=== PATIENT | female | born 1955 | race Caucasian/White ===

== ENCOUNTER → 2017-06-20 16:27 | Outpatient (CLI) | payer BC, SELFPAY ==
[2017-06-20 16:32] LABS: Mucous, Urine 0 SEEN /hpf (<or=2+); Red Blood Cells-Urine 0 SEEN /hpf (0-5); Squamous Epithelial Cells - UA 0 SEEN /hpf (5-10)
[2017-06-20 17:56] LABS: Glucose, Dipstick Normal (Normal); Ketone-Dipstick Negative (Negative); Leukocyte Esterase-Dipstick 100 /ul (Negative); Nitrite-Dipstick Positive (Negative); Occult Blood-Urine 10 /ul (Negative); Protein-Dipstick 15 mg/dl (Negative); Urine Clarity Sl. Cloudy (Clear); Urine Urobilinogen 8 mg/dl (Normal)
[2017-06-20 18:04] LABS: Color, Urine SEE COMMENT BELOW (Yellow); Urine Bilirubin Dipstick 6 mg/dL (Negative)
[2017-06-20 19:03] LABS: Bacteria 1+ /hpf (None Seen); White Blood Cells 50-100 SEEN /hpf (0-5)
== END ==
PROVIDERS: Family Provider Family Medicine; PCP Family Medicine; Visit Provider Family Medicine
DX: R30.0 Dysuria (principal)
CPT/HCPCS: 36415; 81001; 87086; 87088; 87186

== ENCOUNTER → 2017-07-09 13:51 | Outpatient (CLI) | payer BC, SELFPAY | PROVIDERS: Family Provider Family Medicine; PCP Family Medicine; Visit Provider Family Medicine | DX: R30.0 Dysuria (principal) | CPT/HCPCS: 87077; 87086; 87088; 87186 ==

== ENCOUNTER 2017-07-10 09:30 | Outpatient (RCR) | payer BC, SELFPAY ==
--- NOTE | 2017-06-23 15:49 | HP.PTEVAL_ITS ---
Patient's Visit Information YENNY LYNN is a 62 year old F referred to Physical Therapy by ROSALIO NUGENT with a diagnosis of S/P L3-S1 POSTERIOR FUSION WITH L5-S1 ALIP AND DURAL TEAR 01/23/17. Date of Evaluation: 06/23/17 Physical Therapist: Nita Cho - Visit Plan Frequency: 2x /Week Duration: 3 Months Plan: *NO BENDING OR TWISTING* (PATIENT IS ALSO UNDER RESTRICTION FROM LIFTING NOW PER PATIENT REPORT). VERY SLOW PROGRESSION OF AQUATIC THERAPY FOR POSTURE CORRECTION/STRENGTHENING, INSTRUCTION IN APPROPRIATE BODY MECHANICS AND ACTIVITY MODIFICATIONS. DLS STARTING WITH A NEUTRAL SPINE. EMIGDIO LE ROM, STRETCHING AND STRENGTHENING. HEP INSTRUCTION. - Subjective Subjective: Work/Leisure: NOT CURRENTLY WORKING AND NOT SURE IF SHE IS GOING TO BE ABLE TO GO BACK. Disability: ON CARE HOME DISABILITY THROUGH WORK. Present symptoms: NEAR CONSTANT PAIN ACROSS LOW BACK. INTERMITTENT EMIGDIO SHERMAN PAIN AND FOOT CRAMPS. (ALSO HAS NECK PAIN). Present since: 2012. Pain Scale : WORST 8/10, LEAST 0/10. PATIENT REPORTS HER PAIN HAS STARTED TO GET WORSE LATELY AND SHE THINKS IT IS BECAUSE SHE IS STARTING TO GET MORE ACTIVE. Currently: 07/12. Commenced as a result of: NO APPARENT REASON. Symptoms at onset: LOW BACK. Worse: NORMAL ACTIVITIES, DOING LAUNDRY, *SITTING IN A CHAIR *, BEING WITH GRANDCHILDREN. NEW MATTRESS THAT SHE GOT ABOUT 2 MONTHS AGO. Better: LYING DOWN FLAT ON BACK. ICE. MEDICATION. Disturbed sleep: YES. Previous history/Previous treatment: THIS IS HER THIRD BACK SURGERY. SHE HAS HAD PT AND [facility] PRIOR TO THIS LAST SURGERY IN JAN 2017. Coughing/sneezing/ straining: ? Gait: NO AD. INCREASED PAIN WITH PROLONGED WALKING. Difficulty initiating urinatin: NO. Accidents: NO. CHILDHOOD INJURY FROM HITTING A ROCK DIVING INTO A PICKETT. FELL OUT OF THE SHOWER TEENAGER. Unexplained weight loss: NO. Imaging: IMAGING AFTER SURGERY LOOKS GOOD ACCORDING TO DR. WYATT PER PATIENT REPORT. PMH: LEFT FOOT SURGERY 2011. HYSTERECTOMY ABOUT A YEAR AGO. - Objective Sitting Posture: POOR. Standing Posture: POOR. SCOLIOSIS. Lordosis: REDUCED. Active Correction of posture: WORSE. Other Observations: PATIENT CATCHES HER SELF BENDING AND TWISTING IN CLINIC TODAY AND TRIES TO AVOID. Motor deficit: EMIGDIO LE STRENGTH GROSSLY 4/5 WITH MMT. PROCEEDED CAREFULLY WITH TESTING. Sensory deficit: EMIGDIO LE LIGHT TOUCH SENSATION IS INTACT AND SYMMETRICAL WITH TESTING. ROM deficit: TIGHT EMIGDIO HIP FLEXORS. EMIGDIO HAMSTRING AND GASTROC SOLEUS TIGHTNESS WELL. Dural Signs: NEGATIVE EMIGDIO LE DURAL SIGNS. Lumbar mvmt loss: NT DUE TO CURRENT RESTRICTIONS. Core strength: POOR. Palpation: EMIGDIO LUMBAR TENDERNESS. INCISIONS LOOK TO BE WELL HEALED WITHOUT ANY SIGNS OF INFECTION. - Goals Goal 1:: DECREASE C/O LOW BACK AND EMIGDIO LE SX'S. Goal Time Frame: 4-6 Weeks Goal 2:: IMPROVE SITTING, STANDING, WALKING, ADL, RECREATIONAL AND HOMEMAKING FUNCTION. Goal Time Frame: 4-6 Weeks Goal 3:: INSTRUCT IN PROPHYLAXIS Goal Time Frame: 4-6 Weeks - Rehabilitation Potential Rehabilitation Potential: Fair - Anticipated Interventions Patient/Client Instruction: Educate patient on: Condition, Plan of Care, Risk Factors, Benefits of Fitness Program For the Purpose of:: To improve self management Therapeutic Exercise to Include: Strength training, Body mechanics, Postural training, In an aquatic setting, Dynamic Lumbar Stabilization Comment: AQUATIC THERAPY PROGRESSING TO LAND BASED PT TOLERATED. For the Purpose of:: To improve ability of physical actions for home/community/ work/leisure Manual Therapy Techniques to Include: Soft tissue mobilization For the Purpose of:: To decrease pain, To decrease swelling/inflammation, To improve nutrient delivery to tissue Thank you for the opportunity to evaluate your patient. For Medicare and Medicare HMO plans, please review the plan of care and approve it. It will need to be FAXED BACK to us at [phone] for Medicare purposes. Please let me know if there are questions or concerns regarding this plan of care. Physician Signature: Date:
--- NOTE | 2017-11-11 13:59 | HP.PTDCNRP_ITS ---
HP - Discharge Summary (1) - Patient Information YENNY LYNN was seen in my office for initial evaluation on 06/23/17. The following Plan of Care was established for this patient: Initial Frequency: 2x /Week Initial Duration: 3 Months - Anticipated Interventions Patient/Client Instruction: Educate patient on: Condition, Plan of Care, Risk Factors, Benefits of Fitness Program For the Purpose of:: To improve self management Therapeutic Exercise to Include: Strength training, Body mechanics, Postural training, In an aquatic setting, Dynamic Lumbar Stabilization For the Purpose of:: To improve ability of physical actions for home/community/ work/leisure Manual Therapy Techniques to Include: Soft tissue mobilization For the Purpose of:: To decrease pain, To decrease swelling/inflammation, To improve nutrient delivery to tissue This patient was last seen in our office 07/10/17. Pertinent comments regarding their Physical therapy will appear below: This patient has not returned to Physical Therapy and is appropriate to return to MD for further follow-up as needed. At this point I will be discontinuing this patient from physical therapy. I would be happy to see this patient again in the future if found appropriate by the physician. Thank you! Nita Cho
== END 2017-07-10 19:00 | disposition home or self-care (01) ==
LOC: PT 09:30
PROVIDERS: Family Provider Family Medicine; PCP Family Medicine
DX: Z98.1 Arthrodesis status (principal)
CPT/HCPCS: 97113; 97162

== ENCOUNTER → 2017-08-15 13:17 | Outpatient (CLI) | payer BC, SELFPAY ==
[2017-08-15 13:24] LABS: Lyme Ab Screen Interpretation REF LAB
[2017-08-15 14:16] LABS: Absolute Lymphocyte Count 1.79 X10^3/ul (0.83-4.51); Basophil# 0.02 X10^3/uL; Basophil% 0.3 % (0-1); Eosinophil# 0.05 X10^3/uL; Eosinophils% 0.8 % (0-5); Hematocrit 40.3 % (37-47); Hemoglobin 12.6 g/dl (12.0-15.0); Lymphocyte # 1.79 X10^3/ul (4.0); Lymphocyte % 28.4 % (19-41); Mean Corp Hgb Conc 31.3 g/gl (32-36); Mean Corpuscular Hgb 31.3 pg (27.0-32.0); Mean Platelet Vol. 10.1 fl (6.2-12.0); Monocyte# 0.46 X10^3/uL; Monocyte% 7.3 % (0-10); Neutrophil # 3.98 X10^3/uL (2.7-7.7); Neutrophil % 63.2 % (47-70); Platelet Count 259 K/mm3 (150-450); RBC Distribution Width CV 13.4 % (11.6-14.6); Red Blood Count 4.03 M/mm3 (4.2-5.4); White Blood Count 6.3 K/mm3 (4.4-11.0)
[2017-08-15 14:17] LABS: POSITIVE COUNT NO; POSITIVE DIFFERENTIAL NO; POSITIVE MORPHOLOGY NO
[2017-08-15 14:26] LABS: Vitamin D,25 Hydroxy 21.2 ng/mL (29.95-100.01)
[2017-08-15 14:41] LABS: ALB/GLOB Ratio 0.9 RATIO (0.9-2.4); AST(SGOT) 17 U/L (15-37); Alanine Aminotransfer ALT/SGPT 24 U/L (13-56); Albumin, Serum 3.6 g/dL (3.2-5.0); Alkaline Phosphatase 46 U/L (45-117); Anion Gap 6 (5-15); BUN 23 mg/dL (7-18); BUN/Creat Ratio 28.4 RATIO (10-20); Calcium,Total 8.7 mg/dL (8.5-10.1); Chloride 106 mmol/L (98-107); Creatinine, Serum 0.81 mg/dL (0.55-1.02); EST Glomerular Filtration Rate 76 mL/min (>60); Est Glom Filt Rate - Afr Amer 92 mL/min (>60); Globulin 3.9 g/dL (2.2-4.2); Glucose 90 mg/dL (74-106); Protein, Total 7.5 g/dL (6.4-8.2); Sodium Level 141 mmol/L (136-145)
[2017-08-17 07:55] LABS: Lyme Scn Total Ab w/Rflx <0.91 ISR (0.00-0.90)
== END ==
PROVIDERS: Family Provider Family Medicine; PCP Family Medicine; Visit Provider Family Medicine
DX: M13.0 Polyarthritis, unspecified (principal)
CPT/HCPCS: 36415; 80053; 82306; 84443; 85025; 86618

== ENCOUNTER → 2017-10-10 12:28 | Outpatient (CLI) | payer BC, SELFPAY ==
--- NOTE | 2017-10-10 12:28 | DT_ITS ---
This patient was seen during an EMR downtime October 06, 2017 - October 13, 2017. This patient may have a combination of paper and electronic documentation or all paper documentation. All documentation is viewable within the e-chart portion of [facility] for each patient visit.
== END ==
PROVIDERS: Visit Provider Family Medicine
DX: R30.0 Dysuria (principal)
CPT/HCPCS: 81001; 87077; 87086; 87088; 87186

== ENCOUNTER → 2017-10-14 14:39 | Outpatient (CLI) | payer BC, SELFPAY ==
--- NOTE | 2017-10-14 14:55 | RAD_ITS ---
STUDY: X-RAY - LUMBAR SPINE REASON FOR EXAM: Female, 62 years old. Increasing low back pain for 5 days. TECHNIQUE: 2 view(s) of the lumbar spine were obtained. COMPARISON: August 05, 2016 FINDINGS: There is generalized osteopenia. The patient has undergone posterior fusion from L3 to S1 since the prior comparison studies. There are laminectomy defects at L4-5 and there is lung grafting at this site. No complications are noted. There is rotatory levoscoliosis of the lumbar spine. There is mild intervertebral disc space narrowing most marked at L4-5 and L5-S1. There is vascular calcification. RAD/Lumbar Spine 2 or 3 Views IMPRESSION: Osteopenia with postsurgical changes. No complications are noted. Electronically Signed: Jr Vasquez MD at 13:50 EDT , Service support ,
== END ==
PROVIDERS: Family Provider Family Medicine; PCP Family Medicine
DX: M54.5 Low back pain (principal)
CPT/HCPCS: 72100

== ENCOUNTER → 2018-01-19 13:08 | Outpatient (CLI) | payer BC, SELFPAY ==
--- NOTE | 2018-01-19 13:15 | RAD_ITS ---
STUDY: X-RAY - LEFT SHOULDER REASON FOR EXAM: Female, 62 years old. Left shoulder pain after fall TECHNIQUE: 4 view(s) of the shoulder. COMPARISON: None. FINDINGS: There is mild degenerative arthrosis of the glenohumeral articulation. There is degenerative arthrosis of the acromioclavicular joint without inferior osseous spur formation. Normal acromion. Normal humeral head and visualized proximal humerus. The soft tissue structures are unremarkable. Normal visualized pulmonary apex. RAD/Shoulder min 2 Views IMPRESSION: Mild degenerative change. No evidence of fracture or dislocation Electronically Signed: Neymar Mccann DO at 13:34 EDT Tel , Service support ,
== END ==
PROVIDERS: Family Provider Family Medicine; PCP Family Medicine; Visit Provider Nurse Practitioner Family
DX: M25.512 Pain in left shoulder (principal)
CPT/HCPCS: 73030

== ENCOUNTER → 2018-02-16 10:26 | Outpatient (CLI) | payer BC, SELFPAY ==
[2018-02-16 12:24] LABS: Absolute Lymphocyte Count 2.16 X10^3/ul (0.83-4.51); Absolute Neutrophil Count 5.3 X10^3/uL (2.0-7.7); Basophil# 0.05 X10^3/uL; Basophil% 0.6 % (0-1); Eosinophil# 0.12 X10^3/uL; Eosinophils% 1.4 % (0-5); Hematocrit 40.7 % (37-47); Hemoglobin 13.2 g/dl (12.0-15.0); Lymphocyte # 2.16 X10^3/ul (4.0); Lymphocyte % 25.3 % (19-41); Mean Corp Hgb Conc 32.4 g/gl (32-36); Mean Corpuscular Volume 98.8 fL (81-99); Mean Platelet Vol. 10.9 fl (6.2-12.0); Monocyte# 0.88 X10^3/uL; Monocyte% 10.3 % (0-10); Neutrophil # 5.27 X10^3/uL (2.7-7.7); Neutrophil % 61.8 % (47-70); POSITIVE COUNT NO; POSITIVE DIFFERENTIAL NO; POSITIVE MORPHOLOGY NO; Platelet Count 264 K/mm3 (150-450); RBC Distribution Width CV 13.5 % (11.6-14.6); RBC Distribution Width SD 47.7 fl (35.1-43.9); Red Blood Count 4.12 M/mm3 (4.2-5.4); White Blood Count 8.5 K/mm3 (4.4-11.0)
[2018-02-16 12:59] LABS: ALB/GLOB Ratio 0.8 RATIO (0.9-2.4); AST(SGOT) 13 U/L (15-37); Alanine Aminotransfer ALT/SGPT 37 U/L (13-56); Albumin, Serum 3.4 g/dL (3.2-5.0); Alkaline Phosphatase 78 U/L (45-117); Anion Gap 10 (5-15); BUN 27 mg/dL (7-18); BUN/Creat Ratio 33.7 RATIO (10-20); CRP < 2.90 mg/L (0.0-3.0); Chloride 108 mmol/L (98-107); EST Glomerular Filtration Rate 77 mL/min (>60); Est Glom Filt Rate - Afr Amer 93 mL/min (>60); Globulin 4.2 g/dL (2.2-4.2); Glucose 119 mg/dL (74-106); Potassium 3.5 mmol/L (3.5-5.1); Protein, Total 7.6 g/dL (6.4-8.2); Sodium Level 143 mmol/L (136-145)
== END ==
PROVIDERS: Family Provider Family Medicine; PCP Family Medicine; Referring Provider Family Medicine; Visit Provider Family Medicine
DX: K57.92 Diverticulitis of intestine, part unspecified, without perforation or abscess without bleeding (principal)
CPT/HCPCS: 36415; 80053; 85025; 86140

== ENCOUNTER → 2018-02-17 09:58 | Outpatient (CLI) | payer BC, SELFPAY ==
--- NOTE | 2018-02-17 16:07 | PFTCOMP ---
COMPLETE PULMONARY FUNCTION TEST INTERPRETATION Brief HPI: Patient is a 63 year old female, currently under the care of myself, who presents to [facility] for complete pulmonary function tests secondary to diagnosis of bronchiectasis. Respiratory therapist reports good effort and reproducible results. Interpretation: Forced expiration spirometry shows no large airways obstructive ventilatory defect with an FEV1 of 92% predicted. There is no significant bronchodilator response by ATS criteria. Spirograms are of good quality and plateau slowly, indicating slowly emptying areas of the lungs. The respiratory flow volume loop shows decreased expiratory flow rates at high lung volumes consistent with small airways obstruction. Lung volumes by body plethysmography show a normal total lung capacity at 5.35 L, 110% predicted. All other lung volumes are within normal limits. Diffusion capacity by carbon monoxide is normal at 76% predicted. The airway resistance is normal. Compared to previous pulmonary function tests from 12/13/2016, there has been no significant change. Impression: These pulmonary function tests are within normal limits. No significant change compared to previous.
== END ==
PROVIDERS: Family Provider Family Medicine; PCP Family Medicine; Referring Provider Internal Medicine Critical Care Medicine; Visit Provider Internal Medicine Critical Care Medicine
DX: K57.92 Diverticulitis of intestine, part unspecified, without perforation or abscess without bleeding (principal); J45.909 Unspecified asthma, uncomplicated
CPT/HCPCS: 87506; 94060; 94726; 94729

== ENCOUNTER → 2018-02-19 17:58 | Outpatient (CLI) | payer BC, SELFPAY | PROVIDERS: Family Provider Family Medicine; PCP Family Medicine; Referring Provider Urology; Visit Provider Urology | DX: N39.0 Urinary tract infection, site not specified (principal) | CPT/HCPCS: 87086 ==

== ENCOUNTER 2018-03-05 09:51 | Day surgery (SDC) | payer BC, SELFPAY ==
--- NOTE | 2018-03-05 | COLBX_PTH ---
PATIENT: YENNY LYNN LOC: EN U#:[id number] AGE/SX: 63/F ROOM: RE03/05/[address]: Dr. Luis Carlos Trevizo MD : 1955 BED: DIS: 03/05/2018 SPEC #: [id number] RECD: 03/05/18 13:43 STATUS: DEV SANTO #: [id number] SAUNDRA: 03/05/18 00:[address]: Luis Carlos Trevizo DEPT: SURGICAL PATHOLOGY RECD BY: Silvestre Sanchez ENTERED: 03/05/18 13:44 SP TYPE: COLON BX OTHR DR: Dr. Julian Asher MD Tissues: COLON BIOPSY Procedures: Surgery Specimen Level IV HEADER OPERATION: Rectal bleeding PRE-OP DIAGNOSIS: Diarrhea TISSUE SUBMITTED: Random colon biopsies MICROSCOPIC DIAGNOSIS Colon, random biopsy: No significant pathologic change. No evidence of colitis. AM:samir 03/06/18 MICROSCOPIC DESCRIPTION Slides are reviewed. GROSS DESCRIPTION Received in fixative is one container labeled with the patient's name and designated random colon biopsy. The specimen consists of multiple irregular fragments of light engel soft tissue that in aggregate measure 1 x 0.5 x 0.2 cm. The specimen is totally submitted in one cassette. / AM:samir 03/05/18 TC:5 CPT: 42700
[2018-03-05 10:12] VITALS: BP 111/68; PULSE 73; RESP 16; TEMP 36.5; O2SAT 100
--- NOTE | 2018-03-05 11:05 | EKG12_ITS ---
Test Reason : PRE-OP Blood Pressure : / mmHG Vent. Rate : 068 BPM Atrial Rate : 068 BPM P-R Int : 144 ms QRS Dur : 084 ms QT Int : 444 ms P-R-T Axes : 001 -17 039 degrees QTc Int : 472 ms Normal sinus rhythm Leftward axis Confirmed by RAVI LEES, CARLINE ([id number]), business editor MARY ANN HORNE ([id number] on 03/05/2018 1:09:26 PM Referred By: Luis Carlos Trevizo Confirmed By:CARLINE RODRIGUES MD
[2018-03-05 11:40] VITALS: BP 111/68; BP 127/78; PULSE 70; RESP 16; TEMP 36.2; O2SAT 98
--- NOTE | 2018-03-05 11:42 | OP.ENDO_ITS ---
Patient Name: Jorge Luis Ding Procedure Date: 03/05/2018 10:51 AM Date of : 1955 Age: 63 Procedure: Colonoscopy Indications: Rectal bleeding Providers: Luis Carlos Trevizo MD Medicines: See the Anesthesia note for documentation of the administered medications Patient Profile: Last Colonoscopy: February 2011. Complications: No immediate complications. Procedure: Pre-Anesthesia Assessment: - Prior to the procedure, a History and Physical was performed, and patient medications and allergies were reviewed. The patient's tolerance of previous anesthesia was also reviewed. The risks and benefits of the procedure and the sedation options and risks were discussed with the patient. All questions were answered, and informed consent was obtained. Prior Anticoagulants: The patient has taken no previous anticoagulant or antiplatelet agents. ASA Grade Assessment: II - A patient with mild systemic disease. After reviewing the risks and benefits, the patient was deemed in satisfactory condition to undergo the procedure. After I obtained informed consent, the scope was passed under direct vision. Throughout the procedure, the patient's blood pressure, pulse, and oxygen saturations were monitored continuously. The Colonoscope was introduced through the anus and advanced to the cecum, identified by appendiceal orifice and ileocecal valve. The colonoscopy was unusually difficult due to a tortuous colon. Successful completion of the procedure was aided by increasing the dose of sedation medication, changing the patient to a supine position and using manual pressure. The patient tolerated the procedure well. The quality of the bowel preparation was adequate to identify polyps. Scope In: 11:05:49 AM Scope Withdrawal Time 0 hours 8 minutes 7 seconds Scope Out: 11:33:48 AM Total Procedure Duration Time 0 hours 27 minutes 59 seconds Findings: Hemorrhoids were found on perianal exam. Multiple diverticula were found in the sigmoid colon and descending colon. There was no evidence of diverticular bleeding. Biopsies for histology were taken with a cold forceps from the entire colon for evaluation of microscopic colitis. Impression: - Hemorrhoids found on perianal exam. Grade I internal, non bleeding - Severe diverticulosis in the sigmoid colon and in the descending colon. There was no evidence of diverticular bleeding. Random biopsies obtained for possible microcytic colitis No active bleeding at the time of the exam Very tortuous sigmoid/descending/splenic flexure. Etiology to history of bleeding not detected on this exam Recommendation: - Discharge patient to home. - Resume previous diet. - Continue present medications. - Telephone my office for pathology results in 1 week. - Repeat colonoscopy in 10 years for screening purposes. Procedure Code(s): --- Professional --- 76354, Colonoscopy, flexible; with biopsy, single or multiple Diagnosis Code(s): --- Professional --- K64.9, Unspecified hemorrhoids K62.5, Hemorrhage of anus and rectum K57.30, Diverticulosis of large intestine without perforation or abscess without bleeding CPT copyright 2017 [employer]. All rights reserved. The codes documented in this report are preliminary and upon leadership coach review may be revised to meet current compliance requirements. Luis Carlos Trevizo MD 03/05/2018 11:41:43 AM This report has been signed electronically. Number of Addenda: 0 Note Initiated On: 03/05/2018 10:51 AM
[2018-03-05 11:45] VITALS: BP 111/68; BP 121/77; PULSE 73; RESP 16; O2SAT 96
[2018-03-05 11:50] VITALS: BP 111/68; BP 121/75; PULSE 70; RESP 16; O2SAT 95
[2018-03-05 11:55] VITALS: BP 111/68; BP 124/81; PULSE 66; RESP 16; TEMP 36.4; O2SAT 97
[2018-03-05 12:12] VITALS: BP 111/68
== END 2018-03-05 12:12 | disposition home or self-care (01) ==
LOC: EN 09:52 → AC 09:53
PROVIDERS: Family Provider Family Medicine; PCP Family Medicine; Referring Provider Surgery; Visit Provider Surgery
PROC: 0DJD8ZZ Inspection of Lower Intestinal Tract, Via Natural or Artificial Opening Endoscopic (ICD-10-PCS; CPT 45378; principal; 2018-03-05 10:55)
DX: K64.0 First degree hemorrhoids (principal); K57.30 Diverticulosis of large intestine without perforation or abscess without bleeding; Q43.8 Other specified congenital malformations of intestine; M41.9 Scoliosis, unspecified; J44.9 Chronic obstructive pulmonary disease, unspecified; K21.9 Gastro-esophageal reflux disease without esophagitis; M19.90 Unspecified osteoarthritis, unspecified site; K58.9 Irritable bowel syndrome, unspecified; F41.9 Anxiety disorder, unspecified; Z78.0 Asymptomatic menopausal state; Z87.448 Personal history of other diseases of urinary system; Z85.828 Personal history of other malignant neoplasm of skin; Z86.19 Personal history of other infectious and parasitic diseases; Z79.82 Long term (current) use of aspirin; Z79.899 Other long term (current) drug therapy; Z87.891 Personal history of nicotine dependence
CPT/HCPCS: 45380; 88305; 93005; J7120

== ENCOUNTER → 2018-03-18 12:20 | Outpatient (CLI) | payer BC, SELFPAY ==
[2018-03-18 14:12] LABS: Absolute Lymphocyte Count 1.49 X10^3/ul (0.83-4.51); Absolute Neutrophil Count 4.2 X10^3/uL (2.0-7.7); Basophil# 0.03 X10^3/uL; Basophil% 0.4 % (0-1); Hematocrit 41.2 % (37-47); Hemoglobin 13.1 g/dl (12.0-15.0); Lymphocyte # 1.49 X10^3/ul (4.0); Lymphocyte % 22.1 % (19-41); Mean Corp Hgb Conc 31.8 g/gl (32-36); Mean Corpuscular Hgb 32.1 pg (27.0-32.0); Mean Platelet Vol. 10.7 fl (6.2-12.0); Monocyte# 0.81 X10^3/uL; Neutrophil # 4.17 X10^3/uL (2.7-7.7); Neutrophil % 62.1 % (47-70); Platelet Count 247 K/mm3 (150-450); Red Blood Count 4.08 M/mm3 (4.2-5.4); White Blood Count 6.7 K/mm3 (4.4-11.0)
[2018-03-18 14:14] LABS: POSITIVE COUNT NO; POSITIVE DIFFERENTIAL NO; POSITIVE MORPHOLOGY NO
[2018-03-18 14:22] LABS: ALB/GLOB Ratio 0.8 RATIO (0.9-2.4); AST(SGOT) 16 U/L (15-37); Alanine Aminotransfer ALT/SGPT 35 U/L (13-56); Albumin, Serum 3.4 g/dL (3.2-5.0); Alkaline Phosphatase 75 U/L (45-117); Anion Gap 7 (5-15); BUN 27 mg/dL (7-18); BUN/Creat Ratio 33.8 RATIO (10-20); Calcium,Total 8.7 mg/dL (8.5-10.1); Chloride 108 mmol/L (98-107); EST Glomerular Filtration Rate 77 mL/min (>60); Est Glom Filt Rate - Afr Amer 93 mL/min (>60); Globulin 4.1 g/dL (2.2-4.2); Glucose 84 mg/dL (74-106); Hemoglobin A1c 5.4 % (4.2-6.3); Magnesium 2.1 mg/dL (1.6-2.6); Potassium 3.8 mmol/L (3.5-5.1); Protein, Total 7.5 g/dL (6.4-8.2); Sodium Level 143 mmol/L (136-145)
== END ==
PROVIDERS: Family Provider Family Medicine; PCP Family Medicine; Referring Provider Family Medicine; Visit Provider Family Medicine
DX: R25.2 Cramp and spasm (principal)
CPT/HCPCS: 36415; 80053; 83036; 83735; 85025

== ENCOUNTER → 2018-04-07 13:00 | Outpatient (CLI) | payer BC, SELFPAY | PROVIDERS: Family Provider Family Medicine; PCP Family Medicine; Referring Provider Urology; Visit Provider Urology | DX: R30.0 Dysuria (principal); R39.15 Urgency of urination | CPT/HCPCS: 87077; 87086; 87088; 87186 ==

== ENCOUNTER → 2018-04-08 10:08 | Outpatient (CLI) | payer BC, SELFPAY ==
[2018-03-12 07:14] VITALS: BMI 22.3
--- NOTE | 2018-04-08 10:14 | BD_ITS ---
STUDY: DUAL ENERGY X-RAY ABSORPTIOMETRY / DXA REASON FOR EXAM: Female, 63 years old. The patient is postmenopausal. Loss of height. TECHNIQUE: Bone Mineral Density (BMD) measurements of lumbar spine and bilateral hips were obtained. COMPARISON: Comparison is made with prior examination dated October 19, 2015. FINDINGS: Lumbar Spine (L1-L4): g/cm2 (0.600) / T-score (-4.7) / Z-score (-3.2) Findings are suggestive of osteoporosis with a high fracture risk. Left Femur Total: g/cm2 (0.611) / T-score (-3.1) / Z-score (-2.0) Left Femoral Neck: g/cm2 (0.647) / T-score (-2.8) / Z-score (-1.4) Right Femur Total: g/cm2 (0.679) / T-score (-2.6) / Z-score (-1.5) Right Femoral Neck: g/cm2 (0.704) / T-score (-2.4) / Z-score (-1.0) The T-Scores on the most recent prior examination were: Lumbar Spine (L1-L4): There has been worsening of bone density since the previous examination. Left Femur Total: which represents a worsening of 5.1%. Right Femur Total: which represents an improvement of 2.1%. BD/Dexa Bone Density Study IMPRESSION: The patient is considered osteoporotic as outlined below according to World Mandeep Organization (WHO) criteria with a high fracture risk. There has been worsening of bone density since the previous examination. Reference Information: The T-score is the number of standard deviations above or below the standard which is normal for young adults at their peak bone mineral density. The World Health Organization (WHO) interprets the T-scores as follows: Above -1 Normal bone density Between -1 and -2.5 Osteopenia Equal to / or below -2.5 Osteoporosis As a practical clinical guideline, osteopenia may be graded as follows: Mild -1 through -1.5 Moderate -1.6 through -2.0 Severe -2.1 through -2.4 The Z-score is the number of standard deviations above or below age-matched controls. A Z-score of less than -1.5 would be considered abnormal. References: 1. NIH Osteoporosis and Related Bone Diseases http://www.osteo.org 2. International Society for Clinical Densitometry http://www.iscd.org 3. National Osteoporosis Foundation http://www.nof.org Electronically Signed: Aidan Viramontes MD at 15:50 EST Tel [phone], Service support ,
== END ==
PROVIDERS: Family Provider Family Medicine; PCP Family Medicine; Visit Provider Family Medicine
DX: M81.0 Age-related osteoporosis without current pathological fracture (principal)
CPT/HCPCS: 77080

== ENCOUNTER → 2018-04-24 14:22 | Outpatient (CLI) | payer BC, SELFPAY ==
--- NOTE | 2018-04-24 14:25 | CT_ITS ---
STUDY: CT CHEST WITHOUT CONTRAST REASON FOR EXAM: Female, 63 years old. Chest nodule. RADIATION DOSAGE (If Supplied By Facility): CTDIvol = ( 7.46 ) mGy, DLP = ( 211.10 ) mGycm TECHNIQUE: Transaxial imaging was performed without the administration of intravenous contrast material. Individualized dose optimization techniques were used for this CT. COMPARISON: April 29, 2014, September 04, 2015 and May 23, 2017 FINDINGS: There are emphysematous changes present. Within the right middle lobe along the right minor fissure there is a stable smooth 6.8 mm nodule present. There is a new cluster of nodules within the periphery of the right middle lobe with a tree-in-bud configuration. There is biapical scarring present. There are calcifications of the coronary arteries. Normal mediastinum. Normal hilar regions. Normal unenhanced pulmonary arteries. There is atherosclerosis of the aortic arch and descending thoracic aorta. There is a stable rounded soft tissue nodule within the right breast. There are multi-level degenerative changes of the thoracic spine. There are pedicle screws and spinal rods noted within the visualized lower lumbar spine. There is no demonstrated abnormality of the visualized upper abdomen. CT/Chest without Contrast IMPRESSION: Stable 6.8 mm nodule within the right middle lobe since April 29, 2014 that has an appearance suggestive of an underlying lymph node. New cluster of nodular opacities within the right lower lobe likely secondary to a prior infectious process. Emphysema. Atherosclerosis. Electronically Signed: Marina Brand MD at 17:33 EST Tel , Service support ,
== END ==
PROVIDERS: Family Provider Family Medicine; PCP Family Medicine; Referring Provider Nurse Practitioner Acute Care; Visit Provider Nurse Practitioner Acute Care
DX: R91.1 Solitary pulmonary nodule (principal)
CPT/HCPCS: 71250

== ENCOUNTER 2018-06-23 11:40 | Outpatient (RCR) | payer BC, SELFPAY ==
[2018-05-01 14:50] VITALS: BMI 22.6
--- NOTE | 2018-06-23 15:53 | HP.FCE ---
HP OT Functional Capacity Eval - Task Lift Floor (Occasional 1-33% of Day): 5 lbs Floor (Frequent 34-66% of Day): negligible Floor (Constant 67-100% of Day): negligible Floor PDL: Sedentary Knee (Occasional 1-33% of Day): 10 lbs Knee (Frequent 34-66% of Day): 5 lbs Knee (Constant 67-100% of Day): negligible Knee PDL: Sedentary Waist (Occasional 1-33% of Day): 15 lbs Waist (Frequent 34-66% of Day): 7 lbs Waist (Constant 67-100% of Day): negligible Waist PDL: Sedentary-Light Shoulder (Occasional 1-33% of Day): 8 lbs Shoulder (Frequent 34-66% of Day): negligible Shoulder (Constant 67-100% of Day): negligible Shoulder PDL: Sedentary Overhead (Occasional 1-33% of Day): 5 lbs Overhead (Frequent 34-66% of Day): negligible Overhead (Constant 67-100% of Day): negligible Overhead PDL: Sedentary - Work Activity/Posture Bending: Frequent Ability (34-66% of day) Squatting: Occasional Ability (1-33% of day) Kneeling: No Ablility (0% of day) Comments: She should avoid this task at this time. Reaching out: Frequent Ability (34-66% of day) Reaching up: Frequent Ability (34-66% of day) Sitting: Occasional Ability (1-33% of day) Walking: Occasional Ability (1-33% of day) Standing: Frequent Ability (34-66% of day) - Reference Duration Sedentary Sedentary Light Light Light Medium Medium Medium Heavy Very Heavy Heavy Occasional (0-33% of day) Frequent (34-66% of day) Constant (67-100% of day) 10 # Negligible Negligible 15 # 8 # Negligible 20 # 10# Negli. 35 # 18 # 7 # 50 # 25 # 10 # 75 # 100 # >100 # 38 # 50 # >50 # 15 # 20 # >20 # - Patient Information Height: 1.63 m Weight:: 58.967 kg Hand Dominance: Right BP (Medication Use/Usual Values per pt report): no - Medical History Medical History Including Restrictions: No medication restrictions provided by pateint or by doctor. - Diagnoses Diagnoses: Jorge Luis was currently referred for functional capacity evaluation on this date of 06/23/17 due to chronic low back pain, spinal stenosis, and sacroilritis. PMHx: scoliosis of thoracolumbar spine, L4-S1 fusion (2016 and 2017), Lumbar disc disease, COPD, asthma, neuropathic pain degenerative disc disc, dejenerative joint disc, and osteoporesis. - Symptoms Symptoms: She notes that if she stands too long her feet go ?numb? and if sits too long feet will go ?numb?. She notes she gets muscle spasms at night and is currently on baclofen to help manage muscles spasms. She is currently on a pain management program. She was previously seeing Dr. Montelongo for spinal injections but explained the injections did not work. Per patient report she noted that Dr. Montelongo wanted to complete pain simulator but decided against it. She currently see Dr. Montelongo every three months. Medications come from Dr. Lb gonzalez. - Pain Pain: She notes she has not worked since first lumbar fusion in 2016. She noted that 2017 she underwent surgical revision surgery of 2016 fusion surgery. She noted that the surgery in 2016 resulted in her R side collapsing and causing a subdermal leak which resulted in spinal fusion revision. She notes that if she stands too long her feet go ?numb? and if sits too long feet will go ?numb?. She notes she gets muscle spasms at night and is currently on baclofen to help manage muscles spasms. She is currently not on a pain management program. She was previously seeing Dr. Montelongo for spinal injections but explained the injections did not work. Per patient report she noted that Dr. Montelongo wanted to complete pain simulator but decided against it. Jorge Luis is currently not on a pain management program. She noted she has start yoga in [facility] for gentle stretching ut has not been completing recently. Kelly Pain Questionnaire is a self-report pain assessment to determine a patient?s accurate psychodynamics for accurate pain rating. A score of 30 or high indicates poor psychodynamics and the greater probability of decreased accuracy with accurate pain reporting. Pre- Kelly: 43. Post Kelly: 58. Fear Avoidance Questionnaire (FAQ) is a client self-report assessment for 18-64+ that has shown to be reliable and valid for determining increased fear with movements. A score of 96 or higher indicates increased fear avoidance behaviors. FAQ Pre-testin. -Physical Activity Subscale: 24. -Work Subscale: 42. FAQ Post- testin. -Physical Activity Subscale: 24. -Work Subscale: 42. Oswestry Neck and Low back questionnaire is a self-report assessment in which patients report their perceived level of disability based on their perceived pain. Pre Oswestry : /50 or 48% percieved disability. Post Oswestry : 50 46% percieved disability - Work History Work History: She is no longer working. Jorge Luis reports that has not worked since her 2016 spinal fusion surgery. 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 She reports relatively no standing and sitting 8-10 hours. She noted short walking breaks. She noted occassionally walked throughout the day. - Behavioral Behavioral: I worked hard all my life, and would still be working if i haven't had so much back trouble.....Some days all I can do is lay on my back to help manage my pain. i hate taking pain medications but I relaly have no choice. - ADLS ADLS: She lives in [place] with two steps to enter with her . She noted she has 16 steps to get to bedroom and sleeps in bedroom completing 16 steps daily. She noted that there are 11 steps to basement where laundry is located, and she is able to complete with completing carrying laundry upstairs. She reports still driving, helping care for grandkids (does not lift), and completing all self-care tasks independently. She care for house isabel but cleans litter boxes. - Physical Examination Physical Examination: The purpose of this functional capacity evaluation (FCE) was to determine Jorge Luis?s physical ability. This one day FCE was performed in order to house wirer helper in the determination of Jorge Luis?s eligibility to get social security disability. Pain rated at start of session: 6/10 pain. Attempted to use functional pain scale but inconsisent pain. At first. Able to correct use of pain scale thoughout session. Aerobic limiting factor: 85% of max adjust HR= (220-age) *.85= 133 bpm. Calculated max weight: 60% of weight= 78 lbs. Resting Diagnostics: -Resting Blood Pressure: 142 / 93 mmHg. -Resting Heart Rate: 77 bpm. -Pulse Oximeter: 100 % ROM: Range of Motion: Lumbar Spine with goniometer: -Flexion: 0-15 , noted pain minimal and increased thoracic compensations noted with movements. Difficulty to get true reading lumbar spine. Completed inclinometer. -Extension: 0-12, noted pain minimal and increased thoracic compensations noted with movements. -Lateral Flexion: R 0-8 , L 0-12. Lumbar spine with use of inclinometer: -Flexion: L1 40 , L 5 46. oTotal flexion: ?10 degrees: 6. -Extension: L1 0-10 , L 5 0-5. oTotal extension: ?10 degrees: 5 degree Strength: Strength: Strength measurements completed with use of manual muscle testing and short arm access of dynamometer. Results are as follows: Upper Body: Shoulder flexion: R 4-/5, L 4-/5. -Dynamometer: R 7.7 lbs , L 5.6 lbs. Shoulder extension: R 4-/5, L 4-/5. -Dynamometer: R 10 , L 7.7 lbs. Shoulder abduction: R 4-/5, L 4-/5. -Dynamometer: R 6.8 , L 5.9 lbs. Shoulder adduction: R 4-/5, L 4-/5. -Dynamometer: R 9.0 , L 10.2 lbs. Shoulder Internal Rotation: R 4-/5, L 4-/5. -Dynamometer: R 9.8 , L 7.7 lbs. Shoulder External Rotation: R 4-/5, L 4-/5. -Dynamometer: R 6.5 , L 7.9 lbs. Elbow flexion: -Dynamometer: R 8.8 , L 9.3 lbs. Elbow extension: R 4-/5, L 4-/5. -Dynamometer: R 7.7 , L 8.2. Lower Body: Hip flexion: R 3+/5, L 3/5. -Dynamometer: R 9.5 , L 10.1. Hip adduction: R 4-/5, L 4-/5. -Dynamometer: R 8.5 , L 7.7 lbs. Hip abduction: R 4-/5, L 4-/5. -Dynamometer: R 9.8 , L 8.1. Knee Flexion: R 4-/5, L 4-/5. -Dynamometer: R 11.7 , L 11 lbs. Knee extension: R 4-/5, L 4-/5. -Dynamometer: R 9.4 , L 11.2 lbs. Plantarflexion: R 4-/5, L 4-/5. -Dynamometer: R 14.1, L 10.9 lbs. Dorsiflexion: R 4-/5, L 4-/5. -Dynamometer: R 13.6 , L 8.8 lbs. Inconsistencies noted with manual muscle testing and breaks consisently with minimal pressure. Completed dyanmometer testing Right Mirror Painter Strength Average: 33.66 Left Mirror Painter Strength Average: 30.33 Right Lateral Pinch Average: 6.66 Left Lateral Pinch Average: 6.00 Right Tripod Pinch Average: 3.66 Left Tripod Pinch Average: 6.00 Comments: Five Span Mirror Painter testing on Dynamometer: Position 1: R 15 , L 6. Position 2: R 15 , L 23. Position 3: R 17 , L 19. Position 4: R 10 , L 7. Position 5: R 4 , L 8. Coefficient of variation: Consistency of Effort: Rapid Mirror Painter Exchange Testing: Right Average: 18, 5, 12. Left Average: 17, 7, 19. Coefficient of Variation: Consistency of Effort: Sensation: Sensory Testing: Sensation testing completed on bilateral feet with monofilament touch test. A score of normal on touch test is 2.83 and within normal range with just some discrepancies for light touch is between 3.22-3.61. The higher the number in more complications related to patient?s ability to perceive touch related sensory stimuli. R foot: Great Toe 5.07 ,2nd 3.84 , 3rd 4.17 , 4th 4.56 , 5th 3.61. L foot: Great Toe 4.56 ,2nd 4.17 , 3rd 5.46 , 4th 4.74 , 5th 4.17. Red lined on few toes showing increased numbness and tingling feelings. Able to complete tailor sit to don and doff shoes and socks. Fine Motor: Fine motor: Completed the Purdue Pegboard test to further determine the patient?s ability to complete 20-3 step tasks, assess fine motor control and general dexterity needed to complete assembly like work. The results are as follows: Completed in standing position as perferred due to pain. Compensations of leaning of table noted. Right Hand: 10 pegs. -Percentile: Left Hand: 8 pegs. -Percentile. Both Hands: 5 pegs. -Percentile. R+ L+ Both: 23 pegs. -percentile: Assembly: 3. -percentile: Balance: Heart rate: 80 bpm. Oximeter: 97%. Functional reach test is used to determine static balance in patients. A score of 15 is normal and less than 10 increases risk of falling. A score of 6 or less significantly increases a patient?s risk of falling. [place] 1: 8 inches. [place] 2: 7.5 inches. [place] 3: 7.0 inches. Average: 7.5 inches. Heart rate: 78 bpm. Pulse Oximeter: 95%. Blood Pressure: 150/92 mmHg. Functional Gait Assessment (FGA) is a dynamic balance test to determine vestibular functioning and general dynamic balance ability of patient 18-65+. This assessment can be used with clients of various backgrounds to determine functional dynamic balance needed to complete every day work related tasks. 1.Gait Level Surface:2. 2.Change in Gait Speed: 2. 3.Gait with horizontal head turns: 2. 4.Gait with vertical head turns:2. 5.Gait and pivot turn:2. - needed short walking brake to get and take gabapetin. 6.Step over obstacle:1. 7.Gait with narrow base of support: 0. 8.Gait with eyes closed: 1. 9.Ambulating Backwards: 1. Heart rate prior to steps: 77 bpm. Blood Pressure: 135/105 mmHg. 10.Steps (20 stairs): 2. Total Score: 15/maximum score 30. Heart rate post stairs: 89 bpms. Pain: 5/10 - Non Material Handling Activities Bending: Heart rate prior to beginning with use of pulse oximeter: 78 bpm. 3x, 10x in completed 6x with short standing break and then 4 x more repetitions with a total time to complete of 59 seconds. Noted after 6x I really don't want to do anymore , pain is getting bad. No mechanical comepnsations noted and encouraged to continue if tolerable. Able to continue. 10x faster in 35 seconds. Completed 50% of full bend. Observed with fair body mechanics. Completes with. Heart rate posttest with use of pulse oximeter: 97 bpm. Nina Rate of Perceived Exertion: 8. Perceived pain: 5.5/10 Squatting: Heart rate prior to beginning with use of pulse oximeter: 77 bpm. 3x, 10x in 33 seconds, and 10x faster in 16 seconds. Heart rate posttest with use of pulse oximeter: 82. Nina Rate of Perceived Exertion: 8. Perceived pain:5.5/10 Kneeling: Heart rate prior to beginning with use of pulse oximeter: 79. 3x but increased mechanical changes and deficits observed and task stopped due to safety concerns. Need for short 2 mins seated break post task. Completed with poor body mechanics. She completed slight right lateral leaning, increased need to use right upper extremity for external suppor to complete task. This task should ne avoid due to mechanical deficits. Heart rate posttest with use of pulse oximeter: 92 bpm. Nina Rate of Perceived Exertion: 8. Perceived pain:5.5/10 Reaching out/up: Heart rate prior to begining with use of pulse oximeter: 89 bpm. From standing position: Reaching up: 3x, 10x in 12 seconds, and 10x faster in 7 seconds. From standing position: Reaching out: 3x, 10x in 16 seconds, and 10x faster in 8 seconds. Heart rate post test with use of pulse oximeter: 108. Nina Rate of Percieved Exertion: 10. Percieved pain: 5.5/10 Walking: Heart rate prior to begining with use of pulse oximeter: 76 bpm. Completes 100 yard walking test in 81 seconds. Completed walking 15 minutes with mild antalgic gait. Noted increased numbness in bilateral feet. Completed 1276 feets within 15 minutes of walking. Heart rate post test with use of pulse oximeter: 109 bpm. Blood Pressure: 104/66 mmHg. Nina Rate of Percieved Exertion: 7. Percieved pain: 5/10 Standing: Able to tolerate. Nina Rate of Perceived Exertion: 8. Perceived pain: between 5-5.5/10 Sitting: Heart rate prior to beginning with use of pulse oximeter: Able to tolerate about 15-20 minutes prior to needing to change position to standing. No pain medications with completion of task. Shortly took pain medication after starting session. Heart rate posttest with use of pulse oximeter: Nina Rate of Perceived Exertion: Perceived pain: Climbing Stairs: Heart rate prior to begining with use of pulse oximeter: 77 bpm. She is able to complete acsending and decending 20 stairs with use of 1x handrails and alternating fot pattern. Vision used to promote foot placement. Heart rate post test with use of pulse oximeter: 89 bpm. Nina Rate of Percieved Exertion: 8. Percieved pain: 5.5/10 - Dynamic Occasional Lifting Capacity Floor Lift: Heart rate prior to beginning with use of pulse oximeter: 78 bpm. Occasional Liftinx 5 lbs. Frequent lifting: negligible. Heart rate posttest with use of pulse oximeter: 88 bpm. Nina Rate of Perceived Exertion: 13. Perceived pain: 6/10 Knee Lift: Heart rate prior to beginning with use of pulse oximeter: 78 bpm. Occasional Liftinx 10 lbs. Frequent lifting: negligible. Heart rate posttest with use of pulse oximeter: 93 bpm. Nina Rate of Perceived Exertion: 13. Perceived pain: 6/10 Waist Lift: Heart rate prior to beginning with use of pulse oximeter: 75 bpm. Max weight: 20 lbs. Occasional Liftinx 15 lbs. Frequent liftinx 7 lbs. Heart rate posttest with use of pulse oximeter: 80 bpm. Nina Rate of Perceived Exertion: 13. Perceived pain: 6/10 Shoulder Lift: Heart rate prior to beginning with use of pulse oximeter: 81 bpm. Occasional Liftinx 8 lbs. Frequent liftinx 5lbs lbs. Heart rate posttest with use of pulse oximeter: 84. Nina Rate of Perceived Exertion: 13. Perceived pain: 6/10 Overhead Lift: Heart rate prior to beginning with use of pulse oximeter: 91 bpm. Occasional Liftinx 5lbs lbs. Frequent lifting: negligible. Heart rate posttest with use of pulse oximeter: 95 bpm. Nina Rate of Perceived Exertion: 13. Perceived pain:6/10 Carrying: Heart rate prior to beginning with use of pulse oximeter: 92 bpm. Occasional Liftinx 5 lbs. Frequent lifting: negligible. Increased compensatiosn noted. Heart rate posttest with use of pulse oximeter: 85 bpm. Nina Rate of Perceived Exertion: 13. Perceived pain: 6/10 Comments: Ending diagnositics: Heart rate: 79 bpm. Blood Pressure: 121/89 bpm
--- NOTE | 2018-06-25 11:16 | HP.OTFCE_ITS ---
HP OT Functional Capacity Eval - Task Lift Floor (Occasional 1-33% of Day): 5 lbs Floor (Frequent 34-66% of Day): negligible Floor (Constant 67-100% of Day): negligible Floor PDL: Sedentary Knee (Occasional 1-33% of Day): 10 lbs Knee (Frequent 34-66% of Day): 5 lbs Knee (Constant 67-100% of Day): negligible Knee PDL: Sedentary Waist (Occasional 1-33% of Day): 15 lbs Waist (Frequent 34-66% of Day): 7 lbs Waist (Constant 67-100% of Day): negligible Waist PDL: Sedentary-Light Shoulder (Occasional 1-33% of Day): 8 lbs Shoulder (Frequent 34-66% of Day): negligible Shoulder (Constant 67-100% of Day): negligible Shoulder PDL: Sedentary Overhead (Occasional 1-33% of Day): 5 lbs Overhead (Frequent 34-66% of Day): negligible Overhead (Constant 67-100% of Day): negligible Overhead PDL: Sedentary Comments: Some inconsistencies observed between upper extremity dynamometer testing and lifting ability. Mechanical changes observed but dynamometer testing indicates the potential of the patient's ability to complete increased weight with certain lifting tasks than what was observed. Spinal integrity is concern at this time and is major cause of decreased material handling ability. - Work Activity/Posture Bending: Frequent Ability (34-66% of day) Squatting: Occasional Ability (1-33% of day) Kneeling: No Ablility (0% of day) Comments: She should avoid this task at this time. Reaching out: Frequent Ability (34-66% of day) Reaching up: Frequent Ability (34-66% of day) Sitting: Occasional Ability (1-33% of day) Walking: Occasional Ability (1-33% of day) Standing: Frequent Ability (34-66% of day) - Reference Duration Sedentary Sedentary Light Light Light Medium Medium Medium Heavy Very Heavy Heavy Occasional (0-33% of day) Frequent (34-66% of day) Constant (67-100% of day) 10 # Negligible Negligible 15 # 8 # Negligible 20 # 10# Negli. 35 # 18 # 7 # 50 # 25 # 10 # 75 # 100 # >100 # 38 # 50 # >50 # 15 # 20 # >20 # - Patient Information Height: 1.63 m Weight:: 58.967 kg Hand Dominance: Right BP (Medication Use/Usual Values per pt report): no - Medical History Medical History Including Restrictions: No medication restrictions provided by pateint or by doctor. - Diagnoses Diagnoses: Jorge Luis was currently referred for functional capacity evaluation on this date of 06/23/17 due to chronic low back pain, spinal stenosis, and sacroilritis. PMHx: scoliosis of thoracolumbar spine, L4-S1 fusion (2016 and 2017), Lumbar disc disease, COPD, asthma, neuropathic pain degenerative disc, degenerative joint disc, and osteoporosis. Current Medication list: Medication list is extensive and. -OxyCODONE HCI 5MCx daily as needed for pain in back start 06/22/18. -Prolia 60 mg. -Celecoxib 100 Mg. -ValACYclovir HCL 500 MG. - Polyethylene Glycol 3350. -Gabapentin 600 mg, ? tablet in AM, 1 in PM, 1 at bedtime. -Isordil Titradose 40 MG. -Phenazopyridine HCL 200 MG. -Halobetasol Propionate .05%. -ProAir. -Baclofen 10 Mg every 8 hours for muscle cramps. - Alendronate Sodium 70Mg. -HydrOxyzine HCL 25 MCG. -RaNITidine HCL 150 MG. -Combivent Respimat 20-100 MCG/ACT. -Amitiza 24 MCG. -Vitamin D3 1000 UNIT. - Potassium Citrate ER 10 MEQ (1080 MG). -Symbicort 160-4.5 MCG/ACT. - Ipratropium Eitzen .03%. -Flonase Allergy Relief. -Esomeprazole Magnesium 40 MG. -Aspirin Children?s. -Clear eyes. Dosage only included for pain medications that patient reports taking regularly. - Symptoms Symptoms: She notes that if she stands too long her feet go ?numb? and if sits too long feet will go ?numb?. She notes she gets muscle spasms at night and is currently on baclofen to help manage muscles spasms. She is currently on a pain management program. She was previously seeing Dr. Montelongo for spinal injections but explained the injections did not work. Per patient report she noted that Dr. Montelongo wanted to complete pain simulator, but she decided against it. She currently sees Dr. Montelongo roughly every three months. Medications are managed by family doctor, Dr. Asher. - Pain Pain: She notes she has not worked since first lumbar fusion in 2016. She noted that 2017 she underwent surgical revision surgery of 2016 fusion surgery. She noted that the surgery in 2016 resulted in her R side collapsing and causing a subdermal leak which resulted in spinal fusion revision. She notes that if she stands too long her feet go ?numb? and if sits too long feet will go ?numb?. She notes she gets muscle spasms at night and is currently on baclofen to help manage muscles spasms. She is currently not on a pain management program. She was previously seeing Dr. Montelongo for spinal injections but explained the injections did not work. Per patient report she noted that Dr. Montelongo wanted to complete pain simulator but decided against it. Jorge Luis is currently not on a pain management program. She noted she has started yoga in [facility] for gentle stretching but has not been completing recently. 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 Kelly Pain Questionnaire is a self- report pain assessment to determine a patient?s accurate psychodynamics for accurate pain rating. A score of 30 or high indicates poor psychodynamics and the greater probability of decreased accuracy with accurate pain reporting. Pre- Kelly: 43. Post Kelly: 58. Fear Avoidance Questionnaire (FAQ) is a client self-report assessment for 18-64+ that has shown to be reliable and valid for determining increased fear with movements. A score of 96 or higher indicates increased fear avoidance behaviors. FAQ Pre-testin. -Physical Activity Subscale: 24. -Work Subscale: 42. FAQ Post- testin. -Physical Activity Subscale: 24. -Work Subscale: 42. Oswestry Neck and Low back questionnaire is a self-report assessment in which patients report their perceived level of disability based on their perceived pain. Pre Oswestry : 24/50 or 48% perceived disability. Post Oswestry : 23/50 46% perceived disability - Work History Work History: She is no longer working. Jorge Luis reports that has not worked since her 2016 spinal fusion surgery. 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 She reports relatively no standing and sitting 8-10 hours. She noted short walking breaks. She noted occasionally walked throughout the day. - Behavioral Behavioral: I worked hard all my life and would still be working if i haven't had so much back trouble.....Some days all I can do is lay on my back to help manage my pain. I hate taking pain medications, but I really have no choice. - ADLS ADLS: She lives in two story home with two steps to enter with her . She noted she has 16 steps to get to bedroom and sleeps in bedroom completing 16 steps daily. She noted that there are 11 steps to basement where laundry is located, and she is able to complete with completing carrying laundry upstairs. She reports still driving, helping care for grandkids (does not lift), and completing all self-care tasks independently. She cares for house cats, but cleans litter boxes. - Physical Examination Physical Examination: The purpose of this functional capacity evaluation (FCE) was to determine Elodia physical ability. This one-day FCE was performed in order to form setter helper in the determination of Elodia eligibility to get social security disability. Pain rated at start of session with use of functional pain scale: 6/10 pain. Aerobic limiting factor: 85% of max adjust HR= (220-age) *.85= 133 bpm. Calculated max weight: 60% of weight= 78 lbs. Resting Diagnostics: -Resting Blood Pressure: 142 / 93 mmHg. -Resting Heart Rate: 77 bpm. -Pulse Oximeter: 100 % ROM: Range of Motion: Lumbar Spine with goniometer: -Flexion: 0-15 , noted pain minimal and increased thoracic compensations noted with movements. Difficulty to get true reading lumbar spine. Completed inclinometer. - Extension: 0-12, noted pain minimal and increased thoracic compensations noted with movements. -Lateral Flexion: R 0-8 , L 0-12. Lumbar spine with use of inclinometer: -Flexion: L1 46 , L 5 40. O Total flexion: ?10 degrees: 6. - Extension: L1 0-10 , L 5 0-5. O Total extension: ?10 degrees: 5 degrees Strength: Strength: Strength measurements completed with use of manual muscle testing and short arm access of dynamometer. Results are as follows: Upper Body: Shoulder flexion: R 4-/5, L 4-/5. -Dynamometer: R 7.7 lbs , L 5.6 lbs. Shoulder extension: R 4-/5, L 4-/5. -Dynamometer: R 10 , L 7.7 lbs. Shoulder abduction: R 4-/5, L 4-/5. -Dynamometer: R 6.8 , L 5.9 lbs. Shoulder adduction: R 4-/5, L 4-/5. -Dynamometer: R 9.0 , L 10.2 lbs. Shoulder Internal Rotation: R 4-/5, L 4-/5. -Dynamometer: R 9.8 , L 7.7 lbs. Shoulder External Rotation: R 4-/5, L 4-/5. -Dynamometer: R 6.5 , L 7.9 lbs. Elbow flexion: -Dynamometer: R 8.8 , L 9.3 lbs. Elbow extension: R 4-/5, L 4-/5. -Dynamometer: R 7.7 , L 8.2. Lower Body: Hip flexion: R 3+/5, L 3/5. -Dynamometer: R 9.5 , L 10.1. Hip adduction: R 4-/5, L 4-/5. - Dynamometer: R 8.5 , L 7.7 lbs. Hip abduction: R 4-/5, L 4-/5. - Dynamometer: R 9.8 , L 8.1. Knee Flexion: R 4-/5, L 4-/5. -Dynamometer: R 11.7 , L 11 lbs. Knee extension: R 4-/5, L 4-/5. -Dynamometer: R 9.4 , L 11.2 lbs. Plantarflexion: R 4-/5, L 4-/5. -Dynamometer: R 14.1, L 10.9 lbs. Dorsiflexion: R 4-/5, L 4-/5. -Dynamometer: R 13.6 , L 8.8 lbs. Inconsistencies noted with manual muscle testing and breaks consistently with minimal pressure. Completed dynamometer testing to further determine strength of upper and lower extremities. Right Rn Clinical Appeals Strength Average: 33.66 Right Rn Clinical Appeals Strength Percentile: 50th Left Rn Clinical Appeals Strength Average: 30.33 Left Rn Clinical Appeals Strength Percentile: 44th Right Lateral Pinch Average: 6.66 Right Lateral Pinch Percentile: below 10th Left Lateral Pinch Average: 6.00 Left Lateral Pinch Percentile: below 10th Right Tripod Pinch Average: 3.66 Right Tripod Pinch Percentile: below 10th Left Tripod Pinch Average: 6.00 Left Tripod Pinch Percentile: above 10th but below 25th Comments: Consistency of Effort: Coefficient of variation above 15% is an inconsistent test. Consistency of effort was reliable for right mechanical car checker one at 10%, but inconsistent for left mechanical car checker at 16%. Pinch testing was reliable. Five Span Rn Clinical Appeals testing on Dynamometer: Position 1: R 15 , L 6. Position 2: R 15 , L 23. Position 3: R 17 , L 19. Position 4: R 10 ,L 7. Position 5: R 4 , L 8. Coefficient of variation: R: 43%, L 62%. Consistency of Effort: Coefficient of variation above 15% is an inconsistent test. Inconsistencies noted with mechanical car checker testing. Rapid Rn Clinical Appeals Exchange Testing: Right Average: 18, 5, 12. Left Average: 17, 7, 19. Coefficient of Variation: R 55%, L 45%. Consistency of Effort: Coefficient of variation above 15% is an inconsistent test. Inconsistencies noted with mechanical car checker testing. Sensation: Sensory Testing: Sensation testing completed on bilateral feet with monofilament touch test. A score of normal on touch test is 2.83 and within normal range with just some discrepancies for light touch is between 3.22-3.61. The higher the number in more complications related to patient?s ability to perceive touch related sensory stimuli. R foot: Great Toe 5.07 ,2nd 3.84 , 3rd 4.17 , 4th 4.56 , 5th 3.61. L foot: Great Toe 4.56 ,2nd 4.17 , 3rd 5.46 , 4th 4.74 , 5th 4.17. Red lined on few toes showing increased numbness and tingling in bilateral feet. Able to complete tailor sit to don and doff shoes and socks. Fine Motor: Fine motor: Completed the [place]urd[place] Pegboard test to further determine the patient?s ability to complete 20-3 step tasks, assess fine motor control and general dexterity needed to complete assembly like work. The results are as follows: Completed in standing position as perferred due to pain. Compensations of leaning of table noted. Right Hand: 10 pegs. -Percentile: below 1st. Left Hand: 8 pegs. -Percentile: below 1st. Both Hands: 5 pegs. -Percentile: below 1st. R+ L+ Both: 23 pegs. -percentile: below 1st. Assembly: 3 (12 totals pieces). -percentile: below 1st Balance: Heart rate: 80 bpm. Oximeter: 97%. Functional reach test is used to determine static balance in patients. A score of 15 is normal and less than 10 increases risk of falling. A score of 6 or less significantly increases a patient?s risk of falling. [place] 1: 8 inches. [place] 2: 7.5 inches. [place] 3: 7.0 inches. Average: 7.5 inches. Coefficient of Variation: 6%. Consistency of Effort: Coefficient of variation above 15% is an inconsistent test. Pt. performance consistent in reaching ability. Heart rate: 78 bpm. Pulse Oximeter: 95%. Blood Pressure: 150/92 mmHg. Functional Gait Assessment (FGA) is a dynamic balance test to determine vestibular functioning and general dynamic balance ability of patient 18-65+. This assessment can be used with clients of various backgrounds to determine functional dynamic balance needed to complete every day work related tasks. 1.Gait Level Surface:2. 2.Change in Gait Speed: 2. 3.Gait with horizontal head turns: 2. 4.Gait with vertical head turns:2. 5.Gait and pivot turn:2. - needed short walking brake to get and take gabapentin. 6.Step over obstacle:1. 7.Gait with narrow base of support: 0. 8.Gait with eyes closed: 1. 9.Ambulating Backwards: 1. Heart rate prior to steps: 77 bpm. Blood Pressure: 135/105 mmHg. 10.Steps (20 stairs): 2. Total Score: 15/maximum score 30. Heart rate post stairs: 89 bpms. Pain: 5/10. Jorge Luis scored about two standard deviations below the minimum score of age- related peers. This indicates some increased dynamic balance concerns. - Non Material Handling Activities Bending: Heart rate prior to beginning with use of pulse oximeter: 78 bpm. 3x, 10x, completed 6x with short standing break and then 4 x more repetitions with a total time to complete of 59 seconds. Noted after 6x I really don't want to do anymore, pain is getting bad. No mechanical changes noted but compensations of increased thoracic flexion observed. Encouraged to continue if tolerable. Able to continue. 10x faster in 35 seconds. Completed 50% of full bend. Observed with fair body mechanics. Compensations of thoracic spine noted. Heart rate posttest with use of pulse oximeter: 97 bpm. Nina Rate of Perceived Exertion (PRE) ratin. RPE calculation: 80 bpm. Perceived pain: 5.5/10 Squatting: Heart rate prior to beginning with use of pulse oximeter: 77 bpm. 3x, 10x in 33 seconds, and 10x faster in 16 seconds. Completed squatting 25 % of full squat with equal weightbearing to bilateral lower extremities. Increased pain and fear like behaviors observed as patient exhibits need for upper extremities to side as balance tactic. Body mechanics exhibited are fair. Heart rate posttest with use of pulse oximeter: 82. Nina Rate of Perceived Exertion (PRE) ratin. RPE calculation: 80 bpm. Perceived pain:5.5/10 Kneeling: Heart rate prior to beginning with use of pulse oximeter: 79. 3x but increased mechanical changes and deficits observed and task stopped due to safety concerns. Need for short 2 mins seated break post task. Completed with poor body mechanics. She completed slight right lateral leaning, increased need to use right upper extremity for external support to complete task. This task should be avoided due to mechanical deficits and compensations decreasing spinal alignment. Heart rate posttest with use of pulse oximeter: 92 bpm. Nina Rate of Perceived Exertion (PRE) ratin. RPE calculation: 80 bpm. Perceived pain:5.5/10 Reaching out/up: Heart rate prior to beginning with use of pulse oximeter: 89 bpm. From standing position: Reaching up: 3x, 10x in 12 seconds, and 10x faster in 7 seconds. From standing position: Reaching out: 3x, 10x in 16 seconds, and 10x faster in 8 seconds. Exhibits good body mechanics. Equal weightbearing observed. Slight compensations but spine remains in alignment. No mechanical changes observed throughout task. Heart rate posttest with use of pulse oximeter: 108. Nina Rate of Perceived Exertion (PRE) ratin. RPE calculation: 100 bpm. Perceived pain: 5.5/10 Walking: Heart rate prior to beginning with use of pulse oximeter: 76 bpm. Completes 100-yard walking test in 81 seconds. Completed walking 15 minutes with mild antalgic gait to left lower extremity with increased right lateral leaning of trunk. Patient reports increased symptoms of numbness in bilateral feet as task continued. Completed 1276 feet within 15 minutes of walking. She reports standing is more comfortable position than sitting but symptoms persist. Heart rate posttest with use of pulse oximeter: 109 bpm. Blood Pressure: 104/66 mmHg. Nina Rate of Perceived Exertion (PRE) ratin. RPE calculation: 70 bpm. Perceived pain: 5/10 Standing: Able to tolerate 24 minutes of consistent standing with both dynamic and static related tasks without compensations but mechanical deficits based on scoliosis noted. Compensations noted at 24 minutes and need short static standing break observed. Weight shifts noted to bilateral lower extremity noted at this time. She did tolerate with weight shift breaks for a total of 44 minutes of standing. She can complete standing frequently and reports it often helps manage lower extremity symptoms but increases symptoms with prolonged periods. . Nina Rate of Perceived Exertion (PRE) ratin. RPE calculation: 80 bpm. Perceived pain: between 5-5.5/10 Sitting: Able to tolerate about 10-15 minutes, after taking pain medications, prior to needing to change position to standing. When she did not have pain medications during completion of tasks she tolerated 7-10 mins prior to needing to stand. She shortly took pain medication after starting session. Nina Rate of Perceived Exertion (PRE) ratin. RPE calculation: 60 bpm. Perceived pain: 5.5/10 Climbing Stairs: Heart rate prior to beginning with use of pulse oximeter: 77 bpm. She is able to complete ascending and descending 20 stairs with use of 1x handrails and alternating foot pattern. Vision used to promote foot placement. Heart rate posttest with use of pulse oximeter: 89 bpm. Nina Rate of Perceived Exertion (PRE) ratin. RPE calculation: 80 bpm. Perceived pain: 5.5/10 - Dynamic Occasional Lifting Capacity Floor Lift: Heart rate prior to beginning with use of pulse oximeter: 78 bpm. Occasional Liftinx 5 lbs. Frequent lifting: negligible. Completes with poor body mechanics. Increased mechanical changes and deficits. Stopped after one trial with 5 lbs. Would not recommend completing lifting tasks regularly as increased compensations and mechanical changes are observed. Heart rate posttest with use of pulse oximeter: 88 bpm. Nina Rate of Perceived Exertion (PRE) ratin. RPE calculation: 130 bpm. Perceived pain: 6/10 Knee Lift: Heart rate prior to beginning with use of pulse oximeter: 78 bpm. Occasional Liftinx 10 lbs. Frequent lifting: negligible. Completes with fair body mechanics. Increased mechanical changes and deficits with weight above 10 lbs. Unable to completed additional weight without increased mechanical changes. Would not recommend completing lifting tasks from this position regularly as increased compensations and mechanical changes were observed. Heart rate posttest with use of pulse oximeter: 93 bpm. Nina Rate of Perceived Exertion (PRE) ratin. RPE calculation: 130 bpm. Perceived pain: 6/10 Waist Lift: Heart rate prior to beginning with use of pulse oximeter: 75 bpm. Max weight: 20 lbs. Occasional Liftinx 15 lbs. Frequent liftinx 7 lbs. Completes with fair body mechanics. Increased mechanical changes and deficits with weight above 10 lbs. Unable to completed additional weight without increased mechanical changes. Increased compensations and mechanical changes were observed as task progressed. Would not recommend completing frequent lifting tasks due to mechanical changes. Heart rate posttest with use of pulse oximeter: 80 bpm. Nina Rate of Perceived Exertion (PRE) ratin. RPE calculation: 130 bpm. Perceived pain: 6/10 Shoulder Lift: Heart rate prior to beginning with use of pulse oximeter: 81 bpm. Occasional Liftinx 8 lbs. Frequent liftinx 5lbs lbs. Completed with equal weightbearing to bilateral lower extremity. Completed increased mechanical deficits (more than baseline). Some increased compensations of thoracic and cervical flexion as well as increased lumbar extension. Some pain behaviors noted of grimaces. Heart rate posttest with use of pulse oximeter: 84. Nina Rate of Perceived Exertion (PRE) ratin. RPE calculation: 130 bpm. Perceived pain: 6/10 Overhead Lift: Heart rate prior to beginning with use of pulse oximeter: 91 bpm. Occasional Liftinx 5lbs lbs. Frequent lifting: negligible. Completed with mechanical compensations of cervical flexion, and lumbar extension. Mechanical changes occurred as client attempts to push load with chest to place. Based on performance she should not complete overhead lifts based on concerns of spinal alignment and increased compensations with minimum weight. Pain behaviors of grimace noted. Increase in heart rate observed. . Heart rate posttest with use of pulse oximeter: 95 bpm. Nina Rate of Perceived Exertion (PRE) ratin. RPE calculation: 130 bpm. Perceived pain:6/10 Carrying: Heart rate prior to beginning with use of pulse oximeter: 92 bpm. Occasional Liftinx 5 lbs. Frequent lifting: negligible. Increased compensations and mechanical deficits observed. Increased lateral leaning to right side shifting weight of load to right side observed. She exhibits increased antalgic gait with progression of task. Lumbar extension noted as well as cervical flexion decreasing spinal alignment. Able to complete 20 feet. Wou ld not recommended completing frequently. Heart rate posttest with use of pulse oximeter: 85 bpm. Nina Rate of Perceived Exertion (PRE) ratin. RPE calculation: 130 bpm. Perceived pain: 6/10 Comments: Ending diagnositics: Heart rate: 79 bpm. Blood Pressure: 121/89 bpm
--- NOTE | 2018-06-25 11:16 | HP.OTFCE.D ---
FCE D/C Summary - Discharge YENNY LYNN was seen for a one time visit for an FCE on 06/10/18 and is discharged.
== END 2018-06-23 19:00 | disposition home or self-care (01) ==
LOC: OT 11:40
PROVIDERS: Family Provider Family Medicine; PCP Family Medicine; Referring Provider Family Medicine; Visit Provider Family Medicine
DX: M54.5 Low back pain (principal); M48.00 Spinal stenosis, site unspecified; M46.1 Sacroiliitis, not elsewhere classified
CPT/HCPCS: 97750

== ENCOUNTER → 2018-07-22 12:13 | Outpatient (CLI) | payer BC, SELFPAY ==
[2018-05-01 14:50] VITALS: BMI 22.6
[2018-07-22 14:04] LABS: Absolute Lymphocyte Count 1.39 X10^3/ul (0.83-4.51); Basophil# 0.04 X10^3/uL; Basophil% 0.5 % (0-1); Eosinophil# 0.16 X10^3/uL; Eosinophils% 1.9 % (0-5); Hematocrit 41.2 % (37-47); Hemoglobin 12.9 g/dl (12.0-15.0); Lymphocyte # 1.39 X10^3/ul (4.0); Lymphocyte % 16.8 % (19-41); Mean Corp Hgb Conc 31.3 g/gl (32-36); Mean Corpuscular Hgb 31.8 pg (27.0-32.0); Mean Corpuscular Volume 101.5 fL (81-99); Mean Platelet Vol. 10.2 fl (6.2-12.0); Monocyte# 0.64 X10^3/uL; Monocyte% 7.7 % (0-10); Neutrophil # 6.01 X10^3/uL (2.7-7.7); Neutrophil % 72.9 % (47-70); Platelet Count 259 K/mm3 (150-450); RBC Distribution Width CV 13.6 % (11.6-14.6); RBC Distribution Width SD 49.3 fl (35.1-43.9); Red Blood Count 4.06 M/mm3 (4.2-5.4); White Blood Count 8.3 K/mm3 (4.4-11.0)
[2018-07-22 14:05] LABS: POSITIVE COUNT NO; POSITIVE DIFFERENTIAL NO; POSITIVE MORPHOLOGY NO
[2018-07-22 14:17] LABS: AST(SGOT) 27 U/L (15-37); Alanine Aminotransfer ALT/SGPT 34 U/L (13-56); Albumin, Serum 3.4 g/dL (3.2-5.0); Alkaline Phosphatase 45 U/L (45-117); Anion Gap 5 (5-15); BUN 22 mg/dL (7-18); BUN/Creat Ratio 30.3 RATIO (10-20); Calcium,Total 8.1 mg/dL (8.5-10.1); Chloride 109 mmol/L (98-107); Creatinine, Serum 0.72 mg/dL (0.55-1.02); EST Glomerular Filtration Rate 86 mL/min (>60); Est Glom Filt Rate - Afr Amer 104 mL/min (>60); Globulin 3.5 g/dL (2.2-4.2); Glucose 94 mg/dL (74-106); Potassium 4.1 mmol/L (3.5-5.1); Protein, Total 6.9 g/dL (6.4-8.2); Sodium Level 143 mmol/L (136-145)
[2018-07-23 09:24] LABS: Magnesium 2.6 mg/dL (1.6-2.6)
== END ==
PROVIDERS: Family Provider Family Medicine; PCP Family Medicine; Referring Provider Family Medicine; Visit Provider Family Medicine
DX: M25.473 Effusion, unspecified ankle (principal); R79.89 Other specified abnormal findings of blood chemistry
CPT/HCPCS: 36415; 80053; 83735; 85025

== ENCOUNTER → 2018-09-14 | Outpatient (CLI) | payer BC, SELFPAY ==
[2018-05-01 14:50] VITALS: BMI 22.6
[2018-09-14 17:57] LABS: Absolute Lymphocyte Count 2.45 X10^3/ul (0.83-4.51); Absolute Neutrophil Count 3.2 X10^3/uL (2.0-7.7); Basophil# 0.03 X10^3/uL; Basophil% 0.5 % (0-1); Eosinophil# 0.15 X10^3/uL; Eosinophils% 2.3 % (0-5); Hemoglobin 12.9 g/dl (12.0-15.0); Lymphocyte # 2.45 X10^3/ul (4.0); Lymphocyte % 37.8 % (19-41); Mean Corp Hgb Conc 32.3 g/gl (32-36); Mean Corpuscular Hgb 32.1 pg (27.0-32.0); Mean Corpuscular Volume 99.5 fL (81-99); Mean Platelet Vol. 10.5 fl (6.2-12.0); Monocyte# 0.62 X10^3/uL; Monocyte% 9.6 % (0-10); Neutrophil # 3.19 X10^3/uL (2.7-7.7); POSITIVE COUNT NO; POSITIVE DIFFERENTIAL NO; POSITIVE MORPHOLOGY NO; Platelet Count 335 K/mm3 (150-450); RBC Distribution Width SD 53.5 fl (35.1-43.9); Red Blood Count 4.02 M/mm3 (4.2-5.4); White Blood Count 6.5 K/mm3 (4.4-11.0)
[2018-09-14 18:04] LABS: ALB/GLOB Ratio 0.9 RATIO (0.9-2.4); AST(SGOT) 47 U/L (15-37); Alanine Aminotransfer ALT/SGPT 73 U/L (13-56); Albumin, Serum 3.4 g/dL (3.2-5.0); Alkaline Phosphatase 71 U/L (45-117); Anion Gap 7 (5-15); BUN 28 mg/dL (7-18); BUN/Creat Ratio 30.7 RATIO (10-20); CRP 3.02 mg/L (0.0-3.0); Calcium,Total 8.6 mg/dL (8.5-10.1); Chloride 104 mmol/L (98-107); Creatinine, Serum 0.91 mg/dL (0.55-1.02); EST Glomerular Filtration Rate 66 mL/min (>60); Est Glom Filt Rate - Afr Amer 80 mL/min (>60); Globulin 3.7 g/dL (2.2-4.2); Glucose 98 mg/dL (74-106); Magnesium 2.4 mg/dL (1.6-2.6); Potassium 3.7 mmol/L (3.5-5.1); Protein, Total 7.1 g/dL (6.4-8.2); Sodium Level 140 mmol/L (136-145)
== END | disposition home or self-care (01) ==
LOC: MTLAB 16:14
PROVIDERS: Family Provider Family Medicine; PCP Family Medicine; Referring Provider Family Medicine; Visit Provider Family Medicine
DX: M53.3 Sacrococcygeal disorders, not elsewhere classified (principal); K58.9 Irritable bowel syndrome, unspecified; G89.29 Other chronic pain
CPT/HCPCS: 36415; 80053; 83735; 85025; 86140

== ENCOUNTER → 2019-02-08 10:33 | Outpatient (CLI) | payer MEDICARE, OTHER, SELFPAY ==
[2018-09-23 13:57] VITALS: BMI 22.6
== END ==
PROVIDERS: Family Provider Family Medicine; PCP Family Medicine; Referring Provider Nurse Practitioner Acute Care; Visit Provider Nurse Practitioner Acute Care
DX: J47.9 Bronchiectasis, uncomplicated (principal)
CPT/HCPCS: 87070; 87205

== ENCOUNTER → 2019-02-10 10:05 | Outpatient (CLI) | payer MEDICARE, OTHER, SELFPAY ==
[2018-09-23 13:57] VITALS: BMI 22.6
--- NOTE | 2019-02-10 10:10 | RAD_ITS ---
EXAM DESCRIPTION: PA and lateral CHEST CLINICAL HISTORY: 64 years Female, asthma exacerbation COMPARISON: Previous chest 05/25/2017 FINDINGS: The thorax is intact. The heart and mediastinum appear to be within normal limits. The lungs appear to be well areated without evidence of pneumonic consolidation or pleural effusion. RAD/Chest PA and Lateral IMPRESSION: Normal PA and lateral chest. Electronically Signed: Joseph Corrie, at 14:04 EDT Tel , Service support ,
[2019-02-10 12:32] LABS: Absolute Lymphocyte Count 4.47 X10^3/uL (0.83-4.51); Absolute Neutrophil Count 5.9 X10^3/uL (2.0-7.7); Basophil# 0.09 X10^3/uL; Basophil% 0.8 % (0-1); Eosinophil# 0.12 X10^3/uL; Hematocrit 42.5 % (37-47); Hemoglobin 13.5 g/dL (12.0-15.0); Lymphocyte # 4.47 X10^3/ul (4.0); Lymphocyte % 37.9 % (19-41); Mean Corp Hgb Conc 31.8 g/dL (32-36); Mean Corpuscular Hgb 31.5 pg (27.0-32.0); Mean Corpuscular Volume 99.3 fL (81-99); Mean Platelet Vol. 9.5 fl (6.2-12.0); Monocyte# 0.93 X10^3/uL; Monocyte% 7.9 % (0-10); NRBC Flagged by Analyzer 0 % (0-5); Neutrophil # 5.93 X10^3/uL (2.7-7.7); Neutrophil % 50.2 % (47-70); Platelet Count 312 K/mm3 (150-450); RBC Distribution Width CV 14.5 % (11.6-14.6); RBC Distribution Width SD 53.2 fl (35.1-43.9); Red Blood Count 4.28 M/mm3 (4.2-5.4); White Blood Count 11.8 K/mm3 (4.4-11.0)
[2019-02-10 13:01] LABS: ALB/GLOB Ratio 0.8 RATIO (0.9-2.4); AST(SGOT) 16 U/L (15-37); Alanine Aminotransfer ALT/SGPT 52 U/L (13-56); Albumin, Serum 3.4 g/dL (3.2-5.0); Alkaline Phosphatase 74 U/L (45-117); Anion Gap 5 (5-15); BUN 21 mg/dL (7-18); BUN/Creat Ratio 22.5 RATIO (10-20); Calcium,Total 9.1 mg/dL (8.5-10.1); Chloride 102 mmol/L (98-107); Creatinine, Serum 0.94 mg/dL (0.55-1.02); EST Glomerular Filtration Rate 64 mL/min (>60); Est Glom Filt Rate - Afr Amer 77 mL/min (>60); Glucose 96 mg/dL (74-106); Potassium 4.1 mmol/L (3.5-5.1); Protein, Total 7.4 g/dL (6.4-8.2); Sodium Level 137 mmol/L (136-145); Thyroid Stim Hormone (TSH) 1.67 uIU/mL (0.358-3.74)
== END ==
PROVIDERS: Family Provider Family Medicine; PCP Family Medicine; Referring Provider Family Medicine; Visit Provider Family Medicine
DX: J45.901 Unspecified asthma with (acute) exacerbation (principal); R23.9 Unspecified skin changes
CPT/HCPCS: 36415; 71046; 80053; 84443; 85025

== ENCOUNTER 2019-02-15 12:53 | Emergency (ER) | payer MEDICARE, OTHER, SELFPAY ==
[2018-09-23 13:57] VITALS: BMI 22.6
[2019-02-15 12:55] VITALS: BP 134/89; PULSE 96; RESP 18; TEMP 36.8; O2SAT 96; BMI 23.1
--- NOTE | 2019-02-15 13:30 | RAD_ITS ---
STUDY: X-RAY CHEST REASON FOR EXAM: Female, 64 years old. Low-grade fever and cough. TECHNIQUE: PA and lateral views of the chest. COMPARISON: Comparison is made with prior examination dated February 10, 2019. FINDINGS: EKG electrodes are seen. Stable mild elevation of the right hemidiaphragm. Stable mild degree of increased markings at the left lung base suggestive of left basilar atelectasis and/or scarring. Stable apical scarring bilaterally. Scattered calcified granulomas. There is no demonstrated pleural abnormality. Normal size heart. Normal mediastinum and stanislaw. Normal visualized pulmonary arteries. There is atherosclerotic calcification of the aortic arch with tortuosity. There are diffuse degenerative changes of the visualized thoracic spine. Mild dextroscoliosis. Normal visualized ribs, clavicles, and shoulders. There is no demonstrated abnormality of the visualized soft tissue structures of the upper abdomen. RAD/Chest PA and Lateral IMPRESSION: Mild degree of increased markings at the left lung base suggestive of left basilar atelectasis and/or scarring. This is unchanged. Electronically Signed: Aidan Viramontes, at 14:38 EDT , Service support ,
--- NOTE | 2019-02-15 13:41 | ED.DCSUM_ITS ---
History of Present Illness Chief Complaint: Cold Sx Detail of Chief Complaint: Productive cough, fever, chills Informant: Patient Onset: Weeks Context: Gradual Onset Timing: Continuous Quality: Productive cough, wheezing, dyspnea on exertion, fever with chills Location: Auditory Current Severity: Mild Maximum Severity: Moderate Worsened by: Nothing Relieved by: Nothing Associated Symptoms: Previously documented Narrative: Patient is 64-year-old woman who is a former smoker with history of asthma. She has been seen by Dr. Terrazas. She was initially treated with prednisone and levofloxacin 500 mg x 5 days. Since she did not improve and continue to have fever and chills she was prescribed 750 mg of levofloxacin. She states she still taking prednisone. She denies history of COPD. She reports temperature to a T-max of 100.9 ?F. She had Reiger's yesterday. She denies headache. Denies rhinorrhea, postnasal drainage or congestion. Denies sore throat. The cough is productive of yellow to green sputum. She denies pleuritic chest pain. There is no history of PE or DVT. She denies GI symptoms. She denies rash. Denies myalgias arthralgias. Did have an x-ray performed February 10 which was read as negative. Prior similar symptoms: Yes Recent Illness/Hospitalization: Yes - Past Medical History (1) Bronchiectasis Status: Acute (2) Asthma Status: Chronic (3) COPD (chronic obstructive pulmonary disease) Status: Chronic (4) Lumbar disc disease Status: Chronic (5) Nephrolithiasis Status: Chronic (6) Neuropathic pain Status: Chronic (7) Scoliosis of thoracolumbar spine Status: Chronic Past Medical History - Allergies and Home Meds Allergies/Adverse Reactions: Allergies bacitracin Adverse Reaction (Verified 02/15/19 12:55) Itching chlorpheniramine [From Dristan Cold] Adverse Reaction (Verified 02/15/19 12:55) Other loratadine [From Claritin-D] Adverse Reaction (Verified 02/15/19 12:55) Other morphine Adverse Reaction (Verified 02/15/19 12:55) Nausea phenylephrine [From Dristan Cold] Adverse Reaction (Verified 02/15/19 12:55) Other pseudoephedrine [From Claritin-D] Adverse Reaction (Verified 02/15/19 12:55) Other tramadol Adverse Reaction (Verified 02/15/19 12:55) Vomiting novacaine Adverse Reaction (Uncoded 02/15/19 12:55) Unknown Primary Care Physician: Julian Asher MD [Primary Care Provider] - Prior records reviewed: Yes Surgical History: noncontributory, - Lives: Spouse/ Significant Other Smoking Status: Former smoker Alcohol: Rare Drugs: None - Family History Maternal Family History: Family History (Last Reviewed 09/23/18 @ 14:39 by MILLA Byrd) Mother Cancer Sister Cancer Asthma Grandfather CAD (coronary artery disease) Grandmother Arthritis Father Hypertension Family History: Reports: No pertinent history Paternal Family History: Family History (Last Reviewed 09/23/18 @ 14:39 by MILLA Byrd) Mother Cancer Sister Cancer Asthma Grandfather CAD (coronary artery disease) Grandmother Arthritis Father Hypertension Family History: Reports: No pertinent history Review of Systems General: Reports: Chills, Fever, Malaise, Sweats. Denies: Subjective, Weight loss Eyes: Denies: Visual changes - bilaterally, Blurred Vision - bilaterally ENT: Denies: Bilateral ear pain, Rhinorrhea, Sore throat Cardiovascular: Denies: Chest pain, Palpitations Respiratory: Reports: Dyspnea, Cough, Sputum, Dyspnea on exertion. Denies: Orthopnea, Paroxysmal nocturnal dyspnea Gastrointestinal: Denies: Abdominal pain, Nausea, Vomiting, Diarrhea, Melena, Hematochezia Genitourinary: Denies: Dysuria, Hematuria, Frequency Musculoskeletal: Denies: Myalgias, Arthralgias, Neck pain, Back pain, Swelling, Extremity Pain, -, - Neurological: Denies: Headache, Weakness, Numbness Endocrine: Denies: Polyuria, Polydipsia Hematologic: Denies: Easy bruising, Easy bleeding Physical Exam Vital Signs/Narrative: Vital Signs Temp Pulse Resp BP Pulse Ox 02/15/19 12:55 98.3 F 96 18 134/89 H 96 Inital Vital Signs reviewed: Yes General: Well nourished, Well developed, No Acute Distress Head: Normocephalic, Atraumatic Eyes: Perrl, EOMI ENT: Moist mucous membranes, No rhinorrhea Neck: Supple, Nontender Cardiovascular: Regular rate, Regular rhythm, No murmurs Respiratory: No distress, Chest nontender, Wheezing - With increased expiratory phase and decreased air movement bilaterally. Negative for: CTA bilaterally Abdomen: Soft, Nontender, Nondistended, Normal bowel sounds Back: Nontender, Normal Inspection Extremities: Nontender, No edema, - - There is no asymmetry, swelling, discoloration, leg vein distention, palpable cords or tenderness along the distribution of the deep venous system. Skin: Normal color, No rash. Negative for: Cyanosis, Diaphoresis, Jaundice Neurological: Alert, Oriented x3, Cranial nerves II-XII grossly intact, Normal Strength, Normal Sensation Psychological: Normal affect, Normal Mood Diagnostic/Tx/Re-eval Chest X-Ray - ED: 2 View, Read by ED Physician, Normal, Heart, Mediastinum, No Acute Disease, Chronic Changes, - - Chest x-ray is unchanged from February 10. Impressions Chest X-Ray 02/15/19 13:30 IMPRESSION: Mild degree of increased markings at the left lung base suggestive of left basilar atelectasis and/or scarring. This is unchanged. Electronically Signed: Aidan Wander, at 14:38 EDT , Service support , 02/15/19 13:30 Chest PA and Lateral [RAD] Stat Laboratory Results 02/15/19 02/15/19 14:04 14:04 WBC 10.9 RBC 3.97 L Hgb 12.8 Hct 38.2 MCV 96.2 MCH 32.2 H MCHC 33.5 RDW Std Deviation 52.0 H RDW Coeff of Tarun 14.7 H Plt Count 323 MPV 9.1 Immature Gran % (Auto) 1.000 H Neut % (Auto) 83.3 H Lymph % (Auto) 10.6 L Motley % (Auto) 4.9 Eos % (Auto) 0.0 Baso % (Auto) 0.2 Absolute Neuts (auto) 9.1 H Absolute Lymphs (auto) 1.16 Nucleated RBC % 0 Sodium 136 Potassium 4.3 Chloride 104 Carbon Dioxide 26.0 Anion Gap 6 BUN 24 H Creatinine 0.81 Estim Creat Clear Calc 59.79 Est GFR (MDRD) Af Amer 92 Est GFR (MDRD) Non-Af 76 BUN/Creatinine Ratio 29.8 H Glucose 95 Calcium 9.2 White count is normal. Chest x-ray is unchanged. Will discuss her case with Dr. 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 - Medical Decision Making Patient has persistent cough and fever chest x-ray was obtained. Blood work was obtained to risk stratify patient and she was treated with DuoNeb and albuterol since she has history of COPD and not just asthma. Case was discussed with Dr. Terrazas. He recommended tapering dose of prednisone. He would like Mrs. Mora to call the office to be seen later this week. ED Disposition - Plan for ED Patient: Disposition: Home or Assisted Living Diagnosis: Purulent bronchitis, Acute bronchospasm, History of fever Instructions: BRONCHITIS with Wheezing (Adult) Prescriptions: Prednisone 10 mg PO UD #33 tab Prescription Printed Referrals: Julian Asher MD [Primary Care Provider] - Additional Instructions: Call Dr. Terrazas's office to be seen later this week.
[2019-02-15 13:50] VITALS: PULSE 86; RESP 20
[2019-02-15] MEDS: Ipratropium/Albuterol Sulfate 3 ML AMPUL.NEB INHALATION (13:55)
[2019-02-15 14:10] VITALS: BP 121/75; BP 129/58; PULSE 85; PULSE 90; RESP 20; TEMP 37.1; O2SAT 97; O2SAT 98
[2019-02-15 14:13] LABS: Absolute Lymphocyte Count 1.16 X10^3/uL (0.83-4.51); Absolute Neutrophil Count 9.1 X10^3/uL (2.0-7.7); Basophil# 0.02 X10^3/uL; Basophil% 0.2 % (0-1); Hematocrit 38.2 % (37-47); Hemoglobin 12.8 g/dL (12.0-15.0); Lymphocyte # 1.16 X10^3/ul (4.0); Lymphocyte % 10.6 % (19-41); Mean Corp Hgb Conc 33.5 g/dL (32-36); Mean Corpuscular Hgb 32.2 pg (27.0-32.0); Mean Corpuscular Volume 96.2 fL (81-99); Mean Platelet Vol. 9.1 fl (6.2-12.0); Monocyte# 0.53 X10^3/uL; Monocyte% 4.9 % (0-10); NRBC Flagged by Analyzer 0 % (0-5); Neutrophil # 9.08 X10^3/uL (2.7-7.7); Neutrophil % 83.3 % (47-70); Platelet Count 323 K/mm3 (150-450); RBC Distribution Width CV 14.7 % (11.6-14.6); Red Blood Count 3.97 M/mm3 (4.2-5.4); White Blood Count 10.9 K/mm3 (4.4-11.0)
[2019-02-15 14:25] LABS: Anion Gap 6 (5-15); BUN 24 mg/dL (7-18); BUN/Creat Ratio 29.8 RATIO (10-20); Calcium,Total 9.2 mg/dL (8.5-10.1); Chloride 104 mmol/L (98-107); Creatinine, Serum 0.81 mg/dL (0.55-1.02); EST Glomerular Filtration Rate 76 mL/min (>60); Est Glom Filt Rate - Afr Amer 92 mL/min (>60); Estimated Creatinine Clearance 59.79 ml/min; Glucose 95 mg/dL (74-106); Potassium 4.3 mmol/L (3.5-5.1); Sodium Level 136 mmol/L (136-145)
[2019-02-15 15:42] VITALS: BP 121/73; PULSE 100; RESP 18; O2SAT 94
--- NOTE | 2019-02-15 15:48 | ED.DCSUM_ITS ---
- ER Visit Summary Date of Service: 02/15/19 Chief Complaint: [] History of Present Illness: The patient is a 64 F [] Physical Examination: [] Test Results: [] Emergency Department Course and Treatment: [] Treatment Plan: [] Disposition: [] Impression: [] This note was generated with [employer] dictation software. It may contain incorrect words, spelling, and punctuation that were not noted in review of the chart prior to signing ED Disposition - Plan for ED Patient: Disposition: Home or Assisted Living Diagnosis: Purulent bronchitis, Acute bronchospasm, History of fever Instructions: BRONCHITIS with Wheezing (Adult) Prescriptions: Lorazepam [Ativan] 0.5 mg PO TID PRN PRN 3 Days #10 tablet PRN Reason: Anxiousness Transmission Status: Sent to [id number] Prednisone 10 mg PO UD #33 tab Prescription Printed Referrals: Julian Asher MD [Primary Care Provider] - Additional Instructions: Call Dr. Terrazas's office to be seen later this week.
== END 2019-02-15 15:52 | disposition home or self-care (01) ==
PROVIDERS: Emergency Provider Emergency Medicine; Family Provider Family Medicine; PCP Family Medicine
DX: J41.1 Mucopurulent chronic bronchitis (principal); J44.9 Chronic obstructive pulmonary disease, unspecified; M51.9 Unspecified thoracic, thoracolumbar and lumbosacral intervertebral disc disorder; M41.9 Scoliosis, unspecified; Z87.442 Personal history of urinary calculi; Z79.82 Long term (current) use of aspirin; Z79.899 Other long term (current) drug therapy; Z87.891 Personal history of nicotine dependence
CPT/HCPCS: 71046; 80048; 85025; 94640; 99284; A4216

== ENCOUNTER → 2019-03-09 10:28 | Outpatient (CLI) | payer MEDICARE, OTHER, SELFPAY ==
[2019-03-09 05:53] VITALS: BMI 23.6
[2019-03-09 12:00] LABS: Absolute Lymphocyte Count 2.34 X10^3/uL (0.83-4.51); Absolute Neutrophil Count 4.2 X10^3/uL (2.0-7.7); Basophil# 0.08 X10^3/uL; Basophil% 1.1 % (0-1); Eosinophil# 0.06 X10^3/uL; Eosinophils% 0.8 % (0-5); Hematocrit 43.8 % (37-47); Hemoglobin 14.1 g/dL (12.0-15.0); Lymphocyte # 2.34 X10^3/ul (4.0); Lymphocyte % 31.5 % (19-41); Mean Corp Hgb Conc 32.2 g/dL (32-36); Mean Corpuscular Hgb 32.6 pg (27.0-32.0); Mean Corpuscular Volume 101.4 fL (81-99); Mean Platelet Vol. 9.8 fl (6.2-12.0); Monocyte% 9.4 % (0-10); NRBC Flagged by Analyzer 0 % (0-5); Neutrophil # 4.16 X10^3/uL (2.7-7.7); Platelet Count 286 K/mm3 (150-450); RBC Distribution Width CV 14.7 % (11.6-14.6); Red Blood Count 4.32 M/mm3 (4.2-5.4); White Blood Count 7.4 K/mm3 (4.4-11.0)
[2019-03-12 16:21] LABS: Immunoglobulin E 9 IU/mL (6-495)
== END ==
PROVIDERS: Family Provider Family Medicine; PCP Family Medicine; Referring Provider Internal Medicine Critical Care Medicine; Visit Provider Internal Medicine Critical Care Medicine
DX: J45.909 Unspecified asthma, uncomplicated (principal)
CPT/HCPCS: 36415; 82785; 85025

== ENCOUNTER → 2019-03-23 14:48 | Outpatient (CLI) | payer MEDICARE, OTHER, SELFPAY ==
[2019-03-09 05:53] VITALS: BMI 23.6
--- NOTE | 2019-03-23 14:50 | CT_ITS ---
HISTORY: ASTHMA, SOB X 2 MONTHS. ? bronchectasis TECHNIQUE: Helically acquired images of the chest were obtained without IV contrast. Number of images including paperwork: [phone]. A radiation dose optimization technique was used for this scan. COMPARISON: 05/04/2018 FINDINGS: VASCULATURE: Vascular tortuosity. Mild atherosclerotic calcification. HEART/PERICARDIUM: Normal heart size. Trace pericardial fluid versus thickening. Coronary calcification. MEDIASTINUM: Unremarkable. ADENOPATHY: No pathologic appearing adenopathy. THYROID: Unremarkable visualized portions. LUNG PARENCHYMA: No consolidation or mass. Peribronchial thickening. Cylindrical bronchiectasis, mild to moderate. Mild paraseptal emphysema at the apices. Apical scarring. Minimal micronodular and groundglass opacities. Small nodular density along the right minor fissure is unchanged compared to 2014 and compatible with a small interpulmonary lymph node. PLEURAL SPACES: Unremarkable. UPPER ABDOMEN: Unremarkable. OSSEOUS AND SOFT TISSUE STRUCTURES: No acute skeletal findings. Degenerative changes. DEVICES: None. CT/Chest without Contrast IMPRESSION: 1. Peribronchial thickening with minimal scattered micronodular and groundglass opacities were likely infectious or inflammatory in nature. 2. Mild bronchiectasis. 3. Additional findings above. Individualized dose optimization techniques were used for this CT. at 0455 Reported and signed by: María Villasenor MD Electronically Signed: María Villasenor MD at 4:55 EST Tel , Service support ,
== END ==
PROVIDERS: Family Provider Family Medicine; PCP Family Medicine; Referring Provider Internal Medicine Critical Care Medicine; Visit Provider Internal Medicine Critical Care Medicine
DX: J47.9 Bronchiectasis, uncomplicated (principal)
CPT/HCPCS: 71250

== ENCOUNTER → 2019-03-30 13:59 | Outpatient (CLI) | payer MEDICARE, OTHER, SELFPAY ==
[2019-03-30 10:54] VITALS: BMI 23.6
== END ==
PROVIDERS: Family Provider Family Medicine; PCP Family Medicine; Referring Provider Internal Medicine Critical Care Medicine; Visit Provider Internal Medicine Critical Care Medicine
DX: J47.9 Bronchiectasis, uncomplicated (principal)
CPT/HCPCS: 87070; 87205

== ENCOUNTER 2019-04-06 06:46 | Inpatient (IN) | payer MEDICARE, OTHER, SELFPAY ==
[2019-03-30 10:54] VITALS: BMI 23.6
[2019-04-06] VITALS (10 sets, daily range): BP systolic 111–142; BP diastolic 44–76; PULSE 77–98; RESP 12–20; TEMP 36.3–37.1; O2SAT 88–97; BMI 24.0
--- NOTE | 2019-04-06 06:52 | EKG12_ITS ---
Test Reason : SOB Blood Pressure : / mmHG Vent. Rate : 082 BPM Atrial Rate : 082 BPM P-R Int : 124 ms QRS Dur : 078 ms QT Int : 398 ms P-R-T Axes : -27 -16 012 degrees QTc Int : 464 ms Normal sinus rhythm Normal ECG Confirmed by RAVI LEES, CARLINE ([id number]), commissioning editor ZAK CARNEY ([id number]) on 04/07/2019 1:03:59 PM Referred By: Ish Villa Confirmed By:CARLINE RODRIGUES MD
--- NOTE | 2019-04-06 06:53 | RAD_ITS ---
STUDY: X-RAY CHEST REASON FOR EXAM: Female, 64 years old. Shortness of breath, cough TECHNIQUE: PA and lateral chest COMPARISON: 02/15/2019 FINDINGS: There are mild bibasilar pulmonary infiltrates and subsegmental atelectasis. There is stable mild compression deformities upper to mid thoracic spine with mild kyphosis generalized osteopenia. There is no demonstrated pleural abnormality. There is stable scattered bronchiectasis. Normal size heart. Normal mediastinum and stanislaw. Normal visualized pulmonary arteries. Normal visualized aortic arch and descending thoracic aorta. Stable S-shaped thoracolumbar spinal scoliosis. There are fixation rods and screws in the upper lumbar spine seen on the very inferior edge of the field of view. There is no demonstrated abnormality of the visualized soft tissue structures of the upper abdomen. RAD/Chest PA and Lateral IMPRESSION: New mild bibasilar pulmonary infiltrates and subsegmental atelectasis likely pneumonia Stable mild compression deformities of upper to mid thoracic spine with kyphosis and generalized osteopenia Stable S-shaped thoracolumbar spinal scoliosis, fixation rods and screws within the upper lumbar spine seen on the very inferior field of view Electronically Signed: Luis Carlos Griffith, at 7:57 EST Tel , Service support ,
[2019-04-06 07:00] LABS: Absolute Lymphocyte Count 2.15 X10^3/uL (0.83-4.51); Absolute Neutrophil Count 11.5 X10^3/uL (2.0-7.7); Basophil# 0.08 X10^3/uL; Basophil% 0.5 % (0-1); Eosinophil# 0.26 X10^3/uL; Eosinophils% 1.7 % (0-5); Hematocrit 38.1 % (37-47); Hemoglobin 12.5 g/dL (12.0-15.0); Lymphocyte # 2.15 X10^3/ul (4.0); Mean Corp Hgb Conc 32.8 g/dL (32-36); Mean Corpuscular Hgb 32.3 pg (27.0-32.0); Mean Corpuscular Volume 98.4 fL (81-99); Mean Platelet Vol. 9.7 fl (6.2-12.0); Monocyte# 1.18 X10^3/uL; Monocyte% 7.7 % (0-10); NRBC Flagged by Analyzer 0 % (0-5); Neutrophil # 11.54 X10^3/uL (2.7-7.7); Neutrophil % 75.2 % (47-70); Platelet Count 311 K/mm3 (150-450); RBC Distribution Width CV 13.3 % (11.6-14.6); RBC Distribution Width SD 48.2 fl (35.1-43.9); Red Blood Count 3.87 M/mm3 (4.2-5.4); White Blood Count 15.4 K/mm3 (4.4-11.0)
--- NOTE | 2019-04-06 07:12 | ED.DCSUM_ITS ---
- ER Visit Summary Date of Service: 04/06/19 Chief Complaint: Chronic cough and shortness of breath History of Present Illness: The patient is a 64 F history of asthma, bronchiectasis and back pain. She sees the ventilating equipment installer Dr. Rubens Terrazas. Patient's been worse the last 3 months. She is been on 2 different antibiotics and prednisone without relief. She uses inhaler but does not use a nebulizer at home. States that she had a fever of 100 this morning. Typically she runs 97. States her normal pulse ox when she is in a good state out is 94-95 % and she is typically been running 91-92 %. She is not on oxygen. Her chest pain is only with coughing. She is never had a DVT or PE. Physical Examination: Older female no acute distress vital signs are stable afebrile. Currently 98 temperature. Pulse ox 91% on 1 L. She is sitting upright in bed. is at bedside. H EENT exam unremarkable. Neck nontender no JVD. No lymphadenopathy. Lungs coarse breath sounds. No rales or rhonchi. Heart regular rhythm no murmur rate about 90. Abdomen soft and nontender. Patient is moving all 4 extremities calves are nontender without edema or cords. Neurologically she is awake and alert. Test Results: Her EKG shows a sinus rhythm rate of 82 with no acute signs of [place] or ischemia and unchanged from an EKG from 1 year ago. CBC shows a white count of 15,400 hemoglobin of 12 and no bands. Chemistries unremarkable BUN 28 creatinine 0.8. Gap is 7. Liver enzymes were normal it was put in as a CMP. Chest x-ray AP and lateral views shows a definite left lower lobe pneumonia and I suspect an early right lower lobe pneumonia for bilateral lower lobe community-acquired pneumonia. Emergency Department Course and Treatment: Patient will be treated with DuoNeb and albuterol aerosols. She does not want to be on steroids. X-rays and labs to be obtained. Treatment Plan: P exam patient is doing well. I discussed with her and her all of her test results we went over her x-ray. I think due to her hypoxia, white count, age and history of bronchiectasis she should be admitted. Especially with it being potentially by lobar pneumonia. Blood cultures and lactic acid to be obtained. I have both the hospitalist and her ventilating equipment installer on page. And she will be started on IV vancomycin and Zosyn after I spoke with her ventilating equipment installer.. Disposition: Admission Impression: Acute dyspnea secondary to exacerbation of asthma Acute bilateral lower lobe pneumonia Hypoxia History of asthma and bronchiectasis This note was generated with [employer] dictation software. It may contain incorrect words, spelling, and punctuation that were not noted in review of the chart prior to signing ED Disposition - Plan for ED Patient: Referrals: Julian Asher MD [Primary Care Provider] -
[2019-04-06 07:15] LABS: ALB/GLOB Ratio 0.6 RATIO (0.9-2.4); AST(SGOT) 15 U/L (15-37); Alanine Aminotransfer ALT/SGPT 22 U/L (13-56); Albumin, Serum 3.1 g/dL (3.2-5.0); Alkaline Phosphatase 106 U/L (45-117); Anion Gap 7 (5-15); BUN 28 mg/dL (7-18); BUN/Creat Ratio 33.7 RATIO (10-20); Calcium,Total 8.5 mg/dL (8.5-10.1); Chloride 105 mmol/L (98-107); Creatinine, Serum 0.83 mg/dL (0.55-1.02); EST Glomerular Filtration Rate 73 mL/min (>60); Est Glom Filt Rate - Afr Amer 88 mL/min (>60); Estimated Creatinine Clearance 58.35 ml/min; Globulin 4.8 g/dL (2.2-4.2); Glucose 109 mg/dL (74-106); Potassium 4.2 mmol/L (3.5-5.1); Protein, Total 7.9 g/dL (6.4-8.2); Sodium Level 137 mmol/L (136-145)
[2019-04-06] MEDS: Ipratropium/Albuterol Sulfate 3 ML AMPUL.NEB INHALATION ×4 (07:36→18:58)
[2019-04-06] MEDS: Albuterol 2.5 MG/3 ML VIAL.NEB. INHALATION (07:42)
[2019-04-06] MEDS: 0.9% Normal Saline 1,000 ML 999 ML IV (08:27)
--- NOTE | 2019-04-06 08:37 | PCM.HP.STD ---
Problem List (1) Rectal bleeding Status: Inactive (2) Bronchiectasis Status: Acute Qualifiers: Bronchiectasis type: with acute exacerbation Qualified Code(s): J47.1 - Bronchiectasis with (acute) exacerbation (3) root canal Status: Resolved (4) History of back surgery Status: Resolved Comment: L4-S1 fusion in January 2017 (5) H/O foot surgery Status: Resolved (6) Disease of tonsils and adenoids Status: Resolved (7) Scoliosis of thoracolumbar spine Status: Chronic (8) Lung nodule Status: Chronic (9) Asthma Status: Chronic Qualifiers: Asthma severity: severe Asthma persistence: persistent Asthma complication type: with acute exacerbation Qualified Code(s): J45.51 - Severe persistent asthma with (acute) exacerbation (10) Lumbar disc disease Status: Chronic (11) Nephrolithiasis Status: Chronic (12) Herpes simplex Status: Acute (13) Muscle spasm Status: Chronic (14) Rhinitis Status: Chronic (15) Neuropathic pain Status: Chronic (16) Conjunctivitis Status: Acute (17) COPD (chronic obstructive pulmonary disease) Status: Chronic Qualifiers: COPD type: COPD with acute lower respiratory infection Qualified Code(s): J44.0 - Chronic obstructive pulmonary disease with (acute) lower respiratory infection; J44.0 - Chronic obstructive pulmonary disease with acute lower respiratory infection; J44.0 - Chronic obstructive pulmonary disease with acute lower respiratory infection; J44.0 - Chronic obstructive pulmonary disease with acute lower respiratory infection History of Present Illness Date of Admission: 04/06/19 Chief Complaint: Cough, shortness of breath and weakness for 2 months The patient is a 64 year old F with history of bronchiectasis with multiple ER visit, last one in February 2019 and on multiple antibiotics came to ED with progressive worsening of shortness of breath, productive cough and low-grade fevers since February 2019. Patient finished Levaquin and 6 weeks of tapering dose of prednisone in recent past since February 2019. Patient still gets easily short of breath on mild exertion and even at rest along with yellowish-green sputum. Patient repositioning pressure at home and it was about 100 ?F. She complained of left lower back pain around the 11th and 12th rib on deep cough. [] In ED,No fever was found. Heart rate 77. Pulse ox 96% on 2 L of oxygen and respiratory rate 20/min. See had CT chest in March 2019 which reported peribronchial thickening with minimal scattered micronodular and groundglass opacities with mild cylindrical bronchiectasis changes. Mild paraseptal emphysema at the apices. Apical scarring. Chest x-ray done in ER shows mild bibasilar pulmonary infiltrates and subsegmental atelectasis. Past Medical History Past Medical History (Chronic Problems): Chronic Problems (Last Reviewed 03/30/19 @ 10:46 by Anahi Roberts) Scoliosis of thoracolumbar spine (Chronic) Lung nodule (Chronic) Asthma (Chronic) Lumbar disc disease (Chronic) Nephrolithiasis (Chronic) Muscle spasm (Chronic) Rhinitis (Chronic) Neuropathic pain (Chronic) COPD (chronic obstructive pulmonary disease) (Chronic) Medical History: Medical History (Last Reviewed 03/30/19 @ 10:46 by Anahi Roberts) Rectal bleeding (Inactive) K62.5 root canal (Resolved) Disease of tonsils and adenoids (Resolved) J35.9 Scoliosis of thoracolumbar spine (Chronic) M41.9 Lung nodule (Chronic) R91.1 Asthma (Chronic) J45.909 Lumbar disc disease (Chronic) M51.9 Nephrolithiasis (Chronic) Herpes simplex (Acute) B00.9 Muscle spasm (Chronic) M62.838 Rhinitis (Chronic) J31.0 Neuropathic pain (Chronic) Conjunctivitis (Acute) H10.9 COPD (chronic obstructive pulmonary disease) (Chronic) J44.9 Acid reflux K21.9 Arthritis M19.90 Asthma J45.909 Back pain M54.9 Blood in stool K92.1 Constipation K59.00 Allergies bacitracin Adverse Reaction (Verified 04/06/19 06:51) Itching chlorpheniramine [From Dristan Cold] Adverse Reaction (Verified 04/06/19 06:51) Other loratadine [From Claritin-D] Adverse Reaction (Verified 04/06/19 06:51) Other morphine Adverse Reaction (Verified 04/06/19 06:51) Nausea phenylephrine [From Dristan Cold] Adverse Reaction (Verified 04/06/19 06:51) Other pseudoephedrine [From Claritin-D] Adverse Reaction (Verified 04/06/19 06:51) Other tramadol Adverse Reaction (Verified 04/06/19 06:51) Vomiting novacaine Adverse Reaction (Uncoded 04/06/19 06:51) Unknown Home Medications: Ambulatory Orders Medication Instructions Recorded Hydroxyzine HCl 25 mg PO Q8 PRN 08/21/16 Valacyclovir HCl [Valacyclovir] 500 mg PO DAILY 08/21/16 Baclofen 10 mg PO QHS 05/25/17 Cod Liver Oil 1 ea PO DAILY 05/25/17 Oxycodone [Oxyir] 5 mg PO BID PRN PRN 05/25/17 Potassium Citrate [Urocit-K] 10 meq PO DAILY 05/25/17 Phenazopyridine HCl [Pyridium] 200 mg PO BID PRN PRN #10 tab 05/26/17 gabapentin 300 mg capsule 300 mg PO DAILY cap 03/02/18 gabapentin 300 mg capsule 600 mg PO LUNCH cap 03/02/18 Gabapentin [Gralise] 600 mg PO QHS 03/04/18 diclofenac sodium 75 mg 75 mg PO 0800,1500 05/01/18 tablet,delayed release ipratropium 20 mcg-albuterol 100 1 puff INHALATION Q6H PRN 05/01/18 mcg/actuation mist for inhalation magnesium 200 mg tablet 400 mg PO DAILY tab 05/01/18 Budesonide/Formoterol 160/4.5 2 puff INHALATION BID 04/06/19 [Symbicort 160/4.5 Mcg Inhaler (SP)] Dupilumab [Dupixent] 300 mg SUBCUT Q2W 04/06/19 Esomeprazole Mag Trihydrate 10 mg PO DAILY 04/06/19 [Nexium] Surgical History: Surgical History (Last Reviewed 03/30/19 @ 10:46 by Anahi Roberts) History of back surgery (Resolved) Z98.890 L4-S1 fusion in January 2017 H/O foot surgery (Resolved) Z98.890 History of hernia repair Z98.890, Z87.19 History of hysterectomy Z90.710 History of tonsillectomy Z90.89 history bladder sling history removal ectopic Bladder sling clipped 03/06/18 H/O colonoscopy Z98.890 03/05/18 Surgical History: noncontributory, - Psychiatric History: Anxiety FAMILY LIFE EDUCATOR History: No pertinent FAMILY LIFE EDUCATOR history Smoking Status: Former smoker - *Family History Maternal Family History: Family History (Last Reviewed 03/30/19 @ 10:46 by Anahi Roberts) Mother Cancer Sister Cancer Asthma Grandfather CAD (coronary artery disease) Grandmother Arthritis Father Hypertension History Items: No pertinent history Paternal Family History: Family History (Last Reviewed 03/30/19 @ 10:46 by Anahi Roberts) Mother Cancer Sister Cancer Asthma Grandfather CAD (coronary artery disease) Grandmother Arthritis Father Hypertension History Items: No pertinent history Review of Systems Constitutional: Reports: Chills, Fever, Malaise, Weakness, Fatigue. Denies: Weight Change HEENT: Denies: Head Aches, Sinus Congestion, Sinus Drainage Cardiovascular: Denies: Chest Pain, Palpitations Respiratory: Reports: Cough, Pleuritic Pain - Left lower back pain around 11th and 12th rib, Shortness of breath at rest, Shortness of breath upon exertion, Sputum production Gastrointestinal: Denies: Abdominal Pain, Nausea, Vomiting Genitourinary: Denies: Dysuria, Frequency, Hematuria Musculoskeletal: Denies: Joint Pain, Joint Tenderness Skin: Denies: Rash, Wounds Neurological: Denies: Numbness, Tingling, Focal weakness Psychiatric: Denies: Anxiety, Depression, Homicidal Ideations, Suicidal Ideations Hematologic/ Lymphatic: Denies: Easy Bruising, Easy Bleeding VTE Information - Inpt Only VTE Present on Admission: No VTE Mechan Device Prophylaxis: None VTE Pharm Prophylaxis ordered?: Yes - Physical Exam Vitals/I&O's: Vital Signs Temp Pulse Resp BP Pulse Ox 98.2 F 86 18 123/75 H 94 04/06/19 07:41 04/06/19 07:41 04/06/19 07:41 04/06/19 07:41 04/06/19 07:41 Oxygen Flow Rate (L/min) 1.5 Oxygen Delivery Method Nasal Cannula Weight: 140 lb 6.951 oz Body Mass Index (BMI) 24.0 General: Alert, Oriented x3, Cooperative HEENT: Atraumatic, PERRLA, EOMI, Normocephalic Neck: Supple, No JVD, Negative Carotid Bruits Lungs: Diminished - Air entry is diminished in all lung martinez., Rhonchi - Inspiratory and expiratory rhonchi present, Short of Breath Cardiovascular: Regular rate, Regular Rhythm, Normal S1, Normal S2, No murmurs Abdomen: Bowel Sounds Present, Soft, Non Tender, Non-Distended Extremities: No edema, Capillary Refill Less than 3 Seconds Skin: No rashes, No breakdown Musculoskeletal: No Tenderness to Palpation of Joints or Extremities, Arthritic Changes Neurological: Cranial nerves II-XII grossly intact, Deep Tendon Reflexes 2+/4 and Symmetrical, Neuro grossly intact, Motor Exam 5/5 strength throughout Psych/Mental Status: Normal Affect, Appropriate Laboratory Results 04/06/19 06:53: WBC 15.4 H, RBC 3.87 L, Hgb 12.5, Hct 38.1, MCV 98.4, MCH 32.3 H, MCHC 32.8, RDW Std Deviation 48.2 H, RDW Coeff of Tarun 13.3, Plt Count 311, MPV 9.7, Immature Gran % (Auto) 0.900, Neut % (Auto) 75.2 H, Lymph % (Auto) 14.0 L, Colbert % (Auto) 7.7, Eos % (Auto) 1.7, Baso % (Auto) 0.5, Absolute Neuts (auto) 11.5 H, Absolute Lymphs (auto) 2.15, Nucleated RBC % 0 04/06/19 06:53: Sodium 137, Potassium 4.2, Chloride 105, Carbon Dioxide 25.0, Anion Gap 7, BUN 28 H, Creatinine 0.83, Estim Creat Clear Calc 58.35, Est GFR (MDRD) Af Amer 88, Est GFR (MDRD) Non-Af 73, BUN/Creatinine Ratio 33.7 H, Glucose 109 H, Calcium 8.5, Total Bilirubin 0.80, AST 15, ALT 22, Alkaline Phosphatase 106, Total Protein 7.9, Albumin 3.1 L, Globulin 4.8 H, Albumin/Globulin Ratio 0.6 L Current Medications Piperacillin Sod/Tazobactam (Sod 4.5 gm/ Sodium Chloride) 100 mls @ 200 mls/hr IV X1 ONE Stop: 04/06/19 08:48 Sodium Chloride () 1,000 mls @ 999 mls/hr IV .Q1H1M ONE Stop: 04/06/19 09:20 Last Admin: 04/06/19 08:27 Dose: 999 mls/hr Documented by: Vancomycin HCl (Vancomycin) 1,000 mg in 200 mls @ 200 mls/hr IV X1 ONE Stop: 04/06/19 09:29 Assessment/Plan All Active Problems (Last Reviewed 03/30/19 @ 10:46 by Anahi Roberts) Bronchiectasis (Acute) root canal (Resolved) History of back surgery (Resolved) H/O foot surgery (Resolved) Disease of tonsils and adenoids (Resolved) Herpes simplex (Acute) Conjunctivitis (Acute) The patient is a 64 year old F with history of bronchiectasis with multiple ER visit, last one in February 2019 and on multiple antibiotics came to ED with progressive worsening of shortness of breath, productive cough and low-grade fevers since February 2019. Patient finished Levaquin and 6 weeks of tapering dose of prednisone in recent past since February 2019. Patient still gets easily short of breath on mild exertion and even at rest along with yellowish-green sputum. Patient repositioning pressure at home and it was about 100 ?F. She complained of left lower back pain around the 11th and 12th rib on deep cough. [] In ED,No fever was found. Heart rate 77. Pulse ox 96% on 2 L of oxygen and respiratory rate 20/min. 1. Acute exacerbation of bronchiectasis/COPD with suspicion of bibasilar pneumonia: Patient is being admitted on [facility] floor. Blood cultures x2, sputum culture, urinary antigens for Legionella and Streptococcus, respiratory panel and MRSA nasal screen ordered. On bronchodilator every 4 hourly, IV antibiotic vancomycin and Zosyn, incentive spirometry, IV Solu-Medrol, and chest physiotherapy. Pulmonary consult requested from ER physician. CT chest in March 2019 which reported peribronchial thickening with minimal scattered micronodular and groundglass opacities with mild cylindrical bronchiectasis changes. Mild paraseptal emphysema at the apices. Apical scarring. Chest x-ray done in ER shows mild bibasilar pulmonary infiltrates and subsegmental atelectasis. 2 Asthmatic bronchitis and bronchiectasis and thoracolumbar scoliosis: Patient had several rounds of antibiotics since February 2019. She has completed 6 weeks of prednisone also. The patient is awaiting for approval of dupilumab. Patient last PFT was in February 2018; reported within normal limit. No large airways obstructive ventilatory defect with FEV1 of 92% 3. Other chronic comorbidities include neuropathic pain, herpes simplex, lumbar disc disease and thoracolumbar spine. Patient has L4-S1 fusion surgery in January 2017. PT and OT ordered. DVT prophylaxis: On Lovenox 40 Mg subcu daily. Laboratory Results 04/06/19 06:53: WBC 15.4 H, RBC 3.87 L, Hgb 12.5, Hct 38.1, MCV 98.4, MCH 32.3 H, MCHC 32.8, RDW Std Deviation 48.2 H, RDW Coeff of Tarun 13.3, Plt Count 311, MPV 9.7, Immature Gran % (Auto) 0.900, Neut % (Auto) 75.2 H, Lymph % (Auto) 14.0 L, Colbert % (Auto) 7.7, Eos % (Auto) 1.7, Baso % (Auto) 0.5, Absolute Neuts (auto) 11.5 H, Absolute Lymphs (auto) 2.15, Nucleated RBC % 0 04/06/19 06:53: Sodium 137, Potassium 4.2, Chloride 105, Carbon Dioxide 25.0, Anion Gap 7, BUN 28 H, Creatinine 0.83, Estim Creat Clear Calc 58.35, Est GFR (MDRD) Af Amer 88, Est GFR (MDRD) Non-Af 73, BUN/Creatinine Ratio 33.7 H, Glucose 109 H, Calcium 8.5, Total Bilirubin 0.80, AST 15, ALT 22, Alkaline Phosphatase 106, Total Protein 7.9, Albumin 3.1 L, Globulin 4.8 H, Albumin/Globulin Ratio 0.6 L 04/06/19 08:35: Lactic Acid 1.4 Clinical Impression(s) from Imaging Studies Chest X-Ray 04/06/19 06:53 IMPRESSION: New mild bibasilar pulmonary infiltrates and subsegmental atelectasis likely pneumonia Stable mild compression deformities of upper to mid thoracic spine with kyphosis and generalized osteopenia Stable S-shaped thoracolumbar spinal scoliosis, fixation rods and screws within the upper lumbar spine seen on the very inferior field of view Code Visit Inpatient E&M: [id number] Init Hosp L3
--- NOTE | 2019-04-06 08:37 | NURSING ---
126 MED SURG ANTONIO PNEUMONIA, HYPOXIA, BRONCHIECTASIS, HX OF ASTHMA
[2019-04-06] MEDS: Vancomycin IV 1,000 MG/200 ML BAG 200 MG IV (08:45)
[2019-04-06 09:06] LABS: Lactic Acid 1.4 mmol/L (0.4-2.0)
[2019-04-06] MEDS: 0.9% Normal Saline 1,000 ML 75 ML IV (11:15)
[2019-04-06] MEDS: Enoxaparin 40 MG/0.4 ML Syringe SC (11:15)
[2019-04-06] MEDS: Gabapentin 300 MG Capsule PO (11:42)
[2019-04-06] MEDS: Diclofenac 75 MG Tablet PO ×2 (11:43→15:28)
[2019-04-06] MEDS: Acyclovir 200 MG Capsule 400 MG PO (11:44)
--- NOTE | 2019-04-06 13:17 | NURSING ---
nutritional supplement not ordered per prompting because pt states that she will not drink it.
[2019-04-06] MEDS: 0.9% Saline Lock 10 ML Syringe IV (13:22)
--- NOTE | 2019-04-06 14:52 | CON.PCM_ITS ---
Problem List (1) Bronchiectasis Status: Acute Qualifiers: Bronchiectasis type: with acute exacerbation Qualified Code(s): J47.1 - Bronchiectasis with (acute) exacerbation (2) History of back surgery Status: Resolved Comment: L4-S1 fusion in January 2017 (3) H/O foot surgery Status: Resolved (4) Disease of tonsils and adenoids Status: Resolved (5) Scoliosis of thoracolumbar spine Status: Chronic (6) Asthma Status: Chronic Qualifiers: Asthma severity: severe Asthma persistence: persistent Asthma complication type: with acute exacerbation Qualified Code(s): J45.51 - Severe persistent asthma with (acute) exacerbation (7) Nephrolithiasis Status: Chronic (8) Herpes simplex Status: Acute (9) Neuropathic pain Status: Chronic Reason for Consult Date of Consultation: 04/06/19 Reason for Consultation: Bronchiectasis exacerbation History of Present Illness: The patient is a 64 year old F, with past medical history listed below, who presented to [facility] on 04/06/2019 secondary to progressive shortness of breath. Patient has been seen in my office multiple times and plac ed on multiple doses of antibiotics and prednisone without relief. Patient was seen by myself in the office last week and a sputum culture was obtained showing no pathologic organisms. CT scan done approximately a month ago had shown some bronchiectasis, but no acute infiltrate. Patient states that over the last 2 days she has been running around more often and not been able to keep up with her routine of using the Acapella which may have got me behind. Patient states she woke up this morning and had significant left-sided chest pain. Patient described this as a sharp stabbing sensation in the posterior axillary line without significant radiation. This was worse with deep inhalation. On presentation to the ER, patient was noted to have a pulse oximetry of 91 to 92%. Patient was in sinus rhythm at 90 bpm. Patient did have significant leukocytosis at 15.4, but chest x-ray showed a left lower lobe pneumonia. Patient was given duo nebs, supplemental oxygen, ceftriaxone and azithromycin. I was contacted by the ER and patient was placed on vancomycin and Zosyn. Patient was then admitted to the floor for further evaluation. Patient states that she feels subjectively unchanged from presentation. Patient is still having her chest pain, but otherwise is still having a productive cough. Patient denies any fevers or hemoptysis. Patient denies having a previous similar type of chest pain. Patient denies any nausea, vomiting or diarrhea. No abdominal pain is been reported. Review of systems otherwise negative from a constitutional, HEENT, respiratory, cardiovascular, GI, genitourinary, musculoskeletal, skin, neurologic, psychiatric and hematologic system unless stated above. Past Medical History Past Medical History (Chronic Problems): Chronic Problems (Last Reviewed 03/30/19 @ 10:46 by Anahi Roberts) Scoliosis of thoracolumbar spine (Chronic) Lung nodule (Chronic) Asthma (Chronic) Lumbar disc disease (Chronic) Nephrolithiasis (Chronic) Muscle spasm (Chronic) Rhinitis (Chronic) Neuropathic pain (Chronic) COPD (chronic obstructive pulmonary disease) (Chronic) Medical History: Medical History (Last Reviewed 03/30/19 @ 10:46 by Anahi Roberts) Rectal bleeding (Inactive) K62.5 root canal (Resolved) Disease of tonsils and adenoids (Resolved) J35.9 Scoliosis of thoracolumbar spine (Chronic) M41.9 Lung nodule (Chronic) R91.1 Asthma (Chronic) J45.909 Lumbar disc disease (Chronic) M51.9 Nephrolithiasis (Chronic) Herpes simplex (Acute) B00.9 Muscle spasm (Chronic) M62.838 Rhinitis (Chronic) J31.0 Neuropathic pain (Chronic) Conjunctivitis (Acute) H10.9 COPD (chronic obstructive pulmonary disease) (Chronic) J44.9 Acid reflux K21.9 Arthritis M19.90 Asthma J45.909 Back pain M54.9 Blood in stool K92.1 Constipation K59.00 Allergies bacitracin Adverse Reaction (Verified 04/06/19 06:51) Itching chlorpheniramine [From Dristan Cold] Adverse Reaction (Verified 04/06/19 06:51) Other loratadine [From Claritin-D] Adverse Reaction (Verified 04/06/19 06:51) Other morphine Adverse Reaction (Verified 04/06/19 06:51) Nausea phenylephrine [From Dristan Cold] Adverse Reaction (Verified 04/06/19 06:51) Other pseudoephedrine [From Claritin-D] Adverse Reaction (Verified 04/06/19 06:51) Other tramadol Adverse Reaction (Verified 04/06/19 06:51) Vomiting novacaine Adverse Reaction (Uncoded 04/06/19 06:51) Unknown Home Medications: Ambulatory Orders Medication Instructions Recorded Hydroxyzine HCl 25 mg PO Q8 PRN 08/21/16 Valacyclovir HCl [Valacyclovir] 500 mg PO DAILY 08/21/16 Baclofen 10 mg PO QHS 05/25/17 Cod Liver Oil 1 ea PO DAILY 05/25/17 Oxycodone [Oxyir] 5 mg PO BID PRN PRN 05/25/17 Potassium Citrate [Urocit-K] 10 meq PO DAILY 05/25/17 Phenazopyridine HCl [Pyridium] 200 mg PO BID PRN PRN #10 tab 05/26/17 gabapentin 300 mg capsule 300 mg PO DAILY cap 03/02/18 gabapentin 300 mg capsule 600 mg PO LUNCH cap 03/02/18 Gabapentin [Gralise] 600 mg PO QHS 03/04/18 diclofenac sodium 75 mg 75 mg PO 0800,1500 05/01/18 tablet,delayed release ipratropium 20 mcg-albuterol 100 1 puff INHALATION Q6H PRN 05/01/18 mcg/actuation mist for inhalation magnesium 200 mg tablet 400 mg PO DAILY tab 05/01/18 Budesonide/Formoterol 160/4.5 2 puff INHALATION BID 04/06/19 [Symbicort 160/4.5 Mcg Inhaler (SP)] CycloSPORINE Ophthalmic [Restasis 1 drp EACH EYE BID 04/06/19 Ophthalmic] Dupilumab [Dupixent] 300 mg SUBCUT Q2W 04/06/19 Esomeprazole Mag Trihydrate 10 mg PO DAILY 04/06/19 [Nexium] Surgical History: Surgical History (Last Reviewed 03/30/19 @ 10:46 by Anahi Roberts) History of back surgery (Resolved) Z98.890 L4-S1 fusion in January 2017 H/O foot surgery (Resolved) Z98.890 History of hernia repair Z98.890, Z87.19 History of hysterectomy Z90.710 History of tonsillectomy Z90.89 history bladder sling history removal ectopic Bladder sling clipped 03/06/18 H/O colonoscopy Z98.890 03/05/18 Surgical History: noncontributory, - Psychiatric History: Anxiety [employer] History: No pertinent [employer] history Smoking Status: Former smoker - *Family History Maternal Family History: Family History (Last Reviewed 03/30/19 @ 10:46 by Anahi Roberts) Mother Cancer Sister Cancer Asthma Grandfather CAD (coronary artery disease) Grandmother Arthritis Father Hypertension History Items: No pertinent history Paternal Family History: Family History (Last Reviewed 03/30/19 @ 10:46 by Anahi Roberts) Mother Cancer Sister Cancer Asthma Grandfather CAD (coronary artery disease) Grandmother Arthritis Father Hypertension History Items: No pertinent history Objective: Chest x-ray was personally reviewed and does show a left lower lobe infiltrate. - Physical Exam Vitals/I&O's: Vital Signs Temp Pulse Resp BP Pulse Ox 36.3 C L 85 16 114/44 L 96 04/06/19 09:45 04/06/19 11:18 04/06/19 11:18 04/06/19 09:45 04/06/19 11:18 Oxygen Flow Rate (L/min) 2 Oxygen Delivery Method Nasal Cannula Weight: 63.4 kg Body Mass Index (BMI) 24.0 Intake and Output for Last 24 Hours 04/04/19 04/05/19 04/06/19 23:59 23:59 23:59 Intake Total 1420 / 1420 Balance 1420 / 1420 General: Alert, Oriented x3, Cooperative, - - Mild to moderate conversational dyspnea. HEENT: Atraumatic, PERRLA, EOMI, Normocephalic, - - No scleral icterus or injection noted Oral: Moist Mucosa, No Gingival or Mucosal Lesions/ Ulcerations Neck: Supple, No JVD, No Nodes, Trachea Midline Lungs: No rales, Diminished, Rhonchi - Left base, Wheezes, - - Unable to reproduce chest pain with palpation Cardiovascular: Regular rate, Regular Rhythm, Normal S1, Normal S2, No murmurs, No rub noted, No Gallop Abdomen: Bowel Sounds Present, Soft, Non Tender, Non-Distended Extremities: No clubbing, No cyanosis, No edema, Capillary Refill Less than 3 Seconds Skin: No rashes, No breakdown Musculoskeletal: No Tenderness to Palpation of Joints or Extremities Lymphatic: No Cervical, Supraclavicular, or Inguinal Adenopathy Neurological: Cranial nerves II-XII grossly intact, Neuro grossly intact, Motor Exam 5/5 strength throughout Psych/Mental Status: Alert and oriented to time, place, person, mood and affect Laboratory Results 04/06/19 06:53: WBC 15.4 H, RBC 3.87 L, Hgb 12.5, Hct 38.1, MCV 98.4, MCH 32.3 H , MCHC 32.8, RDW Std Deviation 48.2 H, RDW Coeff of Tarun 13.3, Plt Count 311, MPV 9.7, Immature Gran % (Auto) 0.900, Neut % (Auto) 75.2 H, Lymph % (Auto) 14.0 L, [place] % (Auto) 7.7, Eos % (Auto) 1.7, Baso % (Auto) 0.5, Absolute Neuts (auto) 11.5 H, Absolute Lymphs (auto) 2.15, Nucleated RBC % 0 04/06/19 06:53: Sodium 137, Potassium 4.2, Chloride 105, Carbon Dioxide 25.0, Anion Gap 7, BUN 28 H, Creatinine 0.83, Estim Creat Clear Calc 58.35, Est GFR (MDRD) Af Amer 88, Est GFR (MDRD) Non-Af 73, BUN/Creatinine Ratio 33.7 H, Glucose 109 H, Calcium 8.5, Total Bilirubin 0.80, AST 15, ALT 22, Alkaline Phosphatase 106, Total Protein 7.9, Albumin 3.1 L, Globulin 4.8 H, Albumin/Globulin Ratio 0.6 L 04/06/19 08:35: Lactic Acid 1.4 04/06/19 13:15: MRSA (PCR) Pending Current Medications Acetaminophen (Tylenol) 650 mg PO Q6H PRN PRN PRN Reason: Pain Score 1-3/Temp > 100.7 F Acyclovir (Zovirax) 400 mg PO Q12 [facility] Last Admin: 04/06/19 11:44 Dose: 400 mg Documented by: Albuterol Sulfate (Ventolin Aerosols) 2.5 mg INHALATION Q2H PRN PRN PRN Reason: SOB/Wheezing Albuterol/Ipratropium (Duoneb) 3 ml INHALATION Q4HWA.RT [facility] Last Admin: 04/06/19 14:47 Dose: 3 ml Documented by: Artificial Tears (Thera Tears) 1 each EACH EYE Q1H PRN PRN Reason: DRY EYES Baclofen (Lioresal) 10 mg PO QHS [facility] Dextrose (D50w Syringe) 0 gm IV X1 PRN; Protocol PRN Reason: Hypoglycemia Diclofenac Sodium (Voltaren) 75 mg PO 0800,1500 [facility] Last Admin: 04/06/19 11:43 Dose: 75 mg Documented by: Enoxaparin Sodium (Lovenox) 40 mg SC DAILY [facility] Last Admin: 04/06/19 11:15 Dose: 40 mg Documented by: Famotidine (Pepcid) 20 mg PO BID [facility] Gabapentin (Neurontin) 600 mg PO QHS [facility] Gabapentin (Neurontin) 300 mg PO DAILY@0800 [facility] Last Admin: 04/06/19 11:42 Dose: 300 mg Documented by: Gabapentin (Neurontin) 600 mg PO LUNCH [facility] Glucagon () 1 mg IM .X1 PRN PRN Reason: Hypoglycemia Guaifenesin (Mucinex) 1,200 mg PO BID [facility] Hydroxyzine Pamoate (Vistaril Pamoate Capsule) 25 mg PO Q8H PRN PRN PRN Reason: ANXIETY Sodium Chloride () 250 mls @ 15 mls/hr IV .[id number] PRN PRN Reason: Saline Flush Vancomycin HCl () 500 mg in 100 mls @ 100 mls/hr IV Q12H [facility] Sodium Chloride () 1,000 mls @ 75 mls/hr IV .[id number] [facility] Stop: 04/06/19 23:54 Last Admin: 04/06/19 11:15 Dose: 75 mls/hr Documented by: Piperacillin Sod/Tazobactam (Sod 3.375 gm/ Sodium Chloride) 50 mls @ 12.5 mls/hr IV Q8 [facility] Last Admin: 04/06/19 13:16 Dose: 12.5 mls/hr Documented by: Vancomycin IV Pharmacy to Dose (1 ea/ Sodium Chloride) 500 mls @ 250 mls/hr IV DAILY PRN; Protocol Magnesium Oxide (Mag-Ox 400) 400 mg PO DAILY [facility] Methylprednisolone (Solu-Medrol) 40 mg IV Q8 [facility] Last Admin: 04/06/19 13:22 Dose: 40 mg Documented by: Nitroglycerin (Nitrostat) 0.4 mg SUBLINGUAL Q5M PRN PRN Reason: CARDIAC/CHEST PAIN Ondansetron HCl (Zofran) 4 mg IV Q8H PRN PRN PRN Reason: NAUSEA/VOMITING Oxycodone HCl (Oxyir) 5 mg PO BID PRN PRN PRN Reason: Pain Score 1-10/10 Pantoprazole Sodium (Protonix) 20 mg PO DAILY [facility] Potassium Chloride (K-Dur) 10 meq PO DAILY@0800 [facility] Prochlorperazine Edisylate (Compazine Iv) 5 mg IV Q4H PRN PRN PRN Reason: Breakthrough Nausea/Vomiting Senna/Docusate Sodium (Senokot-S, Petra-Colace) 2 tablet PO BID PRN PRN PRN Reason: Constipation Sodium Chloride () 10 - 40 ml IV UD PRN PRN Reason: SALINE FLUSH Last Admin: 04/06/19 13:22 Dose: 10 ml Documented by: Clinical Impression(s) from Imaging Studies Chest X-Ray 04/06/19 06:53 IMPRESSION: New mild bibasilar pulmonary infiltrates and subsegmental atelectasis likely pneumonia Stable mild compression deformities of upper to mid thoracic spine with kyphosis and generalized osteopenia Stable S-shaped thoracolumbar spinal scoliosis, fixation rods and screws within the upper lumbar spine seen on the very inferior field of view Electronically Signed: Luis Carlos Griffith, at 7:57 EST Tel , Service support , Assessment/Plan All Active Problems (Last Reviewed 03/30/19 @ 10:46 by Anahi Roberts) Bronchiectasis (Acute) root canal (Resolved) History of back surgery (Resolved) H/O foot surgery (Resolved) Disease of tonsils and adenoids (Resolved) Herpes simplex (Acute) Conjunctivitis (Acute) RECOMMENDATIONS: 1. Continue IV steroids, bronchodilators and mucolytic 2. Aggressive pulmonary toileting 3. Healthcare associated antibiotics pending culture results, viral panel 4. Wean oxygen as tolerated IMPRESSIONS: 1. Acute exacerbation of bronchiectasis with left lower lobe pneumonia and failure of outpatient therapy Patient treated with doxycycline and Levaquin therapy as an outpatient, in addition to to prednisone burst. Patient is compliant with Acapella therapy, but continued to decline. Patient has cultures currently pending. Treatment with healthcare associated antibiotics would be appropriate. Agree with Solu- Medrol. Patient recently had a CT scan, so this is likely not necessary to repeat. Patient was supposed to be started on Dupixent, but this can be held until acute condition is resolved. Previous pulmonary function tests have not been suggestive of advanced airway obstruction. 2. Thoracolumbar scoliosis/osteopenia/chronic pain syndrome Patient with recent back surgery to help with her alignment. Patient does have significant pain at baseline and this may limit her ability to achieve appropriate pulmonary toileting. May attempt vest therapy during hospitalization to see how she tolerates. 3. Neuropathic pain/HSV/history of constipation Complicates care, management, recovery and prognosis. Patient would benefit from a bowel regimen to avoid constipation complicating hospital course. DVT and GI prophylaxis appropriate. Code Visit Inpatient E&M: 05314 Init Hosp L3
--- NOTE | 2019-04-06 15:00 | NURSING ---
This RN is taking over care of this patient at this time.
[2019-04-06] MEDS: Gabapentin 600 MG Tablet PO ×2 (15:28→22:57)
[2019-04-06] MEDS: Magnesium Oxide 400 MG Tablet PO (15:28)
[2019-04-06 15:36] LABS: M R Staph aureus DNA By PCR Negative (Negative); Probe Check PASS; Specimen Processing Control PASS
--- NOTE | 2019-04-06 17:00 | PHA.PHARE_ITS ---
Consult Pharmacy has been consulted to manage selected antiobiotic: Vancomycin Type of Consult: New start Suspected Infection: Pneumonia Prior Doses of Antibiotics Received/Current Regimen: Vancomycin 1000mg x1 in the ER 04/06/19 at 0845 Labs: Sodium 137 mmol/L (136-145) 04/06/19 06:53 Potassium 4.2 mmol/L (3.5-5.1) 04/06/19 06:53 Chloride 105 mmol/L (98-107) 04/06/19 06:53 Carbon Dioxide 25.0 mmol/L (21.0-32.0) 04/06/19 06:53 Anion Gap 7 (5-15) 04/06/19 06:53 BUN 28 mg/dL (7-18) H 04/06/19 06:53 Creatinine 0.83 mg/dL (0.55-1.02) 04/06/19 06:53 Est GFR (MDRD) Af Amer 88 mL/min (>60) 04/06/19 06:53 Est GFR (MDRD) Non-Af 73 mL/min (>60) 04/06/19 06:53 BUN/Creatinine Ratio 33.7 RATIO (10-20) H 04/06/19 06:53 Glucose 109 mg/dL (74-106) H 04/06/19 06:53 Microbiology: Microbiology 04/06/19 10:50 Mucosa - Nose Respiratory Panel (PCR) - Final 04/06/19 12:15 Urine, Clean Catch Streptococcus pneumoniae Antigen (M - Final 04/06/19 12:15 Urine, Clean Catch Legionella Antigen - Final Weight used for dosin kg Estimated Creatinine Clearance: 58ml/min Goal Trough: 15-20 mcg/mL Pharmacy Plan for Drug Dosing: Pt received a one time dose of Vancomycin 15mg/kg in the ER 04/06/19 at 0845. Based on pt's weight and crcl, initial recommendation is for pt to receive Vancomycin 500mg IV q12h starting 12 hours after the initial ER dose. Trough will be drawn before the 4th total dose on 04/07/19 at 2030. Goal trough is 15- 20. Pharmacy Service will continue to monitor and adjust dosing as required. Follow-Up Labs: Trough Vancomycin - 04/07/19 at 2030
[2019-04-06] MEDS: Carboxymethylcellulose sodium gel dropperette 1 EACH EACH EYE (17:13)
[2019-04-06] MEDS: Vancomycin IV 500 MG/100 ML BAG 100 MG IV (20:01)
[2019-04-06] MEDS: hydrOXYzine PAM 25 MG Capsule PO (22:57)
[2019-04-06] MEDS: guaiFENesin 1,200 MG Tablet 1200 MG PO (22:57)
[2019-04-06] MEDS: Baclofen 10 MG Tablet PO (22:58)
[2019-04-06] MEDS: Famotidine 20 MG Tablet PO (22:58)
[2019-04-07] VITALS (7 sets, daily range): BP systolic 107–126; BP diastolic 59–80; PULSE 74–98; RESP 16–18; TEMP 36.5–36.7; O2SAT 93–96
[2019-04-07 05:12] LABS: Absolute Lymphocyte Count 0.97 X10^3/uL (0.83-4.51); Absolute Neutrophil Count 17.3 X10^3/uL (2.0-7.7); Basophil# 0.03 X10^3/uL; Basophil% 0.2 % (0-1); Hemoglobin 10.5 g/dL (12.0-15.0); Lymphocyte # 0.97 X10^3/ul (4.0); Lymphocyte % 5.2 % (19-41); Mean Corp Hgb Conc 32.8 g/dL (32-36); Mean Corpuscular Hgb 32.9 pg (27.0-32.0); Mean Corpuscular Volume 100.3 fL (81-99); Mean Platelet Vol. 9.7 fl (6.2-12.0); Monocyte# 0.24 X10^3/uL; Monocyte% 1.3 % (0-10); NRBC Flagged by Analyzer 0 % (0-5); Neutrophil # 17.25 X10^3/uL (2.7-7.7); Neutrophil % 92.1 % (47-70); POSITIVE MORPHOLOGY YES; Platelet Count 270 K/mm3 (150-450); RBC Distribution Width CV 13.4 % (11.6-14.6); RBC Distribution Width SD 50.2 fl (35.1-43.9); Red Blood Count 3.19 M/mm3 (4.2-5.4); White Blood Count 18.7 K/mm3 (4.4-11.0)
[2019-04-07 05:28] LABS: Differential Indicated SCAN CRITERIA MET
[2019-04-07 05:41] LABS: Anion Gap 6 (5-15); BUN 22 mg/dL (7-18); BUN/Creat Ratio 28.4 RATIO (10-20); Calcium,Total 8.4 mg/dL (8.5-10.1); Chloride 113 mmol/L (98-107); Creatinine, Serum 0.77 mg/dL (0.55-1.02); EST Glomerular Filtration Rate 79 mL/min (>60); Est Glom Filt Rate - Afr Amer 96 mL/min (>60); Glucose 156 mg/dL (74-106); Potassium 4.1 mmol/L (3.5-5.1); Sodium Level 144 mmol/L (136-145); Thyroid Stim Hormone (TSH) 0.35 uIU/mL (0.358-3.74)
[2019-04-07] MEDS: 0.9% Saline Lock 10 ML Syringe IV (05:49)
[2019-04-07] MEDS: Ipratropium/Albuterol Sulfate 3 ML AMPUL.NEB INHALATION ×4 (07:17→21:50)
[2019-04-07] MEDS: Diclofenac 75 MG Tablet PO ×2 (08:22→14:53)
[2019-04-07] MEDS: Gabapentin 300 MG Capsule PO (08:23)
[2019-04-07] MEDS: Vancomycin IV 500 MG/100 ML BAG 100 MG IV (08:23)
[2019-04-07] MEDS: Famotidine 20 MG Tablet PO ×2 (11:06→21:50)
[2019-04-07] MEDS: guaiFENesin 1,200 MG Tablet 1200 MG PO ×2 (11:06→21:51)
[2019-04-07] MEDS: Acyclovir 200 MG Capsule 400 MG PO (11:07)
[2019-04-07] MEDS: Pantoprazole Sodium 20 MG Tablet PO (11:07)
[2019-04-07] MEDS: Magnesium Oxide 400 MG Tablet PO (11:07)
[2019-04-07] MEDS: oxyCODONE 5 MG Tablet PO (11:08)
[2019-04-07] MEDS: Enoxaparin 40 MG/0.4 ML Syringe SC (11:09)
[2019-04-07] MEDS: Acetaminophen 325 MG Tablet 650 MG PO (11:10)
--- NOTE | 2019-04-07 11:10 | CASEMGMT ---
This RN CM to room to complete CM assessment at this time and student nurse is at bedside completing meds at this time. Will attempt again later. SStbessie RN CM
--- NOTE | 2019-04-07 11:34 | CASEMGMT ---
MIROSLAVA DIA assessment: Face to Face with patient for initial transition planning/care coordination assessment. MIROSLAVA DIA introduced self and role at [facility], pt voices understanding and consents to assessment at this time. Pt is sitting up in chair in no distress at this time. Pt is A/Ox4 at this time and answers all questions appropriately at this time. Care providers, pharmacy, and demographics verified/updated at this time. PCP: Julian Asher Specialists: sarah Terrazas; Pool PM; Javon, spine surgeon at [facility] Preferred Pharmacy: [facility] Insurance: MCR A/B, MMO Prescription Benefit: [employer] Plus Living Will/HPOA: Pt states has LW/HPOA and is aware that they are not on file at [facility] at this time. Pt encouraged to bring in when able, voices understanding. Pt states that her , Conrad Ding, is HPOA. LNOK: Conrad Ding, Living Arrangements: Pt states lives in 3 story farm house and states no concerns at home at this time. Pt states is independent with ADL's. Transportation: Pt states occasionally drives and states no transportation concerns at this time. DME/HHC: Pt states has a cane and walker from previous back surgery but states does not currently use. Pt states no hx of HHC but has been to [facility] IP rehab in the past. Pt states no concerns with going home at time of discharge. Pt states is on disability. Pt states does not smoke but does drink ETOH occasionally. Pt states no further concerns/needs at this time. CM to follow for home oxygen and for any further discharge planning/needs. Advised pt to ask for CM if any further questions/concerns/needs arise, voices understanding. Pt Goal: Home Plan: Home, pending home oxygen testing. SStaten MIROSLAVA DIA
--- NOTE | 2019-04-07 11:58 | CASEMGMT ---
junior project manager informed pt LW/POA forms not on file and encouraged pt to bring in the forms as able. RADHA Jane
[2019-04-07] MEDS: DULoxetine Hcl 60 MG Capsule PO (12:57)
[2019-04-07] MEDS: Gabapentin 600 MG Tablet PO ×2 (12:58→21:51)
--- NOTE | 2019-04-07 14:49 | PN_ITS ---
Subjective: Patient did okay overnight. Patient continues to have significant coughing, but not producing much with Acapella therapy. Patient subjectively feels improved from a shortness of breath standpoint. Pain is much improved compared to previous. Patient did report some insomnia, but states this is normal with me on prednisone. - Physical Exam Vitals/I&O's: Vital Signs Temp Pulse Resp BP Pulse Ox 36.5 C L 77 16 126/80 H 93 04/07/19 14:41 04/07/19 14:41 04/07/19 14:41 04/07/19 14:41 04/07/19 11:24 Oxygen Flow Rate (L/min) 2 Oxygen Delivery Method Nasal Cannula Weight: 64.7 kg Body Mass Index (BMI) 24.0 Intake and Output for Last 24 Hours 04/05/19 04/06/19 04/07/19 23:59 23:59 23:59 Intake Total 2190 / 2190 1350 / 1350 Balance 2190 / 2190 1350 / 1350 General: Alert, Oriented x3, Cooperative, No apparent distress, Well developed, Well nourished, - - No conversational dyspnea. Coughed several times during examination HEENT: Atraumatic, PERRLA, EOMI, Normocephalic, - - Slight scleral injection without icterus Oral: Moist Mucosa, No Gingival or Mucosal Lesions/ Ulcerations Neck: Supple, No JVD, No Nodes, Trachea Midline Lungs: No rales, Diminished, Rhonchi - Left base, Wheezes, - - Symmetric expansion. No dullness to percussion. Cardiovascular: Regular rate, Regular Rhythm, Normal S1, Normal S2, No murmurs, No rub noted, No Gallop Abdomen: Bowel Sounds Present, Soft, Non Tender, Non-Distended Extremities: No clubbing, No cyanosis, Edema - Trace lower extremity Skin: No rashes, No breakdown Musculoskeletal: No Tenderness to Palpation of Joints or Extremities, No Muscle Wasting Lymphatic: No Cervical, Supraclavicular, or Inguinal Adenopathy Neurological: Cranial nerves II-XII grossly intact, Neuro grossly intact, Motor Exam 5/5 strength throughout Psych/Mental Status: Alert and oriented to time, place, person, mood and affect Microbiology Past 72 Hours 04/06/19 16:06 Sputum, Expectorated/Coughed Gram Stain - Final 04/06/19 16:06 Sputum, Expectorated/Coughed Respiratory Culture - Preliminary Alpha hemolytic organism 04/06/19 10:50 Mucosa - Nose Respiratory Panel (PCR) - Final 04/06/19 12:15 Urine, Clean Catch Streptococcus pneumoniae Antigen (M - Final 04/06/19 12:15 Urine, Clean Catch Legionella Antigen - Final Laboratory Results 04/06/19 13:15: MRSA (PCR) Negative 04/07/19 05:00: WBC 18.7 H, RBC 3.19 L, Hgb 10.5 L, Hct 32.0 L, MCV 100.3 H, MCH 32.9 H, MCHC 32.8, RDW Std Deviation 50.2 H, RDW Coeff of Tarun 13.4, Plt Count 270, MPV 9.7, Immature Gran % (Auto) 1.200 H, Neut % (Auto) 92.1 H, Lymph % (Auto) 5.2 L, [place] % (Auto) 1.3, Eos % (Auto) 0.0, Baso % (Auto) 0.2, Absolute Neuts (auto) 17.3 H, Absolute Lymphs (auto) 0.97, Nucleated RBC % 0 04/07/19 05:00: Sodium 144, Potassium 4.1, Chloride 113 H, Carbon Dioxide 25.0, Anion Gap 6, BUN 22 H, Creatinine 0.77, Estim Creat Clear Calc 62.90, Est GFR (MDRD) Af Amer 96, Est GFR (MDRD) Non-Af 79, BUN/Creatinine Ratio 28.4 H, Glucose 156 H, Calcium 8.4 L, TSH 0.35 L Current Medications Acetaminophen (Tylenol) 650 mg PO Q6H PRN PRN PRN Reason: Pain Score 1-3/Temp > 100.7 F Last Admin: 04/07/19 11:10 Dose: 650 mg Documented by: Acyclovir (Zovirax) 400 mg PO Q12 [facility] Last Admin: 04/07/19 11:07 Dose: 400 mg Documented by: Albuterol Sulfate (Ventolin Aerosols) 2.5 mg INHALATION Q2H PRN PRN PRN Reason: SOB/Wheezing Albuterol/Ipratropium (Duoneb) 3 ml INHALATION Q4HWA.RT [facility] Last Admin: 04/07/19 11:23 Dose: 3 ml Documented by: Artificial Tears (Thera Tears) 1 each EACH EYE Q1H PRN PRN Reason: DRY EYES Last Admin: 04/06/19 17:13 Dose: 1 each Documented by: Baclofen (Lioresal) 10 mg PO QHS [facility] Last Admin: 04/06/19 22:58 Dose: 10 mg Documented by: Dextrose (D50w Syringe) 0 gm IV X1 PRN; Protocol PRN Reason: Hypoglycemia Diclofenac Sodium (Voltaren) 75 mg PO 0800,1500 [facility] Last Admin: 04/07/19 08:22 Dose: 75 mg Documented by: Duloxetine HCl (Cymbalta) 60 mg PO DAILY [facility] Last Admin: 04/07/19 12:57 Dose: 60 mg Documented by: Enoxaparin Sodium (Lovenox) 40 mg SC DAILY [facility] Last Admin: 04/07/19 11:09 Dose: 40 mg Documented by: Famotidine (Pepcid) 20 mg PO BID [facility] Last Admin: 04/07/19 11:06 Dose: 20 mg Documented by: Gabapentin (Neurontin) 600 mg PO QHS [facility] Last Admin: 04/06/19 22:57 Dose: 600 mg Documented by: Gabapentin (Neurontin) 300 mg PO DAILY@0800 [facility] Last Admin: 04/07/19 08:23 Dose: 300 mg Documented by: Gabapentin (Neurontin) 600 mg PO LUNCH [facility] Last Admin: 04/07/19 12:58 Dose: 600 mg Documented by: Glucagon () 1 mg IM .X1 PRN PRN Reason: Hypoglycemia Guaifenesin (Mucinex) 1,200 mg PO BID [facility] Last Admin: 04/07/19 11:06 Dose: 1,200 mg Documented by: Hydroxyzine Pamoate (Vistaril Pamoate Capsule) 25 mg PO Q8H PRN PRN PRN Reason: ANXIETY Last Admin: 04/06/19 22:57 Dose: 25 mg Documented by: Sodium Chloride () 250 mls @ 15 mls/hr IV .[id number] PRN PRN Reason: Saline Flush Last Infusion: 04/07/19 05:49 Dose: 0 mls/hr Documented by: Piperacillin Sod/Tazobactam (Sod 3.375 gm/ Sodium Chloride) 50 mls @ 12.5 mls/hr IV Q8 [facility] Last Admin: 04/07/19 13:32 Dose: 12.5 mls/hr Documented by: Magnesium Oxide (Mag-Ox 400) 400 mg PO DAILY [facility] Last Admin: 04/07/19 11:07 Dose: 400 mg Documented by: Methylprednisolone (Solu-Medrol) 40 mg IV Q8 [facility] Last Admin: 04/07/19 13:31 Dose: 40 mg Documented by: Nitroglycerin (Nitrostat) 0.4 mg SUBLINGUAL Q5M PRN PRN Reason: CARDIAC/CHEST PAIN Ondansetron HCl (Zofran) 4 mg IV Q8H PRN PRN PRN Reason: NAUSEA/VOMITING Oxycodone HCl (Oxyir) 5 mg PO BID PRN PRN PRN Reason: Pain Score 1-10/10 Last Admin: 04/07/19 11:08 Dose: 5 mg Documented by: Pantoprazole Sodium (Protonix) 20 mg PO DAILY [facility] Last Admin: 04/07/19 11:07 Dose: 20 mg Documented by: Potassium Chloride (K-Dur) 10 meq PO DAILY@0800 [facility] Last Admin: 04/07/19 08:22 Dose: 10 meq Documented by: Prochlorperazine Edisylate (Compazine Iv) 5 mg IV Q4H PRN PRN PRN Reason: Breakthrough Nausea/Vomiting Senna/Docusate Sodium (Senokot-S, Petra-Colace) 2 tablet PO BID PRN PRN PRN Reason: Constipation Sodium Chloride () 10 - 40 ml IV UD PRN PRN Reason: SALINE FLUSH Last Admin: 04/07/19 05:49 Dose: 10 ml Documented by: Medical Necessity - Tobacco Use Smoking Status: Former smoker Assessment/Plan All Active Problems (Last Reviewed 03/30/19 @ 10:46 by Anahi Roberts) Bronchiectasis (Acute) root canal (Resolved) History of back surgery (Resolved) H/O foot surgery (Resolved) Disease of tonsils and adenoids (Resolved) Herpes simplex (Acute) Conjunctivitis (Acute) RECOMMENDATIONS: 1. Continue IV steroids, bronchodilators and mucolytic 2. Aggressive pulmonary toileting. Increase to vest therapy 3. Okay to discontinue vancomycin. Continue Zosyn. Await results of culture 4. Wean oxygen as tolerated IMPRESSIONS: 1. Acute exacerbation of bronchiectasis with left lower lobe pneumonia and failure of outpatient therapy Patient treated with doxycycline and Levaquin therapy as an outpatient, in addition to to prednisone burst. Patient is compliant with Acapella therapy, but continued to decline. Patient has cultures currently growing substantial alphahemolytic organism. Treatment with healthcare associated antibiotics would be appropriate. Agree with Solu-Medrol. Patient recently had a CT scan, so this is likely not necessary to repeat. Patient was supposed to be started on Dupixent, but this can be held until acute condition is resolved. Previous pulmonary function tests have not been suggestive of advanced airway obstruction. 2. Thoracolumbar scoliosis/osteopenia/chronic pain syndrome Patient with recent back surgery to help with her alignment. Patient does have significant pain at baseline and this may limit her ability to achieve appropriate pulmonary toileting. Attempt vest therapy during hospitalization to see how she tolerates. 3. Neuropathic pain/HSV/history of constipation Complicates care, management, recovery and prognosis. Patient would benefit from a bowel regimen to avoid constipation complicating hospital course. DVT and GI prophylaxis appropriate. Code Visit Inpatient E&M: 34605 Subs Hosp L2
--- NOTE | 2019-04-07 15:07 | PCM.PN.HOSP ---
Reason for Visit: Bronchiectasis exacerbation with dyspnea at rest Objective: No fever or chills. Pulse ox 94% on 2 L of oxygen. No tachypnea. Vitals/I&O's: Vital Signs Temp Pulse Resp BP Pulse Ox 97.7 F L 77 16 126/80 H 93 04/07/19 14:41 04/07/19 14:41 04/07/19 14:41 04/07/19 14:41 04/07/19 11:24 Oxygen Flow Rate (L/min) 2 Oxygen Delivery Method Nasal Cannula Weight: 142 lb 10.225 oz Body Mass Index (BMI) 24.0 Intake and Output for Last 24 Hours 04/05/19 04/06/19 04/07/19 23:59 23:59 23:59 Intake Total 2190 / 2190 1350 / 1350 Balance 2190 / 2190 1350 / 1350 General: Alert, Oriented x3, Cooperative HEENT: Atraumatic, PERRLA, EOMI, Normocephalic Neck: Supple, No JVD, Negative Carotid Bruits Lungs: Diminished, Rhonchi, - - Scoliosis Cardiovascular: Regular rate, Regular Rhythm, Normal S1, Normal S2, No murmurs Abdomen: Bowel Sounds Present, Soft, Non Tender, Non-Distended Extremities: No edema, Capillary Refill Less than 3 Seconds Skin: No rashes, No breakdown Musculoskeletal: No Tenderness to Palpation of Joints or Extremities, Arthritic Changes Neurological: Cranial nerves II-XII grossly intact Psych/Mental Status: Normal Affect, Appropriate Microbiology Past 72 Hours 04/06/19 16:06 Sputum, Expectorated/Coughed Gram Stain - Final 04/06/19 16:06 Sputum, Expectorated/Coughed Respiratory Culture - Preliminary Alpha hemolytic organism 04/06/19 10:50 Mucosa - Nose Respiratory Panel (PCR) - Final 04/06/19 12:15 Urine, Clean Catch Streptococcus pneumoniae Antigen (M - Final 04/06/19 12:15 Urine, Clean Catch Legionella Antigen - Final Laboratory Results 04/06/19 13:15: MRSA (PCR) Negative 04/07/19 05:00: WBC 18.7 H, RBC 3.19 L, Hgb 10.5 L, Hct 32.0 L, MCV 100.3 H, MCH 32.9 H, MCHC 32.8, RDW Std Deviation 50.2 H, RDW Coeff of Tarun 13.4, Plt Count 270, MPV 9.7, Immature Gran % (Auto) 1.200 H, Neut % (Auto) 92.1 H, Lymph % (Auto) 5.2 L, Laporte % (Auto) 1.3, Eos % (Auto) 0.0, Baso % (Auto) 0.2, Absolute Neuts (auto) 17.3 H, Absolute Lymphs (auto) 0.97, Nucleated RBC % 0 04/07/19 05:00: Sodium 144, Potassium 4.1, Chloride 113 H, Carbon Dioxide 25.0, Anion Gap 6, BUN 22 H, Creatinine 0.77, Estim Creat Clear Calc 62.90, Est GFR (MDRD) Af Amer 96, Est GFR (MDRD) Non-Af 79, BUN/Creatinine Ratio 28.4 H, Glucose 156 H, Calcium 8.4 L, TSH 0.35 L Current Medications Acetaminophen (Tylenol) 650 mg PO Q6H PRN PRN PRN Reason: Pain Score 1-3/Temp > 100.7 F Last Admin: 04/07/19 11:10 Dose: 650 mg Documented by: Acyclovir (Zovirax) 400 mg PO Q12 [facility] Last Admin: 04/07/19 11:07 Dose: 400 mg Documented by: Albuterol Sulfate (Ventolin Aerosols) 2.5 mg INHALATION Q2H PRN PRN PRN Reason: SOB/Wheezing Albuterol/Ipratropium (Duoneb) 3 ml INHALATION Q4HWA.RT [facility] Last Admin: 04/07/19 11:23 Dose: 3 ml Documented by: Artificial Tears (Thera Tears) 1 each EACH EYE Q1H PRN PRN Reason: DRY EYES Last Admin: 04/06/19 17:13 Dose: 1 each Documented by: Baclofen (Lioresal) 10 mg PO QHS [facility] Last Admin: 04/06/19 22:58 Dose: 10 mg Documented by: Dextrose (D50w Syringe) 0 gm IV X1 PRN; Protocol PRN Reason: Hypoglycemia Diclofenac Sodium (Voltaren) 75 mg PO 0800,1500 [facility] Last Admin: 04/07/19 14:53 Dose: 75 mg Documented by: Duloxetine HCl (Cymbalta) 60 mg PO DAILY [facility] Last Admin: 04/07/19 12:57 Dose: 60 mg Documented by: Enoxaparin Sodium (Lovenox) 40 mg SC DAILY [facility] Last Admin: 04/07/19 11:09 Dose: 40 mg Documented by: Famotidine (Pepcid) 20 mg PO BID [facility] Last Admin: 04/07/19 11:06 Dose: 20 mg Documented by: Gabapentin (Neurontin) 600 mg PO QHS [facility] Last Admin: 04/06/19 22:57 Dose: 600 mg Documented by: Gabapentin (Neurontin) 300 mg PO DAILY@0800 [facility] Last Admin: 04/07/19 08:23 Dose: 300 mg Documented by: Gabapentin (Neurontin) 600 mg PO LUNCH [facility] Last Admin: 04/07/19 12:58 Dose: 600 mg Documented by: Glucagon () 1 mg IM .X1 PRN PRN Reason: Hypoglycemia Guaifenesin (Mucinex) 1,200 mg PO BID [facility] Last Admin: 04/07/19 11:06 Dose: 1,200 mg Documented by: Hydroxyzine Pamoate (Vistaril Pamoate Capsule) 25 mg PO Q8H PRN PRN PRN Reason: ANXIETY Last Admin: 04/06/19 22:57 Dose: 25 mg Documented by: Sodium Chloride () 250 mls @ 15 mls/hr IV .[id number] PRN PRN Reason: Saline Flush Last Infusion: 04/07/19 05:49 Dose: 0 mls/hr Documented by: Piperacillin Sod/Tazobactam (Sod 3.375 gm/ Sodium Chloride) 50 mls @ 12.5 mls/hr IV Q8 [facility] Last Admin: 04/07/19 13:32 Dose: 12.5 mls/hr Documented by: Magnesium Oxide (Mag-Ox 400) 400 mg PO DAILY [facility] Last Admin: 04/07/19 11:07 Dose: 400 mg Documented by: Methylprednisolone (Solu-Medrol) 40 mg IV Q8 [facility] Last Admin: 04/07/19 13:31 Dose: 40 mg Documented by: Nitroglycerin (Nitrostat) 0.4 mg SUBLINGUAL Q5M PRN PRN Reason: CARDIAC/CHEST PAIN Ondansetron HCl (Zofran) 4 mg IV Q8H PRN PRN PRN Reason: NAUSEA/VOMITING Oxycodone HCl (Oxyir) 5 mg PO BID PRN PRN PRN Reason: Pain Score 1-10/10 Last Admin: 04/07/19 11:08 Dose: 5 mg Documented by: Pantoprazole Sodium (Protonix) 20 mg PO DAILY [facility] Last Admin: 04/07/19 11:07 Dose: 20 mg Documented by: Potassium Chloride (K-Dur) 10 meq PO DAILY@0800 [facility] Last Admin: 04/07/19 08:22 Dose: 10 meq Documented by: Prochlorperazine Edisylate (Compazine Iv) 5 mg IV Q4H PRN PRN PRN Reason: Breakthrough Nausea/Vomiting Senna/Docusate Sodium (Senokot-S, Petra-Colace) 2 tablet PO BID PRN PRN PRN Reason: Constipation Sodium Chloride () 10 - 40 ml IV UD PRN PRN Reason: SALINE FLUSH Last Admin: 04/07/19 05:49 Dose: 10 ml Documented by: STROKE Vital Signs/Narrative: Vital Signs Temp Pulse Resp BP Pulse Ox 04/07/19 14:41 97.7 F L 77 16 126/80 H 04/07/19 11:24 74 18 93 Medical Necessity - Tobacco Use Smoking Status: Former smoker Assessment/Plan All Active Problems (Last Reviewed 03/30/19 @ 10:46 by Anahi Roberts) Bronchiectasis (Acute) root canal (Resolved) History of back surgery (Resolved) H/O foot surgery (Resolved) Disease of tonsils and adenoids (Resolved) Herpes simplex (Acute) Conjunctivitis (Acute) The patient is a 64 year old F with history of bronchiectasis with multiple ER visit, last one in February 2019 and on multiple antibiotics came to ED with progressive worsening of shortness of breath, productive cough and low-grade fevers since February 2019. Patient finished Levaquin and 6 weeks of tapering dose of prednisone in recent past since February 2019. Patient still gets easily short of breath on mild exertion and even at rest along with yellowish-green sputum. Patient repositioning pressure at home and it was about 100 ?F. She complained of left lower back pain around the 11th and 12th rib on deep cough. [] In ED,No fever was found. Heart rate 77. Pulse ox 96% on 2 L of oxygen and respiratory rate 20/min. 1. Acute exacerbation of bronchiectasis with suspicion of bibasilar pneumonia: Patient is being admitted on MedSurg floor. Blood cultures x2, sputum culture, urinary antigens for Legionella and Streptococcus, respiratory panel and MRSA nasal screen ordered. On bronchodilator every 4 hourly, IV antibiotic vancomycin and Zosyn, incentive spirometry, IV Solu-Medrol, and chest physiotherapy. Pulmonary consult requested from ER physician. CT chest in March 2019 which reported peribronchial thickening with minimal scattered micronodular and groundglass opacities with mild cylindrical bronchiectasis changes. Mild paraseptal emphysema at the apices. Apical scarring. Chest x-ray done in ER shows mild bibasilar pulmonary infiltrates and subsegmental atelectasis. 04/08: Sputum culture growing alphahemolytic strep. Urinary antigens for Legionella esophagus are negative. Respiratory panel negative. Blood cultures x2 are pending. DC vancomycin continue Zosyn. 2 Asthmatic bronchitis and bronchiectasis and thoracolumbar scoliosis: Patient had several rounds of antibiotics since February 2019. She has completed 6 weeks of prednisone also. The patient is awaiting for approval of dupilumab. Patient last PFT was in February 2018; reported within normal limit. No large airways obstructive ventilatory defect with FEV1 of 92% therefore PFT not consistent with COPD. 3. Other chronic comorbidities include neuropathic pain, herpes simplex, lumbar disc disease and thoracolumbar spine. Patient has L4-S1 fusion surgery in January 2017. PT and OT ordered. DVT prophylaxis: On Lovenox 40 Mg subcu daily. Laboratory Results 04/06/19 06:53: WBC 15.4 H, RBC 3.87 L, Hgb 12.5, Hct 38.1, MCV 98.4, MCH 32.3 H, MCHC 32.8, RDW Std Deviation 48.2 H, RDW Coeff of Tarun 13.3, Plt Count 311, MPV 9.7, Immature Gran % (Auto) 0.900, Neut % (Auto) 75.2 H, Lymph % (Auto) 14.0 L, [place] % (Auto) 7.7, Eos % (Auto) 1.7, Baso % (Auto) 0.5, Absolute Neuts (auto) 11.5 H, Absolute Lymphs (auto) 2.15, Nucleated RBC % 0 04/06/19 06:53: Sodium 137, Potassium 4.2, Chloride 105, Carbon Dioxide 25.0, Anion Gap 7, BUN 28 H, Creatinine 0.83, Estim Creat Clear Calc 58.35, Est GFR (MDRD) Af Amer 88, Est GFR (MDRD) Non-Af 73, BUN/Creatinine Ratio 33.7 H, Glucose 109 H, Calcium 8.5, Total Bilirubin 0.80, AST 15, ALT 22, Alkaline Phosphatase 106, Total Protein 7.9, Albumin 3.1 L, Globulin 4.8 H, Albumin/Globulin Ratio 0.6 L 04/06/19 08:35: Lactic Acid 1.4 Microbiology Past 72 Hours 04/06/19 16:06 Sputum, Expectorated/Coughed Gram Stain - Final 04/06/19 16:06 Sputum, Expectorated/Coughed Respiratory Culture - Preliminary Alpha hemolytic organism 04/06/19 10:50 Mucosa - Nose Respiratory Panel (PCR) - Final 04/06/19 12:15 Urine, Clean Catch Streptococcus pneumoniae Antigen (M - Final 04/06/19 12:15 Urine, Clean Catch Legionella Antigen - Final Laboratory Results 04/06/19 13:15: MRSA (PCR) Negative 04/07/19 05:00: WBC 18.7 H, RBC 3.19 L, Hgb 10.5 L, Hct 32.0 L, MCV 100.3 H, MCH 32.9 H, MCHC 32.8, RDW Std Deviation 50.2 H, RDW Coeff of Tarun 13.4, Plt Count 270, MPV 9.7, Immature Gran % (Auto) 1.200 H, Neut % (Auto) 92.1 H, Lymph % (Auto) 5.2 L, [place] % (Auto) 1.3, Eos % (Auto) 0.0, Baso % (Auto) 0.2, Absolute Neuts (auto) 17.3 H, Absolute Lymphs (auto) 0.97, Nucleated RBC % 0 04/07/19 05:00: Sodium 144, Potassium 4.1, Chloride 113 H, Carbon Dioxide 25.0, Anion Gap 6, BUN 22 H, Creatinine 0.77, Estim Creat Clear Calc 62.90, Est GFR (MDRD) Af Amer 96, Est GFR (MDRD) Non-Af 79, BUN/Creatinine Ratio 28.4 H, Glucose 156 H, Calcium 8.4 L, TSH 0.35 L Clinical Impression(s) from Imaging Studies Chest X-Ray 12/03/19 06:53 IMPRESSION: New mild bibasilar pulmonary infiltrates and subsegmental atelectasis likely pneumonia Stable mild compression deformities of upper to mid thoracic spine with kyphosis and generalized osteopenia Stable S-shaped thoracolumbar spinal scoliosis, fixation rods and screws within the upper lumbar spine seen on the very inferior field of view Code Visit Inpatient E&M: 80914 Subs Hosp L2
[2019-04-07 21:42] LABS: Vancomycin, Trough Level 6.3 ug/mL (5.0-15.0)
[2019-04-07] MEDS: Baclofen 10 MG Tablet PO (21:51)
[2019-04-08] VITALS (10 sets, daily range): BP systolic 119–127; BP diastolic 66–79; PULSE 76–95; RESP 14–18; TEMP 36.7–36.9; O2SAT 91–96
[2019-04-08] MEDS: hydrOXYzine PAM 25 MG Capsule PO ×2 (00:22→22:55)
[2019-04-08] MEDS: Acetaminophen 325 MG Tablet 650 MG PO (02:19)
[2019-04-08 05:31] LABS: Absolute Lymphocyte Count 1.37 X10^3/uL (0.83-4.51); Absolute Neutrophil Count 21.6 X10^3/uL (2.0-7.7); Basophil# 0.03 X10^3/uL; Basophil% 0.1 % (0-1); Hematocrit 32.9 % (37-47); Hemoglobin 10.6 g/dL (12.0-15.0); Lymphocyte # 1.37 X10^3/ul (4.0); Lymphocyte % 5.7 % (19-41); Mean Corp Hgb Conc 32.2 g/dL (32-36); Mean Corpuscular Hgb 32.2 pg (27.0-32.0); Monocyte# 0.58 X10^3/uL; Monocyte% 2.4 % (0-10); NRBC Flagged by Analyzer 0 % (0-5); Neutrophil # 21.63 X10^3/uL (2.7-7.7); Neutrophil % 89.8 % (47-70); POSITIVE DIFFERENTIAL YES; Platelet Count 303 K/mm3 (150-450); RBC Distribution Width CV 13.8 % (11.6-14.6); RBC Distribution Width SD 50.7 fl (35.1-43.9); Red Blood Count 3.29 M/mm3 (4.2-5.4); White Blood Count 24.1 K/mm3 (4.4-11.0)
--- NOTE | 2019-04-08 05:32 | CPS ---
pt declined vest therapy last night. RN aware
[2019-04-08 05:41] LABS: Differential Indicated SCAN CRITERIA MET
[2019-04-08 06:02] LABS: Anion Gap 5 (5-15); BUN 32 mg/dL (7-18); BUN/Creat Ratio 38.9 RATIO (10-20); Calcium,Total 8.5 mg/dL (8.5-10.1); Chloride 112 mmol/L (98-107); Creatinine, Serum 0.82 mg/dL (0.55-1.02); EST Glomerular Filtration Rate 74 mL/min (>60); Est Glom Filt Rate - Afr Amer 90 mL/min (>60); Estimated Creatinine Clearance 59.06 ml/min; Glucose 130 mg/dL (74-106); Potassium 4.1 mmol/L (3.5-5.1); Sodium Level 143 mmol/L (136-145)
[2019-04-08] MEDS: Gabapentin 300 MG Capsule PO (09:48)
[2019-04-08] MEDS: Diclofenac 75 MG Tablet PO ×2 (09:49→16:00)
[2019-04-08] MEDS: Enoxaparin 40 MG/0.4 ML Syringe SC (09:49)
[2019-04-08] MEDS: DULoxetine Hcl 60 MG Capsule PO (09:49)
[2019-04-08] MEDS: Magnesium Oxide 400 MG Tablet PO (09:49)
[2019-04-08] MEDS: Famotidine 20 MG Tablet PO ×2 (09:50→21:15)
[2019-04-08] MEDS: guaiFENesin 1,200 MG Tablet 1200 MG PO ×2 (09:50→21:15)
[2019-04-08] MEDS: Acyclovir 200 MG Capsule 400 MG PO (09:50)
[2019-04-08] MEDS: Pantoprazole Sodium 20 MG Tablet PO (09:50)
--- NOTE | 2019-04-08 10:33 | NURSING ---
Reassessed pulse ox after the removal of oxygen. 94% on room air. Stephanie LOBO
--- NOTE | 2019-04-08 11:11 | PCM.PN.PUL ---
Subjective: The patient was seen and examined at the bedside this morning. Events from the last 24 hours have been reviewed. The patient is currently afebrile, hemodynamically stable and maintaining appropriate oxygen saturations on room air. The patient continues to have a cough and stated that she was short of breath with ambulation to the bathroom. Objective: The patient's most recent lab work, culture data and imaging studies have all been personally reviewed. Expectorated sputum preliminary revealed alphahemolytic organism. - Physical Exam Vitals/I&O's: Vital Signs Temp Pulse Resp BP Pulse Ox 98.3 F 95 16 127/77 H 94 04/08/19 09:07 04/08/19 10:55 04/08/19 10:55 04/08/19 09:07 04/08/19 10:55 Oxygen Flow Rate (L/min) 2 Oxygen Delivery Method Room Air Weight: 142 lb 6.698 oz Body Mass Index (BMI) 24.0 Intake and Output for Last 24 Hours 04/06/19 04/07/19 04/08/19 23:59 23:59 23:59 Intake Total 2190 / 2190 1400 / 2000 950 / 950 Balance 2190 / 2190 1400 / 2000 950 / 950 General: Alert, Cooperative, No apparent distress HEENT: Atraumatic, PERRLA, Normocephalic Oral: No Gingival or Mucosal Lesions/ Ulcerations Neck: Supple, No Nodes, Trachea Midline Lungs: No rhonchi, No wheeze, No rales, Diminished, - - No conversational dyspnea or accessory muscle use Cardiovascular: Regular rate, Regular Rhythm, Normal S1, Normal S2, No murmurs Abdomen: Bowel Sounds Present, Soft, Non Tender Extremities: No clubbing, No cyanosis, No edema Skin: No breakdown Musculoskeletal: No Tenderness to Palpation of Joints or Extremities Lymphatic: No Cervical, Supraclavicular, or Inguinal Adenopathy Neurological: Neuro grossly intact Psych/Mental Status: Normal Affect, Appropriate Labs (Last 48 Hours) 04/06/19 04/07/19 04/07/19 13:15 05:00 05:00 WBC 18.7 H RBC 3.19 L Hgb 10.5 L Hct 32.0 L MCV 100.3 H MCH 32.9 H MCHC 32.8 RDW Std Deviation 50.2 H RDW Coeff of Tarun 13.4 Plt Count 270 MPV 9.7 Immature Gran % (Auto) 1.200 H Neut % (Auto) 92.1 H Lymph % (Auto) 5.2 L [place] % (Auto) 1.3 Eos % (Auto) 0.0 Baso % (Auto) 0.2 Absolute Neuts (auto) 17.3 H Absolute Lymphs (auto) 0.97 Nucleated RBC % 0 Sodium 144 Potassium 4.1 Chloride 113 H Carbon Dioxide 25.0 Anion Gap 6 BUN 22 H Creatinine 0.77 Estim Creat Clear Calc 62.90 Est GFR (MDRD) Af Amer 96 Est GFR (MDRD) Non-Af 79 BUN/Creatinine Ratio 28.4 H Glucose 156 H Calcium 8.4 L TSH 0.35 L Vancomycin Trough MRSA (PCR) Negative 04/07/19 04/08/19 04/08/19 20:30 05:05 05:05 WBC 24.1 H RBC 3.29 L Hgb 10.6 L Hct 32.9 L MCV 100.0 H MCH 32.2 H MCHC 32.2 RDW Std Deviation 50.7 H RDW Coeff of Tarun 13.8 Plt Count 303 MPV 10.0 Immature Gran % (Auto) 2.000 H Neut % (Auto) 89.8 H Lymph % (Auto) 5.7 L [place] % (Auto) 2.4 Eos % (Auto) 0.0 Baso % (Auto) 0.1 Absolute Neuts (auto) 21.6 H Absolute Lymphs (auto) 1.37 Nucleated RBC % 0 Sodium 143 Potassium 4.1 Chloride 112 H Carbon Dioxide 26.0 Anion Gap 5 BUN 32 H Creatinine 0.82 Estim Creat Clear Calc 59.06 Est GFR (MDRD) Af Amer 90 Est GFR (MDRD) Non-Af 74 BUN/Creatinine Ratio 38.9 H Glucose 130 H Calcium 8.5 TSH Vancomycin Trough 6.3 MRSA (PCR) Microbiology 04/06/19 16:06 Sputum, Expectorated/Coughed Gram Stain - Final 04/06/19 16:06 Sputum, Expectorated/Coughed Respiratory Culture - Preliminary Alpha hemolytic organism 04/06/19 08:25 Blood Culture (Wb) - No Site/Description Given Blood Culture - Preliminary No growth in 48 hours. 04/06/19 08:35 Blood Culture (Wb) - No Site/Description Given Blood Culture - Preliminary No growth in 48 hours. 04/06/19 10:50 Mucosa - Nose Respiratory Panel (PCR) - Final 04/06/19 12:15 Urine, Clean Catch Streptococcus pneumoniae Antigen (M - Final 04/06/19 12:15 Urine, Clean Catch Legionella Antigen - Final Clinical Impression(s) from Imaging Studies Chest X-Ray 04/06/19 06:53 IMPRESSION: New mild bibasilar pulmonary infiltrates and subsegmental atelectasis likely pneumonia Stable mild compression deformities of upper to mid thoracic spine with kyphosis and generalized osteopenia Stable S-shaped thoracolumbar spinal scoliosis, fixation rods and screws within the upper lumbar spine seen on the very inferior field of view Electronically Signed: Luis Carlos Griffith, at 7:57 EST Tel , Service support , Current Medications Acetaminophen (Tylenol) 650 mg PO Q6H PRN PRN PRN Reason: Pain Score 1-3/Temp > 100.7 F Last Admin: 04/08/19 02:19 Dose: 650 mg Documented by: Acyclovir (Zovirax) 400 mg PO Q12 [facility] Last Admin: 04/08/19 09:50 Dose: 400 mg Documented by: Albuterol Sulfate (Ventolin Aerosols) 2.5 mg INHALATION Q2H PRN PRN PRN Reason: SOB/Wheezing Albuterol/Ipratropium (Duoneb) 3 ml INHALATION Q4HWA.RT [facility] Last Admin: 04/08/19 07:30 Dose: Not Given Documented by: Artificial Tears (Thera Tears) 1 each EACH EYE Q1H PRN PRN Reason: DRY EYES Last Admin: 04/06/19 17:13 Dose: 1 each Documented by: Baclofen (Lioresal) 10 mg PO QHS [facility] Last Admin: 04/07/19 21:51 Dose: 10 mg Documented by: Dextrose (D50w Syringe) 0 gm IV X1 PRN; Protocol PRN Reason: Hypoglycemia Diclofenac Sodium (Voltaren) 75 mg PO 0800,1500 [facility] Last Admin: 04/08/19 09:49 Dose: 75 mg Documented by: Duloxetine HCl (Cymbalta) 60 mg PO DAILY [facility] Last Admin: 04/08/19 09:49 Dose: 60 mg Documented by: Enoxaparin Sodium (Lovenox) 40 mg SC DAILY [facility] Last Admin: 04/08/19 09:49 Dose: 40 mg Documented by: Famotidine (Pepcid) 20 mg PO BID [facility] Last Admin: 04/08/19 09:50 Dose: 20 mg Documented by: Gabapentin (Neurontin) 600 mg PO QHS [facility] Last Admin: 04/07/19 21:51 Dose: 600 mg Documented by: Gabapentin (Neurontin) 300 mg PO DAILY@0800 [facility] Last Admin: 04/08/19 09:48 Dose: 300 mg Documented by: Gabapentin (Neurontin) 600 mg PO LUNCH [facility] Last Admin: 04/07/19 12:58 Dose: 600 mg Documented by: Glucagon () 1 mg IM .X1 PRN PRN Reason: Hypoglycemia Guaifenesin (Mucinex) 1,200 mg PO BID [facility] Last Admin: 04/08/19 09:50 Dose: 1,200 mg Documented by: Hydroxyzine Pamoate (Vistaril Pamoate Capsule) 25 mg PO Q8H PRN PRN PRN Reason: ANXIETY Last Admin: 04/08/19 00:22 Dose: 25 mg Documented by: Sodium Chloride () 250 mls @ 15 mls/hr IV .[id number] PRN PRN Reason: Saline Flush Last Infusion: 04/07/19 05:49 Dose: 0 mls/hr Documented by: Piperacillin Sod/Tazobactam (Sod 3.375 gm/ Sodium Chloride) 50 mls @ 12.5 mls/hr IV Q8 [facility] Last Admin: 04/08/19 06:16 Dose: 12.5 mls/hr Documented by: Magnesium Oxide (Mag-Ox 400) 400 mg PO DAILY [facility] Last Admin: 04/08/19 09:49 Dose: 400 mg Documented by: Methylprednisolone (Solu-Medrol) 40 mg IV Q8 [facility] Last Admin: 04/08/19 06:16 Dose: 40 mg Documented by: Nitroglycerin (Nitrostat) 0.4 mg SUBLINGUAL Q5M PRN PRN Reason: CARDIAC/CHEST PAIN Ondansetron HCl (Zofran) 4 mg IV Q8H PRN PRN PRN Reason: NAUSEA/VOMITING Oxycodone HCl (Oxyir) 5 mg PO BID PRN PRN PRN Reason: Pain Score 1-10/10 Last Admin: 04/07/19 11:08 Dose: 5 mg Documented by: Pantoprazole Sodium (Protonix) 20 mg PO DAILY [facility] Last Admin: 04/08/19 09:50 Dose: 20 mg Documented by: Potassium Chloride (K-Dur) 10 meq PO DAILY@0800 [facility] Last Admin: 04/08/19 09:49 Dose: 10 meq Documented by: Prochlorperazine Edisylate (Compazine Iv) 5 mg IV Q4H PRN PRN PRN Reason: Breakthrough Nausea/Vomiting Senna/Docusate Sodium (Senokot-S, Petra-Colace) 2 tablet PO BID PRN PRN PRN Reason: Constipation Sodium Chloride () 10 - 40 ml IV UD PRN PRN Reason: SALINE FLUSH Last Admin: 04/07/19 05:49 Dose: 10 ml Documented by: Medical Necessity - Tobacco Use Smoking Status: Former smoker Assessment/Plan All Active Problems (Last Reviewed 03/30/19 @ 10:46 by Anahi Roberts) Bronchiectasis (Acute) root canal (Resolved) History of back surgery (Resolved) H/O foot surgery (Resolved) Disease of tonsils and adenoids (Resolved) Herpes simplex (Acute) Conjunctivitis (Acute) RECOMMENDATIONS: 1. Continue steroids, bronchodilators and antimicrobials. 2. Continue aggressive bronchopulmonary hygiene. 3. Encourage incentive spirometer use and mobilize patient as tolerated. 4. Perform walking oximetry study prior to consideration for discharge home. 5. Outpatient follow-up within 2 weeks of discharge is recommended. IMPRESSIONS: 1. Acute exacerbation of bronchiectasis with left lower lobe pneumonia and failure of outpatient therapy Patient treated with doxycycline and Levaquin therapy as an outpatient, in addition to to prednisone burst. Patient is compliant with Acapella therapy, but continued to decline. Patient has cultures currently growing substantial alphahemolytic organism. Treatment with healthcare associated antibiotics would be appropriate. Continue bronchodilators and steroids. Previous pulmonary function tests have not been suggestive of advanced airway obstruction. 2. Thoracolumbar scoliosis/osteopenia/chronic pain syndrome Patient with recent back surgery to help with her alignment. Patient does have significant pain at baseline and this may limit her ability to achieve appropriate pulmonary toileting. Continue to encourage aggressive bronchopulmonary hygiene. 3. Neuropathic pain/HSV/history of constipation Complicates care, management, recovery and prognosis. DVT and GI prophylaxis appropriate. This note was generated with [employer] dictation software. It may contain incorrect words, spelling, and punctuation that were not noted in checking the note before signing. Code Visit Inpatient E&M: 89493 Subs Hosp L2
[2019-04-08] MEDS: Ipratropium/Albuterol Sulfate 3 ML AMPUL.NEB INHALATION ×3 (11:12→20:50)
[2019-04-08] MEDS: Gabapentin 600 MG Tablet PO ×2 (12:40→22:53)
[2019-04-08] MEDS: Furosemide 20 MG/2 ML VIAL IV (13:52)
[2019-04-08] MEDS: 0.9% Saline Lock 10 ML Syringe IV ×2 (13:53→21:16)
--- NOTE | 2019-04-08 16:28 | PN_ITS ---
Reason for Visit: Bronchiectasis exacerbation Objective: Patient did not had any fever or chills. Shortness of breath has improved. Preliminary sputum culture growing alphahemolytic Streptococcus. Vitals/I&O's: Vital Signs Temp Pulse Resp BP Pulse Ox 98.5 F 83 16 123/79 H 93 04/08/19 15:53 04/08/19 15:53 04/08/19 15:53 04/08/19 15:53 04/08/19 15:53 Oxygen Flow Rate (L/min) 2 Oxygen Delivery Method Room Air Weight: 142 lb 6.698 oz Body Mass Index (BMI) 24.0 Intake and Output for Last 24 Hours 04/06/19 04/07/19 04/08/19 23:59 23:59 23:59 Intake Total 2189 / 1999 1340 / 1340 Balance 2189 / 1999 1340 / 1340 General: Alert, Oriented x3, Cooperative HEENT: Atraumatic, PERRLA, EOMI, Normocephalic Neck: Supple, No JVD, Negative Carotid Bruits Lungs: Diminished - Air entry diminished diffusing all lung martinez, Rhonchi, - - Thoracolumbar scoliosis Cardiovascular: Regular rate, Regular Rhythm, Normal S1, Normal S2, No murmurs Abdomen: Bowel Sounds Present, Soft, Non Tender, Non-Distended Extremities: Capillary Refill Less than 3 Seconds, Edema - Patient had mild edema secondary to prednisone Skin: No rashes, No breakdown Musculoskeletal: No Tenderness to Palpation of Joints or Extremities Neurological: Cranial nerves II-XII grossly intact Psych/Mental Status: Normal Affect, Appropriate Microbiology Past 72 Hours 04/06/19 16:06 Sputum, Expectorated/Coughed Gram Stain - Final 04/06/19 16:06 Sputum, Expectorated/Coughed Respiratory Culture - Preliminary Alpha hemolytic organism 04/06/19 08:25 Blood Culture (Wb) - No Site/Description Given Blood Culture - Preliminary No growth in 48 hours. 04/06/19 08:35 Blood Culture (Wb) - No Site/Description Given Blood Culture - Preliminary No growth in 48 hours. 04/06/19 10:50 Mucosa - Nose Respiratory Panel (PCR) - Final 04/06/19 12:15 Urine, Clean Catch Streptococcus pneumoniae Antigen (M - Final 04/06/19 12:15 Urine, Clean Catch Legionella Antigen - Final Laboratory Results 04/07/19 20:30: Vancomycin Trough 6.3 04/08/19 05:05: WBC 24.1 H, RBC 3.29 L, Hgb 10.6 L, Hct 32.9 L, MCV 100.0 H, MCH 32.2 H, MCHC 32.2, RDW Std Deviation 50.7 H, RDW Coeff of Tarun 13.8, Plt Count 303, MPV 10.0, Immature Gran % (Auto) 2.000 H, Neut % (Auto) 89.8 H, Lymph % (Auto) 5.7 L, [place] % (Auto) 2.4, Eos % (Auto) 0.0, Baso % (Auto) 0.1, Absolute Neuts (auto) 21.6 H, Absolute Lymphs (auto) 1.37, Nucleated RBC % 0 04/08/19 05:05: Sodium 143, Potassium 4.1, Chloride 112 H, Carbon Dioxide 26.0, Anion Gap 5, BUN 32 H, Creatinine 0.82, Estim Creat Clear Calc 59.06, Est GFR (MDRD) Af Amer 90, Est GFR (MDRD) Non-Af 74, BUN/Creatinine Ratio 38.9 H, Glucose 130 H, Calcium 8.5 Current Medications Acetaminophen (Tylenol) 650 mg PO Q6H PRN PRN PRN Reason: Pain Score 1-3/Temp > 100.7 F Last Admin: 04/08/19 02:19 Dose: 650 mg Documented by: Acyclovir (Zovirax) 400 mg PO Q12 [facility] Last Admin: 04/08/19 09:50 Dose: 400 mg Documented by: Albuterol Sulfate (Ventolin Aerosols) 2.5 mg INHALATION Q2H PRN PRN PRN Reason: SOB/Wheezing Albuterol/Ipratropium (Duoneb) 3 ml INHALATION Q4HWA.RT [facility] Last Admin: 04/08/19 15:12 Dose: 3 ml Documented by: Artificial Tears (Thera Tears) 1 each EACH EYE Q1H PRN PRN Reason: DRY EYES Last Admin: 04/06/19 17:13 Dose: 1 each Documented by: Baclofen (Lioresal) 10 mg PO QHS [facility] Last Admin: 04/07/19 21:51 Dose: 10 mg Documented by: Dextrose (D50w Syringe) 0 gm IV X1 PRN; Protocol PRN Reason: Hypoglycemia Diclofenac Sodium (Voltaren) 75 mg PO 0800,1500 [facility] Last Admin: 04/08/19 16:00 Dose: 75 mg Documented by: Duloxetine HCl (Cymbalta) 60 mg PO DAILY [facility] Last Admin: 04/08/19 09:49 Dose: 60 mg Documented by: Enoxaparin Sodium (Lovenox) 40 mg SC DAILY [facility] Last Admin: 04/08/19 09:49 Dose: 40 mg Documented by: Famotidine (Pepcid) 20 mg PO BID [facility] Last Admin: 04/08/19 09:50 Dose: 20 mg Documented by: Furosemide (Lasix) 20 mg IV DAILY PRN PRN PRN Reason: leg edema Last Admin: 04/08/19 13:52 Dose: 20 mg Documented by: Gabapentin (Neurontin) 600 mg PO QHS [facility] Last Admin: 04/07/19 21:51 Dose: 600 mg Documented by: Gabapentin (Neurontin) 300 mg PO DAILY@0800 [facility] Last Admin: 04/08/19 09:48 Dose: 300 mg Documented by: Gabapentin (Neurontin) 600 mg PO LUNCH [facility] Last Admin: 04/08/19 12:40 Dose: 600 mg Documented by: Glucagon () 1 mg IM .X1 PRN PRN Reason: Hypoglycemia Guaifenesin (Mucinex) 1,200 mg PO BID [facility] Last Admin: 04/08/19 09:50 Dose: 1,200 mg Documented by: Hydroxyzine Pamoate (Vistaril Pamoate Capsule) 25 mg PO Q8H PRN PRN PRN Reason: ANXIETY Last Admin: 04/08/19 00:22 Dose: 25 mg Documented by: Sodium Chloride () 250 mls @ 15 mls/hr IV .[id number] PRN PRN Reason: Saline Flush Last Infusion: 04/07/19 05:49 Dose: 0 mls/hr Documented by: Piperacillin Sod/Tazobactam (Sod 3.375 gm/ Sodium Chloride) 50 mls @ 12.5 mls/hr IV Q8 [facility] Last Admin: 04/08/19 13:52 Dose: 12.5 mls/hr Documented by: Magnesium Oxide (Mag-Ox 400) 400 mg PO DAILY [facility] Last Admin: 04/08/19 09:49 Dose: 400 mg Documented by: Methylprednisolone (Solu-Medrol) 40 mg IV Q8 [facility] Last Admin: 04/08/19 13:52 Dose: 40 mg Documented by: Nitroglycerin (Nitrostat) 0.4 mg SUBLINGUAL Q5M PRN PRN Reason: CARDIAC/CHEST PAIN Ondansetron HCl (Zofran) 4 mg IV Q8H PRN PRN PRN Reason: NAUSEA/VOMITING Oxycodone HCl (Oxyir) 5 mg PO BID PRN PRN PRN Reason: Pain Score 1-10/10 Last Admin: 04/07/19 11:08 Dose: 5 mg Documented by: Pantoprazole Sodium (Protonix) 20 mg PO DAILY [facility] Last Admin: 04/08/19 09:50 Dose: 20 mg Documented by: Potassium Chloride (K-Dur) 10 meq PO DAILY@0800 [facility] Last Admin: 04/08/19 09:49 Dose: 10 meq Documented by: Prochlorperazine Edisylate (Compazine Iv) 5 mg IV Q4H PRN PRN PRN Reason: Breakthrough Nausea/Vomiting Senna/Docusate Sodium (Senokot-S, Petra-Colace) 2 tablet PO BID PRN PRN PRN Reason: Constipation Sodium Chloride () 10 - 40 ml IV UD PRN PRN Reason: SALINE FLUSH Last Admin: 04/08/19 13:53 Dose: 10 ml Documented by: STROKE Vital Signs/Narrative: Vital Signs Temp Pulse Resp BP Pulse Ox 04/08/19 15:53 98.5 F 83 16 123/79 H 93 04/08/19 15:12 78 18 95 Medical Necessity - Tobacco Use Smoking Status: Former smoker Assessment/Plan All Active Problems (Last Reviewed 03/30/19 @ 10:46 by Anahi Roberts) Bronchiectasis (Acute) root canal (Resolved) History of back surgery (Resolved) H/O foot surgery (Resolved) Disease of tonsils and adenoids (Resolved) Herpes simplex (Acute) Conjunctivitis (Acute) The patient is a 64 year old F with history of bronchiectasis with multiple ER visit, last one in February 2019 and on multiple antibiotics came to ED with progressive worsening of shortness of breath, productive cough and low-grade fevers since February 2019. Patient finished Levaquin and 6 weeks of tapering dose of prednisone in recent past since February 2019. Patient still gets easily short of breath on mild exertion and even at rest along with yellowish-green sputum. Patient repositioning pressure at home and it was about 100 ?F. She complained of left lower back pain around the 11th and 12th rib on deep cough. [] In ED,No fever was found. Heart rate 77. Pulse ox 96% on 2 L of oxygen and respiratory rate 20/min. 1. Acute exacerbation of bronchiectasis with suspicion of bibasilar pneumonia: [facility]. Blood cultures x2, sputum culture, urinary antigens for Legionella and Streptococcus, respiratory panel and MRSA nasal screen ordered. On bronchodilator every 4 hourly, IV antibiotic vancomycin and Zosyn, incentive spirometry, IV Solu-Medrol, and chest physiotherapy. Pulmonary consult requested from ER physician. CT chest in March 2019 which reported peribronchial thickening with minimal scattered micronodular and groundglass opacities with mild cylindrical bronchiectasis changes. Mild paraseptal emphysema at the apices. Apical scarring. Chest x-ray done in ER shows mild bibasilar pulmonary infiltrates and subsegmental atelectasis. 12: Sputum culture growing alphahemolytic strep. Urinary antigens for Legionella esophagus are negative. Respiratory panel negative. Blood cultures x2 are pending. DC vancomycin continue Zosyn. 12\5: Preliminary sputum culture final to Streptococcus. Continue Zosyn. On IV Solu-Medrol. Patient had mild leg edema mostly fluid retention secondary to Solu-Medrol. Lasix 20 mg IV as needed ordered for leg edema. Overall patient looks euvolemic. 2 Asthmatic bronchitis and bronchiectasis and thoracolumbar scoliosis: Patient had several rounds of antibiotics since February 2019. She has completed 6 weeks of prednisone also. The patient is awaiting for approval of dupilumab. Patient last PFT was in February 2018; reported within normal limit. No large airways obstructive ventilatory defect with FEV1 of 92% therefore PFT not consistent with COPD. 3. Other chronic comorbidities include neuropathic pain, herpes simplex, lumbar disc disease and thoracolumbar spine. Patient has L4-S1 fusion surgery in January 2017. PT and OT ordered. DVT prophylaxis: On Lovenox 40 Mg subcu daily. Microbiology Past 72 Hours 04/06/19 16:06 Sputum, Expectorated/Coughed Gram Stain - Final 04/06/19 16:06 Sputum, Expectorated/Coughed Respiratory Culture - Preliminary Alpha hemolytic organism 04/06/19 08:25 Blood Culture (Wb) - No Site/Description Given Blood Culture - Preliminary No growth in 48 hours. 04/06/19 08:35 Blood Culture (Wb) - No Site/Description Given Blood Culture - Preliminary No growth in 48 hours. 04/06/19 10:50 Mucosa - Nose Respiratory Panel (PCR) - Final 04/06/19 12:15 Urine, Clean Catch Streptococcus pneumoniae Antigen (M - Final 04/06/19 12:15 Urine, Clean Catch Legionella Antigen - Final Laboratory Results 04/07/19 20:30: Vancomycin Trough 6.3 04/08/19 05:05: WBC 24.1 H, RBC 3.29 L, Hgb 10.6 L, Hct 32.9 L, MCV 100.0 H, MCH 32.2 H, MCHC 32.2, RDW Std Deviation 50.7 H, RDW Coeff of Tarun 13.8, Plt Count 303, MPV 10.0, Immature Gran % (Auto) 2.000 H, Neut % (Auto) 89.8 H, Lymph % (Auto) 5.7 L, [place] % (Auto) 2.4, Eos % (Auto) 0.0, Baso % (Auto) 0.1, Absolute Neuts (auto) 21.6 H, Absolute Lymphs (auto) 1.37, Nucleated RBC % 0 04/08/19 05:05: Sodium 143, Potassium 4.1, Chloride 112 H, Carbon Dioxide 26.0, Anion Gap 5, BUN 32 H, Creatinine 0.82, Estim Creat Clear Calc 59.06, Est GFR (MDRD) Af Amer 90, Est GFR (MDRD) Non-Af 74, BUN/Creatinine Ratio 38.9 H, Glucose 130 H, Calcium 8.5 Clinical Impression(s) from Imaging Studies Chest X-Ray 04/06/19 06:53 IMPRESSION: New mild bibasilar pulmonary infiltrates and subsegmental atelectasis likely pneumonia Stable mild compression deformities of upper to mid thoracic spine with kyphosis and generalized osteopenia Stable S-shaped thoracolumbar spinal scoliosis, fixation rods and screws within the upper lumbar spine seen on the very inferior field of view Code Visit Inpatient E&M: 41841 Subs Hosp L2
[2019-04-08] MEDS: Baclofen 10 MG Tablet PO (22:53)
[2019-04-09] VITALS (8 sets, daily range): BP systolic 123–145; BP diastolic 67–87; PULSE 71–89; RESP 16–20; TEMP 36.2–36.8; O2SAT 92–98
[2019-04-09 05:32] LABS: Absolute Lymphocyte Count 2.46 X10^3/uL (0.83-4.51); Absolute Neutrophil Count 13.2 X10^3/uL (2.0-7.7); Basophil# 0.06 X10^3/uL; Basophil% 0.4 % (0-1); Eosinophil# 0.01 X10^3/uL; Eosinophils% 0.1 % (0-5); Hematocrit 33.2 % (37-47); Hemoglobin 10.9 g/dL (12.0-15.0); Lymphocyte # 2.46 X10^3/ul (4.0); Lymphocyte % 14.4 % (19-41); Mean Corp Hgb Conc 32.8 g/dL (32-36); Mean Corpuscular Hgb 32.5 pg (27.0-32.0); Mean Corpuscular Volume 99.1 fL (81-99); Mean Platelet Vol. 9.6 fl (6.2-12.0); Monocyte# 0.89 X10^3/uL; Monocyte% 5.2 % (0-10); NRBC Flagged by Analyzer 0 % (0-5); Neutrophil # 13.22 X10^3/uL (2.7-7.7); Platelet Count 300 K/mm3 (150-450); RBC Distribution Width CV 13.6 % (11.6-14.6); RBC Distribution Width SD 49.4 fl (35.1-43.9); Red Blood Count 3.35 M/mm3 (4.2-5.4); White Blood Count 17.1 K/mm3 (4.4-11.0)
[2019-04-09 05:46] LABS: Anion Gap 3 (5-15); BUN 34 mg/dL (7-18); BUN/Creat Ratio 44.2 RATIO (10-20); Calcium,Total 8.4 mg/dL (8.5-10.1); Chloride 111 mmol/L (98-107); Creatinine, Serum 0.77 mg/dL (0.55-1.02); EST Glomerular Filtration Rate 80 mL/min (>60); Est Glom Filt Rate - Afr Amer 97 mL/min (>60); Glucose 91 mg/dL (74-106); Potassium 3.8 mmol/L (3.5-5.1); Sodium Level 142 mmol/L (136-145)
[2019-04-09] MEDS: 0.9% Saline Lock 10 ML Syringe IV ×2 (06:38→22:36)
[2019-04-09] MEDS: Ipratropium/Albuterol Sulfate 3 ML AMPUL.NEB INHALATION ×3 (07:28→14:35)
[2019-04-09] MEDS: Acyclovir 200 MG Capsule 400 MG PO (08:48)
[2019-04-09] MEDS: Diclofenac 75 MG Tablet PO ×2 (08:48→13:44)
[2019-04-09] MEDS: Magnesium Oxide 400 MG Tablet PO (08:48)
[2019-04-09] MEDS: Pantoprazole Sodium 20 MG Tablet PO (08:48)
[2019-04-09] MEDS: predniSONE 20 MG Tablet 40 MG PO (08:49)
[2019-04-09] MEDS: guaiFENesin 1,200 MG Tablet 1200 MG PO ×2 (08:49→22:37)
[2019-04-09] MEDS: Famotidine 20 MG Tablet PO ×2 (08:49→22:36)
[2019-04-09] MEDS: DULoxetine Hcl 60 MG Capsule PO (08:49)
[2019-04-09] MEDS: Enoxaparin 40 MG/0.4 ML Syringe SC (08:50)
[2019-04-09] MEDS: Gabapentin 300 MG Capsule PO (08:50)
[2019-04-09] MEDS: Gabapentin 600 MG Tablet PO ×2 (12:31→22:36)
--- NOTE | 2019-04-09 12:47 | PN_ITS ---
Subjective: The patient was seen and examined at the bedside this morning. Events from the last 24 hours have been reviewed. The patient is currently afebrile, hemodynamically stable and maintaining appropriate oxygen saturations on room air. The patient continues to report the presence of a nonproductive cough. Objective: The patient's most recent lab work, culture data and imaging studies have all been personally reviewed. Expectorated sputum preliminary revealed alphahemolytic organism. - Physical Exam Vitals/I&O's: Vital Signs Temp Pulse Resp BP Pulse Ox 97.2 F L 82 17 129/67 H 95 04/09/19 10:00 04/09/19 11:35 04/09/19 11:35 04/09/19 10:00 04/09/19 10:00 Oxygen Flow Rate (L/min) 2 Oxygen Delivery Method Room Air Weight: 141 lb 12.116 oz Body Mass Index (BMI) 24.0 Intake and Output for Last 24 Hours 04/07/19 04/08/19 04/09/19 23:59 23:59 23:59 Intake Total 1399 1390 / 1690 1020.00 / 1020.00 Balance 1400 1999 1390 / 1690 1020.00 / 1020.00 General: Alert, Cooperative, No apparent distress, - - Sitting in bedside recliner. HEENT: Atraumatic, PERRLA, Normocephalic Oral: No Gingival or Mucosal Lesions/ Ulcerations Neck: Supple, No Nodes, Trachea Midline Lungs: Diminished, - - Frequent coughing with deep inhalation. Cardiovascular: Regular rate, Regular Rhythm, Normal S1, Normal S2 Abdomen: Bowel Sounds Present, Soft, Non Tender Extremities: No clubbing, No cyanosis, No edema Skin: No breakdown Musculoskeletal: No Tenderness to Palpation of Joints or Extremities Lymphatic: No Cervical, Supraclavicular, or Inguinal Adenopathy Neurological: Cranial nerves II-XII grossly intact, Neuro grossly intact Psych/Mental Status: Normal Affect, Appropriate Labs (Last 48 Hours) 04/07/19 04/08/19 04/08/19 20:30 05:05 05:05 WBC 24.1 H RBC 3.29 L Hgb 10.6 L Hct 32.9 L MCV 100.0 H MCH 32.2 H MCHC 32.2 RDW Std Deviation 50.7 H RDW Coeff of Tarun 13.8 Plt Count 303 MPV 10.0 Immature Gran % (Auto) 2.000 H Neut % (Auto) 89.8 H Lymph % (Auto) 5.7 L [place] % (Auto) 2.4 Eos % (Auto) 0.0 Baso % (Auto) 0.1 Absolute Neuts (auto) 21.6 H Absolute Lymphs (auto) 1.37 Nucleated RBC % 0 Sodium 143 Potassium 4.1 Chloride 112 H Carbon Dioxide 26.0 Anion Gap 5 BUN 32 H Creatinine 0.82 Estim Creat Clear Calc 59.06 Est GFR (MDRD) Af Amer 90 Est GFR (MDRD) Non-Af 74 BUN/Creatinine Ratio 38.9 H Glucose 130 H Calcium 8.5 Vancomycin Trough 6.3 04/09/19 04/09/19 05:10 05:10 WBC 17.1 H RBC 3.35 L Hgb 10.9 L Hct 33.2 L MCV 99.1 H MCH 32.5 H MCHC 32.8 RDW Std Deviation 49.4 H RDW Coeff of [place]un 13.6 Plt Count 300 MPV 9.6 Immature Gran % (Auto) 2.900 H Neut % (Auto) 77.0 H Lymph % (Auto) 14.4 L [place] % (Auto) 5.2 Eos % (Auto) 0.1 Baso % (Auto) 0.4 Absolute Neuts (auto) 13.2 H Absolute Lymphs (auto) 2.46 Nucleated RBC % 0 Sodium 142 Potassium 3.8 Chloride 111 H Carbon Dioxide 28.0 Anion Gap 3 L BUN 34 H Creatinine 0.77 Estim Creat Clear Calc 62.90 Est GFR (MDRD) Af Amer 97 Est GFR (MDRD) Non-Af 80 BUN/Creatinine Ratio 44.2 H Glucose 91 Calcium 8.4 L Vancomycin Trough Microbiology 04/06/19 16:06 Sputum, Expectorated/Coughed Gram Stain - Final 04/06/19 16:06 Sputum, Expectorated/Coughed Respiratory Culture - Preli minary Alpha hemolytic organism 04/06/19 08:25 Blood Culture (Wb) - No Site/Description Given Blood Culture - Preliminary No growth in 48 hours. 04/06/19 08:35 Blood Culture (Wb) - No Site/Description Given Blood Culture - Preliminary No growth in 48 hours. Clinical Impression(s) from Imaging Studies Chest X-Ray 04/06/19 06:53 IMPRESSION: New mild bibasilar pulmonary infiltrates and subsegmental atelectasis likely pneumonia Stable mild compression deformities of upper to mid thoracic spine with kyphosis and generalized osteopenia Stable S-shaped thoracolumbar spinal scoliosis, fixation rods and screws within the upper lumbar spine seen on the very inferior field of view Electronically Signed: Luis Carlos Griffith, at 7:57 EST Tel , Service support , Current Medications Acetaminophen (Tylenol) 650 mg PO Q6H PRN PRN PRN Reason: Pain Score 1-3/Temp > 100.7 F Last Admin: 04/08/19 02:19 Dose: 650 mg Documented by: Acyclovir (Zovirax) 400 mg PO Q12 [facility] Last Admin: 04/09/19 08:48 Dose: 400 mg Documented by: Albuterol Sulfate (Ventolin Aerosols) 2.5 mg INHALATION Q2H PRN PRN PRN Reason: SOB/Wheezing Albuterol/Ipratropium (Duoneb) 3 ml INHALATION Q4HWA.RT [facility] Last Admin: 04/09/19 11:33 Dose: 3 ml Documented by: Artificial Tears (Thera Tears) 1 each EACH EYE Q1H PRN PRN Reason: DRY EYES Last Admin: 04/06/19 17:13 Dose: 1 each Documented by: Baclofen (Lioresal) 10 mg PO QHS [facility] Last Admin: 04/08/19 22:53 Dose: 10 mg Documented by: Dextrose (D50w Syringe) 0 gm IV X1 PRN; Protocol PRN Reason: Hypoglycemia Diclofenac Sodium (Voltaren) 75 mg PO 0800,1500 [facility] Last Admin: 04/09/19 08:48 Dose: 75 mg Documented by: Duloxetine HCl (Cymbalta) 60 mg PO DAILY [facility] Last Admin: 04/09/19 08:49 Dose: 60 mg Documented by: Enoxaparin Sodium (Lovenox) 40 mg SC DAILY [facility] Last Admin: 04/09/19 08:50 Dose: 40 mg Documented by: Famotidine (Pepcid) 20 mg PO BID [facility] Last Admin: 04/09/19 08:49 Dose: 20 mg Documented by: Furosemide (Lasix) 20 mg IV DAILY PRN PRN PRN Reason: leg edema Last Admin: 04/08/19 13:52 Dose: 20 mg Documented by: Gabapentin (Neurontin) 600 mg PO QHS [facility] Last Admin: 04/08/19 22:53 Dose: 600 mg Documented by: Gabapentin (Neurontin) 300 mg PO DAILY@0800 [facility] Last Admin: 04/09/19 08:50 Dose: 300 mg Documented by: Gabapentin (Neurontin) 600 mg PO LUNCH [facility] Last Admin: 04/09/19 12:31 Dose: 600 mg Documented by: Glucagon () 1 mg IM .X1 PRN PRN Reason: Hypoglycemia Guaifenesin (Mucinex) 1,200 mg PO BID [facility] Last Admin: 04/09/19 08:49 Dose: 1,200 mg Documented by: Hydroxyzine Pamoate (Vistaril Pamoate Capsule) 25 mg PO Q8H PRN PRN PRN Reason: ANXIETY Last Admin: 04/08/19 22:55 Dose: 25 mg Documented by: Sodium Chloride () 250 mls @ 15 mls/hr IV .[id number] PRN PRN Reason: Saline Flush Last Infusion: 04/09/19 11:45 Dose: 0 mls/hr Documented by: Piperacillin Sod/Tazobactam (Sod 3.375 gm/ Sodium Chloride) 50 mls @ 12.5 mls/hr IV Q8 [facility] Last Infusion: 04/09/19 10:38 Dose: Infused Documented by: Magnesium Oxide (Mag-Ox 400) 400 mg PO DAILY [facility] Last Admin: 04/09/19 08:48 Dose: 400 mg Documented by: Melatonin (Melatonin) 3 mg PO QHS [facility] Last Admin: 04/09/19 00:27 Dose: Not Given Documented by: Nitroglycerin (Nitrostat) 0.4 mg SUBLINGUAL Q5M PRN PRN Reason: CARDIAC/CHEST PAIN Ondansetron HCl (Zofran) 4 mg IV Q8H PRN PRN PRN Reason: NAUSEA/VOMITING Oxycodone HCl (Oxyir) 5 mg PO BID PRN PRN PRN Reason: Pain Score 1-10/10 Last Admin: 04/07/19 11:08 Dose: 5 mg Documented by: Pantoprazole Sodium (Protonix) 20 mg PO DAILY [facility] Last Admin: 04/09/19 08:48 Dose: 20 mg Documented by: Potassium Chloride (K-Dur) 10 meq PO DAILY@0800 [facility] Last Admin: 04/09/19 08:50 Dose: 10 meq Documented by: Prednisone () 40 mg PO DAILY@0800 [facility] Last Admin: 04/09/19 08:49 Dose: 40 mg Documented by: Prochlorperazine Edisylate (Compazine Iv) 5 mg IV Q4H PRN PRN PRN Reason: Breakthrough Nausea/Vomiting Senna/Docusate Sodium (Senokot-S, Petra-Colace) 2 tablet PO BID PRN PRN PRN Reason: Constipation Sodium Chloride () 10 - 40 ml IV UD PRN PRN Reason: SALINE FLUSH Last Admin: 04/09/19 06:38 Dose: 10 ml Documented by: Medical Necessity - Tobacco Use Smoking Status: Former smoker Assessment/Plan All Active Problems (Last Reviewed 03/30/19 @ 10:46 by Anahi Roberts) Bronchiectasis (Acute) root canal (Resolved) History of back surgery (Resolved) H/O foot surgery (Resolved) Disease of tonsils and adenoids (Resolved) Herpes simplex (Acute) Conjunctivitis (Acute) RECOMMENDATIONS: 1. Continue steroids, bronchodilators and antimicrobials. 2. Continue aggressive bronchopulmonary hygiene. 3. Encourage incentive spirometer use and mobilize patient as tolerated. 4. Perform walking oximetry study prior to consideration for discharge home. 5. Outpatient follow-up within 2 weeks of discharge is recommended. IMPRESSIONS: 1. Acute exacerbation of bronchiectasis with left lower lobe pneumonia and failure of outpatient therapy The patient was treated with doxycycline and Levaquin therapy as an outpatient, in addition to to prednisone burst. Patient is compliant with Acapella therapy, but continued to decline. Patient has cultures currently growing substantial alphahemolytic organism. Treatment with healthcare associated antibiotics would be appropriate. Continue bronchodilators and steroids. Previous pulmonary function tests have not been suggestive of advanced airway obstruction. 2. Thoracolumbar scoliosis/osteopenia/chronic pain syndrome Patient with recent back surgery to help with her alignment. Patient does have significant pain at baseline and this may limit her ability to achieve appropriate pulmonary toileting. Continue to encourage aggressive bronchopulmonary hygiene. 3. Neuropathic pain/HSV/history of constipation Complicates care, management, recovery and prognosis. DVT and GI prophylaxis appropriate. This note was generated with [employer]views[employer] software. It may contain incorrect words, spelling, and punctuation that were not noted in checking the note before signing. Code Visit Inpatient E&M: 76603 Subs Hosp L2
--- NOTE | 2019-04-09 17:34 | PN_ITS ---
Subjective: Day #4 Zosyn, Vanco has been discontinued The patient is a 64-year-old female with a past medical history of asthma, nephrolithiasis, lung nodule, bronchiectasis and COPD who presented to the emergency department at [facility] on 04/06/2019 complaining of cough, shortness of breath and weakness for the preceding 2 months. She had been on multiple antibiotics and had a 6 weeks course of tapering prednisone. She complained of yellowish-green sputum and fevers at home. She states the fevers have been present intermittently since February. Vital signs of presentation to the emergency room were temperature 98.6, pulse rate 90, blood pressure 142/76, respiratory rate 20 and she was 88% on room air and 91% on a 2 L nasal cannula. White blood cell count was elevated at 15.4 with 75% neutrophils. Hemoglobin and platelets were within normal limits and the MCV was normal. BMP was remarkable for an elevated BUN at 28 with a creatinine of 0.83. Chest x-ray was reported as new mild bibasilar pulmonary infiltrates and subsegmental atelectasis likely secondary to pneumonia. She has stable mild compression deformities of the upper to mid thoracic spine with kyphosis and generalized osteopenia. She has a stable S-shaped thoracolumbar spinal scoliosis with fixation rods and screws present. She was admitted to the hospit al with a diagnosis of acute exacerbation of bronchiectasis/COPD secondary to bibasilar pneumonia. She was started on aerosolized bronchodilators, vancomycin and Zosyn, IV Solu-Medrol, incentive spirometry and PEP therapy. Pulmonary medicine was consulted. She was seen in consultation by Dr. Rubens Terrazas who had recently seen her in the office. Sputum culture 1 week prior to admission showed no pathologic organisms. A CT scan done in March 2019 showed some bronchiectasis but no acute infiltrates. Events of the past 24 hours of been reviewed. Afebrile since admission Vital signs are stable Currently maintaining an oxygen saturation of 92% on room air with a respiratory rate of 16. All lab was personally reviewed. The white blood cell count remains elevated but she has been on Solu-Medrol. Hemoglobin is stable and is 10.9 today. Platelets are within normal limits. BMP is remarkable for an elevated BUN at 34 with a creatinine of 0.77 which is stable. TSH was low at 0.35. Streptococcal and Legionella antigens in the urine were negative. Respiratory panel was negative. Blood cultures are negative. Respiratory culture is positive for 3+ alphahemolytic organism. She has been transitioned to prednisone. I reviewed Dr. Jarek Mao's note from today she is c/o insomnia - Melatonin is not helping. - Physical Exam Vitals/I&O's: Vital Signs Temp Pulse Resp BP Pulse Ox 98.1 F 87 16 135/79 H 92 04/09/19 16:00 04/09/19 16:00 04/09/19 16:00 04/09/19 16:00 04/09/19 16:00 Oxygen Flow Rate (L/min) 2 Oxygen Delivery Method Room Air Weight: 141 lb 12.116 oz Body Mass Index (BMI) 24.0 Intake and Output for Last 24 Hours 04/07/19 04/08/19 04/09/19 23:59 23:59 23:59 Intake Total 1399 1390 / 1690 1020.00 / 1020.00 Balance 1400 1999 1390 / 1690 1020.00 / 1020.00 General: Alert, Oriented x3, Cooperative, No apparent distress, Well developed, Well nourished HEENT: Atraumatic, PERRLA, Normocephalic Oral: Moist Mucosa Neck: Supple, No Nodes, Trachea Midline Lungs: No wheeze, Diminished, - - scattered coarse rales. no wheezing. coughing when she talks a lot Cardiovascular: Regular rate, Regular Rhythm, Normal S1, Normal S2, No Gallop Abdomen: Bowel Sounds Present, Soft, Non Tender, Non-Distended Extremities: No clubbing, No cyanosis, No edema Skin: No rashes Neurological: Cranial nerves II-XII grossly intact, Neuro grossly intact Psych/Mental Status: Normal Affect, Appropriate Microbiology Past 72 Hours 04/06/19 16:06 Sputum, Expectorated/Coughed Gram Stain - Final 04/06/19 16:06 Sputum, Expectorated/Coughed Respiratory Culture - Preliminary Alpha hemolytic organism 04/06/19 08:25 Blood Culture (Wb) - No Site/Description Given Blood Culture - Preliminary No growth in 48 hours. 04/06/19 08:35 Blood Culture (Wb) - No Site/Description Given Blood Culture - Preliminary No growth in 48 hours. 04/06/19 10:50 Mucosa - Nose Respiratory Panel (PCR) - Final 04/06/19 12:15 Urine, Clean Catch Streptococcus pneumoniae Antigen (M - Final 04/06/19 12:15 Urine, Clean Catch Legionella Antigen - Final Laboratory Results 04/09/19 05:10: WBC 17.1 H, RBC 3.35 L, Hgb 10.9 L, Hct 33.2 L, MCV 99.1 H, MCH 32.5 H, MCHC 32.8, RDW Std Deviation 49.4 H, RDW Coeff of Tarun 13.6, Plt Count 300, MPV 9.6, Immature Gran % (Auto) 2.900 H, Neut % (Auto) 77.0 H, Lymph % (Auto) 14.4 L, [place] % (Auto) 5.2, Eos % (Auto) 0.1, Baso % (Auto) 0.4, Absolute Neuts (auto) 13.2 H, Absolute Lymphs (auto) 2.46, Nucleated RBC % 0 04/09/19 05:10: Sodium 142, Potassium 3.8, Chloride 111 H, Carbon Dioxide 28.0, Anion Gap 3 L, BUN 34 H, Creatinine 0.77, Estim Creat Clear Calc 62.90, Est GFR (MDRD) Af Amer 97, Est GFR (MDRD) Non-Af 80, BUN/Creatinine Ratio 44.2 H, Glucose 91, Calcium 8.4 L Current Medications Acetaminophen (Tylenol) 650 mg PO Q6H PRN PRN PRN Reason: Pain Score 1-3/Temp > 100.7 F Last Admin: 04/08/19 02:19 Dose: 650 mg Documented by: Acyclovir (Zovirax) 400 mg PO Q12 [facility] Last Admin: 04/09/19 08:48 Dose: 400 mg Documented by: Albuterol Sulfate (Ventolin Aerosols) 2.5 mg INHALATION Q2H PRN PRN PRN Reason: SOB/Wheezing Albuterol/Ipratropium (Duoneb) 3 ml INHALATION Q4HWA.RT [facility] Last Admin: 04/09/19 14:35 Dose: 3 ml Documented by: Artificial Tears (Thera Tears) 1 each EACH EYE Q1H PRN PRN Reason: DRY EYES Last Admin: 04/06/19 17:13 Dose: 1 each Documented by: Baclofen (Lioresal) 10 mg PO QHS [facility] Last Admin: 04/08/19 22:53 Dose: 10 mg Documented by: Dextrose (D50w Syringe) 0 gm IV X1 PRN; Protocol PRN Reason: Hypoglycemia Diclofenac Sodium (Voltaren) 75 mg PO 0800,1500 [facility] Last Admin: 04/09/19 13:44 Dose: 75 mg Documented by: Duloxetine HCl (Cymbalta) 60 mg PO DAILY [facility] Last Admin: 04/09/19 08:49 Dose: 60 mg Documented by: Enoxaparin Sodium (Lovenox) 40 mg SC DAILY [facility] Last Admin: 04/09/19 08:50 Dose: 40 mg Documented by: Famotidine (Pepcid) 20 mg PO BID [facility] Last Admin: 04/09/19 08:49 Dose: 20 mg Documented by: Furosemide (Lasix) 20 mg IV DAILY PRN PRN PRN Reason: leg edema Last Admin: 04/08/19 13:52 Dose: 20 mg Documented by: Gabapentin (Neurontin) 600 mg PO QHS [facility] Last Admin: 04/08/19 22:53 Dose: 600 mg Documented by: Gabapentin (Neurontin) 300 mg PO DAILY@0800 [facility] Last Admin: 04/09/19 08:50 Dose: 300 mg Documented by: Gabapentin (Neurontin) 600 mg PO LUNCH [facility] Last Admin: 04/09/19 12:31 Dose: 600 mg Documented by: Glucagon () 1 mg IM .X1 PRN PRN Reason: Hypoglycemia Guaifenesin (Mucinex) 1,200 mg PO BID [facility] Last Admin: 04/09/19 08:49 Dose: 1,200 mg Documented by: Hydroxyzine Pamoate (Vistaril Pamoate Capsule) 25 mg PO Q8H PRN PRN PRN Reason: ANXIETY Last Admin: 04/08/19 22:55 Dose: 25 mg Documented by: Sodium Chloride () 250 mls @ 15 mls/hr IV .[id number] PRN PRN Reason: Saline Flush Last Infusion: 04/09/19 11:45 Dose: 0 mls/hr Documented by: Piperacillin Sod/Tazobactam (Sod 3.375 gm/ Sodium Chloride) 50 mls @ 12.5 mls/hr IV Q8 [facility] Last Admin: 04/09/19 13:43 Dose: 12.5 mls/hr Documented by: Magnesium Oxide (Mag-Ox 400) 400 mg PO DAILY [facility] Last Admin: 04/09/19 08:48 Dose: 400 mg Documented by: Melatonin (Melatonin) 3 mg PO QHS [facility] Last Admin: 04/09/19 00:27 Dose: Not Given Documented by: Nitroglycerin (Nitrostat) 0.4 mg SUBLINGUAL Q5M PRN PRN Reason: CARDIAC/CHEST PAIN Ondansetron HCl (Zofran) 4 mg IV Q8H PRN PRN PRN Reason: NAUSEA/VOMITING Oxycodone HCl (Oxyir) 5 mg PO BID PRN PRN PRN Reason: Pain Score 1-10/10 Last Admin: 04/07/19 11:08 Dose: 5 mg Documented by: Pantoprazole Sodium (Protonix) 20 mg PO DAILY [facility] Last Admin: 04/09/19 08:48 Dose: 20 mg Documented by: Potassium Chloride (K-Dur) 10 meq PO DAILY@0800 [facility] Last Admin: 04/09/19 08:50 Dose: 10 meq Documented by: Prednisone () 40 mg PO DAILY@0800 [facility] Last Admin: 04/09/19 08:49 Dose: 40 mg Documented by: Prochlorperazine Edisylate (Compazine Iv) 5 mg IV Q4H PRN PRN PRN Reason: Breakthrough Nausea/Vomiting Senna/Docusate Sodium (Senokot-S, Petra-Colace) 2 tablet PO BID PRN PRN PRN Reason: Constipation Sodium Chloride () 10 - 40 ml IV UD PRN PRN Reason: SALINE FLUSH Last Admin: 04/09/19 06:38 Dose: 10 ml Documented by: Medical Necessity - Tobacco Use Smoking Status: Former smoker Assessment/Plan All Active Problems (Last Reviewed 03/30/19 @ 10:46 by Anahi Roberts) Bronchiectasis (Acute) root canal (Resolved) History of back surgery (Resolved) H/O foot surgery (Resolved) Disease of tonsils and adenoids (Resolved) Herpes simplex (Acute) Conjunctivitis (Acute) Impressions 1. Acute exacerbation of bronchiectasis with left lower lobe pneumonia and failure of outpatient therapy. 2. Bronchiectasis 3. Thoracolumbar scoliosis-history of back surgeries x3 in the past with fixation rods present. This likely contributes to some restrictive lung disease secondary to inability to expand the chest. 4. insomnia - likely due to high dose steroids. start Trazodone 100 mg at HS continue Zosyn ambulatory pulse ox on RA in the AM to determine need for O2 at DC Code Visit Inpatient E&M: 16350 Subs Hosp L2
[2019-04-09 18:56] LABS: Free T3 1.3 pg/mL (2.18-3.98); T4 Free Direct 0.91 ng/dL (0.76-1.46)
[2019-04-09] MEDS: Baclofen 10 MG Tablet PO (22:36)
[2019-04-09] MEDS: traZODone 100 MG Tablet PO (22:36)
[2019-04-10 04:00] VITALS: BP 144/73; PULSE 80; RESP 16; TEMP 36.6; O2SAT 94
[2019-04-10 07:39] VITALS: PULSE 94; RESP 18; O2SAT 90
[2019-04-10] MEDS: Ipratropium/Albuterol Sulfate 3 ML AMPUL.NEB INHALATION (07:39)
--- NOTE | 2019-04-10 07:43 | PCM.PN.PUL ---
Subjective: The patient was seen and examined at the bedside this morning. Events from the last 24 hours have been reviewed. The patient is currently afebrile, hemodynamically stable and maintaining appropriate oxygen saturations on room air. The patient does report feeling better from a respiratory perspective this morning. Her cough continues, but is likely chronic and related to her underlying bronchiectasis. Objective: The patient's most recent lab work, culture data and imaging studies have all been personally reviewed. Finalized sputum culture appears to be normal respiratory charlie. - Physical Exam Vitals/I&O's: Vital Signs Temp Pulse Resp BP Pulse Ox 97.9 F 80 16 144/73 H 94 04/10/19 04:00 04/10/19 04:00 04/10/19 04:00 04/10/19 04:00 04/10/19 04:00 Oxygen Flow Rate (L/min) 2 Oxygen Delivery Method Room Air Weight: 141 lb 1.533 oz Body Mass Index (BMI) 24.0 Intake and Output for Last 24 Hours 04/08/19 04/09/19 04/10/19 23:59 23:59 23:59 Intake Total 1390 / 1690 1310.00 / 1310.00 50 / 50 Balance 1390 / 1690 1310.00 / 1310.00 50 / 50 General: Alert, Oriented x3, Cooperative, No apparent distress HEENT: Atraumatic, PERRLA, Normocephalic Oral: No Gingival or Mucosal Lesions/ Ulcerations Neck: Supple, No Nodes, Trachea Midline Lungs: No rhonchi, No wheeze, No rales, Diminished Cardiovascular: Regular rate, Regular Rhythm, Normal S1, Normal S2, No murmurs Abdomen: Bowel Sounds Present, Soft, Non Tender Extremities: No clubbing, No cyanosis, No edema Skin: No breakdown Musculoskeletal: No Tenderness to Palpation of Joints or Extremities, No Muscle Wasting Lymphatic: No Cervical, Supraclavicular, or Inguinal Adenopathy Neurological: Cranial nerves II-XII grossly intact, Neuro grossly intact Psych/Mental Status: Normal Affect, Appropriate Labs (Last 48 Hours) 04/09/19 04/09/19 04/09/19 05:10 05:10 05:10 WBC 17.1 H RBC 3.35 L Hgb 10.9 L Hct 33.2 L MCV 99.1 H MCH 32.5 H MCHC 32.8 RDW Std Deviation 49.4 H RDW Coeff of Tarun 13.6 Plt Count 300 MPV 9.6 Immature Gran % (Auto) 2.900 H Neut % (Auto) 77.0 H Lymph % (Auto) 14.4 L [place] % (Auto) 5.2 Eos % (Auto) 0.1 Baso % (Auto) 0.4 Absolute Neuts (auto) 13.2 H Absolute Lymphs (auto) 2.46 Nucleated RBC % 0 Sodium 142 Potassium 3.8 Chloride 111 H Carbon Dioxide 28.0 Anion Gap 3 L BUN 34 H Creatinine 0.77 Estim Creat Clear Calc 62.90 Est GFR (MDRD) Af Amer 97 Est GFR (MDRD) Non-Af 80 BUN/Creatinine Ratio 44.2 H Glucose 91 Calcium 8.4 L Free T4 0.91 Free T3 pg/dL 1.3 L Microbiology 04/06/19 16:06 Sputum, Expectorated/Coughed Gram Stain - Final 04/06/19 16:06 Sputum, Expectorated/Coughed Respiratory Culture - Final 04/06/19 08:25 Blood Culture (Wb) - No Site/Description Given Blood Culture - Preliminary No growth in 48 hours. 04/06/19 08:35 Blood Culture (Wb) - No Site/Description Given Blood Culture - Preliminary No growth in 48 hours. Clinical Impression(s) from Imaging Studies Chest X-Ray 04/06/19 06:53 IMPRESSION: New mild bibasilar pulmonary infiltrates and subsegmental atelectasis likely pneumonia Stable mild compression deformities of upper to mid thoracic spine with kyphosis and generalized osteopenia Stable S-shaped thoracolumbar spinal scoliosis, fixation rods and screws within the upper lumbar spine seen on the very inferior field of view Electronically Signed: Luis Carlos Griffith, at 7:57 EST Tel , Service support , Current Medications Acetaminophen (Tylenol) 650 mg PO Q6H PRN PRN PRN Reason: Pain Score 1-3/Temp > 100.7 F Last Admin: 04/08/19 02:19 Dose: 650 mg Documented by: Acyclovir (Zovirax) 400 mg PO Q12 [facility] Last Admin: 12/06/19 22:37 Dose: Not Given Documented by: Albuterol Sulfate (Ventolin Aerosols) 2.5 mg INHALATION Q2H PRN PRN PRN Reason: SOB/Wheezing Albuterol/Ipratropium (Duoneb) 3 ml INHALATION Q4HWA.RT [facility] Last Admin: 04/10/19 07:39 Dose: 3 ml Documented by: Artificial Tears (Thera Tears) 1 each EACH EYE Q1H PRN PRN Reason: DRY EYES Last Admin: 04/06/19 17:13 Dose: 1 each Documented by: Baclofen (Lioresal) 10 mg PO QHS [facility] Last Admin: 04/09/19 22:36 Dose: 10 mg Documented by: Dextrose (D50w Syringe) 0 gm IV X1 PRN; Protocol PRN Reason: Hypoglycemia Diclofenac Sodium (Voltaren) 75 mg PO 0800,1500 [facility] Last Admin: 04/09/19 13:44 Dose: 75 mg Documented by: Duloxetine HCl (Cymbalta) 60 mg PO DAILY [facility] Last Admin: 04/09/19 08:49 Dose: 60 mg Documented by: Enoxaparin Sodium (Lovenox) 40 mg SC DAILY [facility] Last Admin: 04/09/19 08:50 Dose: 40 mg Documented by: Famotidine (Pepcid) 20 mg PO BID [facility] Last Admin: 04/09/19 22:36 Dose: 20 mg Documented by: Furosemide (Lasix) 20 mg IV DAILY PRN PRN PRN Reason: leg edema Last Admin: 04/08/19 13:52 Dose: 20 mg Documented by: Gabapentin (Neurontin) 600 mg PO QHS [facility] Last Admin: 04/09/19 22:36 Dose: 600 mg Documented by: Gabapentin (Neurontin) 300 mg PO DAILY@0800 [facility] Last Admin: 04/09/19 08:50 Dose: 300 mg Documented by: Gabapentin (Neurontin) 600 mg PO LUNCH [facility] Last Admin: 04/09/19 12:31 Dose: 600 mg Documented by: Glucagon () 1 mg IM .X1 PRN PRN Reason: Hypoglycemia Guaifenesin (Mucinex) 1,200 mg PO BID [facility] Last Admin: 04/09/19 22:37 Dose: 1,200 mg Documented by: Hydroxyzine Pamoate (Vistaril Pamoate Capsule) 25 mg PO Q8H PRN PRN PRN Reason: ANXIETY Last Admin: 04/08/19 22:55 Dose: 25 mg Documented by: Sodium Chloride () 250 mls @ 15 mls/hr IV .[id number] PRN PRN Reason: Saline Flush Last Infusion: 04/10/19 02:39 Dose: 15 mls/hr Documented by: Piperacillin Sod/Tazobactam (Sod 3.375 gm/ Sodium Chloride) 50 mls @ 12.5 mls/hr IV Q8 [facility] Last Admin: 04/10/19 03:43 Dose: Not Given Documented by: Magnesium Oxide (Mag-Ox 400) 400 mg PO DAILY [facility] Last Admin: 04/09/19 08:48 Dose: 400 mg Documented by: Nitroglycerin (Nitrostat) 0.4 mg SUBLINGUAL Q5M PRN PRN Reason: CARDIAC/CHEST PAIN Ondansetron HCl (Zofran) 4 mg IV Q8H PRN PRN PRN Reason: NAUSEA/VOMITING Oxycodone HCl (Oxyir) 5 mg PO BID PRN PRN PRN Reason: Pain Score 1-10/10 Last Admin: 04/07/19 11:08 Dose: 5 mg Documented by: Pantoprazole Sodium (Protonix) 20 mg PO DAILY [facility] Last Admin: 04/09/19 08:48 Dose: 20 mg Documented by: Potassium Chloride (K-Dur) 10 meq PO DAILY@0800 [facility] Last Admin: 04/09/19 08:50 Dose: 10 meq Documented by: Prednisone () 40 mg PO DAILY@0800 [facility] Last Admin: 04/09/19 08:49 Dose: 40 mg Documented by: Prochlorperazine Edisylate (Compazine Iv) 5 mg IV Q4H PRN PRN PRN Reason: Breakthrough Nausea/Vomiting Senna/Docusate Sodium (Senokot-S, Petra-Colace) 2 tablet PO BID PRN PRN PRN Reason: Constipation Sodium Chloride () 10 - 40 ml IV UD PRN PRN Reason: SALINE FLUSH Last Admin: 04/09/19 22:36 Dose: 10 ml Documented by: Trazodone HCl (Desyrel) 100 mg PO QHS [facility] Last Admin: 04/09/19 22:36 Dose: 100 mg Documented by: Medical Necessity - Tobacco Use Smoking Status: Former smoker Assessment/Plan All Active Problems (Last Reviewed 03/30/19 @ 10:46 by Anahi Roberts) Bronchiectasis (Acute) root canal (Resolved) History of back surgery (Resolved) H/O foot surgery (Resolved) Disease of tonsils and adenoids (Resolved) Herpes simplex (Acute) Conjunctivitis (Acute) RECOMMENDATIONS: 1. Continue bronchodilators and prednisone as ordered. Plan for steroid taper at discharge. 2. Discontinue Zosyn and transition to Levaquin to finish out a 7-day treatment course of antibiotics. 3. Continue aggressive bronchopulmonary hygiene. 4. Encourage incentive spirometer use and mobilize patient as tolerated. 5. Perform walking oximetry study prior to consideration for discharge home. 6. Outpatient follow-up within 2 weeks of discharge is recommended. IMPRESSIONS: 1. Acute exacerbation of bronchiectasis with left lower lobe pneumonia and failure of outpatient therapy The patient was admitted to the hospital after failed outpatient treatment. The patient was compliant with Acapella therapy, but continued to decline. The patient's sputum culture only appears to be normal respiratory charlie. She is currently maintaining appropriate oxygen saturations on room air. Accordingly, her Zosyn will be discontinued and she can be placed on Levaquin to finish out a 7-day treatment course of antibiotics. Recommend continuing bronchodilators and prednisone. At discharge, recommend a prednisone taper. Perform walking oximetry study prior to consideration for discharge home. The patient should follow-up in the pulmonary medicine clinic within 2 weeks of her discharge from the hospital. 2. Thoracolumbar scoliosis/osteopenia/chronic pain syndrome Patient with recent back surgery to help with her alignment. Patient does have significant pain at baseline and this may limit her ability to achieve appropriate pulmonary toileting. Continue to encourage aggressive bronchopulmonary hygiene. 3. Neuropathic pain/HSV/history of constipation Complicates care, management, recovery and prognosis. DVT and GI prophylaxis appropriate. This note was generated with [employer] dictation software. It may contain incorrect words, spelling, and punctuation that were not noted in checking the note before signing. Code Visit Inpatient E&M: 66735 Subs Hosp L2
[2019-04-10 08:26] VITALS: BP 127/85; PULSE 90; RESP 19; TEMP 36.4; O2SAT 92
[2019-04-10] MEDS: Diclofenac 75 MG Tablet PO (08:46)
[2019-04-10] MEDS: Gabapentin 300 MG Capsule PO (08:46)
[2019-04-10] MEDS: predniSONE 20 MG Tablet 40 MG PO (08:46)
[2019-04-10] MEDS: Magnesium Oxide 400 MG Tablet PO (08:47)
[2019-04-10] MEDS: Pantoprazole Sodium 20 MG Tablet PO (08:47)
[2019-04-10] MEDS: Famotidine 20 MG Tablet PO (08:47)
[2019-04-10] MEDS: guaiFENesin 1,200 MG Tablet 1200 MG PO (08:47)
[2019-04-10] MEDS: DULoxetine Hcl 60 MG Capsule PO (08:47)
[2019-04-10] MEDS: Acyclovir 200 MG Capsule 400 MG PO (08:48)
[2019-04-10] MEDS: Enoxaparin 40 MG/0.4 ML Syringe SC (08:49)
[2019-04-10] MEDS: levoFLOXacin 750 MG Tablet PO (09:42)
[2019-04-10 09:49] VITALS: O2SAT 92; O2SAT 94
[2019-04-10 09:55] VITALS: O2SAT 92
--- NOTE | 2019-04-10 11:44 | DCINST_ITS ---
You will use the following diet at home:: Regular Your food should be the consistency of: Regular Your liquids should be the consistency of: Regular/Thin Discharge Activity: Return to Normal Activity, May Not Drive Allergies/Adverse Reactions: Allergies bacitracin Adverse Reaction (Verified 04/06/19 06:51) Itching chlorpheniramine [From Dristan Cold] Adverse Reaction (Verified 04/06/19 06:51) Other loratadine [From Claritin-D] Adverse Reaction (Verified 04/06/19 06:51) Other morphine Adverse Reaction (Verified 04/06/19 06:51) Nausea phenylephrine [From Dristan Cold] Adverse Reaction (Verified 04/06/19 06:51) Other pseudoephedrine [From Claritin-D] Adverse Reaction (Verified 04/06/19 06:51) Other tramadol Adverse Reaction (Verified 04/06/19 06:51) Vomiting novacaine Adverse Reaction (Uncoded 04/06/19 06:51) Unknown Medications to take at Discharge Hydroxyzine HCl 25 mg PO Q8 PRN 08/21/16 Valacyclovir HCl [Valacyclovir] 500 mg PO DAILY 08/21/16 Baclofen 10 mg PO QHS 05/25/17 Cod Liver Oil 1 ea PO DAILY 05/25/17 Oxycodone [Oxyir] 5 mg PO BID PRN PRN 05/25/17 Potassium Citrate [Urocit-K] 10 meq PO DAILY 05/25/17 Phenazopyridine HCl [Pyridium] 200 mg PO BID PRN PRN #10 tab 05/26/17 gabapentin 300 mg capsule 300 mg PO DAILY cap 03/02/18 gabapentin 300 mg capsule 600 mg PO LUNCH cap 03/02/18 Gabapentin [Gralise] 600 mg PO QHS 03/04/18 diclofenac sodium 75 mg tablet,delayed release 75 mg PO 0800,1500 05/01/18 ipratropium 20 mcg-albuterol 100 mcg/actuation mist for inhalation 1 puff INHALATION Q6H PRN 05/01/18 magnesium 200 mg tablet 400 mg PO DAILY tab 05/01/18 Budesonide/Formoterol 160/4.5 [Symbicort 160/4.5 Mcg Inhaler (SP)] 2 puff INHALATION BID 04/06/19 CycloSPORINE Ophthalmic [Restasis Ophthalmic] 1 drp EACH EYE BID 04/06/19 Dupilumab [Dupixent] 300 mg SUBCUT Q2W 04/06/19 Esomeprazole Mag Trihydrate [Nexium] 10 mg PO DAILY 04/06/19 Duloxetine Hcl [Cymbalta] 60 mg PO DAILY 04/07/19 Guaifenesin [Mucinex] 1,200 mg PO BID #14 tab 04/10/19 Prednisone 10 mg PO DAILY #30 tab 04/10/19 levoFLOXacin tablet [Levaquin tablet] 750 mg PO DAILY@0600 #2 tab 04/10/19 The following prescriptions were given: levoFLOXacin tablet [Levaquin tablet] 750 mg PO DAILY@0600 #2 tab Transmission Status: Pending to [id number] Guaifenesin [Mucinex] 1,200 mg PO BID #14 tab Transmission Status: Pending to [facility] [id number] Prednisone 10 mg PO DAILY #30 tab Prescription Printed Primary Care Physician: Julian Asher MD [Primary Care Provider] - Please follow up with your Primary Care Physician in: IN 1-2 WEEK Test Results: Test results from this visit will be discussed in further detail at your follow- up appointment, if applicable. Please Follow Up With: Rubens Terrazas MD When: IN 1-2 WEEK
--- NOTE | 2019-04-10 11:51 | PCM.DC.SUM ---
Discharge Date and Diagnosis Date of Admission: 04/06/19 Date of Discharge: 04/10/19 - Secondary Discharge Diagnosis Chronic Problems (Last Reviewed 03/30/19 @ 10:46 by Anahi Roberts) Scoliosis of thoracolumbar spine (Chronic) Lung nodule (Chronic) Asthma (Chronic) Lumbar disc disease (Chronic) Nephrolithiasis (Chronic) Muscle spasm (Chronic) Rhinitis (Chronic) Neuropathic pain (Chronic) COPD (chronic obstructive pulmonary disease) (Chronic) Hospital Course and Treatment Summary of Care Provided: [] The patient is a 64 year old F with history of bronchiectasis with multiple ER visit, last one in February 2019 and on multiple antibiotics came to ED with progressive worsening of shortness of breath, productive cough and low-grade fevers since February 2019. Patient finished Levaquin and doxycycline and 6 weeks of tapering dose of prednisone in recent past since February 2019. Patient still gets easily short of breath on mild exertion and even at rest along with yellowish-green sputum. Patient repositioning pressure at home and it was about 100 ?F In ED,No fever was found. Heart rate 77. Pulse ox 96% on 2 L of oxygen and respiratory rate 20/min. 1. Acute exacerbation of bronchiectasis with suspicion of bibasilar pneumonia: Patient is being admitted on MedSurg floor. Blood cultures x2, sputum culture, urinary antigens for Legionella and Streptococcus, respiratory panel and MRSA nasal screen ordered. On bronchodilator every 4 hourly, IV antibiotic vancomycin and Zosyn, incentive spirometry, IV Solu-Medrol, and chest physiotherapy. Pulmonary consult requested from ER physician. CT chest in March 2019 which reported peribronchial thickening with minimal scattered micronodular and groundglass opacities with mild cylindrical bronchiectasis changes. Mild paraseptal emphysema at the apices. Apical scarring. Chest x-ray done in ER shows mild bibasilar pulmonary infiltrates and subsegmental atelectasis. 12/: Sputum culture growing alphahemolytic strep. Urinary antigens for Legionella esophagus are negative. Respiratory panel negative. Blood cultures x2 are pending. DC vancomycin continue Zosyn. 12\5: Preliminary sputum culture final to Streptococcus. Continue Zosyn. On IV Solu-Medrol. Patient had mild leg edema mostly fluid retention secondary to Solu-Medrol. Lasix 20 mg IV as needed ordered for leg edema. Overall patient looks euvolemic. 127: Patient shortness of breath is much better. No acute events overnight. Blood cultures were negative for more than 48 hours. Sputum culture grew mixed normal respiratory charlie. Discussed with assembly cleaner. Discharged on 2 more days of Levaquin to complete a total of 7 days of antibiotics. Discharged on tapering dose of prednisone. Follow-up with pulmonary clinic in 1 [place] [address] Terrazas. Follow-up PCP. 2 Asthmatic bronchitis and bronchiectasis and thoracolumbar scoliosis: Patient had several rounds of antibiotics since February 2019. She has completed 6 weeks of prednisone also. The patient is awaiting for approval of dupilumab. Patient last PFT was in February 2018; reported within normal limit. No large airways obstructive ventilatory defect with FEV1 of 92% therefore PFT not consistent with COPD. 3. Other chronic comorbidities include neuropathic pain, herpes simplex, lumbar disc disease and thoracolumbar spine. Patient has L4-S1 fusion surgery in January 2017. PT and OT ordered. DVT prophylaxis: On Lovenox 40 Mg subcu daily. Microbiology Past 72 Hours 04/06/19 16:06 Sputum, Expectorated/Coughed Gram Stain - Final 04/06/19 16:06 Sputum, Expectorated/Coughed Respiratory Culture - Final 04/06/19 08:25 Blood Culture (Wb) - No Site/Description Given Blood Culture - Preliminary No growth in 48 hours. 04/06/19 08:35 Blood Culture (Wb) - No Site/Description Given Blood Culture - Preliminary No growth in 48 hours. Laboratory Results 04/09/19 05:10: Free T4 0.91, Free T3 pg/dL 1.3 L Subjective: No fever or chills. Blood pressure is normal. Walking pulse oximetry was done - Physical Exam Vitals/I&O's: Vital Signs Temp Pulse Resp BP Pulse Ox 97.6 F L 90 19 H 127/85 H 92 04/10/19 08:26 04/10/19 08:26 04/10/19 08:26 04/10/19 08:26 04/10/19 09:55 Oxygen Flow Rate (L/min) [ 0 AMBULATING on Room Air] Oxygen Flow Rate (L/min) [At 0 REST on Room Air] Oxygen Flow Rate (L/min) 2 Oxygen Delivery Method Room Air Weight: 141 lb 1.533 oz Body Mass Index (BMI) 24.0 Intake and Output for Last 24 Hours 04/08/19 04/09/19 04/10/19 23:59 23:59 23:59 Intake Total 1390 / 1690 1310.00 / 1310.00 993.5 / 993.5 Balance 1390 / 1690 1310.00 / 1310.00 993.5 / 993.5 General: Alert, Oriented x3, Cooperative HEENT: Atraumatic, PERRLA, EOMI, Normocephalic Neck: Supple, No JVD, Negative Carotid Bruits Lungs: Diminished, Rhonchi - Respiratory fine rhonchi is present Cardiovascular: Regular rate, Regular Rhythm, Normal S1, Normal S2, No murmurs Abdomen: Bowel Sounds Present, Soft, Non Tender, Non-Distended Extremities: No edema, Capillary Refill Less than 3 Seconds Skin: No rashes, No breakdown Musculoskeletal: No Tenderness to Palpation of Joints or Extremities, Arthritic Changes Neurological: Cranial nerves II-XII grossly intact, Deep Tendon Reflexes 2+/4 and Symmetrical, Neuro grossly intact Psych/Mental Status: Normal Affect, Appropriate Microbiology Past 72 Hours 04/06/19 16:06 Sputum, Expectorated/Coughed Gram Stain - Final 04/06/19 16:06 Sputum, Expectorated/Coughed Respiratory Culture - Final 04/06/19 08:25 Blood Culture (Wb) - No Site/Description Given Blood Culture - Preliminary No growth in 48 hours. 04/06/19 08:35 Blood Culture (Wb) - No Site/Description Given Blood Culture - Preliminary No growth in 48 hours. Laboratory Results 04/09/19 05:10: Free T4 0.91, Free T3 pg/dL 1.3 L Current Medications Acetaminophen (Tylenol) 650 mg PO Q6H PRN PRN PRN Reason: Pain Score 1-3/Temp > 100.7 F Last Admin: 04/08/19 02:19 Dose: 650 mg Documented by: Acyclovir (Zovirax) 400 mg PO Q12 [facility] Last Admin: 04/10/19 08:48 Dose: 400 mg Documented by: Albuterol Sulfate (Ventolin Aerosols) 2.5 mg INHALATION Q2H PRN PRN PRN Reason: SOB/Wheezing Albuterol/Ipratropium (Duoneb) 3 ml INHALATION Q4HWA.RT [facility] Last Admin: 04/10/19 11:29 Dose: Not Given Documented by: Artificial Tears (Thera Tears) 1 each EACH EYE Q1H PRN PRN Reason: DRY EYES Last Admin: 04/06/19 17:13 Dose: 1 each Documented by: Baclofen (Lioresal) 10 mg PO QHS [facility] Last Admin: 04/09/19 22:36 Dose: 10 mg Documented by: Dextrose (D50w Syringe) 0 gm IV X1 PRN; Protocol PRN Reason: Hypoglycemia Diclofenac Sodium (Voltaren) 75 mg PO 0800,1500 [facility] Last Admin: 04/10/19 08:46 Dose: 75 mg Documented by: Duloxetine HCl (Cymbalta) 60 mg PO DAILY [facility] Last Admin: 04/10/19 08:47 Dose: 60 mg Documented by: Enoxaparin Sodium (Lovenox) 40 mg SC DAILY [facility] Last Admin: 04/10/19 08:49 Dose: 40 mg Documented by: Famotidine (Pepcid) 20 mg PO BID [facility] Last Admin: 04/10/19 08:47 Dose: 20 mg Documented by: Furosemide (Lasix) 20 mg IV DAILY PRN PRN PRN Reason: leg edema Last Admin: 04/08/19 13:52 Dose: 20 mg Documented by: Gabapentin (Neurontin) 600 mg PO QHS [facility] Last Admin: 04/09/19 22:36 Dose: 600 mg Documented by: Gabapentin (Neurontin) 300 mg PO DAILY@0800 [facility] Last Admin: 04/10/19 08:46 Dose: 300 mg Documented by: Gabapentin (Neurontin) 600 mg PO LUNCH [facility] Last Admin: 04/09/19 12:31 Dose: 600 mg Documented by: Glucagon () 1 mg IM .X1 PRN PRN Reason: Hypoglycemia Guaifenesin (Mucinex) 1,200 mg PO BID [facility] Last Admin: 04/10/19 08:47 Dose: 1,200 mg Documented by: Hydroxyzine Pamoate (Vistaril Pamoate Capsule) 25 mg PO Q8H PRN PRN PRN Reason: ANXIETY Last Admin: 04/08/19 22:55 Dose: 25 mg Documented by: Sodium Chloride () 250 mls @ 15 mls/hr IV .[id number] PRN PRN Reason: Saline Flush Last Infusion: 04/10/19 08:53 Dose: Infused Documented by: Levofloxacin (Levaquin Tablet) 750 mg PO DAILY@0600 [facility] Last Admin: 04/10/19 09:42 Dose: 750 mg Documented by: Magnesium Oxide (Mag-Ox 400) 400 mg PO DAILY [facility] Last Admin: 04/10/19 08:47 Dose: 400 mg Documented by: Nitroglycerin (Nitrostat) 0.4 mg SUBLINGUAL Q5M PRN PRN Reason: CARDIAC/CHEST PAIN Ondansetron HCl (Zofran) 4 mg IV Q8H PRN PRN PRN Reason: NAUSEA/VOMITING Oxycodone HCl (Oxyir) 5 mg PO BID PRN PRN PRN Reason: Pain Score 1-10/10 Last Admin: 04/07/19 11:08 Dose: 5 mg Documented by: Pantoprazole Sodium (Protonix) 20 mg PO DAILY [facility] Last Admin: 04/10/19 08:47 Dose: 20 mg Documented by: Potassium Chloride (K-Dur) 10 meq PO DAILY@0800 [facility] Last Admin: 04/10/19 08:46 Dose: 10 meq Documented by: Prednisone () 40 mg PO DAILY@0800 [facility] Last Admin: 04/10/19 08:46 Dose: 40 mg Documented by: Prochlorperazine Edisylate (Compazine Iv) 5 mg IV Q4H PRN PRN PRN Reason: Breakthrough Nausea/Vomiting Senna/Docusate Sodium (Senokot-S, Petra-Colace) 2 tablet PO BID PRN PRN PRN Reason: Constipation Sodium Chloride () 10 - 40 ml IV UD PRN PRN Reason: SALINE FLUSH Last Admin: 04/09/19 22:36 Dose: 10 ml Documented by: Trazodone HCl (Desyrel) 100 mg PO QHS [facility] Last Admin: 04/09/19 22:36 Dose: 100 mg Documented by: Discharge Activity: Return to Normal Activity, May Not Drive Home Medications: Medications to take at Discharge Hydroxyzine HCl 25 mg PO Q8 PRN 08/21/16 Valacyclovir HCl [Valacyclovir] 500 mg PO DAILY 08/21/16 Baclofen 10 mg PO QHS 05/25/17 Cod Liver Oil 1 ea PO DAILY 05/25/17 Oxycodone [Oxyir] 5 mg PO BID PRN PRN 05/25/17 Potassium Citrate [Urocit-K] 10 meq PO DAILY 05/25/17 Phenazopyridine HCl [Pyridium] 200 mg PO BID PRN PRN #10 tab 05/26/17 gabapentin 300 mg capsule 300 mg PO DAILY cap 03/02/18 gabapentin 300 mg capsule 600 mg PO LUNCH cap 03/02/18 Gabapentin [Gralise] 600 mg PO QHS 03/04/18 diclofenac sodium 75 mg tablet,delayed release 75 mg PO 0800,1500 05/01/18 ipratropium 20 mcg-albuterol 100 mcg/actuation mist for inhalation 1 puff INHALATION Q6H PRN 05/01/18 magnesium 200 mg tablet 400 mg PO DAILY tab 05/01/18 Budesonide/Formoterol 160/4.5 [Symbicort 160/4.5 Mcg Inhaler (SP)] 2 puff INHALATION BID 04/06/19 CycloSPORINE Ophthalmic [Restasis Ophthalmic] 1 drp EACH EYE BID 04/06/19 Dupilumab [Dupixent] 300 mg SUBCUT Q2W 04/06/19 Esomeprazole Mag Trihydrate [Nexium] 10 mg PO DAILY 04/06/19 Duloxetine Hcl [Cymbalta] 60 mg PO DAILY 04/07/19 Guaifenesin [Mucinex] 1,200 mg PO BID #14 tab 04/10/19 Prednisone 10 mg PO DAILY #30 tab 04/10/19 levoFLOXacin tablet [Levaquin tablet] 750 mg PO DAILY@0600 #2 tab 04/10/19 Following Prescrptions Were Given to Patient: levoFLOXacin tablet [Levaquin tablet] 750 mg PO DAILY@0600 #2 tab Transmission Status: Received by [facility] [id number] Guaifenesin [Mucinex] 1,200 mg PO BID #14 tab Transmission Status: Received by [facility] [id number] Prednisone 10 mg PO DAILY #30 tab Prescription Printed Primary Care Physician: Julian Asher MD [Primary Care Provider] - Please follow up with your Primary Care Physician in: IN 1-2 WEEK Please Follow Up With: Rubens Terrazas MD When: IN 1-2 WEEK Medical Necessity - Tobacco Use Smoking Status: Former smoker Meaningful Use Info Meaningful Use Diagnoses (Choose all that apply): None applicable Code Visit Inpatient E&M: 90649 [facility]
[2019-04-10 13:05] VITALS: BP 118/78; PULSE 85; RESP 18; TEMP 36.7; O2SAT 94
--- NOTE | 2019-04-12 14:34 | CASEMGMT ---
Case Management DC F/u Call: DC Date: 04/10/19 DC Diagnosis: None documented. Tx for: Acute exacerbation of bronchiectasis with suspicion of bibasilar pneumonia DC Disposition: Home Lace/Strata: 15/08 Called Patient listed cell number on demographics, answered and this communications writer introduced self and role. Patient states has been taking her DC medications and denies any issues or concerns, states that she is currently at her family doctors for follow up and going to try to get a repeat CXR to see if there is improvement. Norma Desir RNCM
== END 2019-04-10 14:14 | disposition home or self-care (01) | DRG 192 ==
LOC: ED 08:53 → PCU 11:33
PROVIDERS: Internal Medicine; Admitting Provider Internal Medicine; Emergency Provider Emergency Medicine; Family Provider Family Medicine; PCP Family Medicine; Referring Provider Internal Medicine; Visit Provider Internal Medicine
DX: J47.0 Bronchiectasis with acute lower respiratory infection (principal); J18.9 Pneumonia, unspecified organism; J47.1 Bronchiectasis with (acute) exacerbation; M51.9 Unspecified thoracic, thoracolumbar and lumbosacral intervertebral disc disorder; M41.85 Other forms of scoliosis, thoracolumbar region; Z98.1 Arthrodesis status; M85.80 Other specified disorders of bone density and structure, unspecified site; Z87.891 Personal history of nicotine dependence; J45.909 Unspecified asthma, uncomplicated
CPT/HCPCS: 36415; 71046; 80048; 80053; 80202; 83605; 84439; 84443; 84481; 85025; 87040; 87070; 87205; 87449; 87633; 87641; 93005; 94640; 94667; 94668; 94760; 97802; 99251; 99284; J7030; J7050; A4216; G0463; J1940

== ENCOUNTER → 2019-04-12 15:25 | Outpatient (CLI) | payer MEDICARE, OTHER, SELFPAY ==
[2019-04-06 09:28] VITALS: BMI 24.0
--- NOTE | 2019-04-12 15:27 | RAD_ITS ---
STUDY: X-RAY CHEST REASON FOR EXAM: Female, 64 years old. Pneumonia. TECHNIQUE: PA and lateral views of the chest. COMPARISON: 04/06/2019. FINDINGS: There is mild left lower lobe atelectasis, remainder of the lungs are clear and expanded. There is no demonstrated pleural abnormality. Normal size heart. Normal mediastinum and stanislaw. Normal visualized pulmonary arteries. There is atherosclerotic calcification of the aortic arch with tortuosity. There is demineralization of the osseous structures. There is degenerative osteoarthritis of the bilateral shoulders and spine. There is no demonstrated abnormality of the visualized soft tissue structures of the upper abdomen. RAD/Chest PA and Lateral IMPRESSION: Minimal left lower lobe atelectasis, otherwise no acute process identified. Electronically Signed: Noni Bhatia MD at 21:26 EST , Service support ,
== END ==
PROVIDERS: Family Provider Family Medicine; PCP Family Medicine; Referring Provider Family Medicine; Visit Provider Family Medicine
DX: J18.9 Pneumonia, unspecified organism (principal)
CPT/HCPCS: 71046

== ENCOUNTER 2019-05-02 01:13 | Inpatient (IN) | payer MEDICARE, OTHER, SELFPAY ==
[2019-04-26 07:11] VITALS: BMI 24.0
[2019-05-02] VITALS (11 sets, daily range): BP systolic 128–143; BP diastolic 74–83; PULSE 72–89; RESP 16–20; TEMP 36.2–36.7; O2SAT 92–98; BMI 24.2; BMI 24.0
--- NOTE | 2019-05-02 01:59 | EKG12_ITS ---
Test Reason : COUGH Blood Pressure : / mmHG Vent. Rate : 073 BPM Atrial Rate : 073 BPM P-R Int : 136 ms QRS Dur : 076 ms QT Int : 422 ms P-R-T Axes : 011 -17 019 degrees QTc Int : 464 ms Normal sinus rhythm Normal ECG Confirmed by ANANDA LEES, POLINA ([id number]), loan expeditor ZAK CARNEY ([id number]) on 05/04/2019 10:04:03 AM Referred By: THANG Confirmed By:POLINA MALAVE MD
--- NOTE | 2019-05-02 02:00 | ED.VIS.GEN ---
History of Present Illness Chief Complaint: Cough Narrative: Patient is a 64-year-old female who presents with chest pain. She has a history of asthma and bronchiectasis. She complains of increased shortness of breath, cough, sputum for the past couple of days. About 12 hours ago with coughing she had sudden onset sharp right-sided chest pain. This is worse with coughing. It is not really worse with inspiration. She states it feels similar to when she was treated for pneumonia. No fevers nausea vomiting or diarrhea. She does have some congestion and nasal discharge. She is on immunotherapy for her asthma. Past Medical History - Allergies and Home Meds Allergies/Adverse Reactions: Allergies bacitracin Adverse Reaction (Verified 05/02/19 01:14) Itching chlorpheniramine [From Dristan Cold] Adverse Reaction (Verified 05/02/19 01:14) Other loratadine [From Claritin-D] Adverse Reaction (Verified 05/02/19 01:14) Other morphine Adverse Reaction (Verified 05/02/19 01:14) Nausea phenylephrine [From Dristan Cold] Adverse Reaction (Verified 05/02/19 01:14) Other pseudoephedrine [From Claritin-D] Adverse Reaction (Verified 05/02/19 01:14) Other tramadol Adverse Reaction (Verified 05/02/19 01:14) Vomiting novacaine Adverse Reaction (Uncoded 05/02/19 01:14) Unknown Primary Care Physician: Julian Asher MD [Primary Care Provider] - Past Medical History: - - Asthma, bronchiectasis Surgical History: noncontributory, - Smoking Status: Former smoker - Family History Maternal Family History: Family History (Last Reviewed 04/26/19 @ 10:38 by Yeimi Suarez) Mother Cancer Sister Cancer Asthma Grandfather CAD (coronary artery disease) Grandmother Arthritis Father Hypertension Family History: Reports: No pertinent history Paternal Family History: Family History (Last Reviewed 04/26/19 @ 10:38 by Yeimi Suarez) Mother Cancer Sister Cancer Asthma Grandfather CAD (coronary artery disease) Grandmother Arthritis Father Hypertension Family History: Reports: No pertinent history Review of Systems All systems negative except as indicated General: Denies: Fever Eyes: Denies: Visual changes - bilaterally ENT: Denies: Bilateral ear pain Cardiovascular: Reports: Chest pain Respiratory: Reports: Dyspnea, Cough, Sputum Gastrointestinal: Denies: Abdominal pain, Nausea, Vomiting, Diarrhea Musculoskeletal: Denies: Myalgias, Arthralgias Skin: Denies: Rash Neurological: Denies: Headache Allergy: Denies: Uticaria Physical Exam Vital Signs/Narrative: Vital Signs Temp Pulse Resp BP Pulse Ox 05/02/19 01:14 97.7 F L 86 16 143/81 H 92 Inital Vital Signs reviewed: Yes General: Well nourished, Well developed Head: Normocephalic Eyes: EOMI ENT: Moist mucous membranes Neck: Supple Cardiovascular: Regular rate, Regular rhythm Respiratory: No distress, CTA bilaterally, Rhonchi. Negative for: Decreased Air Movement Abdomen: Soft Extremities: Nontender Skin: Normal color Neurological: Alert Psychological: Normal affect Diagnostic/Tx/Re-eval Impressions Chest X-Ray 05/02/19 02:30 IMPRESSION: Left lower lobe airspace disease likely representing pneumonia. at 0305 Reported and signed by: José Bar MD Electronically Signed: José Bar MD at 3:04 EST Tel , Service support , Chest CTA 05/02/19 03:04 IMPRESSION: No pulmonary embolism, aortic aneurysm, or aortic dissection. Multifocal airspace disease. Within the lung bases it appears to be mostly atelectasis. There is evidence of chronic bronchitis and bronchiolitis with soft tissue filling the lumen of several bronchioles. Bronchiolitis is within the differential. Pneumonia is within the differential. There is some more diffuse airspace disease, or less associated with the bronchioles within the right upper lobe and perihilar region of the right middle lobe. This could also represent pneumonia or bronchiolitis. There are a few bullae within the upper lungs suggestive of paraseptal emphysema. Coronary artery calcific ASCVD. Individualized dose optimization techniques were used for this CT. at 2184 Reported and signed by: José Bar MD Electronically Signed: José Bar MD at 3:53 EST Tel , Service support , 05/02/19 02:30 Chest PA and Lateral [RAD] Stat 05/02/19 03:04 CTA Chest W/WO Contrast [CT] Stat Laboratory Results 05/02/19 05/02/19 05/02/19 02:12 02:12 02:12 WBC 6.6 RBC 3.94 L Hgb 12.8 Hct 39.6 MCV 100.5 H MCH 32.5 H MCHC 32.3 RDW Std Deviation 51.8 H RDW Coeff of Tarun 14.0 Plt Count 191 MPV 9.9 Immature Gran % (Auto) 0.800 Neut % (Auto) 52.7 Lymph % (Auto) 34.5 [place] % (Auto) 8.7 Eos % (Auto) 2.7 Baso % (Auto) 0.6 Absolute Neuts (auto) 3.5 Absolute Lymphs (auto) 2.26 Nucleated RBC % 0 PT 11.5 L INR 0.9 D-Dimer Quant (PE/DVT) 0.55 H* Sodium 140 Potassium 3.9 Chloride 107 Carbon Dioxide 28.0 Anion Gap 5 BUN 27 H Creatinine 0.72 Estim Creat Clear Calc 67.27 Est GFR (MDRD) Af Amer 104 Est GFR (MDRD) Non-Af 86 BUN/Creatinine Ratio 37.3 H Glucose 100 Calcium 8.6 Troponin I < 0.015 - Medical Decision Making Patient was given Toradol and then [place] for pain. She was given a DuoNeb aerosol. Labs as above came back notable for d-dimer of 550. This was obtained due to her sudden onset sharp chest pain with recent hospitalization. Chest x-ray was read as possible left lower pneumonia. Given that she has pain on the right I was still concerned for possible pulmonary embolism. CTA of the chest shows multifocal airspace disease concerning for potential pneumonia. Patient has been taking Augmentin at home for 3 days. She was given IV Levaquin. She desaturated to 87% on room air while here and was put on nasal cannula. She will be discussed with the hospitalist and admitted. ED Disposition - Plan for ED Patient: Disposition: Acute Care Hospital [facility] Diagnosis: Pneumonia, Bronchiectasis Referrals: Julian Asher MD [Primary Care Provider] -
[2019-05-02] MEDS: Ketorolac 15 MG/ML Vial IV (02:11)
[2019-05-02] MEDS: Ipratropium/Albuterol Sulfate 3 ML AMPUL.NEB INHALATION ×4 (02:20→19:05)
[2019-05-02 02:21] LABS: Absolute Lymphocyte Count 2.26 X10^3/uL (0.83-4.51); Absolute Neutrophil Count 3.5 X10^3/uL (2.0-7.7); Basophil# 0.04 X10^3/uL; Basophil% 0.6 % (0-1); Eosinophil# 0.18 X10^3/uL; Eosinophils% 2.7 % (0-5); Hematocrit 39.6 % (37-47); Hemoglobin 12.8 g/dL (12.0-15.0); Lymphocyte # 2.26 X10^3/ul (4.0); Lymphocyte % 34.5 % (19-41); Mean Corp Hgb Conc 32.3 g/dL (32-36); Mean Corpuscular Hgb 32.5 pg (27.0-32.0); Mean Corpuscular Volume 100.5 fL (81-99); Mean Platelet Vol. 9.9 fl (6.2-12.0); Monocyte# 0.57 X10^3/uL; Monocyte% 8.7 % (0-10); NRBC Flagged by Analyzer 0 % (0-5); Neutrophil # 3.46 X10^3/uL (2.7-7.7); Neutrophil % 52.7 % (47-70); Platelet Count 191 K/mm3 (150-450); RBC Distribution Width SD 51.8 fl (35.1-43.9); Red Blood Count 3.94 M/mm3 (4.2-5.4); White Blood Count 6.6 K/mm3 (4.4-11.0)
--- NOTE | 2019-05-02 02:30 | RAD_ITS ---
HISTORY: SOB, COUGH AND PAIN RT SIDE WITH COUGH. RECENTLY TREATED FOR PNEUMONIA. EXAM: XR Chest 2 Views: COMPARISON: April 12, 2019 FINDINGS: # of images incl. paperwork: 2 Obscuration of the left heart border and the left hemidiaphragm is new with some linear airspace disease. This airspace disease is much better demonstrated on the lateral image within the left lower lobe The right hilar vessels are less distinct than the previous study, however, the patient is rotated. This could be due to right hilar adenopathy, right perihilar airspace disease, or normal. Slight elevation of the right hemidiaphragm is similar. The right lung is clear Heart is not enlarged. Dextroscoliosis within the lower lumbar spine is similar. Pulmonary vascularity is distinct. Small left pleural effusions. RAD/Chest PA and Lateral IMPRESSION: Left lower lobe airspace disease likely representing pneumonia. at 0305 Reported and signed by: José Bar MD Electronically Signed: José Bar MD at 3:04 EST Tel , Service support ,
[2019-05-02 02:32] LABS: International Normalized Ratio 0.9; Prothrombin Time (Protime)PT. 11.5 SECONDS (11.7-14.9)
[2019-05-02 02:37] LABS: D-Dimer Quantitative (DVT/PE) 0.55 FEU/ug/m (0.27-0.49)
[2019-05-02 02:43] LABS: Anion Gap 5 (5-15); BUN 27 mg/dL (7-18); BUN/Creat Ratio 37.3 RATIO (10-20); Calcium,Total 8.6 mg/dL (8.5-10.1); Chloride 107 mmol/L (98-107); Creatinine, Serum 0.72 mg/dL (0.55-1.02); EST Glomerular Filtration Rate 86 mL/min (>60); Est Glom Filt Rate - Afr Amer 104 mL/min (>60); Estimated Creatinine Clearance 67.27 ml/min; Glucose 100 mg/dL (74-106); Potassium 3.9 mmol/L (3.5-5.1); Sodium Level 140 mmol/L (136-145)
--- NOTE | 2019-05-02 03:04 | CT_ITS ---
HISTORY: SOB, COUGH, ELEVATED D-DIMER, RIGHT SIDE CP, RECENT PNEUMONIA DX TECHNIQUE: Helically acquired images were obtained of the chest following the intravenous administration of 97 ML of Isovue 300 Iodinated contrast. as per pulmonary angiogram protocol with 2D MIP reconstructions. A radiation dose optimization technique was used for this scan. COMPARISON: Most recent chest x-ray comparison is from less than one hour earlier. A chest CT was performed on March 23, 2019, without the use of intravenous contrast. FINDINGS: # of images incl. paperwork: 952 Lungs are hyperexpanded consistent with obstructive lung disease. Airspace disease is present within the right upper lobe, the right middle lobe, in the right lower lobe. Airspace disease is present within the inferior lateral aspect of the lingula in the left lower lobe, however, this airspace disease or believe is more likely to be atelectasis than inflammatory or infectious. Bronchiectasis is present throughout the lungs. Some of the bronchi within the right lower lobe do demonstrate bronchial wall thickening, and in places there is soft tissues occluding some of the lumens of the bronchi. This is also present within the left lower lobe. . No effusions. Within the thoracic spinethere is a dextroscoliosis to the mid thoracic spine with compensatory levoscoliosis in the upper thoracic spine. Vertebral body height is fairly well preserved. Minimal wedging at the apex of the scoliosis. Multilevel degenerative disc disease with small anterior enthesophytes. Degenerative disc disease is slightly greater on the left, at the concavity of the scoliosis the left anterior lateral eighth rib demonstrates sclerosis, likely where it is healing from her fracture. The left anterior lateral seventh rib demonstrates a similar sclerotic focus likely representing a healing fracture. This was somewhat sclerotic on both left and right sides on the March 23, 2019 study. Facets are well aligned. Heart is not enlarged. Thoracic aorta elongated with atherosclerotic plaque. Some coronary artery calcific plaque is also present. No aneurysms, stenoses, dissections, nor occlusions. No axillary or mediastinal adenopathy. No pulmonary emboli. Visualized portions of the upper abdomen are without identified acute pathology. CT/CTA Chest W/WO Contrast IMPRESSION: No pulmonary embolism, aortic aneurysm, or aortic dissection. Multifocal airspace disease. Within the lung bases it appears to be mostly atelectasis. There is evidence of chronic bronchitis and bronchiolitis with soft tissue filling the lumen of several bronchioles. Bronchiolitis is within the differential. Pneumonia is within the differential. There is some more diffuse airspace disease, or less associated with the bronchioles within the right upper lobe and perihilar region of the right middle lobe. This could also represent pneumonia or bronchiolitis. There are a few bullae within the upper lungs suggestive of paraseptal emphysema. Coronary artery calcific ASCVD. Individualized dose optimization techniques were used for this CT. at 0354 Reported and signed by: José Bar MD Electronically Signed: José Bar MD at 3:53 EST Tel , Service support ,
[2019-05-02] MEDS: HYDROcodone Bitartrate/Apap 5/325 Tablet PO (03:41)
[2019-05-02] MEDS: levoFLOXacin IV 750 MG/150 ML BAG 100 MG IV (04:52)
--- NOTE | 2019-05-02 04:57 | HP.PCM_ITS ---
Problem List (1) Bronchiectasis Status: Acute Qualifiers: Bronchiectasis type: with acute exacerbation Qualified Code(s): J47.1 - Bronchiectasis with (acute) exacerbation (2) Scoliosis of thoracolumbar spine Status: Chronic Qualifiers: Scoliosis type: thoracogenic Qualified Code(s): M41.35 - Thoracogenic scoliosis, thoracolumbar region (3) Asthma Status: Chronic Qualifiers: Asthma severity: severe Asthma persistence: persistent Asthma complication type: with acute exacerbation Qualified Code(s): J45.51 - Severe persistent asthma with (acute) exacerbation (4) Lumbar disc disease Status: Chronic (5) Neuropathic pain Status: Chronic (6) COPD (chronic obstructive pulmonary disease) Status: Chronic Qualifiers: COPD type: COPD with acute lower respiratory infection Qualified Code(s): J44.0 - Chronic obstructive pulmonary disease with (acute) lower respiratory infection; J44.0 - Chronic obstructive pulmonary disease with acute lower respiratory infection; J44.0 - Chronic obstructive pulmonary disease with acute lower respiratory infection; J44.0 - Chronic obstructive pulmonary disease with acute lower respiratory infection History of Present Illness Date of Admission: 05/02/19 Chief Complaint: Cough, shortness of breath. The patient is a 64 year old F patient with past medical history as mentioned above presented to the emergency room because of cough and shortness of breath. Patient was discharged from the hospital on April 10, 2019 after she was admitted for acute exacerbation of bronchiectasis with suspected pneumonia and she was discharged on Levaquin and prednisone taper. Patient mentioned that after she went home, she felt okay for couple of days and then she started having symptoms of sinus congestion, productive cough and mild shortness of breath. Few days ago, she saw Dr. Terrazas for follow-up as outpatient and she was started on Augmentin. She mentioned that she has been having increasing cough over the last 3 to 4 days, productive cough with brown sputum in the morning that becomes green later during the day, moderate amount, associated with exertional shortness of breath and subjective fever. She denied wheezing, orthopnea or PND. In the emergency department, reported pulse ox is 92% on room air but ER physician mentioned that she was hypoxic and she required oxygen. Her routine blood work was unremarkable. EKG revealed normal sinus rhythm without evidence of acute segment changes or cardiac arrhythmias. Chest x-ray revealed obliteration of the left costophrenic angle, no obvious infiltrate or c onsolidation. She was found to have elevated d-dimer for which CTA chest done and showed no PE or dissection, revealed chronic bronchitis, bronchiolitis, diffuse airspace disease. She is being admitted for recurrent exacerbation of bronchiectasis and suspected healthcare associated pneumonia which is less likely. Past Medical History Past Medical History (Chronic Problems): Chronic Problems (Last Updated 05/02/19 @ 04:57 by Juan Boggs MD) Scoliosis of thoracolumbar spine (Chronic) Lung nodule (Chronic) Asthma (Chronic) Lumbar disc disease (Chronic) Nephrolithiasis (Chronic) Rhinitis (Chronic) Neuropathic pain (Chronic) COPD (chronic obstructive pulmonary disease) (Chronic) Medical History: Medical History (Last Updated 05/02/19 @ 04:57 by Juan Boggs MD) Scoliosis of thoracolumbar spine (Chronic) M41.9 Lung nodule (Chronic) R91.1 Lumbar disc disease (Chronic) M51.9 Nephrolithiasis (Chronic) Neuropathic pain (Chronic) COPD (chronic obstructive pulmonary disease) (Chronic) J44.9 Arthritis M19.90 Asthma J45.909 Disease of tonsils and adenoids (Inactive) J35.9 Allergies bacitracin Adverse Reaction (Verified 05/02/19 01:14) Itching chlorpheniramine [From Dristan Cold] Adverse Reaction (Verified 05/02/19 01:14) Other loratadine [From Claritin-D] Adverse Reaction (Verified 05/02/19 01:14) Other morphine Adverse Reaction (Verified 05/02/19 01:14) Nausea phenylephrine [From Dristan Cold] Adverse Reaction (Verified 05/02/19 01:14) Other pseudoephedrine [From Claritin-D] Adverse Reaction (Verified 05/02/19 01:14) Other tramadol Adverse Reaction (Verified 05/02/19 01:14) Vomiting novacaine Adverse Reaction (Uncoded 05/02/19 01:14) Unknown Home Medications: Ambulatory Orders Medication Instructions Recorded Hydroxyzine HCl 25 mg PO Q8 PRN 08/21/16 Valacyclovir HCl [Valacyclovir] 500 mg PO DAILY 08/21/16 Baclofen 10 mg PO QHS 05/25/17 Cod Liver Oil 1 ea PO DAILY 05/25/17 Oxycodone [Oxyir] 5 mg PO BID PRN PRN 05/25/17 Potassium Citrate [Urocit-K] 10 meq PO DAILY 05/25/17 gabapentin 300 mg capsule 300 mg PO DAILY cap 03/02/18 gabapentin 300 mg capsule 600 mg PO LUNCH cap 03/02/18 Gabapentin [Gralise] 600 mg PO QHS 03/04/18 diclofenac sodium 75 mg 75 mg PO 0800,1500 05/01/18 tablet,delayed release ipratropium 20 mcg-albuterol 100 1 puff INHALATION Q6H PRN 05/01/18 mcg/actuation mist for inhalation magnesium 200 mg tablet 400 mg PO DAILY tab 05/01/18 Budesonide/Formoterol 160/4.5 2 puff INHALATION BID 04/06/19 [Symbicort 160/4.5 Mcg Inhaler (SP)] CycloSPORINE Ophthalmic [Restasis 1 drp EACH EYE BID 04/06/19 Ophthalmic] Dupilumab [Dupixent] 300 mg SUBCUT Q2W 04/06/19 Esomeprazole Mag Trihydrate 10 mg PO DAILY 04/06/19 [Nexium] Duloxetine Hcl [Cymbalta] 60 mg PO DAILY 04/07/19 Guaifenesin [Mucinex] 1,200 mg PO BID #14 tab 04/10/19 amoxicillin 875 mg-potassium 1 tab PO BID #28 tab 04/26/19 clavulanate 125 mg tablet multivitamin 1 cap PO DAILY 04/26/19 vitamin K2 40 mcg tablet 40 mcg PO DAILY 04/26/19 Surgical History: Surgical History (Last Reviewed 05/02/19 @ 05:04 by Juan Boggs MD) History of hernia repair Z98.890, Z87.19 History of hysterectomy Z90.710 History of tonsillectomy Z90.89 history bladder sling history removal ectopic Bladder sling clipped 03/06/18 H/O colonoscopy Z98.890 03/05/18 H/O foot surgery (Inactive) Z98.890 History of back surgery (Inactive) Z98.890 L4-S1 fusion in January 2017 Surgical History: - Psychiatric History: Anxiety 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 Denies: Anorexia, Chills, Weakness Eyes: Denies: Blurred vision, Double vision, Drainage, Redness HEENT: Reports: Nasal Congestion. Denies: Difficulty Hearing, Ear Pain, Eye Pain, Sore Throat Cardiovascular: Denies: Chest Pain, Chest Pressure, Edema, Heaviness, Palpitations, Paroxysmal Noc. Dyspnea, Syncope Respiratory: Reports: Cough, Pleuritic Pain, Shortness of breath upon exertion, Sputum production. Denies: Hemoptysis, Wheezing Gastrointestinal: Denies: Abdominal Pain, Constipation, Diarrhea, Nausea, Vomi ting Genitourinary: Denies: Dysuria, Frequency, Hematuria Musculoskeletal: Denies: Arm Pain, Back Pain, Foot Pain Skin: Denies: Dryness, Rash Neurological: Denies: Balance problems, Double vision, Change in Speech, Slurred speech, Confusion Psychiatric: Reports: Depression Endocrine: Denies: Change in Body Habitus, Polydipsia, Polyuria VTE Information - Inpt Only VTE Present on Admission: No VTE Mechan Device Prophylaxis: None VTE Pharm Prophylaxis ordered?: Yes Patient Problems: Active and Suspected Problems (Last Updated 05/02/19 @ 04:57 by Juan Boggs MD) Bronchiectasis (Acute) - Physical Exam Vitals/I&O's: Vital Signs Temp Pulse Resp BP Pulse Ox 97.7 F L 78 16 143/81 H 92 05/02/19 01:14 05/02/19 02:20 05/02/19 02:20 05/02/19 01:14 05/02/19 01:14 Oxygen Delivery Method Room Air Weight: 141 lb Body Mass Index (BMI) 24.2 General: Alert, Oriented x3, Cooperative, No apparent distress HEENT: Atraumatic, PERRLA, EOMI, Normocephalic Oral: Moist Mucosa, No Gingival or Mucosal Lesions/ Ulcerations Neck: Supple, No JVD, Negative Carotid Bruits, Trachea Midline, Thyroid Normal Size and Texture Lungs: No wheeze, No rales, Diminished, Rhonchi, - - Decreased breath sounds bilateral, scattered rhonchi. Cardiovascular: Regular rate, Regular Rhythm, Normal S1, Normal S2, PMI Normal Abdomen: Bowel Sounds Present, Soft, Non Tender, Non-Distended, No Hepato- splenomegaly Extremities: No clubbing, No cyanosis, No edema Skin: No rashes, No breakdown Lymphatic: No Cervical, Supraclavicular, or Inguinal Adenopathy Neurological: Cranial nerves II-XII grossly intact, Motor Exam 5/5 strength throughout Psych/Mental Status: Normal Affect, Appropriate, Alert and oriented to time, place, person, mood and affect Laboratory Results 05/02/19 02:12: WBC 6.6, RBC 3.94 L, Hgb 12.8, Hct 39.6, MCV 100.5 H, MCH 32.5 H , MCHC 32.3, RDW Std Deviation 51.8 H, RDW Coeff of Tarun 14.0, Plt Count 191, MPV 9.9, Immature Gran % (Auto) 0.800, Neut % (Auto) 52.7, Lymph % (Auto) 34.5, Real % (Auto) 8.7, Eos % (Auto) 2.7, Baso % (Auto) 0.6, Absolute Neuts (auto) 3.5, Absolute Lymphs (auto) 2.26, Nucleated RBC % 0 05/02/19 02:12: PT 11.5 L, INR 0.9, D-Dimer Quant (PE/DVT) 0.55 H* 05/02/19 02:12: Sodium 140, Potassium 3.9, Chloride 107, Carbon Dioxide 28.0, Anion Gap 5, BUN 27 H, Creatinine 0.72, Estim Creat Clear Calc 67.27, Est GFR (MDRD) Af Amer 104, Est GFR (MDRD) Non-Af 86, BUN/Creatinine Ratio 37.3 H, Glucose 100, Calcium 8.6, Troponin I < 0.015 Clinical Impression(s) from Imaging Studies Chest X-Ray 05/02/19 02:30 IMPRESSION: Left lower lobe airspace disease likely representing pneumonia. at 0305 Reported and signed by: José Bar MD Electronically Signed: José Bar MD at 3:04 EST Tel , Service support , Chest CTA 05/02/19 03:04 IMPRESSION: No pulmonary embolism, aortic aneurysm, or aortic dissection. Multifocal airspace disease. Within the lung bases it appears to be mostly atelectasis. There is evidence of chronic bronchitis and bronchiolitis with soft tissue filling the lumen of several bronchioles. Bronchiolitis is within the differential. Pneumonia is within the differential. There is some more diffuse airspace disease, or less associated with the bronchioles within the right upper lobe and perihilar region of the right middle lobe. This could also represent pneumonia or bronchiolitis. There are a few bullae within the upper lungs suggestive of paraseptal emphysema. Coronary artery calcific ASCVD. Individualized dose optimization techniques were used for this CT. at 0354 Reported and signed by: José Bar MD Electronically Signed: José Bar MD at 3:53 EST Tel , Service support , Current Medications Levofloxacin (Levaquin Iv) 750 mg in 150 mls @ 100 mls/hr IV X1 ONE Stop: 05/02/19 05:39 Last Admin: 05/02/19 04:52 Dose: 100 mls/hr Documented by: Assessment/Plan All Active Problems (Last Updated 05/02/19 @ 04:57 by Juan Boggs MD) Bronchiectasis (Acute) This is a 64 years old female patient presented to the emergency room because of productive cough, sinus congestion, exertional shortness of breath and she was found to have probable acute exacerbation of bronchiectasis as well as pneumonia which is less likely and she is being admitted for treatment. #1 acute exacerbation of bronchiectasis: Patient was recently discharged from the hospital beginning of this month, was discharged on Levaquin. She was start ed on Augmentin again few days ago by pulmonology. She reported increasing brown sputum, mild shortness of breath. She has been afebrile, no leukocytosis. EKG was unremarkable. Routine blood work was unremarkable. CTA chest and chest x-ray reviewed as above. Plan: Admit to [facility] floor, sputum culture, start empiric IV Zosyn, bronchodilators, pulmonology consult, chest physiotherapy, incentive spirometer. #2 probable healthcare associated pneumonia: Although my suspicion is very low for pneumonia. CTA chest reviewed, revealed findings concerning for possible pneumonia, it is hard to say because of the bronchiectasis. Patient has been afebrile, no leukocytosis. Plan: Sputum culture, start IV Zosyn empirically, bronchodilators. #3 chronic neuropathic pain/lumbar disc disease/scoliosis of the thoracolumbar spine: OxyIR PRN, continue baclofen, gabapentin and Tylenol PRN.. #4 asthma/COPD: DuoNeb every 6 hours, albuterol PRN, chest physiotherapy. #5 depression: Continue Cymbalta. #6 DVT prophylaxis: Subcu Lovenox. This note was generated with [employer]on[employer] dictation software. It may contain incorrect words, spelling, and punctuation that were not noted in checking the note befor e signing. Code Visit Inpatient E&M: 49293 Init Hosp L2
[2019-05-02] MEDS: oxyCODONE 5 MG Tablet PO ×3 (06:45→15:08)
[2019-05-02] MEDS: guaiFENesin 1,200 MG Tablet 1200 MG PO ×2 (08:00→21:51)
[2019-05-02] MEDS: DULoxetine Hcl 60 MG Capsule PO (08:01)
[2019-05-02] MEDS: Enoxaparin 40 MG/0.4 ML Syringe SC (08:01)
[2019-05-02] MEDS: Gabapentin 300 MG Capsule PO (08:01)
[2019-05-02] MEDS: Diclofenac 75 MG Tablet PO ×2 (08:01→15:05)
[2019-05-02] MEDS: Acyclovir 200 MG Capsule 400 MG PO (08:02)
[2019-05-02] MEDS: Pantoprazole Sodium 20 MG Tablet PO (08:02)
[2019-05-02] MEDS: Gabapentin 600 MG Tablet PO ×2 (11:29→21:51)
--- NOTE | 2019-05-02 11:31 | CON.PCM_ITS ---
Problem List (1) Bronchiectasis Status: Acute Qualifiers: Bronchiectasis type: with acute exacerbation Qualified Code(s): J47.1 - Bronchiectasis with (acute) exacerbation (2) Scoliosis of thoracolumbar spine Status: Chronic Qualifiers: Scoliosis type: thoracogenic Qualified Code(s): M41.35 - Thoracogenic scoliosis, thoracolumbar region (3) Asthma Status: Chronic Qualifiers: Asthma severity: severe Asthma persistence: persistent Asthma complication type: with acute exacerbation Qualified Code(s): J45.51 - Severe persistent asthma with (acute) exacerbation (4) Lumbar disc disease Status: Chronic (5) Rhinitis Status: Chronic (6) Neuropathic pain Status: Chronic Reason for Consult Date of Consultation: 05/02/19 Reason for Consultation: Bronchiectasis History of Present Illness: The patient is a 64 year old F, with past medical history listed below and well- known to me from the outpatient office, who presented [facility] on 05/02/2019 secondary to acute onset of chest pain. Patient does have a history of severe asthma being treated with immunologic agents and bronchiectasis. Patient has been seen in my office and initiated on Augmentin as an outpatient. Patient states that she was having some drainage and a cough productive of yellow sputum, but on the day prior to hospitalization had a coughing fit resulting in an acute onset of right-sided chest pain. Patient states that this is so debilitating that she can no longer cough and was worried that she would progress to pneumonia again, so came in for evaluation. Patient has not reported any fevers, nausea, vomiting or diarrhea. Patient continues to have sinus congestion and nasal discharge. We did discuss consultation with Dr. Helton as an outpatient, but patient has not been seen. In the ER, patient's pain was not able to be controlled, so she was admitted to the floor. Patient is on room air and tolerating well. Patient readily admits that she cannot take a full breath secondary to her rib pain. Since admission, patient states she is relatively unchanged compared to previous. Patient states that she has decreased her coughing in an effort to deal with her rib pain. Patient has taken some narcotics and states that it can dull the pain, but not enough to comply with cough. Patient denies any dysuria, fever, chills, nausea or vomiting. Patient denies any diarrhea associated with her Augmentin therapy. Review of systems otherwise negative from a constitutional, HEENT, respiratory, cardiovascular, GI, genitourinary, musculoskeletal, skin, neurologic, psychiatric and hematologic system unless stated above. Past Medical History Past Medical History (Chronic Problems): Chronic Problems (Last Updated 05/02/19 @ 04:57 by Juan Boggs MD) Scoliosis of thoracolumbar spine (Chronic) Lung nodule (Chronic) Asthma (Chronic) Lumbar disc disease (Chronic) Nephrolithiasis (Chronic) Rhinitis (Chronic) Neuropathic pain (Chronic) COPD (chronic obstructive pulmonary disease) (Chronic) Medical History: Medical History (Last Updated 05/02/19 @ 04:57 by Juan Boggs MD) Scoliosis of thoracolumbar spine (Chronic) M41.9 Lung nodule (Chronic) R91.1 Lumbar disc disease (Chronic) M51.9 Nephrolithiasis (Chronic) Neuropathic pain (Chronic) COPD (chronic obstructive pulmonary disease) (Chronic) J44.9 Arthritis M19.90 Asthma J45.909 Disease of tonsils and adenoids (Inactive) J35.9 Allergies bacitracin Adverse Reaction (Verified 05/02/19 01:14) Itching chlorpheniramine [From Dristan Cold] Adverse Reaction (Verified 05/02/19 01:14) Other loratadine [From Claritin-D] Adverse Reaction (Verified 05/02/19 01:14) Other morphine Adverse Reaction (Verified 05/02/19 01:14) Nausea phenylephrine [From Dristan Cold] Adverse Reaction (Verified 05/02/19 01:14) Other pseudoephedrine [From Claritin-D] Adverse Reaction (Verified 05/02/19 01:14) Other tramadol Adverse Reaction (Verified 05/02/19 01:14) Vomiting novacaine Adverse Reaction (Uncoded 05/02/19 01:14) Unknown Home Medications: Ambulatory Orders Medication Instructions Recorded Hydroxyzine HCl 25 mg PO Q8 PRN 08/21/16 Valacyclovir HCl [Valacyclovir] 500 mg PO DAILY 08/21/16 Baclofen 10 mg PO QHS 05/25/17 Cod Liver Oil 1 ea PO DAILY 05/25/17 Oxycodone [Oxyir] 5 mg PO BID PRN PRN 05/25/17 Potassium Citrate [Urocit-K] 10 meq PO DAILY 05/25/17 gabapentin 300 mg capsule 300 mg PO DAILY cap 03/02/18 gabapentin 300 mg capsule 600 mg PO LUNCH cap 03/02/18 Gabapentin [Gralise] 600 mg PO QHS 03/04/18 diclofenac sodium 75 mg 75 mg PO 0800,1500 05/01/18 tablet,delayed release ipratropium 20 mcg-albuterol 100 1 puff INHALATION Q6H PRN 05/01/18 mcg/actuation mist for inhalation magnesium 200 mg tablet 400 mg PO DAILY tab 05/01/18 Budesonide/Formoterol 160/4.5 2 puff INHALATION BID 04/06/19 [Symbicort 160/4.5 Mcg Inhaler (SP)] CycloSPORINE Ophthalmic [Restasis 1 drp EACH EYE BID 04/06/19 Ophthalmic] Dupilumab [Dupixent] 300 mg SUBCUT Q2W 04/06/19 Esomeprazole Mag Trihydrate 10 mg PO DAILY 04/06/19 [Nexium] Duloxetine Hcl [Cymbalta] 60 mg PO DAILY 04/07/19 Guaifenesin [Mucinex] 1,200 mg PO BID #14 tab 04/10/19 amoxicillin 875 mg-potassium 1 tab PO BID #28 tab 04/26/19 clavulanate 125 mg tablet multivitamin 1 cap PO DAILY 04/26/19 vitamin K2 40 mcg tablet 40 mcg PO DAILY 04/26/19 Surgical History: Surgical History (Last Reviewed 05/02/19 @ 05:04 by Juan Boggs MD) History of hernia repair Z98.890, Z87.19 History of hysterectomy Z90.710 History of tonsillectomy Z90.89 history bladder sling history removal ectopic Bladder sling clipped 03/06/18 H/O colonoscopy Z98.890 03/05/18 H/O foot surgery (Inactive) Z98.890 History of back surgery (Inactive) Z98.890 L4-S1 fusion in January 2017 Surgical History: - Psychiatric History: Anxiety [employer]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 Lives: Spouse/ Significant Other Smoking Status: Former smoker Alcohol: None Drugs: None - *Family History Maternal Family History: Family History (Last Reviewed 05/02/19 @ 05:04 by Juan Boggs MD) Mother Cancer Sister Cancer Asthma Grandfather CAD (coronary artery disease) Grandmother Arthritis Father Hypertension History Items: No pertinent history Paternal Family History: Family History (Last Reviewed 05/02/19 @ 05:04 by Juan Boggs MD) Mother Cancer Sister Cancer Asthma Grandfather CAD (coronary artery disease) Grandmother Arthritis Father Hypertension History Items: No pertinent history Review of Systems Comment: See HPI Patient Problems: Active and Suspected Problems (Last Updated 05/02/19 @ 04:57 by Juan Boggs MD) Pneumonia (Acute) Bronchiectasis (Acute) Objective: All imaging was personally reviewed. Patient does have bilateral bronchiectasis and some indication of small airways obstruction. No obvious rib fracture on the right is noted on my review, but not mentioned by radiologist. Patient does have severe persistent asthma and is currently on Dupixent. Patient was going to follow-up with ENT as an outpatient, but she has not been seen yet. - Physical Exam Vitals/I&O's: Vital Signs Temp Pulse Resp BP Pulse Ox 36.2 C L 77 18 130/74 H 98 05/02/19 07:54 05/02/19 07:54 05/02/19 07:54 05/02/19 07:54 05/02/19 07:54 Oxygen Flow Rate (L/min) 2 Oxygen Delivery Method Room Air Weight: 64.5 kg Body Mass Index (BMI) 24.0 Intake and Output for Last 24 Hours 04/30/19 05/01/19 05/02/19 23:59 23:59 23:59 Intake Total 200.5 / 200.5 Balance 200.5 / 200.5 General: Alert, Oriented x3, Cooperative, - - Mild conversational dyspnea. Multiple episodes of physical splinting on the right chest with deep inhalation and cough HEENT: Atraumatic, PERRLA, EOMI, Normocephalic, - - Significant sinus congestion appreciated. Postnasal drip noted. Oral: Moist Mucosa, No Gingival or Mucosal Lesions/ Ulcerations Neck: Supple, No JVD, No Nodes, Trachea Midline Lungs: No rales, Diminished, Rhonchi, Wheezes, - - Active splinting of the right chest noted. Cardiovascular: Regular rate, Regular Rhythm, Normal S1, Normal S2, No murmurs, No rub noted, No Gallop Abdomen: Bowel Sounds Present, Soft, Non Tender, Non-Distended Extremities: No clubbing, No cyanosis, No edema, Capillary Refill Less than 3 Seconds Skin: No rashes, No breakdown Musculoskeletal: No Tenderness to Palpation of Joints or Extremities Lymphatic: No Cervical, Supraclavicular, or Inguinal Adenopathy Neurological: Cranial nerves II-XII grossly intact, Neuro grossly intact, Motor Exam 5/5 strength throughout Psych/Mental Status: Alert and oriented to time, place, person, mood and affect Laboratory Results 05/02/19 02:12: WBC 6.6, RBC 3.94 L, Hgb 12.8, Hct 39.6, MCV 100.5 H, MCH 32.5 H , MCHC 32.3, RDW Std Deviation 51.8 H, RDW Coeff of Tarun 14.0, Plt Count 191, MPV 9.9, Immature Gran % (Auto) 0.800, Neut % (Auto) 52.7, Lymph % (Auto) 34.5, [place] % (Auto) 8.7, Eos % (Auto) 2.7, Baso % (Auto) 0.6, Absolute Neuts (auto) 3.5, Absolute Lymphs (auto) 2.26, Nucleated RBC % 0 05/02/19 02:12: PT 11.5 L, INR 0.9, D-Dimer Quant (PE/DVT) 0.55 H* 05/02/19 02:12: Sodium 140, Potassium 3.9, Chloride 107, Carbon Dioxide 28.0, Anion Gap 5, BUN 27 H, Creatinine 0.72, Estim Creat Clear Calc 67.27, Est GFR (MDRD) Af Amer 104, Est GFR (MDRD) Non-Af 86, BUN/Creatinine Ratio 37.3 H, Glucose 100, Calcium 8.6, Troponin I < 0.015 Current Medications Acetaminophen (Tylenol) 650 mg PO Q6H PRN PRN PRN Reason: Pain Score 1-3/Temp > 100.7 F Acyclovir (Zovirax) 400 mg PO BID [facility] Last Admin: 05/02/19 08:02 Dose: 400 mg Documented by: Albuterol Sulfate (Ventolin Aerosols) 2.5 mg INHALATION Q2H PRN PRN PRN Reason: Shortness of Breath/Wheezing Albuterol/Ipratropium (Duoneb) 3 ml INHALATION Q6H.RT [facility] Last Admin: 12/29/19 07:13 Dose: 3 ml Documented by: Artificial Tears (Tears Naturale, Artificial Tears) 1 - 2 drop EACH EYE Q2H PRN PRN PRN Reason: DRY EYES Baclofen (Lioresal) 10 mg PO QHS [facility] Diclofenac Sodium (Voltaren) 75 mg PO 0800,1500 [facility] Last Admin: 05/02/19 08:01 Dose: 75 mg Documented by: Duloxetine HCl (Cymbalta) 60 mg PO DAILY [facility] Last Admin: 05/02/19 08:01 Dose: 60 mg Documented by: Enoxaparin Sodium (Lovenox) 40 mg SC DAILY [facility] Last Admin: 05/02/19 08:01 Dose: 40 mg Documented by: Gabapentin (Neurontin) 600 mg PO QHS [facility] Gabapentin (Neurontin) 300 mg PO DAILYCM [facility] Last Admin: 05/02/19 08:01 Dose: 300 mg Documented by: Gabapentin (Neurontin) 600 mg PO LUNCH [facility] Last Admin: 05/02/19 11:29 Dose: 600 mg Documented by: Guaifenesin (Mucinex) 1,200 mg PO BID [facility] Last Admin: 05/02/19 08:00 Dose: 1,200 mg Documented by: Hydroxyzine Pamoate (Vistaril Pamoate Capsule) 25 mg PO Q8H PRN PRN PRN Reason: ANXIETY Piperacillin Sod/Tazobactam (Sod 3.375 gm/ Sodium Chloride) 50 mls @ 12.5 mls/hr IV Q8 [facility] Last Infusion: 05/02/19 11:11 Dose: Infused Documented by: Sodium Chloride () 250 mls @ 15 mls/hr IV .[id number] PRN PRN Reason: Saline Flush Last Infusion: 05/02/19 06:46 Dose: 0 mls/hr Documented by: Sodium Chloride () 250 mls @ 15 mls/hr IV .[id number] PRN PRN Reason: Additional IVPB Infusion Ondansetron HCl (Zofran) 4 mg IV Q8H PRN PRN PRN Reason: NAUSEA/VOMITING Oxycodone HCl (Oxyir) 5 mg PO Q4H PRN PRN PRN Reason: Pain Score 4-10/10 Last Admin: 05/02/19 10:36 Dose: 5 mg Documented by: Pantoprazole Sodium (Protonix) 20 mg PO DAILY [facility] Last Admin: 05/02/19 08:02 Dose: 20 mg Documented by: [facility] Last Admin: 05/02/19 08:02 Dose: 10 meq Documented by: Senna/Docusate Sodium (Senokot-S, Petra-Colace) 2 tablet PO BID PRN PRN PRN Reason: Constipation Sodium Chloride () 10 - 40 ml IV UD PRN PRN Reason: SALINE FLUSH Zolpidem Tartrate (Ambien (Generic)) 5 mg PO QHS PRN PRN PRN Reason: INSOMNIA Clinical Impression(s) from Imaging Studies Chest X-Ray 05/02/19 02:30 IMPRESSION: Left lower lobe airspace disease likely representing pneumonia. at 0305 Reported and signed by: José Bar MD Electronically Signed: José Bar MD at 3:04 EST Tel , Service support , Chest CTA 05/02/19 03:04 IMPRESSION: No pulmonary embolism, aortic aneurysm, or aortic dissection. Multifocal airspace disease. Within the lung bases it appears to be mostly atelectasis. There is evidence of chronic bronchitis and bronchiolitis with soft tissue filling the lumen of several bronchioles. Bronchiolitis is within the differential. Pneumonia is within the differential. There is some more diffuse airspace disease, or less associated with the bronchioles within the right upper lobe and perihilar region of the right middle lobe. This could also represent pneumonia or bronchiolitis. There are a few bullae within the upper lungs suggestive of paraseptal emphysema. Coronary artery calcific ASCVD. Individualized dose optimization techniques were used for this CT. at 0354 Reported and signed by: José Bar MD Electronically Signed: José Bar MD at 3:53 EST Tel , Service support , Assessment/Plan All Active Problems (Last Updated 05/02/19 @ 04:57 by Juan Boggs MD) Pneumonia (Acute) Bronchiectasis (Acute) RECOMMENDATIONS: 1. Consult pain management for possible rib block 2. Consider initiation of prednisone therapy 3. ENT evaluation (inpatient versus outpatient per hospitalist) 4. Walking oximetry prior to discharge IMPRESSIONS: 1. Intractable right rib pain Likely secondary to coughing. Appears to be related to the intercostal musculature as no fracture is obvious to me on review of the CT scan. Unfortunately, if left at its current state, pulmonary toileting will suffer and patient will likely end up with pneumonia. Patient is on narcotics at this time with little improvement. Patient may benefit from a rib block. Will consult pain management for recommendations. Patient does have a history of chronic back pain status post surgery. 2. Severe persistent asthma/bronchiectasis with exacerbation Clinical suspicion for sinusitis as the etiology. Patient was on Augmenti n as an outpatient. Patient is currently on Zosyn. Patient is not reporting fevers, chills, nausea or vomiting. Patient will need to have aggressive pulmonary toileting, which is currently limited by rib pain. Patient does not have any significant leukocytosis to suggest systemic issues. Patient can be placed on prednisone as this may help with pulmonary toileting and rib pain. 3. Thoracolumbar scoliosis/osteopenia/chronic pain syndrome Patient with recent back surgery to help with her alignment. Patient does have significant pain at baseline and this may limit her ability to achieve appropriate pulmonary toileting. May attempt vest therapy during hospitalization to see how she tolerates. 4. Neuropathic pain/HSV/history of constipation Complicates care, management, recovery and prognosis. Patient would benefit from a bowel regimen to avoid constipation complicating hospital course. DVT and GI prophylaxis appropriate. Code Visit Inpatient E&M: 68514 Init Hosp L2
--- NOTE | 2019-05-02 16:29 | PCM.HOSP.N ---
Hospitalist Note Patient was seen and examined today briefly, pulmonary medicine wanted pain management to see the patient for a nerve block over her right rib area, I was unable to schedule this due to the fact that Dr. Briones is out this week and Dr. Montelongo does not feel it is appropriate to do this. I have decided to place the patient on IV Decadron and place Lidoderm patches over the area of right rib pain. Patient will need to be reevaluated tomorrow.
[2019-05-02] MEDS: Lidocaine 5% Patch 2 PATCH TOPICAL (16:50)
[2019-05-02] MEDS: diazePAM 5 MG Tablet PO (17:49)
[2019-05-02] MEDS: Ketorolac 30 MG/ML Syringe IV (17:50)
[2019-05-02] MEDS: dexAMETHasone 4 MG/ML Vial IV (21:50)
[2019-05-02] MEDS: Zolpidem Tartrate 5 MG Tablet PO (21:50)
[2019-05-02] MEDS: Baclofen 10 MG Tablet PO (21:51)
[2019-05-03] MEDS: Ipratropium/Albuterol Sulfate 3 ML AMPUL.NEB INHALATION ×2 (01:17→12:49)
[2019-05-03 01:18] VITALS: PULSE 88; RESP 18; O2SAT 88
[2019-05-03 03:25] VITALS: BP 122/78; PULSE 98; RESP 16; TEMP 36.1; O2SAT 94
[2019-05-03] MEDS: dexAMETHasone 4 MG/ML Vial IV (05:56)
[2019-05-03 07:20] VITALS: O2SAT 93
--- NOTE | 2019-05-03 07:49 | PCM.PN.PUL ---
Subjective: The patient was seen and examined at the bedside this morning. Events from the last 24 hours have been reviewed. The patient is currently afebrile, hemodynamically stable and maintaining appropriate oxygen saturations on room air. Breathing quality appears to be baseline. Pain persists. Objective: The patient's most recent lab work, culture data and imaging studies have all been personally reviewed. - Physical Exam Vitals/I&O's: Vital Signs Temp Pulse Resp BP Pulse Ox 97.0 F L 98 16 122/78 H 93 05/03/19 03:25 05/03/19 03:25 05/03/19 03:25 05/03/19 03:25 05/03/19 07:20 Oxygen Flow Rate (L/min) 2 Oxygen Delivery Method Room Air Weight: 142 lb 3.17 oz Body Mass Index (BMI) 24.0 Intake and Output for Last 24 Hours 05/01/19 05/02/19 05/03/19 23:59 23:59 23:59 Intake Total 1292.0 / 1292.0 109 / 109 Balance 1292.0 / 1292.0 109 / 109 General: Alert, Cooperative, No apparent distress HEENT: Atraumatic, Normocephalic Oral: No Gingival or Mucosal Lesions/ Ulcerations Neck: Supple, No Nodes, Trachea Midline Lungs: Diminished, Wheezes Cardiovascular: Regular rate, Regular Rhythm, Normal S1, Normal S2, No murmurs Abdomen: Bowel Sounds Present, Soft, Non Tender Extremities: No clubbing, No cyanosis, No edema Skin: No breakdown Musculoskeletal: No Tenderness to Palpation of Joints or Extremities Lymphatic: No Cervical, Supraclavicular, or Inguinal Adenopathy Neurological: Neuro grossly intact Psych/Mental Status: Normal Affect, Appropriate Labs (Last 48 Hours) 05/02/19 05/02/19 05/02/19 02:12 02:12 02:12 WBC 6.6 RBC 3.94 L Hgb 12.8 Hct 39.6 MCV 100.5 H MCH 32.5 H MCHC 32.3 RDW Std Deviation 51.8 H RDW Coeff of Tarun 14.0 Plt Count 191 MPV 9.9 Immature Gran % (Auto) 0.800 Neut % (Auto) 52.7 Lymph % (Auto) 34.5 [place] % (Auto) 8.7 Eos % (Auto) 2.7 Baso % (Auto) 0.6 Absolute Neuts (auto) 3.5 Absolute Lymphs (auto) 2.26 Nucleated RBC % 0 PT 11.5 L INR 0.9 D-Dimer Quant (PE/DVT) 0.55 H* Sodium 140 Potassium 3.9 Chloride 107 Carbon Dioxide 28.0 Anion Gap 5 BUN 27 H Creatinine 0.72 Estim Creat Clear Calc 67.27 Est GFR (MDRD) Af Amer 104 Est GFR (MDRD) Non-Af 86 BUN/Creatinine Ratio 37.3 H Glucose 100 Calcium 8.6 Troponin I < 0.015 Clinical Impression(s) from Imaging Studies Chest X-Ray 05/02/19 02:30 IMPRESSION: Left lower lobe airspace disease likely representing pneumonia. at 0305 Reported and signed by: José Bar MD Electronically Signed: José Bar MD at 3:04 EST Tel , Service support , Chest CTA 05/02/19 03:04 IMPRESSION: No pulmonary embolism, aortic aneurysm, or aortic dissection. Multifocal airspace disease. Within the lung bases it appears to be mostly atelectasis. There is evidence of chronic bronchitis and bronchiolitis with soft tissue filling the lumen of several bronchioles. Bronchiolitis is within the differential. Pneumonia is within the differential. There is some more diffuse airspace disease, or less associated with the bronchioles within the right upper lobe and perihilar region of the right middle lobe. This could also represent pneumonia or bronchiolitis. There are a few bullae within the upper lungs suggestive of paraseptal emphysema. Coronary artery calcific ASCVD. Individualized dose optimization techniques were used for this CT. at 0354 Reported and signed by: José Bar MD Electronically Signed: José Bar MD at 3:53 EST Tel , Service support , Current Medications Acetaminophen (Tylenol) 650 mg PO Q6H PRN PRN PRN Reason: Pain Score 1-3/Temp > 100.7 F Acyclovir (Zovirax) 400 mg PO BID [facility] Last Admin: 05/02/19 21:56 Dose: Not Given Documented by: Albuterol Sulfate (Ventolin Aerosols) 2.5 mg INHALATION Q2H PRN PRN PRN Reason: Shortness of Breath/Wheezing Albuterol/Ipratropium (Duoneb) 3 ml INHALATION Q6H.RT [facility] Last Admin: 05/03/19 07:20 Dose: Not Given Documented by: Artificial Tears (Tears Naturale, Artificial Tears) 1 - 2 drop EACH EYE Q2H PRN PRN PRN Reason: DRY EYES Baclofen (Lioresal) 10 mg PO QHS [facility] Last Admin: 05/02/19 21:51 Dose: 10 mg Documented by: Dexamethasone Sodium Phosphate (Decadron) 4 mg IV Q8 [facility] Last Admin: 05/03/19 05:56 Dose: 4 mg Documented by: Diclofenac Sodium (Voltaren) 75 mg PO 0800,1500 [facility] Last Admin: 05/02/19 15:05 Dose: 75 mg Documented by: Duloxetine HCl (Cymbalta) 60 mg PO DAILY [facility] Last Admin: 05/02/19 08:01 Dose: 60 mg Documented by: Enoxaparin Sodium (Lovenox) 40 mg SC DAILY [facility] Last Admin: 05/02/19 08:01 Dose: 40 mg Documented by: Gabapentin (Neurontin) 600 mg PO QHS [facility] Last Admin: 05/02/19 21:51 Dose: 600 mg Documented by: Gabapentin (Neurontin) 300 mg PO DAILYCM [facility] Last Admin: 05/02/19 08:01 Dose: 300 mg Documented by: Gabapentin (Neurontin) 600 mg PO LUNCH [facility] Last Admin: 05/02/19 11:29 Dose: 600 mg Documented by: Guaifenesin (Mucinex) 1,200 mg PO BID [facility] Last Admin: 05/02/19 21:51 Dose: 1,200 mg Documented by: Hydroxyzine Pamoate (Vistaril Pamoate Capsule) 25 mg PO Q8H PRN PRN PRN Reason: ANXIETY Piperacillin Sod/Tazobactam (Sod 3.375 gm/ Sodium Chloride) 50 mls @ 12.5 mls/hr IV Q8 [facility] Last Admin: 05/03/19 05:55 Dose: 12.5 mls/hr Documented by: Sodium Chloride () 250 mls @ 15 mls/hr IV .[id number] PRN PRN Reason: Saline Flush Last Infusion: 05/03/19 05:56 Dose: 0 mls/hr Documented by: Sodium Chloride () 250 mls @ 15 mls/hr IV .[id number] PRN PRN Reason: Additional IVPB Infusion Lidocaine (Lidoderm Patch) 2 patch TOPICAL DAILY [facility]; Protocol Last Admin: 05/02/19 16:50 Dose: 2 patch Documented by: Ondansetron HCl (Zofran) 4 mg IV Q8H PRN PRN PRN Reason: NAUSEA/VOMITING Oxycodone HCl (Oxyir) 5 - 10 mg PO Q4H PRN PRN PRN Reason: Pain Score 4-10/10 Last Admin: 05/02/19 15:08 Dose: 10 mg Documented by: Pantoprazole Sodium (Protonix) 20 mg PO DAILY [facility] Last Admin: 05/02/19 08:02 Dose: 20 mg Documented by: Potassium Chloride (K-Dur) 10 meq PO DAILYCM [facility] Last Admin: 05/02/19 08:02 Dose: 10 meq Documented by: Senna/Docusate Sodium (Senokot-S, Petra-Colace) 2 tablet PO BID PRN PRN PRN Reason: Constipation Sodium Chloride () 10 - 40 ml IV UD PRN PRN Reason: SALINE FLUSH Zolpidem Tartrate (Ambien (Generic)) 5 mg PO QHS PRN PRN PRN Reason: INSOMNIA Last Admin: 05/02/19 21:50 Dose: 5 mg Documented by: Medical Necessity - Tobacco Use Smoking Status: Former smoker Assessment/Plan All Active Problems (Last Updated 05/03/19 @ 09:54 by Calrke Banda MD) Pneumonia (Resolved) Neuropathic pain (Acute) RECOMMENDATIONS: 1. Continue current pain control regimen. 2. Continue antibiotics per outpatient regimen along with corticosteroids. 3. Perform walking oximetry study prior to consideration for discharge home. 4. Outpatient pulmonary follow-up within 2 weeks of discharge. IMPRESSIONS: 1. Intractable right rib pain Likely secondary to chronic, persistent coughing. Continue current pain control regimen. The patient may benefit from outpatient pain management follow-up. 2. Severe persistent asthma/bronchiectasis with exacerbation Suspect sinusitis as etiology for exacerbation. Continue Augmentin per outpatient regimen along with bronchopulmonary hygiene and prednisone. Outpatient pulmonary follow-up within 2 weeks of discharge is recommended. 3. Neuropathic pain/HSV/history of constipation/chronic pain syndrome Complicates care, management, recovery and prognosis. Continue home medications as indicated. This note was generated with [employer] dictation software. It may contain incorrect words, spelling, and punctuation that were not noted in checking the note before signing. Code Visit Inpatient E&M: 99059 Subs Hosp L2
[2019-05-03 08:55] VITALS: BP 141/88; PULSE 100; RESP 18; TEMP 36.4; O2SAT 93
[2019-05-03] MEDS: Pantoprazole Sodium 20 MG Tablet PO (08:56)
[2019-05-03] MEDS: Gabapentin 300 MG Capsule PO (08:56)
[2019-05-03] MEDS: Diclofenac 75 MG Tablet PO (08:56)
[2019-05-03] MEDS: DULoxetine Hcl 60 MG Capsule PO (08:56)
[2019-05-03] MEDS: Enoxaparin 40 MG/0.4 ML Syringe SC (08:57)
[2019-05-03] MEDS: Acyclovir 200 MG Capsule 400 MG PO (08:57)
[2019-05-03] MEDS: guaiFENesin 1,200 MG Tablet 1200 MG PO (08:58)
--- NOTE | 2019-05-03 09:54 | PCM.DC ---
- Discharge Diagnoses Current Active Problems: Current Active and Chronic Problems (Last Updated 05/02/19 @ 04:57 by Juan Boggs MD) Pneumonia (Acute) Bronchiectasis (Acute) You will use the following diet at home:: No restrictions Discharge Activity: May not drive while taking narcotic pain medications. Allergies/Adverse Reactions: Allergies bacitracin Adverse Reaction (Verified 05/02/19 01:14) Itching chlorpheniramine [From Dristan Cold] Adverse Reaction (Verified 05/02/19 01:14) Other loratadine [From Claritin-D] Adverse Reaction (Verified 05/02/19 01:14) Other morphine Adverse Reaction (Verified 05/02/19 01:14) Nausea phenylephrine [From Dristan Cold] Adverse Reaction (Verified 05/02/19 01:14) Other pseudoephedrine [From Claritin-D] Adverse Reaction (Verified 05/02/19 01:14) Other tramadol Adverse Reaction (Verified 05/02/19 01:14) Vomiting novacaine Adverse Reaction (Uncoded 05/02/19 01:14) Unknown Medications to take at Discharge Hydroxyzine HCl 25 mg PO Q8 PRN 08/21/16 Valacyclovir HCl [Valacyclovir] 500 mg PO DAILY 08/21/16 Baclofen 10 mg PO QHS 05/25/17 Cod Liver Oil 1 ea PO DAILY 05/25/17 Oxycodone [Oxyir] 5 mg PO BID PRN PRN 05/25/17 Potassium Citrate [Urocit-K] 10 meq PO DAILY 05/25/17 gabapentin 300 mg capsule 300 mg PO DAILY cap 03/02/18 gabapentin 300 mg capsule 600 mg PO LUNCH cap 03/02/18 Gabapentin [Gralise] 600 mg PO QHS 03/04/18 diclofenac sodium 75 mg tablet,delayed release 75 mg PO 0800,1500 05/01/18 ipratropium 20 mcg-albuterol 100 mcg/actuation mist for inhalation 1 puff INHALATION Q6H PRN 05/01/18 magnesium 200 mg tablet 400 mg PO DAILY tab 05/01/18 Budesonide/Formoterol 160/4.5 [Symbicort 160/4.5 Mcg Inhaler (SP)] 2 puff INHALATION BID 04/06/19 CycloSPORINE Ophthalmic [Restasis Ophthalmic] 1 drp EACH EYE BID 04/06/19 Dupilumab [Dupixent] 300 mg SUBCUT Q2W 04/06/19 Esomeprazole Mag Trihydrate [Nexium] 10 mg PO DAILY 04/06/19 Duloxetine Hcl [Cymbalta] 60 mg PO DAILY 04/07/19 Guaifenesin [Mucinex] 1,200 mg PO BID #14 tab 04/10/19 amoxicillin 875 mg-potassium clavulanate 125 mg tablet 1 tab PO BID #28 tab 04/26/19 multivitamin 1 cap PO DAILY 04/26/19 vitamin K2 40 mcg tablet 40 mcg PO DAILY 04/26/19 Lorazepam [Ativan] 1 mg PO TID PRN PRN 5 Days #15 tab 05/03/19 Prednisone 10 mg PO UD #30 tab 05/03/19 The following prescriptions were given: Lorazepam [Ativan] 1 mg PO TID PRN PRN 5 Days #15 tab PRN Reason: Pain Score 1-10/10 Prescription Printed Prednisone 10 mg PO UD #30 tab Prescription Printed Primary Care Physician: Julian Asher MD [Primary Care Provider] - Please follow up with your Primary Care Physician in: in 3-5 days Test Results: Test results from this visit will be discussed in further detail at your follow-up appointment, if applicable. Please Follow Up With: Kaden Montelongo When: in 2-3 days Proposed Discharge Date: 05/03/19
--- NOTE | 2019-05-03 09:57 | DS.PCM_ITS ---
Discharge Date and Diagnosis Date of Admission: 05/02/19 Date of Discharge: 05/03/19 - Primary Discharge Diagnosis Acute disease with acute exacerbation Intractable pain - Secondary Discharge Diagnosis Chronic Problems (Last Updated 05/02/19 @ 04:57 by Juan Boggs MD) Bronchiectasis (Chronic) Scoliosis of thoracolumbar spine (Chronic) Lung nodule (Chronic) Asthma (Chronic) Lumbar disc disease (Chronic) Nephrolithiasis (Chronic) Rhinitis (Chronic) COPD (chronic obstructive pulmonary disease) (Chronic) Hospital Course and Treatment Imaging Results: Clinical Impression(s) from Imaging Studies Chest X-Ray 05/02/19 02:30 IMPRESSION: Left lower lobe airspace disease likely representing pneumonia. at 0305 Reported and signed by: José Bar MD Electronically Signed: José Bar MD at 3:04 EST Tel , Service support , Chest CTA 05/02/19 03:04 IMPRESSION: No pulmonary embolism, aortic aneurysm, or aortic dissection. Multifocal airspace disease. Within the lung bases it appears to be mostly atelectasis. There is evidence of chronic bronchitis and bronchiolitis with soft tissue filling the lumen of several bronchioles. Bronchiolitis is within the differential. Pneumonia is within the differential. There is some more diffuse airspace disease, or less associated with the bronchioles within the right upper lobe and perihilar region of the right middle lobe. This could also represent pneumonia or bronchiolitis. There are a few bullae within the upper lungs suggestive of paraseptal emphysema. Coronary artery calcific ASCVD. Individualized dose optimization techniques were used for this CT. at 0354 Reported and signed by: José Bar MD Electronically Signed: José Bar MD at 3:53 EST Tel , Service support , Summary of Care Provided: The patient is a 64 year old F with history of bronchiectasis who presented with exertional dyspnea shortness of breath cough as well as current pain involving the right rib area 1. Acute exacerbation of bronchiectasis. Patient was admitted to regular nursing floor managed with bronchodilator treatment antibiotics chest physiotherapy incentive spirometry and consult placed to pulmonary medicine patient did improve with therapy discharged home on tapering dose of steroid already on Augmentin was instructed to continue patient was expected to stay for at least 2 midnight however her recovery was much quicker than anticipated discharge the day after admission 2. Right rib area neuropathic pain patient was managed with Decadron and Lidoderm patch in addition to Valium plan is for patient to follow-up with pain management as outpatient for possible steroid injection 3. Depression patient is on Cymbalta 4. DVT prophylaxis Lovenox - Physical Exam Vitals/I&O's: Vital Signs Temp Pulse Resp BP Pulse Ox 97.6 F L 100 18 141/88 H 93 05/03/19 08:55 05/03/19 08:55 05/03/19 08:55 05/03/19 08:55 05/03/19 08:55 Oxygen Flow Rate (L/min) 2 Oxygen Delivery Method Room Air Weight: 64.5 kg Body Mass Index (BMI) 24.0 Intake and Output for Last 24 Hours 05/01/19 05/02/19 05/03/19 23:59 23:59 23:59 Intake Total 1292.0 / 1292.0 109 / 109 Balance 1292.0 / 1292.0 109 / 109 General: Alert HEENT: Atraumatic Lungs: Diminished, Rhonchi Cardiovascular: Regular rate, Regular Rhythm Current Medications Acetaminophen (Tylenol) 650 mg PO Q6H PRN PRN PRN Reason: Pain Score 1-3/Temp > 100.7 F Acyclovir (Zovirax) 400 mg PO BID [facility] Last Admin: 05/03/19 08:57 Dose: 400 mg Documented by: Albuterol Sulfate (Ventolin Aerosols) 2.5 mg INHALATION Q2H PRN PRN PRN Reason: Shortness of Breath/Wheezing Albuterol/Ipratropium (Duoneb) 3 ml INHALATION Q6H.RT [facility] Last Admin: 05/03/19 07:20 Dose: Not Given Documented by: Artificial Tears (Tears Naturale, Artificial Tears) 1 - 2 drop EACH EYE Q2H PRN PRN PRN Reason: DRY EYES Baclofen (Lioresal) 10 mg PO QHS [facility] Last Admin: 05/02/19 21:51 Dose: 10 mg Documented by: Dexamethasone Sodium Phosphate (Decadron) 4 mg IV Q8 [facility] Last Admin: 05/03/19 05:56 Dose: 4 mg Documented by: Diclofenac Sodium (Voltaren) 75 mg PO 0800,1500 [facility] Last Admin: 05/03/19 08:56 Dose: 75 mg Documented by: Duloxetine HCl (Cymbalta) 60 mg PO DAILY [facility] Last Admin: 05/03/19 08:56 Dose: 60 mg Documented by: Enoxaparin Sodium (Lovenox) 40 mg SC DAILY [facility] Last Admin: 05/03/19 08:57 Dose: 40 mg Documented by: Gabapentin (Neurontin) 600 mg PO QHS [facility] Last Admin: 05/02/19 21:51 Dose: 600 mg Documented by: Gabapentin (Neurontin) 300 mg PO DAILYCM [facility] Last Admin: 05/03/19 08:56 Dose: 300 mg Documented by: Gabapentin (Neurontin) 600 mg PO LUNCH [facility] Last Admin: 05/02/19 11:29 Dose: 600 mg Documented by: Guaifenesin (Mucinex) 1,200 mg PO BID [facility] Last Admin: 05/03/19 08:58 Dose: 1,200 mg Documented by: Hydroxyzine Pamoate (Vistaril Pamoate Capsule) 25 mg PO Q8H PRN PRN PRN Reason: ANXIETY Piperacillin Sod/Tazobactam (Sod 3.375 gm/ Sodium Chloride) 50 mls @ 12.5 mls/hr IV Q8 [facility] Last Admin: 05/03/19 05:55 Dose: 12.5 mls/hr Documented by: Sodium Chloride () 250 mls @ 15 mls/hr IV .[id number] PRN PRN Reason: Saline Flush Last Infusion: 05/03/19 05:56 Dose: 0 mls/hr Documented by: Sodium Chloride () 250 mls @ 15 mls/hr IV .[id number] PRN PRN Reason: Additional IVPB Infusion Lidocaine (Lidoderm Patch) 2 patch TOPICAL DAILY [facility]; Protocol Last Admin: 05/02/19 16:50 Dose: 2 patch Documented by: Ondansetron HCl (Zofran) 4 mg IV Q8H PRN PRN PRN Reason: NAUSEA/VOMITING Oxycodone HCl (Oxyir) 5 - 10 mg PO Q4H PRN PRN PRN Reason: Pain Score 4-10/10 Last Admin: 05/02/19 15:08 Dose: 10 mg Documented by: Pantoprazole Sodium (Protonix) 20 mg PO DAILY [facility] Last Admin: 05/03/19 08:56 Dose: 20 mg Documented by: Potassium Chloride (K-Dur) 10 meq PO DAILYCM [facility] Last Admin: 05/03/19 08:56 Dose: 10 meq Documented by: Senna/Docusate Sodium (Senokot-S, Petra-Colace) 2 tablet PO BID PRN PRN PRN Reason: Constipation Sodium Chloride () 10 - 40 ml IV UD PRN PRN Reason: SALINE FLUSH Zolpidem Tartrate (Ambien (Generic)) 5 mg PO QHS PRN PRN PRN Reason: INSOMNIA Last Admin: 05/02/19 21:50 Dose: 5 mg Documented by: Discharge Diet: No Restrictions Discharge Activity: May not drive while taking narcotic pain medications. Home Medications: Medications to take at Discharge Hydroxyzine HCl 25 mg PO Q8 PRN 08/21/16 Valacyclovir HCl [Valacyclovir] 500 mg PO DAILY 08/21/16 Baclofen 10 mg PO QHS 05/25/17 Cod Liver Oil 1 ea PO DAILY 05/25/17 Oxycodone [Oxyir] 5 mg PO BID PRN PRN 05/25/17 Potassium Citrate [Urocit-K] 10 meq PO DAILY 05/25/17 gabapentin 300 mg capsule 300 mg PO DAILY cap 03/02/18 gabapentin 300 mg capsule 600 mg PO LUNCH cap 03/02/18 Gabapentin [Gralise] 600 mg PO QHS 03/04/18 diclofenac sodium 75 mg tablet,delayed release 75 mg PO 0800,1500 05/01/18 ipratropium 20 mcg-albuterol 100 mcg/actuation mist for inhalation 1 puff INHALATION Q6H PRN 05/01/18 magnesium 200 mg tablet 400 mg PO DAILY tab 05/01/18 Budesonide/Formoterol 160/4.5 [Symbicort 160/4.5 Mcg Inhaler (SP)] 2 puff INHALATION BID 04/06/19 CycloSPORINE Ophthalmic [Restasis Ophthalmic] 1 drp EACH EYE BID 04/06/19 Dupilumab [Dupixent] 300 mg SUBCUT Q2W 04/06/19 Esomeprazole Mag Trihydrate [Nexium] 10 mg PO DAILY 04/06/19 Duloxetine Hcl [Cymbalta] 60 mg PO DAILY 04/07/19 Guaifenesin [Mucinex] 1,200 mg PO BID #14 tab 04/10/19 amoxicillin 875 mg-potassium clavulanate 125 mg tablet 1 tab PO BID #28 tab 04/26/19 multivitamin 1 cap PO DAILY 04/26/19 vitamin K2 40 mcg tablet 40 mcg PO DAILY 04/26/19 Lorazepam [Ativan] 1 mg PO TID PRN PRN 5 Days #15 tab 05/03/19 Prednisone 10 mg PO UD #30 tab 05/03/19 Following Prescrptions Were Given to Patient: Lorazepam [Ativan] 1 mg PO TID PRN PRN 5 Days #15 tab PRN Reason: Pain Score 1-10/10 Prescription Printed Prednisone 10 mg PO UD #30 tab Prescription Printed Primary Care Physician: Julian Asher MD [Primary Care Provider] - Please follow up with your Primary Care Physician in: in 3-5 days Please Follow Up With: Kaden Montelongo When: in 2-3 days Disposition: Home Minutes spent on discharge:: 35 Patient Condition:: Stable Medical Necessity - Tobacco Use Smoking Status: Former smoker Meaningful Use Info Meaningful Use Diagnoses (Choose all that apply): None applicable Code Visit Inpatient E&M: 10470 Disch Hosp
[2019-05-03] MEDS: Gabapentin 600 MG Tablet PO (11:41)
[2019-05-03] MEDS: oxyCODONE 5 MG Tablet PO (11:43)
--- NOTE | 2019-05-03 12:13 | CASEMGMT ---
[facility] CM Readmission Note Previous Admission: 04/06/19-04/10/19 Diagnosis: Bronchiectasis DC Disposition: Home. Pt had appt made with Dr. Terrazas for Friday, May 04, 2019 @ 5937 Current Admission: exacerbation bronchiectasis. plan is for dc today. F/U tomorrow with pulmonology. Pt did not qualify for home oxygen. DC PLAN: Home
[2019-05-03 13:17] VITALS: PULSE 83; RESP 19
== END 2019-05-03 13:04 | disposition home or self-care (01) | DRG 192 ==
LOC: ED 04:17 → MS3 05:04
PROVIDERS: Admitting Provider Hospitalist; Emergency Provider Emergency Medicine; Family Provider Family Medicine; PCP Family Medicine; Visit Provider Internal Medicine
DX: J47.1 Bronchiectasis with (acute) exacerbation (principal); J47.0 Bronchiectasis with acute lower respiratory infection; J18.9 Pneumonia, unspecified organism; Y95 Nosocomial condition; F32.9 Major depressive disorder, single episode, unspecified; M41.35 Thoracogenic scoliosis, thoracolumbar region; J45.50 Severe persistent asthma, uncomplicated; R07.81 Pleurodynia; J32.9 Chronic sinusitis, unspecified; Z87.891 Personal history of nicotine dependence; M51.9 Unspecified thoracic, thoracolumbar and lumbosacral intervertebral disc disorder; M79.2 Neuralgia and neuritis, unspecified
CPT/HCPCS: 71046; 71275; 80048; 84484; 85025; 85379; 85610; 93005; 94640; 94667; 94668; 99251; 99285; J7050; Q9967; A4216; G0463

== ENCOUNTER → 2019-05-31 | Outpatient (CLI) | payer MEDICARE, OTHER, SELFPAY ==
[2019-05-02 05:48] VITALS: BMI 24.0
== END | disposition home or self-care (01) ==
PROVIDERS: PCP Family Medicine; Visit Provider Nurse Practitioner Acute Care
DX: J47.9 Bronchiectasis, uncomplicated (principal)
CPT/HCPCS: 87070; 87077; 87186; 87205

== ENCOUNTER 2019-06-27 07:43 | Emergency (ER) | payer MEDICARE, OTHER, SELFPAY ==
[2019-05-02 05:48] VITALS: BMI 24.0
[2019-06-27 07:44] VITALS: BP 137/100; PULSE 85; RESP 17; TEMP 36.7; O2SAT 91; BMI 24.7
--- NOTE | 2019-06-27 07:53 | EKG12_ITS ---
Test Reason : SOB Blood Pressure : / mmHG Vent. Rate : 076 BPM Atrial Rate : 076 BPM P-R Int : 152 ms QRS Dur : 080 ms QT Int : 404 ms P-R-T Axes : 036 -11 026 degrees QTc Int : 454 ms Normal sinus rhythm Minimal voltage criteria for LVH, may be normal variant Borderline ECG Confirmed by RAVI LEES, CARLINE ([id number]), communications editor ZAK CARNEY ([id number]) on 06/30/2019 1:55:53 PM Referred By: MERISSA Confirmed By:CARLINE RODRIGUES MD
--- NOTE | 2019-06-27 07:53 | RAD_ITS ---
STUDY: X-RAY CHEST REASON FOR EXAM: Female, 64 years old. CHEST PAIN TECHNIQUE: Single AP portable upright view of the chest. COMPARISON: PA and lateral chest x-ray May 02, 2019. CTA chest that same day not available for comparison, but report of that study was reviewed. FINDINGS: The lungs are under expanded to a greater degree than on previous study. Ill-defined density in the left base may be atelectasis or evolving infiltrate. Stable minor linear scarring in the right mid lung along the minor fissure. There is no demonstrated pleural abnormality. Normal size heart. Normal mediastinum and stanislaw. Normal visualized pulmonary arteries. Normal visualized aortic arch and descending thoracic aorta. Stable mild S-shaped scoliosis of the thoracic spine. Normal visualized ribs, clavicles, and shoulders. There is no demonstrated abnormality of the visualized soft tissue structures of the upper abdomen. RAD/Chest 1 View (Portable) IMPRESSION: Poor inspiratory effort with question of worsening subsegmental volume loss or infiltrate in the left base. Electronically Signed: Cosme Echevarria MD at 8:19 EST , Service support ,
[2019-06-27 08:15] VITALS: O2SAT 91
--- NOTE | 2019-06-27 08:20 | RAD_ITS ---
STUDY: X-RAY CHEST REASON FOR EXAM: Female, 64 years old. LATERAL CXR ONLY, PT HAD AN AP EARLIER IN THE DAY, DYSPNEA, POSSIBLE PNEUMONIA TECHNIQUE: Single lateral view COMPARISON: June 27, 2019 at 07:59 hours. FINDINGS: The lungs are expanded. Interstitial prominence is noted. Normal size heart. Normal mediastinum and stanislaw. Normal visualized pulmonary arteries. Normal visualized aortic arch and descending thoracic aorta. Normal visualized thoracic spine. Normal visualized ribs, clavicles, and shoulders. There is no demonstrated abnormality of the visualized soft tissue structures of the upper abdomen. RAD/Chest 1 View IMPRESSION: Interstitial prominence. Electronically Signed: Julius Carbera DO at 9:44 EST Tel [phone], Service support ,
--- NOTE | 2019-06-27 08:22 | ED.DCSUM_ITS ---
- ER Visit Summary Date of Service: 06/27/19 Chief Complaint: Shortness of breath, body aches and fever. History of Present Illness: The patient is a [address] bronchiectasis and recurrent pneumonia. Patient also has asthma. Her last admission was around April. Says she is been short of breath this past week with fever as high as 1012 and diffuse body aches. Cough of green to brown sputum. No hemoptysis. No leg pain or swelling. No history of prior DVT or PE. No cardiac history. States she feels like she did when she is had pneumonia in the past. Physical Examination: Older female no acute distress accompanied by her . Vital signs are stable. Currently she is afebrile her temperature is 98. Her pulse ox 91% on room air borderline hypoxia. H EENT exam dry mucous membranes. Otherwise unremarkable neck nontender no JVD. Lungs clear to auscultation bi laterally. Heart regular rhythm rate about 80 no murmur. Chest were nontender. Abdomen soft nontender normal bowel sounds no peritoneal signs. Extremities moves all 4. Calves nontender without edema or cords. Neurologically she is awake and alert with no focal motor deficits. Test Results: EKG shows a normal sinus rhythm rate of 76 with no acute signs of IL or ischemia. Chest x-ray AP lateral view shows no acute abnormality read by me and the radiologist. CBC normal white count 9. Hemoglobin 13. Chemistries unremarkable BUN 29 creatinine 0.7. Troponin normal. Emergency Department Course and Treatment: Treated with a liter normal saline. Work-up for possible pneumonia. Treatment Plan: Patient be started on Levaquin 1 pill a day 750 mg for 10 days. First dose given in the ER. Disposition: discharge to home Impression: Acute dyspnea secondary to bronchitis rule out early pneumonia This note was generated with [employer] software. It may contain incorrect words, spelling, and punctuation that were not noted in review of the chart prior to signing ED Disposition - Plan for ED Patient: Referrals: Julian Asher MD [Primary Care Provider] -
[2019-06-27 08:39] LABS: Absolute Lymphocyte Count 2.12 X10^3/uL (0.83-4.51); Absolute Neutrophil Count 5.2 X10^3/uL (2.0-7.7); Basophil# 0.08 X10^3/uL; Basophil% 0.9 % (0-1); Eosinophil# 0.74 X10^3/uL; Eosinophils% 8.2 % (0-5); Hematocrit 41.6 % (37-47); Hemoglobin 13.3 g/dL (12.0-15.0); Lymphocyte # 2.12 X10^3/ul (4.0); Lymphocyte % 23.5 % (19-41); Mean Platelet Vol. 10.2 fl (6.2-12.0); Monocyte# 0.71 X10^3/uL; Monocyte% 7.9 % (0-10); NRBC Flagged by Analyzer 0 % (0-5); Neutrophil # 5.23 X10^3/uL (2.7-7.7); Neutrophil % 58.1 % (47-70); Platelet Count 284 K/mm3 (150-450); RBC Distribution Width CV 13.7 % (11.6-14.6); RBC Distribution Width SD 48.8 fl (35.1-43.9); Red Blood Count 4.29 M/mm3 (4.2-5.4)
[2019-06-27 08:52] LABS: Anion Gap 5 (5-15); BUN 29 mg/dL (7-18); BUN/Creat Ratio 37.2 RATIO (10-20); Calcium,Total 9.3 mg/dL (8.5-10.1); Chloride 110 mmol/L (98-107); Creatinine, Serum 0.78 mg/dL (0.55-1.02); EST Glomerular Filtration Rate 79 mL/min (>60); Est Glom Filt Rate - Afr Amer 95 mL/min (>60); Estimated Creatinine Clearance 62.09 ml/min; Glucose 107 mg/dL (74-106); Sodium Level 141 mmol/L (136-145)
[2019-06-27 09:46] VITALS: RESP 15; O2SAT 93
--- NOTE | 2019-06-27 10:51 | ED.DEP ---
ED Disposition - Plan for ED Patient: Disposition: Home or Assisted Living Instructions: BRONCHITIS, Antiobiotic Treatment (Adult) Prescriptions: Levofloxacin [Levaquin] 750 mg PO DAILY #9 tab Prescription Printed Referrals: Julian Asher MD [Primary Care Provider] - 3-5 Days if not improving Additional Instructions: Fluids and rest. Levaquin once daily. Tylenol and Motrin for pain or fever. Follow-up with your doctor.
[2019-06-27 10:53] VITALS: BP 143/102; PULSE 83; RESP 15; O2SAT 92
[2019-06-27] MEDS: levoFLOXacin 750 MG Tablet PO (10:53)
--- NOTE | 2019-06-27 19:07 | EKG12_ITS ---
Test Reason : SOB/CP Blood Pressure : / mmHG Vent. Rate : 072 BPM Atrial Rate : 072 BPM P-R Int : 140 ms QRS Dur : 084 ms QT Int : 412 ms P-R-T Axes : 029 009 049 degrees QTc Int : 451 ms Normal sinus rhythm Normal ECG Confirmed by JACINDA REA ([id number]), sound editor MARY ANN HORNE ([id number]) on 06/29/2019 2:19:18 PM Referred By: KELLI LI Confirmed By:JACINDA REA
== END 2019-06-27 10:58 | disposition home or self-care (01) ==
PROVIDERS: Emergency Provider Emergency Medicine; PCP Family Medicine
DX: J40 Bronchitis, not specified as acute or chronic (principal); J45.909 Unspecified asthma, uncomplicated; Z87.01 Personal history of pneumonia (recurrent)
CPT/HCPCS: 71045; 80048; 84484; 85025; 93005; 99283; A4216

== ENCOUNTER 2019-06-27 18:55 | Inpatient (IN) | payer MEDICARE, OTHER, SELFPAY ==
[2019-06-27] VITALS (9 sets, daily range): BP systolic 106–140; BP diastolic 66–98; PULSE 70–92; RESP 14–18; TEMP 36.4–36.8; O2SAT 87–96; BMI 24.7; BMI 25.2; BMI 25.1
--- NOTE | 2019-06-27 19:05 | ED.RN ---
RN CALLED FOR EKG, PULLED OLD EKGS FOR
--- NOTE | 2019-06-27 19:56 | CT_ITS ---
We are attempting to reach an attending provider to discuss findings. An addendum with communication details will be sent when the communication is complete. STUDY: CTA CHEST REASON FOR EXAM: Female, 64 years old. INCREASED CHEST PAIN ON LEFT SINCE THIS AM. Hurts to take deep breath. Hx of pneumonia, COPD and back surgery. Repeated scan d/t IV leak. RADIATION DOSAGE (If Supplied By Facility): CTDIvol = ( 7.56 ) mGy, DLP = ( 673.10 ) mGycm TECHNIQUE: The examination was performed with the intravenous administration of Isovue 300 145ml. Post-processing of the angiographic images was performed, with multiplanar reformation and 3D reconstruction. Individualized dose optimization techniques were used for this CT. COMPARISON: 05/02/2019. FINDINGS: Normal enhancement of the main pulmonary artery and right and left pulmonary arteries. There is limited enhancement of the bilateral peripheral pulmonary arteries. There is a questionable lack of enhancement within the left apical segmental pulmonary arterial branch. Normal thoracic aorta and visualized great vessels. There is no demonstrated aortic dissection. Normal heart and pericardium. Normal mediastinum. Normal hilar regions. Normal visualized trachea and bronchi. The lungs are well expanded. Significant emphysema. Biapical scarring right greater than left. Bibasilar bronchiectasis and consolidative changes at the left base. The consolidative process at the left base has a somewhat masslike appearance versus increased in size compared to prior. Normal pleura. Normal chest wall structures. New nondisplaced fracture of the posterior right eighth rib. Normal visualized upper abdomen. CT/CTA Chest W/WO Contrast IMPRESSION: Limited evaluation secondary to poor enhancement of the peripheral pulmonary arterial system with a questionable filling defect within a left apical subsegmental branch pulmonary artery. New nondisplaced fracture of the posterior right eighth rib. Consolidative changes at the left base are increased in prominence compared to the prior examination of 05/02/2019 and may represent scarring versus infectious process in the appropriate clinical setting. Malignancy cannot entirely excluded. Electronically Signed: Gary Vargas, at 21:35 EST Tel , Service support ,
[2019-06-27] MEDS: 0.9% Normal Saline 1,000 ML 150 ML IV (20:17)
[2019-06-27] MEDS: HYDROmorphone 1 MG/ML Syringe IV (20:18)
[2019-06-27] MEDS: Ondansetron 4 MG/2 ML Vial IV (20:18)
[2019-06-27 20:36] LABS: Absolute Lymphocyte Count 2.24 X10^3/uL (0.83-4.51); Absolute Neutrophil Count 6.1 X10^3/uL (2.0-7.7); Eosinophil# 0.76 X10^3/uL; Eosinophils% 7.4 % (0-5); Hematocrit 43.9 % (37-47); Hemoglobin 14.1 g/dL (12.0-15.0); Lymphocyte # 2.24 X10^3/ul (4.0); Lymphocyte % 21.9 % (19-41); Mean Corp Hgb Conc 32.1 g/dL (32-36); Mean Corpuscular Hgb 31.5 pg (27.0-32.0); Mean Corpuscular Volume 98.2 fL (81-99); Mean Platelet Vol. 9.9 fl (6.2-12.0); Monocyte% 7.8 % (0-10); NRBC Flagged by Analyzer 0 % (0-5); Neutrophil # 6.09 X10^3/uL (2.7-7.7); Neutrophil % 59.7 % (47-70); Platelet Count 297 K/mm3 (150-450); RBC Distribution Width CV 13.4 % (11.6-14.6); RBC Distribution Width SD 48.7 fl (35.1-43.9); Red Blood Count 4.47 M/mm3 (4.2-5.4); White Blood Count 10.2 K/mm3 (4.4-11.0)
[2019-06-27 20:52] LABS: Anion Gap 9 (5-15); BUN 25 mg/dL (7-18); Calcium,Total 9.2 mg/dL (8.5-10.1); Chloride 103 mmol/L (98-107); Creatinine, Serum 0.83 mg/dL (0.55-1.02); EST Glomerular Filtration Rate 73 mL/min (>60); Est Glom Filt Rate - Afr Amer 88 mL/min (>60); Estimated Creatinine Clearance 58.35 ml/min; Glucose 87 mg/dL (74-106); Potassium 4.2 mmol/L (3.5-5.1); Sodium Level 140 mmol/L (136-145)
--- NOTE | 2019-06-27 21:48 | ED.VISSUMM ---
- ER Visit Summary Date of Service: 06/27/19 Chief Complaint: [Shortness of breath and left-sided back pain/lung pain] History of Present Illness: The patient is a 64 F [resents to the emergency department with symptoms that started earlier today. Patient describes a cough and a fever up to 101.2 at home. She woke up this morning feeling disoriented and short of breath. Patient complains of severe pain with deep breath. Patient was seen earlier this morning in the emergency department by Dr. Bahena who did blood work and a chest x-ray and started patient on Levaquin for suspected early pneumonia. Patient states that she has history of asthma and bronchiectasis and had pneumonia in April. Patient denies recent travel or surgery. She is not had any history of PE or DVT.] Physical Examination: [HEENT-PERRLA, EOMI. Cranial nerves II through XII grossly intact. TMs clear. Mucous membranes moist. No adenopathy. Cardiovascular-regular rate and rhythm without murmur or ectopy Lungs-minutes bilaterally with faint expiratory wheezes bilaterally. No significant tachypnea. No excessive muscle use or retractions. Patient had few rales noted in the left base. Patient was hypoxic on arrival with O2 sat of 85% on room air Abdomen-normoactive bowel sounds, soft, nontender, no rebound or rigidity, no peritoneal signs. Extremities-intact ?4, normal range of motion, normal pulses, atraumatic] Test Results: [EKG obtained arrival showed sinus rhythm with a ventricular rate of 72 bpm with no acute ST segment changes. CBC with differential showing a 10.2, hemoglobin 14, hematocrit 44, placed to 97. Chemistries unremarkable. Troponin is less than 0.15. CT scan of the chest with IV contrast to rule out PE was obtained which showed that it was limited evaluation secondary to poor enhancement of the peripheral pulmonary arterial system with questionable filling defect within a left apical subsegmental branch of the pulmonary artery there was a new nondisplaced fracture of the posterior right eighth rib patient also had consolidative changes of the left base which are increased in prominence compared to prior exam of 05/02/2019 may represent scarring versus infectious process. Malignancy cannot be entirely excluded.] Emergency Department Course and Treatment: [Patient was medicated with Dilaudid 1 mg IV. Patient was started on Eliquis 10 mg IV. Lactate ordered and pending.] Treatment Plan: [Admit] Disposition: [Admit] Impression: [Chest pain Pulmonary embolism Hypoxemia Pneumonia] This note was generated with [employer] dictation software. It may contain incorrect words, spelling, and punctuation that were not noted in review of the chart prior to signing ED Disposition - Plan for ED Patient: Referrals: Julian Asher MD [Primary Care Provider] -
--- NOTE | 2019-06-27 21:49 | HP.PCM_ITS ---
Problem List (1) Pulmonary embolism Status: Suspected (2) Bronchiectasis Status: Acute Qualifiers: Bronchiectasis type: with acute exacerbation Qualified Code(s): J47.1 - Bronchiectasis with (acute) exacerbation (3) Pneumonia Status: Acute (4) Scoliosis of thoracolumbar spine Status: Chronic Qualifiers: Scoliosis type: thoracogenic Qualified Code(s): M41.35 - Thoracogenic scoliosis, thoracolumbar region (5) Lung nodule Status: Chronic (6) Asthma Status: Chronic Qualifiers: Asthma severity: severe Asthma persistence: persistent Asthma complication type: with acute exacerbation Qualified Code(s): J45.51 - Severe persistent asthma with (acute) exacerbation (7) Lumbar disc disease Status: Chronic (8) Nephrolithiasis Status: Chronic (9) Rhinitis Status: Chronic (10) Neuropathic pain Status: Inactive (11) COPD (chronic obstructive pulmonary disease) Status: Chronic Qualifiers: COPD type: COPD with acute lower respiratory infection Qualified Code(s): J44.0 - Chronic obstructive pulmonary disease with (acute) lower respiratory infection; J44.0 - Chronic obstructive pulmonary disease with acute lower respiratory infection; J44.0 - Chronic obstructive pulmonary disease with acute lower respiratory infection; J44.0 - Chronic obstructive pulmonary disease with acute lower respiratory infection History of Present Illness Date of Admission: 06/27/19 Chief Complaint: LEFT SIDED UPPER BACK PAIN The patient is a 64 year old F with a significant history of asthma; and bronchiectasis who presented to the emergency department with excruciating left- sided upper back pain that radiated to his left shoulder and his left chest. Her pain started on the same day of presentation. Associated with his symptoms is shortness of breath and increase in a baseline productive cough. Her cough is productive of brown and dark green sputum. She had a fever of 101.2 Fahrenheit 4 days ago but the fever has abated. Also he had chills and rigors a bout 4 days ago. This is patient's second visit at emergency department on the same day. On her first ED visit patient was diagnosed with probable pneumonia and was given Levaquin at THE emergency department and then an outpatient Levaquin prescription. Before she came to emergency department for the first time, she took Lorazepam for her pain but that did not give her any relief. After she went she took diazepam but that also did not help her pain. On her return ED visit chest CTA was concerning for possible pulmonary embolism. Also Chest CTA showed increased prominence of left base which could represent scarring versus infectious process and malignancy could not be entirely excluded. Past Medical History Past Medical History (Chronic Problems): Chronic Problems (Last Reviewed 06/28/19 @ 02:[address] Marcel Swenson MD) Scoliosis of thoracolumbar spine (Chronic) Lung nodule (Chronic) Asthma (Chronic) Lumbar disc disease (Chronic) Nephrolithiasis (Chronic) Rhinitis (Chronic) COPD (chronic obstructive pulmonary disease) (Chronic) Medical History: Medical History (Last Reviewed 06/28/19 @ 02:[address] Marcel Swenson MD) Scoliosis of thoracolumbar spine (Chronic) M41.9 Lung nodule (Chronic) R91.1 Lumbar disc disease (Chronic) M51.9 Nephrolithiasis (Chronic) Neuropathic pain (Acute) COPD (chronic obstructive pulmonary disease) (Chronic) J44.9 Arthritis M19.90 Asthma J45.909 Disease of tonsils and adenoids (Inactive) J35.9 Allergies bacitracin Adverse Reaction (Verified 06/27/19 19:00) Itching chlorpheniramine [From Dristan Cold] Adverse Reaction (Verified 06/27/19 19:00) Other loratadine [From Claritin-D] Adverse Reaction (Verified 06/27/19 19:00) Other morphine Adverse Reaction (Verified 06/27/19 19:00) Nausea phenylephrine [From Dristan Cold] Adverse Reaction (Verified 06/27/19 19:00) Other pseudoephedrine [From Claritin-D] Adverse Reaction (Verified 06/27/19 19:00) Other tramadol Adverse Reaction (Verified 06/27/19 19:00) Vomiting novacaine Adverse Reaction (Uncoded 06/27/19 19:00) Unknown Home Medications: Ambulatory Orders Medication Instructions Recorded Hydroxyzine HCl 25 mg PO Q8 PRN 08/21/16 Valacyclovir HCl [Valacyclovir] 500 mg PO DAILY 08/21/16 Baclofen 10 mg PO QHS 05/25/17 Cod Liver Oil 1 ea PO DAILY 05/25/17 Oxycodone [Oxyir] 5 mg PO BID PRN PRN 05/25/17 Potassium Citrate [Urocit-K] 10 meq PO DAILY 05/25/17 gabapentin 300 mg capsule 300 mg PO DAILY cap 03/02/18 gabapentin 300 mg capsule 600 mg PO LUNCH cap 03/02/18 Gabapentin [Gralise] 600 mg PO QHS 03/04/18 diclofenac sodium 75 mg 75 mg PO 0800,1500 05/01/18 tablet,delayed release ipratropium 20 mcg-albuterol 100 2 puff INHALATION Q6H PRN 05/01/18 mcg/actuation mist for inhalation magnesium 200 mg tablet 400 mg PO DAILY tab 05/01/18 Budesonide/Formoterol 160/4.5 2 puff INHALATION BID 04/06/19 [Symbicort 160/4.5 Mcg Inhaler (SP)] CycloSPORINE Ophthalmic [Restasis 1 drp EACH EYE BID 04/06/19 Ophthalmic] Esomeprazole Mag Trihydrate 10 mg PO DAILY 04/06/19 [Nexium] Duloxetine Hcl [Cymbalta] 60 mg PO DAILY 04/07/19 Guaifenesin [Mucinex] 1,200 mg PO BID #14 tab 04/10/19 vitamin K2 40 mcg tablet 40 mcg PO DAILY 04/26/19 dupilumab 300 mg/2 mL subcutaneous 300 mg SUBCUT Q2W #2 ml 05/12/19 syringe Albuterol Inhaler [Ventolin Hfa 2 puff INHALATION Q6H PRN PRN 06/27/19 (SP)] Denosumab [Prolia] 60 mg SQ .COMPLEX 06/27/19 Fluticasone 0.05% [Flonase Nasal 2 spray NASAL DAILY 06/27/19 [place]] Ipratropium [place] 2 spray NASAL DAILY 06/27/19 Levofloxacin [Levaquin] 750 mg PO DAILY #9 tab 06/27/19 Multivitamin [Multivitamins] 1 ea PO DAILY 06/27/19 Surgical History: Surgical History (Last Reviewed 06/28/19 @ 02:[address] 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 Marcel Swenson MD) Mother Cancer Sister Cancer Asthma Grandfather CAD (coronary artery disease) Grandmother Arthritis Father Hypertension History Items: No pertinent history Paternal Family History: Family History (Last Reviewed 06/28/19 @ 02:[address] Marcel Swenson MD) Mother Cancer Sister Cancer Asthma Grandfather CAD (coronary artery disease) Grandmother Arthritis Father Hypertension History Items: No pertinent history Review of Systems Constitutional: Reports: Chills, Fever. Denies: Weight Change HEENT: Denies: Head Aches, Sinus Congestion, Sinus Drainage Cardiovascular: Reports: Chest Pain. Denies: Palpitations Respiratory: Reports: Cough, Shortness of Breath, Sputum production. Denies: Shortness of breath at rest Gastrointestinal: Denies: Abdominal Pain, Nausea, Vomiting Genitourinary: Denies: Dysuria Musculoskeletal: Reports: Arm Pain, Back Pain, Shoulder Pain Skin: Denies: Rash, Wounds Neurological: Denies: Numbness, Tingling, Focal weakness Psychiatric: Denies: Anxiety, Depression, Homicidal Ideations, Suicidal Ideations Hematologic/ Lymphatic: Denies: Easy Bruising, Easy Bleeding VTE Information - Inpt Only VTE Present on Admission: Yes - Questionable PE. VTE Mechan Device Prophylaxis: None VTE Pharm Prophylaxis ordered?: No Reason prophylaxis not ordered:: Treatment Not Indicated - Started on Eliquis for questionable PE. Patient Problems: Active and Suspected Problems (Last Reviewed 06/28/19 @ 02:[address] Marcel coker MD) Pulmonary embolism (Suspected) - Physical Exam Vitals/I&O's: Vital Signs Temp Pulse Resp BP Pulse Ox 98.2 F 88 14 124/66 H 96 06/27/19 20:20 06/27/19 21:04 06/27/19 21:04 06/27/19 21:04 06/27/19 21:10 Oxygen Flow Rate (L/min) 3 Oxygen Delivery Method Nasal Cannula Weight: 66.7 kg Body Mass Index (BMI) 25.2 General: Alert, Oriented x3, Cooperative HEENT: Atraumatic, PERRLA, EOMI, Normocephalic Neck: Supple, No JVD, Negative Carotid Bruits Lungs: Rhonchi Cardiovascular: Regular rate, Normal S1, Normal S2, No murmurs Abdomen: Bowel Sounds Present, Soft, Non Tender Extremities: No edema, Capillary Refill Less than 3 Seconds Skin: No rashes, No breakdown Musculoskeletal: No Tenderness to Palpation of Joints or Extremities Neurological: Cranial nerves II-XII grossly intact Psych/Mental Status: Normal Affect, Appropriate Laboratory Results 06/27/19 20:25: WBC 10.2, RBC 4.47, Hgb 14.1, Hct 43.9, MCV 98.2, MCH 31.5, MCHC 32.1, RDW Std Deviation 48.7 H, RDW Coeff of Tarun 13.4, Plt Count 297, MPV 9.9, Immature Gran % (Auto) 2.200 H, Neut % (Auto) 59.7, Lymph % (Auto) 21.9, Cache % (Auto) 7.8, Eos % (Auto) 7.4 H, Baso % (Auto) 1.0, Absolute Neuts (auto) 6.1, Absolute Lymphs (auto) 2.24, Nucleated RBC % 0 06/27/19 20:25: Sodium 140, Potassium 4.2, Chloride 103, Carbon Dioxide 28.0, Anion Gap 9, BUN 25 H, Creatinine 0.83, Estim Creat Clear Calc 58.35, Est GFR (MDRD) Af Amer 88, Est GFR (MDRD) Non-Af 73, BUN/Creatinine Ratio 30.0 H, Glucose 87, Calcium 9.2, Troponin I < 0.015 Current Medications Apixaban (Eliquis) 10 mg PO BID [facility] Sodium Chloride () 1,000 mls @ 150 mls/hr IV .Q6H40M [facility] Last Admin: 06/27/19 20:17 Dose: 150 mls/hr Documented by: Assessment/Plan All Active Problems (Last Reviewed 06/28/19 @ 02:[address] Marcel Swenson MD) Pneumonia (Acute) Bronchiectasis (Acute) The patient is a 64 year old F with a significant history of asthma; and bronchiectasis who presented to the emergency department with excruciating left- sided upper back pain that radiated to his left shoulder and his left chest; shortness of breath; fever; chills and rigors and with increased productive cough and with radiographic evidence of probable pulmonary embolism and increased consolidative changes at left base which could represent scarring versus infectious process with malignancy not being excluded. Suspected PE CT PA showed a questionable filling defect within left apical subsegmental branch pulmonary artery. Follow-up d-dimer ordered by ED doc was elevated. At emergency department patient was hypoxic with oxygen saturation of 87% on room air. And she required supplemental nasal cannula oxygen. Started on Eliquis at emergency department. We will continue Eliquis. We will check an echocardiogram. We will get a BNP. We will trend troponin. Patient is allergic to morphine and Ultram. She reported that oxycodone will prevent her from sleeping. She received Dilaudid at the emergency department. We will continue patient on Dilaudid as needed. Acute exacerbation of bronchiectasis Differential diagnosis includes pneumonia or malignancy. Received Levaquin at first visit at emergency department. Levaquin continued Pulmonary consult. DVT prophylaxis Not indicated since patient has been started on Eliquis. Code Visit Inpatient E&M: [id number] Init Hosp L3
[2019-06-27] MEDS: APIXABAN 5 MG TABLET 10 MG PO (22:00)
[2019-06-27 22:25] LABS: D-Dimer Quantitative (DVT/PE) 0.92 FEU/ug/m (0.27-0.49)
[2019-06-27 22:31] LABS: Lactic Acid 0.5 mmol/L (0.4-1.9)
--- NOTE | 2019-06-27 23:28 | ECHOD_ITS ---
Reason For Study: Emboli Procedure This was a 2D Doppler, Color Flow transthoracic echocardiogram. Exam performed portable in patient room. Left Ventricle Normal size and thickness. The estimated ejection fraction is 65 %. Stage 1 diastolic dysfunction. No regional wall motion abnormalities noted. Right Ventricle Normal size and thickness. Normal systolic function. Atria Normal left atrium. Normal right atrium. Normal atrial septum. Mitral Valve The mitral valve is structurally normal. No prolapse or stenosis seen. Trivial mitral valve insufficiency. Tricuspid Valve Normal tricuspid valve. Trivial tricuspid valve insufficiency. Right ventricular systolic pressure estimated to be 30 mmHg. Aortic Valve Trisinus/trileaflet aortic valve. Trivial aortic valve insufficiency. Pulmonic Valve Normal pulmonic valve. Great Vessels Normal aortic root. Normal arch. Normal inferior vena cava. Inferior vena cava collapse with sniff. Pericardium/Pleural No pericardial effusion. MMode/2D Measurements & Calculations LVIDd: 4.4 cm IVSd: 1.1 cm Ao root diam: 3.3 cm LVIDs: 3.1 cm LVPWd: 1.00 cm RVDd: 3.7 cm FS: 31.0 % LAV(MOD-bp): 37.8 ml LA A4 area: 11.3 cm2 LA dimension(2D): 3.7 cm LAV(MOD-bp) Indexed: 22.1 ml/m2 LAV(MOD-sp2): 47.9 ml LAV(MOD-sp4): 26.2 ml RA A4 area: 14.5 cm2 Doppler Measurements & Calculations MV E max bill: 64.9 cm/sec Lat Peak E' Bill: 7.4 cm/sec Med Peak E' Bill: 5.0 cm/sec MV A max bill: 97.8 cm/sec E/E' lat: 8.7 E/E' med: 13.1 MV E/A: 0.66 Ao V2 max: 119.1 cm/sec LV V1 max: 74.0 cm/sec PA V2 max: 69.9 cm/sec Ao max P.7 mmHg LV V1 max P.2 mmHg Ao V2 mean: 94.4 cm/sec Ao mean P.7 mmHg Ao V2 VTI: 27.2 cm TR max bill: 248.9 cm/sec TR max P.8 mmHg Interpretation Summary The estimated ejection fraction is 65 %. Stage 1 diastolic dysfunction. Trivial mitral valve insufficiency. Trivial tricuspid valve insufficiency. Right ventricular systolic pressure estimated to be 30 mmHg. Trivial aortic valve insufficiency. There is no comparison study available. Ordering Physician: Marcel Swenson Referring Physician: Julian Asher Performed By: Mya Lomax RDCS, RVT
[2019-06-28] VITALS (11 sets, daily range): BP systolic 110–135; BP diastolic 65–83; PULSE 75–98; RESP 16–22; TEMP 36.5–36.7; O2SAT 91–95
[2019-06-28 00:26] LABS: BNP,B-Type NATRIURETIC PEPTIDE 22.5 pg/mL (0-100)
[2019-06-28] MEDS: 0.9% Saline Lock 10 ML Syringe IV ×8 (00:39→22:48)
[2019-06-28] MEDS: HYDROmorphone 0.5 MG/0.5 ML SYRINGE IV ×6 (00:39→18:55)
[2019-06-28] MEDS: guaiFENesin 1,200 MG Tablet 1200 MG PO ×2 (05:54→22:09)
[2019-06-28 06:11] LABS: Absolute Neutrophil Count 3.9 X10^3/uL (2.0-7.7); Basophil# 0.07 X10^3/uL; Basophil% 0.8 % (0-1); Eosinophil# 0.92 X10^3/uL; Eosinophils% 11.1 % (0-5); Hematocrit 39.3 % (37-47); Hemoglobin 12.3 g/dL (12.0-15.0); Lymphocyte % 27.8 % (19-41); Mean Corp Hgb Conc 31.3 g/dL (32-36); Mean Corpuscular Hgb 30.8 pg (27.0-32.0); Mean Corpuscular Volume 98.5 fL (81-99); Mean Platelet Vol. 10.1 fl (6.2-12.0); Monocyte# 0.87 X10^3/uL; Monocyte% 10.5 % (0-10); NRBC Flagged by Analyzer 0 % (0-5); Neutrophil # 3.94 X10^3/uL (2.7-7.7); Neutrophil % 47.6 % (47-70); Platelet Count 264 K/mm3 (150-450); RBC Distribution Width CV 13.6 % (11.6-14.6); RBC Distribution Width SD 50.1 fl (35.1-43.9); Red Blood Count 3.99 M/mm3 (4.2-5.4); White Blood Count 8.3 K/mm3 (4.4-11.0)
[2019-06-28 06:25] LABS: Anion Gap 5 (5-15); BUN 19 mg/dL (7-18); BUN/Creat Ratio 28.2 RATIO (10-20); Calcium,Total 8.4 mg/dL (8.5-10.1); Chloride 106 mmol/L (98-107); Creatinine, Serum 0.67 mg/dL (0.55-1.02); EST Glomerular Filtration Rate 93 mL/min (>60); Est Glom Filt Rate - Afr Amer 113 mL/min (>60); Estimated Creatinine Clearance 72.29 ml/min; Glucose 96 mg/dL (74-106); Potassium 3.9 mmol/L (3.5-5.1); Sodium Level 138 mmol/L (136-145)
[2019-06-28] MEDS: Budesonide Respules 0.5 MG/2 ML AMPUL.NEB. INHALATION (07:13)
[2019-06-28] MEDS: Diclofenac 75 MG Tablet PO ×2 (08:16→15:33)
[2019-06-28] MEDS: Multivitamins,Therapeutic Tablet 1 TABLET PO (08:16)
[2019-06-28] MEDS: Gabapentin 300 MG Capsule PO (08:16)
[2019-06-28] MEDS: APIXABAN 5 MG TABLET 10 MG PO ×2 (09:19→22:09)
[2019-06-28] MEDS: Acyclovir 200 MG Capsule 400 MG PO ×2 (09:20→22:09)
[2019-06-28] MEDS: DULoxetine Hcl 60 MG Capsule PO (09:20)
[2019-06-28] MEDS: levoFLOXacin 750 MG Tablet PO (09:20)
[2019-06-28] MEDS: Pantoprazole Sodium 20 MG Tablet PO (09:20)
[2019-06-28] MEDS: Magnesium Oxide 400 MG Tablet PO (09:20)
[2019-06-28] MEDS: Ipratropium Bromide 0.06% NASAL SPRAY 2 SPRAY NASAL (09:20)
[2019-06-28] MEDS: Fluticasone 0.05% 1 SPRAY NASAL.SRY 2 SPRAY NASAL (09:23)
[2019-06-28] MEDS: Gabapentin 600 MG Tablet PO ×2 (12:34→22:49)
--- NOTE | 2019-06-28 13:00 | CON.PCM_ITS ---
Reason for Consult Date of Consultation: 06/28/19 Reason for Consultation: Probable PE, increasing infiltrates in left lung History of Present Illness: The patient is a 64-year-old female, with a history as outlined below, who presented to the emergency department on June 27 with complaints of shortness of breath and left-sided pleuritic type chest pain. The patient is currently followed by Dr. Terrazas in the pulmonary medicine clinic, having last been seen at the end of April 2019. The patient carries a diagnosis of severe persistent asthma and bronchiectasis. The patient was just admitted to the hospital at the end of April 2019, during which time, she was treated for an acute exacerbation. On presentation to the emergency department, the patient was noted to be afebrile and hemodynamically stable. She was initially documented to be saturating 92% on room air. Laboratory evaluation revealed no evidence of a leukocytosis. Chemistry profile was unremarkable. D-dimer was elevated. Accordingly, a CTA chest was obtained which revealed a possible left apical segmental pulmonary embolism. There was bibasilar bronchiectasis along with consolidative changes in the left lung base. There was incidental note of a nondisplaced fracture of the posterior right eighth rib. The patient was subsequently started on Eliquis, antibiotics and bronchodilators. She was admitted to the progressive care unit for further management. Past Medical History Past Medical History (Chronic Problems): Chronic Problems (Last Reviewed 06/28/19 @ 02:[address] Marcel Swenson MD) Scoliosis of thoracolumbar spine (Chronic) Lung nodule (Chronic) Asthma (Chronic) Lumbar disc disease (Chronic) Nephrolithiasis (Chronic) Rhinitis (Chronic) COPD (chronic obstructive pulmonary disease) (Chronic) Medical History: Medical History (Last Reviewed 06/28/19 @ 02:[address] Marcel Swenson MD) Scoliosis of thoracolumbar spine (Chronic) M41.9 Lung nodule (Chronic) R91.1 Lumbar disc disease (Chronic) M51.9 Nephrolithiasis (Chronic) Neuropathic pain (Inactive) COPD (chronic obstructive pulmonary disease) (Chronic) J44.9 Arthritis M19.90 Asthma J45.909 Disease of tonsils and adenoids (Inactive) J35.9 Allergies bacitracin Adverse Reaction (Verified 06/27/19 19:00) Itching chlorpheniramine [From Matthew Alex] Adverse Reaction (Verified 06/27/19 19:00) Other loratadine [From Claritin-D] Adverse Reaction (Verified 06/27/19 19:00) Other morphine Adverse Reaction (Verified 06/27/19 19:00) Nausea phenylephrine [From Dristan Cold] Adverse Reaction (Verified 06/27/19 19:00) Other pseudoephedrine [From Claritin-D] Adverse Reaction (Verified 06/27/19 19:00) Other tramadol Adverse Reaction (Verified 06/27/19 19:00) Vomiting novacaine Adverse Reaction (Uncoded 06/27/19 19:00) Unknown Home Medications: Ambulatory Orders Medication Instructions Recorded Hydroxyzine HCl 25 mg PO Q8 PRN 08/21/16 Valacyclovir HCl [Valacyclovir] 500 mg PO DAILY 08/21/16 Baclofen 10 mg PO QHS 05/25/17 Cod Liver Oil 1 ea PO DAILY 05/25/17 Oxycodone [Oxyir] 5 mg PO BID PRN PRN 05/25/17 Potassium Citrate [Urocit-K] 10 meq PO DAILY 05/25/17 gabapentin 300 mg capsule 300 mg PO DAILY cap 03/02/18 gabapentin 300 mg capsule 600 mg PO LUNCH cap 03/02/18 Gabapentin [Gralise] 600 mg PO QHS 03/04/18 diclofenac sodium 75 mg 75 mg PO 0800,1500 05/01/18 tablet,delayed release ipratropium 20 mcg-albuterol 100 2 puff INHALATION Q6H PRN 05/01/18 mcg/actuation mist for inhalation magnesium 200 mg tablet 400 mg PO DAILY tab 05/01/18 Budesonide/Formoterol 160/4.5 2 puff INHALATION BID 04/06/19 [Symbicort 160/4.5 Mcg Inhaler (SP)] CycloSPORINE Ophthalmic [Restasis 1 drp EACH EYE BID 04/06/19 Ophthalmic] Esomeprazole Mag Trihydrate 10 mg PO DAILY 04/06/19 [Nexium] Duloxetine Hcl [Cymbalta] 60 mg PO DAILY 04/07/19 Guaifenesin [Mucinex] 1,200 mg PO BID #14 tab 04/10/19 vitamin K2 40 mcg tablet 40 mcg PO DAILY 04/26/19 dupilumab 300 mg/2 mL subcutaneous 300 mg SUBCUT Q2W #2 ml 01/08/20 syringe Albuterol Inhaler [Ventolin Hfa 2 puff INHALATION Q6H PRN PRN 06/27/19 (SP)] Denosumab [Prolia] 60 mg SQ .COMPLEX 06/27/19 Fluticasone 0.05% [Flonase Nasal 2 spray NASAL DAILY 06/27/19 [place]] Ipratropium [place] 2 spray NASAL DAILY 06/27/19 Levofloxacin [Levaquin] 750 mg PO DAILY #9 tab 06/27/19 Multivitamin [Multivitamins] 1 ea PO DAILY 06/27/19 Surgical History: Surgical History (Last Reviewed 06/28/19 @ 02:[address] Marcel Swenson MD) History of hernia repair Z98.890, Z87.19 History of hysterectomy Z90.710 History of tonsillectomy Z90.89 history bladder sling history removal ectopic Bladder sling clipped 18 H/O colonoscopy Z98.890 /18 H/O foot surgery (Inactive) Z98.890 History of back surgery (Inactive) Z98.890 L4-S1 fusion in January 2017 Surgical History: - Psychiatric History: Anxiety [employer] History: No pertinent [employer] history Smoking Status: Former smoker Alcohol: Occasional - *Family History Maternal Family History: Family History (Last Reviewed 06/28/19 @ 02:[address] Marcel Swenson MD) Mother Cancer Sister Cancer Asthma Grandfather CAD (coronary artery disease) Grandmother Arthritis Father Hypertension History Items: No pertinent history Paternal Family History: Family History (Last Reviewed 06/28/19 @ 02:[address] Marcel Swenson MD) Mother Cancer Sister Cancer Asthma Grandfather CAD (coronary artery disease) Grandmother Arthritis Father Hypertension History Items: No pertinent history Review of Systems Constitutional: Reports: Chills, Fatigue Eyes: Denies: Blurred vision, Double vision HEENT: Denies: Head Aches, Sinus Congestion, Sinus Drainage Cardiovascular: Reports: Chest Pain Respiratory: Reports: Cough, Shortness of Breath, Sputum production Gastrointestinal: Denies: Abdominal Pain, Nausea, Vomiting Genitourinary: Denies: Dysuria Musculoskeletal: Reports: Back Pain Skin: Denies: Rash, Wounds Neurological: Denies: Numbness, Tingling, Focal weakness Psychiatric: Reports: Anxiety Hematologic/ Lymphatic: Reports: Hx of blood clot. Denies: Easy Bruising, Easy Bleeding Patient Problems: Active and Suspected Problems (Last Reviewed 06/28/19 @ 02:[address] Marcel Swenson MD) Pulmonary embolism (Suspected) Objective: The patient's most recent lab work, culture data and imaging studies have all been personally reviewed. - Physical Exam Vitals/I&O's: Vital Signs Temp Pulse Resp BP Pulse Ox 98.0 F 78 18 110/65 94 06/28/19 09:35 06/28/19 11:00 06/28/19 09:35 06/28/19 09:35 06/28/19 09:35 Oxygen Flow Rate (L/min) 4 Oxygen Delivery Method Nasal Cannula Weight: 146 lb 9.6 oz Body Mass Index (BMI) 25.1 Intake and Output for Last 24 Hours 06/26/19 06/27/19 06/28/19 23:59 23:59 23:59 Intake Total 0 / 0 990 / 990 Output Total 0 / 0 Balance 0 / 0 990 / 990 General: Alert, Cooperative, No apparent distress HEENT: Atraumatic, PERRLA, Normocephalic Oral: No Gingival or Mucosal Lesions/ Ulcerations Neck: Supple, No Nodes, Trachea Midline Lungs: No rhonchi, No wheeze, Diminished, Rales Cardiovascular: Regular rate, Regular Rhythm, Normal S1, Normal S2 Abdomen: Bowel Sounds Present, Soft, Non Tender Extremities: No clubbing, No cyanosis, No edema Skin: No breakdown Musculoskeletal: No Tenderness to Palpation of Joints or Extremities Lymphatic: No Cervical, Supraclavicular, or Inguinal Adenopathy Neurological: Cranial nerves II-XII grossly intact, Neuro grossly intact Psych/Mental Status: Alert and oriented to time, place, person, mood and affect Labs (Last 48 Hours) 06/27/19 06/27/19 06/27/19 20:25 20:25 20:25 WBC 10.2 RBC 4.47 Hgb 14.1 Hct 43.9 MCV 98.2 MCH 31.5 MCHC 32.1 RDW Std Deviation 48.7 H RDW Coeff of Tarun 13.4 Plt Count 297 MPV 9.9 Immature Gran % (Auto) 2.200 H Neut % (Auto) 59.7 Lymph % (Auto) 21.9 [place] % (Auto) 7.8 Eos % (Auto) 7.4 H Baso % (Auto) 1.0 Absolute Neuts (auto) 6.1 Absolute Lymphs (auto) 2.24 Nucleated RBC % 0 D-Dimer Quant (PE/DVT) 0.92 H* Sodium 140 Potassium 4.2 Chloride 103 Carbon Dioxide 28.0 Anion Gap 9 BUN 25 H Creatinine 0.83 Estim Creat Clear Calc 58.35 Est GFR (MDRD) Af Amer 88 Est GFR (MDRD) Non-Af 73 BUN/Creatinine Ratio 30.0 H Glucose 87 Lactic Acid Calcium 9.2 Troponin I < 0.015 B-Natriuretic Peptide 06/27/19 06/27/19 06/28/19 20:25 21:55 00:10 WBC RBC Hgb Hct MCV MCH MCHC RDW Std Deviation RDW Coeff of Tarun Plt Count MPV Immature Gran % (Auto) Neut % (Auto) Lymph % (Auto) [place] % (Auto) Eos % (Auto) Baso % (Auto) Absolute Neuts (auto) Absolute Lymphs (auto) Nucleated RBC % D-Dimer Quant (PE/DVT) Sodium Potassium Chloride Carbon Dioxide Anion Gap BUN Creatinine Estim Creat Clear Calc Est GFR (MDRD) Af Amer Est GFR (MDRD) Non-Af BUN/Creatinine Ratio Glucose Lactic Acid 0.5 Calcium Troponin I < 0.015 B-Natriuretic Peptide 22.5 06/28/19 06/28/19 06/28/19 03:00 05:35 05:35 WBC 8.3 RBC 3.99 L Hgb 12.3 Hct 39.3 MCV 98.5 MCH 30.8 MCHC 31.3 L RDW Std Deviation 50.1 H RDW Coeff of Tarun 13.6 Plt Count 264 MPV 10.1 Immature Gran % (Auto) 2.200 H Neut % (Auto) 47.6 Lymph % (Auto) 27.8 [place] % (Auto) 10.5 H Eos % (Auto) 11.1 H Baso % (Auto) 0.8 Absolute Neuts (auto) 3.9 Absolute Lymphs (auto) 2.30 Nucleated RBC % 0 D-Dimer Quant (PE/DVT) Sodium 138 Potassium 3.9 Chloride 106 Carbon Dioxide 27.0 Anion Gap 5 BUN 19 H Creatinine 0.67 Estim Creat Clear Calc 72.29 Est GFR (MDRD) Af Amer 113 Est GFR (MDRD) Non-Af 93 BUN/Creatinine Ratio 28.2 H Glucose 96 Lactic Acid Calcium 8.4 L Troponin I < 0.015 B-Natriuretic Peptide Clinical Impression(s) from Imaging Studies Chest CTA 06/27/19 19:56 IMPRESSION: Limited evaluation secondary to poor enhancement of the peripheral pulmonary arterial system with a questionable filling defect within a left apical subsegmental branch pulmonary artery. New nondisplaced fracture of the posterior right eighth rib. Consolidative changes at the left base are increased in prominence compared to the prior examination of 05/02/2019 and may represent scarring versus infectious process in the appropriate clinical setting. Malignancy cannot entirely excluded. Electronically Signed: Gary Vargas, at 21:35 EST Tel , Service support , ADDENDUM: 06/27/192148 IMPRESSION: Limited evaluation secondary to poor enhancement of the peripheral pulmonary arterial system with a questionable filling defect within a left apical subsegmental branch pulmonary artery. New nondisplaced fracture of the posterior right eighth rib. Consolidative changes at the left base are increased in prominence compared to the prior examination of 05/02/2019 and may represent scarring versus infectious process in the appropriate clinical setting. Malignancy cannot entirely excluded. N.B. : The above information has been verbally conveyed by Gary Vargas to Nanette Oliva MD , , on 06/27/2019 21:42:16 (ET). Electronically Signed: Gary Vargas, at 21:35 EST Tel , Service support , Current Medications Acetaminophen (Tylenol) 650 mg PO Q6H PRN PRN PRN Reason: Pain Score 1-10/Temp > 100.7 F Acyclovir (Zovirax) 400 mg PO BID [facility] Last Admin: 06/28/19 09:20 Dose: 400 mg Documented by: Albuterol/Ipratropium (Duoneb) 3 ml INHALATION Q4H.RT PRN PRN Reason: sob/wheezing Apixaban (Eliquis) 10 mg PO BID [facility] Last Admin: 06/28/19 09:19 Dose: 10 mg Documented by: Artificial Tears (Tears Naturale, Artificial Tears) 1 - 2 drop EACH EYE Q2H PRN PRN PRN Reason: DRY EYES Baclofen (Lioresal) 10 mg PO QHS [facility] Budesonide (Pulmicort Aerosol) 0.5 mg INHALATION Q12H.RT [facility] Last Admin: 06/28/19 07:13 Dose: 0.5 mg Documented by: Diclofenac Sodium (Voltaren) 75 mg PO 0800,1500 [facility] Last Admin: 06/28/19 08:16 Dose: 75 mg Documented by: Duloxetine HCl (Cymbalta) 60 mg PO DAILY [facility] Last Admin: 06/28/19 09:20 Dose: 60 mg Documented by: Fluticasone Propionate (Flonase Nasal [place]) 2 spray NASAL DAILY [facility] Last Admin: 06/28/19 09:23 Dose: 2 spray Documented by: Gabapentin (Neurontin) 300 mg PO DAILYCM [facility] Last Admin: 06/28/19 08:16 Dose: 300 mg Documented by: Gabapentin (Neurontin) 600 mg PO 1200,2200 [facility] Last Admin: 06/28/19 12:34 Dose: 600 mg Documented by: Glucagon () 1 mg IM .X1 PRN PRN Reason: Hypoglycemia Guaifenesin (Mucinex) 1,200 mg PO BID [facility] Last Admin: 06/28/19 05:54 Dose: 1,200 mg Documented by: Hydromorphone HCl (Dilaudid Inj) 0.5 mg IV Q3H PRN PRN PRN Reason: PAIN 6-10/10 Last Admin: 06/28/19 12:34 Dose: 0.5 mg Documented by: Hydroxyzine Pamoate (Vistaril Pamoate Capsule) 25 mg PO Q8H PRN PRN PRN Reason: ANXIETY Dextrose (Dextrose 10%-Water) 250 mls @ 999 mls/hr IV .Q16M PRN; Protocol PRN Reason: HYPOGLYCEMIA Sodium Chloride () 250 mls @ 15 mls/hr IV .[id number] PRN PRN Reason: Saline Flush Sodium Chloride () 250 mls @ 15 mls/hr IV .[id number] PRN PRN Reason: Additional IVPB Infusion Ipratropium [place] (Atrovent Nasal [place] (G)) 2 spray NASAL DAILY [facility] Last Admin: 06/28/19 09:20 Dose: 2 spray Documented by: Levofloxacin (Levaquin Tablet) 750 mg PO DAILY [facility] Last Admin: 06/28/19 09:20 Dose: 750 mg Documented by: Magnesium Oxide (Mag-Ox 400) 400 mg PO DAILY [facility] Last Admin: 06/28/19 09:20 Dose: 400 mg Documented by: Melatonin (Melatonin) 3 mg PO QHS PRN PRN PRN Reason: INSOMNIA Multivitamins (Multivitamin) 1 tablet PO DAILYCM [facility] Last Admin: 06/28/19 08:16 Dose: 1 tablet Documented by: Nutritional Formula (Lactose Free) (Ensure Enlive) 120 ml PO 4X/DAY [facility] Last Admin: 06/28/19 09:21 Dose: 120 ml Documented by: Ondansetron HCl (Zofran) 4 mg IV Q8H PRN PRN PRN Reason: NAUSEA/VOMITING Pantoprazole Sodium (Protonix) 20 mg PO DAILY [facility] Last Admin: 06/28/19 09:20 Dose: 20 mg Documented by: Sodium Chloride () 10 - 40 ml IV UD PRN PRN Reason: SALINE FLUSH Last Admin: 06/28/19 12:34 Dose: 15 ml Documented by: Assessment/Plan All Active Problems (Last Reviewed 06/28/19 @ 02:[address] Marcel Swenson MD) Pneumonia (Acute) Bronchiectasis (Acute) RECOMMENDATIONS: 1. Wean supplemental oxygen to maintain saturations at or above 90%. 2. Continue scheduled bronchodilators. Discontinue budesonide and start IV steroids. 3. Obtain and send sputum for culture. 4. Check MRSA screen, strep and urine Legionella antigens and respiratory viral panel. 5. Continue Eliquis. IMPRESSIONS: 1. Asthma/bronchiectasis with exacerbation Continue current supportive measures. Wean supplemental oxygen to maintain saturations at or above 90%. Obtain and send sputum for culture. Check strep and urine Legionella antigens along with MRSA screen. Check respiratory viral panel as well. Continue scheduled bronchodilators. Discontinue budesonide and start systemic corticosteroids. 2. Pulmonary embolism CTA chest revealed findings concerning for segmental PE. Therefore, the patient was placed on Eliquis, which will be continued. There was evidence of consolidative changes in the left lung base. I would recommend that a repeat CT chest be completed 6 to 8 weeks following treatment of her pneumonia. This note was generated with [employer]ation software. It may contain incorrect words, spelling, and punctuation that were not noted in checking the note before signing. Code Visit Inpatient E&M: 38133 Init Hosp L3
--- NOTE | 2019-06-28 13:57 | PN_ITS ---
<Rik Palomo - Last Filed: 06/28/19 13:57> Patient Problems: Active and Suspected Problems (Last Reviewed 06/28/19 @ 02:[address] Marcel Swenson MD) Pulmonary embolism (Suspected) Reason for Visit: SOB Subjective: Ongoing productive cough with green/brown sputum. Ongoing severe back pain worse left lower thoracic region. Sharp chest pain with deep breathing. No fever or chills. Ongoing worsening SOB worse with exertion. Pt is former smoker quit 15 years ago smokes about 30 years, mother and sister had lung cancer. No LE edema. Vitals/I&O's: Vital Signs Temp Pulse Resp BP Pulse Ox 98.0 F 78 18 110/65 94 06/28/19 09:35 06/28/19 11:00 06/28/19 09:35 06/28/19 09:35 06/28/19 09:35 Oxygen Flow Rate (L/min) 4 Oxygen Delivery Method Nasal Cannula Weight: 146 lb 9.6 oz Body Mass Index (BMI) 25.1 Intake and Output for Last 24 Hours 06/26/19 06/27/19 06/28/19 23:59 23:59 23:59 Intake Total 0 / 0 990 / 990 Output Total 0 / 0 Balance 0 / 0 990 / 990 General: Alert, Oriented x3, Cooperative HEENT: Atraumatic, PERRLA, EOMI, Normocephalic Neck: Supple, No JVD, Negative Carotid Bruits Lungs: Diminished, Rales - LLL Cardiovascular: Regular rate, No murmurs Abdomen: Bowel Sounds Present, Soft, Non Tender Extremities: No edema, Capillary Refill Less than 3 Seconds Skin: No rashes, No breakdown Musculoskeletal: No Tenderness to Palpation of Joints or Extremities Neurological: Cranial nerves II-XII grossly intact Psych/Mental Status: Normal Affect, Appropriate, Alert and oriented to time, place, person, mood and affect Laboratory Results 06/27/19 20:25: WBC 10.2, RBC 4.47, Hgb 14.1, Hct 43.9, MCV 98.2, MCH 31.5, MCHC 32.1, RDW Std Deviation 48.7 H, RDW Coeff of Tarun 13.4, Plt Count 297, MPV 9.9, Immature Gran % (Auto) 2.200 H, Neut % (Auto) 59.7, Lymph % (Auto) 21.9, [place] % (Auto) 7.8, Eos % (Auto) 7.4 H, Baso % (Auto) 1.0, Absolute Neuts (auto) 6.1, Absolute Lymphs (auto) 2.24, Nucleated RBC % 0 06/27/19 20:25: Sodium 140, Potassium 4.2, Chloride 103, Carbon Dioxide 28.0, Anion Gap 9, BUN 25 H, Creatinine 0.83, Estim Creat Clear Calc 58.35, Est GFR (MDRD) Af Amer 88, Est GFR (MDRD) Non-Af 73, BUN/Creatinine Ratio 30.0 H, Glucose 87, Calcium 9.2, Troponin I < 0.015 06/27/19 20:25: D-Dimer Quant (PE/DVT) 0.92 H* 06/27/19 20:25: B-Natriuretic Peptide 22.5 06/27/19 21:55: Lactic Acid 0.5 06/28/19 00:10: Troponin I < 0.015 06/28/19 03:00: Troponin I < 0.015 06/28/19 05:35: WBC 8.3, RBC 3.99 L, Hgb 12.3, Hct 39.3, MCV 98.5, MCH 30.8, MCHC 31.3 L, RDW Std Deviation 50.1 H, RDW Coeff of Tarun 13.6, Plt Count 264, MPV 10.1, Immature Gran % (Auto) 2.200 H, Neut % (Auto) 47.6, Lymph % (Auto) 27.8, [place] % (Auto) 10.5 H, Eos % (Auto) 11.1 H, Baso % (Auto) 0.8, Absolute Neuts (auto) 3.9, Absolute Lymphs (auto) 2.30, Nucleated RBC % 0 06/28/19 05:35: Sodium 138, Potassium 3.9, Chloride 106, Carbon Dioxide 27.0, Anion Gap 5, BUN 19 H, Creatinine 0.67, Estim Creat Clear Calc 72.29, Est GFR (MDRD) Af Amer 113, Est GFR (MDRD) Non-Af 93, BUN/Creatinine Ratio 28.2 H, Glucose 96, Calcium 8.4 L Current Medications Acetaminophen (Tylenol) 650 mg PO Q6H PRN PRN PRN Reason: Pain Score 1-10/Temp > 100.7 F Acyclovir (Zovirax) 400 mg PO BID [facility] Last Admin: 06/28/19 09:20 Dose: 400 mg Documented by: Albuterol/Ipratropium (Duoneb) 3 ml INHALATION Q4H.RT PRN PRN Reason: sob/wheezing Apixaban (Eliquis) 10 mg PO BID [facility] Last Admin: 06/28/19 09:19 Dose: 10 mg Documented by: Artificial Tears (Tears Naturale, Artificial Tears) 1 - 2 drop EACH EYE Q2H PRN PRN PRN Reason: DRY EYES Baclofen (Lioresal) 10 mg PO QHS [facility] Diclofenac Sodium (Voltaren) 75 mg PO 0800,1500 [facility] Last Admin: 06/28/19 08:16 Dose: 75 mg Documented by: Duloxetine HCl (Cymbalta) 60 mg PO DAILY [facility] Last Admin: 06/28/19 09:20 Dose: 60 mg Documented by: Fluticasone Propionate (Flonase Nasal [place]) 2 spray NASAL DAILY [facility] Last Admin: 06/28/19 09:23 Dose: 2 spray Documented by: Gabapentin (Neurontin) 300 mg PO DAILYCM [facility] Last Admin: 06/28/19 08:16 Dose: 300 mg Documented by: Gabapentin (Neurontin) 600 mg PO 1200,2200 [facility] Last Admin: 06/28/19 12:34 Dose: 600 mg Documented by: Glucagon () 1 mg IM .X1 PRN PRN Reason: Hypoglycemia Guaifenesin (Mucinex) 1,200 mg PO BID [facility] Last Admin: 06/28/19 05:54 Dose: 1,200 mg Documented by: Hydromorphone HCl (Dilaudid Inj) 0.5 mg IV Q3H PRN PRN PRN Reason: PAIN 6-10/10 Last Admin: 06/28/19 12:34 Dose: 0.5 mg Documented by: Hydroxyzine Pamoate (Vistaril Pamoate Capsule) 25 mg PO Q8H PRN PRN PRN Reason: ANXIETY Dextrose (Dextrose 10%-Water) 250 mls @ 999 mls/hr IV .Q16M PRN; Protocol PRN Reason: HYPOGLYCEMIA Sodium Chloride () 250 mls @ 15 mls/hr IV .[id number] PRN PRN Reason: Saline Flush Sodium Chloride () 250 mls @ 15 mls/hr IV .[id number] PRN PRN Reason: Additional IVPB Infusion Piperacillin Sod/Tazobactam (Sod 3.375 gm/ Sodium Chloride) 50 mls @ 12.5 mls/hr IV Q8 [facility] Ipratropium [place] (Atrovent Nasal [place] (G)) 2 spray NASAL DAILY [facility] Last Admin: 06/28/19 09:20 Dose: 2 spray Documented by: Magnesium Oxide (Mag-Ox 400) 400 mg PO DAILY [facility] Last Admin: 06/28/19 09:20 Dose: 400 mg Documented by: Melatonin (Melatonin) 3 mg PO QHS PRN PRN PRN Reason: INSOMNIA Methylprednisolone (Solu-Medrol) 40 mg IV Q6 [facility] Multivitamins (Multivitamin) 1 tablet PO DAILYCM [facility] Last Admin: 06/28/19 08:16 Dose: 1 tablet Documented by: Nutritional Formula (Lactose Free) (Ensure Enlive) 120 ml PO 4X/DAY [facility] Last Admin: 06/28/19 09:21 Dose: 120 ml Documented by: Ondansetron HCl (Zofran) 4 mg IV Q8H PRN PRN PRN Reason: NAUSEA/VOMITING Pantoprazole Sodium (Protonix) 20 mg PO DAILY [facility] Last Admin: 06/28/19 09:20 Dose: 20 mg Documented by: Sodium Chloride () 10 - 40 ml IV UD PRN PRN Reason: SALINE FLUSH Last Admin: 06/28/19 12:34 Dose: 15 ml Documented by: STROKE Vital Signs/Narrative: Vital Signs Pulse 06/28/19 11:00 78 Medical Necessity - Tobacco Use Smoking Status: Former smoker Assessment/Plan All Active Problems (Last Reviewed 06/28/19 @ 02:[address] Marcel Swenson MD) Pneumonia (Acute) Bronchiectasis (Acute) 1. Acute hypoxic respiratory failure 2/2 PE - on 4lpm o2. CTA shows possible PE, possible lung mass. + smoking hx + family hx lung cancer. no unexplained weight loss. Pulmonary medicine consulted. -continue eliquis -BNP negative. -trop neg -echo pending 2. Acute bronchiectasis exacerbation - Zosyn. no leukocytosis no fever. PEP therapy. 3. Asthma/COPD presumed exacerbation - solumedrol, aerosols, IS 4. Chronic back pain 2/2 DDD, prior spinal surgery - gabapentin, baclofen, cymbalta, voltaren, 5. Osteoporosis - prolia 6. GERD - protonix DVT ppx: eliquis This patient was seen by Rik Palomo PA-C under the supervision of Doctor Solo. <Clarke Banda - Last Filed: 06/28/19 15:00> Vitals/I&O's: Vital Signs Temp Pulse Resp BP Pulse Ox 98.0 F 78 18 110/65 94 06/28/19 09:35 06/28/19 11:00 06/28/19 09:35 06/28/19 09:35 06/28/19 09:35 Oxygen Flow Rate (L/min) 4 Oxygen Delivery Method Nasal Cannula Weight: 66.497 kg Body Mass Index (BMI) 25.1 Intake and Output for Last 24 Hours 06/26/19 06/27/19 06/28/19 23:59 23:59 23:59 Intake Total 0 / 0 990 / 990 Output Total 0 / 0 Balance 0 / 0 990 / 990 Laboratory Results 06/27/19 20:25: WBC 10.2, RBC 4.47, Hgb 14.1, Hct 43.9, MCV 98.2, MCH 31.5, MCHC 32.1, RDW Std Deviation 48.7 H, RDW Coeff of Tarun 13.4, Plt Count 297, MPV 9.9, Immature Gran % (Auto) 2.200 H, Neut % (Auto) 59.7, Lymph % (Auto) 21.9, [place] % (Auto) 7.8, Eos % (Auto) 7.4 H, Baso % (Auto) 1.0, Absolute Neuts (auto) 6.1, Absolute Lymphs (auto) 2.24, Nucleated RBC % 0 06/27/19 20:25: Sodium 140, Potassium 4.2, Chloride 103, Carbon Dioxide 28.0, Anion Gap 9, BUN 25 H, Creatinine 0.83, Estim Creat Clear Calc 58.35, Est GFR (MDRD) Af Amer 88, Est GFR (MDRD) Non-Af 73, BUN/Creatinine Ratio 30.0 H, Glucose 87, Calcium 9.2, Troponin I < 0.015 06/27/19 20:25: D-Dimer Quant (PE/DVT) 0.92 H* 06/27/19 20:25: B-Natriuretic Peptide 22.5 06/27/19 21:55: Lactic Acid 0.5 06/28/19 00:10: Troponin I < 0.015 06/28/19 03:00: Troponin I < 0.015 06/28/19 05:35: WBC 8.3, RBC 3.99 L, Hgb 12.3, Hct 39.3, MCV 98.5, MCH 30.8, MCHC 31.3 L, RDW Std Deviation 50.1 H, RDW Coeff of Tarun 13.6, Plt Count 264, MPV 10.1, Immature Gran % (Auto) 2.200 H, Neut % (Auto) 47.6, Lymph % (Auto) 27.8, [place] % (Auto) 10.5 H, Eos % (Auto) 11.1 H, Baso % (Auto) 0.8, Absolute Neuts (auto) 3.9, Absolute Lymphs (auto) 2.30, Nucleated RBC % 0 06/28/19 05:35: Sodium 138, Potassium 3.9, Chloride 106, Carbon Dioxide 27.0, Anion Gap 5, BUN 19 H, Creatinine 0.67, Estim Creat Clear Calc 72.29, Est GFR (MDRD) Af Amer 113, Est GFR (MDRD) Non-Af 93, BUN/Creatinine Ratio 28.2 H, Glucose 96, Calcium 8.4 L Current Medications Acetaminophen (Tylenol) 650 mg PO Q6H PRN PRN PRN Reason: Pain Score 1-10/Temp > 100.7 F Acyclovir (Zovirax) 400 mg PO BID [facility] Last Admin: 06/28/19 09:20 Dose: 400 mg Documented by: Albuterol/Ipratropium (Duoneb) 3 ml INHALATION Q4H.RT PRN PRN Reason: sob/wheezing Apixaban (Eliquis) 10 mg PO BID [facility] Last Admin: 06/28/19 09:19 Dose: 10 mg Documented by: Artificial Tears (Tears Naturale, Artificial Tears) 1 - 2 drop EACH EYE Q2H PRN PRN PRN Reason: DRY EYES Baclofen (Lioresal) 10 mg PO QHS [facility] Diclofenac Sodium (Voltaren) 75 mg PO 0800,1500 [facility] Last Admin: 06/28/19 08:16 Dose: 75 mg Documented by: Duloxetine HCl (Cymbalta) 60 mg PO DAILY [facility] Last Admin: 06/28/19 09:20 Dose: 60 mg Documented by: Fluticasone Propionate (Flonase Nasal [place]) 2 spray NASAL DAILY [facility] Last Admin: 06/28/19 09:23 Dose: 2 spray Documented by: Gabapentin (Neurontin) 300 mg PO DAILYCM [facility] Last Admin: 06/28/19 08:16 Dose: 300 mg Documented by: Gabapentin (Neurontin) 600 mg PO 1200,2200 [facility] Last Admin: 06/28/19 12:34 Dose: 600 mg Documented by: Glucagon () 1 mg IM .X1 PRN PRN Reason: Hypoglycemia Guaifenesin (Mucinex) 1,200 mg PO BID [facility] Last Admin: 06/28/19 05:54 Dose: 1,200 mg Documented by: Hydromorphone HCl (Dilaudid Inj) 0.5 mg IV Q3H PRN PRN PRN Reason: PAIN 6-1010 Last Admin: 06/28/19 12:34 Dose: 0.5 mg Documented by: Hydroxyzine Pamoate (Vistaril Pamoate Capsule) 25 mg PO Q8H PRN PRN PRN Reason: ANXIETY Dextrose (Dextrose 10%-Water) 250 mls @ 999 mls/hr IV .Q16M PRN; Protocol PRN Reason: HYPOGLYCEMIA Sodium Chloride () 250 mls @ 15 mls/hr IV .[id number] PRN PRN Reason: Saline Flush Sodium Chloride () 250 mls @ 15 mls/hr IV .[id number] PRN PRN Reason: Additional IVPB Infusion Piperacillin Sod/Tazobactam (Sod 3.375 gm/ Sodium Chloride) 50 mls @ 12.5 mls/hr IV Q8 [facility] Ipratropium [place] (Atrovent Nasal [place] (G)) 2 spray NASAL DAILY [facility] Last Admin: 06/28/19 09:20 Dose: 2 spray Documented by: Magnesium Oxide (Mag-Ox 400) 400 mg PO DAILY [facility] Last Admin: 06/28/19 09:20 Dose: 400 mg Documented by: Melatonin (Melatonin) 3 mg PO QHS PRN PRN PRN Reason: INSOMNIA Methylprednisolone (Solu-Medrol) 40 mg IV Q6 [facility] Multivitamins (Multivitamin) 1 tablet PO DAILYCM [facility] Last Admin: 06/28/19 08:16 Dose: 1 tablet Documented by: Nutritional Formula (Lactose Free) (Ensure Enlive) 120 ml PO 4X/DAY [facility] Last Admin: 06/28/19 09:21 Dose: 120 ml Documented by: Ondansetron HCl (Zofran) 4 mg IV Q8H PRN PRN PRN Reason: NAUSEA/VOMITING Pantoprazole Sodium (Protonix) 20 mg PO DAILY [facility] Last Admin: 06/28/19 09:20 Dose: 20 mg Documented by: Sodium Chloride () 10 - 40 ml IV UD PRN PRN Reason: SALINE FLUSH Last Admin: 06/28/19 12:34 Dose: 15 ml Documented by: STROKE Vital Signs/Narrative: Vital Signs Pulse 06/28/19 11:00 78 Assessment/Plan This patient was seen in conjunction with Rik Palomo PA-C . I have independently interviewed and examined the patient and reviewed pertinent histo rical, laboratory, and other data. Please refer to Rik Palomo PA-C note for details of this patient's presentation, findings, and recommendations. I have reviewed Rik Palomo PA-C note and concur with documented findings. In brief, patient is a 64-year-old lady who presented with pleuritic chest pain. CTA of the chest obtained was questionable for filling defects? Pulmonary embolism mention of left lower lobe opacity for which malignancy could not be excluded. Patient was started on systemic anticoagulation admitted to a monitored bed with consultation placed to pulmonary medicine Physical Examination: GENERAL: cooperative HEENT: Atraumatic; EYES; Anicteric, Normal Conjunctiva NECK; supple, normal thyroid, RESPIRATORY: Diminished to auscultation CARDIOVASCULAR: Regular S1 S2, GI: soft, normoactive bowel sounds, : No Renal angle tenderness; EXTREMITIES: No edema, no clubbing, MUSCULOSKELETAL: no muscle waisting NEURO: Awake; no lateralizing signs. SKIN: No Rash PSYCH; Flat affect Assessment: 1. Pleuritic chest pain 2. Suspected pulmonary embolism 3. Left lower lobe opacity 4. Bronchiectasis 5. Bronchial asthma 6. Chronic back pain 7. Osteoporosis 8. GERD Recommendations: 1. I have discussed the results of my overview and impressions with the patient 2. Options for management were reviewed Clinical Impression(s) from Imaging Studies Chest CTA 06/27/19 19:56 IMPRESSION: Limited evaluation secondary to poor enhancement of the peripheral pulmonary arterial system with a questionable filling defect within a left apical subsegmental branch pulmonary artery. New nondisplaced fracture of the posterior right eighth rib. Consolidative changes at the left base are increased in prominence compared to the prior examination of 05/02/2019 and may represent scarring versus infectious process in the appropriate clinical setting. Malignancy cannot entirely excluded. Electronically Signed: Gary Vargas, at 21:35 EST Tel , Service support , ADDENDUM: 06/27/19 2149 IMPRESSION: Limited evaluation secondary to poor enhancement of the peripheral pulmonary arterial system with a questionable filling defect within a left apical subsegmental branch pulmonary artery. New nondisplaced fracture of the posterior right eighth rib. Consolidative changes at the left base are increased in prominence compared to the prior examination of 05/02/2019 and may represent scarring versus infectious process in the appropriate clinical setting. Malignancy cannot entirely excluded. N.B. : The above information has been verbally conveyed by Gary Vargas to Nanette Oliva MD , , on 06/27/2019 21:42:16 (ET). Electronically Signed: Gary Vargas, at 21:35 EST Tel , Service support , Code Visit Inpatient E&M: 05202 Subs Hosp L3
--- NOTE | 2019-06-28 14:45 | CASEMGMT ---
RN CM Assessment Introduced role of RN CM to patient.? Patient is alert, oriented and able?to participate in RN CM Assessment. ?Care providers, pharmacy, and demographics verified. Presentation: Excruciating left-sided upper back pain that radiated to his left shoulder and his left chest Admit Dx: Probable PE Re-Admit: No Barriers/Issues: None PCP: Julian Asher Specialists: Pulm- Dr Terrazas, Pain- Dr Montelongo, Spine Surgeon at [facility]- Dr Alejandro Preferred [facility]acy: [facility] Insurance: [facility], MMO Rx Benefit:?Yes, [place] ?LNOK: Conrad Ding LW/HPOA: States has both and aware not on file, states that she needs to bring it in. HPOA- Conrad Ding Living Arrangements:?Lives with her in a 3SH-farm house, Bedroom on 2nd level, No steps to enter through the basement, 3 steps to enter through the front. ADL?s: Independent with ambulation and ADLs Transportation: both patient and her drive and states that her is not retired yet and still works. DME: Has a cane and walker available from her previous back surgery that she does not currently use. Shower Chair. HHC: None SNF: None. States had been to [facility] in the past Goal: Home and states thinks she may need home oxygen. Informed of qualifications and testing, aware RNCM will continue to follow for need. Provided a DME list and patient states that her preference would be [employer]. Denies any other issues, concerns, needs, or questions with DC planning at this time. Aware RNCM remains available should any emerging needs arise. DC PLAN: Home with possible home O2. WENDY Barahona
[2019-06-28] MEDS: Ipratropium/Albuterol Sulfate 3 ML AMPUL.NEB INHALATION (15:57)
[2019-06-28] MEDS: LORazepam 0.5 MG Tablet PO (22:48)
[2019-06-28] MEDS: Baclofen 10 MG Tablet PO (22:49)
[2019-06-29] VITALS (15 sets, daily range): BP systolic 111–149; BP diastolic 71–87; PULSE 79–116; RESP 16–20; TEMP 36.4–36.9; O2SAT 91–95
[2019-06-29 01:25] LABS: M R Staph aureus DNA By PCR Negative (Negative); Probe Check PASS; Specimen Processing Control PASS
[2019-06-29] MEDS: oxyCODONE 5 MG Tablet PO ×3 (05:28→18:52)
[2019-06-29] MEDS: Ipratropium/Albuterol Sulfate 3 ML AMPUL.NEB INHALATION ×3 (07:33→19:09)
[2019-06-29] MEDS: Multivitamins,Therapeutic Tablet 1 TABLET PO (08:22)
[2019-06-29] MEDS: Diclofenac 75 MG Tablet PO ×2 (08:22→13:59)
[2019-06-29] MEDS: Gabapentin 300 MG Capsule PO (08:23)
[2019-06-29] MEDS: Fluticasone 0.05% 1 SPRAY NASAL.SRY 2 SPRAY NASAL (10:26)
[2019-06-29] MEDS: APIXABAN 5 MG TABLET 10 MG PO ×2 (10:29→21:52)
[2019-06-29] MEDS: DULoxetine Hcl 60 MG Capsule PO (10:30)
[2019-06-29] MEDS: Magnesium Oxide 400 MG Tablet PO (10:31)
[2019-06-29] MEDS: Polyethylene Glycol 3350 17 GM PACKET PO (10:31)
[2019-06-29] MEDS: guaiFENesin 1,200 MG Tablet 1200 MG PO ×2 (10:32→21:57)
[2019-06-29] MEDS: Pantoprazole Sodium 20 MG Tablet PO (10:33)
[2019-06-29] MEDS: Acyclovir 200 MG Capsule 400 MG PO ×2 (10:33→21:53)
[2019-06-29] MEDS: Gabapentin 600 MG Tablet PO ×2 (12:16→21:57)
--- NOTE | 2019-06-29 12:36 | PN_ITS ---
<Rik Palomo - Last Filed: 06/29/19 12:36> Patient Problems: Active and Suspected Problems (Last Reviewed 06/28/19 @ 02:[address] Marcel Swenson MD) Pulmonary embolism (Suspected) Reason for Visit: SOB Subjective: Ongoing chest and left thoracic back pain, though with significant improvement today. Still SOB just laying and talking to me. Worse with exertion. Still on 4lpm O2. She does not use home o2. She has an ongoing cough, she is unable to bring anything up today,. No fever/chills. No LE edema. Vitals/I&O's: Vital Signs Temp Pulse Resp BP Pulse Ox 97.6 F L 108 H 16 142/78 H 92 06/29/19 12:00 06/29/19 12:00 06/29/19 12:00 06/29/19 12:00 06/29/19 12:00 Oxygen Flow Rate (L/min) 4 Oxygen Delivery Method Nasal Cannula Weight: 146 lb 9.613 oz Body Mass Index (BMI) 25.1 Intake and Output for Last 24 Hours 06/27/19 06/28/19 06/29/19 23:59 23:59 23:59 Intake Total 0 / 0 1160 / 1520 580 / 580 Output Total 0 / 0 Balance 0 / 0 1160 / 1520 580 / 580 General: Alert, Oriented x3, Cooperative HEENT: Atraumatic, PERRLA, EOMI, Normocephalic Neck: Supple, No JVD, Negative Carotid Bruits Lungs: Wheezes, - - course L>R Cardiovascular: Regular rate, No murmurs Abdomen: Bowel Sounds Present, Soft, Non Tender Extremities: No edema, Capillary Refill Less than 3 Seconds Skin: No rashes, No breakdown Musculoskeletal: No Tenderness to Palpation of Joints or Extremities Neurological: Cranial nerves II-XII grossly intact Psych/Mental Status: Normal Affect, Appropriate, Alert and oriented to time, place, person, mood and affect Microbiology Past 72 Hours 06/28/19 14:45 Mucosa - Nasopharyngeal Respiratory Panel (PCR) - Final 06/28/19 23:57 Urine, Clean Catch Legionella Antigen - Final 06/28/19 23:57 Urine, Clean Catch Streptococcus pneumoniae Antigen (M - Final Laboratory Results 06/28/19 22:55: MRSA (PCR) Negative Current Medications Acetaminophen (Tylenol) 650 mg PO Q6H PRN PRN PRN Reason: Pain Score 1-10/Temp > 100.7 F Acyclovir (Zovirax) 400 mg PO BID [facility] Last Admin: 06/29/19 10:33 Dose: 400 mg Documented by: Albuterol/Ipratropium (Duoneb) 3 ml INHALATION Q4H.RT PRN PRN Reason: sob/wheezing Last Admin: 06/29/19 07:33 Dose: 3 ml Documented by: Apixaban (Eliquis) 10 mg PO BID [facility] Last Admin: 06/29/19 10:29 Dose: 10 mg Documented by: Artificial Tears (Tears Naturale, Artificial Tears) 1 - 2 drop EACH EYE Q2H PRN PRN PRN Reason: DRY EYES Baclofen (Lioresal) 10 mg PO QHS [facility] Last Admin: 06/28/19 22:49 Dose: 10 mg Documented by: Diclofenac Sodium (Voltaren) 75 mg PO 0800,1500 [facility] Last Admin: 06/29/19 08:22 Dose: 75 mg Documented by: Duloxetine HCl (Cymbalta) 60 mg PO DAILY [facility] Last Admin: 06/29/19 10:30 Dose: 60 mg Documented by: Fluticasone Propionate (Flonase Nasal [place]) 2 spray NASAL DAILY [facility] Last Admin: 06/29/19 10:26 Dose: 2 spray Documented by: Gabap[facility] ([facility]urontin) [facility] Last Admin: 06/29/19 08:23 Dose: 300 mg Documented by: Gabapentin (Neurontin) 600 mg PO 1200,2200 [facility] Last Admin: 06/29/19 12:16 Dose: 600 mg Documented by: Glucagon () 1 mg IM .X1 PRN PRN Reason: Hypoglycemia Guaifenesin (Mucinex) 1,200 mg PO BID [facility] Last Admin: 06/29/19 10:32 Dose: 1,200 mg Documented by: Hydromorphone HCl (Dilaudid Inj) 0.5 mg IV Q3H PRN PRN PRN Reason: PAIN 6-10/10 Last Admin: 06/28/19 18:55 Dose: 0.5 mg Documented by: Hydroxyzine Pamoate (Vistaril Pamoate Capsule) 25 mg PO Q8H PRN PRN PRN Reason: ANXIETY Dextrose (Dextrose 10%-Water) 250 mls @ 999 mls/hr IV .Q16M PRN; Protocol PRN Reason: HYPOGLYCEMIA Sodium Chloride () 250 mls @ 15 mls/hr IV .[id number] PRN PRN Reason: Saline Flush Sodium Chloride () 250 mls @ 15 mls/hr IV .[id number] PRN PRN Reason: Additional IVPB Infusion Piperacillin Sod/Tazobactam (Sod 3.375 gm/ Sodium Chloride) 50 mls @ 12.5 mls/hr IV Q8 [facility] Last Infusion: 06/29/19 09:31 Dose: Infused Documented by: Ipratropium [place] (Atrovent Nasal [place] (G)) 2 spray NASAL DAILY [facility] Last Admin: 06/29/19 10:29 Dose: Not Given Documented by: Magnesium Oxide (Mag-Ox 400) 400 mg PO DAILY [facility] Last Admin: 06/29/19 10:31 Dose: 400 mg Documented by: Melatonin (Melatonin) 3 mg PO QHS PRN PRN PRN Reason: INSOMNIA Methylprednisolone (Solu-Medrol) 40 mg IV Q6 [facility] Last Admin: 06/29/19 12:16 Dose: 40 mg Documented by: Multivitamins (Multivitamin) 1 tablet PO DAILYCM [facility] Last Admin: 06/29/19 08:22 Dose: 1 tablet Documented by: Nutritional Formula (Lactose Free) (Ensure Enlive) 120 ml PO 4X/DAY [facility] Last Admin: 06/29/19 10:30 Dose: Not Given Documented by: Ondansetron HCl (Zofran) 4 mg IV Q8H PRN PRN PRN Reason: NAUSEA/VOMITING Oxycodone HCl (Oxyir) 5 mg PO Q6H PRN PRN PRN Reason: Pain Score 6-10/10 Last Admin: 06/29/19 10:34 Dose: 5 mg Documented by: Pantoprazole Sodium (Protonix) 20 mg PO DAILY [facility] Last Admin: 06/29/19 10:33 Dose: 20 mg Documented by: Polyethylene Glycol (Miralax) 17 gm PO DAILY [facility] Last Admin: 06/29/19 10:31 Dose: 17 gm Documented by: Sodium Chloride () 10 - 40 ml IV UD PRN PRN Reason: SALINE FLUSH Last Admin: 06/28/19 22:48 Dose: 10 ml Documented by: STROKE Vital Signs/Narrative: Vital Signs Temp Pulse Resp BP Pulse Ox 06/29/19 12:00 97.6 F L 108 H 16 142/78 H 92 06/29/19 11:00 105 H 06/29/19 10:00 97.9 F 116 H 16 148/84 H 94 Medical Necessity - Tobacco Use Smoking Status: Former smoker Assessment/Plan All Active Problems (Last Reviewed 06/28/19 @ 02:[address] Marcel Swenson MD) Pneumonia (Acute) Bronchiectasis (Acute) 1. Acute hypoxic respiratory failure 2/2 PE - on 4lpm o2. She does not use baseline oxygen. CTA shows possible PE, possible lung mass. Chest pain is improving. Continue Eliquis. -continue eliquis -BNP negative. -trop neg -echo Demonstrates EF of 65%, stage I diastolic dysfunction, RVSP of 30 mmHg. -Repeat imaging as outpatient 2. Acute bronchiectasis exacerbation - Zosyn. no leukocytosis no fever. PEP therapy. Continue aerosols, add incentive spirometer. Wean oxygen as tolerated. 3. Asthma/COPD presumed exacerbation - solumedrol, aerosols, IS 4. Chronic back pain 2/2 DDD, prior spinal surgery - gabapentin, baclofen, cymbalta, voltaren, 5. Osteoporosis - prolia 6. GERD - protonix DVT ppx: eliquis This patient was seen by Rik Palomo PA-C under the supervision of Doctor Solo. <Clarke Banda - Last Filed: 06/29/19 13:40> Vitals/I&O's: Vital Signs Temp Pulse Resp BP Pulse Ox 97.6 F L 108 H 16 142/78 H 92 06/29/19 12:00 06/29/19 12:00 06/29/19 12:00 06/29/19 12:00 06/29/19 12:00 Oxygen Flow Rate (L/min) 4 Oxygen Delivery Method Nasal Cannula Weight: 66.497 kg Body Mass Index (BMI) 25.1 Intake and Output for Last 24 Hours 06/27/19 06/28/19 06/29/19 23:59 23:59 23:59 Intake Total 0 / 0 1160 / 1520 580 / 580 Output Total 0 / 0 Balance 0 / 0 1160 / 1520 580 / 580 Microbiology Past 72 Hours 06/28/19 14:45 Mucosa - Nasopharyngeal Respiratory Panel (PCR) - Final 06/28/19 23:57 Urine, Clean Catch Legionella Antigen - Final 06/28/19 23:57 Urine, Clean Catch Streptococcus pneumoniae Antigen (M - Final Laboratory Results 06/28/19 22:55: MRSA (PCR) Negative Current Medications Acetaminophen (Tylenol) 650 mg PO Q6H PRN PRN PRN Reason: Pain Score 1-10/Temp > 100.7 F Acyclovir (Zovirax) 400 mg PO BID [facility] Last Admin: 06/29/19 10:33 Dose: 400 mg Documented by: Albuterol/Ipratropium (Duoneb) 3 ml INHALATION Q4H.RT PRN PRN Reason: sob/wheezing Last Admin: 06/29/19 07:33 Dose: 3 ml Documented by: Apixaban (Eliquis) 10 mg PO BID [facility] Last Admin: 06/29/19 10:29 Dose: 10 mg Documented by: Artificial Tears (Tears Naturale, Artificial Tears) 1 - 2 drop EACH EYE Q2H PRN PRN PRN Reason: DRY EYES Baclofen (Lioresal) 10 mg PO QHS [facility] Last Admin: 06/28/19 22:49 Dose: 10 mg Documented by: Diclofenac Sodium (Voltaren) 75 mg PO 0800,1500 [facility] Last Admin: 06/29/19 08:22 Dose: 75 mg Documented by: Duloxetine HCl (Cymbalta) 60 mg PO DAILY [facility] Last Admin: 06/29/19 10:30 Dose: 60 mg Documented by: Fluticasone Propionate (Flonase Nasal [place]) 2 spray NASAL DAILY [facility] Last Admin: 06/29/19 10:26 Dose: 2 spray Documented by: Gabapentin (Neurontin) [facility] Last Admin: 06/29/19 08:23 Dose: 300 mg Documented by: Gabapentin (Neurontin) 600 mg PO 1200,2200 [facility] Last Admin: 06/29/19 12:16 Dose: 600 mg Documented by: Glucagon () 1 mg IM .X1 PRN PRN Reason: Hypoglycemia Guaifenesin (Mucinex) 1,200 mg PO BID [facility] Last Admin: 06/29/19 10:32 Dose: 1,200 mg Documented by: Hydromorphone HCl (Dilaudid Inj) 0.5 mg IV Q3H PRN PRN PRN Reason: PAIN 6-10/10 Last Admin: 06/28/19 18:55 Dose: 0.5 mg Documented by: Hydroxyzine Pamoate (Vistaril Pamoate Capsule) 25 mg PO Q8H PRN PRN PRN Reason: ANXIETY Dextrose (Dextrose 10%-Water) 250 mls @ 999 mls/hr IV .Q16M PRN; Protocol PRN Reason: HYPOGLYCEMIA Sodium Chloride () 250 mls @ 15 mls/hr IV .[id number] PRN PRN Reason: Saline Flush Sodium Chloride () 250 mls @ 15 mls/hr IV .[id number] PRN PRN Reason: Additional IVPB Infusion Piperacillin Sod/Tazobactam (Sod 3.375 gm/ Sodium Chloride) 50 mls @ 12.5 mls/hr IV Q8 [facility] Last Infusion: 06/29/19 09:31 Dose: Infused Documented by: Ipratropium [place] (Atrovent Nasal [place] (G)) 2 spray NASAL DAILY [facility] Last Admin: 06/29/19 10:29 Dose: Not Given Documented by: Magnesium Oxide (Mag-Ox 400) 400 mg PO DAILY [facility] Last Admin: 06/29/19 10:31 Dose: 400 mg Documented by: Melatonin (Melatonin) 3 mg PO QHS PRN PRN PRN Reason: INSOMNIA Methylprednisolone (Solu-Medrol) 40 mg IV Q6 [facility] Last Admin: 06/29/19 12:16 Dose: 40 mg Documented by: Multivitamins (Multivitamin) [facility] tablet [facility] Last Admin: 06/29/19 08:22 Dose: 1 tablet Documented by: Nutritional Formula (Lactose Free) (Ensure Enlive) 120 ml PO 4X/DAY [facility] Last Admin: 06/29/19 10:30 Dose: Not Given Documented by: Ondansetron HCl (Zofran) 4 mg IV Q8H PRN PRN PRN Reason: NAUSEA/VOMITING Oxycodone HCl (Oxyir) 5 mg PO Q6H PRN PRN PRN Reason: Pain Score 6-10/10 Last Admin: 06/29/19 10:34 Dose: 5 mg Documented by: Pantoprazole Sodium (Protonix) 20 mg PO DAILY [facility] Last Admin: 06/29/19 10:33 Dose: 20 mg Documented by: Polyethylene Glycol (Miralax) 17 gm PO DAILY [facility] Last Admin: 06/29/19 10:31 Dose: 17 gm Documented by: Sodium Chloride () 10 - 40 ml IV UD PRN PRN Reason: SALINE FLUSH Last Admin: 06/28/19 22:48 Dose: 10 ml Documented by: STROKE Vital Signs/Narrative: Vital Signs Temp Pulse Resp BP Pulse Ox 06/29/19 12:00 97.6 F L 108 H 16 142/78 H 92 06/29/19 11:00 105 H 06/29/19 10:00 97.9 F 116 H 16 148/84 H 94 Assessment/Plan This patient was seen in conjunction with Rik Palomo PA-C . I have independently interviewed and examined the patient and reviewed pertinent historical, laboratory, and other data. Please refer to Rik Palomo PA-C note for details of this patient's presentation, findings, and recommendations. I have reviewed Rik Palomo PA-C note and concur with documented findings. In brief, patient is a 64-year-old lady who presented with pleuritic chest pain. CTA of the chest obtained was questionable for filling defects? Pulmonary embolism mention of left lower lobe opacity for which malignancy could not be excluded. Patient was started on systemic anticoagulation admitted to a monitored bed with consultation placed to pulmonary medicine 06/29/2019: Patient seen still complains of pleuritic chest pain. Added incentive spirometry as well as flutter valve therapy to patient's treatment regimen. Physical Examination: GENERAL: cooperative HEENT: Atraumatic; EYES; Anicteric, Normal Conjunctiva NECK; supple, normal thyroid, RESPIRATORY: Diminished to auscultation CARDIOVASCULAR: Regular S1 S2, GI: soft, normoactive bowel sounds, : No Renal angle tenderness; EXTREMITIES: No edema, no clubbing, MUSCULOSKELETAL: no muscle waisting NEURO: Awake; no lateralizing signs. SKIN: No Rash PSYCH; Flat affect Assessment: 1. Pleuritic chest pain 2. Suspected pulmonary embolism 3. Left lower lobe opacity 4. Bronchiectasis 5. Bronchial asthma 6. Chronic back pain 7. Osteoporosis 8. GERD Recommendations: 1. I have discussed the results of my overview and impressions with the patient 2. Options for management were reviewed Code Visit Inpatient E&M: 76582 Subs Hosp L3
--- NOTE | 2019-06-29 12:45 | PN_ITS ---
Patient Problems: Active and Suspected Problems (Last Reviewed 06/28/19 @ 02:[address] Marcel Swenson MD) Pulmonary embolism (Suspected) Subjective: The patient was seen and examined at the bedside this morning. Events from the last 24 hours have been reviewed. The patient is currently afebrile, hemodynamically stable and maintaining appropriate oxygen saturations on 4 L/min via nasal cannula. The patient continues to report the presence of a cough but has been unable to produce any sputum. Ironically, I did encounter the patient ambulated in the hallways in search of ice without any supplemental oxygen in place. She did not appear to be labored in any aspect. Objective: The patient's most recent lab work, culture data and imaging studies have all been personally reviewed. Strep and urine Legionella antigens were negative. Respiratory viral panel was negative. - Physical Exam Vitals/I&O's: Vital Signs Temp Pulse Resp BP Pulse Ox 97.6 F L 108 H 16 142/78 H 92 06/29/19 12:00 06/29/19 12:00 06/29/19 12:00 06/29/19 12:00 06/29/19 12:00 Oxygen Flow Rate (L/min) 4 Oxygen Delivery Method Nasal Cannula Weight: 146 lb 9.613 oz Body Mass Index (BMI) 25.1 Intake and Output for Last 24 Hours 06/27/19 06/28/19 06/29/19 23:59 23:59 23:59 Intake Total 0 / 0 1160 / 1520 580 / 580 Output Total 0 / 0 Balance 0 / 0 1160 / 1520 580 / 580 General: Alert, Cooperative, No apparent distress HEENT: Atraumatic, Normocephalic Oral: No Gingival or Mucosal Lesions/ Ulcerations Neck: Supple, No Nodes, Trachea Midline Lungs: Diminished, Wheezes Cardiovascular: Regular rate, Regular Rhythm, Normal S1, Normal S2 Abdomen: Bowel Sounds Present, Soft, Non Tender Extremities: No clubbing, No cyanosis, No edema Skin: No breakdown Musculoskeletal: No Tenderness to Palpation of Joints or Extremities Lymphatic: No Cervical, Supraclavicular, or Inguinal Adenopathy Neurological: Cranial nerves II-XII grossly intact, Neuro grossly intact Psych/Mental Status: Alert and oriented to time, place, person, mood and affect Labs (Last 48 Hours) 06/27/19 06/27/1906/27/20 20:25 20:25 20:25 WBC 10.2 RBC 4.47 Hgb 14.1 Hct 43.9 MCV 98.2 MCH 31.5 MCHC 32.1 RDW Std Deviation 48.7 H RDW Coeff of Tarun 13.4 Plt Count 297 MPV 9.9 Immature Gran % (Auto) 2.200 H Neut % (Auto) 59.7 Lymph % (Auto) 21.9 Adams % (Auto) 7.8 Eos % (Auto) 7.4 H Baso % (Auto) 1.0 Absolute Neuts (auto) 6.1 Absolute Lymphs (auto) 2.24 Nucleated RBC % 0 D-Dimer Quant (PE/DVT) 0.92 H* Sodium 140 Potassium 4.2 Chloride 103 Carbon Dioxide 28.0 Anion Gap 9 BUN 25 H Creatinine 0.83 Estim Creat Clear Calc 58.35 Est GFR (MDRD) Af Amer 88 Est GFR (MDRD) Non-Af 73 BUN/Creatinine Ratio 30.0 H Glucose 87 Lactic Acid Calcium 9.2 Troponin I < 0.015 B-Natriuretic Peptide MRSA (PCR) 06/27/19 06/27/19 06/28/19 20:25 21:55 00:10 WBC RBC Hgb Hct MCV MCH MCHC RDW Std Deviation RDW Coeff of Tarun Plt Count MPV Immature Gran % (Auto) Neut % (Auto) Lymph % (Auto) Adams % (Auto) Eos % (Auto) Baso % (Auto) Absolute Neuts (auto) Absolute Lymphs (auto) Nucleated RBC % D-Dimer Quant (PE/DVT) Sodium Potassium Chloride Carbon Dioxide Anion Gap BUN Creatinine Estim Creat Clear Calc Est GFR (MDRD) Af Amer Est GFR (MDRD) Non-Af BUN/Creatinine Ratio Glucose Lactic Acid 0.5 Calcium Troponin I < 0.015 B-Natriuretic Peptide 22.5 MRSA (PCR) 06/28/19 06/28/19 06/28/19 03:00 05:35 05:35 WBC 8.3 RBC 3.99 L Hgb 12.3 Hct 39.3 MCV 98.5 MCH 30.8 MCHC 31.3 L RDW Std Deviation 50.1 H RDW Coeff of Tarun 13.6 Plt Count 264 MPV 10.1 Immature Gran % (Auto) 2.200 H Neut % (Auto) 47.6 Lymph % (Auto) 27.8 Adams % (Auto) 10.5 H Eos % (Auto) 11.1 H Baso % (Auto) 0.8 Absolute Neuts (auto) 3.9 Absolute Lymphs (auto) 2.30 Nucleated RBC % 0 D-Dimer Quant (PE/DVT) Sodium 138 Potassium 3.9 Chloride 106 Carbon Dioxide 27.0 Anion Gap 5 BUN 19 H Creatinine 0.67 Estim Creat Clear Calc 72.29 Est GFR (MDRD) Af Amer 113 Est GFR (MDRD) Non-Af 93 BUN/Creatinine Ratio 28.2 H Glucose 96 Lactic Acid Calcium 8.4 L Troponin I < 0.015 B-Natriuretic Peptide MRSA (PCR) 06/28/19 22:55 WBC RBC Hgb Hct MCV MCH MCHC RDW Std Deviation RDW Coeff of Tarun Plt Count MPV Immature Gran % (Auto) Neut % (Auto) Lymph % (Auto) Adams % (Auto) Eos % (Auto) Baso % (Auto) Absolute Neuts (auto) Absolute Lymphs (auto) Nucleated RBC % D-Dimer Quant (PE/DVT) Sodium Potassium Chloride Carbon Dioxide Anion Gap BUN Creatinine Estim Creat Clear Calc Est GFR (MDRD) Af Amer Est GFR (MDRD) Non-Af BUN/Creatinine Ratio Glucose Lactic Acid Calcium Troponin I B-Natriuretic Peptide MRSA (PCR) Negative Microbiology 06/28/19 14:45 Mucosa - Nasopharyngeal Respiratory Panel (PCR) - Final 06/28/19 23:57 Urine, Clean Catch Legionella Antigen - Final 06/28/19 23:57 Urine, Clean Catch Streptococcus pneumoniae Antigen (M - Final Clinical Impression(s) from Imaging Studies Chest CTA 06/27/19 19:56 IMPRESSION: Limited evaluation secondary to poor enhancement of the peripheral pulmonary arterial system with a questionable filling defect within a left apical subsegmental branch pulmonary artery. New nondisplaced fracture of the posterior right eighth rib. Consolidative changes at the left base are increased in prominence compared to the prior examination of 05/02/2019 and may represent scarring versus infectious process in the appropriate clinical setting. Malignancy cannot entirely excluded. Electronically Signed: Gary Vargas, at 21:35 EST Tel , Service support , ADDENDUM: 06/27/19 2149 IMPRESSION: Limited evaluation secondary to poor enhancement of the peripheral pulmonary arterial system with a questionable filling defect within a left apical subsegmental branch pulmonary artery. New nondisplaced fracture of the posterior right eighth rib. Consolidative changes at the left base are increased in prominence compared to the prior examination of 05/02/2019 and may represent scarring versus infectious process in the appropriate clinical setting. Malignancy cannot entirely excluded. N.B. : The above information has been verbally conveyed by Gary Vargas to Nanette Oliva MD , , on 06/27/2019 21:42:16 (ET). Electronically Signed: Gary Vargas, at 21:35 EST Tel , Service support , Current Medications Acetaminophen (Tylenol) 650 mg PO Q6H PRN PRN PRN Reason: Pain Score 1-10/Temp > 100.7 F Acyclovir (Zovirax) 400 mg PO BID [facility] Last Admin: 06/29/19 10:33 Dose: 400 mg Documented by: Albuterol/Ipratropium (Duoneb) 3 ml INHALATION Q4H.RT PRN PRN Reason: sob/wheezing Last Admin: 06/29/19 07:33 Dose: 3 ml Documented by: Apixaban (Eliquis) 10 mg PO BID [facility] Last Admin: 06/29/19 10:29 Dose: 10 mg Documented by: Artificial Tears (Tears Naturale, Artificial Tears) 1 - 2 drop EACH EYE Q2H PRN PRN PRN Reason: DRY EYES Baclofen (Lioresal) 10 mg PO QHS [facility] Last Admin: 06/28/19 22:49 Dose: 10 mg Documented by: Diclofenac Sodium (Voltaren) 75 mg PO 0800,1500 [facility] Last Admin: 06/29/19 08:22 Dose: 75 mg Documented by: Duloxetine HCl (Cymbalta) 60 mg PO DAILY [facility] Last Admin: 06/29/19 10:30 Dose: 60 mg Documented by: Fluticasone Propionate (Flonase Nasal [place]) 2 spray NASAL DAILY [facility] Last Admin: 06/29/19 10:26 Dose: 2 spray Documented by: [facility] Admin: 06/29/19 08:23 Dose: 300 mg Documented by: Gabapentin (Neurontin) 600 mg PO 1200,2200 [facility] Last Admin: 06/29/19 12:16 Dose: 600 mg Documented by: Glucagon () 1 mg IM .X1 PRN PRN Reason: Hypoglycemia Guaifenesin (Mucinex) 1,200 mg PO BID [facility] Last Admin: 06/29/19 10:32 Dose: 1,200 mg Documented by: Hydromorphone HCl (Dilaudid Inj) 0.5 mg IV Q3H PRN PRN PRN Reason: PAIN 6-02/11 Last Admin: 06/28/19 18:55 Dose: 0.5 mg Documented by: Hydroxyzine Pamoate (Vistaril Pamoate Capsule) 25 mg PO Q8H PRN PRN PRN Reason: ANXIETY Dextrose (Dextrose 10%-Water) 250 mls @ 999 mls/hr IV .Q16M PRN; Protocol PRN Reason: HYPOGLYCEMIA Sodium Chloride () 250 mls @ 15 mls/hr IV .[id number] PRN PRN Reason: Saline Flush Sodium Chloride () 250 mls @ 15 mls/hr IV .[id number] PRN PRN Reason: Additional IVPB Infusion Piperacillin Sod/Tazobactam (Sod 3.375 gm/ Sodium Chloride) 50 mls @ 12.5 mls/hr IV Q8 [facility] Last Infusion: 06/29/19 09:31 Dose: Infused Documented by: Ipratropium [place]o (Atrovent Nasal [place] (G)) 2 spray NASAL DAILY [facility] Last Admin: 06/29/19 10:29 Dose: Not Given Documented by: Magnesium Oxide (Mag-Ox 400) 400 mg PO DAILY [facility] Last Admin: 06/29/19 10:31 Dose: 400 mg Documented by: Melatonin (Melatonin) 3 mg PO QHS PRN PRN PRN Reason: INSOMNIA Methylprednisolone (Solu-Medrol) 40 mg IV Q6 [facility] Last Admin: 06/29/19 12:16 Dose: 40 mg Documented by: Multivitamins (Multivitamin) 1 tablet PO DAILYCM [facility] Last Admin: 06/29/19 08:22 Dose: 1 tablet Documented by: Nutritional Formula (Lactose Free) (Ensure Enlive) 120 ml PO 4X/DAY [facility] Last Admin: 06/29/19 10:30 Dose: Not Given Documented by: Ondansetron HCl (Zofran) 4 mg IV Q8H PRN PRN PRN Reason: NAUSEA/VOMITING Oxycodone HCl (Oxyir) 5 mg PO Q6H PRN PRN PRN Reason: Pain Score 6-10/10 Last Admin: 06/29/19 10:34 Dose: 5 mg Documented by: Pantoprazole Sodium (Protonix) 20 mg PO DAILY [facility] Last Admin: 06/29/19 10:33 Dose: 20 mg Documented by: Polyethylene Glycol (Miralax) 17 gm PO DAILY [facility] Last Admin: 06/29/19 10:31 Dose: 17 gm Documented by: Sodium Chloride () 10 - 40 ml IV UD PRN PRN Reason: SALINE FLUSH Last Admin: 06/28/19 22:48 Dose: 10 ml Documented by: Medical Necessity - Tobacco Use Smoking Status: Former smoker Assessment/Plan All Active Problems (Last Reviewed 06/28/19 @ 02:[address] Marcel Swenson MD) Pneumonia (Acute) Bronchiectasis (Acute) RECOMMENDATIONS: 1. Wean supplemental oxygen to maintain saturations at or above 90%. 2. Continue scheduled bronchodilators and IV steroids. 3. Obtain and send sputum for culture. 4. Continue Eliquis. 5. Continue aggressive bronchopulmonary hygiene. IMPRESSIONS: 1. Asthma/bronchiectasis with exacerbation Continue current supportive measures. Wean supplemental oxygen to maintain saturations at or above 90%. Obtain and send sputum for culture. Continue empiric antimicrobials, bronchodilators and steroids. Perform walking oximetry study prior to consideration for discharge home. Recommend repeat CT chest in 6 to 8 weeks. 2. Pulmonary embolism CTA chest revealed findings concerning for segmental PE. Therefore, the patient was placed on Eliquis, which will be continued. There was evidence of consolidative changes in the left lung base. I would recommend that a repeat CT chest be completed 6 to 8 weeks following treatment of her pneumonia. This note was generated with [employer] dictation software. It may contain incorrect words, spelling, and punctuation that were not noted in checking the note before signing. Code Visit Inpatient E&M: 03225 Subs Hosp L2
[2019-06-29] MEDS: 0.9% Saline Lock 10 ML Syringe IV ×3 (17:06→23:07)
[2019-06-29] MEDS: Baclofen 10 MG Tablet PO (21:57)
[2019-06-29] MEDS: LORazepam 0.5 MG Tablet PO (23:06)
[2019-06-30] VITALS (9 sets, daily range): BP systolic 119–147; BP diastolic 64–81; PULSE 72–104; RESP 15–20; TEMP 36.7–36.9; O2SAT 86–94
[2019-06-30] MEDS: Ipratropium/Albuterol Sulfate 3 ML AMPUL.NEB INHALATION ×2 (07:11→11:09)
[2019-06-30] MEDS: Gabapentin 300 MG Capsule PO (07:33)
[2019-06-30] MEDS: Multivitamins,Therapeutic Tablet 1 TABLET PO (07:33)
[2019-06-30] MEDS: Diclofenac 75 MG Tablet PO (07:33)
[2019-06-30] MEDS: oxyCODONE 5 MG Tablet PO (07:37)
[2019-06-30] MEDS: Fluticasone 0.05% 1 SPRAY NASAL.SRY 2 SPRAY NASAL (10:42)
[2019-06-30] MEDS: guaiFENesin 1,200 MG Tablet 1200 MG PO (10:43)
[2019-06-30] MEDS: Polyethylene Glycol 3350 17 GM PACKET PO (10:43)
[2019-06-30] MEDS: Magnesium Oxide 400 MG Tablet PO (10:44)
[2019-06-30] MEDS: APIXABAN 5 MG TABLET 10 MG PO (10:44)
[2019-06-30] MEDS: DULoxetine Hcl 60 MG Capsule PO (10:44)
[2019-06-30] MEDS: Acyclovir 200 MG Capsule 400 MG PO (10:45)
[2019-06-30] MEDS: Pantoprazole Sodium 20 MG Tablet PO (10:45)
[2019-06-30] MEDS: Ipratropium Bromide 0.06% NASAL SPRAY 2 SPRAY NASAL (10:45)
--- NOTE | 2019-06-30 11:10 | DCINST_ITS ---
You will use the following diet at home:: Cardiac Your food should be the consistency of: Regular Your liquids should be the consistency of: Regular/Thin Discharge Activity: Return to Normal Activity Allergies/Adverse Reactions: Allergies bacitracin Adverse Reaction (Verified 06/27/19 19:00) Itching chlorpheniramine [From Dristan Cold] Adverse Reaction (Verified 06/27/19 19:00) Other loratadine [From Claritin-D] Adverse Reaction (Verified 06/27/19 19:00) Other morphine Adverse Reaction (Verified 06/27/19 19:00) Nausea phenylephrine [From Dristan Cold] Adverse Reaction (Verified 06/27/19 19:00) Other pseudoephedrine [From Claritin-D] Adverse Reaction (Verified 06/27/19 19:00) Other tramadol Adverse Reaction (Verified 06/27/19 19:00) Vomiting novacaine Adverse Reaction (Uncoded 06/27/19 19:00) Unknown Medications to take at Discharge Hydroxyzine HCl 25 mg PO Q8 PRN 08/21/16 Valacyclovir HCl [Valacyclovir] 500 mg PO DAILY 08/21/16 Baclofen 10 mg PO QHS 05/25/17 Cod Liver Oil 1 ea PO DAILY 05/25/17 Oxycodone [Oxyir] 5 mg PO BID PRN PRN 05/25/17 Potassium Citrate [Urocit-K] 10 meq PO DAILY 05/25/17 gabapentin 300 mg capsule 300 mg PO DAILY cap 03/02/18 gabapentin 300 mg capsule 600 mg PO LUNCH cap 03/02/18 Gabapentin [Gralise] 600 mg PO QHS 03/04/18 ipratropium 20 mcg-albuterol 100 mcg/actuation mist for inhalation 2 puff INHALATION Q6H PRN 05/01/18 magnesium 200 mg tablet 400 mg PO DAILY tab 05/01/18 Budesonide/Formoterol 160/4.5 [Symbicort 160/4.5 Mcg Inhaler (SP)] 2 puff INHALATION BID 04/06/19 CycloSPORINE Ophthalmic [Restasis Ophthalmic] 1 drp EACH EYE BID 04/06/19 Esomeprazole Mag Trihydrate [Nexium] 10 mg PO DAILY 04/06/19 Duloxetine Hcl [Cymbalta] 60 mg PO DAILY 04/07/19 Guaifenesin [Mucinex] 1,200 mg PO BID #14 tab 04/10/19 vitamin K2 40 mcg tablet 40 mcg PO DAILY 04/26/19 dupilumab 300 mg/2 mL subcutaneous syringe 300 mg SUBCUT Q2W #2 ml 05/12/19 Albuterol Inhaler [Ventolin Hfa] 2 puff INHALATION Q6H PRN PRN 06/27/19 Denosumab [Prolia] 60 mg SQ .COMPLEX 06/27/19 Fluticasone 0.05% [Flonase Nasal [place]] 2 spray NASAL DAILY 06/27/19 Ipratropium [place] 2 spray NASAL DAILY 06/27/19 Multivitamin [Multivitamins] 1 ea PO DAILY 06/27/19 Acetaminophen [Tylenol Tablet] 650 mg PO Q6H PRN PRN tablet 06/30/19 Apixaban [Eliquis] 10 mg PO BID #62 tab 06/30/19 Doxycycline 100 mg PO BID #9 cap 06/30/19 Prednisone 10 mg PO UD #30 tab 06/30/19 The following prescriptions were given: Doxycycline 100 mg PO BID #9 cap Transmission Status: Pending to [id number] Apixaban [Eliquis] 10 mg PO BID #62 tab Transmission Status: Received by [id number] Prednisone 10 mg PO UD #30 tab Transmission Status: Pending to [id number] Primary Care Physician: Julian Asher MD [Primary Care Provider] - Please follow up with your Primary Care Physician in: 1-2 weeks Test Results: Test results from this visit will be discussed in further detail at your follow- up appointment, if applicable. Please Follow Up With: Rubens Terrazas MD When: 2 weeks Proposed Discharge Date: 06/30/19
--- NOTE | 2019-06-30 11:22 | CASEMGMT ---
Pt does qualify for home oxygen at this time and preference is for [employer] as previously stated. Referral faxed to [facility] at this time and call to Kristel at [facility] to notify of referral, voice understanding. Pt also to be sent home on Eliquis and med previously e-scribed to [facility]. Call to [facility] pharmacy and per karen Castañeda, pt's co-pay is $29.40 at this time. Pt updated on all at this time and provided with 30day free trial Eliquis card at this time, voices understanding of all. Pt voices no further questions/concerns/needs at this time. SStbessie RN CM
[2019-06-30] MEDS: 0.9% Saline Lock 10 ML Syringe IV (11:32)
[2019-06-30] MEDS: Gabapentin 600 MG Tablet PO (11:32)
--- NOTE | 2019-06-30 12:26 | PHA.DC.MC ---
Pharmacy Service has performed discharge medication reconciliation and counseling for this patient. 1. APIXABAN 10MG PO BID X 9 DOSES THEN 5MG PO BID 2. PREDNISONE 40MG PO DAILY X 3 DAYS, THEN 30MG X 3 DAYS, THEN 20MG X 3 DAYS, THEN 10MG X 3 DAYS 3. DOXYCYCLINE 100MG PO BID X 9 DOSES The patient's discharge medication list was reviewed for discrepancies and discrepancies were resolved. Home Medications Hydroxyzine HCl 25 mg PO Q8 PRN 08/21/16 Valacyclovir HCl [Valacyclovir] 500 mg PO DAILY 08/21/16 Baclofen 10 mg PO QHS 05/25/17 Cod Liver Oil 1 ea PO DAILY 05/25/17 Oxycodone [Oxyir] 5 mg PO BID PRN PRN 05/25/17 Potassium Citrate [Urocit-K] 10 meq PO DAILY 05/25/17 gabapentin 300 mg capsule 300 mg PO DAILY cap 03/02/18 gabapentin 300 mg capsule 600 mg PO LUNCH cap 03/02/18 Gabapentin [Gralise] 600 mg PO QHS 03/04/18 ipratropium 20 mcg-albuterol 100 mcg/actuation mist for inhalation 2 puff INHALATION Q6H PRN 05/01/18 magnesium 200 mg tablet 400 mg PO DAILY tab 05/01/18 Budesonide/Formoterol 160/4.5 [Symbicort 160/4.5 Mcg Inhaler (SP)] 2 puff INHALATION BID 04/06/19 CycloSPORINE Ophthalmic [Restasis Ophthalmic] 1 drp EACH EYE BID 04/06/19 Esomeprazole Mag Trihydrate [Nexium] 10 mg PO DAILY 04/06/19 Duloxetine Hcl [Cymbalta] 60 mg PO DAILY 04/07/19 Guaifenesin [Mucinex] 1,200 mg PO BID #14 tab 04/10/19 vitamin K2 40 mcg tablet 40 mcg PO DAILY 04/26/19 dupilumab 300 mg/2 mL subcutaneous syringe 300 mg SUBCUT Q2W #2 ml 05/12/19 Albuterol Inhaler [Ventolin Hfa] 2 puff INHALATION Q6H PRN PRN 06/27/19 Denosumab [Prolia] 60 mg SQ .COMPLEX 06/27/19 Fluticasone 0.05% [Flonase Nasal [place]] 2 spray NASAL DAILY 06/27/19 Ipratropium [place] 2 spray NASAL DAILY 06/27/19 Multivitamin [Multivitamins] 1 ea PO DAILY 06/27/19 Acetaminophen [Tylenol Tablet] 650 mg PO Q6H PRN PRN tab 06/30/19 Apixaban [Eliquis] 10 mg PO BID #62 tab 06/30/19 Doxycycline 100 mg PO BID #9 cap 06/30/19 Prednisone 10 mg PO UD #30 tab 06/30/19 The patient was counseled on the following discharge medications and changes in medications for homegoing were reviewed. The Reason for Use, instructions for use, and potential side effects were reviewed for all new medications. The patient's questions regarding all of their medications were answered. The patient was able to verbally demonstrate an understanding of their discharge medications.
--- NOTE | 2019-06-30 12:46 | PCM.PN.PUL ---
Patient Problems: Active and Suspected Problems (Last Reviewed 06/28/19 @ 02:[address] Marcel Swenson MD) Pulmonary embolism (Suspected) Subjective: The patient was seen and examined at the bedside this morning. Events from the last 24 hours have been reviewed. The patient is currently afebrile, hemodynamically stable and maintaining appropriate oxygen saturations on 3 L/min via nasal cannula. The patient was able to ambulate in the hallway this morning and maintain appropriate oxygen saturations on 4 L/min. Her breathing quality has improved. She still does report some residual pleuritic type chest pain in her left posterior hemithorax. She has been unable to produce any sputum. Objective: The patient's most recent lab work, culture data and imaging studies have all been personally reviewed. Strep and urine Legionella antigens were negative. Respiratory viral panel was negative. - Physical Exam Vitals/I&O's: Vital Signs Temp Pulse Resp BP Pulse Ox 98.1 F 96 17 141/64 H 86 06/30/19 10:35 06/30/19 10:35 06/30/19 10:35 06/30/19 10:35 06/30/19 11:12 Oxygen Flow Rate (L/min) [ 4 AMBULATION with Oxygen] Oxygen Flow Rate (L/min) 4 Oxygen Delivery Method Nasal Cannula Weight: 146 lb 9.613 oz Body Mass Index (BMI) 25.1 Intake and Output for Last 24 Hours 06/28/19 06/29/19 06/30/19 23:59 23:59 23:59 Intake Total 1160 / 1520 896.04 / 896.04 793.96 / 793.96 Balance 1160 / 1520 896.04 / 896.04 793.96 / 793.96 General: Alert, Cooperative, No apparent distress HEENT: Atraumatic, PERRLA, Normocephalic Oral: No Gingival or Mucosal Lesions/ Ulcerations Neck: Supple, No Nodes, Trachea Midline Lungs: Diminished, - - Scant rhonchi. No conversational dyspnea or accessory muscle use. Cardiovascular: Regular rate, Regular Rhythm, Normal S1, Normal S2 Abdomen: Bowel Sounds Present, Soft, Non Tender Extremities: No clubbing, No cyanosis, No edema Skin: No breakdown Musculoskeletal: No Tenderness to Palpation of Joints or Extremities Lymphatic: No Cervical, Supraclavicular, or Inguinal Adenopathy Neurological: Cranial nerves II-XII grossly intact, Neuro grossly intact Psych/Mental Status: Alert and oriented to time, place, person, mood and affect Labs (Last 48 Hours) 06/28/19 22:55 MRSA (PCR) Negative Microbiology 06/28/19 14:45 Mucosa - Nasopharyngeal Respiratory Panel (PCR) - Final 06/28/19 23:57 Urine, Clean Catch Legionella Antigen - Final 06/28/19 23:57 Urine, Clean Catch Streptococcus pneumoniae Antigen (M - Final Clinical Impression(s) from Imaging Studies Chest CTA 06/27/19 19:56 IMPRESSION: Limited evaluation secondary to poor enhancement of the peripheral pulmonary arterial system with a questionable filling defect within a left apical subsegmental branch pulmonary artery. New nondisplaced fracture of the posterior right eighth rib. Consolidative changes at the left base are increased in prominence compared to the prior examination of 05/02/2019 and may represent scarring versus infectious process in the appropriate clinical setting. Malignancy cannot entirely excluded. Electronically Signed: Gary Vargas, at 21:35 EST Tel , Service support , ADDENDUM: 06/27/19 2149 IMPRESSION: Limited evaluation secondary to poor enhancement of the peripheral pulmonary arterial system with a questionable filling defect within a left apical subsegmental branch pulmonary artery. New nondisplaced fracture of the posterior right eighth rib. Consolidative changes at the left base are increased in prominence compared to the prior examination of 05/02/2019 and may represent scarring versus infectious process in the appropriate clinical setting. Malignancy cannot entirely excluded. N.B. : The above information has been verbally conveyed by Gary Vargas to Nanette Oliva MD , , on 06/27/2019 21:42:16 (ET). Electronically Signed: Gary Vargas, at 21:35 EST Tel , Service support , Current Medications Acetaminophen (Tylenol) 650 mg PO Q6H PRN PRN PRN Reason: Pain Score 1-10/Temp > 100.7 F Acyclovir (Zovirax) 400 mg PO BID [facility] Last Admin: 06/30/19 10:45 Dose: 400 mg Documented by: Albuterol Sulfate (Ventolin Aerosols) 2.5 mg INHALATION Q2H PRN PRN PRN Reason: SOB &/OR WHEEZING Albuterol/Ipratropium (Duoneb) 3 ml INHALATION Q4HWA.RT [facility] Last Admin: 06/30/19 11:09 Dose: 3 ml Documented by: Apixaban (Eliquis) 10 mg PO BID [facility] Last Admin: 06/30/19 10:44 Dose: 10 mg Documented by: Artificial Tears (Tears Naturale, Artificial Tears) 1 - 2 drop EACH EYE Q2H PRN PRN PRN Reason: DRY EYES Baclofen (Lioresal) 10 mg PO QHS [facility] Last Admin: 06/29/19 21:57 Dose: 10 mg Documented by: Diclofenac Sodium (Voltaren) 75 mg PO 0800,1500 [facility] Last Admin: 06/30/19 07:33 Dose: 75 mg Documented by: Duloxetine HCl (Cymbalta) 60 mg PO DAILY [facility] Last Admin: 06/30/19 10:44 Dose: 60 mg Documented by: Fluticasone Propionate (Flonase Nasal [place]) 2 spray NASAL DAILY [facility] Last Admin: 06/30/19 10:42 Dose: 2 spray Documented by: [facility]in) [facility] Last Admin: 06/30/19 07:33 Dose: 300 mg Documented by: Gabapentin (Neurontin) 600 mg PO 1200,2200 [facility] Last Admin: 06/30/19 11:32 Dose: 600 mg Documented by: Glucagon () 1 mg IM .X1 PRN PRN Reason: Hypoglycemia Guaifenesin (Mucinex) 1,200 mg PO BID [facility] Last Admin: 06/30/19 10:43 Dose: 1,200 mg Documented by: Hydroxyzine Pamoate (Vistaril Pamoate Capsule) 25 mg PO Q8H PRN PRN PRN Reason: ANXIETY Dextrose (Dextrose 10%-Water) 250 mls @ 999 mls/hr IV .Q16M PRN; Protocol PRN Reason: HYPOGLYCEMIA Sodium Chloride () 250 mls @ 15 mls/hr IV .[id number] PRN PRN Reason: Saline Flush Sodium Chloride () 250 mls @ 15 mls/hr IV .[id number] PRN PRN Reason: Additional IVPB Infusion Piperacillin Sod/Tazobactam (Sod 3.375 gm/ Sodium Chloride) 50 mls @ 12.5 mls/hr IV Q8 [facility] Last Infusion: 06/30/19 11:00 Dose: Infused Documented by: Ipratropium [place] (Atrovent Nasal [place] (G)) 2 spray NASAL DAILY [facility] Last Admin: 06/30/19 10:45 Dose: 2 spray Documented by: Magnesium Oxide (Mag-Ox 400) 400 mg PO DAILY [facility] Last Admin: 06/30/19 10:44 Dose: 400 mg Documented by: Melatonin (Melatonin) 3 mg PO QHS PRN PRN PRN Reason: INSOMNIA Methylprednisolone (Solu-Medrol) 40 mg IV Q6 [facility] Last Admin: 06/30/19 11:32 Dose: 40 mg Documented by: Multivitamins (Multivitamin) 1 tablet PO DAILYCM [facility] Last Admin: 06/30/19 07:33 Dose: 1 tablet Documented by: Nutritional Formula (Lactose Free) (Ensure Enlive) 120 ml PO 4X/DAY [facility] Last Admin: 06/30/19 10:59 Dose: 120 ml Documented by: Ondansetron HCl (Zofran) 4 mg IV Q8H PRN PRN PRN Reason: NAUSEA/VOMITING Oxycodone HCl (Oxyir) 5 mg PO Q6H PRN PRN PRN Reason: Pain Score 6-10/10 Last Admin: 06/30/19 07:37 Dose: 5 mg Documented by: Pantoprazole Sodium (Protonix) 20 mg PO DAILY [facility] Last Admin: 06/30/19 10:45 Dose: 20 mg Documented by: Polyethylene Glycol (Miralax) 17 gm PO DAILY [facility] Last Admin: 06/30/19 10:43 Dose: 17 gm Documented by: Sodium Chloride () 10 - 40 ml IV UD PRN PRN Reason: SALINE FLUSH Last Admin: 06/30/19 11:32 Dose: 10 ml Documented by: Medical Necessity - Tobacco Use Smoking Status: Former smoker Assessment/Plan All Active Problems (Last Reviewed 06/28/19 @ 02:[address] Marcel Swenson MD) Pneumonia (Acute) Bronchiectasis (Acute) RECOMMENDATIONS: 1. Wean supplemental oxygen to maintain saturations at or above 90%. 2. Continue scheduled bronchodilators and IV steroids. At discharge, would recommend a prednisone taper. 3. Okay to transition from IV antibiotics to doxycycline to complete treatment course. 4. Continue Eliquis. 5. Continue aggressive bronchopulmonary hygiene. 6. Recommend repeat CT chest in 6 to 8 weeks. If there is residual consolidation or infiltrative changes in the bases, may need to consider bronchoscopy. 7. The patient should follow-up in the pulmonary medicine clinic within 2 weeks of her discharge from the hospital. IMPRESSIONS: 1. Asthma/bronchiectasis with exacerbation Continue current supportive measures. Wean supplemental oxygen to maintain saturations at or above 90%. The patient has been unable to produce any sputum throughout this hospital course. Continue empiric antimicrobials, bronchodilators and steroids. Recommend completing a 7-day treatment course of antibiotics and providing the patient with a prednisone taper at discharge. Anticipate home-going supplemental oxygen need. I would recommend repeating a chest CT in 6 to 8 weeks to reevaluate for any residual infiltrates or consolidation in the lung bases. If present, may need to consider bronchoscopy. The patient should follow-up in the pulmonary medicine clinic within 2 weeks of her discharge from the hospital. 2. Pulmonary embolism CTA chest revealed findings concerning for segmental PE. Therefore, the patient was placed on Eliquis, which will be continued. There was evidence of consolidative changes in the left lung base. I would recommend that a repeat CT chest be completed 6 to 8 weeks following treatment of her pneumonia. This note was generated with [employer] software. It may contain incorrect words, spelling, and punctuation that were not noted in checking the note before signing. Code Visit Inpatient E&M: 36704 Subs Hosp L2
--- NOTE | 2019-06-30 14:00 | PCM.DC.SUM ---
<Rik Palomo - Last Filed: 06/30/19 14:00> Discharge Date and Diagnosis - Problem List Patient Problems: Active and Suspected Problems (Last Reviewed 06/28/19 @ 02:[address] Marcel Swenson MD) Pulmonary embolism (Suspected) Date of Admission: 06/27/19 Date of Discharge: 06/30/19 - Primary Discharge Diagnosis Active and Suspected Problems (Last Reviewed 06/28/19 @ 02:[address] Marcel Swenson MD) Acute hypoxic respiratory failure 2/2 Pulmonary embolism, Acute bronchiectasis exacerbation, COPD exacerbation Chronic back pain, DDD, prior spinal surgery Osteoporosis GERD - Secondary Discharge Diagnosis Chronic Problems (Last Reviewed 06/28/19 @ 02:[address] Marcel Swenson MD) Scoliosis of thoracolumbar spine (Chronic) Lung nodule (Chronic) Asthma (Chronic) Lumbar disc disease (Chronic) Nephrolithiasis (Chronic) Rhinitis (Chronic) COPD (chronic obstructive pulmonary disease) (Chronic) Hospital Course and Treatment Imaging Results: CT/CTA Chest W/WO Contrast IMPRESSION: Limited evaluation secondary to poor enhancement of the peripheral pulmonary arterial system with a questionable filling defect within a left apical subsegmental branch pulmonary artery. New nondisplaced fracture of the posterior right eighth rib. Consolidative changes at the left base are increased in prominence compared to the prior examination of 05/02/2019 and may represent scarring versus infectious process in the appropriate clinical setting. Malignancy cannot entirely excluded. Echo: Interpretation Summary The estimated ejection fraction is 65 %. Stage 1 diastolic dysfunction. Trivial mitral valve insufficiency. Trivial tricuspid valve insufficiency. Right ventricular systolic pressure estimated to be 30 mmHg. Trivial aortic valve insufficiency. There is no comparison study available. Consult: [place] - Pulmonology Operations: None Procedures: 2-D Echocardiogram Summary of Care Provided: Hospital course: The patient is a 64 year old F with pmhx of COPD, bronchiectasis, former smoker, chronic back pain 2/2 prior surgery, DDD, who presented to the ER with shortness of breath, cough with sputum production brown/yellow, and left upper back pain. She was having fevers at home of 101.2, chills, rigors, and had been on levaquin as an outpatient. She underwent a CTA which showed PE, and possible mass. She was admitted to PCU on o2 and started on eliquis, aerosols, IV abx, and steroids. Pulmonary medicine was consulted. She was changed to zosyn. Infectious workup was unremarkable. Pain and SOB gradually improved. Echo was obtained and was unremarkable. She was unable to be weaned off o2. Patient has active at home and in the community and will require up to 4 L of oxygen to maintain good sats with ambulation. This is ordered for her. She was switched to a prednisone taper, will continue antibiotics with doxycycline to complete a total of 7 days of therapy, and will continue Eliquis for PE. She will need repeat imaging of her chest in 6 to 8 weeks. She needs to follow-up with pulmonology in 2 weeks, her PCP in 1 to 2 weeks. She was discharged home in stable condition. This patient was seen by Rik Palomo PA-C under the supervision of Doctor Banda. [] Patient Problems: Active and Suspected Problems (Last Reviewed 06/28/19 @ 02:[address] Marcel Swenson MD) Pulmonary embolism (Suspected) - Physical Exam Vitals/I&O's: Vital Signs Temp Pulse Resp BP Pulse Ox 98.1 F 102 H 15 147/70 H 94 06/30/19 13:50 06/30/19 13:50 06/30/19 13:50 06/30/19 13:50 06/30/19 13:50 Oxygen Flow Rate (L/min) [ 4 AMBULATION with Oxygen] Oxygen Flow Rate (L/min) 4 Oxygen Delivery Method Nasal Cannula Weight: 146 lb 9.613 oz Body Mass Index (BMI) 25.1 Intake and Output for Last 24 Hours 06/28/19 06/29/19 06/30/19 23:59 23:59 23:59 Intake Total 1160 / 1520 896.04 / 896.04 793.96 / 793.96 Balance 1160 / 1520 896.04 / 896.04 793.96 / 793.96 General: Alert, Oriented x3, Cooperative HEENT: Atraumatic, PERRLA, EOMI, Normocephalic Neck: Supple, No JVD, Negative Carotid Bruits Lungs: Clear to auscultation, Normal air movement, Rales - scant rales, L>R Cardiovascular: Regular rate, No murmurs Abdomen: Bowel Sounds Present, Soft, Non Tender Extremities: No edema, Capillary Refill Less than 3 Seconds Skin: No rashes, No breakdown Musculoskeletal: No Tenderness to Palpation of Joints or Extremities Neurological: Cranial nerves II-XII grossly intact Psych/Mental Status: Normal Affect, Appropriate, Alert and oriented to time, place, person, mood and affect Microbiology Past 72 Hours 06/28/19 14:45 Mucosa - Nasopharyngeal Respiratory Panel (PCR) - Final 06/28/19 23:57 Urine, Clean Catch Legionella Antigen - Final 06/28/19 23:57 Urine, Clean Catch Streptococcus pneumoniae Antigen (M - Final Current Medications Acetaminophen (Tylenol) 650 mg PO Q6H PRN PRN PRN Reason: Pain Score 1-10/Temp > 100.7 F Acyclovir (Zovirax) 400 mg PO BID [facility] Last Admin: 06/30/19 10:45 Dose: 400 mg Documented by: Albuterol Sulfate (Ventolin Aerosols) 2.5 mg INHALATION Q2H PRN PRN PRN Reason: SOB &/OR WHEEZING Albuterol/Ipratropium (Duoneb) 3 ml INHALATION Q4HWA.RT [facility] Last Admin: 06/30/19 11:09 Dose: 3 ml Documented by: Apixaban (Eliquis) 10 mg PO BID [facility] Last Admin: 06/30/19 10:44 Dose: 10 mg Documented by: Artificial Tears (Tears Naturale, Artificial Tears) 1 - 2 drop EACH EYE Q2H PRN PRN PRN Reason: DRY EYES Baclofen (Lioresal) 10 mg PO QHS [facility] Last Admin: 06/29/19 21:57 Dose: 10 mg Documented by: Diclofenac Sodium (Voltaren) 75 mg PO 0800,1500 [facility] Last Admin: 06/30/19 07:33 Dose: 75 mg Documented by: Duloxetine HCl (Cymbalta) 60 mg PO DAILY [facility] Last Admin: 06/30/19 10:44 Dose: 60 mg Documented by: Fluticasone Propionate (Flonase Nasal [place]) 2 spray NASAL DAILY [facility] Last Admin: 06/30/19 10:42 Dose: 2 spray Documented by: Gabapentin (Neurontin) 300 mg PO DAILYCM [facility] Last Admin: 06/30/19 07:33 Dose: 300 mg Documented by: Gabapentin (Neurontin) 600 mg PO 1200,2200 [facility] Last Admin: 06/30/19 11:32 Dose: 600 mg Documented by: Glucagon () 1 mg IM .X1 PRN PRN Reason: Hypoglycemia Guaifenesin (Mucinex) 1,200 mg PO BID [facility] Last Admin: 06/30/19 10:43 Dose: 1,200 mg Documented by: Hydroxyzine Pamoate (Vistaril Pamoate Capsule) 25 mg PO Q8H PRN PRN PRN Reason: ANXIETY Dextrose (Dextrose 10%-Water) 250 mls @ 999 mls/hr IV .Q16M PRN; Protocol PRN Reason: HYPOGLYCEMIA Sodium Chloride () 250 mls @ 15 mls/hr IV .[id number] PRN PRN Reason: Saline Flush Sodium Chloride () 250 mls @ 15 mls/hr IV .[id number] PRN PRN Reason: Additional IVPB Infusion Piperacillin Sod/Tazobactam (Sod 3.375 gm/ Sodium Chloride) 50 mls @ 12.5 mls/hr IV Q8 [facility] Last Infusion: 06/30/19 11:00 Dose: Infused Documented by: Ipratropium [place] (Atrovent Nasal [place] (G)) 2 spray NASAL DAILY [facility] Last Admin: 06/30/19 10:45 Dose: 2 spray Documented by: Magnesium Oxide (Mag-Ox 400) 400 mg PO DAILY [facility] Last Admin: 06/30/19 10:44 Dose: 400 mg Documented by: Melatonin (Melatonin) 3 mg PO QHS PRN PRN PRN Reason: INSOMNIA Methylprednisolone (Solu-Medrol) 40 mg IV Q6 [facility] Last Admin: 06/30/19 11:32 Dose: 40 mg Documented by: [facility] Last Admin: 06/30/19 07:33 Dose: 1 tablet Documented by: Nutritional Formula (Lactose Free) (Ensure Enlive) 120 ml PO 4X/DAY [facility] Last Admin: 06/30/19 10:59 Dose: 120 ml Documented by: Ondansetron HCl (Zofran) 4 mg IV Q8H PRN PRN PRN Reason: NAUSEA/VOMITING Oxycodone HCl (Oxyir) 5 mg PO Q6H PRN PRN PRN Reason: Pain Score 6-10/10 Last Admin: 06/30/19 07:37 Dose: 5 mg Documented by: Pantoprazole Sodium (Protonix) 20 mg PO DAILY [facility] Last Admin: 06/30/19 10:45 Dose: 20 mg Documented by: Polyethylene Glycol (Miralax) 17 gm PO DAILY [facility] Last Admin: 06/30/19 10:43 Dose: 17 gm Documented by: Sodium Chloride () 10 - 40 ml IV UD PRN PRN Reason: SALINE FLUSH Last Admin: 06/30/19 11:32 Dose: 10 ml Documented by: Discharge Diet: Low fat/ Low Cholesterol, 2000 mg Sodium Diet Discharge Activity: Return to Normal Activity Home Medications: Medications to take at Discharge Hydroxyzine HCl 25 mg PO Q8 PRN 08/21/16 Valacyclovir HCl [Valacyclovir] 500 mg PO DAILY 08/21/16 Baclofen 10 mg PO QHS 05/25/17 Cod Liver Oil 1 ea PO DAILY 05/25/17 Oxycodone [Oxyir] 5 mg PO BID PRN PRN 05/25/17 Potassium Citrate [Urocit-K] 10 meq PO DAILY 05/25/17 gabapentin 300 mg capsule 300 mg PO DAILY cap 03/02/18 gabapentin 300 mg capsule 600 mg PO LUNCH cap 03/02/18 Gabapentin [Gralise] 600 mg PO QHS 03/04/18 ipratropium 20 mcg-albuterol 100 mcg/actuation mist for inhalation 2 puff INHALATION Q6H PRN 05/01/18 magnesium 200 mg tablet 400 mg PO DAILY tab 05/01/18 Budesonide/Formoterol 160/4.5 [Symbicort 160/4.5 Mcg Inhaler (SP)] 2 puff INHALATION BID 04/06/19 CycloSPORINE Ophthalmic [Restasis Ophthalmic] 1 drp EACH EYE BID 04/06/19 Esomeprazole Mag Trihydrate [Nexium] 10 mg PO DAILY 04/06/19 Duloxetine Hcl [Cymbalta] 60 mg PO DAILY 04/07/19 Guaifenesin [Mucinex] 1,200 mg PO BID #14 tab 04/10/19 vitamin K2 40 mcg tablet 40 mcg PO DAILY 04/26/19 dupilumab 300 mg/2 mL subcutaneous syringe 300 mg SUBCUT Q2W #2 ml 05/12/19 Albuterol Inhaler [Ventolin Hfa] 2 puff INHALATION Q6H PRN PRN 06/27/19 Denosumab [Prolia] 60 mg SQ .COMPLEX 06/27/19 Fluticasone 0.05% [Flonase Nasal [place]] 2 spray NASAL DAILY 06/27/19 Ipratropium [place] 2 spray NASAL DAILY 06/27/19 Multivitamin [Multivitamins] 1 ea PO DAILY 06/27/19 Acetaminophen [Tylenol Tablet] 650 mg PO Q6H PRN PRN tab 06/30/19 Apixaban [Eliquis] 10 mg PO BID #62 tab 06/30/19 Doxycycline 100 mg PO BID #9 cap 06/30/19 Prednisone 10 mg PO UD #30 tab 06/30/19 Following Prescrptions Were Given to Patient: Doxycycline 100 mg PO BID #9 cap Transmission Status: Received by [id number] Apixaban [Eliquis] 10 mg PO BID #62 tab Transmission Status: Received by [id number] Prednisone 10 mg PO UD #30 tab Transmission Status: Received by [id number] Primary Care Physician: Julian Asher MD [Primary Care Provider] - Please follow up with your Primary Care Physician in: 1-2 weeks Please Follow Up With: Julian Asher MD Please Follow Up With: Rubens Terrazas MD When: 2 weeks Disposition: Home Minutes spent on discharge:: 35 Patient Condition:: Stable Medical Necessity - Tobacco Use Smoking Status: Former smoker Meaningful Use Info Meaningful Use Diagnoses (Choose all that apply): VTE - VTE Anticoag overlap given w/in hospital stay or rx'd at dc?: No Pt receive overlap for 5 days?: No Reason overlap not ordered, prescribed, or given for 5 days: Procedure Not Indicated <Clarke Banda - Last Filed: 06/30/19 14:26> Discharge Date and Diagnosis - Primary Discharge Diagnosis Active and Suspected Problems (Last Reviewed 06/28/19 @ 02:[address] Marcel Swenson MD) Pulmonary embolism (Suspected) - Secondary Discharge Diagnosis Chronic Problems (Last Reviewed 06/28/19 @ 02:[address] Marcel Swenson MD) Scoliosis of thoracolumbar spine (Chronic) Lung nodule (Chronic) Asthma (Chronic) Lumbar disc disease (Chronic) Nephrolithiasis (Chronic) Rhinitis (Chronic) COPD (chronic obstructive pulmonary disease) (Chronic) Hospital Course and Treatment Summary of Care Provided: This patient was seen in conjunction with Rik Palomo PA-C . I have independently interviewed and examined the patient and reviewed pertinent historical, laboratory, and other data. Please refer to Rik Palomo PA-C note for details of this patient's presentation, findings, and recommendations. I have reviewed Rik Palomo PA-C note and concur with documented findings. In brief, patient is a 64-year-old lady who presented with pleuritic chest pain. CTA of the chest obtained was questionable for filling defects? Pulmonary embolism mention of left lower lobe opacity for which malignancy could not be excluded. Patient was started on systemic anticoagulation admitted to a monitored bed with consultation placed to pulmonary medicine Assessment: 1. Pleuritic chest pain 2. Suspected pulmonary embolism 3. Left lower lobe opacity 4. Bronchiectasis 5. Bronchial asthma 6. Chronic back pain 7. Osteoporosis 8. GERD Hospital course: As documented - Physical Exam Vitals/I&O's: Vital Signs Temp Pulse Resp BP Pulse Ox 98.1 F 102 H 15 147/70 H 94 06/30/19 13:50 06/30/19 13:50 06/30/19 13:50 06/30/19 13:50 06/30/19 13:50 Oxygen Flow Rate (L/min) [ 4 AMBULATION with Oxygen] Oxygen Flow Rate (L/min) 4 Oxygen Delivery Method Nasal Cannula Weight: 66.497 kg Body Mass Index (BMI) 25.1 Intake and Output for Last 24 Hours 06/28/19 06/29/19 06/30/19 23:59 23:59 23:59 Intake Total 1160 / 1520 896.04 / 896.04 793.96 / 793.96 Balance 1160 / 1520 896.04 / 896.04 793.96 / 793.96 Microbiology Past 72 Hours 06/28/19 14:45 Mucosa - Nasopharyngeal Respiratory Panel (PCR) - Final 06/28/19 23:57 Urine, Clean Catch Legionella Antigen - Final 06/28/19 23:57 Urine, Clean Catch Streptococcus pneumoniae Antigen (M - Final Current Medications Acetaminophen (Tylenol) 650 mg PO Q6H PRN PRN PRN Reason: Pain Score 1-10/Temp > 100.7 F Acyclovir (Zovirax) 400 mg PO BID [facility] Last Admin: 06/30/19 10:45 Dose: 400 mg Documented by: Albuterol Sulfate (Ventolin Aerosols) 2.5 mg INHALATION Q2H PRN PRN PRN Reason: SOB &/OR WHEEZING Albuterol/Ipratropium (Duoneb) 3 ml INHALATION Q4HWA.RT [facility] Last Admin: 06/30/19 11:09 Dose: 3 ml Documented by: Apixaban (Eliquis) 10 mg PO BID [facility] Last Admin: 06/30/19 10:44 Dose: 10 mg Documented by: Artificial Tears (Tears Naturale, Artificial Tears) 1 - 2 drop EACH EYE Q2H PRN PRN PRN Reason: DRY EYES Baclofen (Lioresal) 10 mg PO QHS [facility] Last Admin: 06/29/19 21:57 Dose: 10 mg Documented by: Diclofenac Sodium (Voltaren) 75 mg PO 0800,1500 [facility] Last Admin: 06/30/19 07:33 Dose: 75 mg Documented by: Duloxetine HCl (Cymbalta) 60 mg PO DAILY [facility] Last Admin: 06/30/19 10:44 Dose: 60 mg Documented by: Fluticasone Propionate (Flonase Nasal [place]) 2 spray NASAL DAILY [facility] Last Admin: 06/30/19 10:42 Dose: 2 spray Documented by: Gabapentin (Neurontin) 300 mg PO DAILYCM [facility] Last Admin: 06/30/19 07:33 Dose: 300 mg Documented by: Gabapentin (Neurontin) 600 mg PO 1200,2200 [facility] Last Admin: 06/30/19 11:32 Dose: 600 mg Documented by: Glucagon () 1 mg IM .X1 PRN PRN Reason: Hypoglycemia Guaifenesin (Mucinex) 1,200 mg PO BID [facility] Last Admin: 06/30/19 10:43 Dose: 1,200 mg Documented by: Hydroxyzine Pamoate (Vistaril Pamoate Capsule) 25 mg PO Q8H PRN PRN PRN Reason: ANXIETY Dextrose (Dextrose 10%-Water) 250 mls @ 999 mls/hr IV .Q16M PRN; Protocol PRN Reason: HYPOGLYCEMIA Sodium Chloride () 250 mls @ 15 mls/hr IV .[id number] PRN PRN Reason: Saline Flush Sodium Chloride () 250 mls @ 15 mls/hr IV .[id number] PRN PRN Reason: Additional IVPB Infusion Piperacillin Sod/Tazobactam (Sod 3.375 gm/ Sodium Chloride) 50 mls @ 12.5 mls/hr IV Q8 [facility] Last Infusion: 06/30/19 11:00 Dose: Infused Documented by: Ipratropium [facility] [place] (Atrovent Nasal [place] (G)) 2 spray NASAL DAILY [facility] Last Admin: 06/30/19 10:45 Dose: 2 spray Documented by: Magnesium Oxide (Mag-Ox 400) 400 mg PO DAILY [facility] Last Admin: 06/30/19 10:44 Dose: 400 mg Documented by: Melatonin (Melatonin) 3 mg PO QHS PRN PRN PRN Reason: INSOMNIA Methylprednisolone (Solu-Medrol) 40 mg IV Q6 [facility] Last Admin: 06/30/19 11:32 Dose: 40 mg Documented by: Multivitamins (Multivitamin) 1 tablet PO DAILYCM [facility] Last Admin: 06/30/19 07:33 Dose: 1 tablet Documented by: Nutritional Formula (Lactose Free) (Ensure Enlive) 120 ml PO 4X/DAY [facility] Last Admin: 06/30/19 10:59 Dose: 120 ml Documented by: Ondansetron HCl (Zofran) 4 mg IV Q8H PRN PRN PRN Reason: NAUSEA/VOMITING Oxycodone HCl (Oxyir) 5 mg PO Q6H PRN PRN PRN Reason: Pain Score 6-10/10 Last Admin: 06/30/19 07:37 Dose: 5 mg Documented by: Pantoprazole Sodium (Protonix) 20 mg PO DAILY [facility] Last Admin: 06/30/19 10:45 Dose: 20 mg Documented by: Polyethylene Glycol (Miralax) 17 gm PO DAILY [facility] Last Admin: 06/30/19 10:43 Dose: 17 gm Documented by: Sodium Chloride () 10 - 40 ml IV UD PRN PRN Reason: SALINE FLUSH Last Admin: 06/30/19 11:32 Dose: 10 ml Documented by: Code Visit Inpatient E&M: [id number] Disch Hosp
--- NOTE | 2019-07-01 13:05 | CASEMGMT ---
MIROSLAVA DIA Discharge Follow-Up Phone Call. Vivi: Digna Strata: 4 Discharge Date: 06/30/19 Adm Dx: Probable PE Call to pt to inquire about how she has been doing since being discharged from the hospital. Pt states she has been doing okay, stating that she has a pulse ox @ home and has been monitoring her oxygen level closely. She states her oxygen level has been around 95% most of the time with the oxygen on. She states she did take the oxygen off for awhile and after 20 min @ rest, oxygen level went down to 89% RA and then she put the oxygen back on. She voices frustration over needing to wear the oxygen, stating I don't have time for this right now. 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 I have plenty to live for. She states she has been taking things one day at a time. She states she has been using the incentive spirometer and pickle to help with her breathing. 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 She is aware of the appts made with Dr Asher and with Dr Terrazas and she states she may call to get an earlier appt with Dr Terrazas. She states she does not have any questions or concerns and gave many compliments about [facility] and the staff. She stated The staff was all excellent. MIROSLAVA DAI thanked pt for taking the time to talk with MIROSLAVA DIA and for choosing [facility]. She thanked MIROSLAVA DIA for calling to check on her. Ryan BANSAL RN, CM
== END 2019-06-30 15:28 | disposition home or self-care (01) | DRG 175 ==
LOC: ED 19:58 → PCU 22:41
PROVIDERS: Internal Medicine Critical Care Medicine; Admitting Provider Hospitalist; Emergency Provider Emergency Medicine; PCP Family Medicine; Visit Provider Internal Medicine
DX: I26.99 Other pulmonary embolism without acute cor pulmonale (principal); J96.01 Acute respiratory failure with hypoxia; J47.1 Bronchiectasis with (acute) exacerbation; Z87.891 Personal history of nicotine dependence; J45.50 Severe persistent asthma, uncomplicated; G89.29 Other chronic pain; M81.0 Age-related osteoporosis without current pathological fracture; K21.9 Gastro-esophageal reflux disease without esophagitis; M54.9 Dorsalgia, unspecified; R91.1 Solitary pulmonary nodule
CPT/HCPCS: 36415; 71045; 71275; 80048; 83605; 83880; 84484; 85025; 85379; 87449; 87633; 87641; 93005; 93306; 94640; 94667; 94668; 97802; 99251; 99283; 99285; J7030; J7040; Q9967; A4216; G0463; J2405

== ENCOUNTER → 2019-07-15 11:13 | Outpatient (CLI) | payer MEDICARE, OTHER, SELFPAY ==
[2019-07-15 06:38] VITALS: BMI 25.1
== END ==
PROVIDERS: PCP Family Medicine; Referring Provider Internal Medicine Critical Care Medicine; Visit Provider Internal Medicine Critical Care Medicine
DX: J44.9 Chronic obstructive pulmonary disease, unspecified (principal)
CPT/HCPCS: 87070; 87077; 87205

== ENCOUNTER 2019-07-30 16:33 | Emergency (ER) | payer MEDICARE, OTHER, SELFPAY ==
[2019-07-15 13:43] VITALS: BMI 24.3
[2019-07-30 16:34] VITALS: BP 122/77; PULSE 100; RESP 20; TEMP 36.6; O2SAT 97
--- NOTE | 2019-07-30 17:00 | ED.DCSUM_ITS ---
History of Present Illness Chief Complaint: Shortness of Breath Narrative: This patient is a 64-year-old female who presents with shortness of breath. She has a history of bronchiectasis. She reports multiple hospitalization over the last few months for exacerbation of bronchiectasis and pneumonia. She was also found to have a pulmonary embolism and is on Eliquis. She recently completed a two-week course of Levaquin a few days ago. Since completing that she has felt increasingly short of breath with increased cough and sputum from baseline. She also reports hypoxia. With ambulation she has desaturated as low as 75%. She does have home oxygen to use as needed but has never really used this before. She also had a fever of greater than 101. She denies any vomiting or diarrhea. She complains of lower back pain which is chronic but otherwise denies any pain. Past Medical History - Allergies and Home Meds Allergies/Adverse Reactions: Allergies bacitracin Adverse Reaction (Verified 07/30/19 16:34) Itching chlorpheniramine [From Dristan Cold] Adverse Reaction (Verified 07/30/19 16:34) Other loratadine [From Claritin-D] Adverse Reaction (Verified 07/30/19 16:34) Other morphine Adverse Reaction (Verified 07/30/19 16:34) Nausea phenylephrine [From Dristan Cold] Adverse Reaction (Verified 07/30/19 16:34) Other pseudoephedrine [From Claritin-D] Adverse Reaction (Verified 07/30/19 16:34) Other tramadol Adverse Reaction (Verified 07/30/19 16:34) Vomiting novacaine Adverse Reaction (Uncoded 07/30/19 16:34) Unknown Primary Care Physician: Julian Asher MD [Primary Care Provider] - Past Medical History: - - Bronchiectasis, pulmonary embolism Surgical History: - Smoking Status: Former smoker - Family History Maternal Family History: Family History (Last Reviewed 07/15/19 @ 13:46 by Anna Ferrer) Mother Cancer Sister Cancer Asthma Grandfather CAD (coronary artery disease) Grandmother Arthritis Father Hypertension Family History: Reports: No pertinent history Paternal Family History: Family History (Last Reviewed 07/15/19 @ 13:46 by Anna Ferrer) Mother Cancer Sister Cancer Asthma Grandfather CAD (coronary artery disease) Grandmother Arthritis Father Hypertension Family History: Reports: No pertinent history Review of Systems All systems negative except as indicated General: Reports: Fever Eyes: Denies: Visual changes - bilaterally ENT: Denies: Bilateral ear pain Cardiovascular: Denies: Chest pain Respiratory: Reports: Dyspnea, Cough, Sputum Gastrointestinal: Denies: Abdominal pain, Nausea, Vomiting, Diarrhea Genitourinary: Denies: Dysuria, Hematuria Musculoskeletal: Reports: Back pain Skin: Denies: Rash Neurological: Denies: Headache Allergy: Denies: Uticaria Physical Exam Vital Signs/Narrative: Vital Signs Temp Pulse Resp BP Pulse Ox 07/30/19 16:34 97.9 F 100 20 H 122/77 H 97 Inital Vital Signs reviewed: Yes General: Well nourished, Well developed Head: Normocephalic Eyes: EOMI ENT: Moist mucous membranes Neck: Supple Cardiovascular: - - Heart is regular rhythm, slightly tachycardic Respiratory: No distress, - - Patient clinically does not appear dyspneic. She is able to speak in long full sentences without any apparent difficulty. Her lungs are actually clear to auscultation. I do not appreciate rales rhonchi or wheezing. Abdomen: Soft Extremities: Nontender Skin: Normal color Neurological: Alert Psychological: Normal affect Diagnostic/Tx/Re-eval Impressions Chest X-Ray 07/30/19 17:05 IMPRESSION: Chronic interstitial thickening. No consolidation Electronically Signed: Pranay Hall MD at 17:16 EDT , Service support , 07/30/19 17:05 Chest 1 View (Portable) [RAD] Stat 07/30/19 17:40 Mucosa - Nasopharyngeal Rapid RSV (DFA) - Final 07/30/19 17:40 Mucosa - Nasopharyngeal Influenza Types A,B Direct FA (MICHAEL) - Final Laboratory Results 07/30/19 07/30/19 07/30/19 17:14 17:14 17:14 WBC 10.5 RBC 4.28 Hgb 13.2 Hct 41.4 MCV 96.7 MCH 30.8 MCHC 31.9 L RDW Std Deviation 49.4 H RDW Coeff of Tarun 13.8 Plt Count 241 MPV 9.7 Immature Gran % (Auto) 0.800 Neut % (Auto) 70.8 H Lymph % (Auto) 16.5 L [place] % (Auto) 8.6 Eos % (Auto) 2.8 Baso % (Auto) 0.5 Absolute Neuts (auto) 7.5 Absolute Lymphs (auto) 1.74 Nucleated RBC % 0 Sodium 136 Potassium 4.0 Chloride 102 Carbon Dioxide 27.0 Anion Gap 7 BUN 16 Creatinine 0.77 Estim Creat Clear Calc 75.11 Est GFR (MDRD) Af Amer 97 Est GFR (MDRD) Non-Af 80 BUN/Creatinine Ratio 20.9 H Glucose 93 Lactic Acid 0.8 Calcium 9.2 - Medical Decision Making I have been told that current policy is I am only able to obtain rapid influenza and RSV testing from the emergency department and that if the patient is admitted they next require a respiratory panel as an inpatient to check for alternative pathogens before testing for coronavirus/COVID-19 can be sent due to limited availability of testing. Laboratory studies and chest x-ray were also ordered. Chest x-ray shows no acute process. Laboratory studies are unremarkable with a negative influenza and normal lactic acid. I spoke to Dr. Mao who is covering for the patient's county agent. Given that the patient is not hypoxic on oxygen which she has at home and otherwise has stable vitals without focal infiltrate and is able to speak without difficulty we do not believe the patient would benefit from hospitalization at this time especially given the increased risk in the setting of the current coronavirus pandemic. Patient was written for doxycycline but advised to monitor symptoms and only start this if her symptoms worsen over the next couple of days and patient to be seen in the office on Friday. Patient is agreeable to this plan. She is stable and resting comfortably on reevaluation and was discharged home. ED Disposition - Plan for ED Patient: Disposition: Home or Assisted Living Diagnosis: Bronchiectasis Instructions: Bronchiectasis Prescriptions: Doxycycline 100 mg PO BID #20 cap Prescription Printed Referrals: Julian Asher MD [Primary Care Provider] - Rubens Terrazas MD [STAFF PHYSICIAN] -
--- NOTE | 2019-07-30 17:05 | RAD_ITS ---
STUDY: X-RAY CHEST REASON FOR EXAM: Female, 64 years old. C/O SOB AND FEVER WITH LOW PULSE OX TECHNIQUE: Single AP portable view of the chest. COMPARISON: June 27, 2019 FINDINGS: Chronic mild interstitial thickening reidentified in both lungs. No focal consolidation is seen.. There is no demonstrated pleural abnormality. Normal size heart. Stable visualized mediastinum and osseous structures. RAD/Chest 1 View (Portable) IMPRESSION: Chronic interstitial thickening. No consolidation Electronically Signed: Pranay Hall MD at 17:16 EDT , Service support ,
[2019-07-30 17:18] VITALS: PULSE 95; O2SAT 94
[2019-07-30 17:45] LABS: Absolute Lymphocyte Count 1.74 X10^3/uL (0.83-4.51); Absolute Neutrophil Count 7.5 X10^3/uL (2.0-7.7); Basophil# 0.05 X10^3/uL; Basophil% 0.5 % (0-1); Eosinophils% 2.8 % (0-5); Hematocrit 41.4 % (37-47); Hemoglobin 13.2 g/dL (12.0-15.0); Lymphocyte # 1.74 X10^3/ul (4.0); Lymphocyte % 16.5 % (19-41); Mean Corp Hgb Conc 31.9 g/dL (32-36); Mean Corpuscular Hgb 30.8 pg (27.0-32.0); Mean Corpuscular Volume 96.7 fL (81-99); Mean Platelet Vol. 9.7 fl (6.2-12.0); Monocyte# 0.91 X10^3/uL; Monocyte% 8.6 % (0-10); NRBC Flagged by Analyzer 0 % (0-5); Neutrophil # 7.46 X10^3/uL (2.7-7.7); Neutrophil % 70.8 % (47-70); Platelet Count 241 K/mm3 (150-450); RBC Distribution Width CV 13.8 % (11.6-14.6); RBC Distribution Width SD 49.4 fl (35.1-43.9); Red Blood Count 4.28 M/mm3 (4.2-5.4); White Blood Count 10.5 K/mm3 (4.4-11.0)
[2019-07-30 17:55] LABS: Anion Gap 7 (5-15); BUN 16 mg/dL (7-18); BUN/Creat Ratio 20.9 RATIO (10-20); Calcium,Total 9.2 mg/dL (8.5-10.1); Chloride 102 mmol/L (98-107); Creatinine, Serum 0.77 mg/dL (0.55-1.02); EST Glomerular Filtration Rate 80 mL/min (>60); Est Glom Filt Rate - Afr Amer 97 mL/min (>60); Estimated Creatinine Clearance 75.11 ml/min; Glucose 93 mg/dL (74-106); Sodium Level 136 mmol/L (136-145)
[2019-07-30 18:07] VITALS: BP 123/77; PULSE 106; RESP 18; TEMP 36.9; O2SAT 96
[2019-07-30 18:13] LABS: Lactic Acid 0.8 mmol/L (0.4-1.9)
[2019-07-30 19:05] VITALS: BP 127/76; PULSE 102; RESP 18; O2SAT 94
== END 2019-07-30 19:06 | disposition home or self-care (01) ==
PROVIDERS: Emergency Provider Emergency Medicine; PCP Family Medicine
DX: J47.9 Bronchiectasis, uncomplicated (principal); R09.02 Hypoxemia; R50.9 Fever, unspecified; M54.5 Low back pain; G89.29 Other chronic pain; Z79.01 Long term (current) use of anticoagulants; Z86.711 Personal history of pulmonary embolism; Z87.891 Personal history of nicotine dependence; Z88.8 Allergy status to other drugs, medicaments and biological substances; Z88.5 Allergy status to narcotic agent; Z79.899 Other long term (current) drug therapy
CPT/HCPCS: 71045; 80048; 83605; 85025; 87040; 87804; 87807; 99284; A4216

== ENCOUNTER → 2019-08-02 13:35 | Outpatient (CLI) | payer MEDICARE, OTHER, SELFPAY ==
[2019-07-15 13:43] VITALS: BMI 24.3
--- NOTE | 2019-08-02 13:37 | CT_ITS ---
STUDY: CT CHEST WITHOUT CONTRAST REASON FOR EXAM: Female, 64 years old. PT STATED PERSISTENT COUGH, FEVER, HYPOXIA, RECENTLY HOSPITALIZED WITH PNEUMONIA RADIATION DOSAGE (If Supplied By Facility): CTDIvol = ( 8.13 ) mGy, DLP = ( 273.86 ) mGycm TECHNIQUE: Transaxial imaging was performed without the administration of intravenous contrast material. Individualized dose optimization techniques were used for this CT. COMPARISON: 06/27/2019 FINDINGS: Mild emphysematous changes with some subpleural blebs in the apices of lungs. Mild bilateral apical scarring. Mild diffuse cylindrical bronchiectasis which is unchanged. Interval resolution of the bibasilar atelectasis or pneumonia. Interval development of fine reticular interstitial densities within the lungs bilaterally most prominent in the upper lobes likely consistent with atypical pneumonia. No noncalcified nodule or mass. There is no demonstrated pleural abnormality. Normal heart and pericardium. There are calcifications of the coronary arteries. Normal mediastinum. Normal hilar regions. Normal unenhanced pulmonary arteries. Normal aorta arch and descending thoracic aorta. Dextroscoliosis of the thoracic spine with degenerative disc disease. There is no demonstrated abnormality of the visualized upper abdomen. CT/Chest without Contrast IMPRESSION: 1. Interval resolution of bibasilar atelectasis or pneumonia. 2. Interval development of the fine reticular interstitial densities in the both lungs more prominent in the upper lobes likely consistent with atypical pneumonia. 3. Similar emphysema, scarring, and diffuse cylindrical bronchiectasis. Electronically Signed: Russell Macias MD at 15:14 EDT Tel , Service support ,
== END ==
PROVIDERS: PCP Family Medicine; Referring Provider Internal Medicine Critical Care Medicine; Visit Provider Internal Medicine Critical Care Medicine
DX: J47.9 Bronchiectasis, uncomplicated (principal); M41.85 Other forms of scoliosis, thoracolumbar region; R05 Cough; R50.9 Fever, unspecified
CPT/HCPCS: 71250

== ENCOUNTER → 2019-08-10 11:26 | Outpatient (CLI) | payer MEDICARE, OTHER, SELFPAY ==
[2019-08-10 12:09] LABS: Absolute Lymphocyte Count 1.71 X10^3/uL (0.83-4.51); Absolute Neutrophil Count 5.3 X10^3/uL (2.0-7.7); Basophil# 0.05 X10^3/uL; Basophil% 0.6 % (0-1); Eosinophil# 0.21 X10^3/uL; Eosinophils% 2.6 % (0-5); Hematocrit 39.3 % (37-47); Hemoglobin 12.5 g/dL (12.0-15.0); Lymphocyte # 1.71 X10^3/ul (4.0); Lymphocyte % 21.1 % (19-41); Mean Corp Hgb Conc 31.8 g/dL (32-36); Mean Corpuscular Hgb 30.3 pg (27.0-32.0); Mean Corpuscular Volume 95.4 fL (81-99); Mean Platelet Vol. 9.8 fl (6.2-12.0); Monocyte# 0.83 X10^3/uL; Monocyte% 10.2 % (0-10); NRBC Flagged by Analyzer 0 % (0-5); Neutrophil # 5.27 X10^3/uL (2.7-7.7); Platelet Count 322 K/mm3 (150-450); RBC Distribution Width SD 45.1 fl (35.1-43.9); Red Blood Count 4.12 M/mm3 (4.2-5.4); White Blood Count 8.1 K/mm3 (4.4-11.0)
[2019-08-10 13:15] LABS: Rheumatoid Factor < 10.0 IU/mL (<15)
[2019-08-11 13:09] LABS: ANTINUCLEAR ANTIBODIES DIRECT Negative (Negative)
[2019-08-12 03:06] LABS: Cytoplasmic Ab (C-ANCA) <1:20 titer (Neg:<1:20)
[2019-08-12 08:04] LABS: CCP IgG Antibodies 20 units (0-19); Perinuclear Ab (P-ANCA) <1:20 titer (Neg:<1:20)
== END ==
PROVIDERS: PCP Family Medicine; Referring Provider Internal Medicine Critical Care Medicine; Visit Provider Internal Medicine Critical Care Medicine
DX: J45.909 Unspecified asthma, uncomplicated (principal); J47.9 Bronchiectasis, uncomplicated; R09.02 Hypoxemia
CPT/HCPCS: 36415; 85025; 86038; 86200; 86225; 86235; 86256; 86431

== ENCOUNTER → 2020-01-17 16:18 | Outpatient (CLI) | payer MEDICARE, OTHER, SELFPAY ==
--- NOTE | 2020-01-17 16:21 | RAD_ITS ---
STUDY: X-RAY - LEFT WRIST REASON FOR EXAM: Female, 64 years old. FALL, WRIST PAIN AND DEFORMITY TECHNIQUE: 3 view(s) of the wrist were obtained. COMPARISON: None. FINDINGS: Acute mildly impacted fracture of the distal radius with very minor overlapping of fracture fragments. Nondisplaced transverse fracture of the ulnar styloid. Normal radiocarpal articulation. Normal distal radioulnar articulation. Normal carpal bones. Normal carpal articulations. Normal carpometacarpal articulation of the thumb. Normal second through fifth carpometacarpal articulations. Normal visualized metacarpal bones. Few soft tissue swelling of the distal forearm and wrist. RAD/Wrist min 3 Views IMPRESSION: Acute fractures of the distal radius and ulna styloid Electronically Signed: Vinny Arzola MD at 16:55 EDT , Service support ,
== END ==
PROVIDERS: PCP Family Medicine; Referring Provider Family Medicine; Visit Provider Family Medicine
DX: S52.502A Unspecified fracture of the lower end of left radius, initial encounter for closed fracture (principal); S52.615A Nondisplaced fracture of left ulna styloid process, initial encounter for closed fracture; W19.XXXA Unspecified fall, initial encounter; Y93.9 Activity, unspecified; Y92.9 Unspecified place or not applicable; Y99.9 Unspecified external cause status
CPT/HCPCS: 73110

== ENCOUNTER 2020-01-17 16:56 | Emergency (ER) | payer MEDICARE, OTHER, SELFPAY ==
[2020-01-17 16:58] VITALS: BP 160/63; BP 160/93; PULSE 77; PULSE 81; RESP 17; RESP 18; TEMP 36.4; O2SAT 96; O2SAT 98; BMI 25.7
--- NOTE | 2020-01-17 17:26 | ED.VIS.GEN ---
History of Present Illness Chief Complaint: Upper Extremity Injury Informant: Patient Onset: Today Current Severity: Moderate Maximum Severity: Moderate Narrative: Patient sent over from PCPs office secondary to left wrist fracture. She is right-hand dominant. She states she was try to give her grandson a high-five when she lost her balance and fell. She instinctively put her left hand out to catch herself. She is right-hand dominant. - Past Medical History (1) Arthritis Status: Chronic (2) Asthma Status: Chronic (3) COPD (chronic obstructive pulmonary disease) Status: Chronic (4) Lumbar disc disease Status: Chronic (5) Nephrolithiasis Status: Chronic (6) Pulmonary embolism Status: Resolved Past Medical History - Allergies and Home Meds Allergies/Adverse Reactions: Allergies bacitracin Adverse Reaction (Verified 01/17/20 16:58) Itching chlorpheniramine [From Dristan Cold] Adverse Reaction (Verified 01/17/20 16:58) Other loratadine [From Claritin-D] Adverse Reaction (Verified 01/17/20 16:58) Other morphine Adverse Reaction (Verified 01/17/20 16:58) Nausea phenylephrine [From Dristan Cold] Adverse Reaction (Verified 01/17/20 16:58) Other pseudoephedrine [From Claritin-D] Adverse Reaction (Verified 01/17/20 16:58) Other tramadol Adverse Reaction (Verified 01/17/20 16:58) Vomiting novacaine Adverse Reaction (Uncoded 07/30/19 16:34) Unknown Primary Care Physician: Julian Asher MD [Primary Care Provider] - Prior records reviewed: Yes Surgical History: - Lives: Spouse/ Significant Other Smoking Status: Never smoker - Family History Maternal Family History: Family History (Last Reviewed 07/15/19 @ 13:46 by Anna Ferrer) Mother Cancer Sister Cancer Asthma Grandfather CAD (coronary artery disease) Grandmother Arthritis Father Hypertension Family History: Reports: No pertinent history Paternal Family History: Family History (Last Reviewed 07/15/19 @ 13:46 by Anna Ferrer) Mother Cancer Sister Cancer Asthma Grandfather CAD (coronary artery disease) Grandmother Arthritis Father Hypertension Family History: Reports: No pertinent history Review of Systems General: Denies: Chills, Fever Eyes: Denies: Visual changes - bilaterally ENT: Denies: Bilateral ear pain Cardiovascular: Denies: Chest pain Respiratory: Denies: Dyspnea, Cough Gastrointestinal: Denies: Abdominal pain Musculoskeletal: Reports: Extremity Pain Skin: Denies: Rash Neurological: Denies: Weakness, Parasthesia Hematologic: Denies: Easy bruising, Easy bleeding Allergy: Denies: Uticaria Physical Exam Vital Signs/Narrative: Vital Signs Temp Pulse Resp BP Pulse Ox 01/17/20 16:58 97.5 F L 77 18 160/63 H 98 Inital Vital Signs reviewed: Yes General: Well nourished, Well developed Head: Normocephalic ENT: Moist mucous membranes Neck: Supple Cardiovascular: Regular rate, Regular rhythm Respiratory: No distress, CTA bilaterally Abdomen: Soft, Nontender Extremities: - - Tenderness to palpation and edema around the left wrist. She is able to wiggle fingers and has good cap refill distally. Normal sensation. No tenderness of the elbow or shoulder. Neurological: Alert, Oriented x3 Psychological: Normal affect Diagnostic/Tx/Re-eval Left wrist x-rays were obtained at outpatient center. This reveals acute mildly impacted fracture of the distal radius with very minor overlapping of the fracture fragments. There is a nondisplaced fracture of the ulnar styloid. Normal radiocarpal articulation. - Medical Decision Making Patient did take oxycodone prior to arrival for pain. X-rays reviewed with her and patient is placed on AP Ortho-Glass splint. Following splint application she has good cap refill distally and can wiggle fingers. She will be given a sling. She declines an order for pain medication stating that she has oxycodone at home that she uses for chronic back pain. She wishes to see Dr. Saldivar in follow-up and will be given his information. Procedures - Upper Extremity Splints Upper Extremity Splint: Orthoglass Splint Fabrication: Fabricated Location: Left ED Disposition - Plan for ED Patient: Disposition: Home or Assisted Living Diagnosis: Left wrist fracture Instructions: ED WRIST FRACTURE General Referrals: Gerardo Saldivar DO [STAFF PHYSICIAN] - 5-7 Days
[2020-01-17 17:39] VITALS: PULSE 74; RESP 17; O2SAT 98
== END 2020-01-17 17:40 | disposition home or self-care (01) ==
PROVIDERS: Emergency Provider Emergency Medicine; PCP Family Medicine
DX: S52.502A Unspecified fracture of the lower end of left radius, initial encounter for closed fracture (principal); S52.615A Nondisplaced fracture of left ulna styloid process, initial encounter for closed fracture; W19.XXXA Unspecified fall, initial encounter; Y93.9 Activity, unspecified; Y92.9 Unspecified place or not applicable; Y99.9 Unspecified external cause status; J44.9 Chronic obstructive pulmonary disease, unspecified; M19.90 Unspecified osteoarthritis, unspecified site; Z79.01 Long term (current) use of anticoagulants; Z79.899 Other long term (current) drug therapy; Z86.711 Personal history of pulmonary embolism
CPT/HCPCS: 29125; 73110; 99283

== ENCOUNTER → 2020-01-28 13:42 | Outpatient (CLI) | payer MEDICARE, OTHER, SELFPAY ==
[2020-01-17 16:58] VITALS: BMI 25.7
[2020-01-28 15:18] LABS: Absolute Lymphocyte Count 1.72 X10^3/uL (0.83-4.51); Absolute Neutrophil Count 3.7 X10^3/uL (2.0-7.7); Basophil# 0.05 X10^3/uL; Basophil% 0.8 % (0-1); Eosinophil# 0.14 X10^3/uL; Eosinophils% 2.3 % (0-5); Hematocrit 40.7 % (37-47); Hemoglobin 12.9 g/dL (12.0-15.0); Lymphocyte # 1.72 X10^3/ul (4.0); Lymphocyte % 27.7 % (19-41); Mean Corp Hgb Conc 31.7 g/dL (32-36); Mean Corpuscular Hgb 32.6 pg (27.0-32.0); Mean Corpuscular Volume 102.8 fL (81-99); Mean Platelet Vol. 10.4 fl (6.2-12.0); Monocyte# 0.63 X10^3/uL; Monocyte% 10.1 % (0-10); NRBC Flagged by Analyzer 0 % (0-5); Neutrophil # 3.65 X10^3/uL (2.7-7.7); Neutrophil % 58.8 % (47-70); Platelet Count 288 K/mm3 (150-450); RBC Distribution Width CV 13.2 % (11.6-14.6); RBC Distribution Width SD 50.9 fl (35.1-43.9); Red Blood Count 3.96 M/mm3 (4.2-5.4); White Blood Count 6.2 K/mm3 (4.4-11.0)
[2020-01-28 15:58] LABS: ALB/GLOB Ratio 0.8 RATIO (0.9-2.4); AST(SGOT) 21 U/L (15-37); Alanine Aminotransfer ALT/SGPT 27 U/L (13-56); Albumin, Serum 3.4 g/dL (3.2-5.0); Alkaline Phosphatase 115 U/L (45-117); Anion Gap 4 (5-15); BUN 20 mg/dL (7-18); BUN/Creat Ratio 20.2 RATIO (10-20); Calcium,Total 9.1 mg/dL (8.5-10.1); Chloride 105 mmol/L (98-107); Creatinine, Serum 0.99 mg/dL (0.55-1.02); EST Glomerular Filtration Rate 60 mL/min (>60); Est Glom Filt Rate - Afr Amer 72 mL/min (>60); Globulin 4.1 g/dL (2.2-4.2); Glucose 141 mg/dL (74-106); Magnesium 2.3 mg/dL (1.6-2.6); Potassium 3.4 mmol/L (3.5-5.1); Protein, Total 7.5 g/dL (6.4-8.2); Sodium Level 140 mmol/L (136-145)
== END ==
PROVIDERS: PCP Family Medicine; Referring Provider Family Medicine; Visit Provider Family Medicine
DX: R60.9 Edema, unspecified (principal)
CPT/HCPCS: 36415; 80053; 83735; 85025

== ENCOUNTER → 2020-02-09 11:26 | Outpatient (CLI) | payer MEDICARE, OTHER, SELFPAY ==
[2020-01-17 16:58] VITALS: BMI 25.7
[2020-02-09 15:13] LABS: Absolute Lymphocyte Count 1.84 X10^3/uL (0.83-4.51); Absolute Neutrophil Count 4.3 X10^3/uL (2.0-7.7); Basophil# 0.07 X10^3/uL; Eosinophil# 0.12 X10^3/uL; Eosinophils% 1.7 % (0-5); Hemoglobin 13.3 g/dL (12.0-15.0); Lymphocyte # 1.84 X10^3/ul (4.0); Mean Corp Hgb Conc 30.9 g/dL (32-36); Mean Corpuscular Hgb 31.7 pg (27.0-32.0); Mean Corpuscular Volume 102.4 fL (81-99); Mean Platelet Vol. 10.7 fl (6.2-12.0); Monocyte# 0.71 X10^3/uL; NRBC Flagged by Analyzer 0 % (0-5); Neutrophil # 4.32 X10^3/uL (2.7-7.7); Platelet Count 293 K/mm3 (150-450); RBC Distribution Width CV 13.2 % (11.6-14.6); RBC Distribution Width SD 50.5 fl (35.1-43.9); White Blood Count 7.1 K/mm3 (4.4-11.0)
[2020-02-09 15:45] LABS: AST(SGOT) 17 U/L (15-37); Alanine Aminotransfer ALT/SGPT 33 U/L (13-56); Albumin, Serum 3.8 g/dL (3.2-5.0); Alkaline Phosphatase 136 U/L (45-117); Anion Gap 9 (5-15); BUN 20 mg/dL (7-18); BUN/Creat Ratio 22.9 RATIO (10-20); Calcium,Total 8.9 mg/dL (8.5-10.1); Chloride 105 mmol/L (98-107); Creatinine, Serum 0.87 mg/dL (0.55-1.02); EST Glomerular Filtration Rate 69 mL/min (>60); Est Glom Filt Rate - Afr Amer 83 mL/min (>60); Globulin 3.8 g/dL (2.2-4.2); Glucose 113 mg/dL (74-106); Magnesium 2.5 mg/dL (1.6-2.6); Potassium 3.7 mmol/L (3.5-5.1); Protein, Total 7.6 g/dL (6.4-8.2); Sodium Level 140 mmol/L (136-145)
== END ==
PROVIDERS: PCP Family Medicine; Referring Provider Family Medicine; Visit Provider Family Medicine
DX: M79.89 Other specified soft tissue disorders (principal); D64.9 Anemia, unspecified
CPT/HCPCS: 36415; 80053; 83735; 85025

== ENCOUNTER → 2020-03-23 13:24 | Outpatient (CLI) | payer MEDICARE, OTHER, SELFPAY ==
[2020-03-06 11:18] VITALS: BMI 24.9
[2020-03-23 15:59] LABS: Anion Gap 7 (5-15); BUN 27 mg/dL (7-18); Calcium,Total 9.2 mg/dL (8.5-10.1); Chloride 108 mmol/L (98-107); Creatinine, Serum 0.82 mg/dL (0.55-1.02); EST Glomerular Filtration Rate 74 mL/min (>60); Est Glom Filt Rate - Afr Amer 90 mL/min (>60); Glucose 89 mg/dL (74-106); Sodium Level 140 mmol/L (136-145)
== END ==
PROVIDERS: PCP Family Medicine; Referring Provider Family Medicine; Visit Provider Family Medicine
DX: E87.6 Hypokalemia (principal)
CPT/HCPCS: 36415; 80048

== ENCOUNTER → 2020-03-29 15:14 | Outpatient (CLI) | payer MEDICARE, OTHER, SELFPAY ==
[2020-03-06 11:18] VITALS: BMI 24.9
[2020-03-29 17:39] LABS: Magnesium 2.4 mg/dL (1.6-2.6)
[2020-03-31 12:52] LABS: PTHIN 65.4 pg/mL (18.4-80.1)
== END ==
PROVIDERS: Family Medicine; PCP Family Medicine; Referring Provider Family Medicine; Visit Provider Family Medicine
DX: M81.0 Age-related osteoporosis without current pathological fracture (principal)
CPT/HCPCS: 36415; 82306; 82330; 83735; 83970

== ENCOUNTER → 2020-04-04 15:27 | Outpatient (CLI) | payer MEDICARE, OTHER, SELFPAY ==
[2020-03-06 11:18] VITALS: BMI 24.9
[2020-04-04 15:58] VITALS: BP 123/66; PULSE 71; RESP 16; TEMP 36.6; O2SAT 98; BMI 24.9
[2020-04-04] MEDS: Zoledronic Acid 5 MG 100 ML 300 MG IV (16:08)
[2020-04-04 16:35] VITALS: BP 113/65; PULSE 76; RESP 16; TEMP 35.7; O2SAT 100
== END ==
PROVIDERS: PCP Family Medicine; Referring Provider Family Medicine; Visit Provider Family Medicine
DX: M81.0 Age-related osteoporosis without current pathological fracture (principal)
CPT/HCPCS: 96365; A4216; J3489

== ENCOUNTER → 2020-04-18 12:19 | Outpatient (CLI) | payer MEDICARE, OTHER, SELFPAY ==
[2020-04-04 15:58] VITALS: BMI 24.9
[2020-04-18 15:25] LABS: Absolute Lymphocyte Count 1.75 X10^3/uL (0.83-4.51); Absolute Neutrophil Count 5.3 X10^3/uL (2.0-7.7); Basophil# 0.05 X10^3/uL; Basophil% 0.6 % (0-1); Eosinophil# 0.07 X10^3/uL; Eosinophils% 0.9 % (0-5); Hematocrit 40.5 % (37-47); Hemoglobin 13.2 g/dL (12.0-15.0); Lymphocyte # 1.75 X10^3/ul (4.0); Lymphocyte % 22.2 % (19-41); Mean Corp Hgb Conc 32.6 g/dL (32-36); Mean Corpuscular Hgb 32.5 pg (27.0-32.0); Mean Corpuscular Volume 99.8 fL (81-99); Monocyte# 0.75 X10^3/uL; Monocyte% 9.5 % (0-10); NRBC Flagged by Analyzer 0 % (0-5); Neutrophil # 5.25 X10^3/uL (2.7-7.7); Neutrophil % 66.4 % (47-70); Platelet Count 267 K/mm3 (150-450); RBC Distribution Width CV 12.6 % (11.6-14.6); Red Blood Count 4.06 M/mm3 (4.2-5.4); White Blood Count 7.9 K/mm3 (4.4-11.0)
[2020-04-18 15:41] LABS: ALB/GLOB Ratio 0.8 RATIO (0.9-2.4); AST(SGOT) 17 U/L (15-37); Alanine Aminotransfer ALT/SGPT 27 U/L (13-56); Albumin, Serum 3.3 g/dL (3.2-5.0); Alkaline Phosphatase 118 U/L (45-117); Anion Gap 7 (5-15); BUN 23 mg/dL (7-18); BUN/Creat Ratio 31.2 RATIO (10-20); Calcium,Total 8.9 mg/dL (8.5-10.1); Chloride 109 mmol/L (98-107); Creatinine, Serum 0.74 mg/dL (0.55-1.02); EST Glomerular Filtration Rate 84 mL/min (>60); Est Glom Filt Rate - Afr Amer 102 mL/min (>60); Globulin 3.9 g/dL (2.2-4.2); Glucose 109 mg/dL (74-106); Magnesium 2.4 mg/dL (1.6-2.6); Potassium 3.8 mmol/L (3.5-5.1); Protein, Total 7.2 g/dL (6.4-8.2); Sodium Level 141 mmol/L (136-145)
== END ==
PROVIDERS: PCP Family Medicine; Referring Provider Family Medicine; Visit Provider Family Medicine
DX: M79.89 Other specified soft tissue disorders (principal)
CPT/HCPCS: 36415; 80053; 83735; 85025

== ENCOUNTER → 2020-11-23 11:29 | Outpatient (CLI) | payer MEDICARE, OTHER, SELFPAY ==
[2020-04-04 15:58] VITALS: BMI 24.9
[2020-11-23 11:35] LABS: Lyme Ab Screen Interpretation REF LAB
[2020-11-23 15:15] LABS: Absolute Lymphocyte Count 1.57 X10^3/uL (0.83-4.51); Absolute Neutrophil Count 3.2 X10^3/uL (2.0-7.7); Basophil# 0.05 X10^3/uL; Basophil% 0.9 % (0-1); Eosinophil# 0.11 X10^3/uL; Hematocrit 43.4 % (37-47); Hemoglobin 13.6 g/dL (12.0-15.0); Lymphocyte # 1.57 X10^3/ul (0.83-4.51); Lymphocyte % 28.7 % (19-41); Mean Corp Hgb Conc 31.3 g/dL (32-36); Mean Corpuscular Hgb 32.2 pg (27.0-32.0); Mean Corpuscular Volume 102.8 fL (81-99); Mean Platelet Vol. 10.7 fl (6.2-12.0); Monocyte# 0.54 X10^3/uL; Monocyte% 9.9 % (0-10); NRBC Flagged by Analyzer 0 % (0-5); Neutrophil # 3.19 X10^3/uL (2.7-7.7); Neutrophil % 58.3 % (47-70); Platelet Count 234 K/mm3 (150-450); RBC Distribution Width CV 12.6 % (11.6-14.6); RBC Distribution Width SD 47.4 fl (35.1-43.9); Red Blood Count 4.22 M/mm3 (4.2-5.4); White Blood Count 5.5 K/mm3 (4.4-11.0)
[2020-11-23 15:28] LABS: Erythrocyte Sedimentation Rate 7 mm/hr (0-30)
[2020-11-23 15:45] LABS: AST(SGOT) 20 U/L (15-37); Alanine Aminotransfer ALT/SGPT 33 U/L (13-56); Albumin, Serum 3.4 g/dL (3.2-5.0); Alkaline Phosphatase 58 U/L (45-117); Anion Gap 4 (5-15); BUN 21 mg/dL (7-18); BUN/Creat Ratio 24.1 RATIO (10-20); CRP 4.84 mg/L (0.0-3.0); Calcium,Total 8.6 mg/dL (8.5-10.1); Chloride 111 mmol/L (98-107); Creatinine, Serum 0.87 mg/dL (0.55-1.02); EST Glomerular Filtration Rate 69 mL/min (>60); Est Glom Filt Rate - Afr Amer 84 mL/min (>60); Globulin 3.5 g/dL (2.2-4.2); Glucose 117 mg/dL (74-106); Potassium 3.6 mmol/L (3.5-5.1); Protein, Total 6.9 g/dL (6.4-8.2); Sodium Level 142 mmol/L (136-145); Thyroid Stim Hormone (TSH) 1.65 uIU/mL (0.358-3.74)
[2020-11-23 21:27] LABS: Vitamin D,25 Hydroxy 47.1 ng/mL
[2020-11-25 14:13] LABS: Lyme Scn Total Ab w/Rflx <0.91 ISR (0.00-0.90)
[2020-11-27 07:24] LABS: ANTINUCLEAR ANTIBODIES DIRECT Negative (Negative)
== END ==
PROVIDERS: PCP Family Medicine; Referring Provider Family Medicine; Visit Provider Family Medicine
DX: M13.0 Polyarthritis, unspecified (principal); D72.819 Decreased white blood cell count, unspecified; D64.9 Anemia, unspecified; M81.0 Age-related osteoporosis without current pathological fracture
CPT/HCPCS: 36415; 80053; 82306; 84443; 85025; 85652; 86038; 86140; 86618

== ENCOUNTER → 2020-12-18 | Outpatient (CLI) | payer MEDICARE, OTHER, SELFPAY ==
[2020-04-04 15:58] VITALS: BMI 24.9
== END | disposition home or self-care (01) ==
PROVIDERS: PCP Family Medicine; Referring Provider Family Medicine; Visit Provider Family Medicine
DX: Z20.822 Contact with and (suspected) exposure to COVID-19 (principal)
CPT/HCPCS: 87635; U0005; U0003

== ENCOUNTER → 2020-12-21 17:49 | Outpatient (CLI) | payer MEDICARE, OTHER, SELFPAY | PROVIDERS: PCP Family Medicine; Visit Provider Family Medicine | DX: Z20.822 Contact with and (suspected) exposure to COVID-19 (principal) | CPT/HCPCS: 87635; U0005; U0003 ==

== ENCOUNTER → 2020-12-26 10:37 | Outpatient (CLI) | payer MEDICARE, OTHER, SELFPAY ==
--- NOTE | 2020-12-26 10:40 | RAD_ITS ---
STUDY: X-RAY CHEST REASON FOR EXAM: Female, 65 years old. Possible PNA TECHNIQUE: PA and lateral views of the chest. COMPARISON: Comparison is made with prior study dated 07/30/2019. FINDINGS: Stable mild elevation of the right hemidiaphragm. Stable minimal increased linear markings at the lung bases suggest some mild scarring. There is no demonstrated pleural abnormality. Normal size heart. Normal mediastinum and stanislaw. Normal visualized pulmonary arteries. Normal visualized aortic arch and descending thoracic aorta. Normal visualized thoracic spine. Healed right rib fracture. There is no demonstrated abnormality of the visualized soft tissue structures of the upper abdomen. RAD/Chest PA and Lateral IMPRESSION: No acute abnormality is seen. Electronically Signed: Aidan Viramontes MD at 11:03 EDT , Service support ,
== END ==
PROVIDERS: PCP Family Medicine; Referring Provider Internal Medicine Critical Care Medicine; Visit Provider Internal Medicine Critical Care Medicine
DX: J47.9 Bronchiectasis, uncomplicated (principal); J45.51 Severe persistent asthma with (acute) exacerbation
CPT/HCPCS: 71046

== ENCOUNTER → 2021-01-10 15:44 | Outpatient (CLI) | payer MEDICARE, OTHER, SELFPAY ==
[2021-01-10 17:53] LABS: AST(SGOT) 15 U/L (15-37); Alanine Aminotransfer ALT/SGPT 33 U/L (13-56); Albumin, Serum 3.3 g/dL (3.2-5.0); Alkaline Phosphatase 43 U/L (45-117); Bilirubin, Direct 0.11 mg/dL (0.00-0.30); Globulin 3.9 g/dL (2.2-4.2); Protein, Total 7.2 g/dL (6.4-8.2)
== END ==
PROVIDERS: Dermatology; PCP Family Medicine; Referring Provider Family Medicine; Visit Provider Family Medicine
DX: Z79.899 Other long term (current) drug therapy (principal)
CPT/HCPCS: 36415; 80076

== ENCOUNTER → 2021-03-08 16:37 | Outpatient (CLI) | payer MEDICARE, OTHER, SELFPAY ==
--- NOTE | 2021-03-08 16:39 | RAD_ITS ---
STUDY: X-RAY - RIGHT ELBOW REASON FOR EXAM: Female, 66 years old. PAIN TECHNIQUE: 3 view(s) of the elbow. COMPARISON: None. FINDINGS: Normal visualized humerus, radius and ulna. Normal radiocapitellar and ulnotrochlear articulations. The soft tissue structures are unremarkable. There is no demonstrated fracture. RAD/Elbow min 3 Views IMPRESSION: Normal x-ray examination of the elbow. Electronically Signed: Pranay Hall MD at 18:29 EDT , Service support ,
== END ==
PROVIDERS: PCP Family Medicine; Referring Provider Nurse Practitioner Family; Visit Provider Nurse Practitioner Family
DX: M25.521 Pain in right elbow (principal)
CPT/HCPCS: 73080

== ENCOUNTER → 2021-03-12 10:35 | Outpatient (CLI) | payer MEDICARE, OTHER, SELFPAY ==
--- NOTE | 2021-03-12 10:37 | RAD_ITS ---
STUDY: XR Shoulder Min 2 Views REASON FOR EXAM: Female, 66 years old. PAIN TECHNIQUE: XR Shoulder Min 2 Views COMPARISON: None. FINDINGS: Normal glenohumeral articulation. Normal acromioclavicular joint. Normal acromion. Normal humeral head and visualized proximal humerus. The soft tissue structures are unremarkable. Normal visualized pulmonary apex. RAD/Shoulder min 2 Views IMPRESSION: There are no acute findings of the shoulder. Electronically Signed: Charly Lancaster MD at 15:17 EST , Service support ,
== END ==
PROVIDERS: PCP Family Medicine; Referring Provider Anesthesiology Pain Medicine; Visit Provider Anesthesiology Pain Medicine
DX: M19.011 Primary osteoarthritis, right shoulder (principal)
CPT/HCPCS: 73030

== ENCOUNTER → 2021-04-10 11:40 | Outpatient (CLI) | payer MEDICARE, OTHER, SELFPAY ==
--- NOTE | 2021-04-10 11:44 | RAD_ITS ---
STUDY: X-RAY - LUMBOSACRAL SPINE REASON FOR EXAM: Female, 66 years old. Post laminectomy syndrome. TECHNIQUE: 6 view(s) of the lumbosacral spine were obtained including oblique views and flexion and extension views.. COMPARISON: Comparison is made with prior examination dated 10/14/2017. FINDINGS: Normal lumbar lordosis. There is a levoscoliosis of the lumbar spine. Minimal anterior listhesis of L4 on L5. The patient is status post laminectomy and interpedicular screw and christopher fixation at the L3-S1 level. This is unchanged. There is multi-level degenerative disc disease with multi-level disc space narrowing. Facet joint osteoarthritis. There is degenerative arthrosis of the sacroiliac joint with articular joint space narrowing and spur formation. Normal visualized soft tissue structures. RAD/L/S Spine Comp/w Bending Views IMPRESSION: Status post multilevel laminectomy and fusion as described. There has been no change. Electronically Signed: Aidan Viramontes MD at 12:19 EST , Service support ,
== END ==
PROVIDERS: PCP Family Medicine; Referring Provider Anesthesiology Pain Medicine; Visit Provider Anesthesiology Pain Medicine
DX: M96.1 Postlaminectomy syndrome, not elsewhere classified (principal)
CPT/HCPCS: 72114

== ENCOUNTER 2021-05-25 09:58 | Outpatient (CLI) | payer MEDICARE, OTHER, SELFPAY ==
[2021-05-25 10:38] VITALS: BP 102/60; PULSE 90; RESP 12; TEMP 35.8; O2SAT 95; BMI 24.2
[2021-05-25] MEDS: 0.9% NaCl Peripheral Flush Adult/Peds IV (11:05)
[2021-05-25] MEDS: Zoledronic Acid 5 MG 100 ML 300 MG IV (11:06)
[2021-05-25 11:41] VITALS: BP 95/64; PULSE 87; RESP 16; O2SAT 96
== END 2021-05-25 23:59 | disposition short-term general hospital (02) ==
LOC: MEDOUTP 10:00
PROVIDERS: PCP Family Medicine; Referring Provider Family Medicine; Visit Provider Family Medicine
DX: M81.0 Age-related osteoporosis without current pathological fracture (principal)
CPT/HCPCS: 96365; A4216; J3489

== ENCOUNTER 2021-06-18 09:59 | Emergency (ER) | payer MEDICARE, OTHER, SELFPAY ==
[2021-06-18 09:59] VITALS: BP 105/90; PULSE 98; RESP 16; TEMP 36.2; O2SAT 100; BMI 24.5
[2021-06-18 10:22] VITALS: BP 105/90; PULSE 98; RESP 16; TEMP 36.2; O2SAT 100
--- NOTE | 2021-06-18 10:44 | CT_ITS ---
STUDY: CT ABDOMEN AND PELVIS WITH CONTRAST REASON FOR EXAM: Female, 66 years old. Nausea and vomiting. Elevated white cell count. RADIATION DOSAGE (If Supplied By Facility): CTDIvol = ( 15.08 ) mGy, DLP = ( 620.52 ) mGycm TECHNIQUE: Transaxial images were obtained from the dome of the diaphragm to the symphysis pubis without oral contrast. Oral and amp; IV Gastrografin and amp; 100mL Isovue-300 was administered. Sagittal and coronal images were reconstructed. Individualized dose optimization techniques were used for this CT. COMPARISON: None. FINDINGS: The visualized lung bases are unremarkable. The visualized portions of the heart are within normal limits. There is decreased attenuation of the liver consistent with steatosis. Normal gallbladder and extrahepatic biliary system. Normal spleen. Normal pancreas. Normal bilateral adrenal glands. Normal right kidney. Normal left kidney. There is a small hiatal hernia. Normal small intestine. There are multiple colonic diverticula consistent with diverticulosis. There is non-visualization of the appendix. There is diffuse atherosclerotic calcification of the abdominal aorta, without a demonstrated aneurysm. Normal inferior vena cava. Normal retroperitoneum. Normal urinary bladder. There is absence of the uterus consistent with a prior hysterectomy. There is a small umbilical hernia containing fat. There are diffuse degenerative changes of the visualized lumbar spine. Levoscoliosis. The patient is status post laminectomy and fusion at the L4-L5 and L5-S1 levels. Anterior listhesis of L4 on L5. CT/Abdomen/Pelvis WITH Contrast IMPRESSION: Small umbilical hernia containing fat. Sigmoid diverticulosis. Fatty infiltration of the liver. Electronically Signed: Aidan Viramontes MD at 13:26 EST ,
--- NOTE | 2021-06-18 10:54 | EDS_ITS ---
HPI HPI - GI History of Present Illness Chief Complaint: Nausea/Vomiting/Diarrhea Informant: patient Abdominal Pain/Flank Pain Onset: Yesterday Context: Sudden Onset Timing: Continuous Quality: Stabbing Location: Epigastric and LUQ Worsened by: Nothing Relieved by: Nothing Nausea/Vomiting/Emesis GI Symptom: Positive for Nausea and Vomiting Quality: Negative for Coffee ground and Hematemesis Diarrhea/Melena/Hematochezia GI Symptom: Positive for Diarrhea; Negative for Melena and Hematochezia Associated Symptoms Associated Symptoms: Positive for Dysuria; Negative for Frequency and Hematuria Narrative Narrative: Patient presents with abdominal pain, nausea, vomiting, diarrhea that began last night. Patient states she ate some buffalo chicken dip last night. Patient states that her emesis was stomach contents. Patient states there was some brown emesis. Patient denies any coffee-ground emesis however. Patient denies any hematemesis. Patient denies any diarrhea, melena, or hematochezia. Patient admits to some dysuria. Patient describes her pain as stabbing. Patient states her pain is over the epigastric and left upper quadrant. Patient states nothing makes it better nothing makes it worse. PFSH PFSH Medical History Arthritis Asthma Disease of tonsils and adenoids Hx of fracture of radius Lumbar disc disease Lung nodule Nephrolithiasis Neuropathic pain Scoliosis of thoracolumbar spine Home Medications hydroxyzine HCl 25 mg PO Q8 PRN 08/21/16 [History Last Taken 06/26/19] valacyclovir 500 mg PO DAILY 08/21/16 [History Last Taken 06/27/19] baclofen 10 - 20 mg PO QHS 05/25/17 [History Last Taken 06/26/19] oxycodone 5 mg PO Q8H PRN 05/25/17 [History Last Taken 06/26/19] potassium citrate 10 meq PO BID 05/25/17 [History Last Taken 06/27/19] gabapentin 600 mg PO TID 03/04/18 [History Last Taken 06/26/19] ipratropium 20 mcg-albuterol 100 mcg/actuation mist for inhalation 2 puff INHALATION Q6H PRN 05/01/18 [History Last Taken Unknown] magnesium 200 mg tablet 400 mg PO DAILY tab 05/01/18 [History Last Taken 06/27/19] cyclosporine 1 drp EACH EYE BID 04/06/19 [History Last Taken 06/27/19] esomeprazole magnesium 20 mg PO DAILY 04/06/19 [History Last Taken 06/27/19] duloxetine 60 mg PO DAILY 04/07/19 [History Last Taken 06/27/19] vitamin K2 40 mcg tablet 100 mcg PO DAILY 04/26/19 [History Last Taken 06/27/19] denosumab 60 mg SQ .COMPLEX 06/27/19 [History Last Taken Unknown] acetaminophen 650 mg PO Q6H PRN PRN tab 06/30/19 [Rx Last Taken Unknown] fluticasone furoate 100 mcg-vilanterol 25 mcg/dose inhalation powder 1 inh INHALATION Q24H #3 device 12/12/20 [Rx Last Taken Unknown] acetazolamide 250 mg tablet 250 mg PO DAILY 12/26/20 [History Last Taken Unknown] cod liver oil 1 cap PO DAILY 12/26/20 [History Last Taken Unknown] horse chestnut 300 mg capsule 300 mg PO DAILY cap 12/26/20 [History Last Taken Unknown] albuterol sulfate 90 mcg/actuation aerosol inhaler 2 puff INHALATION Q6H PRN PRN #3 device 01/17/21 [Rx Last Taken Unknown] azithromycin 250 mg tablet 250 mg PO QMWF #40 tab 01/17/21 [Rx Last Taken Unknown] ipratropium bromide 42 mcg (0.06 %) nasal spray 2 spray INTRANASAL DAILY #3 bottle 01/22/21 [Rx Last Taken Unknown] Fluad Quad [id number](65yr up)(PF) 60 mcg (15 mcg x 4)/0.5mL IM syringe 60 mcg IM ONCE #0.5 ml NS 01/29/21 [Clinic Last Taken Unknown] cholecalciferol (vitamin D3) 50 mcg (2,000 unit) capsule 50 mcg PO DAILY 03/19/21 [History Last Taken Unknown] flaxseed oil 1,000 mg capsule 1,000 mg PO DAILY 03/19/21 [History Last Taken Unknown] furosemide 20 mg tablet 20 mg PO DAILY tab 03/19/21 [History Last Taken Unknown] lidocaine 5 % topical patch 1 patch TOPICAL DAILY 03/19/21 [History Last Taken Unknown] apixaban [Eliquis] 5 mg PO BID 06/18/21 [History Last Taken Unknown] ondansetron 4 mg PO Q8H PRN PRN #10 tab 06/18/21 [Rx Last Taken Unknown] terbinafine HCl 250 mg PO DAILY 06/18/21 [History Last Taken Unknown] Allergy/AdvReac Type Severity Reaction Status Date / Time bacitracin AdvReac Itching Verified 06/18/21 10:01 chlorpheniramine AdvReac Other Verified 06/18/21 10:01 [From Matthew Alex] loratadine [From Claritin-D] AdvReac Other Verified 06/18/21 10:01 morphine AdvReac Nausea Verified 06/18/21 10:01 phenylephrine AdvReac Other Verified 06/18/21 10:01 [From Matthew Alex] pseudoephedrine AdvReac Other Verified 06/18/21 10:01 [From Claritin-D] tramadol AdvReac Vomiting Verified 06/18/21 10:01 novacaine AdvReac Unknown Uncoded 06/18/21 10:01 Family History Mother Cancer Lung Sister Cancer Lung Asthma Grandfather CAD (coronary artery disease) Grandmother Arthritis Father Hypertension Surgical History Bladder sling clipped H/O colonoscopy H/O foot surgery history bladder sling History of back surgery History of hernia repair History of hysterectomy History of tonsillectomy history removal ectopic Social History household members: spouse housing: house Smoking Status: Never smoker second hand exposure: Yes alcohol intake: never substance use type: does not use ROS ROS ED Constitutional Constitutional ED: Denies chills or fever(s) Eyes Eyes: Denies blurry vision or change in vision ENT ENT ED: Denies rhinorrhea or sore throat Cardiovascular Cardiovascular: Denies chest pain or palpitations Respiratory/Chest Respiratory/Chest: Denies cough or dyspnea Gastrointestinal Gastrointestinal: Reports abdominal pain, diarrhea, nausea and vomiting Genitourinary Genitourinary ED: Reports dysuria; Denies hematuria Musculoskeletal Musculoskeletal: Reports back pain; Denies neck pain Integumentary Denies abscess or rash Neurologic Neurologic: Denies headache(s) or weakness Allergic/Immunologic Allergic/Immunologic ED: Denies mouth swelling or urticaria EXAM Physical Exam Const Vital Signs: 06/18/21 09:59 06/18/21 10:22 06/18/21 11:01 Temperature 97.2 F L 97.2 F L Temperature Source Temporal Temporal Pulse Rate 98 98 72 Respiratory Rate 16 16 16 Blood Pressure 105/90 H 105/90 H 111/71 Blood Pressure Mean 95 95 84 Pulse Ox 100 100 100 Oxygen Delivery Method Room Air Room Air Room Air 06/18/21 14:00 Temperature Temperature Source Pulse Rate Respiratory Rate Blood Pressure 107/62 Blood Pressure Mean 77 Pulse Ox 97 Oxygen Delivery Method Room Air Positive well nourished and well developed General Appearance ED: well developed HEENT Reports moist mucous membranes Neck supple and no JVD Resp normal respiratory effort and clear to auscultation bilaterally Cardio regular rate, regular rhythm and no murmurs GI normal to inspection, nondistended, normoactive bowel sounds and non-distended Palpation: soft and tender epigastric and LUQ; Negative for guarding or rebound tenderness present Extremity normal to inspection General Extremety ED: Negative for edema or tenderness General Extremity: Negative for edema Neuro oriented x3, CN's II-XII intact bilaterally and no sensory deficits noted Sensorium / Orientation: alert Motor Exam: strength 5/5 throughout Psych mental status grossly normal Skin no rashes or lesions noted MDM MDM MDM Narrative Medical decision making narrative: Patient was given IV fluids, Zofran, Dilaudid. CBC shows a slight leukocytosis of 11.5. Hemoglobin was 16.7 and hematocrit was 49.6. Comprehensive metabolic profile was obtained. BUN was slightly elevated at 28. Total bilirubin was slightly elevated at 1.6. The remainder was essentially within normal limits. Urinalysis does not show any evidence of urinary tract infection. CT scan of the abdomen and pelvis was obtained. There is a small umbilical hernia containing fat only. There is some fatty infiltration of the liver. There is no acute process. This was inte rpreted by the radiologist and reviewed by myself. Patient is feeling better on reevaluation. Patient was given a prescription for Zofran. Patient was instructed to follow-up with her primary care physician in 5 to 7 days. Patient understood and was agreeable with the plan. All questions were answered. Lab Data Attestation: I reviewed the patient's lab results. Labs: Laboratory Results - last 24 hr 06/18/21 06/18/21 06/18/21 10:31 10:31 13:45 WBC 11.5 H RBC 4.99 Hgb 16.7 H Hct 49.6 H MCV 99.4 H MCH 33.5 H MCHC 33.7 RDW Std Deviation 48.2 H RDW Coeff of Tarun 13.1 Plt Count 280 MPV 10.4 Immature Gran % (Auto) 0.400 Neut % (Auto) 92.5 H Lymph % (Auto) 3.1 L [place] % (Auto) 3.6 Eos % (Auto) 0.1 Baso % (Auto) 0.3 Absolute Neuts (auto) 10.7 H Absolute Lymphs (auto) 0.36 L Nucleated RBC % 0 Sodium 141 Potassium 3.3 L Chloride 112 H Carbon Dioxide 22.0 Anion Gap 7 BUN 28 H Creatinine 0.98 Estim Creat Clear Calc 48.10 Est GFR (MDRD) Af Amer 73 Est GFR (MDRD) Non-Af 60 BUN/Creatinine Ratio 28.5 H Glucose 166 H Calcium 9.2 Total Bilirubin 1.60 H AST 16 ALT 28 Alkaline Phosphatase 66 Total Protein 8.0 Albumin 3.8 Globulin 4.2 Albumin/Globulin Ratio 0.9 Lipase 52 L Urine Color Yellow Urine Clarity Clear Urine pH 7.0 Ur Specific [place] 1.005 Urine Protein 15 H Urine Glucose (UA) Normal Urine Ketones Negative Urine Occult Blood Negative Urine Nitrite Negative Urine Bilirubin Negative Urine Urobilinogen Normal Ur Leukocyte Esterase Negative Urine RBC 0 SEEN Urine WBC 0 SEEN Ur Squamous Epith Cells 0 SEEN Urine Bacteria 0 SEEN Urine Mucus 0 SEEN Radiography Diagnostic Testing: Clinical Impression(s) from Imaging Studies Abdomen/Pelvis CT 06/18/21 10:44 IMPRESSION: Small umbilical hernia containing fat. Sigmoid diverticulosis. Fatty infiltration of the liver. Electronically Signed: Aidan Viramontes MD at 13:26 EST , Discharge Plan Triage Chief Complaint: Nausea/Vomiting/Diarrhea ED Provider: Julian Bryant Dx/Rx/DC Orders Clinical Impression: Nausea vomiting and diarrhea Instructions: ED Vomiting and Diarrhea ... Prescriptions: New ondansetron [ondansetron] 4 MG tablet 4 mg PO Q8H PRN PRN (Reason: Nausea) Qty: 10 RF: 0 No Action magnesium 200 mg tablet 400 mg PO DAILY RF: 0 Combivent Respimat 20-100 mcg/actuation mist 2 puff INHALATION Q6H PRN (Reason: Sob &/Or Wheezing) RF: 0 vitamin K2 40 mcg tablet 100 mcg PO DAILY RF: 0 horse chestnut 300 mg capsule 300 mg PO DAILY RF: 0 cod liver oil Capsule 1 cap PO DAILY RF: 0 acetazolamide 250 mg tablet 250 mg PO DAILY RF: 0 Fluad Quad 2020-(65y up)(PF) 60 mcg (15 mcg x 4)/0.5 mL syringe 60 mcg IM ONCE Qty: 0.5 RF: 0 cholecalciferol (vitamin D3) 50 mcg (2,000 unit) capsule 50 mcg PO DAILY RF: 0 lidocaine 5 % adhesive patch,medicated 1 patch topical DAILY RF: 0 flaxseed oil 1,000 mg capsule 1,000 mg PO DAILY RF: 0 furosemide 20 mg tablet 20 mg PO DAILY RF: 0 valacyclovir 500 MG tablet 500 mg PO DAILY RF: 0 hydroxyzine HCl 25 MG tablet 25 mg PO Q8 PRN (Reason: Anxiety) RF: 0 baclofen 20 MG tablet 10 - 20 mg PO QHS RF: 0 potassium citrate 5 MEQ tablet extended release 10 meq PO BID RF: 0 oxycodone 5 MG tablet 5 mg PO Q8H PRN (Reason: pain) RF: 0 gabapentin 600 MG tablet extended release 24 hr 600 mg PO TID RF: 0 esomeprazole magnesium 20 MG capsule 20 mg PO DAILY RF: 0 cyclosporine 1 DROP dropperette 1 drp EACH EYE BID RF: 0 duloxetine 60 MG capsule 60 mg PO DAILY RF: 0 denosumab 60 MG/ML syringe 60 mg SQ .COMPLEX RF: 0 acetaminophen 325 MG tablet 650 mg PO Q6H PRN PRN (Reason: Pain Score 1-10/Temp > 100.7 F) RF: 0 terbinafine HCl 250 mg Tablet 250 mg PO DAILY RF: 0 Eliquis 5 mg Tablet 5 mg PO BID RF: 0 Breo Ellipta 100-25 mcg/dose blister with device 1 inh inhalation Q24H Qty: 3 RF: 3 azithromycin 250 mg tablet 250 mg PO QMWF Qty: 40 RF: 2 albuterol sulfate 90 mcg/actuation HFA aerosol inhaler 2 puff INHALATION Q6H PRN PRN (Reason: Sob &/Or Wheezing) Qty: 3 RF: 1 ipratropium bromide 42 mcg (0.06 %) spray,non-aerosol 2 spray INTRANASAL DAILY Qty: 3 RF: 2 Primary Care Provider: Julian Asher Referrals: Julian Asher MD [Primary Care Provider] - 3-5 Days Disposition Disposition: Home, Self Care
[2021-06-18] MEDS: 0.9% Normal Saline 1,000 ML 1000 ML IV (10:58)
[2021-06-18] MEDS: HYDROmorphone 1 MG/ML Syringe 0.5 MG IV (10:58)
[2021-06-18] MEDS: Ondansetron 4 MG/2 ML Vial IV (10:59)
[2021-06-18 11:01] VITALS: BP 111/71; PULSE 72; RESP 16; O2SAT 100
[2021-06-18 11:13] LABS: Absolute Lymphocyte Count 0.36 X10^3/uL (0.83-4.51); Absolute Neutrophil Count 10.7 X10^3/uL (2.0-7.7); Basophil# 0.04 X10^3/uL; Basophil% 0.3 % (0-1); Eosinophil# 0.01 X10^3/uL; Eosinophils% 0.1 % (0-5); Hematocrit 49.6 % (37-47); Hemoglobin 16.7 g/dL (12.0-15.0); Lymphocyte # 0.36 X10^3/ul (0.83-4.51); Lymphocyte % 3.1 % (19-41); Mean Corp Hgb Conc 33.7 g/dL (32-36); Mean Corpuscular Hgb 33.5 pg (27.0-32.0); Mean Corpuscular Volume 99.4 fL (81-99); Mean Platelet Vol. 10.4 fl (6.2-12.0); Monocyte# 0.41 X10^3/uL; Monocyte% 3.6 % (0-10); NRBC Flagged by Analyzer 0 % (0-5); Neutrophil # 10.66 X10^3/uL (2.7-7.7); Neutrophil % 92.5 % (47-70); POSITIVE DIFFERENTIAL YES; Platelet Count 280 K/mm3 (150-450); RBC Distribution Width CV 13.1 % (11.6-14.6); RBC Distribution Width SD 48.2 fl (35.1-43.9); Red Blood Count 4.99 M/mm3 (4.2-5.4); White Blood Count 11.5 K/mm3 (4.4-11.0)
[2021-06-18 11:25] LABS: ALB/GLOB Ratio 0.9 RATIO (0.9-2.4); AST(SGOT) 16 U/L (15-37); Alanine Aminotransfer ALT/SGPT 28 U/L (13-56); Albumin, Serum 3.8 g/dL (3.2-5.0); Alkaline Phosphatase 66 U/L (45-117); Anion Gap 7 (5-15); BUN 28 mg/dL (7-18); BUN/Creat Ratio 28.5 RATIO (10-20); Calcium,Total 9.2 mg/dL (8.5-10.1); Chloride 112 mmol/L (98-107); Creatinine, Serum 0.98 mg/dL (0.55-1.02); EST Glomerular Filtration Rate 60 mL/min (>60); Est Glom Filt Rate - Afr Amer 73 mL/min (>60); Globulin 4.2 g/dL (2.2-4.2); Glucose 166 mg/dL (74-106); Lipase 52 U/L (73-393); Potassium 3.3 mmol/L (3.5-5.1); Sodium Level 141 mmol/L (136-145)
[2021-06-18 12:49] LABS: Differential Indicated SCAN CRITERIA MET
[2021-06-18 13:47] LABS: Bacteria 0 SEEN /hpf (None Seen); Mucous, Urine 0 SEEN /hpf (<or=2+); Red Blood Cells-Urine 0 SEEN /hpf (0-5); Squamous Epithelial Cells - UA 0 SEEN /hpf (5-10); White Blood Cells 0 SEEN /hpf (0-5)
[2021-06-18 13:49] LABS: Color, Urine Yellow (Yellow); Glucose, Dipstick Normal (Normal); Ketone-Dipstick Negative (Negative); Leukocyte Esterase-Dipstick Negative /ul (Negative); Nitrite-Dipstick Negative (Negative); Occult Blood-Urine Negative /ul (Negative); Protein-Dipstick 15 mg/dl (Negative); Specific Gravity, Urine 1.005 (1.002-1.030); Urine Bilirubin Dipstick Negative (Negative); Urine Clarity Clear (Clear); Urine Urobilinogen Normal (Normal)
[2021-06-18 14:00] VITALS: BP 107/62; O2SAT 97
== END 2021-06-18 15:03 | disposition home or self-care (01) ==
PROVIDERS: Emergency Provider Emergency Medicine; PCP Family Medicine; Visit Provider Emergency Medicine
DX: R11.2 Nausea with vomiting, unspecified (principal); R19.7 Diarrhea, unspecified; D72.829 Elevated white blood cell count, unspecified; K42.9 Umbilical hernia without obstruction or gangrene; K76.0 Fatty (change of) liver, not elsewhere classified; R10.13 Epigastric pain; R10.12 Left upper quadrant pain; R30.0 Dysuria; J45.909 Unspecified asthma, uncomplicated; M19.90 Unspecified osteoarthritis, unspecified site; Z79.899 Other long term (current) drug therapy; Z79.01 Long term (current) use of anticoagulants
CPT/HCPCS: 74177; 80053; 81001; 83690; 85025; 96361; 96374; 96375; 99285; J7030; Q9967; A4216; J2405

== ENCOUNTER 2021-08-21 10:52 | Outpatient (CLI) | payer MEDICARE, OTHER, SELFPAY ==
--- NOTE | 2021-08-21 10:57 | MRI_ITS ---
STUDY: MRI BRAIN WITH AND WITHOUT CONTRAST REASON FOR EXAM: Female, 66 years old. DIZZINESS, ASYMETRIC HEARING LOSS TECHNIQUE: Standardized multiplanar fat and water weighted pulse sequences were obtained. IV 12ML Dotarem was administered for the contrast portion of the examination. COMPARISON: None. FINDINGS: Subtle scattered areas of T2 prolongation visualized in the periventricular and subcortical white matter, subtle granular T2 prolongation visualized in the right parietal lobe. No evidence of parenchymal lung masses seen. No evidence of parenchymal hemorrhage or contusion. No evidence of intra or extra-axial fluid collection is seen. The ventricles and sulci are unremarkable in size for the patient''s age. Normal bilateral basal ganglia. Normal thalami. Normal flow voids within the major intracranial circulation suggesting patency by spin echo criteria. Normal venous enhancement. There is no enhancing intra-axial or extra-axial abnormality. Normal sella turcica, pituitary gland, infundibular stalk, optic chiasm and hypothalamus. Normal tectal plate and pineal gland. Normal midbrain, madan and medulla. Normal cerebellum. Normal basal cisterns. Normal bilateral temporal bones. Normal bilateral internal auditory canals. No demonstrated orbital abnormality, within the constraints of a routine brain study. Normal visualized paranasal sinuses. Normal calvarium and skull base. Normal visualized soft tissue structures. Normal visualized upper cervical spine. MRI/Brain W/WO Contrast IMPRESSION: Unremarkable unenhanced and enhanced MRI of the brain. Electronically Signed: Brendan Colindres MD at 14:45 EDT ,
[2021-08-21 11:26] LABS: CREATININE FINGERSTICK 0.7 mg/dL (0.55-1.02); EGFR FINGERSTICK > 60.0000 mL/min (>60)
== END 2021-08-21 23:59 | disposition home or self-care (01) ==
LOC: MRI 10:53
PROVIDERS: PCP Family Medicine; Referring Provider Otolaryngology; Visit Provider Otolaryngology
DX: R42 Dizziness and giddiness (principal); H91.90 Unspecified hearing loss, unspecified ear
CPT/HCPCS: 70553; A9575

== ENCOUNTER → 2021-09-28 | Outpatient (CLI) | payer MEDICARE, OTHER, SELFPAY ==
[2021-09-28 12:31] LABS: Absolute Lymphocyte Count 1.59 X10^3/uL (0.83-4.51); Absolute Neutrophil Count 2.5 X10^3/uL (2.0-7.7); Basophil# 0.07 X10^3/uL; Basophil% 1.5 % (0-1); Eosinophils% 2.1 % (0-5); Hemoglobin 13.7 g/dL (12.0-15.0); Lymphocyte # 1.59 X10^3/ul (0.83-4.51); Lymphocyte % 33.2 % (19-41); Mean Corp Hgb Conc 32.6 g/dL (32-36); Mean Corpuscular Hgb 33.3 pg (27.0-32.0); Mean Corpuscular Volume 101.9 fL (81-99); Mean Platelet Vol. 11.4 fl (6.2-12.0); Monocyte# 0.55 X10^3/uL; Monocyte% 11.5 % (0-10); NRBC Flagged by Analyzer 0 % (0-5); Neutrophil # 2.47 X10^3/uL (2.7-7.7); Neutrophil % 51.5 % (47-70); Platelet Count 225 K/mm3 (150-450); RBC Distribution Width CV 13.2 % (11.6-14.6); RBC Distribution Width SD 50.8 fl (35.1-43.9); Red Blood Count 4.12 M/mm3 (4.2-5.4); White Blood Count 4.8 K/mm3 (4.4-11.0)
[2021-09-28 12:49] LABS: ALB/GLOB Ratio 1.1 RATIO (0.9-2.4); AST(SGOT) 20 U/L (15-37); Alanine Aminotransfer ALT/SGPT 29 U/L (13-56); Albumin, Serum 3.4 g/dL (3.2-5.0); Alkaline Phosphatase 40 U/L (45-117); Anion Gap 5 (5-15); BUN 20 mg/dL (7-18); BUN/Creat Ratio 24.3 RATIO (10-20); Calcium,Total 8.6 mg/dL (8.5-10.1); Chloride 110 mmol/L (98-107); Creatinine, Serum 0.82 mg/dL (0.55-1.02); EST Glomerular Filtration Rate 74 mL/min (>60); Est Glom Filt Rate - Afr Amer 89 mL/min (>60); Globulin 3.2 g/dL (2.2-4.2); Glucose 125 mg/dL (74-106); Magnesium 2.2 mg/dL (1.6-2.6); Potassium 3.6 mmol/L (3.5-5.1); Protein, Total 6.6 g/dL (6.4-8.2); Sodium Level 140 mmol/L (136-145)
== END | disposition home or self-care (01) ==
LOC: MFPLAB 10:56
PROVIDERS: PCP Family Medicine; Referring Provider Family Medicine; Visit Provider Family Medicine
DX: R53.81 Other malaise (principal)
CPT/HCPCS: 36415; 80053; 83735; 85025

== ENCOUNTER 2021-10-31 23:52 | Emergency (ER) | payer MEDICARE, OTHER, SELFPAY ==
[2021-10-31 23:53] VITALS: BP 138/81; PULSE 86; RESP 18; TEMP 36.5; O2SAT 100; BMI 23.5
--- NOTE | 2021-11-01 00:15 | EX.ED.DYSGE1 ---
HPI History of Present Illness Chief Complaint: Wound Informant: patient Narrative Narrative: 66-year-old female on Eliquis states that tonight she noticed a swelling on her left forearm. She denies any known direct trauma. She states that she is going to run out of her Eliquis before her next home delivery. [facility] Medical History Arthritis Asthma Disease of tonsils and adenoids Hx of fracture of radius Lumbar disc disease Lung nodule Nephrolithiasis Neuropathic pain Scoliosis of thoracolumbar spine Home Medications hydroxyzine HCl 25 mg tablet 25 mg PO Q8 PRN Anxiety 08/21/16 [History Last Taken 06/26/19] valacyclovir 500 mg tablet 500 mg PO DAILY prophylaxis 08/21/16 [History Last Taken 06/27/19] baclofen 20 mg tablet 10 - 20 mg PO QHS cramping 05/25/17 [History Last Taken 06/26/19] oxycodone 5 mg tablet 5 mg PO Q8H PRN pain 05/25/17 [History Last Taken 06/26/19] potassium citrate 5 mEq (540 mg) tablet,extended release 10 meq PO BID supplement 05/25/17 [History Last Taken 06/27/19] gabapentin 600 mg tablet,extended release 24 hr 600 mg PO TID back pain 03/04/18 [History Last Taken 06/26/19] ipratropium 20 mcg-albuterol 100 mcg/actuation mist for inhalation (Combivent Respimat) 2 puff inhalation Q6H PRN Sob &/Or Wheezing 05/01/18 [History Last Taken Unknown] magnesium 200 mg tablet 400 mg PO DAILY supplement 05/01/18 [History Last Taken 06/27/19] cyclosporine 0.05 % eye drops in a dropperette 1 drp EACH EYE BID dry eyes 04/06/19 [History Last Taken 06/27/19] esomeprazole magnesium 20 mg capsule,delayed release 20 mg PO DAILY GERD 04/06/19 [History Last Taken 06/27/19] duloxetine 60 mg capsule,delayed release 60 mg PO DAILY depression 04/07/19 [History Last Taken 06/27/19] vitamin K2 40 mcg tablet 100 mcg PO DAILY supplement 04/26/19 [History Last Taken 06/27/19] denosumab 60 mg/mL subcutaneous syringe 60 mg SQ .COMPLEX osteoporosis 06/27/19 [History Last Taken Unknown] acetaminophen 325 mg tablet 650 mg PO Q6H PRN PRN Pain Score 1-10/Temp > 100.7 F 06/30/19 [Rx Last Taken Unknown] fluticasone furoate 100 mcg-vilanterol 25 mcg/dose inhalation powder (Breo Ellipta) 1 inh inhalation Q24H #3 device 12/12/20 [Rx Last Taken Unknown] acetazolamide 250 mg tablet 250 mg PO DAILY 12/26/20 [History Last Taken Unknown] cod liver oil 1 cap PO DAILY 12/26/20 [History Last Taken Unknown] horse chestnut 300 mg capsule 300 mg PO DAILY 12/26/20 [History Last Taken Unknown] albuterol sulfate 90 mcg/actuation aerosol inhaler 2 puff inhalation Q6H PRN PRN Sob &/Or Wheezing #3 device 01/17/21 [Rx Last Taken Unknown] azithromycin 250 mg tablet 250 mg PO QMWF #40 tabs 01/17/21 [Rx Last Taken Unknown] ipratropium bromide 42 mcg (0.06 %) nasal spray 2 spray intranasal DAILY sob #3 BOTTLES 01/22/21 [Rx Last Taken Unknown] Fluad Quad [id number](65yr up)(PF) 60 mcg (15 mcg x 4)/0.5mL IM syringe (flu vac 2020 [id number](PF)) 60 mcg IM ONCE #0.5 mL 01/29/21 [Clinic Last Taken Unknown] cholecalciferol (vitamin D3) 50 mcg (2,000 unit) capsule 50 mcg PO DAILY 03/19/21 [History Last Taken Unknown] flaxseed oil 1,000 mg capsule 1,000 mg PO DAILY 03/19/21 [History Last Taken Unknown] furosemide 20 mg tablet 20 mg PO DAILY 03/19/21 [History Last Taken Unknown] lidocaine 5 % topical patch 1 patch topical DAILY 03/19/21 [History Last Taken Unknown] apixaban 5 mg tablet (Eliquis) 5 mg PO BID 06/18/21 [History Last Taken Unknown] ondansetron 4 mg disintegrating tablet 4 mg PO Q8H PRN PRN Nausea #10 tabs 06/18/21 [Rx Last Taken Unknown] terbinafine HCl 250 mg tablet 250 mg PO DAILY 06/18/21 [History Last Taken Unknown] apixaban 5 mg tablet (Eliquis) 5 mg PO BID #14 tabs 11/01/21 [Rx Last Taken Unknown] Allergy/AdvReac Type Severity Reaction Status Date / Time bacitracin AdvReac Itching Verified 10/31/21 23:56 chlorpheniramine AdvReac Other Verified 10/31/21 23:56 [From Matthew Cold] loratadine [From Claritin-D] AdvReac Other Verified 10/31/21 23:56 morphine AdvReac Nausea Verified 10/31/21 23:56 phenylephrine AdvReac Other Verified 10/31/21 23:56 [From Dristan Cold] pseudoephedrine AdvReac Other Verified 10/31/21 23:56 [From Claritin-D] tramadol AdvReac Vomiting Verified 10/31/21 23:56 novacaine AdvReac Unknown Uncoded 10/31/21 23:56 Family History Mother Cancer Lung Sister Cancer Lung Asthma Grandfather CAD (coronary artery disease) Grandmother Arthritis Father Hypertension Surgical History Bladder sling clipped H/O colonoscopy H/O foot surgery history bladder sling History of back surgery History of hernia repair History of hysterectomy History of tonsillectomy history removal ectopic Social History household members: spouse housing: house Smoking Status: Never smoker second hand exposure: Yes alcohol intake: never substance use type: does not use ROS ROS ED Constitutional Constitutional ED: Denies chills or weight loss Eyes Eyes: Denies change in vision or diplopia ENT ENT ED: Denies ear pain, rhinorrhea or sore throat Cardiovascular Cardiovascular: Denies chest pain, orthopnea, palpitations or racing heartbeat Respiratory/Chest Respiratory/Chest: Denies cough, dyspnea or orthopnea Gastrointestinal Gastrointestinal: Denies abdominal pain, diarrhea, nausea or vomiting Genitourinary Genitourinary ED: Denies dysuria, hematuria or urinary frequency Musculoskeletal Musculoskeletal: Denies arthralgias or myalgias Integumentary Reports other Details: Easy bruising ; Denies abscess or rash Neurologic Neurologic: Denies headache(s) or weakness Psychiatric Psychiatric: Denies anxiety, depression, suicidal ideation or suicidal thoughts Endocrine Endocrinology: Denies polydipsia, polyphagia or polyuria Allergic/Immunologic Allergic/Immunologic ED: Denies mouth swelling, tongue swelling or urticaria EXAM Physical Exam Const Vital Signs: 10/31/21 23:53 Temperature 97.7 F L Temperature Source Temporal Pulse Rate 86 Respiratory Rate 18 Blood Pressure 138/81 H Blood Pressure Mean 100 Pulse Ox 100 Oxygen Delivery Method Room Air Positive well nourished and well developed General Appearance ED: well developed HEENT Reports normocephalic, head/scalp atraumatic and moist mucous membranes Eyes PERRL and EOMs intact bilaterally Neck no lymphadenopathy, supple and no JVD Resp normal respiratory effort and clear to auscultation bilaterally Cardio regular rate, regular rhythm and no murmurs GI normal to inspection, nondistended, normoactive bowel sounds and non-tender Palpation: soft Back/Spine no CVA tenderness and normal ROM Extremity Extremity Narrative: There is a hematoma along the posterior lateral aspect of the left forearm. Otherwise exam is negative General Extremety ED: Negative for edema General Extremity: Negative for edema Neuro oriented x3 and CN's II-XII intact bilaterally Sensorium / Orientation: alert Motor Exam: strength 5/5 throughout Psych mental status grossly normal Mood & Affect: Negative for depressed or tearful Skin no rashes or lesions noted and no wounds MDM MDM MDM Narrative Medical decision making narrative: Justo wrap will be applied. I can write for a few more days of Eliquis to bridge her until her delivery is supplied Discharge Plan Triage Chief Complaint: Wound ED Provider: Ashish Traore Dx/Rx/DC Orders Clinical Impression: Spontaneous hematoma of forearm Instructions: ED Hematoma Prescriptions: New Eliquis 5 mg tablet 5 mg PO BID Qty: 14 0RF No Action magnesium 200 mg tablet 400 mg PO DAILY Combivent Respimat 20-100 mcg/actuation mist 2 puff INHALATION Q6H PRN (Reason: Sob &/Or Wheezing) vitamin K2 40 mcg tablet 100 mcg PO DAILY horse chestnut 300 mg capsule 300 mg PO DAILY cod liver oil Capsule 1 cap PO DAILY acetazolamide 250 mg tablet 250 mg PO DAILY Fluad Quad (65y up)(PF) 60 mcg (15 mcg x 4)/0.5 mL syringe 60 mcg IM ONCE Qty: 0.5 0RF cholecalciferol (vitamin D3) 50 mcg (2,000 unit) capsule 50 mcg PO DAILY lidocaine 5 % adhesive patch,medicated 1 patch topical DAILY flaxseed oil 1,000 mg capsule 1,000 mg PO DAILY Rx Instructions: administer with a meal furosemide 20 mg tablet 20 mg PO DAILY valacyclovir 500 MG tablet 500 mg PO DAILY Label Comments: give for outbreak hydroxyzine HCl 25 MG tablet 25 mg PO Q8 PRN (Reason: Anxiety) Label Comments: anziety baclofen 20 MG tablet 10 - 20 mg PO QHS potassium citrate 5 MEQ tablet extended release 10 meq PO BID oxycodone 5 MG tablet 5 mg PO Q8H PRN (Reason: pain) gabapentin 600 MG tablet extended release 24 hr 600 mg PO TID esomeprazole magnesium 20 MG capsule 20 mg PO DAILY cyclosporine 1 DROP dropperette 1 drp EACH EYE BID duloxetine 60 MG capsule 60 mg PO DAILY denosumab 60 MG/ML syringe 60 mg SQ .COMPLEX Rx Instructions: q6 months acetaminophen 325 MG tablet 650 mg PO Q6H PRN PRN (Reason: Pain Score 1-10/Temp > 100.7 F) 0RF terbinafine HCl 250 mg Tablet 250 mg PO DAILY Eliquis 5 mg Tablet 5 mg PO BID ondansetron [ondansetron] 4 MG tablet 4 mg PO Q8H PRN PRN (Reason: Nausea) Qty: 10 0RF Breo Ellipta 100-25 mcg/dose blister with device 1 inh inhalation Q24H Qty: 3 3RF Rx Instructions: after inhalation, rinse mouth with water and spit out; do not swallow azithromycin 250 mg tablet 250 mg PO QMWF Qty: 40 2RF Rx Instructions: Take one tablet Friday, Friday and Friday albuterol sulfate 90 mcg/actuation HFA aerosol inhaler 2 puff INHALATION Q6H PRN PRN (Reason: Sob &/Or Wheezing) Qty: 3 1RF ipratropium bromide 42 mcg (0.06 %) spray,non-aerosol 2 spray INTRANASAL DAILY Qty: 3 2RF Primary Care Provider: Julian Asher Referrals: Julian Asher MD [Primary Care Provider] - Disposition Disposition: Home, Self Care
[2021-11-01 00:28] VITALS: RESP 17
== END 2021-11-01 00:33 | disposition home or self-care (01) ==
LOC: ED 11-01 00:28
PROVIDERS: Emergency Provider Emergency Medicine; PCP Family Medicine; Visit Provider Emergency Medicine
DX: S50.12XA Contusion of left forearm, initial encounter (principal); M79.89 Other specified soft tissue disorders; X58.XXXA Exposure to other specified factors, initial encounter; J45.909 Unspecified asthma, uncomplicated; F41.9 Anxiety disorder, unspecified; Z79.01 Long term (current) use of anticoagulants; Z79.899 Other long term (current) drug therapy
CPT/HCPCS: 90471; 99284

== ENCOUNTER 2021-11-12 14:05 | Outpatient (CLI) | payer MEDICARE, OTHER, SELFPAY ==
[2021-11-12 14:48] LABS: Hematocrit 40.5 % (37-47); Hemoglobin 13.1 g/dL (12.0-15.0); Mean Corp Hgb Conc 32.3 g/dL (32-36); Mean Corpuscular Hgb 33.4 pg (27.0-32.0); Mean Corpuscular Volume 103.3 fL (81-99); Mean Platelet Vol. 10.5 fl (6.2-12.0); Platelet Count 246 K/mm3 (150-450); RBC Distribution Width SD 49.4 fl (35.1-43.9); Red Blood Count 3.92 M/mm3 (4.2-5.4); White Blood Count 4.6 K/mm3 (4.4-11.0)
[2021-11-12 15:29] LABS: ALB/GLOB Ratio 1.1 RATIO (0.9-2.4); AST(SGOT) 21 U/L (15-37); Alanine Aminotransfer ALT/SGPT 26 U/L (13-56); Albumin, Serum 3.4 g/dL (3.2-5.0); Alkaline Phosphatase 42 U/L (45-117); Anion Gap 8 (5-15); BUN 12 mg/dL (7-18); BUN/Creat Ratio 18.2 RATIO (10-20); CRP < 2.90 mg/L (0.0-3.0); Calcium,Total 8.6 mg/dL (8.5-10.1); Chloride 111 mmol/L (98-107); Creatinine, Serum 0.66 mg/dL (0.55-1.02); EST Glomerular Filtration Rate 95 mL/min (>60); Est Glom Filt Rate - Afr Amer 114 mL/min (>60); Globulin 3.2 g/dL (2.2-4.2); Glucose 92 mg/dL (74-106); Potassium 3.6 mmol/L (3.5-5.1); Protein, Total 6.6 g/dL (6.4-8.2); Rheumatoid Factor < 10.0 IU/mL (<15); Sodium Level 141 mmol/L (136-145)
[2021-11-13 07:58] LABS: PTHIN 77.7 pg/mL (18.4-80.1)
[2021-11-14 16:16] LABS: ANTINUCLEAR ANTIBODIES DIRECT Negative (Negative)
[2021-11-16 15:09] LABS: Immunoglobulin E 14 IU/mL (6-495); Immunoglobulin G 713 mg/dL (586-1602); PROEL- A/G Ratio 1.5 (0.7-1.7); PROEL- Albumin 3.6 g/dL (2.9-4.4); PROEL- Alpha-1 Globulin 0.2 g/dL (0.0-0.4); PROEL- Alpha-2 Globulin 0.6 g/dL (0.4-1.0); PROEL- Beta Globulin 0.9 g/dL (0.7-1.3); PROEL- Gamma Globulin 0.7 g/dL (0.4-1.8); PROEL- Globulin, Total 2.4 g/dL (2.2-3.9)
[2021-11-17 23:37] LABS: Immunoglobulin A 286 mg/dL (87-352)
== END 2021-11-12 23:59 | disposition home or self-care (01) ==
LOC: MFPLAB 14:06
PROVIDERS: PCP Family Medicine; Visit Provider Family Medicine
DX: M13.0 Polyarthritis, unspecified (principal); D64.9 Anemia, unspecified
CPT/HCPCS: 36415; 80053; 82784; 82785; 83970; 84165; 85027; 86038; 86140; 86431

== ENCOUNTER → 2021-12-06 | Outpatient (CLI) | payer MEDICARE, OTHER, SELFPAY ==
--- NOTE | 2021-12-06 14:35 | BI_ITS ---
MAMMOGRAPHY - BILATERAL SCREENING 3-D TOMOSYNTHESIS REASON FOR EXAM: Female, 66 years old. Screening for breast cancer PERTINENT HISTORY: No significant family history. TECHNIQUE: 2-D mammograms and 3-D Tomosynthesis of the breast (s) were performed. CAD was performed. COMPARISON: No comparison mammograms available at this time. If any prior films become available, an addendum to this report can be generated. FINDINGS: The breast composition is heterogeneously dense that can obscure small breast masses. Scattered benign calcifications are seen. No dense spiculated masses or suspicious microcalcifications are identified. No architectural distortion is identified. There is no skin thickening or retraction. There is a well-defined 1 cm nodule in the central inferior right breast likely a cyst but since there are no previous studies available for comparison, further evaluation with ultrasound is recommended There has been no significant change since the prior study. BI/SCRN MAMM (CAD)W/LEON BILAT IMPRESSION: Well-defined 1 cm nodule in the central inferior right breast needs further evaluation with ultrasound. ASSESSMENT CATEGORY: BIRADS Category 0: Incomplete. Need additional imaging evaluation as above. A letter regarding these results will be sent to the patient by the facility within 30 days. FOLLOW UP RECOMMENDATION: Ultrasound Recommended. (I) Approximately 10% of breast cancers are not detected by mammography. A normal mammogram should not delay biopsy of a clinically suspicious abnormality. Electronically Signed: Cosme Bernabe MD at 12:59 EDT Reading Location ID and State: [facility] / [place] , Service support ,
--- NOTE | 2021-12-06 15:00 | BD_ITS ---
STUDY: DUAL ENERGY X-RAY ABSORPTIOMETRY / DXA REASON FOR EXAM: Female, 66 years old. Post menopausal TECHNIQUE: Bone Mineral Density (BMD) measurements of lumbar spine and bilateral hips were obtained. COMPARISON: Comparison is made with prior study dated 04/08/2018. FINDINGS: Lumbar Spine (L1-L4): g/cm2 (0.688) / T-score (-2.6) / Z-score (-0.8) Findings are suggestive of osteoporosis with a high fracture risk. Left Femur Total: g/cm2 (0.633) / T-score (-2.5) / Z-score (-1.2) Left Femoral Neck: g/cm2 (0.564) / T-score (-2.6) / Z-score (-0.9) Right Femur Total: g/cm2 (0.650) / T-score (-2.4) / Z-score (-1.0) Right Femoral Neck: g/cm2 (0.562) / T-score (-2.6) / Z-score (-0.9) The T-Scores on the most recent prior examination were: Lumbar Spine (L1-L4): There has been improvement of bone density since the previous examination. Left Femur Total: which represents an improvement of 13.8%. Right Femur Total: which represents an improvement of 4.6%. BD/Dexa Bone Density Study IMPRESSION: The patient is considered osteoporotic as outlined below according to World Mandeep Organization (WHO) criteria with a high fracture risk. There has been improvement of bone density since the previous examination. Reference Information: The T-score is the number of standard deviations above or below the standard which is normal for young adults at their peak bone mineral density. The World Health Organization (WHO) interprets the T-scores as follows: Above -1 Normal bone density Between -1 and -2.5 Osteopenia Equal to / or below -2.5 Osteoporosis As a practical clinical guideline, osteopenia may be graded as follows: Mild -1 through -1.5 Moderate -1.6 through -2.0 Severe -2.1 through -2.4 The Z-score is the number of standard deviations above or below age-matched controls. A Z-score of less than -1.5 would be considered abnormal. References: 1. NIH Osteoporosis and Related Bone Diseases www osteo.org 2. International Society for Clinical Densitometry www iscd.org 3. National Osteoporosis Foundation www nof.org Electronically Signed: Aidan Viramontes MD at 15:19 EDT ,
== END | disposition home or self-care (01) ==
LOC: OPBD 14:32
PROVIDERS: PCP Family Medicine; Referring Provider Obstetrics & Gynecology; Visit Provider Obstetrics & Gynecology
DX: Z12.31 Encounter for screening mammogram for malignant neoplasm of breast (principal); Z78.0 Asymptomatic menopausal state
CPT/HCPCS: 77063; 77067; 77080

== ENCOUNTER → 2021-12-12 | Outpatient (CLI) | payer MEDICARE, OTHER, SELFPAY ==
--- NOTE | 2021-12-12 10:53 | US_ITS ---
STUDY: ULTRASOUND BREAST - RIGHT REASON FOR EXAM: Female, 66 years old. Abnormal screening mammogram. TECHNIQUE: Axial and longitudinal images of the RIGHT breast were performed with a high resolution ultrasound transducer. # OF IMAGES: 10 COMPARISON: Comparison is made with prior mammogram dated 12/06/2021. FINDINGS: RIGHT Breast: The mammographic abnormality corresponds to a 1 cm x 0.8 cm x 0.7 cm cyst at the 7 o''clock position of the breast at 1 cm from nipple. US/Breast Limited Unilateral IMPRESSION: 1 cm x 0.8 cm x 0.7 cm cyst at the 7 o''clock position of the breast at 1 cm from nipple. ASSESSMENT CATEGORY: BIRADS Category 2: Benign. A letter regarding these results will be sent to the patient by the facility within 30 days. Electronically Signed: Aidan Viramontes MD at 12:12 EDT ,
== END | disposition home or self-care (01) ==
LOC: OPUS 10:51
PROVIDERS: PCP Family Medicine; Visit Provider Obstetrics & Gynecology
DX: N63.15 Unspecified lump in the right breast, overlapping quadrants (principal)
CPT/HCPCS: 76642

== ENCOUNTER → 2022-02-12 | Outpatient (CLI) | payer MEDICARE, OTHER, SELFPAY ==
[2022-02-12 12:34] LABS: Erythrocyte Sedimentation Rate 3 mm/hr (0-30)
[2022-02-12 12:35] LABS: Absolute Lymphocyte Count 1.75 X10^3/uL (0.83-4.51); Absolute Neutrophil Count 2.4 X10^3/uL (2.0-7.7); Basophil# 0.08 X10^3/uL; Basophil% 1.6 % (0-1); Eosinophils% 4.1 % (0-5); Hematocrit 42.5 % (37-47); Hemoglobin 13.6 g/dL (12.0-15.0); Lymphocyte # 1.75 X10^3/ul (0.83-4.51); Lymphocyte % 35.8 % (19-41); Mean Corpuscular Hgb 32.8 pg (27.0-32.0); Mean Corpuscular Volume 102.4 fL (81-99); Mean Platelet Vol. 10.9 fl (6.2-12.0); Monocyte# 0.43 X10^3/uL; Monocyte% 8.8 % (0-10); NRBC Flagged by Analyzer 0 % (0-5); Neutrophil # 2.42 X10^3/uL (2.7-7.7); Neutrophil % 49.5 % (47-70); Platelet Count 233 K/mm3 (150-450); RBC Distribution Width CV 13.1 % (11.6-14.6); RBC Distribution Width SD 49.8 fl (35.1-43.9); Red Blood Count 4.15 M/mm3 (4.2-5.4); White Blood Count 4.9 K/mm3 (4.4-11.0)
[2022-02-12 12:54] LABS: AST(SGOT) 21 U/L (15-37); Alanine Aminotransfer ALT/SGPT 32 U/L (13-56); Albumin, Serum 3.5 g/dL (3.2-5.0); Alkaline Phosphatase 53 U/L (45-117); Anion Gap 6 (5-15); BUN 23 mg/dL (7-18); BUN/Creat Ratio 30.3 RATIO (10-20); CRP < 2.90 mg/L (0.0-3.0); Calcium,Total 8.7 mg/dL (8.5-10.1); Chloride 111 mmol/L (98-107); Creatinine, Serum 0.76 mg/dL (0.55-1.02); EST Glomerular Filtration Rate 80 mL/min (>60); Est Glom Filt Rate - Afr Amer 97 mL/min (>60); Globulin 3.4 g/dL (2.2-4.2); Glucose 97 mg/dL (74-106); Potassium 4.1 mmol/L (3.5-5.1); Protein, Total 6.9 g/dL (6.4-8.2); Rheumatoid Factor < 10.0 IU/mL (<15); Sodium Level 143 mmol/L (136-145)
[2022-02-12 13:22] LABS: Hepatitis B Surface Antibody Non-Reactive; Hepatitis B Surface Antigen Non-Reactive (Nonreactive); Hepatitis C Antibody Non-Reactive (Nonreactive)
[2022-02-13 14:13] LABS: ANTINUCLEAR ANTIBODIES DIRECT Negative (Negative)
[2022-02-15 15:08] LABS: QNTFERON TB Mitogen Value > 10.00 IU/mL (.); QNTFERON TB Nil Value 0.07 IU/mL (.); QNTFERON TB1+ Ag Value 0.12 IU/mL (.); QNTFERON TB2+ Ag Value 0.13 IU/mL (.)
[2022-02-16 13:36] LABS: CCP IgG Antibodies 11 units (0-19); QNTIFERON TB Positive Criteria Negative (Negative)
== END | disposition home or self-care (01) ==
LOC: MTLAB 10:17
PROVIDERS: PCP Family Medicine; Referring Provider Internal Medicine Rheumatology; Visit Provider Internal Medicine Rheumatology
DX: M06.4 Inflammatory polyarthropathy (principal); M35.00 Sjogren syndrome, unspecified
CPT/HCPCS: 36415; 80053; 85025; 85652; 86038; 86140; 86200; 86431; 86480; 86706; 86803; 87340

== ENCOUNTER → 2022-04-22 | Outpatient (CLI) | payer MEDICARE, OTHER, SELFPAY ==
[2022-04-22 17:41] LABS: Absolute Lymphocyte Count 2.14 X10^3/uL (0.83-4.51); Absolute Neutrophil Count 3.4 X10^3/uL (2.0-7.7); Basophil# 0.07 X10^3/uL; Basophil% 1.1 % (0-1); Eosinophil# 0.15 X10^3/uL; Eosinophils% 2.4 % (0-5); Hematocrit 42.6 % (37-47); Hemoglobin 13.6 g/dL (12.0-15.0); Lymphocyte # 2.14 X10^3/ul (0.83-4.51); Mean Corp Hgb Conc 31.9 g/dL (32-36); Mean Corpuscular Hgb 33.5 pg (27.0-32.0); Mean Corpuscular Volume 104.9 fL (81-99); Mean Platelet Vol. 10.1 fl (6.2-12.0); Monocyte# 0.56 X10^3/uL; Monocyte% 8.9 % (0-10); NRBC Flagged by Analyzer 0 % (0-5); Neutrophil # 3.36 X10^3/uL (2.7-7.7); Neutrophil % 53.3 % (47-70); Platelet Count 258 K/mm3 (150-450); RBC Distribution Width CV 14.8 % (11.6-14.6); RBC Distribution Width SD 57.4 fl (35.1-43.9); Red Blood Count 4.06 M/mm3 (4.2-5.4); White Blood Count 6.3 K/mm3 (4.4-11.0)
[2022-04-22 17:59] LABS: ALB/GLOB Ratio 1.2 RATIO (0.9-2.4); AST(SGOT) 20 U/L (15-37); Alanine Aminotransfer ALT/SGPT 36 U/L (13-56); Albumin, Serum 3.6 g/dL (3.2-5.0); Alkaline Phosphatase 43 U/L (45-117); Anion Gap 5 (5-15); BUN 18 mg/dL (7-18); BUN/Creat Ratio 18.8 RATIO (10-20); Calcium,Total 8.9 mg/dL (8.5-10.1); Chloride 108 mmol/L (98-107); Creatinine, Serum 0.96 mg/dL (0.55-1.02); EST Glomerular Filtration Rate 61 mL/min (>60); Est Glom Filt Rate - Afr Amer 74 mL/min (>60); Glucose 97 mg/dL (74-106); Potassium 4.1 mmol/L (3.5-5.1); Protein, Total 6.6 g/dL (6.4-8.2); Sodium Level 141 mmol/L (136-145)
== END | disposition home or self-care (01) ==
LOC: MTLAB 16:13
PROVIDERS: PCP Family Medicine; Referring Provider Internal Medicine Rheumatology; Visit Provider Internal Medicine Rheumatology
DX: M06.4 Inflammatory polyarthropathy (principal); Z79.899 Other long term (current) drug therapy
CPT/HCPCS: 36415; 80053; 85025

== ENCOUNTER → 2022-06-21 | Outpatient (CLI) | payer MEDICARE, OTHER, SELFPAY ==
[2022-06-21 18:13] LABS: Absolute Lymphocyte Count 2.06 X10^3/uL (0.83-4.51); Absolute Neutrophil Count 2.6 X10^3/uL (2.0-7.7); Basophil# 0.07 X10^3/uL; Basophil% 1.3 % (0-1); Eosinophil# 0.11 X10^3/uL; Hematocrit 43.5 % (37-47); Hemoglobin 13.8 g/dL (12.0-15.0); Lymphocyte # 2.06 X10^3/ul (0.83-4.51); Lymphocyte % 37.7 % (19-41); Mean Corp Hgb Conc 31.7 g/dL (32-36); Mean Corpuscular Hgb 34.7 pg (27.0-32.0); Mean Corpuscular Volume 109.3 fL (81-99); Mean Platelet Vol. 11.2 fl (6.2-12.0); Monocyte# 0.62 X10^3/uL; Monocyte% 11.4 % (0-10); NRBC Flagged by Analyzer 0.4 % (0-5); Neutrophil # 2.58 X10^3/uL (2.7-7.7); Neutrophil % 47.2 % (47-70); Platelet Count 256 K/mm3 (150-450); RBC Distribution Width CV 14.5 % (11.6-14.6); RBC Distribution Width SD 58.3 fl (35.1-43.9); Red Blood Count 3.98 M/mm3 (4.2-5.4); White Blood Count 5.5 K/mm3 (4.4-11.0)
[2022-06-21 18:36] LABS: ALB/GLOB Ratio 1.1 RATIO (0.9-2.4); AST(SGOT) 24 U/L (15-37); Alanine Aminotransfer ALT/SGPT 31 U/L (13-56); Albumin, Serum 3.7 g/dL (3.2-5.0); Alkaline Phosphatase 43 U/L (45-117); Anion Gap 6 (5-15); BUN 20 mg/dL (7-18); BUN/Creat Ratio 20.7 RATIO (10-20); Calcium,Total 8.8 mg/dL (8.5-10.1); Chloride 110 mmol/L (98-107); Creatinine, Serum 0.97 mg/dL (0.55-1.02); EST Glomerular Filtration Rate 61 mL/min (>60); Est Glom Filt Rate - Afr Amer 74 mL/min (>60); Globulin 3.3 g/dL (2.2-4.2); Glucose 70 mg/dL (74-106); Potassium 3.7 mmol/L (3.5-5.1); Sodium Level 144 mmol/L (136-145)
== END | disposition home or self-care (01) ==
LOC: MTLAB 14:21
PROVIDERS: PCP Family Medicine; Referring Provider Internal Medicine Rheumatology; Visit Provider Internal Medicine Rheumatology
DX: M06.4 Inflammatory polyarthropathy (principal); M35.00 Sjogren syndrome, unspecified; J47.9 Bronchiectasis, uncomplicated; M48.061 Spinal stenosis, lumbar region without neurogenic claudication; H93.13 Tinnitus, bilateral; H91.90 Unspecified hearing loss, unspecified ear; J45.909 Unspecified asthma, uncomplicated; K21.9 Gastro-esophageal reflux disease without esophagitis; I83.10 Varicose veins of unspecified lower extremity with inflammation; M81.0 Age-related osteoporosis without current pathological fracture; Z86.711 Personal history of pulmonary embolism; Z79.899 Other long term (current) drug therapy
CPT/HCPCS: 36415; 80053; 85025

== ENCOUNTER 2022-08-15 11:00 | Outpatient (RCR) | payer MEDICARE, OTHER, SELFPAY ==
--- NOTE | 2022-06-17 16:08 | HP.PTEVAL ---
Patient's Visit Information YENNY LYNN is a 67 year old F referred to Physical Therapy by Dr. Julian Asher MD with a diagnosis of SPINAL STENOSIS AND R BUTTOCK PAIN. Date of Evaluation: 06/17/22 Physical Therapist: Nita Cho PT, Cert MDT - Visit Plan Frequency: 2-3x /Week Duration: 4-6 Weeks Plan: DRY NEEDLING CONSULT. AQUATIC THERAPY FOR PAIN RELIEF, POSTURE CORRECTION/STRENGTHENING, INSTRUCTION IN APPROPRIATE BODY MECHANICS AND ACTIVITY MODIFICATIONS. DLS WITH A NEUTRAL SPINE TOLERATED. EMIGDIO LE ROM, STRETCHING AND STRENGTHENING. HEP INSTRUCTION. - Subjective Work/Leisure: UNEMPLOYEED. Disability: NO. Present symptoms: EMIGDIO LOW BACK AND BUTTOCK PAIN. L GROIN PAIN. DENIES EMIGDIO LE NUMBNESS AND TINGLING. Present since: A FEW WKS AGO. Pain Scale: WORST 6/10, LEAST 2/10. Currently: 4/10. Is it getting better, worse or staying the same: WORSENING. Commenced as a result of: IT FELT LIKE SOMETHING SNAPPED IN LOWER BACK RIGHT WHERE JANA HAD MY SURGERIES AND HURT LIKE HELL BENDING OVER AFTER VACUUMING. Worse: SITTING TOO LONG, DOING LAUNDRY, COOKING ON THE STOVE, SITTING AT [employer] WATCHING GRANDSON PLAY HOCKEY. INCREASED PAIN FIRST THING IN THE MORNING. Better: MEDICINE, REST, HOT SHOWER. Disturbed sleep: YES. Previous history/Previous treatment: 3 BACK SURGERIES WITH THE LAST SURGERY BEING BY DR. ARAGON APPROX JAN 2017. Treatment this episode: PT CONSULT. Coughing/sneezing/straining: UNSURE. Gait: UNSURE. Bowel or Bladder Dysfunction: NO. Accidents: NO. Unexplained weight loss: NO. Imaging: NONE RECENT. PMH/Recent major surgery: DX'D WITH RA. EXTREME DRY EYES. OSTEOPOROSIS. Bronchiectasis. COPD. SWELLING IN LEGS. INFLAMMATORY POLYARTHROPATHY, PRISON DRUG THERAPY, TINNITUS, EMIGDIO HEARING IMPAIRMENT, ASTHMA, REFLUX, LIPODERMATOSCLEROSIS, H/O PULMONARY EMBOLISM. H/O HERNIA REPAIR. L WRIST ORIF. OTHER: PATIENT REPORTS SHE WANTS TO DO AQUATIC THERAPY AND TRY DRY NEEDLING. - Objective Sitting/Standing Posture: POOR. FH. RSH'S. REDUCED LUMBAR LORDOSIS. Active Correction of posture: NE. Other Observations: INDEP GAIT AND TRANSFERS. Sensory deficit: EMIGDIO LE LIGHT TOUCH SENSATION GROSSLY INTACT AND SYMMETRICAL. ROM deficit: TIGHT EMIGDIO HS'S AND GASTROC SOLEUS COMPLEX'S. TIGHT EMIGDIO HIP IR'S L>R. Motor deficit: EMIGDIO HIPS 4-/5, KNEES 4/5, ANKLES 5/5. Reflexes: R QUAD 2/3, L QUAD 1/3, EMIGDIO ACHILLES - ABSENT. Dural Signs: POSITIVE L LE. Lumbar mvmt loss: flex - MOD. ext - JOLENE. R SG - JOLENE. L SG - JOLENE. INCREASED R LBP WITH LUMBAR FLEXION TESTING. INCREASED LBP WITH EMIGDIO SG. DENIES INCREASED PAIN WITH LUMBAR EXT ROM TESTING. Core strength: POOR. Palpation: NO ACUTE TENDERNESS OF LOWER THORACIC SPINE, LUMBAR SPINE, PARASPINALS OR HIPS BUT INCREASED M. TONE EMIGDIO PARASPINALS. OTHER: PATIENT DENIES ANY PHYSICIAN RESTRICTIONS. - Balance/Special Test Scores Oswestry Low Back Score: 17 - Goals Goal 1:: DECREASE C/O LOW BACK PAIN, EMIGDIO BUTTOCK PAIN AND L GROIN PAIN. Goal Time Frame: 4-6 Weeks Goal 2:: IMPROVE PERSONAL CARE, LIFTING, WALKING, SITTING, STANDING, SOCIAL LIFE, TRAVEL AND HOMEMAKING FUNCTION Goal Time Frame: 4-6 Weeks Goal 3:: INSTRUCT IN PROPHYLAXIS Goal Time Frame: 4-6 Weeks - Anticipated Interventions Patient/Client Instruction: Educate patient on: Condition, Plan of Care, Risk Factors For the Purpose of:: To improve self management Therapeutic Exercise to Include: Strength training, Body mechanics, Postural training, Flexibilty training, Neuromotor development, In an aquatic setting, Dynamic Lumbar Stabilization, Scapular Strength/Stabilization For the Purpose of:: To decrease pain, To increase ROM, To improve muscle performance and motor function, To increase tolerance to activity/condition/position, To improve ability of physical actions for home/community/work/leisure Manual Therapy Techniques to Include: Functional dry needling Comment: DRY NEEDLING CONSULT For the Purpose of:: To decrease pain Thank you for the opportunity to evaluate your patient. For Medicare and Medicare HMO plans, please review the plan of care and approve it. It will need to be FAXED BACK to us at [phone] for Medicare purposes. For Medicare only, by signing this I certify the plan of care. Please let me know if there are questions or concerns regarding this plan of care. Physician Signature: Date:
--- NOTE | 2022-08-15 11:39 | HP.PTDCSUM ---
It has been my pleasure to treat YENNY LYNN referred by Dr. Julian Asher MD, with the diagnosis of SPINAL STENOSIS AND R BUTTOCK PAIN for a total of 9 visit(s). Discharge Date: 08/15/22 Please see the following information for a summary of their discharge status. Subjective: PATIENT REPORTS SHE HAS BEEN VERY SICK WITH INTESTINAL FLU BUT GETTING BETTER NOW. PATIENT REPORTS SHE HAS NOT FOLLOWED UP WITH DR. ASHER ABOUT HER BACK PAIN SINCE STARTING PT AND SHE HAS NOT HAD BACK X-RAYS SINCE THIS FLARE UP STARTED. SHE REPORTS HER PAIN WAS GETTING BETTER WITH AQUATIC THERAPY PRIOR TO GETTING SICK. STATES SHE HASN'T BEEN DOING ANYTHING SINCE GETTING SICK. GOING TO [place] AUGUST 29 FOR 2 WKS. STATES SHE WILL HAVE ACCESS TO A POOL AND THE [facility]CE[facility] AND CAN CONTINUE HER EX'S THERE. STATES SHE FEELS GOOD ENOUGH NOW THAT SHE DOES NOT NEED TO CONTACT HER SURGEON. Bilateral Back Pain Intensity (Out of 10): 3 Lumbar spine Pain Intensity (Out of 10): 5 % Improvement: 65 Objective/Function: PATIENT WAS SEEN TODAY FOR RE-ASSESSMENT OF PROGRESS TOWARD THE SET PT GOALS AND THE NEED FOR FURTHER PHYSICAL THERAPY VS READINESS FOR DISCHARGE. UPON EXAM TODAY: STRENGTH: R HIP 4/5, L HIP 4-/5, EMIGDIO KNEES 5/5, EMIGDIO ANKLES 5/5. Reflexes: R QUAD 2/3, L QUAD 1/3, EMIGDIO ACHILLES - ABSENT. Dural Signs: NEGATIVE EMIGDIO LE'S. Lumbar mvmt loss: flex - MIN. ext - JOLENE. R SG - MOD. L SG - MOD. PATIENT DENIES INCREASED PAIN WITH LUMBAR ROM TESTING ALL PLANES. Core strength: POOR Goal 1:: DECREASE C/O LOW BACK PAIN, EMIGDIO BUTTOCK PAIN AND L GROIN PAIN. Goal Progress: Goal Met Goal 2:: IMPROVE PERSONAL CARE, LIFTING, WALKING, SITTING, STANDING, SOCIAL LIFE, TRAVEL AND HOMEMAKING FUNCTION Goal Progress: Goal Met Goal 3:: INSTRUCT IN PROPHYLAXIS Goal Progress: Goal Met Plan: D/C. PATIENT WILL DISCUSS FURTHER THERAPY WITH HER PCP NEEDED UPON RETURN FROM [place]. If there are questions or concerns regarding this patient's physical therapy, please feel free to call me at [phone]. Thank you for the referral of this patient. Sincerely, Nita Cho, PT, Cert MDT Balance/Gait/Functional tests - Balance/Special Test Scores Oswestry Low Back Score: 14
== END 2022-08-15 15:08 | disposition home or self-care (01) ==
LOC: PT 11:00
PROVIDERS: PCP Family Medicine; Referring Provider Family Medicine; Visit Provider Family Medicine
DX: M48.00 Spinal stenosis, site unspecified (principal); M54.50 Low back pain, unspecified
CPT/HCPCS: 97113; 97162; 97164

== ENCOUNTER → 2022-08-20 | Outpatient (CLI) | payer MEDICARE, OTHER, SELFPAY ==
[2022-08-20 17:50] LABS: Absolute Lymphocyte Count 2.24 X10^3/uL (0.83-4.51); Absolute Neutrophil Count 3.6 X10^3/uL (2.0-7.7); Basophil# 0.05 X10^3/uL; Basophil% 0.7 % (0-1); Eosinophil# 0.17 X10^3/uL; Eosinophils% 2.5 % (0-5); Hematocrit 43.4 % (37-47); Hemoglobin 13.7 g/dL (12.0-15.0); Lymphocyte # 2.24 X10^3/ul (0.83-4.51); Lymphocyte % 33.3 % (19-41); Mean Corp Hgb Conc 31.6 g/dL (32-36); Mean Corpuscular Hgb 34.6 pg (27.0-32.0); Mean Corpuscular Volume 109.6 fL (81-99); Mean Platelet Vol. 10.7 fl (6.2-12.0); Monocyte# 0.63 X10^3/uL; Monocyte% 9.4 % (0-10); NRBC Flagged by Analyzer 0 % (0-5); Neutrophil % 53.7 % (47-70); Platelet Count 256 K/mm3 (150-450); RBC Distribution Width CV 14.6 % (11.6-14.6); RBC Distribution Width SD 58.8 fl (35.1-43.9); Red Blood Count 3.96 M/mm3 (4.2-5.4); White Blood Count 6.7 K/mm3 (4.4-11.0)
[2022-08-20 18:02] LABS: ALB/GLOB Ratio 1.1 RATIO (0.9-2.4); AST(SGOT) 18 U/L (15-37); Alanine Aminotransfer ALT/SGPT 31 U/L (13-56); Albumin, Serum 3.7 g/dL (3.2-5.0); Alkaline Phosphatase 50 U/L (45-117); Anion Gap 4 (5-15); BUN 16 mg/dL (7-18); BUN/Creat Ratio 19.3 RATIO (10-20); Calcium,Total 9.7 mg/dL (8.5-10.1); Chloride 109 mmol/L (98-107); Creatinine, Serum 0.83 mg/dL (0.55-1.02); EST Glomerular Filtration Rate 73 mL/min (>60); Est Glom Filt Rate - Afr Amer 88 mL/min (>60); Globulin 3.5 g/dL (2.2-4.2); Glucose 86 mg/dL (74-106); Potassium 3.8 mmol/L (3.5-5.1); Protein, Total 7.2 g/dL (6.4-8.2); Sodium Level 140 mmol/L (136-145)
== END | disposition home or self-care (01) ==
LOC: MTLAB 15:20
PROVIDERS: PCP Family Medicine; Referring Provider Internal Medicine Rheumatology; Visit Provider Internal Medicine Rheumatology
DX: M06.4 Inflammatory polyarthropathy (principal); Z79.899 Other long term (current) drug therapy
CPT/HCPCS: 36415; 80053; 85025

== ENCOUNTER → 2022-10-28 | Outpatient (CLI) | payer MEDICARE, OTHER, SELFPAY ==
[2022-10-28 18:03] LABS: Absolute Lymphocyte Count 1.43 X10^3/uL (0.83-4.51); Absolute Neutrophil Count 9.5 X10^3/uL (2.0-7.7); Basophil# 0.07 X10^3/uL; Basophil% 0.6 % (0-1); Eosinophil# 0.07 X10^3/uL; Eosinophils% 0.6 % (0-5); Hematocrit 41.7 % (37-47); Hemoglobin 13.7 g/dL (12.0-15.0); Lymphocyte # 1.43 X10^3/ul (0.83-4.51); Lymphocyte % 12.3 % (19-41); Mean Corp Hgb Conc 32.9 g/dL (32-36); Mean Corpuscular Hgb 34.7 pg (27.0-32.0); Mean Corpuscular Volume 105.6 fL (81-99); Mean Platelet Vol. 10.8 fl (6.2-12.0); Monocyte# 0.51 X10^3/uL; Monocyte% 4.4 % (0-10); NRBC Flagged by Analyzer 0 % (0-5); Neutrophil # 9.47 X10^3/uL (2.7-7.7); Neutrophil % 81.4 % (47-70); Platelet Count 276 K/mm3 (150-450); RBC Distribution Width CV 14.1 % (11.6-14.6); RBC Distribution Width SD 55.1 fl (35.1-43.9); Red Blood Count 3.95 M/mm3 (4.2-5.4); White Blood Count 11.6 K/mm3 (4.4-11.0)
[2022-10-28 18:46] LABS: ALB/GLOB Ratio 1.1 RATIO (0.9-2.4); AST(SGOT) 22 U/L (15-37); Alanine Aminotransfer ALT/SGPT 42 U/L (13-56); Albumin, Serum 3.5 g/dL (3.2-5.0); Alkaline Phosphatase 44 U/L (45-117); Anion Gap 6 (5-15); BUN 19 mg/dL (7-18); BUN/Creat Ratio 21.4 RATIO (10-20); Calcium,Total 8.7 mg/dL (8.5-10.1); Chloride 106 mmol/L (98-107); Creatinine, Serum 0.89 mg/dL (0.55-1.02); EST Glomerular Filtration Rate 67 mL/min (>60); Est Glom Filt Rate - Afr Amer 81 mL/min (>60); Globulin 3.2 g/dL (2.2-4.2); Glucose 102 mg/dL (74-106); Potassium 3.9 mmol/L (3.5-5.1); Protein, Total 6.7 g/dL (6.4-8.2); Sodium Level 140 mmol/L (136-145)
== END | disposition home or self-care (01) ==
LOC: MTLAB 14:00
PROVIDERS: PCP Family Medicine; Referring Provider Internal Medicine Rheumatology; Visit Provider Internal Medicine Rheumatology
DX: M06.4 Inflammatory polyarthropathy (principal); Z79.899 Other long term (current) drug therapy
CPT/HCPCS: 36415; 80053; 85025

== ENCOUNTER → 2022-11-22 | Outpatient (CLI) | payer MEDICARE, OTHER, SELFPAY ==
[2022-11-22 15:12] LABS: Absolute Lymphocyte Count 1.64 X10^3/uL (0.83-4.51); Absolute Neutrophil Count 2.5 X10^3/uL (2.0-7.7); Basophil# 0.04 X10^3/uL; Basophil% 0.8 % (0-1); Eosinophil# 0.13 X10^3/uL; Eosinophils% 2.7 % (0-5); Hematocrit 41.2 % (37-47); Hemoglobin 13.4 g/dL (12.0-15.0); Lymphocyte # 1.64 X10^3/ul (0.83-4.51); Lymphocyte % 34.3 % (19-41); Mean Corp Hgb Conc 32.5 g/dL (32-36); Mean Corpuscular Hgb 34.7 pg (27.0-32.0); Mean Corpuscular Volume 106.7 fL (81-99); Mean Platelet Vol. 10.7 fl (6.2-12.0); Monocyte# 0.46 X10^3/uL; Monocyte% 9.6 % (0-10); NRBC Flagged by Analyzer 0 % (0-5); Neutrophil % 52.4 % (47-70); Platelet Count 236 K/mm3 (150-450); RBC Distribution Width SD 53.7 fl (35.1-43.9); Red Blood Count 3.86 M/mm3 (4.2-5.4); White Blood Count 4.8 K/mm3 (4.4-11.0)
[2022-11-22 15:17] LABS: Erythrocyte Sedimentation Rate 9 mm/hr (0-30)
[2022-11-22 15:38] LABS: ALB/GLOB Ratio 0.9 RATIO (0.9-2.4); AST(SGOT) 33 U/L (15-37); Alanine Aminotransfer ALT/SGPT 52 U/L (13-56); Albumin, Serum 3.3 g/dL (3.2-5.0); Alkaline Phosphatase 63 U/L (45-117); Anion Gap 5 (5-15); BUN 22 mg/dL (7-18); BUN/Creat Ratio 25.9 RATIO (10-20); Calcium,Total 8.9 mg/dL (8.5-10.1); Chloride 110 mmol/L (98-107); Creatinine, Serum 0.85 mg/dL (0.55-1.02); EST Glomerular Filtration Rate 71 mL/min (>60); Est Glom Filt Rate - Afr Amer 85 mL/min (>60); Globulin 3.5 g/dL (2.2-4.2); Glucose 131 mg/dL (74-106); Potassium 3.9 mmol/L (3.5-5.1); Protein, Total 6.8 g/dL (6.4-8.2); Sodium Level 143 mmol/L (136-145)
[2022-11-25 08:42] LABS: Ferritin 58 ng/mL (8-252)
== END | disposition home or self-care (01) ==
LOC: MTLAB 12:33
PROVIDERS: PCP Family Medicine; Referring Provider Family Medicine; Visit Provider Family Medicine
DX: R53.83 Other fatigue (principal); Z79.1 Long term (current) use of non-steroidal anti-inflammatories (NSAID); K12.1 Other forms of stomatitis; D64.9 Anemia, unspecified
CPT/HCPCS: 36415; 80053; 82728; 84443; 85025; 85652

== ENCOUNTER → 2022-11-28 | Outpatient (CLI) | payer MEDICARE, OTHER, SELFPAY ==
--- NOTE | 2022-11-28 14:38 | RAD_ITS ---
EXAM: XR LUMBOSACRAL SPINE, 4 OR 5 VIEWS CLINICAL INDICATION: DDD TECHNIQUE: Frontal, lateral and bilateral oblique views of the lumbar spine. COMPARISON: Plain film 04/10/2021 FINDINGS: VERTEBRAE: Stable surgical changes of the lower lumbar spine with anterior and posterior fusion hardware. Levocurvature. Preserved vertebral body height. No fracture. No spondylolisthesis. No significant facet arthropathy. DISC SPACES: Degenerative changes of the intervertebral discs. GASTROINTESTINAL TRACT: Unremarkable as visualized. Included bowel gas pattern is non-obstructive. RAD/L/S Spine Min 4 Views IMPRESSION: Stable degenerative and surgical changes of the lumbar spine. Electronically Signed: Charly Nur MD at 1:19 EDT ,
--- NOTE | 2022-11-28 14:41 | RAD_ITS ---
EXAM: XR LEFT HIP WITH PELVIS WHEN PERFORMED, 2 OR 3 VIEWS CLINICAL INDICATION: PAIN TECHNIQUE: Two or three views of the left hip with pelvis when performed. COMPARISON: No relevant prior studies available. FINDINGS: BONES/JOINTS: Mild degenerative changes of the left hip. Surgical changes of the lumbosacral spine. No displaced fracture. No destructive or sclerotic lesions. Note that overlapping bowel shadows may however obscure fine detail. Sacroiliac joint is unremarkable. No widening of the pubic symphysis. SOFT TISSUES: Unremarkable. No soft tissue swelling or gas. RAD/HIP, UNI W/ Pelvis 2-3 Views IMPRESSION: Mild degenerative changes of the left hip. Electronically Signed: Charly Nur MD at 1:08 EDT ,
== END | disposition home or self-care (01) ==
LOC: MTRAD 14:36
PROVIDERS: PCP Family Medicine; Visit Provider Nurse Practitioner Acute Care
DX: M25.552 Pain in left hip (principal); M51.36 Other intervertebral disc degeneration, lumbar region; M51.37 Other intervertebral disc degeneration, lumbosacral region; M48.061 Spinal stenosis, lumbar region without neurogenic claudication; M54.17 Radiculopathy, lumbosacral region; M43.06 Spondylolysis, lumbar region
CPT/HCPCS: 72110; 73502

== ENCOUNTER → 2022-12-26 | Outpatient (CLI) | payer MEDICARE, OTHER, SELFPAY ==
--- NOTE | 2022-12-26 16:27 | RAD_ITS ---
STUDY: X-RAY - CERVICAL SPINE REASON FOR EXAM: Female, 67 years old. Neck pain. Known polyarthritis. TECHNIQUE: 5 view(s) of the cervical spine were obtained on 6 images. COMPARISON: None FINDINGS: Osteopenia. Normal anterior atlantoaxial articulation. Normal odontoid process. Normal cervical lordosis. Moderate diffuse uncovertebral and facet sclerosis. 3 mm of anterolisthesis of C5 on C4. Intervertebral disc space narrowing at C6-7 and C7-T1. Mild anterior bony neural foraminal encroachment at C6-7 bilaterally. The soft tissue structures are normal. RAD/Cerv Spine 4 or 5 Views IMPRESSION: Osteopenia with mild lower cervical spondylosis as described. No acute abnormality or erosive changes. Electronically Signed: Jr Vasquez MD at 11:27 EDT ,
--- NOTE | 2022-12-26 16:34 | RAD_ITS ---
STUDY: X-RAY - RIGHT SHOULDER REASON FOR EXAM: Female, 67 years old. Shoulder pain. Known polyarthritis. TECHNIQUE: 4 view(s) of the shoulder. COMPARISON: None. FINDINGS: Osteopenia. Mild arthrosis of the glenohumeral joint. Mild arthrosis of the AC joint. Normal humeral head and visualized proximal humerus. The soft tissue structures are unremarkable. Normal visualized pulmonary apex. RAD/Shoulder min 2 Views IMPRESSION: Osteopenia with mild arthrosis of the glenohumeral and acromioclavicular joints. No acute abnormality or erosive changes. Electronically Signed: Jr Vasquez MD at 10:34 EDT ,
== END | disposition home or self-care (01) ==
PROVIDERS: PCP Family Medicine; Referring Provider Family Medicine; Visit Provider Family Medicine
DX: M06.4 Inflammatory polyarthropathy (principal); M54.2 Cervicalgia
CPT/HCPCS: 72050; 73030

== ENCOUNTER → 2023-01-24 | Outpatient (CLI) | payer MEDICARE, OTHER, SELFPAY ==
--- NOTE | 2023-01-24 12:10 | RAD_ITS ---
STUDY: X-RAY - RIGHT KNEE REASON FOR EXAM: Female, 67 years old. trauma/fall x 2, anterior/medial TECHNIQUE: 4 view(s) of the knee. COMPARISON: None. FINDINGS: Normal visualized distal femur. Normal visualized proximal tibia and fibula. Normal proximal tibiofibular articulation. Normal medial femorotibial compartment. Normal lateral femorotibial compartment. Normal patellofemoral articulation. The soft tissue structures are unremarkable. RAD/Knee 4 or More Views IMPRESSION: Normal x-ray examination of the knee. Electronically Signed: Russell Macias MD at 19:21 EDT ,
[2023-01-24 15:10] LABS: Absolute Lymphocyte Count 2.87 X10^3/uL (0.83-4.51); Absolute Neutrophil Count 4.7 X10^3/uL (2.0-7.7); Basophil# 0.09 X10^3/uL; Eosinophil# 0.24 X10^3/uL; Eosinophils% 2.7 % (0-5); Hematocrit 45.6 % (37-47); Hemoglobin 14.5 g/dL (12.0-15.0); Lymphocyte # 2.87 X10^3/ul (0.83-4.51); Lymphocyte % 32.5 % (19-41); Mean Corp Hgb Conc 31.8 g/dL (32-36); Mean Corpuscular Hgb 33.6 pg (27.0-32.0); Mean Corpuscular Volume 105.8 fL (81-99); Monocyte# 0.87 X10^3/uL; Monocyte% 9.9 % (0-10); NRBC Flagged by Analyzer 0 % (0-5); Neutrophil # 4.67 X10^3/uL (2.7-7.7); Platelet Count 244 K/mm3 (150-450); RBC Distribution Width CV 13.6 % (11.6-14.6); RBC Distribution Width SD 53.3 fl (35.1-43.9); Red Blood Count 4.31 M/mm3 (4.2-5.4); White Blood Count 8.8 K/mm3 (4.4-11.0)
[2023-01-24 16:24] LABS: ALB/GLOB Ratio 0.9 RATIO (0.9-2.4); AST(SGOT) 18 U/L (15-37); Alanine Aminotransfer ALT/SGPT 32 U/L (13-56); Albumin, Serum 3.4 g/dL (3.2-5.0); Alkaline Phosphatase 56 U/L (45-117); Anion Gap 3 (5-15); BUN 21 mg/dL (7-18); BUN/Creat Ratio 25.4 RATIO (10-20); Calcium,Total 8.7 mg/dL (8.5-10.1); Chloride 107 mmol/L (98-107); Creatinine, Serum 0.83 mg/dL (0.55-1.02); EST Glomerular Filtration Rate 73 mL/min (>60); Est Glom Filt Rate - Afr Amer 88 mL/min (>60); Globulin 3.8 g/dL (2.2-4.2); Glucose 103 mg/dL (74-106); Potassium 3.8 mmol/L (3.5-5.1); Protein, Total 7.2 g/dL (6.4-8.2); Sodium Level 139 mmol/L (136-145); Thyroid Stim Hormone (TSH) 3.14 uIU/mL (0.358-3.74)
== END | disposition home or self-care (01) ==
PROVIDERS: PCP Family Medicine; Referring Provider Family Medicine; Visit Provider Family Medicine
DX: K12.1 Other forms of stomatitis (principal); K12.30 Oral mucositis (ulcerative), unspecified; R61 Generalized hyperhidrosis
CPT/HCPCS: 36415; 73564; 80053; 84443; 85025; 86618; 86658

== ENCOUNTER → 2023-02-05 | Outpatient (CLI) | payer MEDICARE, OTHER, SELFPAY ==
[2023-02-05 18:11] LABS: Absolute Lymphocyte Count 2.16 X10^3/uL (0.83-4.51); Absolute Neutrophil Count 2.8 X10^3/uL (2.0-7.7); Basophil# 0.06 X10^3/uL; Eosinophil# 0.13 X10^3/uL; Eosinophils% 2.2 % (0-5); Hematocrit 43.1 % (37-47); Hemoglobin 13.6 g/dL (12.0-15.0); Lymphocyte # 2.16 X10^3/ul (0.83-4.51); Lymphocyte % 36.9 % (19-41); Mean Corp Hgb Conc 31.6 g/dL (32-36); Mean Corpuscular Hgb 33.4 pg (27.0-32.0); Mean Corpuscular Volume 105.9 fL (81-99); Mean Platelet Vol. 11.2 fl (6.2-12.0); Monocyte# 0.71 X10^3/uL; Monocyte% 12.1 % (0-10); NRBC Flagged by Analyzer 0 % (0-5); Neutrophil # 2.77 X10^3/uL (2.7-7.7); Neutrophil % 47.5 % (47-70); Platelet Count 260 K/mm3 (150-450); RBC Distribution Width CV 13.2 % (11.6-14.6); RBC Distribution Width SD 51.7 fl (35.1-43.9); Red Blood Count 4.07 M/mm3 (4.2-5.4); White Blood Count 5.9 K/mm3 (4.4-11.0)
[2023-02-08 16:08] LABS: G6PD Quant Test 344 (127-427); Red Blood Cell Count Test/G6PD 3.98 x10E6/uL (3.77-5.28)
== END | disposition home or self-care (01) ==
LOC: MTLAB 16:04
PROVIDERS: PCP Family Medicine; Referring Provider Internal Medicine Rheumatology; Visit Provider Internal Medicine Rheumatology
DX: M06.4 Inflammatory polyarthropathy (principal); Z79.899 Other long term (current) drug therapy
CPT/HCPCS: 36415; 80053; 82955; 85025

== ENCOUNTER → 2023-02-07 | Outpatient (CLI) | payer MEDICARE, OTHER, SELFPAY ==
[2023-02-07 12:48] LABS: ALB/GLOB Ratio 0.9 RATIO (0.9-2.4); AST(SGOT) 24 U/L (15-37); Alanine Aminotransfer ALT/SGPT 33 U/L (13-56); Albumin, Serum 3.3 g/dL (3.2-5.0); Alkaline Phosphatase 78 U/L (45-117); Anion Gap 4 (5-15); BUN 17 mg/dL (7-18); BUN/Creat Ratio 20.8 RATIO (10-20); Calcium,Total 9.1 mg/dL (8.5-10.1); Chloride 107 mmol/L (98-107); Creatinine, Serum 0.82 mg/dL (0.55-1.02); EST Glomerular Filtration Rate 74 mL/min (>60); Est Glom Filt Rate - Afr Amer 89 mL/min (>60); Globulin 3.8 g/dL (2.2-4.2); Glucose 103 mg/dL (74-106); Potassium 3.7 mmol/L (3.5-5.1); Protein, Total 7.1 g/dL (6.4-8.2); Sodium Level 141 mmol/L (136-145)
== END | disposition home or self-care (01) ==
LOC: MTLAB 11:22
PROVIDERS: PCP Family Medicine; Referring Provider Internal Medicine Rheumatology; Visit Provider Internal Medicine Rheumatology
DX: M06.4 Inflammatory polyarthropathy (principal); Z79.899 Other long term (current) drug therapy
CPT/HCPCS: 80053

== ENCOUNTER → 2023-04-08 | Outpatient (CLI) | payer MEDICARE, OTHER, SELFPAY ==
[2023-04-08 17:45] LABS: Absolute Lymphocyte Count 2.11 X10^3/uL (0.83-4.51); Absolute Neutrophil Count 4.6 X10^3/uL (2.0-7.7); Basophil# 0.08 X10^3/uL; Eosinophil# 0.11 X10^3/uL; Eosinophils% 1.4 % (0-5); Hemoglobin 14.9 g/dL (12.0-15.0); Lymphocyte # 2.11 X10^3/ul (0.83-4.51); Lymphocyte % 27.6 % (19-41); Mean Corp Hgb Conc 31.7 g/dL (32-36); Mean Corpuscular Hgb 32.4 pg (27.0-32.0); Mean Corpuscular Volume 102.2 fL (81-99); Mean Platelet Vol. 10.7 fl (6.2-12.0); Monocyte# 0.72 X10^3/uL; Monocyte% 9.4 % (0-10); NRBC Flagged by Analyzer 0 % (0-5); Neutrophil % 60.2 % (47-70); Platelet Count 315 K/mm3 (150-450); RBC Distribution Width CV 13.8 % (11.6-14.6); RBC Distribution Width SD 52.2 fl (35.1-43.9); White Blood Count 7.7 K/mm3 (4.4-11.0)
[2023-04-08 18:19] LABS: AST(SGOT) 16 U/L (15-37); Alanine Aminotransfer ALT/SGPT 27 U/L (13-56); Albumin, Serum 3.7 g/dL (3.2-5.0); Alkaline Phosphatase 56 U/L (45-117); Anion Gap 4 (5-15); BUN 21 mg/dL (7-18); BUN/Creat Ratio 21.3 RATIO (10-20); Calcium,Total 9.5 mg/dL (8.5-10.1); Chloride 107 mmol/L (98-107); Creatinine, Serum 0.99 mg/dL (0.55-1.02); EST Glomerular Filtration Rate 59 mL/min (>60); Est Glom Filt Rate - Afr Amer 72 mL/min (>60); Globulin 3.8 g/dL (2.2-4.2); Glucose 103 mg/dL (74-106); Potassium 3.6 mmol/L (3.5-5.1); Protein, Total 7.5 g/dL (6.4-8.2); Sodium Level 141 mmol/L (136-145)
== END | disposition home or self-care (01) ==
LOC: MTLAB 14:35
PROVIDERS: PCP Family Medicine; Referring Provider Internal Medicine Rheumatology; Visit Provider Internal Medicine Rheumatology
DX: M06.4 Inflammatory polyarthropathy (principal); Z79.899 Other long term (current) drug therapy
CPT/HCPCS: 36415; 80053; 85025

== ENCOUNTER → 2023-05-27 | Outpatient (CLI) | payer MEDICARE, SELFPAY ==
[2023-05-27 15:56] LABS: Absolute Lymphocyte Count 1.52 X10^3/uL (0.83-4.51); Basophil# 0.07 X10^3/uL; Basophil% 1.3 % (0-1); Eosinophil# 0.12 X10^3/uL; Eosinophils% 2.3 % (0-5); Hemoglobin 13.2 g/dL (12.0-15.0); Lymphocyte # 1.52 X10^3/ul (0.83-4.51); Lymphocyte % 29.2 % (19-41); Mean Corp Hgb Conc 32.2 g/dL (32-36); Mean Corpuscular Hgb 32.9 pg (27.0-32.0); Mean Corpuscular Volume 102.2 fL (81-99); Monocyte% 9.6 % (0-10); NRBC Flagged by Analyzer 0 % (0-5); Neutrophil # 2.99 X10^3/uL (2.7-7.7); Neutrophil % 57.4 % (47-70); Platelet Count 227 K/mm3 (150-450); RBC Distribution Width CV 13.6 % (11.6-14.6); RBC Distribution Width SD 51.8 fl (35.1-43.9); Red Blood Count 4.01 M/mm3 (4.2-5.4); White Blood Count 5.2 K/mm3 (4.4-11.0)
[2023-05-27 16:16] LABS: ALB/GLOB Ratio 1.1 RATIO (0.9-2.4); AST(SGOT) 42 U/L (15-37); Alanine Aminotransfer ALT/SGPT 53 U/L (13-56); Albumin, Serum 3.5 g/dL (3.2-5.0); Alkaline Phosphatase 49 U/L (45-117); Anion Gap 5 (5-15); BUN 22 mg/dL (7-18); Chloride 108 mmol/L (98-107); Creatinine, Serum 0.78 mg/dL (0.55-1.02); EST Glomerular Filtration Rate 77 mL/min (>60); Est Glom Filt Rate - Afr Amer 93 mL/min (>60); Globulin 3.2 g/dL (2.2-4.2); Glucose 105 mg/dL (74-106); Protein, Total 6.7 g/dL (6.4-8.2); Sodium Level 140 mmol/L (136-145)
== END | disposition home or self-care (01) ==
LOC: MTLAB 11:33
PROVIDERS: PCP Family Medicine; Referring Provider Internal Medicine Rheumatology; Visit Provider Internal Medicine Rheumatology
DX: M06.4 Inflammatory polyarthropathy (principal); M35.00 Sjogren syndrome, unspecified; M48.061 Spinal stenosis, lumbar region without neurogenic claudication; Z79.899 Other long term (current) drug therapy
CPT/HCPCS: 36415; 80053; 85025

== ENCOUNTER → 2023-06-26 | Outpatient (CLI) | payer MEDICARE, SELFPAY ==
[2023-06-26 17:50] LABS: Absolute Neutrophil Count 3.3 X10^3/uL (2.0-7.7); Basophil# 0.08 X10^3/uL; Basophil% 1.2 % (0-1); Eosinophil# 0.19 X10^3/uL; Eosinophils% 2.9 % (0-5); Hematocrit 40.8 % (37-47); Hemoglobin 13.1 g/dL (12.0-15.0); Lymphocyte % 34.1 % (19-41); Mean Corp Hgb Conc 32.1 g/dL (32-36); Mean Corpuscular Hgb 34.5 pg (27.0-32.0); Mean Corpuscular Volume 107.4 fL (81-99); Mean Platelet Vol. 10.5 fl (6.2-12.0); Monocyte# 0.64 X10^3/uL; Monocyte% 9.9 % (0-10); NRBC Flagged by Analyzer 0 % (0-5); Neutrophil # 3.34 X10^3/uL (2.7-7.7); Neutrophil % 51.7 % (47-70); Platelet Count 230 K/mm3 (150-450); RBC Distribution Width CV 13.2 % (11.6-14.6); RBC Distribution Width SD 52.5 fl (35.1-43.9); White Blood Count 6.5 K/mm3 (4.4-11.0)
[2023-06-26 18:21] LABS: Vitamin B12 535 pg/mL (211-911)
[2023-06-26 19:03] LABS: ALB/GLOB Ratio 1.2 RATIO (0.9-2.4); AST(SGOT) 20 U/L (15-37); Alanine Aminotransfer ALT/SGPT 31 U/L (13-56); Albumin, Serum 3.6 g/dL (3.2-5.0); Alkaline Phosphatase 44 U/L (45-117); Anion Gap 6 (5-15); BUN 23 mg/dL (7-18); BUN/Creat Ratio 27.4 RATIO (10-20); Calcium,Total 8.2 mg/dL (8.5-10.1); Chloride 110 mmol/L (98-107); Creatinine, Serum 0.84 mg/dL (0.55-1.02); EST Glomerular Filtration Rate 72 mL/min (>60); Est Glom Filt Rate - Afr Amer 87 mL/min (>60); Glucose 113 mg/dL (74-106); Potassium 3.8 mmol/L (3.5-5.1); Protein, Total 6.6 g/dL (6.4-8.2); Sodium Level 141 mmol/L (136-145); Thyroid Stim Hormone (TSH) 2.35 uIU/mL (0.358-3.74)
== END | disposition home or self-care (01) ==
LOC: MTLAB 15:53
PROVIDERS: PCP Family Medicine; Referring Provider Family Medicine; Visit Provider Family Medicine
DX: R53.83 Other fatigue (principal); J44.9 Chronic obstructive pulmonary disease, unspecified; J47.9 Bronchiectasis, uncomplicated; M48.061 Spinal stenosis, lumbar region without neurogenic claudication; Z51.81 Encounter for therapeutic drug level monitoring
CPT/HCPCS: 36415; 80053; 82607; 82728; 82746; 84443; 85025

== ENCOUNTER → 2023-06-27 | Outpatient (CLI) | payer MEDICARE, SELFPAY ==
[2023-06-27 12:29] LABS: Platelet Count 241 K/mm3 (150-450); RET-HE 37.9 pg (30-35); Reticulocyte Count 3.51 % (0.5-1.5)
[2023-06-27 13:00] LABS: Ferritin 32 ng/mL (8-252); Free T3 2.7 pg/mL (2.18-3.98); Iron Binding Capacity,Total 285 ug/dL (250-450); T4 Free Direct 0.83 ng/dL (0.76-1.46)
[2023-06-30 15:08] LABS: PROEL- A/G Ratio 1.8 (0.7-1.7); PROEL- Albumin 4.1 g/dL (2.9-4.4); PROEL- Alpha-1 Globulin 0.2 g/dL (0.0-0.4); PROEL- Alpha-2 Globulin 0.6 g/dL (0.4-1.0); PROEL- Beta Globulin 0.9 g/dL (0.7-1.3); PROEL- Gamma Globulin 0.7 g/dL (0.4-1.8); PROEL- Globulin, Total 2.3 g/dL (2.2-3.9); PROEL- TOTAL PROTEIN 6.4 g/dL (6.0-8.5); PROEL-M-Spike Not Observed g/dL (Not Observed)
== END | disposition home or self-care (01) ==
LOC: MTLAB 11:16
PROVIDERS: PCP Family Medicine; Referring Provider Family Medicine; Visit Provider Family Medicine
DX: R79.89 Other specified abnormal findings of blood chemistry (principal); D75.89 Other specified diseases of blood and blood-forming organs
CPT/HCPCS: 36415; 82728; 83550; 84165; 84439; 84481; 85045

== ENCOUNTER → 2023-07-22 | Outpatient (CLI) | payer MEDICARE, SELFPAY ==
[2023-07-22 15:44] LABS: Absolute Lymphocyte Count 2.04 X10^3/uL (0.83-4.51); Absolute Neutrophil Count 3.3 X10^3/uL (2.0-7.7); Basophil# 0.05 X10^3/uL; Basophil% 0.8 % (0-1); Eosinophils% 1.6 % (0-5); Hematocrit 44.4 % (37-47); Hemoglobin 14.6 g/dL (12.0-15.0); Lymphocyte # 2.04 X10^3/ul (0.83-4.51); Lymphocyte % 32.9 % (19-41); Mean Corp Hgb Conc 32.9 g/dL (32-36); Mean Corpuscular Hgb 34.8 pg (27.0-32.0); Mean Platelet Vol. 10.5 fl (6.2-12.0); Monocyte# 0.68 X10^3/uL; NRBC Flagged by Analyzer 0 % (0-5); Neutrophil # 3.31 X10^3/uL (2.7-7.7); Neutrophil % 53.2 % (47-70); Platelet Count 295 K/mm3 (150-450); RBC Distribution Width CV 13.2 % (11.6-14.6); RBC Distribution Width SD 51.9 fl (35.1-43.9); Red Blood Count 4.19 M/mm3 (4.2-5.4); White Blood Count 6.2 K/mm3 (4.4-11.0)
[2023-07-22 16:43] LABS: ALB/GLOB Ratio 1.1 RATIO (0.9-2.4); AST(SGOT) 21 U/L (15-37); Alanine Aminotransfer ALT/SGPT 32 U/L (13-56); Albumin, Serum 3.7 g/dL (3.2-5.0); Alkaline Phosphatase 47 U/L (45-117); Anion Gap 8 (5-15); BUN 20 mg/dL (7-18); Calcium,Total 9.1 mg/dL (8.5-10.1); Chloride 105 mmol/L (98-107); Creatinine, Serum 0.83 mg/dL (0.55-1.02); EST Glomerular Filtration Rate 72 mL/min (>60); Est Glom Filt Rate - Afr Amer 87 mL/min (>60); Globulin 3.4 g/dL (2.2-4.2); Glucose 96 mg/dL (74-106); Protein, Total 7.1 g/dL (6.4-8.2); Sodium Level 141 mmol/L (136-145)
== END | disposition home or self-care (01) ==
LOC: MTLAB 12:58
PROVIDERS: PCP Family Medicine; Referring Provider Internal Medicine Rheumatology; Visit Provider Internal Medicine Rheumatology
DX: M06.4 Inflammatory polyarthropathy (principal); Z79.899 Other long term (current) drug therapy
CPT/HCPCS: 36415; 80053; 85025

== ENCOUNTER → 2023-08-04 | Outpatient (CLI) | payer MEDICARE, SELFPAY ==
--- NOTE | 2023-08-04 14:12 | RAD_ITS ---
STUDY: X-RAY - UNILATERAL RIBS ( RIGHT ) REASON FOR EXAM: Female, 68 years old. Right anterior lateral rib pain TECHNIQUE: 4 views of the right ribs. COMPARISON: Chest radiographs dated 12/26/2020. FINDINGS: There is a fracture of the right seventh rib. There is an old healed fracture of the right eighth rib. The visualized lung is clear and expanded. RAD/Ribs Unil 2V No CXR IMPRESSION: Fracture of the right seventh rib. Old healed fracture of the right eighth rib. Electronically Signed: Fuad Sarkar MD at 15:24 EDT ,
== END | disposition home or self-care (01) ==
PROVIDERS: PCP Family Medicine; Referring Provider Family Medicine; Visit Provider Family Medicine
DX: R07.81 Pleurodynia (principal)
CPT/HCPCS: 71100

== ENCOUNTER → 2023-08-26 | Outpatient (CLI) | payer MEDICARE, SELFPAY ==
--- NOTE | 2023-08-26 11:01 | RAD_ITS ---
STUDY: X-RAY - LEFT ANKLE REASON FOR EXAM: Female, 68 years old. Left lateral ankle pain following injury. TECHNIQUE: 3 view(s) of the ankle. COMPARISON: None. FINDINGS: Normal visualized distal tibia and fibula. Avulsion fracture of the lateral malleolus. Normal tibiotalar articulation and ankle mortise. Calcaneal spurs. The visualized subtalar, talonavicular, calcaneocuboid and tarsal articulations are normal. Soft tissue swelling. RAD/Ankle min 3 Views IMPRESSION: Avulsion fracture of the lateral malleolus with overlying soft tissue swelling. Electronically Signed: Aidan Viramontes MD at 12:25 EDT ,
--- NOTE | 2023-08-26 11:01 | RAD_ITS ---
STUDY: X-RAY - LEFT FOOT CLINICAL: Female, 68 years old. Fall. Pain. TECHNIQUE: 3 view(s) of the foot. COMPARISON: None. FINDINGS: Osteopenia. Inferior calcaneal spur. Mild arthrosis of the midfoot. Postsurgical changes of hallux valgus repair of the first distal metatarsal with deformity and cancellus screw. Fusion of the DIP joint of the first toe. Moderate arthrosis of the MTP and IP joints. Ossification of the distal Achilles tendon. RAD/Foot min 3 Views IMPRESSION: Osteoarthritic changes, postsurgical changes, inferior calcaneal spur and ossification of the distal Achilles tendon. No acute abnormality identified. Electronically Signed: Jr Vasquez MD at 11:32 EDT ,
== END | disposition home or self-care (01) ==
LOC: MTRAD 11:01
PROVIDERS: PCP Family Medicine; Referring Provider Family Medicine; Visit Provider Family Medicine
DX: M79.672 Pain in left foot (principal); M25.572 Pain in left ankle and joints of left foot; W19.XXXA Unspecified fall, initial encounter
CPT/HCPCS: 73610; 73630

== ENCOUNTER → 2023-10-16 | Outpatient (CLI) | payer MEDICARE, SELFPAY ==
[2023-10-16 17:48] LABS: Absolute Neutrophil Count 5.8 X10^3/uL (2.0-7.7); Basophil# 0.05 X10^3/uL; Basophil% 0.7 % (0-1); Eosinophil# 0.02 X10^3/uL; Eosinophils% 0.3 % (0-5); Hematocrit 36.4 % (37-47); Lymphocyte % 14.7 % (19-41); Mean Corpuscular Hgb 35.6 pg (27.0-32.0); Mean Platelet Vol. 10.7 fl (6.2-12.0); Monocyte# 0.49 X10^3/uL; Monocyte% 6.6 % (0-10); NRBC Flagged by Analyzer 0 % (0-5); Neutrophil # 5.79 X10^3/uL (2.7-7.7); Neutrophil % 77.4 % (47-70); Platelet Count 329 K/mm3 (150-450); RBC Distribution Width CV 13.3 % (11.6-14.6); RBC Distribution Width SD 52.9 fl (35.1-43.9); Red Blood Count 3.37 M/mm3 (4.2-5.4); White Blood Count 7.5 K/mm3 (4.4-11.0)
[2023-10-16 18:15] LABS: ALB/GLOB Ratio 1.5 RATIO (0.9-2.4); AST(SGOT) 22 U/L (15-37); Alanine Aminotransfer ALT/SGPT 22 U/L (13-56); Albumin, Serum 4.3 g/dL (3.2-5.0); Alkaline Phosphatase 44 U/L (45-117); Anion Gap 7 (5-15); BUN 24 mg/dL (7-18); BUN/Creat Ratio 22.9 RATIO (10-20); Chloride 103 mmol/L (98-107); Creatinine, Serum 1.05 mg/dL (0.55-1.02); EST Glomerular Filtration Rate 55 mL/min (>60); Est Glom Filt Rate - Afr Amer 67 mL/min (>60); Globulin 2.9 g/dL (2.2-4.2); Glucose 113 mg/dL (74-106); Potassium 3.9 mmol/L (3.5-5.1); Protein, Total 7.2 g/dL (6.4-8.2); Sodium Level 136 mmol/L (136-145)
== END | disposition home or self-care (01) ==
LOC: MTLAB 14:52
PROVIDERS: PCP Family Medicine; Referring Provider Internal Medicine Rheumatology; Visit Provider Internal Medicine Rheumatology
DX: M06.4 Inflammatory polyarthropathy (principal); M35.00 Sjogren syndrome, unspecified; Z79.899 Other long term (current) drug therapy
CPT/HCPCS: 36415; 80053; 85025

== ENCOUNTER → 2023-12-15 | Outpatient (CLI) | payer MEDICARE, SELFPAY ==
[2023-12-15 17:46] LABS: Absolute Lymphocyte Count 1.07 X10^3/uL (0.83-4.51); Absolute Neutrophil Count 6.9 X10^3/uL (2.0-7.7); Basophil# 0.04 X10^3/uL; Basophil% 0.5 % (0-1); Eosinophil# 0.02 X10^3/uL; Eosinophils% 0.2 % (0-5); Hematocrit 40.5 % (37-47); Lymphocyte # 1.07 X10^3/ul (0.83-4.51); Lymphocyte % 12.8 % (19-41); Mean Corp Hgb Conc 32.1 g/dL (32-36); Mean Corpuscular Hgb 34.2 pg (27.0-32.0); Mean Corpuscular Volume 106.6 fL (81-99); Monocyte# 0.29 X10^3/uL; Monocyte% 3.5 % (0-10); NRBC Flagged by Analyzer 0 % (0-5); Neutrophil # 6.93 X10^3/uL (2.7-7.7); Neutrophil % 82.8 % (47-70); Platelet Count 262 K/mm3 (150-450); RBC Distribution Width CV 12.9 % (11.6-14.6); RBC Distribution Width SD 50.3 fl (35.1-43.9); White Blood Count 8.4 K/mm3 (4.4-11.0)
[2023-12-15 18:04] LABS: ALB/GLOB Ratio 1.2 RATIO (0.9-2.4); AST(SGOT) 34 U/L (15-37); Alanine Aminotransfer ALT/SGPT 43 U/L (13-56); Albumin, Serum 3.9 g/dL (3.2-5.0); Alkaline Phosphatase 51 U/L (45-117); Anion Gap 7 (5-15); BUN 15 mg/dL (7-18); BUN/Creat Ratio 16.3 RATIO (10-20); Calcium,Total 9.4 mg/dL (8.5-10.1); Chloride 107 mmol/L (98-107); Creatinine, Serum 0.92 mg/dL (0.55-1.02); EST Glomerular Filtration Rate 64 mL/min (>60); Est Glom Filt Rate - Afr Amer 78 mL/min (>60); Globulin 3.2 g/dL (2.2-4.2); Glucose 92 mg/dL (74-106); Potassium 3.8 mmol/L (3.5-5.1); Protein, Total 7.1 g/dL (6.4-8.2); Sodium Level 138 mmol/L (136-145)
== END | disposition home or self-care (01) ==
LOC: MTLAB 14:11
PROVIDERS: PCP Family Medicine; Referring Provider Internal Medicine Rheumatology; Visit Provider Internal Medicine Rheumatology
DX: M06.4 Inflammatory polyarthropathy (principal); Z79.899 Other long term (current) drug therapy
CPT/HCPCS: 36415; 80053; 85025

== ENCOUNTER → 2024-03-01 | Outpatient (CLI) | payer MEDICARE, SELFPAY ==
[2024-03-01 18:02] LABS: Color, Urine Brown (Yellow); Glucose, Dipstick Normal (Normal); Ketone-Dipstick Negative (Negative); Leukocyte Esterase-Dipstick 100 /ul (Negative); Nitrite-Dipstick Positive (Negative); Occult Blood-Urine 10 /ul (Negative); Protein-Dipstick 30 mg/dl (Negative); Specific Gravity, Urine 1.015 (1.002-1.030); Urine Clarity Cloudy (Clear); Urine Urobilinogen 12 mg/dl (Normal); Urine pH 6.5 (5.0 - 8.0)
[2024-03-01 18:15] LABS: Urine Bilirubin Dipstick 6 mg/dL (Negative)
--- OUTSIDE RECORDS SUMMARY | 2024-03-01 20:00 | XMS RPT_ITS | CCD ---
Author Organization [facility] Care Team Providers Care Pit Hoist Operator Name Role Phone Rubens Terrazas Yesi Unavailable Woody Alejandro Daryn Unavailable Tizzano, Dav P Unavailable Unavailable No Doctor Assigned, Nodr Unavailable Unavail able Tizzano, Dav P Unavailable Unavailable Tizzano, Dav P Unavailable Unavailable No Doctor Assigned, Nodr Unavailable Unavail able Tizzano, Dav P Unavailable Unavailable Tizzano, Dav P Unavailable Unavailable No Doctor Assigned, Nodr Unavailable Unavail able Tizzano, Dav P Unavailable Unavailable No Doctor Assigned, Nodr Unavailable Unavail able Tizzano, Dav P Unavailable Unavailable Tizzano, Dav P Unavailable Unavailable No Doctor Assigned, Nodr Unavailable Unavail able Tizzano, Dav P Unavailable Unavailable Tizzano, Dav P Unavailable Unavailable No Doctor Assigned, Nodr Unavailable Unavail able Tizzano, Dav P Unavailable Unavailable No Doctor Assigned, Nodr Unavailable Unavail able Rubens Terrazas Unavailable MANDY ASHER Primary Care Unavailable TASHIA GRIFFIN Attending Unavailable TASHIA GRIFFIN Admitting Unavailable JALYN MANDY A Primary Care Unavailable CROW RICO JR. Referring Unavailable TASHIA GRIFFIN Attending Unavailable MANDY ASHER A Primary Care Unavailable TASHIA GRIFFIN Referring Unavailable TASHIA GRIFFIN Attending Unavailable JALYN MANDY A Primary Care Unavailable TASHIA GRIFFIN Referring Unavailable TASHIA GRIFFIN Attending Unavailable JALYN MANDY A Primary Care Unavailable TASHIA GRIFFIN Attending Unavailable TASHIA GRIFFIN Referring Unavailable JALYN MANDY A Primary Care Unavailable TASHIA GRIFFIN Attending Unavailable TASHIA GRIFFIN Referring Unavailable JALYN MANDY A Primary Care Unavailable JALYN, MANDY A Primary Care Unavailable MARA HUMPHRIES Attending Unavailable MARA HUMPHRIES Referring Unavailable ASHER, MANDY A Primary Care Unavailable YIN BRIDGES Attending Unavailable TASHIA GRIFFIN Referring Unavailable TASHIA GRIFFIN Attending Unavailable TASHIA GRIFFIN Referring Unavailable ASHER, MANDY A Primary Care Unavailable ASHER, MANDY A Primary Care Unavailable ASHER, MANDY A Primary Care Unavailable ASHER, MANDY A Primary Care Unavailable ASHER, MANDY A Primary Care Unavailable Mandy Asher MD Primary Care Provider [phone] MELODY MAO Referring Unavailable ASHER, MANDY A Primary Care Unavailable ASHER, MANDY A Primary Care Unavailable MELODY MAO Referring Unavailable ASHER, MANDY A Primary Care Unavailable MELODY MAO Referring Unavailable ASHER, MANDY A Primary Care Unavailable MELODY MAO Attending Unavailable ASHER, MANDY A Primary Care Unavailable Allergies Allergy Classification Reported Allergen(s) Allergy Type Date of Onset Reaction(s) Facility (3 sources) bacitracin drug allergy 08-28-19 14 [facility] Work Phone: (3 sources) dexlansoprazole drug allergy 07-14-19 15 swelling and itching [facility] Work Phone: (3 sources) lidocaine drug allergy 07-14-19 15 rapid pulse [facility] Work Phone: (3 sources) loratadine drug allergy 07-14-19 15 can't sleep [facility] Work Phone: (3 sources) morphine drug allergy 07-14-19 15 nausea, vomiting [facility] Work Phone: (3 sources) traMADol drug allergy 08-01-19 17 fatigue [facility] Work Phone: (1 source) Methadone; Translations: [facility]ad[facility]] [facility] Morphine; Translations: [morphine] Drug Allergy 02-06-20 16 Vomiting [facility] Repository (1 source) Sulfamethoxazole; Translations: [facility]sulfamethoxazole] [facility] traMADol; Translations: [traMADol] Drug Allergy 02-06-20 16 Vomiting [facility] Repository (1 source) No Known Medication Allergies; Translations: [No Known Medication Allergies] Propensity to adverse reactions to drug (disorder) [facility] Repository (5 sources) Loratadine; Translations: [LORATADINE] Drug Allergy 07-13-19 06 [facility] (5 sources) Procaine; Translations: [PROCAINE HCL] Drug Allergy 03-14-20 14 Other: See Comments [facility] (5 sources) Sulfamethoxazole / Trimethoprim; Translations: [SULFAMETHOXAZOLE-T RIMETHOPRIM] Drug Allergy 07-13-19 06 GI Upset [facility] Medications Current Medications Medication Drug Class(es) Dates Sig (Normalized) Sig (Original) [id number] 200 actuat albuterol 0.09 mg/actuat metered dose inhaler (10 sources) beta2-Adrenergic Agonist Start: 02-17-2024 take 2 puff(s) by inhalation every four hours as needed albuterol HFA (PROVENTIL HFA, VENTOLIN HFA) 90 mcg/actuation inhaler Inhale 2 Puffs as instructed every 4 hours as needed. 3 Each 2 02/17/2024 Active Start: 08-27-2013 End: 07-13-2014 VENTOLIN HFA 108 (90 Base) M CG/ACT AERS as directed ALBUTEROL SULFATE [id number] Gerardo Palomino Start: 08-27-2013 VENTOLIN HFA 1 08 (90 Base) MCG/ACT AERS as directed ALBUTEROL SULFATE [id number] Gerardo Palomino Start: 08-27-2013 End: 07-13-2014 VENTOLIN HFA 108 (90 Base) M CG/ACT AERS as directed ALBUTEROL SULFATE [id number] Bing Gorman albuterol HFA 90 mcg/actuation HFA Inhale 2 Puffs as instructed as needed. Active azithromycin 250 mg oral tablet (2 sources) Macrolide Antimicrobial Start: 02-17-2024 azithromycin (ZITHROMAX) 250 mg tablet Take one on Mon, Wed, Fri 36 tablet 2 02/17/2024 Active baclofen 10 mg oral tablet (4 sources) gamma-Aminobutyric Acid-ergic Agonist take 1 tablet by mouth once daily at bedtime baclofen (LIORESAL) 10 mg tablet Take 10 mg by mouth daily at bedtime. Active budesonide / formoterol (5 sources) Corticosteroid, beta2-Adrenergic Agonist Start: 02-17-2024 take 2 puff(s) by inhalation twice daily budesonide-formot alberto (SYMBICORT) 160-4.5 mcg/actuation inhaler Inhale 2 Puffs as instructed two times a day. 3 Each 2 02/17/2024 Active Start: 02-14-2015 take 2 puff(s) by in halation twice daily SYMBICORT 160-4.5 MCG/ACT AERO 2 puffs INH Twice daily BUDESONIDE-FORMOTEROL FUMARATE [id number] Rubens Terrazas Start: 02-14-2015 take 2 puff(s) by in halation twice daily SYMBICORT 160-4.5 MCG/ACT AERO 2 puffs INH Twice daily BUDESONIDE-FORMOTEROL FUMARATE [id number] Rubens Terrazas celecoxib 200 mg oral capsule (4 sources) Nonsteroidal Anti-inflammatory Drug Start: 04-18-2016 celecoxib (CELEBREX) 200 mg capsule 04/18/2016 Active chlorpheniramine maleate 4 mg oral tablet (2 sources) Histamine-1 Receptor Antagonist take 1 tablet by mouth every six hours as needed chlorpheniramine (ALLER-CHLOR) 4 mg tablet Take 4 mg by mouth every 6 hours as needed. Active cholecalciferol 2500 unt / folic acid 1 mg oral tablet (2 sources) Vitamin D take 1 tablet by mouth once daily vitamin D3-folic acid 2,500 unit- 1 mg tab Take 1 tablet by mouth once daily. Active cycloSPORINE 0.5 mg/ml ophthalmic suspension (2 sources) Calcineurin Inhibitor Immunosuppressant take 0.05 drop(s) into the eye(s) once daily cycloSPORINE (RESTASIS MULTIDOSE) 0.05 % drop Use 1 Drop in both eyes once daily. Active DAILY MULTIVITAMIN ORAL (4 sources) DAILY MULTIVITAM IN ORAL Take by mouth once daily. Active DULoxetine 60 mg delayed release oral capsule (2 sources) Serotonin and Norepinephrine Reuptake Inhibitor take 1 capsule by mouth once daily DULoxetine (CYMBALTA) 60 mg capsule Take 60 mg by mouth once daily. Active estradiol 0.1 mg/ml vaginal cream (4 sources) Estrogen Start: 03-20-2015 estradiol (ESTRACE) 0.01 % (0.1 mg/gram) vaginal cream Use small amount in vaginal opening twice a week 1 Tube 2 03/20/2015 Active gabapentin 300 mg oral capsule (16 sources) Anti-epileptic Agent Start: 03-11-2016 gabapentin (NEURONTIN) 300 mg capsule 300am Am , 300 mg at 1500, 600 mg at bedtime 03/11/2016 Active Start: 08-27-2013 End: 02-14-2015 GABAPENTIN 100 MG CAPS as di rected GABAPENTIN [id number] Gerardo Palomino GABAPENTIN CAPS GABAPENTIN CAPS [id number] Rubens Terrazas hydroxychloroquine sulfate 200 mg oral tablet (2 sources) Antimalarial, Antirheumatic Agent take 1 tablet by mouth once daily hydrOXYchloroQUINE (PLAQUENIL) 200 mg tablet Take 200 mg by mouth once daily. Active hydrOXYzine hydrochloride 25 mg oral tablet (7 sources) Antihistamine take 1 tablet by mouth every eight hours as needed hydrOXYzine HCl (ATARAX) 25 mg tablet Take 25 mg by mouth every 8 hours as needed. Active take 0.5-1 tablets b y mouth every eight hours as needed for anxiety HYDROXYZINE HCL 25 MG/ML SOLN 1/2 to 1 tablet by mouth every 8 hours as needed for anxiety or allergies HYDROXYZINE HCL [id number] Bing Gorman ipratropium bromide 0.042 mg/actuat metered dose nasal spray (11 sources) Anticholinergic Start: 02-17-2024 ipratropium br omide (ATROVENT) 42 mcg (0.06 %) nasal spray Use 1 [place] in the nose two times a day. 15 mL 3 02/17/2024 Active Start: 08-27-2013 IPRATROPIUM BR OMIDE 0.03 % SOLN as directed IPRATROPIUM BROMIDE [id number] Gerardo Palomino End: 02-17-2024 Ipratropium [place] 0.03 % n mame spray Use 2 Sprays in the nose every 12 hours. 02/17/2024 Discontinued IPRATROPIUM BROM GAGE 0.03 % SOLN 1-2 nasal every 6 hours as needed for congestion and prior to coming home from work. IPRATROPIUM BROMIDE [id number] Bing Gorman K+Akjy-Mtwxesrb-Ufsh-ManPoly (ORAMAGICRX) mwsh (4 sources) K+Sorb-Maltodex- Aloe-ManPoly (ORAMAGICRX) mwsh Use as instructed three times daily. Active levocetirizine dihydrochlori de 5 mg oral tablet (2 sources) Histamine-1 Receptor Antagonist take 1 tablet by mouth once daily levocetirizine 5 mg tablet Take 5 mg by mouth once daily. Active magnesium oxide 400 mg oral tablet (2 sources) take 1 tablet by mouth once daily magnesium oxide 400 mg magnesium tab Take 1 tablet by mouth once daily. Active miSOPROStol 0.1 mg oral tabl et (2 sources) Prostaglandin E1 Analog take 1 tablet by mouth four times daily miSOPROStol (CYTOTEC) 100 mcg tablet Take 100 mcg by mouth four times daily. Active naloxone 4 mg/actuation nasa l spray (NARCAN) (2 sources) naloxone 4 mg/ac tuation nasal spray (NARCAN) 1 [place] by nasal (alternating) route as needed for known or suspected opioid overdose. Use 1 spray in one nostril as needed for overdose. May repeat every 2 to 3 min in alternating nostrils until medical assistance is available Active OTC NUTRITIONAL SUPPLEMENT (4 sources) take 1 tablet by mouth once daily OTC NUTRITIONAL SUPPLEMENT Take 1 tablet by mouth once daily. Biotin Active take 1 tablet by mouth once yvon y OTC NUTRITIONAL SUPPLEMENT Take 1 tablet by mouth once daily. [place] Active oxyCODONE hydrochloride 5 mg oral tablet (4 sources) Opioid Agonist Start: 02-29-2016 oxyCODONE imme diate release (PERCOLONE) 5 mg immediate release tablet 02/29/2016 Active OXYGEN, HOME THERAPY, (2 sources) OXYGEN, HOME THE RAPY, Inhale 3 L/min as instructed as directed. Active PHENYLEPHRINE/HYDROCODO NE/CP (HYDROCODONE CP ORAL) (4 sources) PHENYLEPHRINE/HY DROCOD ONE/CP (HYDROCODONE CP ORAL) Take by mouth. 5mg-no acetaminophen every 3-6 hours prn pain Active potassium citrate 5 meq extended release oral tablet (12 sources) Metabolic Alkalinizer Start: 03-04-2016 potassium citrate ER (UROCIT-K) 5 mEq (540 mg) TbER 03/04/2016 Active Start: 08-27-2013 End: 02-14-2015 take 1 tablet by mouth once daily POTASSIUM CITRATE ER 5 MEQ (540 MG) CR-TABS One tablet by mouth daily POTASSIUM CITRATE [id number] Anna Xiao take 10 mEq by mouth once daily potassium citrate ER (UROCIT-K) 10 mEq (1,080 mg) Take 2,160 mg by mouth once daily. Active pseudoephedrine (7 sources) alpha-Adrenergic Agonist PSEUDOE PHEDRINE HCL (SUDAFED 12 HOUR ORAL) Take by mouth. Active SUDAFED 12 HOUR [id number] PSEUDOEPHEDRINE HCL [id number] Rubens Terrazas raNITIdine 150 mg oral tablet (4 sources) Histamine-2 Receptor Antagonist Start: 03-10-2016 ranitidine (ZANTAC) 150 mg tablet 03/10/2016 Active sulfaSALAzine 500 mg oral tablet (2 sources) Aminosalicylate take 1 tablet by mouth three times daily sulfaSALAzine (AZULFIDINE) 500 mg tablet Take 500 mg by mouth three times a day. Active valACYclovir 500 mg oral tablet (7 sources) Herpesvirus Nucleoside Analog DNA Polymerase Inhibitor, Herpes Simplex Virus Nucleoside Analog DNA Polymerase Inhibitor, Herpes Zoster Virus Nucleoside Analog DNA Polymerase Inhibitor take 1 tablet by mouth once daily valACYclovir (VALTREX) 500 mg tablet Take 500 mg by mouth once daily. Active VALACYCLOVIR HCL 500 MG TABS one tablet daily for suppression; 2 tablets every 8 H x 5 days for outbreak VALACYCLOVIR HCL [id number] Bing Gorman vitamin B complex vit C no.3 (VITAMIN B COMP AND C NO.3 ORAL) (2 sources) take 1 tablet by sandra th once daily vitamin B complex vit C no.3 (VITAMIN B COMP AND C NO.3 ORAL) Take 1 tablet by mouth once daily. Active Completed/Discontinued Medications Medication Drug Class(es) Dates Sig (Normalized) Sig (Original) acetaminophen 500 mg oral tablet (3 sources) Start: 01-30-2016 take 2 tablets by mouth every six hours for pain TYLENOL EXTRA STRENGTH 500 MG TABS 2 tabs po q6h for root canal pain ACETAMINOPHEN [id number] Anna Chi LPN acetaminophen 325 mg / HYDROcodone bitartrate 5 mg oral tablet (6 sources) Opioid Agonist Start: 08-27-2013 End: 07-13-2014 HYDROCODONE-ACETAMI NOPHEN 5-325 MG TABS 1-2 at bedtime HYDROCODONE-ACETAMI NOPHEN [id number] Bing Gorman acetaminophen 325 mg / oxyCODONE hydrochloride 5 mg oral tablet (7 sources) Opioid Agonist Start: 07-31-2016 take 1 tablet by mouth twice daily OXYCODONE-ACETAMINO PHEN 5-325 MG TABS One tablet by mouth twice daily OXYCODONE-ACETAMINO PHEN [id number] Anna Padilla Start: 04-10-2016 take 1 tablet by sandra th every four hours as needed oxyCODONE-acetaminophen (PERCOCET) 5-325 mg tablet Take 1 tablet by mouth every 4 hours as needed. 10 tablet 0 04/10/2016 Active acyclovir 400 mg oral tablet (3 sources) Herpesvirus Nucleoside Analog DNA Polymerase Inhibitor, Herpes Simplex Virus Nucleoside Analog DNA Polymerase Inhibitor, Herpes Zoster Virus Nucleoside Analog DNA Polymerase Inhibitor Start: 08-27-2013 take 1 tablet by mouth once daily ACYCLOVIR 400 MG TABS One tablet by mouth daily ACYCLOVIR [id number] Gerardo Palomino 120 actuat albuterol 0.1 mg/actuat / ipratropium bromide 0.02 mg/actuat metered dose inhaler (16 sources) Anticholinergic, beta2-Adrenergic Agonist Start: 10-26-2015 take 20-100 ug by inhalation every six hours as needed COMBIVENT RESPIMAT 20-100 MCG/ACT AERS 2 puffs INH q6 hours PRN wheezing IPRATROPIUM-ALBUT ALBERTO [id number] Rubens Terrazas Start: 10-26-2015 take 2 puff(s) by in halation every six hours as needed for wheezing COMBIVENT RESPIMAT 20-100 MCG/ACT AERS 2 puffs INH q6 hours PRN wheezing IPRATROPIUM-ALBUTEROL [id number] Rubens Terrazas Start: 08-27-2013 COMBIVENT RESP IMAT 20-100 MCG/ACT AERS as directed IPRATROPIUM-ALBUTEROL [id number] Gerardo Palomino Start: 08-27-2013 COMBIVENT RESP IMAT 20-100 MCG/ACT AERS as directed IPRATROPIUM-ALBUTEROL [id number] Gerardo Palomino ipratropium-albu terol (COMBIVENT RESPIMAT) 20-100 mcg/actuation mist Inhale as instructed as needed. Active End: 02-14-2015 take 20-100 ug by inhalation every six hours COMBIVENT RESPIMAT 20-100 MCG/ACT AERS 1-2 aerosol solm inhalation every 6 hours for cough, wheezing, illness. IPRATROPIUM-ALBUTEROL [id number] Anna Xiao COMBIVENT RESPIM AT 20-100 MCG/ACT AERS 1-2 aerosol solm inhalation every 6 hours for cough, wheezing, illness. IPRATROPIUM-ALBUTEROL [id number] Bing Gorman End: 02-14-2015 COMBIVENT RESPIMAT 20-100 MC G/ACT AERS 1-2 aerosol solm inhalation every 6 hours for cough, wheezing, illness. IPRATROPIUM-ALBUTEROL [id number] Anna Xiao alendronic acid 70 mg oral tablet (7 sources) Bisphosphonate Start: 07-31-2016 take 1 tablet by mouth every week FOSAMAX 70 MG TABS 1 TAB ORAL, ONCE PER WEEK ALENDRONATE SODIUM [id number] Anna N Valerie ascorbic acid 500 mg oral tablet (6 sources) Start: 08-27-2013 End: 07-26-2015 take 1 tablet by mouth twice daily ASCORBIC ACID 500 MG TABS One tablet by mouth twice daily ASCORBIC ACID [id number] Codie Centeno LPN aspirin 81 mg delayed release oral tablet (10 sources) Nonsteroidal Anti-inflammatory Drug Start: 07-31-2016 take 1 tablet by mouth once daily ASPIRIN 81 MG TBEC One tablet by mouth daily ASPIRIN [id number] Anna N Padilla Start: 08-27-2013 take 1 tablet by sandra once daily ASPIRIN 81 MG TABS One tablet by mouth daily ASPIRIN [id number] Gerardo Dante Candelario Start: 08-27-2013 take 1 tablet by sandra th once daily ASPIRIN 81 MG TABS One tablet by mouth daily ASPIRIN [id number] Gerardo Palomino B COMPLEX VITAMINS (4 sources) B COMPLEX-B12 TA BS B COMPLEX VITAMINS [id number] Rubens Terrazas End: 01-30-2016 B COMPLEX-B12 TABS 7 B COMPLEX VITAMINS [id number] Anna Amita Chi SATELLITE INSTALLATION TECHNICIAN B COMPLEX VITAMINS (2 sources) B COMPLEX-B12 TA BS B COMPLEX VITAMINS [id number] Rubens Terrazas End: 01-30-2016 B COMPLEX-B12 TABS 7 B COMPLEX VITAMINS [id number] Anna Amita Chi SATELLITE INSTALLATION TECHNICIAN BUDESONIDE/FORMOTEROL FUMARATE (SYMBICORT INHALATION) (3 sources) End: 02-17-2024 BUDESONIDE/FORMOTEROL FUMARATE (SYMBICORT INHALATION) Inhale as instructed. 02/17/2024 Discontinued cholecalciferol 1000 unt oral tablet (7 sources) Vitamin D Start: 07-31-2016 take 1 tablet by mouth once daily VITAMIN D3 1000 UNIT TABS One tablet by mouth daily CHOLECALCIFEROL [id number] Anna Padilla ciprofloxacin 250 mg oral tablet (6 sources) Quinolone Antimicrobial End: 01-30-2016 CIPRO TABS CIPROFLOXACIN HCL TABS [id number] Rubens Terrazas CIPRO TABS CIPRO FLOXACIN HCL TABS [id number] Rubens Terrazas End: 01-30-2016 CIPRO TABS CIPROF LOXACIN HCL TABS 25248963715 Anna Amita Chi SATELLITE INSTALLATION TECHNICIAN clotrimazole 10 mg/ml topical cream (6 sources) Azole Antifungal End: 07-26-2015 CLOTRIMAZOLE 1 % CREA external around lips at bedtime and in morning CLOTRIMAZOLE [id number] Bing Gorman COD LIVER OIL CAPS (6 sources) COD LIVER OIL CA PS COD LIVER OIL CAPS [id number] Rubens Terrazas End: 01-30-2016 COD LIVER OIL CAPS 7 COD LIVER OIL CAPS [id number] Anna Amita Chi SATELLITE INSTALLATION TECHNICIAN CYCLOBENZAPRINE HCL TABS (12 sources) Muscle Relaxant End: 02-14-2015 take 1 tablet by mouth three times daily CYCLOBENZAPRINE HCL 10 MG TABS One tablet by mouth three times daily CYCLOBENZAPRINE HCL [id number] Anna Xiao CYCLOBENZAPRINE HCL TABS CYCLOBENZAPRINE HCL TABS [id number] Rubens Terrazas End: 01-30-2016 CYCLOBENZAPRINE HCL TABS 201 10/11/26 CYCLOBENZAPRINE HCL TABS [id number] Anna Levi Chi SATELLITE INSTALLATION TECHNICIAN 1 ml denosumab 60 mg/ml prefilled syringe (7 sources) RANK Ligand Inhibitor Start: 07-31-2016 PROLIA 6 0 MG/ML SOLN in ofc twice yrly DENOSUMAB [id number] Anna Mcclellandy Start: 07-31-2016 PROLIA 60 MG/M L SOLN in ofc twice yrly DENOSUMAB [id number] Annarodríguez Padilla denosumab (PROLI A) 60 mg/mL syrg Inject 60 mg subcutaneously one time only. Twice yearly Active diclofenac sodium 75 mg delayed release oral tablet (3 sources) Nonsteroidal Anti-inflammatory Drug Start: 07-31-2016 take 1 tablet by mouth twice daily DICLOFENAC SODIUM 75 MG TBEC One tablet by mouth twice daily DICLOFENAC SODIUM 71355065211 Anna Adrian Padilla esomeprazole 40 mg delayed release oral capsule (11 sources) Proton Pump Inhibitor Start: 03-03-2016 End: 02-17-2024 esomeprazole (NEXIUM) 40 mg capsule 03/03/2016 02/17/2024 Discontinued take 1 capsule by [facility] once daily in the morning esomeprazole (NEXIUM) 20 mg capsule Take 20 mg by mouth daily at 6 am. Active take 1 tablet by mouth once yvon y NEXIUM 40 MG PACK One tablet by mouth daily ESOMEPRAZOLE MAGNESIUM [id number] Bing Gorman take 1 tablet by mouth once yvon y NEXIUM 40 MG PACK One tablet by mouth daily ESOMEPRAZOLE MAGNESIUM [id number] Bing Gorman fluticasone propionate 0.05 mg/actuat metered dose nasal spray (5 sources) Corticosteroid Start: 07-19-2016 take 2 spray(s) nasal route once daily FLUTICASONE PROPIONATE 50 MCG/ACT SUSP 2 sprays each nostril daily FLUTICASONE PROPIONATE [id number] Rubens Terrazas fluticasone prop ionate (FLONASE NASAL) Use 2 Sprays in the nose once daily. Active hydrocortisone butyrate 1 mg/ml topical cream (9 sources) Corticosteroid Start: 07-31-2016 HYDROCORTISONE BUTYRATE 0.1 % CREA apply external to lips in AM HYDROCORTISONE BUTYRATE 11911752216 Anna Padilla End: 07-26-2015 LOCOID 0.1 % CREA external t o lips in morning HYDROCORTISONE BUTYRATE [id number] Codie Centeno LPN End: 07-26-2015 LOCOID 0.1 % CREA external t o lips in morning HYDROCORTISONE BUTYRATE 73050682973 Codie Centeno LPN ibuprofen 200 mg oral tablet (3 sources) Nonsteroidal Anti-inflammatory Drug Start: 01-30-2016 take 3 tablets by mouth every six hours for pain MOTRIN IB 200 MG TABS 3 tabs po q6h for root canal pain IBUPROFEN [id number] Anna Chi LPN isosorbide dinitrate 40 mg oral tablet (9 sources) Nitrate Vasodilator Start: 07-31-2016 take 1 tablet by mouth four times daily as needed ISORDIL TITRADOSE 40 MG TABS One tablet by mouth four times daily as needed ISOSORBIDE DINITRATE 87852549064 Anna Padilla End: 02-14-2015 take 1 tablet by mouth every six hours as needed ISORDIL TITRADOSE 40 MG TABS One tablet by mouth every 6 hours as needed ISOSORBIDE DINITRATE 71641110528 Anna Xiao levoFLOXacin 500 mg oral tablet (3 sources) Quinolone Antimicrobial Start: 02-11-2015 End: 02-18-2015 take 1 tablet by mouth once daily LEVAQUIN 500 MG TABS One tablet by mouth daily LEVOFLOXACIN 46397688877 Anna Xiao LORazepam (6 sources) Benzodiazepine Start: 08-27-2013 LORAZEPAM TABS as needed LORAZEPAM TABS [id number] Gerardo Palomino take 1 tablet by sandra th every eight hours as needed for anxiety LORAZEPAM 0.5 MG TABS One tablet by mout h every 8 hours as needed for anxiety LORAZEPAM [id number] Bing Gorman magnesium (6 sources) MAGNESIUM CAPS M AGNESIUM CAPS [id number] Rubens Terrazas End: 01-30-2016 MAGNESIUM CAPS MA GNESIUM CAPS [id number] Anna Chi SATELLITE INSTALLATION TECHNICIAN meloxicam 15 mg oral tablet (6 sources) Nonsteroidal Anti-inflammatory Drug End: 02-14-2015 take 1 tablet by mouth once daily as needed MELOXICAM 15 MG TABS One tablet by mouth daily as needed MELOXICAM 29185088995 Anna Sandylakayla metaxalone 800 mg oral tablet (6 sources) Muscle Relaxant End: 02-14-2015 take 1 tablet by mouth every eight hours as needed for muscle spasms METAXALONE 800 MG TABS One tablet by mouth every 8 hours as needed for muscle spasms METAXALONE [id number] Bing Gorman MULTIPLE VITAMIN (2 sources) take 1 tablet by mouth once daily MULTIVITAMINS CAPS One tablet by mouth daily MULTIPLE VITAMIN 97491716868 Bing Gorman MULTIPLE VITAMIN (1 source) take 1 tablet by mouth once daily MULTIVITAMINS CAPS One tablet by mouth daily MULTIPLE VITAMIN 23598299466 Bing Gorman POLYETHYLENE GLYCOL 3350 (1 source) Osmotic Laxative Start: 07-31-2016 MIRALAX PACK 2 oral in liquid daily POLYETHYLENE GLYCOL 3350 [id number] Anna N Padilla POLYETHYLENE GLYCOL 3350 (6 sources) Start: 07-31-2016 MIRALAX PACK 2 oral in liquid daily POLYETHYLENE GLYCOL 3350 [id number] Anna N Padilla POLYETHYLENE GLY COL 3350 ORAL Take by mouth as needed. Active potassium (3 sources) POTASSIUM TABS P OTASSIUM TABS [id number] Rubens Terrazas predniSONE 20 mg oral tablet (14 sources) Corticosteroid Start: 10-26-2015 End: 01-30-2016 DELTASONE 20 MG TABS take as directed - Dr. Muhammad PREDNISONE [id number] Rubens Terrazas Start: 02-14-2015 End: 07-26-2015 PREDNISONE 20 MG TABS Take a pill for 1 day, then 0.5 pill for 4 days PREDNISONE [id number] Codie Centeno SATELLITE INSTALLATION TECHNICIAN predniSONE 10 mg tablet pack Take by mouth once daily. Active temazepam 15 mg oral capsule (6 sources) Benzodiazepine End: 02-14-2015 take 1 tablet by mouth at bedtime as needed for sleep RESTORIL 15 MG CAPS One tablet by mouth at bedtime as needed for sleep TEMAZEPAM [id number] Bing Gorman tiotropium 0.018 mg inhalant powder (9 sources) Anticholinergic Start: 08-27-2013 End: 02-14-2015 take 1 capsule by inhalation once daily SPIRIVA HANDIHALER 18 MCG CAPS 1 capsule inhilation daily TIOTROPIUM BROMIDE MONOHYDRATE [id number] Gerardo Palomino Start: 08-27-2013 take 1 capsule by in halation once daily SPIRIVA HANDIHALER 18 MCG CAPS 1 capsule inhilation daily TIOTROPIUM BROMIDE MONOHYDRATE [id number] Gerardo Palomino End: 02-14-2015 take 1 capsule by inhalation once daily SPIRIVA HANDIHALER 18 MCG CAPS 1 capsule inhilation daily TIOTROPIUM BROMIDE MONOHYDRATE [id number] Anna Xiao take 1 capsule by in halation once daily SPIRIVA HANDIHALER 18 MCG CAPS 1 capsule inhilation daily TIOTROPIUM BROMIDE MONOHYDRATE [id number] Bing Gorman tiZANidine 4 mg oral capsule (9 sources) Central alpha-2 Adrenergic Agonist Start: 07-31-2016 take 1 tablet by mouth twice daily TIZANIDINE HCL 4 MG CAPS One tablet by mouth twice daily TIZANIDINE HCL [id number] Anna Padilla Start: 08-27-2013 End: 07-13-2014 take 1 tablet by mouth once daily TIZANIDINE HCL 4 MG TABS One tablet by mouth daily TIZANIDINE HCL [id number] Gerardo Palomino zinc gluconate (6 sources) Start: 08-27-2013 EQL ZINC 50 MG TABS as directed ZINC GLUCONATE 60809764442 Gerardo Palomino Start: 08-27-2013 End: 07-13-2014 EQL ZINC 50 MG TABS as direc wagner ZINC GLUCONATE [id number] Bing Gorman Start: 08-27-2013 End: 07-13-2014 EQL ZINC 50 MG TABS as direc wagner ZINC GLUCONATE 24130307390 Gerardo Palomino Problems Active Problems Problem Classification Problem Date Documented Date Episodic/Chronic Anxiety disorders (4 sources) Generalized anxiety disorder; Translations: [Generalized anxiety disorder] Onset: 08-14-2006 11-13-2023 Chronic Asthma (8 sources) Moderate persistent asthma; Translations: [Asthma-chronic obstructive pulmonary disease overlap syndrome] Onset: 07-26-2015 07-26-2015 Chronic Chronic obstructive pulmonary disease and bronchiectasis (14 sources) Mild chronic obstructive pulmonary disease; Translations: [Moderate chronic obstructive pulmonary disease] Onset: 10-26-2015 Resolved: 01-30-2016 01-30-2016 Chronic Esophageal disorders (4 sources) Gastroesophageal reflux disease; Translations: [Gastro-esophageal reflux disease without esophagitis] Onset: 08-14-2006 11-13-2023 Chronic Osteoporosis (4 sources) Osteoporosis; Translations: [Age-related osteoporosis without current pathological fracture] Onset: 03-25-2016 03-25-2016 Chronic Other bone disease and musculoskeletal deformities (3 sources) Scoliosis deformity of spine; Translations: [Other idiopathic scoliosis, site unspecified] Onset: 08-27-2013 08-30-2013 Chronic Other lower respiratory disease (2 sources) Multiple nodules of lung; Translations: [Other nonspecific abnormal finding of lung field] 02-17-2024 Episodic Other lower respiratory disease (1 source) Other nonspecific abnormal finding of lung field; Translations: [Lung nodules] Onset: 02-27-2024 Episodic Other upper respiratory disease (4 sources) Allergic rhinitis; Translations: [Allergic rhinitis, unspecified] Onset: 08-14-2006 11-13-2023 Chronic Screening and history of mental health and substance abuse codes (1 source) Ex-cigarette smoker; Translations: [Personal history of nicotine dependence] 02-17-2024 Episodic Unclassified (1 source) Asthma-COPD overlap syndrome (HCC); Translations: [Asthma-COPD overlap syndrome (HCC)] Onset: 02-24-2024 Past or Other Problems Problem Classification Problem Date Documented Da te Episodic/Chronic Abdominal hernia (4 sources) Hernia of anterior abdominal wall; Translations: [Ventral hernia without obstruction or gangrene] Onset: 02-06-2016 02-06-2016 Episodic Other lower respiratory disease (8 sources) Dyspnea; Translations: [Lung mass] Onset: 08-23-2014 Resolved: 01-30-2016 01-30-2016 Episodic Other lower respiratory disease (1 source) Lung mass; Translations: [Other nonspecific abnormal finding of lung field] Onset: 08-23-2014 08-23-2014 Episodic Other non-epithelial cancer of skin (4 sources) Malignant neoplasm of skin; Translations: [Unspecified malignant neoplasm of skin, unspecified] Onset: 05-19-2013 05-19-2013 Episodic Spondylosis; intervertebral disc disorders; other back problems (10 sources) Disorder of lumbar disc; Translations: [Lumbar radiculopathy] Onset: 08-27-2013 08-30-2013 Episodic Results Test Name Value Interpretation Reference Range Facility [facility] 02-23 A. alternata IgE Qn (S) <0.35 Normal <0.35 [facility] Comment on above: Order Comment: Specimen Type: BLOOD SPEC IMEN Ordering Facility: [facility] Address: [address] [place] [address] Performed By: #### G RTLKS #### [facility] CLIA [id number] [address] [place] [address] [place] A. alternata IgE RAST class (S) Class 0 Normal Class 0 [facility] Comment on above: Order Comment: Specimen Type: BLOOD SPEC IMEN Ordering Facility: [facility] Address: [address] [place] [address] Performed By: #### G RTLKS #### [facility] CLIA [id number] [address] [place] [address] [place] Kittitian house dust mite IgE Qn (S) <0.35 Normal <0.35 [facility] Comment on above: Order Comment: Specimen Type: BLOOD SPEC IMEN Ordering Facility: [facility] Address: [address] [place] [address] Performed By: #### G RTLKS #### [facility] CLIA [id number] [address] [place] [address] [place] Kittitian house dust mite IgE RAST class (S) Class 0 Normal Class 0 [facility] Comment on above: Order Comment: Specimen Type: BLOOD SPEC IMEN Ordering Facility: [facility] Address: [address] [place] [address] Performed By: #### G RTLKS #### [facility] CLIA [id number] [address] [place] [address] [place] C. herbarum IgE Qn (S) <0.35 Normal <0.35 [facility] Comment on above: Order Comment: Specimen Type: BLOOD SPEC IMEN Ordering Facility: [facility] Address: [address] [place] [address] Performed By: #### G RTLKS #### [facility] CLIA [id number] [address] [place] [address] [place] C. herbarum IgE RAST class (S) Class 0 Normal Class 0 [facility] Comment on above: Order Comment: Specimen Type: BLOOD SPEC IMEN Ordering Facility: [facility] Address: [address] [place] [address] Performed By: #### G RTLKS #### [facility] CLIA [id number] [address] [place] [address] [place] Cat dander IgE Qn (S) <0.35 Normal <0.35 [facility] Comment on above: Order Comment: Specimen Type: BLOOD SPEC IMEN Ordering Facility: [facility] Address: [address] [place] [address] Performed By: #### G RTLKS #### [facility] CLIA [id number] [address] [place] [address] [place] Cat dander IgE RAST class (S) Class 0 Normal Class 0 [facility] Comment on above: Order Comment: Specimen Type: BLOOD SPEC IMEN Ordering Facility: [facility] Address: [address] [place] [address] Performed By: #### G RTLKS #### [facility] CLIA [id number] [address] [place] [address] [place] Common Ragweed IgE Qn (S) <0.35 Normal <0.35 [facility] Comment on above: Order Comment: Specimen Type: BLOOD SPEC IMEN Ordering Facility: [facility] Address: [address] [place] [address] Performed By: #### G RTLKS #### [facility] CLIA [id number] [address] [place] [address] [place] Common Ragweed IgE RAST class (S) Class 0 Normal Class 0 [facility] Comment on above: Order Comment: Specimen Type: BLOOD SPEC IMEN Ordering Facility: [facility] Address: [address] [place] [address] Performed By: #### G RTLKS #### [facility] CLIA [id number] [address] [place] [address] [place] Dog dander IgE Qn (S) <0.35 Normal <0.35 [facility] Comment on above: Order Comment: Specimen Type: BLOOD SPEC IMEN Ordering Facility: [facility] Address: [address] [place] [address] Performed By: #### G RTLKS #### [facility] CLIA [id number] [address] [place] [address] [place] Dog dander IgE RAST class (S) Class 0 Normal Class 0 [facility] Comment on above: Order Comment: Specimen Type: BLOOD SPEC IMEN Ordering Facility: [facility] Address: [address] [place] [address] Performed By: #### G RTLKS #### [facility] CLIA [id number] [address] [place] [address] [place] Goosefoot IgE Qn (S) <0.35 Normal <0.35 [facility] Comment on above: Order Comment: Specimen Type: BLOOD SPEC IMEN Ordering Facility: [facility] Address: [address] [place] [address] Performed By: #### G RTLKS #### [facility] CLIA [id number] [address] [place] [address] [place] Goosefoot IgE RAST class (S) Class 0 Normal Class 0 [facility] Comment on above: Order Comment: Specimen Type: BLOOD SPEC IMEN Ordering Facility: [facility] Address: [address] [place] [address] Performed By: #### G RTLKS #### [facility] CLIA [id number] [address] [place] [address] [place] blue grass IgE Qn (S) <0.35 Normal <0.35 [facility] Comment on above: Order Comment: Specimen Type: BLOOD SPEC IMEN Ordering Facility: [facility] Address: [address] [place] [address] Performed By: #### G RTLKS #### [facility] CLIA [id number] [address] [place] [address] [place] blue grass IgE RAST class (S) Class 0 Normal Class 0 [facility] Comment on above: Order Comment: Specimen Type: BLOOD SPEC IMEN Ordering Facility: [facility] Address: [address] [place] [address] Performed By: #### G RTLKS #### [facility] CLIA [id number] [address] [place] [address] [place] George IgE Qn (S) <0.35 Normal <0.35 [facility] Comment on above: Order Comment: Specimen Type: BLOOD SPEC IMEN Ordering Facility: [facility] Address: [address] [place] [address] Performed By: #### G RTLKS #### [facility] CLIA [id number] [address] [place] [address] [place] George IgE RAST class (S) Class 0 Normal Class 0 [facility] Comment on above: Order Comment: Specimen Type: BLOOD SPEC IMEN Ordering Facility: [facility] Address: [address] [place] [address] Performed By: #### G RTLKS #### [facility] CLIA [id number] [address] [place] [address] [place] Collbran IgE Qn (S) <0.35 Normal <0.35 [facility] Comment on above: Order Comment: Specimen Type: BLOOD SPEC IMEN Ordering Facility: [facility] Address: [address] [place] [address] Performed By: #### G RTLKS #### [facility] CLIA [id number] [address] [place] [address] [place] Collbran IgE RAST class (S) Class 0 Normal Class 0 [facility] Comment on above: Order Comment: Specimen Type: BLOOD SPEC IMEN Ordering Facility: [facility] Address: [address] [place] [address] Performed By: #### G RTLKS #### [facility] CLIA [id number] [address] [place] [address] [place] Eosinophils Auto (Bld) [#/Vo l]on 02-24-2024 Eosinophils (Bld) [#/Vol] 0.09 10*3/uL Normal <0.46 [facility] Comment on above: Order Comment: Specimen Type: BLOOD SPEC IMEN Ordering Facility: [facility] Address: [address] [place] [address] Performed By: #### 7 11-2 #### [facility] CLIA [id number] [address] [place] [address] [place] IgE SerPl-aCncon 02-24-2024 IgE Qn 7.8 kU/l Normal <114.0 [facility] Comment on above: Order Comment: Specimen Type: BLOOD SPEC IMEN Ordering Facility: [facility] Address: [address] [place] [address] Performed By: #### 1 [id number] #### [facility] CLIA [id number] [address] [place] [address] [facility] CNOVon 02-17-2024 CNOV Office Visit (PULMWS ) JORGE LUIS LYNN ([id number]) 1955 F Date Time Provider Department 02/17/24 12:45 PM MELODY MAO PULMWS During your visit today, we recorded the following information about you: Temperature Pulse Blood pressure Weight 97.7 degrees 89/minute 113/66 59 kg Melody Mao MD 02/17/2024 4:01 PM Signed . 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 She does not have a history of asthma as a child nor significant allergies however she was having issues with recurrent bronchitis. Pulmonary function test showed mild obstruction and elevated exhaled nitric oxide level. She had been on Symbicort and at one time on Breo Ellipta. She stopped using her controller inhaler due to cost. She states that she was tried on Dupixent several years ago for better control of her obstructive lung disease but this caused her to have recurrent pneumonia. She does have some minimal bronchiectasis noted on chest CT as well as apical emphysema. Since starting 3 times a week azithromycin, she has not had any bronchitis or pneumonia in several years. She has mucus clearance device but does not use it since she does not have much difficulty with mucus production at this time. She decided to seek care as she has noted some increased shortness of breath, intermittent chest congestion. No significant sputum production, no wheezing or chest pain. She uses 3 L of oxygen at night. She states that she was on continuous oxygen in the past. DME: [employer] DATA: PFT: Pulmonary function test show reduced FEV1 to FVC with normal FEV1. Small airways obstruction that does not improve with bronchodilator. Diffusing capacity is normal. Imaging / Diagnostic Studies: 2020: CT chest [facility] 2019: I personally reviewed the images with description per HPI PAST MEDICAL HISTORY Diagnosis Date Asthma-COPD overlap syndrome (HCC) Diverticulosis of colon (without mention of hemorrhage) DVT (deep venous thrombosis) (HCC) Dysplasia of cervix, unspecified Esophageal reflux Irritable bowel syndrome Lumbago Other and unspecified alcohol dependence, in remission Other genital herpes Paroxysmal ventricular tachycardia (HCC) 07/10/1999 Occurred in monitored unit while worked up for chest pain: heart cath wnl, isoproterenol provocation test unable to stimulate abnormal rhythm Pneumonia 02/03/2012 Rheumatoid arthritis (HCC) Scoliosis 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 fluticasone propionate (FLONASE NASAL) Use 2 Sprays in the nose once daily. DULoxetine (CYMBALTA) 60 mg capsule Take 60 mg by mouth once daily. cycloSPORINE (RESTASIS MULTIDOSE) 0.05 % drop Use 1 Drop in both eyes once daily. vitamin D3-folic acid 2,500 unit- 1 mg tab Take 1 tablet by mouth once daily. miSOPROStol (CYTOTEC) 100 mcg tablet Take 100 mcg by mouth four times daily. chlorpheniramine (ALLER-CHLOR) 4 mg tablet Take 4 mg by mouth every 6 hours as needed. levocetirizine 5 mg tablet Take 5 mg by mouth once daily. OXYGEN, HOME THERAPY, Inhale 3 L/min as instructed as directed. naloxone 4 mg/actuation nasal spray (NARCAN) 1 [place] by nasal (alternating) route as needed for known or suspected opioid overdose. Use 1 spray in one nostril as needed for overdose. May repeat every 2 to 3 min in alternating nostrils until medical assistance is available albuterol HFA 90 mcg/actuation HFA Inhale 2 Puffs as instructed as needed. OTC NUTRITIONAL SUPPLEMENT Take 1 tablet by mouth once daily. Biotin magnesium oxide 400 mg magnesium tab Take 1 tablet by mouth once daily. OTC NUTRITIONAL SUPPLEMENT Take 1 tablet by mouth once daily. [place] predniSONE 10 mg tablet pack Take by mouth once daily. azithromycin (ZITHROMAX) 250 mg tablet Take one on Mon, Wed, Fri albuterol HFA (PROVENTIL HFA, VENTOLIN HFA) 90 mcg/actuation inhaler Inhale 2 Puffs as instructed every 4 hours as needed. ipratropium bromide (ATROVENT) 42 mcg (0.06 %) nasal spray Use 1 [place] in the nose two times a day. sulfaSALAzine (AZULFIDINE) 500 mg tablet Take 500 mg by mouth three times a day. esomeprazole (NEXIUM) 20 mg capsule Take 20 mg (more content not included)... Normal [facility] No Panel Informationon 02-16 DLCO (ml/min/mmHg) 15.02 ml/min/mmHg [facility] DLCO LLN (ml/min/mmHg) 14.35 ml/min/mmHg [facility] DLCO PREDICTED (ml/min/mmHg) 20.52 ml/min/mmHg [facility] DLCO ULN (ml/min/mmHg) 26.69 ml/min/mmHg [facility] DLCO/VA (ml/min/mmHg/L) 3.07 ml/min/mmHg /L [facility] DLCO/VA PREDICTED (ml/min/mmHg/L) 4.29 ml/min/mmHg /L [facility] DLCOcor PREDICTED (ml/min/mmHg) 20.52 ml/min/mmHg [facility] ERV PREDICTED (L) 0.92 L/S [facility] FEF25% POST (L/S) 4.43 L/S [facility] FEF25% PRE (L/S) 3.87 L/S [facility] IGE81-82% LLN (L/S) 0.87 L/S [facility] RYN61-24% POST (L/S) 0.95 L/S [facility] FNJ91-99% PRE (L/S) 1.08 L/S [facility] TDB13-11% PREDICTED (L/S) 1.87 L/S [facility] FEF75% LLN (L/S) 0.17 L/S [facility] FEF75% POST (L/S) 0.30 L/S [facility] FEF75% PRE (L/S0 0.30 L/S [facility] FEF75% PREDICTED (L/S) 0.46 L/S [facility] FEF75% ULN (L/S) 1.21 L/S [facility] FET POST (S) 10.93 S [facility] FET PRE (S) 14.23 S [facility] FEV1 LLN (L) 1.50 L [facility] FEV1 PRE (L) 2.13 L [facility] FEV1 PREDICTED (L) 2.15 L [facility] FEV1 ULN (L) 2.75 L [facility] FEV1/FVC LLN (%) 66 % [facility] FEV1/FVC POST (%) 67 % [facility] FEV1/FVC PRE (%) 63 % [facility] FEV1/FVC PREDICTED (%) 79 % [facility] FEV1_POST (L) 2.13 L [facility] FVC LLN (L) 1.95 L [facility] FVC POST (L) 3.16 L [facility] FVC PRE (L) 3.37 L [facility] FVC PREDICTED (L) 2.75 L [facility] FVC ULN (L) 3.58 L [facility] IC PREDICTED (L) 1.84 L/S [facility] PEF LLN (L/S) 3.93 L/S [facility] PEF POST (L/S) 6.01 L/S [facility] PEF PRE (L/S) 5.97 L/S [facility] PEF ULN (L/S) 7.36 L/S [facility] SVC LLN (L) 1.95 L/S [facility] SVC PREDICTED (L) [facility]) 3.58 [facility]S [facility] VA (L) 4.90 L [facility] VA PREDICTED (L) 5.06 L Replaced by [facility] [address] [place] [address] Test Date: 2024-02-17 Pat Name: JORGE LUIS LYNN Department: Room: Gender: Female 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 No contraindications or sensitivities were noted. Meds taken: none before testing. Current ATS/ERS acceptability and repeatability standards for spirometry met. Start of test and EOFE criteria met. Current ATS/ERS acceptability and repeatability standards for DLCO met with 2 acceptable maneuvers. 4 puffs Albuterol (360 mcg) delivered by MDI via holding chamber. HR pre = 102/min, HR post = 105/min. IMPRESSION: Spirometry reveals a reduced FEV1/FVC with normal FEV1 and FVC values. This could reflect a normal presentation or could indicate mild obstruction. Clinical correlation recommended. Negative bronchodilator response. The diffusion capacity (uncorrected for hemoglobin) is normal. Electronically Signed On 02-17-2024 12:28:52 EDT by Melody Mao MD ID: [id number] Name: JORGE LUIS LYNN Race: White Ht: 64.02 in Wt: 130.00 lbs Age: 69 Gender: Female : 1955 Dx: COPD_ Smoking Hx: Non-smoker Doctor: MELODY MAO Test Date: 02/17/2024 Site: [facility] Tech: Edgar Nolan PRE-BRONCH POST-BRONCH Pre LLN Pred ULN %Pred Post %Pred %Chg SPIROMETRY FVC (L) 3.37 1.95 2.75 3.58 122 3.16 114 -7 FEV1 (L) 2.13 1.50 2.15 2.75 99 2.13 99 0 FEV1/FVC 0.63 0.66 0.79 0.89 80 0.67 85 6 PEF L/s (L/sec) 5.97 3.93 5.65 7.36 105 6.01 106 0 FEF50 (L/sec) 1.44 1.49 3.10 4.71 46 1.32 42 -8 FIF50 (L/sec) 4.79 4.13 -13 FEF50/FIF50 0.30 90-100 0.32 6 FIVC (L) 3.18 3.00 -5 AGP55-35 (L/sec) 1.08 0.87 1.87 3.30 57 0.95 50 -12 Time (sec) 14.23 10.93 -23 FET PEF (sec) 0.07 0.07 4 AMARJIT (L) 0.09 0.11 19 Vol Extrap % (%) 3 4 26 LUNG DIFFUSION DLCOunc (ml/min/mmHg) 15.02 14.35 20.52 26.69 73 VA (L) 4.90 3.96 5.06 6.17 96 DLunc/VA (ml/min/mmHg/L) 3.07 2.97 4.29 5.60 71 BHT (sec) 10.84 IVC (L) 3.08 Comments: Medications and Allergies were reviewed for possible drug interactions per policy. No contraindications or sensitivities were noted. Meds taken: none before testing. Current ATS/ERS acceptability and repeatability standards for spirometry met. Start of test and EOFE criteria met. Current ATS/ERS acceptability and repeatability standards for DLCO met with 2 acceptable maneuvers. 4 puffs Albuterol (360 mcg) delivered by MDI via holding chamber. HR pre = 102/min, HR post = 105/min. PULMONARY FUNCTION LAB [facility] XR WRIST LEFT 3 VIEWSon XR WRIST LEFT 3 VIEWS EXAM: XR WRIST LEFT 4 VIEWS,, 07/09/2021 13:09 PM COMPARISON: Radiographs dated May 24, 2021 CLINICAL INDICATIONS: Follow up care RELEVANT CLINICAL HISTORY: M25.532:Left wrist pain FINDINGS: 5 images obtained. Soft Tissue: Improved soft tissue swelling. Bone: Status post volar cortical plate and screw construct of the distal radius. There is stable alignment of the comminuted distal radial fracture with slight progression of immature marginal callus and fracture line lysis. Discrete fracture line and clefting remains. Progressive remodeling of the ulnar styloid fracture. Corticated ossicle projects along the dorsal aspect of the lunate. Carpal Joints: Carpal alignment is anatomic. Ulnar length: Mild positive ulnar variance is evident. DRUJ: Stable alignment of the distal radial ulnar joint. IMPRESSION: Slight progressive healing and stable alignment of the internally fixated distal radial fracture. Stable alignment and progressive healing of the ulnar styloid fracture. Normal [facility] XR WRIST LEFT 3 VIEWSon 05-06 XR WRIST LEFT 3 VIEWS EXAM: XR WRIST LEFT 4 VIEWS,, 05/24/2021 10:24 AM COMPARISON: Compared to prior study dated April 25, 2021. CLINICAL INDICATIONS: Follow up care RELEVANT CLINICAL HISTORY: M25.532:Left wrist pain FINDINGS: 5 images obtained. Soft Tissue: There is no significant soft tissue swelling. Bone: Redemonstration previous ORIF distal radius fracture. Increased density at the fracture site related to ongoing healing. Fixation hardware is intact without surrounding lucency. Increased sclerosis at the base of the ulnar styloid related to a healing fracture. Carpal Joints: Carpal alignment is anatomic. Ulnar length: There is ulnar neutral variance. DRUJ: The distal radioulnar joint is anatomically aligned. IMPRESSION: Continued healing distal radius and ulnar styloid fractures with stable fixation hardware in the distal radius. Normal [facility] XR WRIST LEFT 3 VIEWSon 04-05 XR WRIST LEFT 3 VIEWS EXAM: 4 view left wrist VIEWS,, 04/25/2021 11:00 AM COMPARISON: No prior studies available for comparison. CLINICAL INDICATIONS: Follow up care RELEVANT CLINICAL HISTORY: S52.532P:Closed Colles' fracture of left radius with malunion FINDINGS: 7 images obtained. There is been open reduction internal fixation of a comminuted distal intra-articular radial fracture with a volar plate and multiple fixation screws. There is an osteotomy site with graft material within the distal metaphyseal region. The articular surface is neutral in position. There is a likely prior healed ulnar styloid fracture. There is an ulnar neutral variant. There are osteoarthritic changes at the first metacarpal carpal joint. IMPRESSION: Status post open reduction internal fixation of a nonunion distal intra-articular radial fracture with intact hardware in neutral articular surface alignment. Prior ulnar styloid fracture. Normal [facility] IG PAP [id number] 08-19-2017 Diagnosis: See Ref Lab Report Normal [facility] Comment on above: Order Comment: repeat pap scant cellular ity Performed By: #### [id number] ####FAIZA Send Outs [id number] [place] [address] Pathology (EM)on 08-12-2017 Pathology ([facility]) FINAL GYNECOLOGIC CY TOLOGY [id number] ADEQUACYSatisfactory for EvaluationEndocervical component absent but acceptable due to patient age/historyGENERAL CATEGORIZATIONNegative for Intraepithelial Lesion or MalignancyCOMMENTAtrophic cellular pattern.CLINICAL HISTORYComment: No LMP provided.SPECIMEN(A) SCREENING CERVICAL/ENDOCERVICAL LIQUID-BASED PAPPerformed at [facility], [address] [place], [place] [address]Screened by: Signed Out by: TAWANDA INGRAM Clinical Rehabilitation Aide Reported: 08/18/2017 Normal [facility] Healthcare Comment on above: Performed By: #### PHARMACY CLINICAL COORDINATOR ####[facility] [address] [place] [address] HPV High Riskon 04-25-2017 HPV High Risk [facility] Comment on above: Performed By: #### [id number] ####FAIZA Sen d Outs [id number] [place] [address] IG PAP [id number] 04-25-2017 Diagnosis: See Ref Lab Report [facility] Comment on above: Performed By: #### [id number] ####FAIZA Sen d Outs [id number] [place] [address] Pathology (EM)on 04-22-2017 Pathology ([facility]) FINAL GYNECOLOGIC CY TOLOGY [id number] ADEQUACYUnsatisfactory for Evaluation. Specimen is processed and examined, butunsatisfactory for evaluation of epithelial abnormality due to:Scant cellularity.GENERAL CATEGORIZATIONUnsatisfactory for evaluation.COMMENTHigh Risk HPV was ordered and performed at [facility] Laboratory. Results arereported below in this report. A negative result is a normal result. Apositive result is an abnormal result.HPV HIGH RISK NEGATIVE: The results of this test indicate the patient'sspecimen is NEGATIVE for the following high-risk HPV types:16/18/31/33/35/39/45/51/ 52/56/58/59/66/68. RELATED LABORATORY RESULTSOrdered by: Roby Date: 04/22/2017 Ord Time: 20:18Test Collected Result Abnormal Range Units SpecimenName D&T TypeHPV Negative NA MSCRNA, 7HighRiskThe HPV test detects E6/E7 viral messenger RNA (mRNA) high-risk HPV orlamyhql23,18,31,33,35,39,45, 51,55,58,59,66, and 68 which are associated with cervicalcancer and its precursor lesions. However, cross-reactions with othergenotypes may occur. Results should be correlated with cytologic andhistologic findings. Sensitivity may be affected by cellularity of specimen.CLINICAL HISTORYComment: No LMP provided.SPECIMEN(A) SCREENING CERVICAL/ENDOCERVICAL LIQUID-BASED PAPPerformed at [facility], [address] [place], [place] [address]Screened by: Signed Out by: TAWANDA INGRAM Clinical Rehabilitation Aide Reported: 04/24/2017 Normal [facility] Healthcare Comment on above: Performed By: #### PHARMACY CLINICAL COORDINATOR ####[facility] [id number] [place] [address] Microbiology: Culture, Urine on 12-15-2016 PRUDENCE . [facility] Work Phone: Lab Report: (P) Urinalysis, Completeon 12-13-2016 Albumin Ql (U) Negative Negative [facility] Work Phone: Bilirubin Ql (U) Negative Negative [facility] Work Phone: Ketones mass conc (U) Negative Negative [facility] Work Phone: Nitrite Urine Negative Invalid Interpretation Code Negative [facility] Work Phone: Occult Blood, urine Negative Invalid Interpretation Code Negative [facility] Work Phone: OCCULT BLOOD-UR Negative Negative [facility] Work Phone: pH (U) 6.5 [pH] 5.0 - 8.0 [facility] Work Phone: specific gravity, urine 1.010 1.002-1.030 [facility] Work Phone: Urine, bilirubin presence Negative Invalid Interpretation Code Negative [facility] Work Phone: Urine, clarity Clear Clear [facility] Work Phone: Urine, color Yellow Yellow [facility] Work Phone: Urine, glucose presence Normal mg/dl Normal [facility] Work Phone: Urine, ketones presence Negative Invalid Interpretation Code Negative [facility] Work Phone: Urine, leukocyte esterase presence 25 High Negative [facility] Phone: Urine, pH 6.5 [pH] Invalid Interpretation Code 5.0 - 8.0 [facility] Work Phone: Urine, protein Negative Invalid Interpretation Code Negative [facility] Work Phone: urobilinogen, urine, by dipstick 1 mg/dL High Normal [facility] Phone: Lab Report: Basic Metabolic Profile (BMP)on 12-13-2016 Anion gap 4 mmol/L Low 5-15 [facility] Work Phone: Anion gap molar conc 4 mmol/L Low 5-15 [facility] Work Phone: BUN/Creatinine Ratio 29.9 RATIO High 10-20 [facility] Work Phone: Calcium 9.1 mg/dL 8.5-10.1 [facility] Work Phone: Chloride 104 mmol/L 98-107 [facility] Work Phone: CO2 32.0 mmol/L Invalid Interpretation Code 21.0-32.0 [facility] Work Phone: CO2 ppres (BldV) 32.0 mmol/L 21.0-32.0 [facility] Work Phone: Creatinine 0.77 mg/dL 0.55-1.02 [facility] Work Phone: eGFR (non-black) 98 mL/min/{1.73_m2} Invalid Interpretation Code >60 [facility] Work Phone: eGFR (non-black) 81 mL/min/{1.73_m2} >60 [facility] Work Phone: EST GFR - AA 98 mL/min >60 [facility] Work Phone: Glucose 98 mg/dL Invalid Interpretation Code 70-110 [facility] Work Phone: Glucose mass conc 98 mg/dL 70-110 [facility] Work Phone: Potassium 3.9 mmol/L 3.5-5.1 [facility] Work Phone: Sodium 140 mmol/L 136-145 [facility] Work Phone: Urea nitrogen 23 mg/dL High 7-18 [facility] Work Phone: Lab Report: CBC-Complete Blo od Cnt No Diffon 12-13-2016 Erythrocyte distribution width Ratio (RBC) 47.3 fL High 35.1-43.9 [facility] Work Phone: Erythrocyte distribution width Ratio (RBC) 12.8 % 11.6-14.6 [facility] Work Phone: Erythrocytes (RBC) 4.17 10*6/uL Low 4.2-5.4 [facility] Work Phone: Hematocrit (HCT) 42.2 % Invalid Interpretation Code 37-47 [facility] Work Phone: Hematocrit Volume Fraction (Bld) 42.2 % 37-47 [facility] Work Phone: Hemoglobin (HGB) 13.5 g/dL 12.0-15.0 [facility] Work Phone: MCH 32.4 pg High 27.0-32.0 [facility] Work Phone: MCH Entitic mass (RBC) 32.4 pg High 27.0-32.0 [facility] Work Phone: MCHC 32.0 G/GL Invalid Interpretation Code 32-36 [facility] Work Phone: MCHC mass conc (RBC) 32.0 G/GL 32-36 [facility] Work Phone: MCV 101.2 fL High 81-99 [facility] Work Phone: MCV Entitic volume (RBC) 101.2 fL High 81-99 [facility] Work Phone: Platelet mean volume Entitic volume (Bld) 10.3 fL 6.2-12.0 [facility] Work Phone: Platelets 257 10*3/mm3 Invalid Interpretation Code 150-450 [facility] Work Phone: Platelets #/vol (Bld) 257 10*3/mm3 150-450 [facility] Work Phone: PMV by Rick 10.3 fL Invalid Interpretation Code 6.2-12.0 [facility] Work Phone: RBC #/vol (Bld) 4.17 10*6/uL Low 4.2-5.4 [facility] Work Phone: RDW-CA 12.8 % Invalid Interpretation Code 11.6-14.6 [facility] Work Phone: red blood cell distribution width, size density 47.3 fL High 35.1-43.9 [facility] Work Phone: WBC #/vol (Bld) 5.8 10*3/uL 4.4-11.0 [facility] Work Phone: WBC (Leukocytes) 5.8 10*3/uL Invalid Interpretation Code 4.4-11.0 [facility] Work Phone: Lab Report: Urinalysis, Comp leteon 12-13-2016 Mucus Ql (Urine sed) 1+ [facility] Work Phone: Urine, bacteria in sediment RARE /hpf None Seen [facility] Work Phone: Urine, epithelial cells in sediment 0-5 SEEN 5-10 [facility] Work Phone: Urine, erythrocytes in sediment by volume 0-5 SEEN 0-5 [facility] Work Phone: Urine, mucus presence in sediment 1+ Invalid Interpretation Code [facility] Phone: WBC #/vol (Bld) 0 SEEN 0-5 [facility] Work Phone: WBC (Leukocytes) 0 SEEN Invalid Interpretation Code 0-5 [facility] Phone: Office Visit: Spine Visiton 08-05-2016 Documentation of current medications (procedure) Done Invalid Interpretation Code [facility] [employer] [facility] Work Phone: Protein mass conc Done [facility] Work Phone: Tobacco smoking status ORIS Never [facility] Work Phone: Tobacco smoking status [facility] Former smoker [facility] Work Phone: Tobacco use [facility] Former smoker Invalid Interpretation Code [facility] [employer] [facility] Work Phone: Office Visit: COPD and asthm aon 07-19-2016 Fall risk assessment Yes [facility] [employer] [facility] Work Phone: Vital Signs Date Time Vital Sign Value Performing Clinician Facility 02-17-2024 12:54-0400 Body mass index (BMI) [Ratio] 22.3 kg/m2 Melody Mao MD Work Phone: [facility] 02-17-2024 12:54-0400 Body temperature 97.7 [degF] Melody Mao MD Work Phone: [facility] 02-17-2024 12:54-0400 Body weight 58.97 kg Meloyd Mao MD Work Phone: [facility] 02-17-2024 12:54-0400 Diastolic blood pressure 66 mm[Hg] Melody Mao MD Work Phone: [facility] 02-17-2024 12:54-0400 Heart rate 89 /min Melody Mao MD Work Phone: [facility] 02-17-2024 12:54-0400 SaO2% (BldA) [Mass fraction] 89 % Melody Mao MD Work Phone: [facility] 02-17-2024 12:54-0400 Systolic blood pressure 113 mm[Hg] Melody Mao MD Work Phone: [facility] 02-17-2024 11:51-0400 Body height 162.6 cm [facility]m [facility] Work Phone: [facility] 02-17-2024 11:51-0400 Body mass index (BMI) [Ratio] 22.3 kg/m2 [facility] Work Phone: [facility] 02-17-2024 11:51-0400 Body weight 58.97 kg [facility] Work Phone: [facility] 02-17-2024 11:51-0400 Heart rate 102 /min [facility] Work Phone: [facility] 02-17-2024 11:51-0400 Respiratory rate 14 /min [facility] Work Phone: [facility] 02-17-2024 11:51-0400 SaO2% (BldA) [Mass fraction] 93 % [facility] Work Phone: [facility] 08-05-2016 08:18-0400 BMI (Body Mass Index) 21.63 kg/m2 [facility] Work Phone: 08-05-2016 08:18-0400 Weight 57.15 kg [facility] Work Phone: 07-19-2016 12:55-0400 Body Temperature 98 [degF] [facility] Work Phone: 07-19-2016 12:55-0400 BP Diastolic 78 mm[Hg] [facility] Work Phone: 07-19-2016 12:55-0400 BP Systolic 114 mm[Hg] [facility] Work Phone: 07-19-2016 12:55-0400 Height 162.56 cm [facility] Work Phone: 07-19-2016 12:55-0400 Pulse (Heart Rate) 70 /min [facility] Work Phone: 07-19-2016 12:55-0400 Pulse Oximetry 98 % [facility] Work Phone: 07-19-2016 12:55-0400 Respiratory Rate 18 /min [facility] Work Phone: 01-30-2016 06:58-0400 Body Temperature 98.06 [degF] [facility] Work Phone: 01-30-2016 06:58-0400 BSA (Body Surface Area) 1.65 m2 [facility] Work Phone: 01-30-2016 06:58-0400 Height 162.56 cm [facility] Work Phone: 01-30-2016 [id number] Weight 60.45 kg Woody Alejandro [facility] Work Phone: Encounters Encounter Date Encounter Type Care Provider Facility Start: 02-27-2024 End: 02-27-2024 ambulatory MANDY ASHER Facility:[facility] Start: 02-27-2024 End: 02-27-2024 Subsequent hospital visit by physician Devorah [facility] ([facility]) Work Phone: Cat Scan Comment on above: Bronchiectasis witho ut complication (HCC) [J47.9] Start: 02-24-2024 End: 02-24-2024 ambulatory MANDY ASHER Facility:[facility] Start: 02-17-2024 End: 02-17-2024 ambulatory MANDY ASHER Facility:[facility] Start: 02-17-2024 End: 02-17-2024 Patient encounter procedure Melody Mao MD Work Phone: Pulmonary Medicine Comment on above: Asthma-COPD overlap syndrome (HCC) (Primary Dx); Bronchiectasis without complication (HCC); Lung nodules; Former cigarette smoker Start: 02-17-2024 End: 02-17-2024 ambulatory Pulm Lab [facility] Work Phone: PULM LAB [facility] Comment on above: Spirometry Start: 02-17-2024 End: 02-17-2024 Patient encounter procedure Pulm Lab [facility] Work Phone: [facility]UL[facility] Start: 07-09-2021 ambulatory [facility] Facility: [facility] Start: 06-22-2021 ambulatory MANDY ASHER Facility:[facility] Start: 05-24-2021 ambulatory [facility] Facility: [facility] Start: 05-24-2021 ambulatory [facility] Facility: [facility] Start: 05-11-2021 ambulatory MANDY ASHER Facility:[facility] Start: 04-25-2021 ambulatory MANDY ASHER Facility:[facility] Start: 04-13-2021 ambulatory MANDY ASHER Facility:[facility] Start: 04-11-2021 End: 04-11-2021 ambulatory [facility] Facility:[facility] Start: 04-09-2021 ambulatory [facility] Facility: [facility] Start: 04-09-2021 ambulatory CROW Mccraryi lity:[facility] Start: 03-27-2021 ambulatory MANDY ASHER Facility:[facility] Start: 03-25-2018 Patient encounter procedure Dav Paz Facility:[facility] Start: 08-12-2017 End: 08-13-2017 Patient encounter procedure Dav Paz Facility:[facility] Start: 08-12-2017 End: 08-13-2017 Patient encounter procedure Dav Paz Facility:[facility] Start: 08-12-2017 End: 08-12-2017 Patient encounter procedure Dav Paz Facility:[facility] Start: 04-22-2017 End: 04-23-2017 Patient encounter procedure Dav Paz Facility:[facility] Start: 04-22-2017 End: 04-23-2017 Patient encounter procedure Dav Paz Facility:[facility] Start: 04-17-2017 End: 04-17-2017 Patient encounter procedure Dav Paz Facility:[facility] Procedures Date Procedure Procedure Detail Performing Clinician Start: 02-17-2024 Co diffusing capacity E ruma Mao MD Work Phone: Start: 12-13-2016 End: 12-13-2016 Urinalysis Rubens Terrazas Start: 08-05-2016 End: 08-16-2016 DEXA scan Safjustin Alejandro Work Phone: Start: 08-05-2016 End: 08-16-2016 X-ray exam l-s spine bending Safdar Daryn Alejandro Work Phone: Start: 08-05-2016 End: 08-16-2016 X-ray exam of trunk spine Safangelar Daryn angel Work Phone: Start: 01-04-2016 End: 07-16-2016 Pulmonary Function Test - complete Rubens Terrazas Work Phone: Start: 10-26-2015 End: 07-16-2016 [facility] Terrazas Work Phone: Start: 10-26-2015 End: 07-16-2016 Follow Up Appt 3 months Rubens Terrazas Work Phone: Start: 10-04-2015 End: 07-16-2016 Pulmonary Function Test - complete Rubens Terrazas Work Phone: Start: 09-03-2015 End: 07-16-2016 Ct thorax w/o dye Rubens Terrazas Work Phone: Start: 07-26-2015 End: 07-16-2016 Follow Up Appt 3 months Rubens Terrazas Work Phone: Start: 02-14-2015 End: 02-14-2015 Documentation of current medications Rubens Terrazas Work Phone: Start: 02-14-2015 End: 02-15-2015 Evaluate pt use of inhaler Rubens swanson Work Phone: Start: 02-14-2015 End: 07-16-2016 Follow Up Appt 3 months Rubens Terrazas Work Phone: Start: 08-23-2014 End: 07-16-2016 Follow Up Appt 6 months uRbens Terrazas Work Phone: Start: 03-13-2012 Lipid 1996 panel - S gonzalo or Plasma [facility] Work Phone: Start: 02-11-2011 Colonoscopy [facility] Work Phone: Plan of Treatment Date Care Activity Detail Author Start: 06-04-2024 End: 06-04-2024 Patient encounter procedure 06/04/2024 9:30 AM EST Office Visit Pulmonary Medicine [address] [place] [address] Melody Mao MD [address] [place] [id number] 3 MTH F/U ASTHMA Pulmonary Medicine Comment on above: 3 MTH F/U ASTHMA Start: 03-26-2024 Covid-19 Vaccine ( season) Covid-19 Vaccine () [facility] Start: 02-27-2024 End: 02-27-2024 Patient encounter procedure 02/27/2024 11:40 AM EDT Appointment Cat Scan [address] [place], [place] [id number] CT CHEST Cat Scan Comment on above: CT CHEST Start: 02-17-2024 End: 05-18-2024 [facility] Lab Routine Asthma-COPD overlap syndrome (HCC) Expected: 02/17/2024, Expires: 05/18/2024 [facility] Comment on above: Expected: 02/17/2024 , Expires: 05/18/2024 Start: 02-17-2024 End: 05-18-2024 Eosinophils [#/volume] in Blood EOSINOPHIL ABS COUNT Lab Routine Asthma-COPD overlap syndrome (HCC) Expected: 02/17/2024, Expires: 05/18/2024 [facility] Comment on above: Expected: 02/17/2024 , Expires: 05/18/2024 Start: 02-17-2024 End: 05-18-2024 IgE [Units/volume] in Serum or Plasma IMMUNOGLOBULIN E Lab Routine Asthma-COPD overlap syndrome (HCC) Expected: 02/17/2024, Expires: 05/18/2024 [facility] Comment on above: Expected: 02/17/2024 , Expires: 05/18/2024 Start: 05-05-2023 Advance Directive Discussion Advance Directive Discussion [facility] Start: 05-03-2023 Urine microalbumin profile DTaP,Tdap,Td Vaccine (2 - Td or Tdap) [facility] Start: 02-11-2021 Screening for malignant neoplasm of colon [facility] Start: 12-19-2020 Pneumococcal Vaccine : 65+ (4 of 4 - PPSV23 or PCV20) Pneumococcal Vaccine: 65+ (4 of 4 - PPSV23 or PCV20) [facility] Start: 2019 Screening for osteoporosis Bone Density Screening [facility] Start: 06-28-2017 Shingrix Vaccine (1 of 2) Shingrix Vaccine (1 of 2) [facility] Start: 03-19-2017 Screening for malignant neoplasm of breast Mammogram Screening [facility] Start: 03-13-2017 Lipid panel Lipid Screening [facility] Start: 01-15-2017 End: 01-15-2017 Appointment Appointment [facility] Work Phone: Start: 01-15-2017 End: 01-15-2017 Appointment Appointment [facility] Work Phone: Start: 08-05-2016 End: 08-16-2016 DEXA scan DEXA scan [facility] Work Phone: Start: 08-05-2016 End: 08-16-2016 X-ray exam l-s spine bending X-Ray, Spine, Lumbar, complete with bending views [facility] Work Phone: Start: 08-05-2016 End: 08-16-2016 X-ray exam of trunk spine X-Ray, Scoliosis Study [facility] Work Phone: Start: 07-19-2016 End: 07-19-2016 Follow Up Appt 6 months Follow Up Appt 6 months [facility] Work Phone: Start: 07-19-2016 End: 07-19-2016 Pulmonary Function Test - complete Pulmonary Function Test - complete [facility] Work Phone: Start: 01-30-2016 End: 01-30-2016 Follow Up Appt 6 months Follow Up Appt 6 months [facility] Work Phone: Start: 01-04-2016 End: 07-16-2016 Pulmonary Function Test - complete Pulmonary Function Test - complete [facility] Work Phone: Start: 10-26-2015 End: 07-16-2016 [facility] Work Phone: Start: 10-26-2015 End: 07-16-2016 Follow Up Appt 3 months Follow Up Appt 3 months [facility] Work Phone: Start: 10-04-2015 End: 07-16-2016 Pulmonary Function Test - complete Pulmonary Function Test - complete [facility] Work Phone: Start: 09-03-2015 End: 07-16-2016 Ct thorax w/o dye CT Chest without contrast [facility] Work Phone: Start: 07-26-2015 End: 07-16-2016 Follow Up Appt 3 months Follow Up Appt 3 months [facility] Work Phone: Start: 03-13-2015 Diabetes Screening Diabetes Screenin [facility] Start: 02-14-2015 End: 07-16-2016 Follow Up Appt 3 months Follow Up Appt 3 months [facility] Work Phone: Start: 08-23-2014 End: 07-16-2016 Follow Up Appt 6 months Follow Up Appt 6 months [facility] Work Phone: Start: 03-05-2013 Screening for malignant neoplasm of cervix Cervical Cancer Screening [facility] Start: 1999 Screening for malignant neoplasm of colon [facility] Start: 02-03-1984 Zoledronic acid therapy Alpha-1 Antitrypsin Deficiency Screening [facility] Start: 02-03-1972 Annual PCP Team Chronic Disease Visit Annual PCP Team Chronic Disease Visit [facility] Start: 02-03-1972 Depression Screening Depression Scre ening [facility] Start: 02-03-1972 Hepatitis C screening Hepatitis C [facility] End: 03-18-2025 CT Chest WO contrast CT CHEST WO IVCON Radiology Routine Bronchiectasis without complication (HCC) Lung nodules 1 Occurrences starting 02/17/2024 until 03/18/2025 [facility] Work Phone: Comment on above: 1 Occurrences starti ng 02/17/2024 until 03/18/2025 CT Chest WO contrast CT CHEST WO IVCON Radiology Routine Bronchiectasis without complication (HCC) Lung nodules 02/27/2024 12:03 PM EDT [facility] Work Phone: Patient Education LUMBAR%20RADICULOPATHY [facility] Work Phone: Immunizations Immunization Date Immunization Notes Care Provider Bárbara morgan 01-27-2012 influenza virus vacc ine, unspecified formulation [facility] Work Phone: [facility] Payers Date Payer Category Payer Medicare [employer] MEDICARE A ETNA MEDICARE PPO [id number] 2023-Present [phone] [address] [place] [address] PPO [id number] 2023 Medicare [id number] 2020 Unknown [id number] 2019 Medicare [id number] 2017 Unknown 1954 Unknown [id number] [id number]7 1954 Unknown [id number] 2.16.840.1.163391.3.579.2.717 1954 Unknown [id number] 2.16.840.1.195572.3.579.2.717 1954 Unknown [id number] 2.16.840.1.593602.3.579.2.717 1954 Unknown [id number] 2.16.840.1.828591.3.579.2.717 1954 Unknown [id number] 2.16.840.1.464872.3.579.2.717 1954 Unknown [id number] 2.16.840.1.887368.3.579.2.594 1954 Unknown [id number] 2.16.840.1.141081.3.579.2.594 1954 Unknown [id number] 2.16.840.1.603299.3.579.2.594 1954 Unknown [id number] 2.16.840.1.696791.3.579.2.594 1954 Unknown [id number] 2.16.840.1.958512.3.579.2.594 1954 Unknown [id number] 2.16.840.1.988546.3.579.2.594 1954 Unknown [id number] 2.16.840.1.271430.3.579.2.594 1954 Unknown [id number] 2.16.840.1.613772.3.579.2.594 1954 Unknown [id number] 2.16.840.1.360666.3.579.2.594 1954 Unknown [id number] 2.16.840.1.226915.3.579.2.594 1954 Unknown [id number] 2.16.840.1.924365.3.579.2.594 1954 Unknown [id number] 2.16.840.1.674555.3.579.2.594 1954 Unknown [id number] 2.16.840.1.125948.3.579.2.594 1954 Unknown [id number] 2.16.840.1.716165.3.579.2.594 Social History Date Type Detail Facility Start: 02-17-2024 [facility] History of tobacco use Current smoker [facility] History of tobacco use Cigarette Smoker C [facility] Start: 02-17-2024 Cigarettes smoked cu rrent (pack per day) - Reported 1 [facility] Start: 02-17-2024 Tobacco use and exposure Smoke less tobacco non-user [facility] Start: 02-17-2024 Alcoholic beverage intake Curr ent drinker of alcohol (finding) [facility] Start: 02-17-2024 Tobacco use panel [facility] National Score (1-10 0), lower number is lower risk 69 [facility] Start: 02-17-2024 Tobacco Comment Quit 08/2004 [facility] Start: 02-17-2024 Alcohol Comment only on vacation [facility] Start: 1955 Sex assigned at Not on file C [facility] Start: 1955 Sex assigned at Female C [facility] Start: 02-18-2024 Gender identity Identifies as female gender (finding) [facility] Medical Equipment Procedure Code Equipment Code Equipment Origin al Text Equipment Identifier Dates Patch Ventralex St Sepra Sorbaflex 2.5in Medium [place] [employer] - [id number] Start: 04-10-2016 Comment on above: Description: Ventral ex ST Hernia Patch History of Present illness Narrative 02-27-2024 Alejandrina Wen RT(R) - 02/27/2024 11:40 AM EDT Note Date & Type Note Facility 02-27-2024 History of Presen t illness Narrative Radiology Service Progress Note PATIENT NAME: Jorge Luis Lynn DATE OF SERVICE: February 27, 2024 TIME: 4:06 PM PATIENT IDENTITY VERIFICATION COMPLETED USING TWO (2) IDENTIFIERS: Name and Date of confirmed by patient verbally. FALL SCREENING: Has the patient had 2 falls in the last year or 1 fall with injury or currently using an Ambulatory Assistive Device (Walker, Cane, Wheelchair, Crutches, etc.)? No PATIENT GENDER DATA: Female. status: : No status: NO. PATIENT RELEVANT IMPLANT DATA REVIEWED: Yes PATIENT PRESENTS WITH AN IMPLANTABLE OR ATTACHED SUSTAINABILITY ANALYST: No RADIOLOGY DEPARTMENT: CT; Exam(s) Completed: Chest PERIPHERAL IV DATA: Not applicable SIGNED BY: RT Camille(R) February 27, 2024 4:06 PM documented in this encounter [facility] Progress note 02-27-2024 Note Date & Type Note Facility 02-27-2024 Note HNO ID: [id number] Author: ALEJANDRINA WEN RT(Kayla) Service: ? Author Type: Sock Examiner Type: Progress Notes Filed: 02/27/2024 16:06 Note Text: Radiology Service Progress Note PATIENT NAME: Jorge Luis Lynn DATE OF SERVICE: February 27, 2024 TIME: 4:06 PM PATIENT IDENTITY VERIFICATION COMPLETED USING TWO (2) IDENTIFIERS: Name and Date of confirmed by patient verbally. FALL SCREENING: Has the patient had 2 falls in the last year or 1 fall with injury or currently using an Ambulatory Assistive Device (Walker, Cane, Wheelchair, Crutches, etc.)? No PATIENT GENDER DATA: Female. status: : No status: NO. PATIENT RELEVANT IMPLANT DATA REVIEWED: Yes PATIENT PRESENTS WITH AN IMPLANTABLE OR ATTACHED SUSTAINABILITY ANALYST: No RADIOLOGY DEPARTMENT: CT; Exam(s) Completed: Chest PERIPHERAL IV DATA: Not applicable SIGNED BY: RT Camille(R) February 27, 2024 4:06 PM [facility] History of Present illness Narrative 02-17-2024 Melody Mao MD - 02/17/2024 12:45 PM EDT Note Date & Type Note Facility 02-17-2024 History of Presen t illness Narrative Images from the original note were not included. . 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 She does not have a history of asthma as a child nor significant allergies however she was having issues with recurrent bronchitis. Pulmonary function test showed mild obstruction and elevated exhaled nitric oxide level. She had been on Symbicort and at one time on Breo Ellipta. She stopped using her controller inhaler due to cost. She states that she was tried on Dupixent several years ago for better control of her obstructive lung disease but this caused her to have recurrent pneumonia. She does have some minimal bronchiectasis noted on chest CT as well as apical emphysema. Since starting 3 times a week azithromycin, she has not had any bronchitis or pneumonia in several years. She has mucus clearance device but does not use it since she does not have much difficulty with mucus production at this time. She decided to seek care as she has noted some increased shortness of breath, intermittent chest congestion. No significant sputum production, no wheezing or chest pain. She uses 3 L of oxygen at night. She states that she was on continuous oxygen in the past. DME: [employer] DATA: PFT: Pulmonary function test show reduced FEV1 to FVC with normal FEV1. Small airways obstruction that does not improve with bronchodilator. Diffusing capacity is normal. Imaging / Diagnostic Studies: 2020: CT chest [facility] 2019: I personally reviewed the images with description per HPI PAST MEDICAL HISTORY Diagnosis Date Asthma-COPD overlap syndrome (HCC) Diverticulosis of colon (without mention of hemorrhage) DVT (deep venous thrombosis) ([facility]) Dysplasia of cervix, unspecified Esophageal reflux Irritable bowel syndrome Lumbago Other and unspecified alcohol dependence, in remission Other genital herpes Paroxysmal ventricular tachycardia (HCC) 07/10/1999 Occurred in monitored unit while worked up for chest pain: heart cath wnl, isoproterenol provocation test unable to stimulate abnormal rhythm Pneumonia 02/03/2012 Rheumatoid arthritis (HCC) Scoliosis 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 fluticasone propionate (FLONASE NASAL) Use 2 Sprays in the nose once daily. DULoxetine (CYMBALTA) 60 mg capsule Take 60 mg by mouth once daily. cycloSPORINE (RESTASIS MULTIDOSE) 0.05 % drop Use 1 Drop in both eyes once daily. vitamin D3-folic acid 2,500 unit- 1 mg tab Take 1 tablet by mouth once daily. miSOPROStol (CYTOTEC) 100 mcg tablet Take 100 mcg by mouth four times daily. chlorpheniramine (ALLER-CHLOR) 4 mg tablet Take 4 mg by mouth every 6 hours as needed. levocetirizine 5 mg tablet Take 5 mg by mouth once daily. OXYGEN, HOME THERAPY, Inhale 3 L/min as instructed as directed. naloxone 4 mg/actuation nasal spray (NARCAN) 1 [place] by nasal (alternating) route as needed for known or suspected opioid overdose. Use 1 spray in one nostril as needed for overdose. May repeat every 2 to 3 min in alternating nostrils until medical assistance is available albuterol HFA 90 mcg/actuation HFA Inhale 2 Puffs as instructed as needed. OTC NUTRITIONAL SUPPLEMENT Take 1 tablet by mouth once daily. Biotin magnesium oxide 400 mg magnesium tab Take 1 tablet by mouth once daily. OTC NUTRITIONAL SUPPLEMENT Take 1 tablet by mouth once daily. [place] predniSONE 10 mg tablet pack Take by mouth once daily. azithromycin (ZITHROMAX) 250 mg tablet Take one on Mon, Wed, Fri albuterol HFA (PROVENTIL HFA, VENTOLIN HFA) 90 mcg/actuation inhaler Inhale 2 Puffs as instructed every 4 hours as needed. ipratropium bromide (ATROVENT) 42 mcg (0.06 %) nasal spray Use 1 [place] in the nose two times a day. sulfaSALAzine (AZULFIDINE) 500 mg tablet Take 500 mg by mouth three times a day. esomeprazole (NEXIUM) 20 mg capsule Take 20 mg by mouth daily at 6 am. potassium citrate ER (UROCIT-K) 10 mEq (1,080 mg) Take 2,160 mg by mouth once daily. hydrOXYchloroQUINE (PLAQUENIL) 200 mg tablet Take 200 mg by mouth once daily. oxyCODONE-acetaminophen (PERCOCET) 5-325 mg tablet Take 1 tablet by mouth every 4 hours as needed. gabapentin (NEURONTIN) 300 mg capsule 300am Am , 300 mg at 1500, 600 mg at bedtime denosumab (PROLIA) 60 mg/mL syrg Inject 60 mg subcutaneously one time only. Twice yearly baclofen (LIORESAL) 10 mg tablet Take 10 mg by mouth daily at bedtime. valACYclovir (VALTREX) 500 mg tablet Take 500 mg by mouth once daily. DAILY MULTIVITAMIN ORAL Take by mouth once daily. Aspirin 81 mg ORAL Tab Take 81 mg by mouth once daily. budesonide-formoterol (SYMBICORT) 160-4.5 mcg/actuation inhaler Inhale 2 Puffs as instructed two times a day. celecoxib (CELEBREX) 200 mg capsule oxyCODONE immediate release (PERCOLONE) 5 mg immediate release tablet potassium citrate ER (UROCIT-K) 5 mEq (540 mg) TbER (Patient not taking: Reported on 02/17/2024) ranitidine (ZANTAC) 150 mg tablet PHENYLEPHRINE/HYDROCODONE/CP (HYDROCODONE CP ORAL) Take by mouth. 5mg-no acetaminophen every 3-6 hours prn pain K+Sfex-Ogjtkgay-Rnyr-ManPoly (ORAMAGICRX) mwsh Use as instructed three times daily. ipratropium-albuterol (COMBIVENT RESPIMAT) 20-100 mcg/actuation mist Inhale as instructed as needed. cholecalciferol (VITAMIN D) 1,000 unit tab tablet Take 1,000 Units by mouth once daily. alendronate (FOSAMAX) 70 mg tablet Take 70 mg by mouth once each week. POLYETHYLENE GLYCOL 3350 ORAL Take by mouth as needed. hydrOXYzine HCl (ATARAX) 25 mg tablet Take 25 mg by mouth every 8 hours as needed. estradiol (ESTRACE) 0.01 % (0.1 mg/gram) vaginal cream Use small amount in vaginal opening twice a week PSEUDOEPHEDRINE HCL (SUDAFED 12 HOUR ORAL) Take by mouth. Social History Tobacco Use Smoking status: Former Current packs/day: 1.00 Average packs/day: 1 pack/day for 30.0 years (30.0 ttl pk-yrs) Types: Cigarettes Smokeless tobacco: Never Tobacco comments: Quit 08/2004 Vaping Use Vaping status: Never Used Substance Use Topics Alcohol use: Yes Comment: only on vacation Drug use: No No occupational exposure history Pets: Cats FAMILY HISTORY Problem Relation Age of Onset Cancer Mother Lung Hypertension Father other (Liver Disease [Other]) Father Cancer Sister Lung Hypertension Maternal Grandmother Diabetes Maternal Grandmother Coronary Artery Disease Paternal Grandfather PAST SURGICAL HISTORY Procedure Laterality Date ADENOIDECTOMY PRIMARY <AGE 11 Adenoidectomy COLONOSCOPY FLX DX W/COLLJ SPEC WHEN PFRMD 02/11/2011 EXTENSIVE FOOT SURGERY left big toe EXTRACTION, ERUPTED TOOTH OR EXPOSED ROOT (ELEVATION AND/OR FORCEPS REMOVAL) wisdom teeth HERNIA REPAIR W/MESH 04/10/2016 ventral HYSTERECTOMY HX 10/2015 vaginal/bladder tack up LEFT HEART CATH,PERCUTANEOUS 07/05/1999 LVF WNL, EF 55%, 10-25% stenosis 3 vessels LIG/TRNSXJ FLP TUBE ABDL/VAG APPR UNI/BI Tubal ligation PAST SURGICAL HISTORY OF 12/2013 and 12/2015 and 2017 back surgery-discectomy and lumbar fusion REPAIR FIRST ABDOMINAL WALL HERNIA 04/10/2016 S PACK PHACO 30K [id number] Right S SLING BLADDER STRESS EXERCISE REG 07/06/1999 stress test negative with excellent performance at 15 METS TX ECTOPIC W/O SALPING&/OOPHORECTOMY Ectopic WRIST Surgery 11 screws and plate PMH, Social history, family history and surgical history reviewed and updated in EMR REVIEW OF SYSTEMS: CONSTITUTIONAL: No fevers, chills, nightsweats, unintended weight loss HEENT: Chronic sinus congestion and possible allergy symptoms CARDIOVASCULAR: No chest pain, palpitations, orthopnea, edema. PULM: See HPI GI: No dysphagia/odynophagia. GERD : Failed bladder sling NEURO: No balance problems, peripheral weakness/paresthesias or numbness of concern. MUSC-SKEL: Follows with Dr. Dave for rheumatoid arthritis PSY: No concerns regarding depression, anxiety INTEGUMENTARY: No new skin changes, rashes, eczema PHYSICAL EXAMINATION: BP 113/66 Pulse 89 Temp (Src) 97.7 (Temporal) Wt 130 lb (59.0kg) SpO2 89% General Appearance: Age-appropriate female, NAD. Skin: Skin color, texture, turgor normal, no suspicious rashes or lesions. Head: Normocephalic, no masses, lesions, tenderness or abnormalities. Eyes: Sclera, conjunctiva normal. Oropharynx: No oral lesions, erythema, posterior pharyngeal cobblestoning. Neck: No JVD, no masses, no adenopathy. Lungs: Not labored, normal to percussion, no wheezes or crackles. Heart: Regular rate and rhythm, no murmurs. Extremities: No edema or clubbing. Musculoskeletal: No joint deformities effusions or active synovitis. Assessment/Plan: 1. Asthma COPD overlap -Updated pulmonary function tests show small airways obstruction with some symptoms. Recommend restarting Symbicort -Sent in prescriptions -Allergy assessment 2. Bronchiectasis, uncomplicated -Updated chest CT to evaluate for possible MAC -Continue 3 times a week azithromycin for now -Bronchopulmonary hygiene 3. Lung nodules -Update chest CT 4. Former cigarette smoker -Former smoker with sequelae of mild emphysema -Continue abstinence -No longer qualifies for lung cancer screening based on duration of smoking cessation I spent a total of 60 minutes on the date of the service which included preparing to see the patient, [id number] patient care, obtaining and/or reviewing separately obtained history, performing a medically appropriate examination, ordering medications, tests, or procedures, and independently interpreting results (not separately reported). Melody Mao MD [facility] documented in this encounter [facility] Progress note 02-17-2024 Note Date & Type Note Facility 02-17-2024 Note HNO ID: [id number] Author: MELODY MAO MD Service: ? Author Type: Physician Type: Progress Notes Filed: 02/17/2024 16:01 Note Text: . 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 She does not have a history of asthma as a child nor significant allergies however she was having issues with recurrent bronchitis. Pulmonary function test showed mild obstruction and elevated exhaled nitric oxide level. She had been on Symbicort and at one time on Breo Ellipta. She stopped using her controller inhaler due to cost. She states that she was tried on Dupixent several years ago for better control of her obstructive lung disease but this caused her to have recurrent pneumonia. She does have some minimal bronchiectasis noted on chest CT as well as apical emphysema. Since starting 3 times a week azithromycin, she has not had any bronchitis or pneumonia in several years. She has mucus clearance device but does not use it since she does not have much difficulty with mucus production at this time. She decided to seek care as she has noted some increased shortness of breath, intermittent chest congestion. No significant sputum production, no wheezing or chest pain. She uses 3 L of oxygen at night. She states that she was on continuous oxygen in the past. DME: [employer] DATA: PFT: Pulmonary function test show reduced FEV1 to FVC with normal FEV1. Small airways obstruction that does not improve with bronchodilator. Diffusing capacity is normal. Imaging / Diagnostic Studies: 2020: CT chest [facility] 2019: I personally reviewed the images with description per HPI PAST MEDICAL HISTORY Diagnosis Date Asthma-COPD overlap syndrome (HCC) Diverticulosis of colon (without mention of hemorrhage) DVT (deep venous thrombosis) ([facility]) Dysplasia of cervix, unspecified Esophageal reflux Irritable bowel syndrome Lumbago Other and unspecified alcohol dependence, in remission Other genital herpes Paroxysmal ventricular tachycardia (HCC) 07/10/1999 Occurred in monitored unit while worked up for chest pain: heart cath wnl, isoproterenol provocation test unable to stimulate abnormal rhythm Pneumonia 02/03/2012 Rheumatoid arthritis (HCC) Scoliosis 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 fluticasone propionate (FLONASE NASAL) Use 2 Sprays in the nose once daily. DULoxetine (CYMBALTA) 60 mg capsule Take 60 mg by mouth once daily. cycloSPORINE (RESTASIS MULTIDOSE) 0.05 % drop Use 1 Drop in both eyes once daily. vitamin D3-folic acid 2,500 unit- 1 mg tab Take 1 tablet by mouth once daily. miSOPROStol (CYTOTEC) 100 mcg tablet Take 100 mcg by mouth four times daily. chlorpheniramine (ALLER-CHLOR) 4 mg tablet Take 4 mg by mouth every 6 hours as needed. levocetirizine 5 mg tablet Take 5 mg by mouth once daily. OXYGEN, HOME THERAPY, Inhale 3 L/min as instructed as directed. naloxone 4 mg/actuation nasal spray (NARCAN) 1 [place] by nasal (alternating) route as needed for known or suspected opioid overdose. Use 1 spray in one nostril as needed for overdose. May repeat every 2 to 3 min in alternating nostrils until medical assistance is available albuterol HFA 90 mcg/actuation HFA Inhale 2 Puffs as instructed as needed. OTC NUTRITIONAL SUPPLEMENT Take 1 tablet by mouth once daily. Biotin magnesium oxide 400 mg magnesium tab Take 1 tablet by mouth once daily. OTC NUTRITIONAL SUPPLEMENT Take 1 tablet by mouth once daily. [place] predniSONE 10 mg tablet pack Take by mouth once daily. azithromycin (ZITHROMAX) 250 mg tablet Take one on Mon, Wed, Fri albuterol HFA (PROVENTIL HFA, VENTOLIN HFA) 90 mcg/actuation inhaler Inhale 2 Puffs as instructed every 4 hours as needed. ipratropium bromide (ATROVENT) 42 mcg (0.06 %) nasal spray Use 1 [place] in the nose two times a day. sulfaSALAzine (AZULFIDINE) 500 mg tablet Take 500 mg by mouth three times a day. esomeprazole (NEXIUM) 20 mg capsule Take 20 mg by mouth daily at 6 am. potassium citrate ER (UROCIT-K) 10 mEq (1,080 mg) Take 2,160 mg by mouth once daily. hydrOXYchloroQUINE (PLAQUENIL) 200 mg tablet Take 200 mg by mouth once daily. oxyCODONE-acetaminophen (PERCOCET) 5-325 mg tablet Take 1 tablet by mouth every 4 hours (more content not included)... [facility] Progress note 02-17-2024 Note Date & Type Note Facility 02-17-2024 Note HNO ID: [id number] Author: EDGAR NOLAN RPFT Service: ? Author Type: Respiratory Therapist Type: Progress Notes Filed: 02/17/2024 11:53 Note Text: PULM FUNCTION: Provider: Melody Mao MD Assisting Tech: Edgar Nolan RPFT Spirometry w/BD: 1 DLCO: 1 [facility] History of Present illness Narrative 02-17-2024 Edgar Nolan RPFT - 02/17/2024 11:51 AM EDT Note Date & Type Note Facility 02-17-2024 History of Presen t illness Narrative PULM FUNCTION: Provider: Melody Mao MD Assisting Tech: Edgar Nolan RPFT Spirometry w/BD: 1 DLCO: 1 documented in this encounter [facility] Evaluation note Note Date & Type Note Facility Evaluation note Diagnosis Bronchiectasis without complication (HCC) Bronchiectasis without acute exacerbation documented in this encounter [facility] Evaluation note Note Date & Type Note Facility Evaluation note Diagnosis Bronchiectasis without complication (HCC) Bronchiectasis without acute exacerbation Bronchiectasis without complication (HCC) Bronchiectasis without acute exacerbation Asthma-COPD overlap syndrome (HCC)- Primary Bronchiectasis without complication (HCC) Bronchiectasis without acute exacerbation Lung nodules Other nonspecific abnormal finding of lung field Former cigarette smoker Personal history of tobacco use, presenting hazards to health documented in this encounter [facility] Evaluation note Note Date & Type Note Facility Evaluation note Diagnosis Bronchiectasis without complication (HCC) Bronchiectasis without acute exacerbation Lung nodules Other nonspecific abnormal finding of lung field documented in this encounter [facility] Summary Purpose Family History No Family History Records FoundNo Family History Records FoundNo Family History Records FoundNo Family History Records Found Advance Directives No Advanced Directives Records FoundNo Advanced Directives Records FoundNo Advanced Directives Records FoundNo Advanced Directives Records Found Reason for Referral Specialty Diagnoses / Procedures Referred By Contac t Referred To Contact CT IMAGING Diagnoses Bronchiectasis without complication (HCC) Lung nodules Procedures CT CHEST WO IVCON DIAGNOSTIC COMPUTED TOMOGRAPHY THORAX W/O CNTRST Melody Mao MD [address] [place] [address] [place] [address] Referral ID Status Reason Start Date Expiration Date Visits Requested Visits Authorized [id number] Authorized Auto-Generat ed Referral 03/18/2025 1 1 Specialty Diagnoses / Procedures Referred By Contac t Referred To [facility] Diagnoses Bronchiectasis without complication (HCC) Procedures LUNG DIFFUSION CAPACITY (DLCO) DIFFUSING CAPACITY Melody Mao MD [address] [place] [address] [facility] [address] [place] [address] Referral ID Status Reason Start Date Expiration Date V isits Requested Visits Authorized [id number] Closed Auto-Generate d Referral 02/16/2024 03/17/2025 1 1 Specialty Diagnoses / Procedures Referred By Contac t Referred To [facility] Diagnoses Bronchiectasis without complication (HCC) Procedures SPIROMETRY - BASELINE AND POST DILATOR BRNCDILAT RSPSE SPMTRY PRE&POST-BRNCDILAT Melody Gilbert MD [address] [place] [address] [facility] [address] [place] [address] Referral ID Status Reason Start Date Expiration Date V isits Requested Visits Authorized [id number] Closed Auto-Generate d Referral 02/16/2024 03/17/2025 1 1 Additional Source Comments INFORMATION SOURCE (unrecogn ized section and content) DATE CREATED AUTHOR 10/23/2017 [facility] Healthcare DATE CREATED AUTHOR AUTHOR'S ORGANIZ ATION 04/13/2018 [facility] DATE CREATED AUTHOR AUTHOR'S ORGANIZ ATION 07/24/2021 [facility] DATE CREATED AUTHOR AUTHOR'S ORGANIZ ATION 02/29/2024 [facility] Source Comments (unrecognize d section and content) In the event this informatio n is protected by the Federal Confidentiality of Alcohol and Drug Abuse Patient Records regulations: The Federal rules restrict any use of the information to criminally investigate or prosecute any alcohol or drug abuse patient.[facility] the event this information is protected by the Federal Confidentiality of Alcohol and Drug Abuse Patient Records regulations: The Federal rules restrict any use of the information to criminally investigate or prosecute any alcohol or drug abuse patient.[facility] the event this information is protected by the Federal Confidentiality of Alcohol and Drug Abuse Patient Records regulations: The Federal rules restrict any use of the information to criminally investigate or prosecute any alcohol or drug abuse patient.[facility] Hospital[facility] the event this information is protected by the Federal Confidentiality of Alcohol and Drug Abuse Patient Records regulations: The Federal rules restrict any use of the information to criminally investigate or prosecute any alcohol or drug abuse patient.[facility] Reason for Visit (unrecogniz ed section and content) Reason Comments Spirometry Specialty Diagnoses / Procedures Referred By Contac t Referred To [facility] RESPIRATORY [facility] Diagnoses Bronchiectasis without complication (HCC) Procedures LUNG DIFFUSION CAPACITY (DLCO) DIFFUSING CAPACITY Melody Mao MD [address] [place] [address] [address] Referral ID Status Reason Start Date Expiration Date V isits Requested Visits Authorized [id number] Closed Auto-Generate d Referral 02/16/2024 03/17/2025 1 1 Specialty Diagnoses / Procedures Referred By Contac t Referred To [facility] RESPIRATORY [facility] Diagnoses Bronchiectasis without complication (HCC) Procedures SPIROMETRY - BASELINE AND POST DILATOR BRNCDILAT RSPSE SPMTRY PRE&POST-BRNCDILAT ADMN Melody Mao MD [address] [place] [address] [place] [phone] Referral ID Status Reason Start Date Expiration Date V isits Requested Visits Authorized [id number] Closed Auto-Generate d Referral 02/16/2024 03/17/2025 1 1 Reason Comments Consult COPD Reason Comments Radiology CT Specialty Diagnoses / Procedures Referred By Contac t Referred To Contact CT IMAGING Diagnoses Bronchiectasis without complication (HCC) Lung nodules Procedures CT CHEST WO IVCON DIAGNOSTIC COMPUTED TOMOGRAPHY THORAX W/O Melody Craft MD [address] [place] [address] [place] [address] Referral ID Status Reason Start Date Expiration Date V isits Requested Visits Authorized [id number] Closed Auto-Generate d Referral 02/17/2024 03/18/2025 1 1 Care Teams (unrecognized sec tion and content) Pit Hoist Operator Relationship Specialty Start Date End Date Mandy Asher MD [address] [place] [address] PCP - General Family Medicine 05/16/23 Pit Hoist Operator Relationship Specialty Start Date End Date Mandy Asher MD [address] [place] [address] PCP - General Family Medicine 05/16/23 Pit Hoist Operator Relationship Specialty Start Date End Date Mandy Asher MD [address] [place] [address] PCP - General Family Medicine 05/16/23 FOR RECORDS PERTAINING TO PATIENTS WHO ARE OR HAVE BEEN ENROLLED IN A CHEMICAL DEPENDENCY/SUBSTANCEABUSE PROGRAM, SOME INFORMATION MAY BE OMITTED. This clinical summary was aggregated from multiple sources. Caution should be exercised in using it in the provision of clinical care. This summary normalizes information from multiple sources, and as a consequence, information in this document may materially change the coding, format and clinical context of patient data. In addition, data may be omitted in some cases. CLINICAL DECISIONS SHOULD BE BASED ON THE PRIMARY CLINICAL RECORDS. [employer] [facility]. provides no warranty or guarantee of the accuracy or completeness of information in this document.
== END | disposition home or self-care (01) ==
LOC: MTLAB 16:29
PROVIDERS: PCP Family Medicine; Referring Provider Family Medicine; Visit Provider Family Medicine
DX: N39.0 Urinary tract infection, site not specified (principal)
CPT/HCPCS: 81002; 87077; 87086; 87088; 87186

== ENCOUNTER → 2024-03-15 | Outpatient (CLI) | payer MEDICARE, SELFPAY ==
[2024-03-15 17:57] LABS: Absolute Lymphocyte Count 1.99 X10^3/uL (0.83-4.51); Absolute Neutrophil Count 3.4 X10^3/uL (2.0-7.7); Basophil# 0.05 X10^3/uL; Basophil% 0.8 % (0-1); Eosinophil# 0.07 X10^3/uL; Eosinophils% 1.2 % (0-5); Hematocrit 38.1 % (37-47); Hemoglobin 12.4 g/dL (12.0-15.0); Lymphocyte # 1.99 X10^3/ul (0.83-4.51); Lymphocyte % 32.8 % (19-41); Mean Corp Hgb Conc 32.5 g/dL (32-36); Mean Corpuscular Hgb 35.9 pg (27.0-32.0); Mean Corpuscular Volume 110.4 fL (81-99); Mean Platelet Vol. 9.5 fl (6.2-12.0); Monocyte# 0.52 X10^3/uL; Monocyte% 8.6 % (0-10); NRBC Flagged by Analyzer 0 % (0-5); Neutrophil # 3.41 X10^3/uL (2.7-7.7); Neutrophil % 56.3 % (47-70); Platelet Count 271 K/mm3 (150-450); RBC Distribution Width CV 13.3 % (11.6-14.6); RBC Distribution Width SD 54.9 fl (35.1-43.9); Red Blood Count 3.45 M/mm3 (4.2-5.4); White Blood Count 6.1 K/mm3 (4.4-11.0)
[2024-03-15 18:21] LABS: ALB/GLOB Ratio 1.3 RATIO (0.9-2.4); AST(SGOT) 25 U/L (15-37); Alanine Aminotransfer ALT/SGPT 31 U/L (13-56); Albumin, Serum 3.9 g/dL (3.2-5.0); Alkaline Phosphatase 45 U/L (45-117); Anion Gap 9 (5-15); BUN 15 mg/dL (7-18); BUN/Creat Ratio 18.3 RATIO (10-20); Calcium,Total 8.7 mg/dL (8.5-10.1); Chloride 106 mmol/L (98-107); Creatinine, Serum 0.82 mg/dL (0.55-1.02); EST Glomerular Filtration Rate 73 mL/min (>60); Est Glom Filt Rate - Afr Amer 89 mL/min (>60); Globulin 2.9 g/dL (2.2-4.2); Glucose 90 mg/dL (74-106); Potassium 3.6 mmol/L (3.5-5.1); Protein, Total 6.8 g/dL (6.4-8.2); Sodium Level 141 mmol/L (136-145)
== END | disposition home or self-care (01) ==
PROVIDERS: PCP Family Medicine; Referring Provider Internal Medicine Rheumatology; Visit Provider Internal Medicine Rheumatology
DX: M06.4 Inflammatory polyarthropathy (principal); M35.00 Sjogren syndrome, unspecified; Z79.899 Other long term (current) drug therapy
CPT/HCPCS: 36415; 80053; 85025

== ENCOUNTER → 2024-03-18 | Outpatient (CLI) | payer MEDICARE, SELFPAY | END | disposition home or self-care (01) | PROVIDERS: PCP Family Medicine; Referring Provider Family Medicine; Visit Provider Family Medicine | DX: M81.0 Age-related osteoporosis without current pathological fracture (principal) | CPT/HCPCS: 77080 ==

== ENCOUNTER → 2024-06-07 | Outpatient (CLI) | payer MEDICARE, SELFPAY ==
[2024-06-07 17:44] LABS: Absolute Lymphocyte Count 2.24 X10^3/uL (0.83-4.51); Absolute Neutrophil Count 3.2 X10^3/uL (2.0-7.7); Basophil# 0.05 X10^3/uL; Basophil% 0.8 % (0-1); Eosinophils% 1.6 % (0-5); Lymphocyte # 2.24 X10^3/ul (0.83-4.51); Lymphocyte % 35.8 % (19-41); Mean Corp Hgb Conc 31.6 g/dL (32-36); Mean Corpuscular Hgb 34.5 pg (27.0-32.0); Mean Corpuscular Volume 109.2 fL (81-99); Monocyte# 0.63 X10^3/uL; Monocyte% 10.1 % (0-10); NRBC Flagged by Analyzer 0 % (0-5); Neutrophil % 51.2 % (47-70); Platelet Count 254 K/mm3 (150-450); RBC Distribution Width CV 13.9 % (11.6-14.6); RBC Distribution Width SD 56.7 fl (35.1-43.9); Red Blood Count 3.48 M/mm3 (4.2-5.4); White Blood Count 6.3 K/mm3 (4.4-11.0)
[2024-06-07 18:31] LABS: ALB/GLOB Ratio 1.2 RATIO (0.9-2.4); AST(SGOT) 33 U/L (15-37); Alanine Aminotransfer ALT/SGPT 42 U/L (13-56); Albumin, Serum 3.7 g/dL (3.2-5.0); Alkaline Phosphatase 40 U/L (45-117); Anion Gap 6 (5-15); BUN 19 mg/dL (7-18); BUN/Creat Ratio 26.2 RATIO (10-20); Calcium,Total 8.6 mg/dL (8.5-10.1); Chloride 110 mmol/L (98-107); Creatinine, Serum 0.72 mg/dL (0.55-1.02); EST Glomerular Filtration Rate 85 mL/min (>60); Est Glom Filt Rate - Afr Amer 102 mL/min (>60); Globulin 3.1 g/dL (2.2-4.2); Glucose 87 mg/dL (74-106); Potassium 3.9 mmol/L (3.5-5.1); Protein, Total 6.8 g/dL (6.4-8.2); Sodium Level 139 mmol/L (136-145)
== END | disposition home or self-care (01) ==
LOC: MTLAB 15:36
PROVIDERS: PCP Family Medicine; Referring Provider Internal Medicine Rheumatology; Visit Provider Internal Medicine Rheumatology
DX: M06.4 Inflammatory polyarthropathy (principal); M79.645 Pain in left finger(s); M35.00 Sjogren syndrome, unspecified
CPT/HCPCS: 36415; 80053; 85025

== ENCOUNTER → 2024-06-24 | Outpatient (CLI) | payer MEDICARE, SELFPAY ==
--- NOTE | 2024-06-24 15:51 | RAD_ITS ---
PROCEDURE: BILATERAL TEMPOROMANDIBULAR JOINTS REASON FOR EXAM: Left temporomandibular joint pain. TECHNIQUE: Four views of the temporomandibular joints. Open and closed mouth views. COMPARISON: None. FINDINGS: No fractures are identified. No dislocations. No osseous lesions involving the mandible. Soft tissues unremarkable. RAD/Temporo-Mandibular Jt Dar IMPRESSION: Unremarkable bilateral temporomandibular joints. Reading Location: [facility]
== END | disposition home or self-care (01) ==
LOC: MTRAD 15:41
PROVIDERS: PCP Family Medicine; Referring Provider Anesthesiology Pain Medicine; Visit Provider Anesthesiology Pain Medicine
DX: M26.622 Arthralgia of left temporomandibular joint (principal)
CPT/HCPCS: 70330

== ENCOUNTER → 2024-07-08 | Outpatient (CLI) | payer MEDICARE, SELFPAY ==
--- NOTE | 2024-07-08 09:57 | RAD_ITS ---
PROCEDURE: CERV SPINE OBL/FLEX/EXT COMP REASON FOR EXAM: Jaw and neck pain. TECHNIQUE: 6 views of the cervical spine were obtained including flexion-extension and oblique views.. COMPARISON: Comparison is made with prior study dated December 26, 2022. FINDINGS: Normal vertebral body heights. No visible fracture. Mild degree of disc space narrowing at the C5-C6 and C6-C7 levels with anterior spondylosis at the C6-C7 level. No significant neural foraminal stenosis is seen. Facet joint osteoarthritis. Normal alignment. Prevertebral soft tissues are unremarkable. RAD/Cerv Spine Obl/Flex/Ext Comp IMPRESSION: MILD CERVICAL DEGENERATIVE CHANGES. Reading Location: [facility]
== END | disposition home or self-care (01) ==
LOC: MTRAD 09:55
PROVIDERS: PCP Family Medicine; Referring Provider Anesthesiology Pain Medicine; Visit Provider Anesthesiology Pain Medicine
DX: M50.30 Other cervical disc degeneration, unspecified cervical region (principal)
CPT/HCPCS: 72052

== ENCOUNTER → 2024-08-02 | Outpatient (CLI) | payer MEDICARE, SELFPAY ==
[2024-08-02 18:18] LABS: Absolute Lymphocyte Count 1.45 X10^3/uL (0.83-4.51); Absolute Neutrophil Count 5.4 X10^3/uL (2.0-7.7); Basophil# 0.08 X10^3/uL; Basophil% 1.1 % (0-1); Eosinophil# 0.04 X10^3/uL; Eosinophils% 0.5 % (0-5); Hematocrit 41.3 % (37-47); Hemoglobin 13.6 g/dL (12.0-15.0); Lymphocyte # 1.45 X10^3/ul (0.83-4.51); Lymphocyte % 19.2 % (19-41); Mean Corp Hgb Conc 32.9 g/dL (32-36); Mean Corpuscular Hgb 36.4 pg (27.0-32.0); Mean Corpuscular Volume 110.4 fL (81-99); Mean Platelet Vol. 9.2 fl (6.2-12.0); Monocyte# 0.56 X10^3/uL; Monocyte% 7.4 % (0-10); NRBC Flagged by Analyzer 0 % (0-5); Neutrophil # 5.41 X10^3/uL (2.7-7.7); Neutrophil % 71.4 % (47-70); Platelet Count 344 K/mm3 (150-450); RBC Distribution Width CV 13.2 % (11.6-14.6); RBC Distribution Width SD 53.7 fl (35.1-43.9); Red Blood Count 3.74 M/mm3 (4.2-5.4); White Blood Count 7.6 K/mm3 (4.4-11.0)
[2024-08-02 18:31] LABS: ALB/GLOB Ratio 1.9 RATIO (0.9-2.4); AST(SGOT) 34 U/L (<=31); Alanine Aminotransfer ALT/SGPT 50 U/L (<=34); Albumin, Serum 4.6 g/dL (3.4-4.8); Alkaline Phosphatase 41 U/L (35-104); Anion Gap 15 (5-15); BUN 19 mg/dL (4-19); BUN/Creat Ratio 19.2 RATIO (10-20); Calcium,Total 10.4 mg/dL (7.6-11.0); Carbon Dioxide 21.3 mmol/L (21.0-32.0); Chloride 105 mmol/L (98-108); Creatinine, Serum 0.97 mg/dL (0.70-1.20); EST Glomerular Filtration Rate 63 (>60); Globulin 2.4 g/dL (2.2-4.2); Glucose 94 mg/dL (70-99); Potassium 3.7 mmol/L (3.3-5.1); Sodium Level 141 mmol/L (133-145); Total Bilirubin 0.75 mg/dL (0.00-1.30)
== END | disposition home or self-care (01) ==
LOC: MTLAB 15:07
PROVIDERS: PCP Family Medicine; Referring Provider Internal Medicine Rheumatology; Visit Provider Internal Medicine Rheumatology
DX: M06.4 Inflammatory polyarthropathy (principal); M25.512 Pain in left shoulder; M35.00 Sjogren syndrome, unspecified
CPT/HCPCS: 36415; 80053; 85025

== ENCOUNTER → 2024-08-11 | Outpatient (CLI) | payer MEDICARE, SELFPAY ==
--- NOTE | 2024-08-11 11:02 | US_ITS ---
PROCEDURE: LIVER (USLI), 08/11/2024 REASON FOR EXAM: ELEVATED LI ENZYMES COMPARISON: None FINDINGS: Examination considerably limited due to shadowing bowel gas. Liver: Grossly unremarkable. 12.3 cm in length. Gallbladder: No visualized stones, sludge, wall thickening or pericholecystic fluid. Reportedly, sonographic Pinto's was negative. Biliary tree: Unremarkable. CBD measures 5 mm. Pancreas: Partially obscured by shadowing bowel gas, grossly unremarkable as visualized. Right kidney: Not well seen due to shadowing bowel gas. Other: No visualized free fluid. US/Liver IMPRESSION: 1. Grossly unremarkable appearance of the hepatic parenchyma. No biliary dilat ation. 2. Additional description as above. Reading Location: [id number]
== END | disposition home or self-care (01) ==
PROVIDERS: PCP Family Medicine; Referring Provider Internal Medicine Rheumatology; Visit Provider Internal Medicine Rheumatology
DX: R74.8 Abnormal levels of other serum enzymes (principal); Z79.899 Other long term (current) drug therapy
CPT/HCPCS: 76705

== ENCOUNTER → 2024-08-24 | Outpatient (CLI) | payer MEDICARE, SELFPAY ==
[2024-08-24 18:35] LABS: ALB/GLOB Ratio 1.7 RATIO (0.9-2.4); AST(SGOT) 30 U/L (<=31); Alanine Aminotransfer ALT/SGPT 30 U/L (<=34); Albumin, Serum 4.3 g/dL (3.4-4.8); Alkaline Phosphatase 35 U/L (35-104); Anion Gap 11 (5-15); BUN 25 mg/dL (4-19); BUN/Creat Ratio 30.3 RATIO (10-20); Calcium,Total 9.8 mg/dL (7.6-11.0); Carbon Dioxide 25.4 mmol/L (21.0-32.0); Chloride 101 mmol/L (98-108); Creatinine, Serum 0.81 mg/dL (0.70-1.20); EST Glomerular Filtration Rate 78 (>60); Globulin 2.5 g/dL (2.2-4.2); Glucose 91 mg/dL (70-99); Protein, Total 6.7 g/dL (5.9-8.4); Sodium Level 138 mmol/L (133-145); Total Bilirubin 0.48 mg/dL (0.00-1.30)
== END | disposition home or self-care (01) ==
LOC: MTLAB 14:22
PROVIDERS: PCP Family Medicine; Referring Provider Internal Medicine Rheumatology; Visit Provider Internal Medicine Rheumatology
DX: M06.4 Inflammatory polyarthropathy (principal); Z79.899 Other long term (current) drug therapy; M35.00 Sjogren syndrome, unspecified
CPT/HCPCS: 36415; 80053

== ENCOUNTER → 2024-09-24 | Outpatient (CLI) | payer MEDICARE, SELFPAY ==
--- NOTE | 2024-09-24 11:59 | BI_ITS ---
EXAM: SCRN MAMM (CAD)W/LEON BILAT 09/24/2024 CLINICAL HISTORY: F, Age 69 y/o , BIANNUAL SCREEN TECHNIQUE: Bilateral screening digital breast tomosynthesis with 2D and 3D images. Computer aided detection. COMPARISON: Prior exam(s) dated 12/06/2021 and 12/12/2021. FINDINGS: TISSUE DENSITY: The breast tissue is heterogenously dense, which may obscure small masses. The mammogram demonstrates that the patient has dense breasts. Supplemental screening with whole breast ultrasound or MRI may be considered for further evaluation. Bilateral Breast Mammographic Findings: There are a few circumscribed masses scattered throughout the right breast, on the prior ultrasound of 12/12/2021 these represented benign cysts. Otherwise, there are no suspicious masses, grouped calcifications or architectural distortions in either breast. BI/SCRN MAMM (CAD)W/LEON BILAT IMPRESSION: Right Breast: BIRADS 2 BENIGN FINDING. Left Breast: BIRADS 1 NEGATIVE. OVERALL FINAL ASSESSMENT: BIRADS 2 BENIGN FINDING. RECOMMENDATION: Routine annual follow-up in 1 Year A letter with findings and recommendations will be mailed to the patient. Reading Location: [id number]
== END | disposition home or self-care (01) ==
LOC: OPBI 11:58
PROVIDERS: PCP Family Medicine; Referring Provider Family Medicine; Visit Provider Family Medicine
DX: Z12.31 Encounter for screening mammogram for malignant neoplasm of breast (principal)
CPT/HCPCS: 77063; 77067

== ENCOUNTER → 2024-10-22 | Outpatient (CLI) | payer MEDICARE, SELFPAY ==
[2024-10-22 12:35] LABS: Absolute Lymphocyte Count 1.82 X10^3/uL (0.83-4.51); Absolute Neutrophil Count 4.2 X10^3/uL (2.0-7.7); Basophil# 0.05 X10^3/uL; Basophil% 0.7 % (0-1); Eosinophils% 1.5 % (0-5); Hematocrit 43.9 % (37-47); Hemoglobin 14.5 g/dL (12.0-15.0); Lymphocyte # 1.82 X10^3/ul (0.83-4.51); Lymphocyte % 27.1 % (19-41); Mean Corpuscular Hgb 34.1 pg (27.0-32.0); Mean Corpuscular Volume 103.3 fL (81-99); Mean Platelet Vol. 10.2 fl (6.2-12.0); Monocyte# 0.57 X10^3/uL; Monocyte% 8.5 % (0-10); NRBC Flagged by Analyzer 0 % (0-5); Neutrophil # 4.15 X10^3/uL (2.7-7.7); Neutrophil % 61.9 % (47-70); Platelet Count 280 K/mm3 (150-450); RBC Distribution Width CV 12.5 % (11.6-14.6); RBC Distribution Width SD 47.3 fl (35.1-43.9); Red Blood Count 4.25 M/mm3 (4.2-5.4); White Blood Count 6.7 K/mm3 (4.4-11.0)
[2024-10-22 12:50] LABS: ALB/GLOB Ratio 1.6 RATIO (0.9-2.4); AST(SGOT) 33 U/L (<=31); Alanine Aminotransfer ALT/SGPT 37 U/L (<=34); Albumin, Serum 4.1 g/dL (3.4-4.8); Alkaline Phosphatase 55 U/L (35-104); Anion Gap 10 (5-15); BUN 18 mg/dL (4-19); BUN/Creat Ratio 20.3 RATIO (10-20); Calcium,Total 9.2 mg/dL (7.6-11.0); Carbon Dioxide 26.5 mmol/L (21.0-32.0); Chloride 105 mmol/L (98-108); EST Glomerular Filtration Rate 69 (>60); Globulin 2.6 g/dL (2.2-4.2); Glucose 71 mg/dL (70-99); Potassium 4.1 mmol/L (3.3-5.1); Protein, Total 6.7 g/dL (5.9-8.4); Sodium Level 142 mmol/L (133-145); Total Bilirubin 0.96 mg/dL (0.00-1.30)
== END | disposition home or self-care (01) ==
LOC: MTLAB 11:26
PROVIDERS: PCP Family Medicine; Referring Provider Internal Medicine Rheumatology; Visit Provider Internal Medicine Rheumatology
DX: M06.4 Inflammatory polyarthropathy (principal); Z79.899 Other long term (current) drug therapy
CPT/HCPCS: 36415; 80053; 85025

== ENCOUNTER → 2024-11-08 | Outpatient (CLI) | payer MEDICARE, SELFPAY ==
[2024-11-08 12:20] LABS: Hematocrit 41.4 % (37-47); Hemoglobin 13.6 g/dL (12.0-15.0); Immature Granulocytes Count 0.040 X10^3/uL (0.0-0.0); Mean Corp Hgb Conc 32.9 g/dL (32-36); Mean Corpuscular Volume 102.7 fL (81-99); Mean Platelet Vol. 10.3 fl (6.2-12.0); NRBC Flagged by Analyzer 0 % (0-5); Platelet Count 263 K/mm3 (150-450); RBC Distribution Width CV 12.6 % (11.6-14.6); RBC Distribution Width SD 47.3 fl (35.1-43.9); Red Blood Count 4.03 M/mm3 (4.2-5.4); White Blood Count 9.8 K/mm3 (4.4-11.0)
[2024-11-08 13:09] LABS: AST(SGOT) 29 U/L (<=31); Alanine Aminotransfer ALT/SGPT 39 U/L (<=34); Albumin, Serum 4.2 g/dL (3.4-4.8); Alkaline Phosphatase 49 U/L (35-104); Anion Gap 12 (5-15); BUN 24 mg/dL (4-19); BUN/Creat Ratio 28.7 RATIO (10-20); Calcium,Total 9.4 mg/dL (7.6-11.0); Carbon Dioxide 25.7 mmol/L (21.0-32.0); Chloride 104 mmol/L (98-108); Globulin 2.3 g/dL (2.2-4.2); Glucose 91 mg/dL (70-99); Lipase 52 U/L (13-75); Potassium 3.6 mmol/L (3.3-5.1)
== END | disposition home or self-care (01) ==
LOC: MFPLAB 10:29
PROVIDERS: PCP Family Medicine; Referring Provider Family Medicine; Visit Provider Family Medicine
DX: M48.061 Spinal stenosis, lumbar region without neurogenic claudication (principal); K76.0 Fatty (change of) liver, not elsewhere classified; Z79.1 Long term (current) use of non-steroidal anti-inflammatories (NSAID); D75.89 Other specified diseases of blood and blood-forming organs
CPT/HCPCS: 36415; 80053; 83690; 84443; 85025

== ENCOUNTER → 2024-11-18 | Outpatient (CLI) | payer MEDICARE, SELFPAY ==
[2024-11-18 18:19] LABS: Hematocrit 42.2 % (37-47); Hemoglobin 14.0 g/dL (12.0-15.0); Immature Granulocytes Count 0.060 X10^3/uL (0.0-0.0); Mean Corp Hgb Conc 33.2 g/dL (32-36); Mean Corpuscular Volume 101.9 fL (81-99); Mean Platelet Vol. 9.8 fl (6.2-12.0); NRBC Flagged by Analyzer 0 % (0-5); Platelet Count 244 K/mm3 (150-450); RBC Distribution Width CV 13.4 % (11.6-14.6); RBC Distribution Width SD 50.4 fl (35.1-43.9); Red Blood Count 4.14 M/mm3 (4.2-5.4); White Blood Count 8.2 K/mm3 (4.4-11.0)
[2024-11-18 18:46] LABS: AST(SGOT) 38 U/L (<=31); Alanine Aminotransfer ALT/SGPT 58 U/L (<=34); Albumin, Serum 4.2 g/dL (3.4-4.8); Alkaline Phosphatase 46 U/L (35-104); Anion Gap 12 (5-15); BUN 15 mg/dL (4-19); BUN/Creat Ratio 18.9 RATIO (10-20); Calcium,Total 9.2 mg/dL (7.6-11.0); Carbon Dioxide 23.7 mmol/L (21.0-32.0); Chloride 104 mmol/L (98-108); Globulin 2.4 g/dL (2.2-4.2); Glucose 98 mg/dL (70-99); Potassium 4.1 mmol/L (3.3-5.1)
== END | disposition home or self-care (01) ==
PROVIDERS: PCP Family Medicine; Referring Provider Family Medicine; Visit Provider Internal Medicine Rheumatology
DX: M48.061 Spinal stenosis, lumbar region without neurogenic claudication (principal); M06.4 Inflammatory polyarthropathy; K76.0 Fatty (change of) liver, not elsewhere classified; Z79.1 Long term (current) use of non-steroidal anti-inflammatories (NSAID); Z79.899 Other long term (current) drug therapy
CPT/HCPCS: 36415; 80053; 85025

== ENCOUNTER → 2024-12-23 | Outpatient (CLI) | payer MEDICARE, SELFPAY ==
[2024-12-23 18:01] LABS: Hematocrit 45.0 % (37-47); Hemoglobin 14.7 g/dL (12.0-15.0); Immature Granulocytes Count 0.040 X10^3/uL (0.0-0.0); Mean Corp Hgb Conc 32.7 g/dL (32-36); Mean Corpuscular Volume 101.6 fL (81-99); Mean Platelet Vol. 10.0 fl (6.2-12.0); NRBC Flagged by Analyzer 0 % (0-5); Platelet Count 251 K/mm3 (150-450); RBC Distribution Width CV 13.3 % (11.6-14.6); RBC Distribution Width SD 50.4 fl (35.1-43.9); Red Blood Count 4.43 M/mm3 (4.2-5.4); White Blood Count 8.6 K/mm3 (4.4-11.0)
[2024-12-23 19:34] LABS: AST(SGOT) 30 U/L (<=31); Alanine Aminotransfer ALT/SGPT 32 U/L (<=34); Albumin, Serum 4.2 g/dL (3.4-4.8); Alkaline Phosphatase 46 U/L (35-104); Anion Gap 17 (5-15); BUN 24 mg/dL (4-19); BUN/Creat Ratio 28.7 RATIO (10-20); Calcium,Total 9.4 mg/dL (7.6-11.0); Carbon Dioxide 20.4 mmol/L (21.0-32.0); Chloride 103 mmol/L (98-108); Globulin 2.7 g/dL (2.2-4.2); Glucose 77 mg/dL (70-99); Potassium 3.9 mmol/L (3.3-5.1)
== END | disposition home or self-care (01) ==
LOC: MFPLAB 12:16
PROVIDERS: PCP Family Medicine; Visit Provider Internal Medicine Rheumatology
DX: M06.4 Inflammatory polyarthropathy (principal); Z79.899 Other long term (current) drug therapy
CPT/HCPCS: 36415; 80053; 85025

== ENCOUNTER → 2025-01-13 | Outpatient (CLI) | payer MEDICARE, SELFPAY ==
[2025-01-13 15:13] LABS: Hematocrit 42.8 % (37-47); Hemoglobin 14.0 g/dL (12.0-15.0); Immature Granulocytes Count 0.030 X10^3/uL (0.0-0.0); Mean Corp Hgb Conc 32.7 g/dL (32-36); Mean Corpuscular Volume 100.9 fL (81-99); Mean Platelet Vol. 10.1 fl (6.2-12.0); NRBC Flagged by Analyzer 0 % (0-5); Platelet Count 240 K/mm3 (150-450); RBC Distribution Width CV 13.6 % (11.6-14.6); RBC Distribution Width SD 51.3 fl (35.1-43.9); Red Blood Count 4.24 M/mm3 (4.2-5.4); White Blood Count 6.8 K/mm3 (4.4-11.0)
[2025-01-13 15:27] LABS: AST(SGOT) 50 U/L (<=31); Alanine Aminotransfer ALT/SGPT 57 U/L (<=34); Albumin, Serum 4.0 g/dL (3.4-4.8); Alkaline Phosphatase 43 U/L (35-104); Anion Gap 12 (5-15); BUN 18 mg/dL (4-19); BUN/Creat Ratio 22.4 RATIO (10-20); Calcium,Total 9.0 mg/dL (7.6-11.0); Carbon Dioxide 25.0 mmol/L (21.0-32.0); Chloride 107 mmol/L (98-108); Globulin 2.3 g/dL (2.2-4.2); Glucose 90 mg/dL (70-99); Potassium 3.6 mmol/L (3.3-5.1)
== END | disposition home or self-care (01) ==
LOC: MTLAB 11:06
PROVIDERS: PCP Family Medicine; Referring Provider Internal Medicine Rheumatology; Visit Provider Internal Medicine Rheumatology
DX: M06.4 Inflammatory polyarthropathy (principal); Z79.899 Other long term (current) drug therapy
CPT/HCPCS: 36415; 80053; 85025

== ENCOUNTER → 2025-01-14 | Outpatient (CLI) | payer MEDICARE, SELFPAY ==
--- NOTE | 2025-01-14 12:35 | RAD_ITS ---
PROCEDURE: CHEST PA AND LATERAL 01/14/2025 REASON FOR EXAM: PAIN TECHNIQUE: Procedure Code: RADCXR Modality: DX Procedure: CHEST PA AND LATERAL COMPARISON: Right rib series 08/04/2023. RAD/Chest PA and Lateral IMPRESSION: Degenerative changes, scoliosis, and partially visualized lumbar surgery noted. Generalized osteopenia is present. Lungs appear clear of acute disease. No pleural effusion or pneumothorax is seen. The cardiomediastinal silhouette is stable, without evidence of cardiomegaly. Reading Location: [place] [address]
[2025-01-18 13:08] LABS: QNTFERON TB Mitogen Value > 10.00 IU/mL (.); QNTFERON TB Nil Value 0.05 IU/mL (.); QNTFERON TB1+ Ag Value 0.05 IU/mL (.); QNTFERON TB2+ Ag Value 0.06 IU/mL (.); QNTIFERON TB Positive Criteria Negative (Negative)
== END | disposition home or self-care (01) ==
PROVIDERS: PCP Family Medicine; Referring Provider Internal Medicine Rheumatology; Visit Provider Internal Medicine Rheumatology
DX: M06.09 Rheumatoid arthritis without rheumatoid factor, multiple sites (principal); M25.512 Pain in left shoulder
CPT/HCPCS: 36415; 71046; 86480

== ENCOUNTER → 2025-04-19 | Outpatient (CLI) | payer MEDICARE, SELFPAY ==
[2025-04-19 15:19] LABS: Hematocrit 44.5 % (37-47); Hemoglobin 14.7 g/dL (12.0-15.0); Immature Granulocytes Count 0.030 X10^3/uL (0.0-0.0); Mean Corp Hgb Conc 33.0 g/dL (32-36); Mean Corpuscular Volume 100.0 fL (81-99); Mean Platelet Vol. 10.1 fl (6.2-12.0); NRBC Flagged by Analyzer 0 % (0-5); Platelet Count 238 K/mm3 (150-450); RBC Distribution Width CV 12.8 % (11.6-14.6); RBC Distribution Width SD 47.4 fl (35.1-43.9); Red Blood Count 4.45 M/mm3 (4.2-5.4); White Blood Count 7.5 K/mm3 (4.4-11.0)
[2025-04-19 15:44] LABS: AST(SGOT) 33 U/L (<=31); Alanine Aminotransfer ALT/SGPT 36 U/L (<=34); Albumin, Serum 4.2 g/dL (3.4-4.8); Alkaline Phosphatase 40 U/L (35-104); Anion Gap 10 (5-15); BUN 22 mg/dL (4-19); BUN/Creat Ratio 22.1 RATIO (10-20); Calcium,Total 9.8 mg/dL (7.6-11.0); Carbon Dioxide 28.2 mmol/L (21.0-32.0); Chloride 103 mmol/L (98-108); Globulin 2.6 g/dL (2.2-4.2); Glucose 87 mg/dL (70-99); Potassium 3.7 mmol/L (3.3-5.1)
--- OUTSIDE RECORDS SUMMARY | 2025-04-19 19:31 | XMS RPT_ITS | CCD ---
Author Organization [facility] Care Team Providers Care Manager Union Name Role Phone Mk Rubens Key Unavailable Woody Alejandro Daryn Unavailable [phone] Tizzano, Dav P Unavailable Unavailable No Doctor [...] Assigned, Nodr Unavailable Unavail able Rubens Terrazas Yesi Unavailable MANDY ASHER A Primary Care Unavailable TASHIA GRIFFIN Attending Unavailable TASHIA GRIFFIN Admitting Unavailable LB, MANDY A Primary Care Unavailable CROW RICO JR. Referring Unavailable TASHIA GRIFFIN Attending Unavailable LB, MANDY A Primary Care Unavailable TASHIA GRIFFIN Referring Unavailable TASHIA GRIFFIN Attending Unavailable LB, MANDY A Primary Care Unavailable TASHIA GRIFFIN Referring Unavailable TASHIA GRIFFIN Attending Unavailable LB, MANDY A Primary Care Unavailable TASHIA GRIFFIN Attending Unavailable TASHIA GRIFFIN Referring Unavailable LB, MANYD A Primary Care Unavailable TASHIA GRIFFIN Attending Unavailable TASHIA GRIFFIN Referring Unavailable ASHER, MANDY A Primary Care Unavailable LB, MANDY A Primary Care Unavailable DIMEO, MARA A Attending Unavailable MARA HUMPHRIES Referring Unavailable ASHER, MANDY A Primary Care Unavailable YIN BRIDGES [place] Attending Unavailable TASHIA GRIFFIN Referring Unavailable ELIAS, TAHSIA M Attending Unavailable ELIAS, TASHIA M Referring Unavailable ASHER, MANDY A Primary Care Unavailable ASHER, MANDY A Primary Care Unavailable ASHER, MANDY A Primary Care Unavailable ASHER, MANDY A Primary Care Unavailable LB, MANDY A Primary Care Unavailable Dr. Mandy Asher Primary Care Provider [phone] Mandy Asher Referring Provider [phone] Dr. Rubens Terrazas Attending Provider Dr. Mandy Asher Primary Care Provider [phone] Mandy Asher Referring Provider [phone] Dr. Gregoria Dela Cruz Attending Provider Dr. Rubens Terrazas Attending Provider Dr. Mandy Asher Primary Care Provider [phone] aMndy Asher Referring Provider [phone] Dr. Rubens Terrazas Attending Provider Dr. Mandy Asher Primary Care Provider [phone] Mandy Asher Referring Provider [phone] Dr. Rubens Terrazas Attending Provider [phone] Lb LEES, Mandy Valdez Primary Care Provider [phone] Mandy Asher MD Primary Care Provider Dr. Rosa Dave MD Attending Provider Jolie LEES, Dr. Lee Referring Provider Pool LEES, Dr. Casillas Attending Provider Pool LEES, Dr. Casillas Referring Provider [phone] Lb LEES, Dr. Jordan Referring Provider [phone] Savanah Yuan Attending Provider [phone] Lb LEES, Dr. Jordan Attending Provider [phone] Lb LEES, Dr. Jordan Primary Care Provider Pool LEES, Dr. Casillas Attending Provider Pool LEES, Dr. Casillas Referring Provider Jolie LEES, Dr. Lee Attending Provider Jolie LEES, Dr. Lee Referring Provider Lb LEES, Dr. Jordan Primary Care Provider [phone] Lb LEES, Dr. Jordan Primary Care Provider [phone] Lb LEES, Dr. Jordan Referring Provider [phone] Lb LEES, Dr. Jordan Other Provider ASHER, MANDY A Primary Care Unavailable BROWN, MELODY VALDEMAR Referring Unavailable ASHER, MANDY A Primary Care Unavailable BROWN, MELODY VALDEMAR Referring Unavailable BROWN, MELODY VALDEMAR Attending Unavailable ASHER, MANDY A Primary Care Unavailable BROWN, MELODY VALDEMAR Attending Unavailable ASHER, MANDY A Primary Care Unavailable ASHER, MANDY A Primary Care Unavailable ASHER, MANDY A Primary Care Unavailable BROWN, MELODY VALDEMAR Attending Unavailable ASHER, MANDY A Primary Care Unavailable BROWN, MELODY VALDEMAR Referring Unavailable ASHER, MANDY A Primary Care Unavailable BROWN, MELODY VALDEMAR Referring Unavailable Lb LEES, Dr. Jordan Primary Care Provider Jolie LEES, Dr. Lee Attending Provider Jolie LEES, Dr. Lee Referring Provider Asher, Mandy Referring Unavailable Asher, Mandy Attending Unavailable Asher, Mandy Primary Care Unavailable Vellanki, Rosa Attending Unavailable Vellanki, Rosa Referring Unavailable Asher, Mandy Primary Care Unavailable Reji Muhammad Referring Unavailable Asher, Mandy Primary Care Unavailable Reji Muhammad Attending Unavailable Vellanki, Rosa Referring Unavailable Billlanki, Rosa Attending Unavailable Asher, Mandy Primary Care Unavailable Asher, Mandy Primary Care Unavailable Vinny Lanza Referring Unavailable Vinny Lanza Attending Unavailable Billlansugey, Rosa Attending Unavailable Vellanki, Rosa Referring Unavailable Asher, Mandy Primary Care Unavailable Asher, Mandy Primary Care Unavailable Vinny Lanza Referring Unavailable Vinny Lanza Attending Unavailable Jolie, Rosa Attending Unavailable Vellanki, Rosa Referring Unavailable Asher, Mandy Primary Care Unavailable Vellanki, Rosa Attending Unavailable Vellanki, Rosa Referring Unavailable Asher, Mandy Primary Care Unavailable Vellanki, Rosa Attending Unavailable Vellanki, Rosa Referring Unavailable Asher, Mandy Primary Care Unavailable Asher, Mandy Primary Care Unavailable Asher, Mandy Referring Unavailable Asher, Mandy Attending Unavailable Vellanki, Rosa Attending Unavailable Vellanki, Rosa Referring Unavailable Asher, Mandy Primary Care Unavailable Asher, Mandy Referring Unavailable Asher, Mandy Attending Unavailable Asher, Mandy Primary Care Unavailable Vellanki, Rosa Attending Unavailable Vellanki, Rosa Referring Unavailable Asher, Mandy Primary Care Unavailable Asher, Mandy Primary Care Unavailable Asher, Mandy Referring Unavailable Asher, Mandy Attending Unavailable Asher, Mandy Primary Care Unavailable Asher, Mandy Referring Unavailable Vellanki, Rosa Attending Unavailable Asher, Mandy Consulting Unavailable Asher, Mandy Referring Unavailable Savanah Rene Attending Unavailable Asher, Mandy Primary Care Unavailable Vellanki, Rosa Attending Unavailable Asher, Mandy Primary Care Unavailable Lb LEES, Dr. Jordan Primary Care Physician Jolie LEES, Dr. Lee Attending Physician [phone] Lb LEES, Dr. Jordan Attending Physician Dr. Mandy Asher MD Referring Provider [phone] Lb LEES, Dr. Jordan Nurse Practitioner [phone] Allergies Allergy Classification Reported Allergen(s) Allergy Type Date of Onset Reaction(s) Facility (20 sources) bacitracin; Translations: [bacitracin] drug allergy 08-28-19 14 Itching [facility] Work Phone: (3 sources) dexlansoprazole drug allergy 07-14-19 15 swelling and itching [facility] Work Phone: (3 sources) lidocaine drug allergy 07-14-19 15 rapid pulse [facility] Work Phone: (3 sources) loratadine drug allergy 07-14-19 15 can't sleep [facility] Work Phone: (3 sources) morphine drug allergy 07-14-19 15 nausea, vomiting [facility] Work Phone: (3 sources) traMADol drug allergy 08-01-19 17 fatigue [facility] Work Phone: (1 source) Methadone; Translations: [methadone] [facility] Morphine; Translations: [morphine] Drug Allergy 02-06-20 16 Vomiting [facility] Repository (1 source) Sulfamethoxazole; Translations: [facility]amethoxazole] [facility] ([facility] sources) traMADol; Translations: [traMADol] Drug Allergy 02-06-20 16 Vomiting [facility] Repository (1 source) No Known Medication Allergies; Translations: [No Known Medication Allergies] Propensity to adverse reactions to drug (disorder) [facility] Repository (20 sources) Chlorpheniramine Drug Allergy 06-18-19 Other [facility] (20 sources) Loratadine; Translations: [LORATADINE] Drug Allergy 07-13-19 06 Other [facility] (20 sources) Phenylephrine Drug Allergy 06-18-19 Other [facility] (20 sources) Pseudoephedrine Drug Allergy 06-18-19 Other [facility] (6 sources) novacaine Propensity to adverse reactions 06-18-19 Unknown [facility] Work Phone: (20 sources) Procaine Drug Allergy 04-15-20 Other [facility] Comment on above: Novocain with epinep hrine causes increased heart rate. (13 sources) Procaine; Translations: [PROCAINE HCL] Drug Allergy 03-14-20 14 Other: See Comments [facility] (13 sources) Sulfamethoxazole / Trimethoprim; Translations: [SULFAMETHOXAZOLE-T RIMETHOPRIM] Drug Allergy 07-13-19 06 GI Upset [facility] (1 source) Chlorpheniramine Drug Allergy 07-23-19 [facility] Repository (1 source) Loratadine Drug Allergy 07-23-19 [facility] Repository (1 source) Phenylephrine Drug Allergy 07-23-19 [facility] Repository (1 source) Procaine Drug Allergy 07-23-19 [facility] Repository (1 source) Pseudoephedrine Drug Allergy 07-23-19 [facility] Repository Medications Current Medications Medication Drug Class(es) Dates Sig (Normalized) Sig (Original) [id number] 200 actuat albuterol 0.09 mg/actuat metered dose inhaler (20 sources) beta2-Adrenergic Agonist Start: 07-05-2024 albuterol HFA (PROVENTIL HFA, VENTOLIN HFA) 90 mcg/actuation inhaler USE 2 INHALATIONS ORALLY ASINSTRUCTED EVERY 4 HOURS, NEEDED 20.1 g 2 07/05/2024 Active Start: 02-17-2024 End: 07-05-2024 take 2 puff(s) by inhalation every four hours as needed albuterol HFA (PROVENTIL HFA, VENTOLIN HFA) 90 mcg/actuation inhaler Inhale 2 Puffs as instructed every 4 hours as needed. 3 Each 2 04/09/2024 07/05/2024 Discontinued Start: 06-27-2019 End: 03-21-2022 Albuterol Sulfate 90 mcg/act uation HFA aerosol inhaler Discontinued 2 NMA INHALATION EVERY 6 HOURS NEEDED as needed for Sob &/Or Wheezing 3 January 17, 2021 1:38pm March 21, 2022 3:59pm Start: 06-27-2019 End: 03-21-2022 take 1 puff(s) by inhalation every six hours as needed Albuterol Sulfate Discontinued 2 PUFF INHALATION EVERY 6 HOURS NEEDED 3 January 17, 2021 1:38pm March 21, 2022 3:59pm Start: 08-27-2013 End: 07-13-2014 VENTOLIN HFA 108 (90 Base) M CG/ACT AERS as directed ALBUTEROL SULFATE [id number] Gerardo Palomino Start: 08-27-2013 VENTOLIN HFA 1 08 (90 Base) MCG/ACT AERS as directed ALBUTEROL SULFATE [id number] Gerardo Palomino Start: 08-27-2013 End: 07-13-2014 VENTOLIN HFA 108 (90 Base) M CG/ACT AERS as directed ALBUTEROL SULFATE [id number] Bing Gorman End: 06-17-2024 albuterol HFA 90 mcg/actuati on HFA Inhale 2 Puffs as instructed as needed. 06/17/2024 Discontinued (Duplicate Entry) 120 actuat albuterol 0.1 mg/actuat / ipratropium bromide 0.02 mg/actuat inhalation spray (20 sources) Anticholinergic, beta2-Adrenergic Agonist Start: 05-01-2018 take 20-100 ug by inhalation every six hours as needed Start: 05-01-2018 take 20-100 ug by in halation every six hours Ipratropium-Albuterol (Combivent Respimat) 20-100 mcg/actuation mist Active 2 PUFF INHALATION EVERY 6 HOURS May 01, 2018 1:00am Start: 05-25-2017 End: 05-01-2018 Ipratropium-Albuterol 1 PUFF inhaler Discontinued 1 NMA INHALATION TWICE A DAY May 25, 2017 1:00am May 01, 2018 3:58pm Start: 05-25-2017 End: 05-01-2018 take 1 puff(s) by inhalation twice daily Ipratropium-Albuterol Discontinued 1 PUFF INHALATION TWICE A DAY May 25, 2017 1:00am May 01, 2018 3:58pm Start: 12-16-2015 End: 12-22-2015 Ipratropium-Albuterol (Combi vent Respimat Inhal [employer]) 1 PUFF inhaler Discontinued 1 NMA INHALATION 4 TIMES DAILY as needed for Wheezing December 16, 2015 12:00am December 22, 2015 3:02pm Start: 12-16-2015 End: 12-22-2015 take 1 puff(s) by inhalation four times daily Ipratropium-Albuterol (Combivent Respimat Inhal [employer]) 1 PUFF inhaler Discontinued 1 PUFF INHALATION 4 TIMES DAILY December 16, 2015 12:00am December 22, 2015 3:02pm Start: 10-26-2015 take 20-100 ug by in halation every six hours as needed COMBIVENT RESPIMAT 20-100 MCG/ACT AERS 2 puffs INH q6 hours PRN wheezing IPRATROPIUM-ALBUTEROL [id number] Rubens Terrazas Start: 10-26-2015 take 2 puff(s) by in halation every six hours as needed for wheezing COMBIVENT RESPIMAT 20-100 MCG/ACT AERS 2 puffs INH q6 hours PRN wheezing IPRATROPIUM-ALBUTEROL [id number] Rubens Terrazas Start: 08-27-2013 COMBIVENT RESP IMAT 20-100 MCG/ACT AERS as directed IPRATROPIUM-ALBUTEROL [id number] Gerardo Palomino Start: 08-27-2013 COMBIVENT RESP IMAT 20-100 MCG/ACT AERS as directed IPRATROPIUM-ALBUTEROL [id number] Gerardo Palomino End: 11-30-2024 ipratropium-albuterol (COMBI VENT RESPIMAT) 20-100 mcg/actuation mist Inhale as instructed as needed. 11/30/2024 Discontinued End: 02-14-2015 take 20-100 ug by inhalation every six hours COMBIVENT RESPIMAT 20-100 MCG/ACT AERS 1-2 aerosol solm inhalation every 6 hours for cough, wheezing, illness. IPRATROPIUM-ALBUTEROL [id number] Anna Xiao COMBIVENT RESPIM AT 20-100 MCG/ACT AERS 1-2 aerosol solm inhalation every 6 hours for cough, wheezing, illness. IPRATROPIUM-ALBUTEROL [id number] Bing Gorman End: 02-14-2015 COMBIVENT RESPIMAT 20-100 MC G/ACT AERS 1-2 aerosol solm inhalation every 6 hours for cough, wheezing, illness. IPRATROPIUM-ALBUTEROL [id number] Anna Xiao aspirin 650 mg delayed release oral tablet (20 sources) Nonsteroidal Anti-inflammatory Drug Start: 01-08-2022 take 1 tablet by mouth three times daily Start: 07-31-2016 take 1 tablet by sandra th once daily ASPIRIN 81 MG TBEC One tablet by mouth daily ASPIRIN [id number] Anna Padilla Start: 08-27-2013 End: 06-17-2024 take 1 tablet by mouth once daily ASPIRIN 81 MG TABS One tablet by mouth daily ASPIRIN [id number] Gerardo Palomino Start: 08-27-2013 take 1 tablet by sandra th once daily ASPIRIN 81 MG TABS One tablet by mouth daily ASPIRIN [id number] Gerardo Palomino take 2 tablets by mo [facility] once daily aspirin 325 mg cap Take 2 tablets by mouth once daily. Active azithromycin 250 mg oral tablet (20 sources) Macrolide Antimicrobial Start: 02-17-2024 End: 12-17-2024 azithromycin (ZITHROMAX) 250 mg tablet TAKE 1 TABLET FRIDAY, FRIDAY, FRIDAY 39 tablet 2 12/17/2024 Active Start: 09-14-2019 End: 08-23-2022 take 1 tablet by mouth once Azithromycin 250 mg tablet Discontinued 250 mg PO every Friday, Friday, and Friday 40 2 August 23, 2022 2:12pm August 23, 2022 2:42pm Bronchiectasis, uncomplicated Take one tablet Friday, Friday and Friday B-Complex With Vitamin C (Sandoval per B/C) capsule (10 sources) Start: 07-22-2024 Start: 07-22-2024 B-Complex With Vitamin C (Super B/C) capsule Active 1 NMA PO TWICE A DAY July 22, 2024 12:00am baclofen 20 mg oral tablet (20 sources) gamma-Aminobutyric Acid-ergic Agonist Start: 05-25-2017 take 10-20 mg by mouth at bedtime Start: 05-25-2017 take 10-20 mg by mouth at bedt vita Baclofen Active 10 - 20 MG PO AT BEDTIME May 25, 2017 1:00am take 1 tablet by [facility] once daily at bedtime baclofen (LIORESAL) 10 mg tablet Take 10 mg by mouth daily at bedtime. Active biotin 2.5 mg oral capsule (10 sources) Start: 07-22-2024 take 1 capsule by mouth once daily celecoxib 200 mg oral capsule (12 sources) Nonsteroidal Anti-inflammatory Drug Start: 04-18-2016 celecoxib (CELEBREX) 200 mg capsule 04/18/2016 Active chlorpheniramine maleate 4 mg oral tablet (10 sources) Histamine-1 Receptor Antagonist take 1 tablet by mouth every six hours as needed chlorpheniramine (ALLER-CHLOR) 4 mg tablet Take 4 mg by mouth every 6 hours as needed. Active cholecalciferol 0.05 mg oral capsule (20 sources) Vitamin D Start: 03-19-2021 take 1 capsule by mouth once daily Start: 07-31-2016 take 1 tablet by sandra once daily VITAMIN D3 1000 UNIT TABS One tablet by mouth daily CHOLECALCIFEROL [id number] Anna Padilla cholecalciferol 2500 unt / folic acid 1 mg oral tablet (10 sources) Vitamin D take 1 tablet by mouth once daily vitamin D3-folic acid 2,500 unit- 1 mg tab Take 1 tablet by mouth once daily. Active Cod Liver Oil (20 sources) Start: 12-26-2020 take 1 capsule by mouth once daily Cod Liver Oil Active 1 CAP PO DAILY December 26, 2020 10:06am Start: 12-26-2020 End: 04-15-2022 take 1 capsule by mouth once daily Cod Liver Oil Discontinued 1 CAP PO DAILY December 26, 2020 12:00am April 15, 2022 11:24am Start: 12-26-2020 End: 04-15-2022 take 1 capsule by mouth once daily Cod Liver Oil Discontinued 1 CAP PO DAILY December 25, 2020 11:00pm April 15, 2022 10:24am Start: 12-26-2020 take 1 capsule by mo [facility] once daily Cod Liver Oil Active 1 CAP PO DAILY December 26, 2020 12:00am Cyclosporine (20 sources) Calcineurin Inhibitor Immunosuppressant Start: 11-22-2021 Start: 11-22-2021 Cyclosporine A ctive 1 DRP EACH EYE TWICE A DAY November 22, 2021 8:12am Start: 11-22-2021 Cyclosporine A ctive 1 DRP EACH EYE TWICE A DAY November 22, 2021 9:12am Start: 04-06-2019 End: 11-22-2021 Cyclosporine 1 DROP droppere tte Discontinued 1 NMA EACH EYE TWICE A DAY April 06, 2019 1:00am November 22, 2021 9:16am dry eyes Start: 04-06-2019 End: 11-22-2021 Cyclosporine Discontinued 1 DRP EACH EYE TWICE A DAY April 06, 2019 1:00am November 22, 2021 9:16am take 0.05 drop(s) in to the eye(s) once daily cycloSPORINE (RESTASIS MULTIDOSE) 0.05 % drop Use 1 Drop in both eyes once daily. Active Cyclosporine 0.05 % droppere tte (9 sources) Start: 11-22-2021 Cyclosporine 0 .05 % dropperette Active 1 NMA EACH EYE TWICE A DAY November 22, 2021 9:12am dry eyes Start: 11-22-2021 Cyclosporine 0 .05 % dropperette Active 1 NMA EACH EYE TWICE A DAY November 22, 2021 9:12am DAILY MULTIVITAMIN ORAL (12 sources) DAILY MULTIVITAM IN ORAL Take by mouth once daily. Active DULoxetine 60 mg delayed release oral capsule (20 sources) Serotonin and Norepinephrine Reuptake Inhibitor Start: 04-07-20 take 1 capsule by mouth once daily esomeprazole 20 mg delayed release oral capsule (20 sources) Proton Pump Inhibitor Start: 04-06-20 take 1 capsule by mouth once daily Start: 05-25-2017 End: 05-01-2018 take 1 capsule by mouth once daily Esomeprazole Magnesium 20 MG capsule Discontinued 20 mg PO DAILY May 25, 2017 1:00am May 01, 2018 3:54pm Start: 03-03-2016 End: 02-17-2024 esomeprazole (NEXIUM) 40 mg capsule 03/03/2016 02/17/2024 Discontinued Start: 12-16-2015 End: 12-22-2015 take 1 capsule by mouth once daily Esomeprazole Magnesium (Nexium) 40 MG capsule Discontinued 40 mg PO DAILY December 16, 2015 12:00am December 22, 2015 3:01pm take 1 tablet by sandra th once daily NEXIUM 40 MG PACK One tablet by mouth daily ESOMEPRAZOLE MAGNESIUM [id number] Bing Gorman take 1 tablet by sandra th once daily NEXIUM 40 MG PACK One tablet by mouth daily ESOMEPRAZOLE MAGNESIUM [id number] Bing Gorman Fluad Quad (65yr up)(PF) 60 mcg (15 mcg x 4)/0.5mL IM syringe (flu vac (1 source) Start: 01-29-2021 Fluad Quad (65yr up)(PF) 60 mcg (15 mcg x 4)/0.5mL IM syringe (flu vac Active 60 MCG IM ONCE 0.5 January 29, 2021 11:12am fluticasone / salmeterol (4 sources) Corticosteroi d, beta2-Adrener gic Agonist Start: 08-10-2024 End: 08-05-2025 take 1 puff(s) by inhalation twice daily fluticasone-salmeter ol (WIXELA INHUB) 250-50 mcg/dose inhaler Inhale 1 puff as instructed two times a day. 180 each 3 08/10/2024 08/05/2025 Active 30 actuat fluticasone furoate 0.1 mg/actuat / vilanterol 0.025 mg/actuat dry powder inhaler (20 sources) Corticosteroi d, beta2-Adrener gic Agonist Start: 04-12-2022 End: 07-22-2024 Start: 04-12-2022 Fluticasone Fu roate-Vilanterol Active 1 INH INHALATION DAILY 3 April 12, 2022 1:00am Rinse mouth after each use Start: 12-12-2020 End: 04-12-2022 Fluticasone Furoate-Vilanter ol (Breo Ellipta) 100-25 mcg/dose blister with device Discontinued 1 NMA INHALATION Q24H 3 December 12, 2020 12:00am April 12, 2022 9:49am Shortness of breath after inhalation, rinse mouth with water and spit out; do not swallow Start: 12-12-2020 End: 04-12-2022 Fluticasone Furoate-Vilanter ol (Breo Ellipta) 100-25 mcg/dose blister with device Discontinued 1 INH INHALATION Q24H December 12, 2020 12:00am April 12, 2022 9:49am after inhalation, rinse mouth with water and spit out; do not swallow once-daily gabapentin 600 mg oral tablet (20 sources) Anti-epileptic Agent Start: 07-22-2024 take 1 tablet by mouth three times daily Gabapentin 600 mg tablet extended release 24 hr Active 600 mg PO THREE TIMES A DAY July 22, 2024 1:33pm back pain Start: 03-04-2018 End: 07-22-2024 take 1 tablet by mouth three times daily Start: 05-25-2017 End: 03-02-2018 take 2 capsules by mouth at bedtime Gabapentin 300 MG capsule Discontinued 600 mg PO AT BEDTIME May 25, 2017 1:00am March 02, 2018 2:18pm Start: 05-25-2017 End: 03-02-2018 take 600 mg by mouth at bedtime Gabapentin Discontinue d 600 MG PO AT BEDTIME May 25, 2017 1:00am March 02, 2018 2:18pm Start: 03-11-2016 End: 03-02-2018 take 1 capsule by mouth twice daily Gabapentin 300 MG capsule Discontinued 300 mg PO TWICE A DAY May 25, 2017 1:00am March 02, 2018 2:18pm Start: 03-11-2016 take 1 capsule by mo ut three times daily as needed, then take 2 capsules by mouth at bedtime as needed gabapentin (NEURONTIN) 300 mg capsule Take 300 mg by mouth three times a day. Will use 600mg at bedtime as needed 03/11/2016 Active Start: 10-10-2015 End: 12-22-2015 take 1 capsule by mouth twice daily at mealtime Gabapentin 300 MG capsule Discontinued 300 mg PO TWICE DAILY WITH MEALS October 10, 2015 12:00am December 22, 2015 3:02pm Start: 08-27-2013 End: 02-14-2015 GABAPENTIN 100 MG CAPS as di rected GABAPENTIN [id number] Gerardo Palomino GABAPENTIN CAPS GABAPENTIN CAPS [id number] Rubens Terrazas horse chestnut seed 300 mg oral capsule (20 sources) Start: 12-26-2020 take 1 capsule by mouth once daily hydroxychloroquine sulfate 200 mg oral tablet (20 sources) Antimalarial, Antirheumatic Agent Start: 07-22-2024 hydrOXYchloroQUI NE (PLAQUENIL) 200 mg tablet Take 200 mg by mouth once daily. using 200mg alternating with 400mg every other day Active ipratropium bromide 0.042 mg/actuat metered dose nasal spray (20 sources) Anticholinergic Start: 12-17-2024 take 1 spray(s) nasal route twice daily ipratropium bromide (ATROVENT) 42 mcg (0.06 %) nasal spray USE 1 SPRAY NASALLY TWICE DAILY 45 mL 2 12/17/2024 Active Start: 02-17-2024 End: 12-17-2024 ipratropium bromide (ATROVEN T) 42 mcg (0.06 %) nasal spray Use 1 [employer] in the nose two times a day. 45 mL 2 04/09/2024 12/17/2024 Discontinued Start: 07-15-2019 End: 03-07-2023 Ipratropium Weott 42 mcg ( 0.06 %) spray,non-aerosol Discontinued 2 NMA INTRANASAL DAILY 3 2 March 21, 2022 4:03pm March 07, 2023 2:40pm sob Start: 06-27-2019 End: 07-15-2019 Ipratropium Weott 15 ML sp ray,non-aerosol Discontinued 2 NMA NASAL DAILY June 27, 2019 1:00am July 15, 2019 2:25pm sob Start: 06-27-2019 End: 03-07-2023 Ipratropium Weott Disconti nued 2 SPRAY INTRANASAL DAILY March 21, 2022 4:03pm March 07, 2023 2:40pm Start: 12-16-2015 End: 12-22-2015 Ipratropium Weott 1 SPRAY Nasal.Sry Discontinued 2 NMA NASAL TWICE A DAY as needed for Allergies December 16, 2015 12:00am December 22, 2015 3:02pm Start: 12-16-2015 End: 12-22-2015 Ipratropium Weott Disconti nued 2 SPRAY NASAL TWICE A DAY December 16, 2015 12:00am December 22, 2015 3:02pm Start: 08-27-2013 IPRATROPIUM BR OMIDE 0.03 % SOLN as directed IPRATROPIUM BROMIDE [id number] Gerardo Palomino End: 02-17-2024 Ipratropium [place]ott 0.03 % n mame spray Use 2 Sprays in the nose every 12 hours. 02/17/2024 Discontinued IPRATROPIUM BROM GAGE 0.03 % SOLN 1-2 nasal every 6 hours as needed for congestion and prior to coming home from work. IPRATROPIUM BROMIDE [id number] Bing Gorman leucovorin 15 mg oral tablet (6 sources) Folate Analog take 1 tablet by mouth every week leucovorin (LEUCOVORIN) 15 mg tablet Take 15 mg by mouth one time a week. Active levocetirizine dihydrochloride 5 mg oral tablet (20 sources) Histamine-1 Receptor Antagonist Start: 07-23-19 take 1 tablet by mouth once daily lidocaine 0.05 mg/mg medicated patch (20 sources) Antiarrhythmic, Amide Local Anesthetic Start: 07-23-19 Start: 03-19-2021 End: 07-22-2024 Lidocaine 5 % adhesive patch ,medicated Discontinued 1 NMA TOPICAL DAILY March 19, 2021 1:00am July 22, 2024 1:40pm linseed oil 1000 mg oral capsule (20 sources) Start: 03-19-2021 take 1 capsule by mouth once daily magnesium (20 sources) Start: 05-01-2018 take 400 mg by mouth once daily Magnesium Active 400 MG PO DAILY May 01, 2018 3:53pm Start: 05-01-2018 take 2 tablets by mo ut once daily Start: 05-01-2018 take 2 tablets by mo uth once daily Magnesium 200 mg tablet Active 400 mg PO DAILY May 01, 2018 1:00am supplement Start: 05-01-2018 take 2 tablets by mo uth once daily Magnesium 200 mg tablet Active 400 mg PO DAILY May 01, 2018 1:00am Start: 05-01-2018 take 400 mg by mouth once yvon y Magnesium Active 400 MG PO DAILY May 01, 2018 12:00am Start: 05-01-2018 take 400 mg by mouth once yvon y Magnesium Active 400 MG PO DAILY May 01, 2018 1:00am MAGNESIUM CAPS M AGNESIUM CAPS [id number] Rubens Terrazas End: 01-30-2016 MAGNESIUM CAPS MA GNESIUM CAPS [id number] Anna Chi CHANCERY CLERK magnesium oxide 400 mg oral tablet (10 sources) take 1 tablet by mouth once daily magnesium oxide 400 mg magnesium tab Take 1 tablet by mouth once daily. Active methotrexate 25 mg/ml injectable solution (20 sources) Folate Analog Metabolic Inhibitor Start: 06-08-2024 Start: 04-15-2022 End: 07-22-2024 take 1 tablet by mouth every week Methotrexate Sodium 2.5 mg tablet Discontinued 2.5 mg PO EVERY WEEK April 15, 2022 1:00am July 22, 2024 1:35pm miSOPROStol 0.1 mg oral tablet (20 sources) Prostaglandin E1 Analog Start: 07-22-2024 take 1 tablet by mouth three times daily take 1 tablet by mouth four time s daily miSOPROStol (CYTOTEC) 100 mcg tablet Take 100 mcg by mouth four times daily. with ASA Active Multivitamin tablet (10 sources) Start: 07-22-2024 Start: 07-22-2024 Multivitamin t ablet Active 1 {tbl} PO daily July 22, 2024 12:00am OTC NUTRITIONAL SUPPLEMENT (20 sources) [facility] daily OTC NUTRITIONAL SUPPLEMENT Take 1 tablet by mouth once daily. Biotin Active take 1 tablet by mouth once yvon y OTC NUTRITIONAL SUPPLEMENT Take 1 tablet by mouth once daily. Ariana Moranut Active oxyCODONE hydrochloride 5 mg oral tablet (20 sources) Opioid Agonist Start: 02-29-2016 take 1 tablet by mouth every eight hours as needed for pain Start: 12-16-2015 End: 08-21-2016 take 5-10 mg by mouth every six hours as needed for pain Oxycodone 5 MG tablet Discontinued 5 - 10 mg PO EVERY 6 HOURS NEEDED as needed for Pain 60 0 December 22, 2015 3:02pm August 21, 2016 8:49am OXYGEN, HOME THERAPY, (10 sources) OXYGEN, HOME THE RAPY, Inhale 3 L/min as instructed as directed. Active PHENYLEPHRINE/HYDR OCODONE/CP (HYDROCODONE CP ORAL) (12 sources) PHENYLEPHRINE/HY DROCOD ONE/CP (HYDROCODONE CP ORAL) Take by mouth. 5mg-no acetaminophen every 3-6 hours prn pain Active potassium citrate 5 meq extended release oral tablet (20 sources) Metabolic Alkalinizer Start: take 2 tablets by mouth twice daily Start: 05-25-2017 take 10 mEq by mouth twice daily Potassium Citrate Active 10 MEQ PO TWICE A DAY May 25, 2017 1:00am Start: 03-04-2016 End: 06-17-2024 potassium citrate ER (UROCIT -K) 5 mEq (540 mg) TbER 03/04/2016 06/17/2024 Discontinued Start: 12-16-2015 End: 12-22-2015 Potassium Citrate (Urocit-K) 10 MEQ Tablet.Er Discontinued 5 meq PO DAILY December 16, 2015 12:00am December 22, 2015 3:02pm Start: 08-27-2013 End: 02-14-2015 take 1 tablet by mouth once daily POTASSIUM CITRATE ER 5 MEQ (540 MG) CR-TABS One tablet by mouth daily POTASSIUM CITRATE [id number] Anna Xiao End: 06-17-2024 take 10 mEq by mouth once daily potassium citrate ER ( UROCIT-K) 10 mEq (1,080 mg) Take 2,160 mg by mouth once daily. 06/17/2024 Discontinued predniSONE 10 mg oral tablet (20 sources) Corticosteroid Start: 07-22-2024 take 1 tablet by sandra once daily as needed Start: 12-26-2020 End: 01-29-2021 take 4 tablets by mouth once daily, then take 3 tablets by mouth once daily, then take 2 tablets by mouth once daily, then take 1 tablet by mouth once daily at mealtime Prednisone 10 mg tablet Discontinued 10 mg PO daily 30 0 December 26, 2020 12:00am January 29, 2021 11:15am Take 4 tablets PO daily for 3 days, then 3 tablets PO daily for 3 days then 2 tablets PO daily for 3 days then 1 tablet PO daily for 3 days or until finished. Administer with food or milk. Start: 04-10-2019 End: 04-26-2019 take 3 tablets by mouth once daily Prednisone 10 MG tablet Discontinued 10 mg PO DAILY 30 April 10, 2019 1:00am April 26, 2019 11:35am 40 mg aily for 3 days 30 mg daily for 3 days 20 mg daily for 3 days 10 mg daily 3 days Start: 04-10-2019 End: 04-26-2019 take 30 mg by mouth once daily Prednisone Discontinued 10 MG PO DAILY April 10, 2019 1:00am April 26, 2019 11:35am 40 mg aily for 3 days 30 mg daily for 3 days 20 mg daily for 3 days 10 mg daily 3 days Start: 05-08-2018 End: 03-09-2019 Prednisone 10 mg tablet Discontinued 10 mg PO daily 30 0 February 10, 2019 12:00am March 09, 2019 10:41am take 4 tabs for three days, then 3 tabs for three days, then 2 tabs for three days, then 1 tab for 3 days Start: 10-26-2015 End: 01-30-2016 DELTASONE 20 MG TABS take as directed - Dr. Muhammad PREDNISONE [id number] Rubens Terrazas Start: 02-14-2015 End: 07-26-2015 PREDNISONE 20 MG TABS Take a pill for 1 day, then 0.5 pill for 4 days PREDNISONE [id number] Codie Centeno LPN 12 hr pseudoephedrine hydrochloride 120 mg extended release oral tablet (20 sources) alpha-Adrenergic Agonist Start: 07-22-2024 take 1 tablet by mouth every twelve hours Start: 10-10-2015 End: 12-22-2015 take 1 tablet by mouth once daily Pseudoephedrine Hcl (Sudafed 12 Hour) 120 MG Tablet.Er Discontinued 120 mg PO DAILY October 10, 2015 12:00am December 22, 2015 3:02pm PSEUDOEPHEDRINE HCL (SUDAFED 12 HOUR ORAL) Take by mouth. Active SUDAFED 12 HOUR [id number] PSEUDOEPHEDRINE HCL [id number] Rubens Terrazas Semaglutide (10 sources) Start: 07-22-2024 Start: 07-22-2024 Semaglutide 0. 25 mg or 0.5 mg (2 mg/3 mL) pen injector Active 0.5 mg SC EVERY WEEK July 22, 2024 12:00am semaglutide 0.5 mg/0.5 mL (1 mg/mL) subcutaneous compounded injection (6 sources) inject 0.5 mg by subcutaneous injection every week semaglutide 0.5 mg/0.5 mL (1 mg/mL) subcutaneous compounded injection Inject 0.5 mg subcutaneously one time a week. Active sulfaSALAzine 500 mg delayed release oral tablet (20 sources) Aminosalicylate Start: 07-23-19 take 2 tablets by mouth twice daily take 2 tablets by mouth twice da eddie sulfaSALAzine (AZULFIDINE) 500 mg tablet Take 500 mg by mouth two times a day. Two tablets (1,000mg) twice daily Active take 1 tablet by sandra th three times daily sulfaSALAzine (AZULFIDINE) 500 mg tablet Take 500 mg by mouth three times a day. Active valACYclovir 500 mg oral tablet (20 sources) Herpesvirus Nucleoside Analog DNA Polymerase Inhibitor, Herpes Simplex Virus Nucleoside Analog DNA Polymerase Inhibitor, Herpes Zoster Virus Nucleoside Analog DNA Polymerase Inhibitor Start: 08-21-2016 take 1 tablet by mouth once daily VALACYCLOVIR HCL 500 MG TABS one tablet daily for suppression; 2 tablets every 8 H x 5 days for outbreak VALACYCLOVIR HCL [id number] Bing Gorman vitamin B complex vit C no.3 (VITAMIN B COMP AND C NO.3 ORAL) (10 sources) take 1 tablet by sandra th twice daily vitamin B complex vit C no.3 (VITAMIN B COMP AND C NO.3 ORAL) Take 1 tablet by mouth two times a day. Active take 1 tablet by mouth once yvon y vitamin B complex vit C no.3 (VITAMIN B COMP AND C NO.3 ORAL) Take 1 tablet by mouth once daily. Active Completed/Discontinued Medications Medication Drug Class(es) Dates Sig (Normalized) Sig (Original) acetaminophen 325 mg oral tablet (20 sources) Start: 06-30-2019 End: 07-22-2024 Acetaminophen 325 MG tablet Discontinued 650 mg PO EVERY 6 HOURS NEEDED as needed for Pain Score 1-10/Temp > 100.7 F 0 June 30, 2019 1:00am July 22, 2024 1:30pm Start: 06-30-2019 take 650 mg by mouth every six hours as needed Acetaminophen Active 650 MG PO EVERY 6 HOURS NEEDED June 30, 2019 1:00am Start: 01-30-2016 take 2 tablets by mo uth every six hours for pain TYLENOL EXTRA STRENGTH 500 MG TABS 2 tabs po q6h for root canal pain ACETAMINOPHEN [id number] Anna Chi LPN acetaminophen 325 mg / HYDROcodone bitartrate 5 mg oral tablet (6 sources) Opioid Agonist Start: 08-27-2013 End: 07-13-2014 HYDROCODONE-ACETAMINOPHEN 5-325 MG TABS 1-2 at bedtime HYDROCODONE-ACETAMINOPHEN [id number] Bing Gorman acetaminophen 325 mg / oxyCODONE hydrochloride 5 mg oral tablet (10 sources) Opioid Agonist Start: 07-31-2016 take 1 tablet by mouth twice daily OXYCODONE-ACETAMINOPHEN 5-325 MG TABS One tablet by mouth twice daily OXYCODONE-ACETAMINOPHEN [id number] Anna Padilla Start: 04-10-2016 End: 06-17-2024 take 1 tablet by mouth every four hours as needed oxyCODONE-acetaminophen (PERCOCET) 5-325 mg tablet Take 1 tablet by mouth every 4 hours as needed. 10 tablet 0 04/10/2016 06/17/2024 Discontinued acetaZOLAMIDE 250 mg oral tablet (20 sources) Carbonic Anhydrase Inhibitor Start: 12-26-2020 End: 07-22-2024 take 1 tablet by mouth once daily Acetazolamide 250 mg tablet Discontinued 250 mg PO DAILY December 26, 2020 12:00am July 22, 2024 1:31pm acyclovir 200 mg oral capsule (20 sources) Herpesvirus Nucleoside Analog DNA Polymerase Inhibitor, Herpes Simplex Virus Nucleoside Analog DNA Polymerase Inhibitor, Herpes Zoster Virus Nucleoside Analog DNA Polymerase Inhibitor Start: 12-16-2015 End: 12-22-2015 take 1 capsule by mouth once daily Acyclovir 200 MG capsule Discontinued 400 mg PO DAILY December 16, 2015 12:00am December 22, 2015 3:02pm Start: 12-16-2015 End: 12-22-2015 take 400 mg by mouth once daily Acyclovir Discontinued 400 MG PO DAILY December 16, 2015 12:00am December 22, 2015 3:02pm Start: 08-27-2013 take 1 tablet by sandra th once daily ACYCLOVIR 400 MG TABS One tablet by mouth daily ACYCLOVIR [id number] Gerardo Palomino alendronic acid 70 mg oral tablet (10 sources) Bisphosphonate Start: 07-31-2016 End: 06-17-2024 take 1 tablet by mouth every week FOSAMAX 70 MG TABS 1 TAB ORAL, ONCE PER WEEK ALENDRONATE SODIUM [id number] Anna Padilla apixaban 5 mg oral tablet (20 sources) Factor Xa Inhibitor Start: 06-18-2021 End: 01-08-2022 take 1 tablet by mouth twice daily Apixaban (Eliquis) 5 mg tablet Discontinued 5 mg PO TWICE A DAY 14 0 November 01, 2021 12:00am November 22, 2021 9:12am Start: 10-13-2020 End: 01-17-2021 take 1 tablet by mouth twice daily Apixaban 5 mg tablet Discontinued 5 mg PO TWICE A DAY 180 0 October 13, 2020 3:42pm January 17, 2021 1:38pm Start: 01-17-2020 End: 10-13-2020 take 2 tablets by mouth twice daily Apixaban 5 mg tablet Discontinued 10 mg PO TWICE A DAY 180 0 September 22, 2020 3:11pm October 13, 2020 3:38pm Start: 01-17-2020 End: 10-13-2020 take 10 mg by mouth twice daily Apixaban Discontinued 10 MG PO TWICE A DAY 180 September 22, 2020 3:11pm October 13, 2020 3:38pm Start: 07-15-2019 End: 01-17-2020 take 1 tablet by mouth twice daily Apixaban (Eliquis) 5 mg tablet Discontinued 5 mg PO TWICE A DAY 180 3 July 15, 2019 12:00am January 17, 2020 5:27pm Start: 06-30-2019 End: 07-15-2019 take 2 tablets by mouth twice daily, then take 1 tablet by mouth twice daily Apixaban 5 MG tablet Discontinued 10 mg PO TWICE A DAY 62 0 June 30, 2019 1:00am July 15, 2019 2:18pm 10 mg BID x 10 doses, then 5 mg BID after that Start: 06-30-2019 End: 07-15-2019 take 10 mg by mouth twice daily, then take 5 mg by mouth twice daily Apixaban Discontinued 10 MG PO TWICE A DAY 62 June 30, 2019 1:00am July 15, 2019 2:18pm 10 mg BID x 10 doses, then 5 mg BID after that ascorbic acid 500 mg oral tablet (6 sources) Start: 08-27-2013 End: 07-26-2015 take 1 tablet by mouth twice daily ASCORBIC ACID 500 MG TABS One tablet by mouth twice daily ASCORBIC ACID [id number] Codie Centeno CHANCERY CLERK B COMPLEX VITAMINS (4 sources) B COMPLEX-B12 TA BS B COMPLEX VITAMINS [id number] Rubens Terrazas End: 01-30-2016 B COMPLEX-B12 TABS 7 B COMPLEX VITAMINS [id number] Anna Chi LPN B COMPLEX VITAMINS (2 sources) B COMPLEX-B12 TA BS B COMPLEX VITAMINS [id number] Rubens Terrazas End: 01-30-2016 B COMPLEX-B12 TABS 7 B COMPLEX VITAMINS [id number] Anna Chi LPN budesonide / formoterol (20 sources) Corticosteroid, beta2-Adrenergic Agonist Start: 02-17-2024 End: 08-10-2024 take 2 puff(s) by inhalation twice daily budesonide-formoterol (SYMBICORT) 160-4.5 mcg/actuation inhaler Inhale 2 Puffs as instructed two times a day. 3 Each 2 02/17/2024 08/10/2024 Discontinued Start: 02-17-2024 take 2 puff(s) by in halation twice daily budesonide-formoterol (SYMBICORT) 160-4.5 mcg/actuation inhaler Inhale 2 Puffs as instructed two times a day. 3 Each 2 02/17/2024 Active Start: 09-15-2020 End: 12-12-2020 Budesonide-Formoterol 160-4. 5 mcg/actuation HFA aerosol inhaler Discontinued 2 NMA INHALATION TWICE A DAY 3 3 September 15, 2020 10:06am December 12, 2020 6:04am Unspecified asthma, uncomplicated sob/wheezing Start: 09-15-2020 End: 12-12-2020 Budesonide-Formoterol 160-4. 5 mcg/actuation HFA aerosol inhaler Discontinued 2 NMA INHALATION TWICE A DAY 3 September 15, 2020 10:06am December 12, 2020 6:04am Start: 09-15-2020 End: 12-12-2020 take 1 puff(s) by inhalation twice daily Budesonide-Formoterol Discontinued 2 PUFF INHALATION TWICE A DAY 3 September 15, 2020 9:06am December 12, 2020 5:04am Start: 09-15-2020 End: 12-12-2020 take 1 puff(s) by inhalation twice daily Budesonide-Formoterol Discontinued 2 PUFF INHALATION TWICE A DAY 3 September 15, 2020 10:06am December 12, 2020 6:04am Start: 03-06-2020 End: 09-15-2020 Budesonide-Formoterol 160-4. 5 mcg/actuation HFA aerosol inhaler Discontinued 2 NMA INHALATION TWICE A DAY 3 3 March 06, 2020 12:29pm September 15, 2020 10:07am Unspecified asthma, uncomplicated sob/wheezing Start: 03-06-2020 End: 09-15-2020 Budesonide-Formoterol 160-4. 5 mcg/actuation HFA aerosol inhaler Discontinued 2 NMA INHALATION TWICE A DAY 3 March 06, 2020 12:29pm September 15, 2020 10:07am Start: 03-06-2020 End: 09-15-2020 take 1 puff(s) by inhalation twice daily Budesonide-Formoterol Discontinued 2 PUFF INHALATION TWICE A DAY 3 March 06, 2020 11:29am September 15, 2020 9:07am Start: 03-06-2020 End: 09-15-2020 take 1 puff(s) by inhalation twice daily Budesonide-Formoterol Discontinued 2 PUFF INHALATION TWICE A DAY 3 March 06, 2020 12:29pm September 15, 2020 10:07am Start: 07-07-2017 End: 03-06-2020 Budesonide-Formoterol 160-4. 5 mcg/actuation HFA aerosol inhaler Discontinued 2 NMA INHALATION TWICE A DAY 3 3 March 02, 2019 10:08am April 06, 2019 10:36am Start: 05-25-2017 End: 07-07-2017 Budesonide-Formoterol 160-4. 5 inhaler Discontinued 2 NMA IN TWICE A DAY May 25, 2017 1:00am July 07, 2017 1:47pm Start: 05-25-2017 End: 03-06-2020 take 1 puff(s) by inhalation twice daily Budesonide-Formoterol Discontinued 2 PUFF INHALATION TWICE A DAY 3 March 02, 2019 10:08am April 06, 2019 10:36am Start: 10-10-2015 End: 12-22-2015 Budesonide-Formoterol (Symbi rema 160/4.5 Mcg Inhaler (Sp)) 1 INHALER inhaler Discontinued 2 NMA INHALATION TWICE A DAY October 10, 2015 12:00am December 22, 2015 3:02pm Start: 10-10-2015 End: 12-22-2015 Budesonide-Formoterol (Symbi rema 160/4.5 Mcg Inhaler (Sp)) 1 INHALER inhaler Discontinued 2 PUFF INHALATION TWICE A DAY October 10, 2015 12:00am December 22, 2015 3:02pm Start: 02-14-2015 take 2 puff(s) by in halation twice daily SYMBICORT 160-4.5 MCG/ACT AERO 2 puffs INH Twice daily BUDESONIDE-FORMOTEROL FUMARATE [id number] Rubens Terrazas Start: 02-14-2015 take 2 puff(s) by in halation twice daily SYMBICORT 160-4.5 MCG/ACT AERO 2 puffs INH Twice daily BUDESONIDE-FORMOTEROL FUMARATE [id number] Rubens Terrazas BUDESONIDE/FORMOTEROL FUMARATE (SYMBICORT INHALATION) (3 sources) End: 02-17-2024 BUDESONIDE/FORMOTEROL FUMARATE (SYMBICORT INHALATION) Inhale as instructed. 02/17/2024 Discontinued ciprofloxacin 250 mg oral tablet (6 sources) Quinolone Antimicrobial End: 01-30-2016 CIPRO TABS CIPROFLOXACIN HCL TABS [id number] Rubens Terrazas CIPRO TABS CIPRO FLOXACIN HCL TABS [id number] Rubens Terrazas End: 01-30-2016 CIPRO TABS CIPROF LOXACIN HCL TABS [id number] Anna Amita Chi CHANCERY CLERK clotrimazole 10 mg/ml topical cream (6 sources) Azole Antifungal End: 07-26-2015 CLOTRIMAZOLE 1 % CREA external around lips at bedtime and in morning CLOTRIMAZOLE [id number] Bing Gorman COD LIVER OIL CAPS (6 sources) COD LIVER OIL CA PS COD LIVER OIL CAPS [id number] Rubens Terrazas End: 01-30-2016 COD LIVER OIL CAPS 7 COD LIVER OIL CAPS [id number] Anna Amita Chi CHANCERY CLERK Cod Liver Oil capsule (11 sources) Start: 12-26-2020 End: 04-15-2022 Cod Liver Oil capsule Discontinued 1 NMA PO DAILY December 26, 2020 12:00am April 15, 2022 11:24am CYCLOBENZAPRINE HCL TABS (12 sources) Muscle Relaxant End: 02-14-2015 take 1 tablet by mouth three times daily CYCLOBENZAPRINE HCL 10 MG TABS One tablet by mouth three times daily CYCLOBENZAPRINE HCL [id number] Anna Xiao CYCLOBENZAPRINE HCL TABS CYCLOBENZAPRINE HCL TABS [id number] Rubens Terrazas End: 01-30-2016 CYCLOBENZAPRINE HCL TABS 201 10/11/26 CYCLOBENZAPRINE HCL TABS [id number] Anna Amita Chi CHANCERY CLERK 1 ml denosumab 60 mg/ml prefilled syringe (20 sources) RANK Ligand Inhibitor Start: 06-27-2019 End: 11-22-2021 Denosumab Active 60 MG SC .COMPLEX November 22, 2021 9:13am 60 mg subcutaneously q6 months; Start: 08-21-2016 End: 05-01-2018 inject 60 mg by subcutaneous injection once Denosumab 60 MG/ML syringe Discontinued 60 mg SQ ONE TIME August 21, 2016 12:00am May 01, 2018 3:54pm Start: 08-21-2016 End: 05-01-2018 inject 60 mg by subcutaneous injection once Denosumab Discontinued 60 MG SQ ONE TIME August 21, 2016 12:00am May 01, 2018 3:54pm Start: 07-31-2016 End: 11-22-2021 Denosumab 60 MG/ML syringe Discontinued 60 mg SQ .COMPLEX June 27, 2019 1:00am November 22, 2021 9:16am osteoporosis q6 months Start: 07-31-2016 PROLIA 60 MG/M L SOLN in ofc twice yrly DENOSUMAB [id number] Anna Padilla dexamethasone 1 mg/ml / tobramycin 3 mg/ml ophthalmic suspension (20 sources) Aminoglycoside Antibacterial, Corticosteroid Start: 12-16-2015 End: 12-22-2015 Tobramycin-Dexamethasone 1 DROP Opth.Btl Discontinued 1 NMA Each Eye TWICE A DAY as needed for Dry Eyes December 16, 2015 12:00am December 22, 2015 3:02pm diclofenac sodium 75 mg delayed release oral tablet (20 sources) Nonsteroidal Anti-inflammatory Drug Start: 05-01-2018 End: 06-30-2019 Diclofenac Sodium 75 mg tablet,delayed release (DR/EC) Discontinued 75 mg PO 0800,1500 May 01, 2018 1:00am June 30, 2019 12:04pm anti-inflammatory Start: 07-31-2016 take 1 tablet by sandra th twice daily DICLOFENAC SODIUM 75 MG TBEC One tablet by mouth twice daily DICLOFENAC SODIUM [id number] Anna Padilla docusate sodium 100 mg oral capsule (20 sources) Start: 10-16-2015 End: 12-22-2015 take 1 capsule by mouth twice daily as needed for constipation Docusate Sodium (Colace) 100 MG capsule Discontinued 100 mg PO TWICE DAILY NEEDED as needed for Constipation 60 0 October 16, 2015 12:00am December 22, 2015 3:02pm doxycycline monohydrate 100 mg oral capsule (20 sources) Tetracycline-class Drug Start: 06-30-2019 End: 07-15-2019 Doxycycline Monohydrate 100 MG capsule Discontinued 100 mg PO TWICE A DAY 9 0 June 30, 2019 1:00am July 15, 2019 2:19pm total 9 doses, start tonight 2.26 2 ml dupilumab 150 mg/ml prefilled syringe (20 sources) Interleukin-4 Receptor alpha Antagonist Start: 03-23-2019 End: 09-14-2019 Dupilumab 300 mg/2 mL syringe Discontinued 300 mg SC every 2 weeks 2 0 May 12, 2019 3:10pm September 14, 2019 8:25am astma estradiol 0.1 mg/ml vaginal cream (7 sources) Estrogen Start: 03-20-2015 End: 06-17-2024 estradiol (ESTRACE) 0.01 % (0.1 mg/gram) vaginal cream Use small amount in vaginal opening twice a week 1 Tube 2 03/20/2015 06/17/2024 Discontinued fluticasone propionate 0.05 mg/actuat metered dose nasal spray (12 sources) Corticosteroid Start: 07-19-2016 take 2 spray(s) nasal route once daily FLUTICASONE PROPIONATE 50 MCG/ACT SUSP 2 sprays each nostril daily FLUTICASONE PROPIONATE [id number] Rubens Terrazas End: 11-30-2024 fluticasone propionate (FLON ASE NASAL) Use 2 Sprays in the nose once daily. 11/30/2024 Discontinued fluticasone prop ionate (FLONASE NASAL) Use 2 Sprays in the nose once daily. Active furosemide 20 mg oral tablet (20 sources) Loop Diuretic Start: 03-19-2021 End: 11-30-2024 take 1 tablet by mouth once daily Furosemide 20 mg tablet Discontinued 20 mg PO DAILY March 19, 2021 1:00am July 22, 2024 1:33pm 12 hr guaiFENesin 1200 mg extended release oral tablet (20 sources) Start: 04-10-2019 End: 03-19-2021 take 1 tablet by mouth twice daily Guaifenesin 1,200 MG tablet Discontinued 1200 mg PO TWICE A DAY 14 0 April 10, 2019 1:00am March 19, 2021 3:31pm hydrocortisone butyrate 1 mg/ml topical cream (9 sources) Corticosteroid Start: 07-31-2016 HYDROCORTISONE BUTYRATE 0.1 % CREA apply external to lips in AM HYDROCORTISONE BUTYRATE [id number] Anna Padilla End: 07-26-2015 LOCOID 0.1 % CREA external t o lips in morning HYDROCORTISONE BUTYRATE [id number] Codie Acevedo Jacobo CHANCERY CLERK End: 07-26-2015 LOCOID 0.1 % CREA external t o lips in morning HYDROCORTISONE BUTYRATE [id number] Codie Acevedo Jacobo CHANCERY CLERK hydrOXYzine hydrochloride 25 mg oral tablet (20 sources) Antihistamine Start: 08-21-2016 End: 07-22-2024 take 1 tablet by mouth every eight hours as needed for anxiety Hydroxyzine Hcl 25 MG tablet Discontinued 25 mg PO EVERY 8 HOURS as needed for Anxiety August 21, 2016 12:00am July 22, 2024 1:34pm take 0.5-1 tablets b y mouth every eight hours as needed for anxiety HYDROXYZINE HCL 25 MG/ML SOLN 1/2 to 1 tablet by mouth every 8 hours as needed for anxiety or allergies HYDROXYZINE HCL [id number] Bing Gorman ibuprofen 200 mg oral tablet (3 sources) Nonsteroidal Anti-inflammatory Drug Start: 01-30-2016 take 3 tablets by mouth every six hours for pain MOTRIN IB 200 MG TABS 3 tabs po q6h for root canal pain IBUPROFEN [id number] Anna Chi CHANCERY CLERK isosorbide dinitrate 40 mg oral tablet (9 sources) Nitrate Vasodilator Start: 07-31-2016 take 1 tablet by mouth four times daily as needed ISORDIL TITRADOSE 40 MG TABS One tablet by mouth four times daily as needed ISOSORBIDE DINITRATE [id number] Anna Padilla End: 02-14-2015 take 1 tablet by mouth every six hours as needed ISORDIL TITRADOSE 40 MG TABS One tablet by mouth every 6 hours as needed ISOSORBIDE DINITRATE [id number] Anna Xiao K+Hfwa-Iflguqdp-Xrjb-ManPoly (ORAMAGICRX) mwsh (11 sources) End: 11-30-2024 K+Fbnx-Nizupdpb-Qebr-ManPoly (ORAMAGICRX) mwsh Use as instructed three times daily. 11/30/2024 Discontinued K+Sorb-Maltodex- Aloe-ManPoly (ORAMAGICRX) mwsh Use as instructed three times daily. Active levoFLOXacin 750 mg oral tablet (20 sources) Quinolone Antimicrobial Start: 10-21-2022 End: 07-22-2024 take 1 tablet by mouth once daily Levofloxacin 750 mg tablet Discontinued 750 mg PO DAILY 7 0 October 21, 2022 12:00am July 22, 2024 1:35pm Start: 12-26-2020 End: 03-19-2021 take 1 tablet by mouth once daily Levofloxacin 750 mg tablet Discontinued 750 mg PO DAILY 7 0 December 26, 2020 12:00am March 19, 2021 3:30pm Start: 07-15-2019 End: 09-14-2019 take 1 tablet by mouth every twenty-four hours Levofloxacin (Levaquin) 750 mg tablet Discontinued 750 mg PO Q24H 14 1 July 15, 2019 12:00am September 14, 2019 8:24am Start: 06-27-2019 End: 06-30-2019 take 1 tablet by mouth once daily Levofloxacin 750 MG tablet Discontinued 750 mg PO DAILY 9 0 June 27, 2019 1:00am June 30, 2019 12:07pm Start: 05-04-2019 End: 06-02-2019 take 1 tablet by mouth once daily Levofloxacin 750 mg tablet Discontinued 750 mg PO DAILY 5 0 May 04, 2019 2:24pm June 02, 2019 11:13am Start: 04-10-2019 End: 04-26-2019 take 1 tablet by mouth once daily Levofloxacin 750 MG tablet Discontinued 750 mg PO DAILY@0600 2 0 April 10, 2019 1:00am April 26, 2019 11:34am Start: 02-10-2019 End: 02-17-2019 take 1 tablet by mouth every twenty-four hours Levofloxacin (Levaquin) 750 mg tablet Discontinued 750 mg PO Q24H 7 7 0 February 10, 2019 12:00am February 16, 2019 12:00am February 17, 2019 12:08am Start: 02-01-2019 End: 02-06-2019 take 1 tablet by mouth every twenty-four hours Levofloxacin (Levaquin) 500 mg tablet Discontinued 500 mg PO Q24H 5 5 0 February 01, 2019 12:00am February 05, 2019 12:00am February 06, 2019 12:08am Start: 09-23-2018 End: 09-28-2018 take 1 tablet by mouth every twenty-four hours Levofloxacin (Levaquin) 500 mg tablet Discontinued 500 mg PO Q24H 5 5 0 September 23, 2018 12:00am September 27, 2018 12:00am September 28, 2018 12:07am Start: 08-14-2018 End: 08-17-2018 take 1 tablet by mouth every twenty-four hours Levofloxacin (Levaquin) 750 mg tablet Discontinued 750 mg PO Q24H 3 3 0 August 14, 2018 12:00am August 16, 2018 12:00am August 17, 2018 12:08am Start: 08-10-2018 End: 08-15-2018 take 1 tablet by mouth every twenty-four hours Levofloxacin (Levaquin) 500 mg tablet Discontinued 500 mg PO Q24H 5 5 0 August 10, 2018 12:00am August 14, 2018 12:00am August 15, 2018 12:08am Start: 05-08-2018 End: 05-13-2018 take 1 tablet by mouth every twenty-four hours Levofloxacin (Levaquin) 500 mg tablet Discontinued 500 mg PO Q24H 5 5 0 May 08, 2018 1:00am May 12, 2018 1:00am May 13, 2018 1:09am Start: 04-09-2017 End: 04-14-2017 take 1 tablet by mouth every twenty-four hours Levofloxacin (Levaquin) 500 mg tablet Discontinued 500 mg PO Q24H 5 5 0 April 09, 2017 1:00am April 13, 2017 1:00am April 14, 2017 1:04am Start: 02-11-2015 End: 02-18-2015 take 1 tablet by mouth once daily LEVAQUIN 500 MG TABS One tablet by mouth daily LEVOFLOXACIN [id number] Anna Xiao LORazepam 1 mg oral tablet (20 sources) Benzodiazepine Start: 05-03-2019 End: 05-08-2019 take 1 tablet by mouth three times daily as needed for pain Lorazepam 1 MG tablet Discontinued 1 mg PO 3 TIMES DAILY NEEDED as needed for Pain Score May 03, 2019 1:00am May 07, 2019 1:00am May 08, 2019 1:09am Start: 02-15-2019 End: 02-20-2019 take 1 tablet by mouth three times daily as needed Lorazepam 0.5 MG tablet Discontinued 0.5 mg PO 3 TIMES DAILY NEEDED as needed for Anxiousness 10 3 February 15, 2019 12:00am February 17, 2019 12:00am February 20, 2019 12:09am Anxiety disorder Anxiety disorder, unspecified Start: 08-27-2013 LORAZEPAM TABS as needed LORAZEPAM TABS [id number] Gerardo Palomino take 1 tablet by sandra th every eight hours as needed for anxiety LORAZEPAM 0.5 MG TABS One tablet by mouth every 8 hours as needed for anxiety LORAZEPAM [id number] Bing Gorman lubiprostone 0.024 mg oral capsule (20 sources) Chloride Channel Activator Start: 12-16-2015 End: 12-22-2015 take 1 capsule by mouth once daily as needed for constipation Lubiprostone (Amitiza) 24 MCG capsule Discontinued 24 ug PO DAILY as needed for Constipation December 16, 2015 12:00am December 22, 2015 3:01pm meloxicam 15 mg oral tablet (6 sources) Nonsteroidal Anti-inflammatory Drug End: 02-14-2015 take 1 tablet by mouth once daily as needed MELOXICAM 15 MG TABS One tablet by mouth daily as needed MELOXICAM [id number] Anna Xiao metaxalone 800 mg oral tablet (6 sources) Muscle Relaxant End: 02-14-2015 take 1 tablet by mouth every eight hours as needed for muscle spasms METAXALONE 800 MG TABS One tablet by mouth every 8 hours as needed for muscle spasms METAXALONE [id number] Bing Gorman MULTIPLE VITAMIN (2 sources) take 1 tablet by mouth once daily MULTIVITAMINS CAPS One tablet by mouth daily MULTIPLE VITAMIN [id number] Bing Gorman MULTIPLE VITAMIN (1 source) take 1 tablet by mouth once daily MULTIVITAMINS CAPS One tablet by mouth daily MULTIPLE VITAMIN [id number] Bing Gomran naloxone 4 mg/actuation nasal spray (NARCAN) (5 sources) End: 06-17-2024 naloxone 4 mg/actuation nasal spray (NARCAN) [address] [employer] [place] by nasal (alternating) route as needed for known or suspected opioid overdose. Use 1 spray in one nostril as needed for overdose. May repeat every 2 to 3 min in alternating nostrils until medical assistance is available 06/17/2024 Discontinued naloxone 4 mg/ac tuation nasal spray (NARCAN) [address] [employer] [place] by nasal (alternating) route as needed for known or suspected opioid overdose. Use 1 spray in one nostril as needed for overdose. May repeat every 2 to 3 min in alternating nostrils until medical assistance is available Active [place]-3 Fatty Acids-Fish Oil (Fish Oil 1,000 Mg Capsule) 1 EACH capsule (20 sources) Start: 10-10-2015 End: 12-22-2015 [place]-3 Fatty Acids-Fish Oil (Fish Oil 1,000 Mg Capsule) 1 EACH capsule Discontinued 1 EACH PO DAILY October 10, 2015 11:03am December 22, 2015 3:01pm Start: 10-10-2015 End: 12-22-2015 [place]-3 Fatty Acids-Fish Oil (Fish Oil 1,000 Mg Capsule) 1 EACH capsule Discontinued 1 NMA PO DAILY October 10, 2015 12:00am December 22, 2015 3:01pm Start: 10-10-2015 End: 12-22-2015 [place]-3 Fatty Acids-Fish Oil (Fish Oil 1,000 Mg Capsule) 1 EACH capsule Discontinued 1 EACH PO DAILY October 09, 2015 11:00pm December 22, 2015 2:01pm Start: 10-10-2015 End: 12-22-2015 [place]-3 Fatty Acids-Fish Oil (Fish Oil 1,000 Mg Capsule) 1 EACH capsule Discontinued 1 EACH PO DAILY October 10, 2015 12:00am December 22, 2015 3:01pm ondansetron 4 mg disintegrating oral tablet (20 sources) Serotonin-3 Receptor Antagonist Start: 06-18-2021 End: 11-22-2021 take 1 tablet by mouth every eight hours as needed for nausea Ondansetron 4 MG tablet Discontinued 4 mg PO EVERY 8 HOURS NEEDED as needed for Nausea June 18, 2021 1:00am November 22, 2021 9:14am phenazopyridine hydrochloride 200 mg oral tablet (20 sources) Start: 05-26-2017 End: 04-26-2019 take 1 tablet by mouth twice daily as needed for pain Phenazopyridine 200 MG tablet Discontinued 200 mg PO TWICE DAILY NEEDED as needed for Pain 10 0 May 26, 2017 1:00am April 26, 2019 11:35am POLYETHYLENE GLYCOL 3350 (1 source) Osmotic Laxative Start: 07-31-2016 MIRALAX PACK 2 oral in liquid daily POLYETHYLENE GLYCOL 3350 [id number] Anna N Padilla POLYETHYLENE GLYCOL 3350 (14 sources) Start: 07-31-2016 MIRALAX PACK 2 oral in liquid daily POLYETHYLENE GLYCOL 3350 [id number] Anna N Padilla POLYETHYLENE GLY COL 3350 ORAL Take by mouth as needed. Active potassium (3 sources) POTASSIUM TABS POTASSIUM TABS [id number] Rubens Terrazas raNITIdine 150 mg oral tablet (7 sources) Histamine-2 Receptor Antagonist Start: End: ranitidine (ZANTAC) 150 mg tablet 03/10/2016 06/17/2024 Discontinued temazepam 15 mg oral capsule (6 sources) Benzodiazepine End: take 1 tablet by mouth at bedtime as needed for sleep RESTORIL 15 MG CAPS One tablet by mouth at bedtime as needed for sleep TEMAZEPAM [id number] Bing Gorman terbinafine 250 mg oral tablet (20 sources) Allylamine Antifungal Start: End: take 1 tablet by mouth once daily Terbinafine Hcl 250 mg tablet Discontinued 250 mg PO DAILY November 22, 2021 9:14am April 15, 2022 11:25am tiotropium 0.018 mg inhalant powder (9 sources) Anticholinergic Start: 014 End: take 1 capsule by inhalation once daily SPIRIVA HANDIHALER 18 MCG CAPS 1 capsule inhilation daily TIOTROPIUM BROMIDE MONOHYDRATE [id number] Gerardo Palomino Start: 08-27-2013 take 1 capsule by in halation once daily SPIRIVA HANDIHALER 18 MCG CAPS 1 capsule inhilation daily TIOTROPIUM BROMIDE MONOHYDRATE [id number] Gerardo Palomino End: 02-14-2015 take 1 capsule by inhalation once daily SPIRIVA HANDIHALER 18 MCG CAPS 1 capsule inhilation daily TIOTROPIUM BROMIDE MONOHYDRATE [id number] Anna Xiao take 1 capsule by in halation once daily SPIRIVA HANDIHALER 18 MCG CAPS 1 capsule inhilation daily TIOTROPIUM BROMIDE MONOHYDRATE [id number] Bing Gorman tiZANidine 4 mg oral capsule (9 sources) Central alpha-2 Adrenergic Agonist Start: 07-31-2016 take 1 tablet by mouth twice daily TIZANIDINE HCL 4 MG CAPS One tablet by mouth twice daily TIZANIDINE HCL [id number] Anna Padilla Start: 08-27-2013 End: 07-13-2014 take 1 tablet by mouth once daily TIZANIDINE HCL 4 MG TABS One tablet by mouth daily TIZANIDINE HCL [id number] Gerardo Palomino triamcinolone acetonide 40 mg/ml injectable suspension (1 source) Corticosteroid Start: 09-23-2018 End: 09-23-2018 Kenalog (triamcinolone acetonide) 40 mg/mL suspension for injection Discontinued 60 MG INTRAARTIC ONCE 1.5 September 23, 2018 1:40pm September 23, 2018 2:43pm vitamin k2 0.04 mg oral tablet (20 sources) Start: 04-26-2019 End: 11-22-2021 Vitamin K2 40 mcg tablet Discontinued 100 ug PO DAILY April 26, 2019 1:00am November 22, 2021 9:15am supplement zinc gluconate (6 sources) Start: 08-27-2013 EQL ZINC 50 MG TABS as directed ZINC GLUCONATE [id number] Gerardo Palomino Start: 08-27-2013 End: 07-13-2014 EQL ZINC 50 MG TABS as direc wagner ZINC GLUCONATE [id number] Bing Gorman Start: 08-27-2013 End: 07-13-2014 EQL ZINC 50 MG TABS as dire wagner ZINC GLUCONATE [id number] Gerardo Palomino Problems Active Problems Problem Classification Problem Date Documented Date Episodic/Chronic Acute and chronic tonsillitis (20 sources) Disorder of tonsil AND/OR adenoid; Translations: [Chronic disease of tonsils and adenoids, unspecified] 05-02-2019 Chronic Anxiety disorders (12 sources) Generalized anxiety disorder; Translations: [Generalized anxiety disorder] Onset: 08-14-2006 11-13-2023 Chronic Asthma (20 sources) Moderate persistent asthma; Translations: [Asthma] Onset: 07-26-2015 07-26-2015 Chronic Calculus of urinary tract (20 sources) Kidney stone; Translations: [Calculus of kidney] 02-15-2019 Episodic Chronic obstructive pulmonary disease and bronchiectasis (20 sources) Mild chronic obstructive pulmonary disease; Translations: [Moderate chronic obstructive pulmonary disease] Onset: 10-26-2015 Resolved: 01-30-2016 01-30-2016 Chronic Coagulation and hemorrhagic disorders (20 sources) Spontaneous hemorrhage; Translations: [Spontaneous ecchymoses] 11-09-2021 Episodic Esophageal disorders (12 sources) Gastroesophageal reflux disease; Translations: [Gastro-esophageal reflux disease without esophagitis] Onset: 08-14-2006 11-13-2023 Chronic Fracture of upper limb (20 sources) Injury of wrist; Translations: [Fracture of unspecified carpal bone, left wrist, initial encounter for closed fracture] 01-18-2020 Episodic Nausea and vomiting (20 sources) Nausea, vomiting and diarrhea; Translations: [Nausea with vomiting, unspecified] 06-26-2021 Episodic Osteoarthritis (20 sources) Arthritis; Translations: [Unspecified osteoarthritis, unspecified site] Chronic Osteoporosis (13 sources) Osteoporosis; Translations: [Age-related osteoporosis without current pathological fracture] Onset: 03-25-2016 03-25-2016 Chronic Other acquired deformities (2 sources) Scoliosis, unspecified; Translations: [Scoliosis [and kyphoscoliosis], idiopathic] Chronic Other aftercare (1 source) penitentiary (current) use of non-steroidal anti-inflammatories (NSAID); Translations: [penitentiary (current) use of non-steroidal anti-inflammatories (NSAID)] Onset: 11-18-2024 Episodic Other bone disease and musculoskeletal deformities (20 sources) Scoliosis deformity of spine; Translations: [Scoliosis, unspecified] Onset: 08-27-2013 08-30-2013 Chronic Other connective tissue disease (20 sources) Neuropathic pain; Translations: [Neuralgia and neuritis, unspecified] 06-28-2019 Episodic Other lower respiratory disease (20 sources) Hypoxemia; Translations: [Hypoxemia] 01-17-2020 Episodic Other lower respiratory disease (20 sources) Nodule of lung; Translations: [Solitary pulmonary nodule] 04-09-2017 Episodic Other lower respiratory disease (5 sources) Multiple nodules of lung; Translations: [Other nonspecific abnormal finding of lung field] 02-17-2024 Episodic Other lower respiratory disease (6 sources) Other nonspecific abnormal finding of lung field; Translations: [Other nonspecific abnormal finding of lung field] Onset: 09-16-2024 03-03-2024 Episodic Other non-traumatic joint disorders (20 sources) Ulnar impaction syndrome of left wrist; Translations: [Other specified joint disorders, left wrist] 03-19-2021 Episodic Other non-traumatic joint disorders (20 sources) Pain in wrist; Translations: [Pain in left wrist] 03-19-2021 Episodic Other non-traumatic joint disorders (2 sources) Pain of left wrist; Translations: [Pain in left wrist] 03-19-2021 Episodic Other upper respiratory disease (20 sources) Rhinitis; Translations: [Chronic rhinitis] 05-02-2019 Chronic Other upper respiratory disease (12 sources) Allergic rhinitis; Translations: [Allergic rhinitis, unspecified] Onset: 08-14-2006 11-13-2023 Chronic Other upper respiratory disease (20 sources) Acute bronchospasm; Translations: [Acute bronchospasm] 02-16-2019 Episodic Pneumonia (except that caused by tuberculosis or sexually transmitted disease) (20 sources) Pneumonia; Translations: [Pneumonia, unspecified organism] 06-27-2019 Episodic Pulmonary heart disease (20 sources) Pulmonary embolism; Translations: [Other pulmonary embolism without acute cor pulmonale] 01-17-2020 Episodic Residual codes; unclassified (20 sources) History of clinical finding in subject; Translations: [Personal history of other specified conditions] 02-16-2019 Episodic Residual codes; unclassified (20 sources) History of operative procedure on foot; Translations: [Other specified postprocedural states] 05-02-2019 Episodic Residual codes; unclassified (20 sources) History of hernia repair; Translations: [Other specified postprocedural states] 07-15-2019 Episodic Residual codes; unclassified (20 sources) History of colonoscopy; Translations: [Other specified postprocedural states] 07-15-2019 Episodic Comment on above: 03/05/18 Residual codes; unclassified (20 sources) H/O Spinal surgery; Translations: [Other specified postprocedural states] 05-02-2019 Episodic Comment on above: L4-S1 fusion in Jan Rheumatoid arthritis and related disease (2 sources) Rheumatoid arthritis without rheumatoid factor, multiple sites; Translations: [Inflammatory polyarthropathy] Onset: 01-21-2025 Chronic Screening and history of mental health and substance abuse codes (3 sources) Ex-cigarette smoker; Translations: [Personal history of nicotine dependence] Onset: 11-30-2024 02-17-2024 Episodic Spondylosis; intervertebral disc disorders; other back problems (20 sources) Disorder of lumbar disc; Translations: [Unspecified thoracic, thoracolumbar and lumbosacral intervertebral disc disorder] 02-15-2019 Chronic Spondylosis; intervertebral disc disorders; other back problems (20 sources) Disorder of lumbar disc; Translations: [Lumbar radiculopathy] Onset: 08-27-2013 08-30-2013 Episodic Unclassified (7 sources) M54.12 - Radiculopathy, cervical region Unclassified (1 source) Ground glass opacity present on imaging of lung 11-30-2024 Unclassified (1 source) Asthma-COPD overlap syndrome (HCC); Translations: [Asthma-COPD overlap syndrome (HCC)] Onset: 11-30-2024 Viral infection (20 sources) Herpes simplex; Translations: [Herpesviral infection, unspecified] 05-02-2019 Episodic Past or Other Problems Problem Classification Problem Date Documented Date Episodic/Chronic Abdominal hernia (12 sources) Hernia of anterior abdominal wall; Translations: [Ventral hernia without obstruction or gangrene] Onset: 02-06-2016 02-06-2016 Episodic Disorders of teeth and jaw (1 source) Arthralgia of left temporomandibular joint; Translations: [Arthralgia of left temporomandibular joint] Onset: 07-07-2024 Episodic Other liver diseases (1 source) Abnormal levels of other serum enzymes; Translations: [Abnormal levels of other serum enzymes] Onset: 08-17-2024 Episodic Other lower respiratory disease (8 sources) Dyspnea; Translations: [Lung mass] Onset: 08-23-2014 Resolved: 01-30-2016 01-30-2016 Episodic Other lower respiratory disease (1 source) Lung mass; Translations: [Other nonspecific abnormal finding of lung field] Onset: 08-23-2014 08-23-2014 Episodic Other non-epithelial cancer of skin (12 sources) Malignant neoplasm of skin; Translations: [Unspecified malignant neoplasm of skin, unspecified] Onset: 05-19-2013 05-19-2013 Episodic Other screening for suspected conditions (not mental disorders or infectious disease) (20 sources) Mammography abnormal; Translations: [Other abnormal and inconclusive findings on diagnostic imaging of breast] Onset: 10-01-2024 12-10-2021 Episodic Comment on above: diagnostic mammogram & breast US ordered Unclassified (20 sources) Bladder sling clipped 07-15-2019 Comment on above: 03/06/18 Unclassified (20 sources) history bladder sling 07-15-2019 Unclassified (20 sources) history removal ectopic 07-15-2019 Urinary tract infections (1 source) Urinary tract infection, site not specified; Translations: [Urinary tract infection, site not specified] Onset: 03-23-2024 Episodic Results Test Name Value Interpretation Reference Range Facility Quantiferon TB-Gold+on 01-18 QFT MITOGEN MANNY > 10.00 Normal . [facility] Comment on above: Performed By: #### L [id number] #### [facility] [address] [place], [place], [id number] ([phone]) QFT NIL VALUE 0.05 IU/mL Normal . [facility] Comment on above: Performed By: #### L [id number] #### [facility] [address] [place], [place], [id number] QFT TB GOLD+ Comment Normal . [facility] Comment on above: Result Comment: Moshe tiFERON-TB Gold Plus is a qualitative indirect test for M tuberculosis infection (including disease) and is intended for use in conjunction with risk assessment, radiography, and other medical and diagnostic evaluations. The QuantiFERON-TB Gold Plus result is determined by subtracting the Nil value from either TB antigen (Ag) value. The Mitogen tube serves as a control for the test. Performed By: #### L [id number] #### [facility] [address] [place], [place], [id number] QFT TB POS CRIT Negative Normal Negative [facility] Comment on above: Result Comment: No r esponse to M tuberculosis antigens detected. Infection with M tuberculosis is unlikely, but high risk individuals should be considered for additional testing (ATS/IDSA/CDC Clinical Practice Guidelines, 2017). The reference range is an Antigen minus Nil result of <0.35 IU/mL. The specimen received for QuantiFERON testing was incubated by the ordering institution. Specific procedures outlined in our Directory of Services and in the package insert for the QuantiFERON Gold (In Tube) test must be followed to enable for proper stimulation of cells for the production of interferon gamma. Chemiluminescence immunoassay methodology Performed at: [address] [id number] Facing Baster: Mehran Pineda PhD, Phone: [phone] Performed By: #### L [id number] #### [facility] [address] [place], [address] QFT TB1+ AG MANNY 0.05 IU/mL Normal . [facility] Comment on above: Performed By: #### L [id number] #### [facility] [address] [facility] [place], [address] QFT TB2+ AG MANNY 0.06 IU/mL Normal . [facility] Comment on above: Performed By: #### L [id number] #### [facility] [address] [place], [address] Chest PA and Lateralon 01-14 Chest PA and Lateral [facility] Services [address] [place] [id number] Chest PA and Lateral MR#: [id number] Acct: [id number] Name: YENNY DING Rep #: [id number] : 1955 F 69 From: [facility] PCP: Dr. Mandy Asher MD Status: REG CLI Study: Chest PA and Lateral Date of Exam: 01/14/25 Exam# [id number] Ordering Dr: Rosa Dave MD PROCEDURE: CHEST PA AND LATERAL 01/14/2025 REASON FOR EXAM: PAIN TECHNIQUE: Procedure Code: RADCXR Modality: DX Procedure: CHEST PA AND LATERAL COMPARISON: Right rib series 08/04/2023. RAD/Chest PA and Lateral IMPRESSION: Degenerative changes, scoliosis, and partially visualized lumbar surgery noted. Generalized osteopenia is present. Lungs appear clear of acute disease. No pleural effusion or pneumothorax is seen. The cardiomediastinal silhouette is stable, without evidence of cardiomegaly. Reading Location: [place] [address] CC: Dr. Mandy Asher MD; Dr. Rosa Dave MD Metal Furniture Repairer: Signed Normal [facility] Qualitative QuantiFERON-TB g old in tube testOrdered By: Rosa Dave on 01-14-2025 M. tuberculosis tuberculin stim IFN-g Ql (Bld) 0.05 IU/mL . [facility] Absolute lymphocyte countOrd ered By: Rosa Dave on 01-13-2025 Lymphocytes Auto (Unsp spec) [#/Vol] 2.88 10*3/uL 0.83-4.51 [facility] Absolute neutrophil countOrd ered By: Rosanicole Dave on 01-13-2025 Neutrophils (Bld) [#/Vol] 3.2 10*3/uL 2.0-7.7 [facility] Anion gap in Serum or Plasma Ordered By: Rosa Dave on 01-13-2025 Anion gap [Moles/Vol] 12 mmol/L 5-15 [facility] Automated lymphocyte count a s percentage of total leukocytesOrdered By: Rosa Dave on 01-13-2025 Lymphocytes/100 WBC Auto (Unsp spec) 42.2 % High 19-41 [facility] BUN/creatinine ratioOrdered By: Rosanicole Dave on 01-13-2025 Urea nitrogen/Creatinine [Mass ratio] 22.4 mg/mg High 10-20 [facility] Basophil percentageOrdered B y: Rosanicole Dave on 01-13-2025 Basophils/100 WBC (Bld) 0.6 % 0-1 [facility] Bilirubin, totalOrdered By: Rosa Dave on 01-13-2025 Bilirubin [Mass/Vol] 0.56 mg/dL 0.00-1.30 [facility] CBC W/Diff, Automatedon 01-03 Absolute Lymph 2.88 X10 3/uL Normal 0.83-4.51 [facility] Comment on above: Performed By: #### L 100.0100, [id number] #### [facility] [address] [place], [address] Absolute Neut 3.2 X10 3/uL Normal 2.0-7.7 [facility] Comment on above: Performed By: #### L 100.0100, [id number] #### [facility] [address] [place], [address] Basophils/100 WBC (Bld) 0.6 % Normal 0-1 [facility] Comment on above: Performed By: #### L 100.0100, [id number] #### [facility] [address] [place], [address] Eosinophils/100 WBC (Bld) 1.2 % Normal 0-5 [facility] Comment on above: Performed By: #### L 100.0100, [id number] #### [facility] [address] [place], [address] Erythrocyte distribution width (RBC) [Ratio] 13.6 % Normal 11.6-14.6 [facility] Comment on above: Performed By: #### L 100.0100, [id number] #### [facility] [address] [place], [address] Hematocrit (Bld) [Volume fraction] 42.8 % Normal 37-47 [facility] Comment on above: Performed By: #### L 100.0100, [id number] #### [facility] [address] [place], [address] Hemoglobin (Bld) [Mass/Vol] 14.0 g/dL Normal 12.0-15.0 [facility] Comment on above: Performed By: #### L 100.0100, [id number] #### [facility] [address] [place], [address] IG% 0.400 Normal 0.0-0.9 [facility] Comment on above: Result Comment: IG% - Immature Granulocytes (promyelocytes, myelocytes and metamyelocytes) > 1% indicates that a LEFT SHIFT is Present. Performed By: #### L 100.0100, [id number] #### [facility] [address] [place], [address] Lymphocytes/100 WBC (Bld) 42.2 % High 19-41 [facility] Comment on above: Performed By: #### L 100.0100, [id number] #### [facility] [address] [place], [address] MCH (RBC) [Entitic mass] 33.0 pg High 27.0-32.0 [facility] Comment on above: Performed By: #### L 100.0100, [id number] #### [facility] [address] [place], [address] MCHC (RBC) [Mass/Vol] 32.7 g/dL Normal 32-36 [facility] Comment on above: Performed By: #### L 100.0100, [id number] #### [facility] [address] [place], [address] MCV (RBC) [Entitic vol] 100.9 fL High 81-99 [facility] Comment on above: Performed By: #### L 100.0100, L500.4050 #### [facility] [address] [place], [address] Monocytes/100 WBC (Bld) 8.9 % Normal 0-10 [facility] Comment on above: Performed By: #### L 100.0100, L500.4050 #### [facility] [address] [place], [address] Neutrophils/100 WBC (Bld) 46.7 % Low 47-70 [facility] Comment on above: Performed By: #### L 100.0100, L500.4050 #### [facility] [address] [place], [address] Nucleated RBC (Bld) [#/Vol] 0 10*3/uL Normal 0-5 [facility] Comment on above: Performed By: #### L 100.0100, L500.4050 #### [facility] [address] [place], [address] Platelet mean volume (Bld) [Entitic vol] 10.1 fL Normal 6.2-12.0 [facility] Comment on above: Performed By: #### L 100.0100, L500.4050 #### [facility] [address] [place], [address] Platelets (Bld) [#/Vol] 240 10*3/uL Normal 150-450 [facility] Comment on above: Performed By: #### L 100.0100, L500.4050 #### [facility] [address] [place], [address] RBC (Bld) [#/Vol] 4.24 10*6/uL Normal 4.2-5.4 [facility] Comment on above: Performed By: #### L 100.0100, L500.4050 #### [facility] [address] [place], [address] RDW SD 51.3 fl High 35.1-43.9 [facility] Comment on above: Performed By: #### L 100.0100, L500.4050 #### [facility] [address] [place], [address] WBC (Bld) [#/Vol] 6.8 10*3/uL Normal 4.4-11.0 [facility] Comment on above: Performed By: #### L 100.0100, L500.4050 #### [facility] [address] [place], [address] Carbon dioxide, total [Moles /volume] in Central venous bloodOrdered By: Rosa Dave on 01-13-2025 CO2 [Moles/Vol] 25.0 mmol/L 21.0-32.0 [facility] Chloride assayOrdered By: Magalys Dave on 01-13-2025 Chloride [Moles/Vol] 107 mmol/L 98-108 [facility] Comprehensive Metabolic Prof ilon 01-13-2025 Albumin [Mass/Vol] 4.0 g/dL Normal 3.4-4.8 [facility] Comment on above: Performed By: #### L 100.0100, L500.4050 #### [facility] [address] [place], [address] Albumin/Globulin [Mass ratio] 1.8 {ratio} Normal 0.9-2.4 [facility] Comment on above: Performed By: #### L 100.0100, L500.4050 #### [facility] [address] [place], [address] ALK PHOS 43 U/L Normal 35-104 [facility] Comment on above: Performed By: #### L 100.0100, L500.4050 #### [facility] [address] [place], [address] ALT [Catalytic activity/Vol] 57 U/L High <=34 [facility] Comment on above: Performed By: #### L 100.0100, L500.4050 #### [facility] [address] [place], [address] AST [Catalytic activity/Vol] 50 U/L High <=31 [facility] Comment on above: Performed By: #### L 100.0100, L500.4050 #### [facility] [address] [place], [address] Bilirubin [Mass/Vol] 0.56 mg/dL Normal 0.00-1.30 [facility] Comment on above: Performed By: #### L 100.0100, L500.4050 #### [facility] [address] [place], [address] BUN/CRE 22.4 RATIO High 10-20 [facility] Comment on above: Performed By: #### L 100.0100, L500.4050 #### [facility] [address] [place], [address] Calcium [Mass/Vol] 9.0 mg/dL Normal 7.6-11.0 [facility] Comment on above: Performed By: #### L 100.0100, L500.4050 #### [facility] [address] [place], [address] Chloride [Moles/Vol] 107 mmol/L Normal 98-108 [facility] Comment on above: Performed By: #### L 100.0100, L500.4050 #### [facility] [address] [place], [address] CO2 [Moles/Vol] 25.0 mmol/L Normal 21.0-32.0 [facility] Comment on above: Performed By: #### L 100.0100, L500.4050 #### [facility] [address] [place], [address] Creatinine [Mass/Vol] 0.78 mg/dL Normal 0.70-1.20 [facility] Comment on above: Performed By: #### L 100.0100, L500.4050 #### [facility] [address] [place], [address] GAP 12 Normal 5-15 [facility] Comment on above: Performed By: #### L 100.0100, L500.4050 #### [facility] [address] [place], [address] GFR/1.73 sq M.predicted among non-blacks MDRD (S/P/Bld) [Vol rate/Area] 81 mL/min/{1.73_m2} Normal >60 [facility] Comment on above: Result Comment: mL/m in/1.73m2 CKD-EPI Creatinine Equation (2020) Performed By: #### L 100.0100, L500.4050 #### [facility] [address] [place], [address] Globulin (S) [Mass/Vol] 2.3 g/dL Normal 2.2-4.2 [facility] Comment on above: Performed By: #### L 100.0100, L500.4050 #### [facility] [address] [place], [address] Glucose [Mass/Vol] 90 mg/dL Normal 70-99 [facility] Comment on above: Performed By: #### L 100.0100, L500.4050 #### [facility] [address] [place], [address] Potassium [Moles/Vol] 3.6 mmol/L Normal 3.3-5.1 [facility] Comment on above: Performed By: #### L 100.0100, L500.4050 #### [facility] [address] [place], [address] Sodium [Moles/Vol] 143 mmol/L Normal 133-145 [facility] Comment on above: Performed By: #### L 100.0100, L500.4050 #### [facility] [address] [place], [address] T PROT 6.3 g/dL Normal 5.9-8.4 [facility] Comment on above: Performed By: #### L 100.0100, L500.4050 #### [facility] [address] [place], [place], [id number] Urea nitrogen [Mass/Vol] 18 mg/dL Normal 4-19 [facility] Comment on above: Performed By: #### L 100.0100, L500.4050 #### [facility] [address] [place], [place], [id number] Eosinophil percentageOrdered By: Rosa Dave on 01-13-2025 Eosinophils/100 WBC (Bld) 1.2 % 0-5 [facility] Erythrocyte distribution wid th ratioOrdered By: [facility] Erythrocyte distribution width (RBC) [Ratio] 13.6 % 11.6-14.6 [facility] Erythrocyte distribution wid th standard deviationOrdered By: [facility] Jolie on 01-13-2025 Erythrocyte distribution width (RBC) [Ratio] 51.3 fl High 35.1-43.9 [facility] Glomerular filtration rate ( GFR) estimation/1.73 sq m using serum, plasma, or whole bOrdered By: Rosanicole Dave on 01-13-2025 GFR/1.73 sq M.predicted among non-blacks MDRD (S/P/Bld) [Vol rate/Area] 81 mL/min/{1.73_m2} >60 [facility] Comment on above: mL/min/1.73m2 CKD-EP I Creatinine Equation (2020) Hematocrit Auto (Bld) [Volum e fraction]Ordered By: [facility] Jolie on 01-13-2025 Hematocrit (Bld) [Volume fraction] 42.8 % 37-47 [facility] Hemoglobin measurementOrdere d By: Rosa Dave on 01-13-2025 Hemoglobin (Bld) [Mass/Vol] 14.0 g/dL 12.0-15.0 [facility] Immature granulocytes/100 WB C Auto (Bld)Ordered By: Rosa Dave on 01-13-2025 Immature granulocytes/100 WBC (Bld) 0.400 % 0.0-0.9 [facility] Comment on above: IG% - Immature Granu locytes (promyelocytes, myelocytes and metamyelocytes) > 1% indicates that a LEFT SHIFT is Present. Laboratory - Chemistry and C hemistry - challengeOrdered By: Rosa Dave on 01-13-2025 AST [Catalytic activity/Vol] 50 U/L High <32 [facility] MCV (mean corpuscular volume ) determinationOrdered By: Rosa Dave on 01-13-2025 MCV (RBC) [Entitic vol] 100.9 fL High 81-99 [facility] Mean corpuscular hemoglobin (MCH) determinationOrdered By: Rosa Dave on 01-13-2025 MCH (RBC) [Entitic mass] 33.0 pg High 27.0-32.0 [facility] Mean corpuscular hemoglobin concentration (MCHC) determinationOrdered By: Rosa Dave on 01-13-2025 MCHC (RBC) [Mass/Vol] 32.7 g/dL 32-36 [facility] Mean platelet volume determi nationOrdered By: Rosa Dave on 01-13-2025 Platelet mean volume (Bld) [Entitic vol] 10.1 fL 6.2-12.0 [facility] Monocyte percentageOrdered B y: Rosa Dave on 01-13-2025 Monocytes/100 WBC (Bld) 8.9 % 0-10 [facility] Neutrophil percentageOrdered By: Rosa Dave on 01-13-2025 Neutrophils/100 WBC (Bld) 46.7 % Low 47-70 [facility] Nucleated red blood cell per centageOrdered By: Rosa Dave on 01-13-2025 Nucleated RBC/100 WBC (Bld) [Ratio] 0 % 0-5 [facility] Platelet countOrdered By: Magalys Dave on 01-13-2025 Platelets (Bld) [#/Vol] 240 10*3/uL 150-450 [facility] Potassium measurement (mass/ volume)Ordered By: Rosa Dave on 01-13-2025 Potassium (Unsp spec) [Mass/Vol] 3.6 mmol/L 3.3-5.1 [facility] RBC Auto (Bld) [#/Vol]Ordere d By: Rosa Dave on 01-13-2025 RBC (Bld) [#/Vol] 4.24 10*6/uL 4.2-5.4 [facility] Serum creatinine measurement (mass/volume)Ordered By: Rosa Dave on 01-13-2025 Creatinine [Mass/Vol] 0.78 mg/dL 0.70-1.20 [facility] Serum globulin measurementOr dered By: Rosa Dave on 01-13-2025 Globulin (S) [Mass/Vol] 2.3 g/dL 2.2-4.2 [facility] Serum glucose measurement (m ass/volume)Ordered By: Rosa Dave on 01-13-2025 Glucose [Mass/Vol] 90 mg/dL 70-99 [facility] Serum or plasma alanine sotelo otransferase (ALT) measurementOrdered By: Rosa Dave on 01-13-2025 ALT [Catalytic activity/Vol] 57 U/L High <35 [facility] Serum or plasma albumin hayley urement (mass/volume)Ordered By: Rosa Dave on 01-13-2025 Albumin [Mass/Vol] 4.0 g/dL 3.4-4.8 [facility] Serum or plasma albumin/glob ulin mass ratioOrdered By: Rosa Dave on 01-13-2025 Albumin/Globulin [Mass ratio] 1.8 {ratio} 0.9-2.4 [facility] Serum or plasma alkaline victor manuel sphatase measurementOrdered By: Rosa Dave on 01-13-2025 ALP [Catalytic activity/Vol] 43 U/L 35-104 [facility] Serum or plasma calcium hayley urement (mass/volume)Ordered By: Rosa Dave on 01-13-2025 Calcium [Mass/Vol] 9.0 mg/dL 7.6-11.0 [facility] Serum or plasma urea nitroge n measurement (mass/volume)Ordered By: Rosa Dave on 01-13-2025 Urea nitrogen [Mass/Vol] 18 mg/dL 4-19 [facility] Sodium levelOrdered By: Samantha Dave on 01-13-2025 Sodium [Moles/Vol] 143 mmol/L 133-145 [facility] Total proteinOrdered By: Thom Dave on 01-13-2025 Protein [Mass/Vol] 6.3 g/dL 5.9-8.4 [facility] White blood cell (WBC) count Ordered By: Rosa Dave on 01-13-2025 WBC (Bld) [#/Vol] 6.8 10*3/uL 4.4-11.0 [facility] Absolute lymphocyte countOrd ered By: Rosanicole Dave on 12-23-2024 Lymphocytes Auto (Unsp spec) [#/Vol] 2.26 10*3/uL 0.83-4.51 [facility] Absolute neutrophil countOrd ered By: Rosanicole Dave on 12-23-2024 Neutrophils (Bld) [#/Vol] 5.4 10*3/uL 2.0-7.7 [facility] Anion gap in Serum or Plasma Ordered By: Rosa Dave on 12-23-2024 Anion gap [Moles/Vol] 17 mmol/L High 5-15 [facility] Automated lymphocyte count a s percentage of total leukocytesOrdered By: Rosa Dave on 12-23-2024 Lymphocytes/100 WBC Auto (Unsp spec) 26.2 % 19-41 [facility] BUN/creatinine ratioOrdered By: [facility] Jolie on 12-23-2024 Urea nitrogen/Creatinine [Mass ratio] 28.7 mg/mg High 10-20 [facility] Basophil percentageOrdered B y: Rosa Dave on 12-23-2024 Basophils/100 WBC (Bld) 0.5 % 0-1 [facility] Bilirubin, totalOrdered By: Rosa Dave on 12-23-2024 Bilirubin [Mass/Vol] 1.56 mg/dL High 0.00-1.30 [facility] CBC W/Diff, Automatedon 12-04 Absolute Lymph 2.26 X10 3/uL Normal 0.83-4.51 [facility] Comment on above: Performed By: #### L 100.0100, L500.4050 #### [facility] [address] [facility] [place], [address] Absolute Neut 5.4 X10 3/uL Normal 2.0-7.7 [facility] Comment on above: Performed By: #### L 100.0100, L500.4050 #### [facility] [address] [place], [address] Basophils/100 WBC (Bld) 0.5 % Normal 0-1 [facility] Comment on above: Performed By: #### L 100.0100, L500.4050 #### [facility] [address] [place], [address] Eosinophils/100 WBC (Bld) 1.2 % Normal 0-5 [facility] Comment on above: Performed By: #### L 100.0100, L500.4050 #### [facility] [address] [place], [address] Erythrocyte distribution width (RBC) [Ratio] 13.3 % Normal 11.6-14.6 [facility] Comment on above: Performed By: #### L 100.0100, L500.4050 #### [facility] [address] [place], [address] Hematocrit (Bld) [Volume fraction] 45.0 % Normal 37-47 [facility] Comment on above: Performed By: #### L 100.0100, L500.4050 #### [facility] [address] [place], [address] Hemoglobin (Bld) [Mass/Vol] 14.7 g/dL Normal 12.0-15.0 [facility] Comment on above: Performed By: #### L 100.0100, L500.4050 #### [facility] [address] [place], [address] IG% 0.500 Normal 0.0-0.9 [facility] Comment on above: Result Comment: IG% - Immature Granulocytes (promyelocytes, myelocytes and metamyelocytes) > 1% indicates that a LEFT SHIFT is Present. Performed By: #### L 100.0100, L500.4050 #### [facility] [address] [place], [address] Lymphocytes/100 WBC (Bld) 26.2 % Normal 19-41 [facility] Comment on above: Performed By: #### L 100.0100, L500.4050 #### [facility] [address] [place], [address] MCH (RBC) [Entitic mass] 33.2 pg High 27.0-32.0 [facility] Comment on above: Performed By: #### L 100.0100, L500.4050 #### [facility] [address] [place], [address] MCHC (RBC) [Mass/Vol] 32.7 g/dL Normal 32-36 [facility] Comment on above: Performed By: #### L 100.0100, L500.4050 #### [facility] [address] [place], [address] MCV (RBC) [Entitic vol] 101.6 fL High 81-99 [facility] Comment on above: Performed By: #### L 100.0100, L500.4050 #### [facility] [address] [place], [address] Monocytes/100 WBC (Bld) 8.8 % Normal 0-10 [facility] Comment on above: Performed By: #### L 100.0100, L500.4050 #### [facility] [address] [place], [address] Neutrophils/100 WBC (Bld) 62.8 % Normal 47-70 [facility] Comment on above: Performed By: #### L 100.0100, L500.4050 #### [facility] [address] [place], [address] Nucleated RBC (Bld) [#/Vol] 0 10*3/uL Normal 0-5 [facility] Comment on above: Performed By: #### L 100.0100, L500.4050 #### [facility] [address] [place], [address] Platelet mean volume (Bld) [Entitic vol] 10.0 fL Normal 6.2-12.0 [facility] Comment on above: Performed By: #### L 100.0100, L500.4050 #### [facility] [address] [place], [address] Platelets (Bld) [#/Vol] 251 10*3/uL Normal 150-450 [facility] Comment on above: Performed By: #### L 100.0100, L500.4050 #### [facility] [address] [place], [address] RBC (Bld) [#/Vol] 4.43 10*6/uL Normal 4.2-5.4 [facility] Comment on above: Performed By: #### L 100.0100, L500.4050 #### [facility] [address] [place], [address] RDW SD 50.4 fl High 35.1-43.9 [facility] Comment on above: Performed By: #### L 100.0100, L500.4050 #### [facility] [address] [place], [address] WBC (Bld) [#/Vol] 8.6 10*3/uL Normal 4.4-11.0 [facility] Comment on above: Performed By: #### L 100.0100, L500.4050 #### [facility] [address] [place], [address] Carbon dioxide, total [Moles /volume] in Central venous bloodOrdered By: Rosa Dave on 12-23-2024 CO2 [Moles/Vol] 20.4 mmol/L Low 21.0-32.0 [facility] Chloride assayOrdered By: Magalys Dave on 12-23-2024 Chloride [Moles/Vol] 103 mmol/L 98-108 [facility] Comprehensive Metabolic Prof ilon 12-23-2024 Albumin [Mass/Vol] 4.2 g/dL Normal 3.4-4.8 [facility] Comment on above: Performed By: #### L 100.0100, L500.4050 #### [facility] [address] [place], [address] Albumin/Globulin [Mass ratio] 1.6 {ratio} Normal 0.9-2.4 [facility] Comment on above: Performed By: #### L 100.0100, L500.4050 #### [facility] [address] [place], [address] ALK PHOS 46 U/L Normal 35-104 [facility] Comment on above: Performed By: #### L 100.0100, L500.4050 #### [facility] [address] [place], [address] ALT [Catalytic activity/Vol] 32 U/L Normal <=34 [facility] Comment on above: Performed By: #### L 100.0100, L500.4050 #### [facility] [address] [place], [address] AST [Catalytic activity/Vol] 30 U/L Normal <=31 [facility] Comment on above: Performed By: #### L 100.0100, L500.4050 #### [facility] [address] [place], [address] Bilirubin [Mass/Vol] 1.56 mg/dL High 0.00-1.30 [facility] Comment on above: Performed By: #### L 100.0100, L500.4050 #### [facility] [address] [place], [address] BUN/CRE 28.7 RATIO High 10-20 [facility] Comment on above: Performed By: #### L 100.0100, L500.4050 #### [facility] [address] [place], [address] Calcium [Mass/Vol] 9.4 mg/dL Normal 7.6-11.0 [facility] Comment on above: Performed By: #### L 100.0100, L500.4050 #### [facility] [address] [place], [address] Chloride [Moles/Vol] 103 mmol/L Normal 98-108 [facility] Comment on above: Performed By: #### L 100.0100, L500.4050 #### [facility] [address] [place], [address] CO2 [Moles/Vol] 20.4 mmol/L Low 21.0-32.0 [facility] Comment on above: Performed By: #### L 100.0100, L500.4050 #### [facility] [address] [place], [address] Creatinine [Mass/Vol] 0.85 mg/dL Normal 0.70-1.20 [facility] Comment on above: Performed By: #### L 100.0100, L500.4050 #### [facility] [address] [place], [address] GAP 17 High 5-15 [facility] Comment on above: Performed By: #### L 100.0100, L500.4050 #### [facility] [address] [place], [address] GFR/1.73 sq M.predicted among non-blacks MDRD (S/P/Bld) [Vol rate/Area] 74 mL/min/{1.73_m2} Normal >60 [facility] Comment on above: Result Comment: mL/m in/1.73m2 CKD-EPI Creatinine Equation (2020) Performed By: #### L 100.0100, L500.4050 #### [facility] [address] [place], [address] Globulin (S) [Mass/Vol] 2.7 g/dL Normal 2.2-4.2 [facility] Comment on above: Performed By: #### L 100.0100, L500.4050 #### [facility] [address] [place], [address] Glucose [Mass/Vol] 77 mg/dL Normal 70-99 [facility] Comment on above: Performed By: #### L 100.0100, L500.4050 #### [facility] [address] [place], [address] Potassium [Moles/Vol] 3.9 mmol/L Normal 3.3-5.1 [facility] Comment on above: Performed By: #### L 100.0100, L500.4050 #### [facility] [address] [place], [address] Sodium [Moles/Vol] 140 mmol/L Normal 133-145 [facility] Comment on above: Performed By: #### L 100.0100, L500.4050 #### [facility] [address] [place], [address] T PROT 6.9 g/dL Normal 5.9-8.4 [facility] Comment on above: Performed By: #### L 100.0100, L500.4050 #### [facility] [address] [place], [address] Urea nitrogen [Mass/Vol] 24 mg/dL High 4-19 [facility] Comment on above: Performed By: #### L 100.0100, L500.4050 #### [facility] [address] [place], [address] Eosinophil percentageOrdered By: Rosa Dave on 12-23-2024 Eosinophils/100 WBC (Bld) 1.2 % 0-5 [facility] Erythrocyte distribution wid th ratioOrdered By: Rosa Dave on 12-23-2024 Erythrocyte distribution width (RBC) [Ratio] 13.3 % 11.6-14.6 [facility] Erythrocyte distribution wid th standard deviationOrdered By: Rosa Dave on 12-23-2024 Erythrocyte distribution width (RBC) [Ratio] 50.4 fl High 35.1-43.9 [facility] Glomerular filtration rate ( GFR) estimation/1.73 sq m using serum, plasma, or whole bOrdered By: Rosa Dave on 12-23-2024 GFR/1.73 sq M.predicted among non-blacks MDRD (S/P/Bld) [Vol rate/Area] 74 mL/min/{1.73_m2} >60 [facility] Comment on above: mL/min/1.73m2 CKD-EP I Creatinine Equation (2020) Hematocrit Auto (Bld) [Volum e fraction]Ordered By: Rosa Dave on 12-23-2024 Hematocrit (Bld) [Volume fraction] 45.0 % 37-47 [facility] Hemoglobin measurementOrdere d By: Rosa Dave on 12-23-2024 Hemoglobin (Bld) [Mass/Vol] 14.7 g/dL 12.0-15.0 [facility] Immature granulocytes/100 WB C Auto (Bld)Ordered By: Rosa Dave on 12-23-2024 Immature granulocytes/100 WBC (Bld) 0.500 % 0.0-0.9 [facility] Comment on above: IG% - Immature Granu locytes (promyelocytes, myelocytes and metamyelocytes) > 1% indicates that a LEFT SHIFT is Present. Laboratory - Chemistry and C hemistry - challengeOrdered By: Rosa Dave on 12-23-2024 AST [Catalytic activity/Vol] 30 U/L <32 [facility] MCV (mean corpuscular volume ) determinationOrdered By: Rosa Dave on 12-23-2024 MCV (RBC) [Entitic vol] 101.6 fL High 81-99 [facility] Mean corpuscular hemoglobin (MCH) determinationOrdered By: Rosa Dave on 12-23-2024 MCH (RBC) [Entitic mass] 33.2 pg High 27.0-32.0 [facility] Mean corpuscular hemoglobin concentration (MCHC) determinationOrdered By: Rosa Dave on 12-23-2024 MCHC (RBC) [Mass/Vol] 32.7 g/dL 32-36 [facility] Mean platelet volume determi nationOrdered By: Rosa Dave on 12-23-2024 Platelet mean volume (Bld) [Entitic vol] 10.0 fL 6.2-12.0 [facility] Monocyte percentageOrdered B y: Rosa Dave on 12-23-2024 Monocytes/100 WBC (Bld) 8.8 % 0-10 [facility] Neutrophil percentageOrdered By: Rosa Dave on 12-23-2024 Neutrophils/100 WBC (Bld) 62.8 % 47-70 [facility] Nucleated red blood cell per centageOrdered By: Rosa Dave on 12-23-2024 Nucleated RBC/100 WBC (Bld) [Ratio] 0 % 0-5 [facility] Platelet countOrdered By: Magalys Dave on 12-23-2024 Platelets (Bld) [#/Vol] 251 10*3/uL 150-450 [facility] Potassium measurement (mass/ volume)Ordered By: Rosa Dave on 12-23-2024 Potassium (Unsp spec) [Mass/Vol] 3.9 mmol/L 3.3-5.1 [facility] RBC Auto (Bld) [#/Vol]Ordere d By: Rosa Dave on 12-23-2024 RBC (Bld) [#/Vol] 4.43 10*6/uL 4.2-5.4 [facility] Serum creatinine measurement (mass/volume)Ordered By: Rosa Dave on 12-23-2024 Creatinine [Mass/Vol] 0.85 mg/dL 0.70-1.20 [facility] Serum globulin measurementOr dered By: Rosa Dave on 12-23-2024 Globulin (S) [Mass/Vol] 2.7 g/dL 2.2-4.2 [facility] Serum glucose measurement (m ass/volume)Ordered By: Rosa Dave on 12-23-2024 Glucose [Mass/Vol] 77 mg/dL 70-99 [facility] Serum or plasma alanine sotelo otransferase (ALT) measurementOrdered By: Rosa Dave on 12-23-2024 ALT [Catalytic activity/Vol] 32 U/L <35 [facility] Serum or plasma albumin hayley urement (mass/volume)Ordered By: Rosa Dave on 12-23-2024 Albumin [Mass/Vol] 4.2 g/dL 3.4-4.8 [facility] Serum or plasma albumin/glob ulin mass ratioOrdered By: Rosa Dave on 12-23-2024 Albumin/Globulin [Mass ratio] 1.6 {ratio} 0.9-2.4 [facility] Serum or plasma alkaline victor manuel sphatase measurementOrdered By: Rosa Dave on 12-23-2024 ALP [Catalytic activity/Vol] 46 U/L 35-104 [facility] Serum or plasma calcium hayley urement (mass/volume)Ordered By: Rosa Dave on 12-23-2024 Calcium [Mass/Vol] 9.4 mg/dL 7.6-11.0 [facility] Serum or plasma urea nitroge n measurement (mass/volume)Ordered By: Rosa Dave on 12-23-2024 Urea nitrogen [Mass/Vol] 24 mg/dL High 4-19 [facility] Sodium levelOrdered By: Samantha Dave on 12-23-2024 Sodium [Moles/Vol] 140 mmol/L 133-145 [facility] Total proteinOrdered By: Thom Dave on 12-23-2024 Protein [Mass/Vol] 6.9 g/dL 5.9-8.4 [facility] White blood cell (WBC) count Ordered By: Rosa Dave on 12-23-2024 WBC (Bld) [#/Vol] 8.6 10*3/uL 4.4-11.0 [facility] CNOVon 11-30-2024 CNOV Office Visit (PULMWS ) YENNY DING ([id number]) 1955 F Date Time Provider Department 11/30/24 2:15 PM MELODY FERNANDEZ PULMWS During your visit today, we recorded the following information about you: Pulse Respiration Blood pressure Weight 81/minute 16/minute 140/82 58.1 kg Melody Fernandez MD 11/30/2024 5:17 PM Signed . Respiratory [place] Note Patient name: Yenny Ding PCP: Mandy Asher MD CC: Follow-up chest CT HPI: Yenny Ding 69 year old female former [id number] smoker, quitting in 2004 with PMH significant for history of alcohol abuse, GERD, scoliosis, rheumatoid arthritis, asthma with COPD, DVT, mild bronchiectasis, osteoporosis. Pulmonary function test showed mild obstruction and elevated exhaled nitric oxide level. Therapy consists of Wixela, bronchopulmonary hygiene and 3 times a week azithromycin. Insurance deemed change in her inhaler therapy. She preferred Symbicort. She has a known CT right upper lobe groundglass nodule. She presents today for follow-up of her 6-month surveillance CT. no change in her groundglass opacity and no new suspicious findings. From a pulmonary standpoint she states that she feels great. She has not felt this good in a long time. She denies significant limiting dyspnea, chronic cough, mucus production, wheezing, chest pain. She has not been ill with any upper respiratory infections nor required hospitalization or ED visit. DME: [employer] 3 L at night DATA: COPD Assessment Test I never cough 0 1 2 3 4 5 I cough all the time; Score 0 I have no phlegm 0 1 2 3 4 5 My chest is completely full of phlegm; Score 0 My chest does not feel tight at all 0 1 2 3 4 5 My chest chest feels very tight; Score 0 When I walk up a hill or one flight of stairs I am not breathless 0 1 2 3 4 5 When I walk up a hill or one flight or stairs I am very breathless; Score 3 I am not limited doing any activities at home 0 1 2 3 4 5 I am very limited doing activities at home; Score 0 I am confident leaving my home despite my lung condition 0 1 2 3 4 5 I am not at all confident leaving my home because of my lung condition; Score 0 I sleep soundly 0 1 2 3 4 5 don't sleep soundly because of my lungs; Score 0 I have lots of energy 0 1 2 3 4 5 I have no energy at all; Score 2 Total Score: 5 Imaging / Diagnostic Studies: DATE OF EXAM: Sep 16 2024 11:21AM [facility] 0541 - CT CHEST WO IVCON / PROCEDURE REASON: multiple diagnoses CLINICAL HISTORY: Lung nodules. Comparison: CT chest on 02/27/2024 RESULT: Limitations: None. Lines, tubes, and devices: None. Lung parenchyma and airways: The central airways are patent. There is a stable 1.2 cm groundglass density in the right upper lobe, series 6 image 62. A few stable triangular densities noted in the right lower lobe, series 6 image 151. No new nodules identified. Mild emphysema is again demonstrated. There is stable biapical scarring and subpleural opacities. No mass lesion seen. Pleural space: No pleural effusion or pneumothorax. No pleural thickening. Lower neck, lymph nodes, and mediastinum: The imaged thyroid gland is normal. No lymphadenopathy in the supraclavicular, axillary, mediastinal, or hilar regions. Heart, pericardium, and thoracic vessels: The thoracic aorta and main pulmonary artery are normal in caliber. The cardiac chambers are normal in size. Punctate coronary artery atherosclerotic calcifications are noted, although the study is not optimized for coronary assessment. No pericardial effusion or thickening. Bones and soft tissues: No destructive bone lesion. Chest wall is Unremarkable. Upper abdomen: No abnormality in the imaged upper abdomen. Localizer images: No additional findings. CT 02/2024: I personally reviewed the images as well as with the patient which show stability of her groundglass opacity and no new findings PAST MEDICAL HISTORY Diagnosis Date Asthma-COPD overlap syndrome (HCC) Diverticulosis of colon (without mention of hemorrhage) DVT (deep venous thrombosis) (HCC) Dysplasia of cervix, unspecified Esophageal reflux Ground glass opacity present on imaging of lung Irritable bowel syndrome Lumbago Other and unspecified alcohol dependence, in remission Other emphysema (HCC) minimal Other genital herpes Paroxysmal ventricular tachycardia (HCC) 07/10/1999 Occurred in monitored unit while worked up for chest pain: heart cath wnl, isoproterenol provocation test unable to stimulate abnormal rhythm Pneumonia 02/03/2012 Rheumatoid arthritis (HCC) Scoliosis 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 Normal [facility] lymphocyte countOrd ered By: Mandy Asher on 11-18-2024 Lymphocytes Auto (Unsp spec) [#/Vol] 1.03 10*3/uL 0.83-4.51 [facility] Absolute neutrophil countOrd ered By: Mandy Asher on 11-18-2024 Neutrophils (Bld) [#/Vol] 6.7 10*3/uL 2.0-7.7 [facility] Anion gap in Serum or Plasma Ordered By: Mandy Asher on 11-18-2024 Anion gap [Moles/Vol] 12 mmol/L 5-15 [facility] Automated lymphocyte count a s percentage of total leukocytesOrdered By: Mandy Asher on 11-18-2024 Lymphocytes/100 WBC Auto (Unsp spec) 12.6 % Low 19-41 [facility] BUN/creatinine ratioOrdered By: Mandy Asher on 11-18-2024 Urea nitrogen/Creatinine [Mass ratio] 18.9 mg/mg 10-20 [facility] Basophil percentageOrdered B y: Mandy Asher on 11-18-2024 Basophils/100 WBC (Bld) 0.5 % 0-1 [facility] Bilirubin, totalOrdered By: Mandy Asher on 11-18-2024 Bilirubin [Mass/Vol] 0.73 mg/dL 0.00-1.30 [facility] CBC W/Diff, Automatedon 11-02 Absolute Lymph 1.03 X10 3/uL Normal 0.83-4.51 [facility] Comment on above: Performed By: #### L [id number] #### [facility] Laboratory [address] [place], [address] Absolute Neut 6.7 X10 3/uL Normal 2.0-7.7 [facility] Comment on above: Performed By: #### [id number] #### [facility] [address] [place], [address] Basophils/100 WBC (Bld) 0.5 % Normal 0-1 [facility] Comment on above: Performed By: #### [id number] #### [facility] [address] [place], [address] Eosinophils/100 WBC (Bld) 0.2 % Normal 0-5 [facility] Comment on above: Performed By: #### [id number] #### [facility] [address] [place], [address] Erythrocyte distribution width (RBC) [Ratio] 13.4 % Normal 11.6-14.6 [facility] Comment on above: Performed By: #### [id number] #### [facility] [address] [place], [address] Hematocrit (Bld) [Volume fraction] 42.2 % Normal 37-47 [facility] Comment on above: Performed By: #### [id number] #### [facility] [address] [place], [address] Hemoglobin (Bld) [Mass/Vol] 14.0 g/dL Normal 12.0-15.0 [facility] Comment on above: Performed By: #### L [id number] #### [facility] [address] [place], [address] IG% 0.700 Normal 0.0-0.9 [facility] Comment on above: Result Comment: IG% - Immature Granulocytes (promyelocytes, myelocytes and metamyelocytes) > 1% indicates that a LEFT SHIFT is Present. Performed By: #### L [id number] #### [facility] [address] [place], [address] Lymphocytes/100 WBC (Bld) 12.6 % Low 19-41 [facility] Comment on above: Performed By: #### [id number] #### [facility] [address] [place], [address] MCH (RBC) [Entitic mass] 33.8 pg High 27.0-32.0 [facility] Comment on above: Performed By: #### [id number] #### [facility] [address] [place], [address] MCHC (RBC) [Mass/Vol] 33.2 g/dL Normal 32-36 [facility] Comment on above: Performed By: #### [id number] #### [facility] [place], [address] MCV (RBC) [Entitic vol] 101.9 fL High 81-99 [facility] Comment on above: Performed By: #### [id number] #### [facility] Laboratory [facility] [place], [address] Monocytes/100 WBC (Bld) 3.8 % Normal 0-10 [facility] Comment on above: Performed By: #### [id number] #### [facility] [address] [place], [address] Neutrophils/100 WBC (Bld) 82.2 % High 47-70 [facility] Comment on above: Performed By: #### [id number] #### [facility] [place], [address] Nucleated RBC (Bld) [#/Vol] 0 10*3/uL Normal 0-5 [facility] Comment on above: Performed By: #### [id number] #### [facility] [address] [place], [address] Platelet mean volume (Bld) [Entitic vol] 9.8 fL Normal 6.2-12.0 [facility] Comment on above: Performed By: #### [id number] #### [facility] [address] [place], [address] Platelets (Bld) [#/Vol] 244 10*3/uL Normal 150-450 [facility] Comment on above: Performed By: #### L [id number] #### [facility] [address] [place], [address] RBC (Bld) [#/Vol] 4.14 10*6/uL Low 4.2-5.4 [facility] Comment on above: Performed By: #### L [id number] #### [facility] [address] [place], [address] RDW SD 50.4 fl High 35.1-43.9 [facility] Comment on above: Performed By: #### L [id number] #### [facility] [address] [place], [address] WBC (Bld) [#/Vol] 8.2 10*3/uL Normal 4.4-11.0 [facility] Comment on above: Performed By: #### L [id number] #### [facility] [address] [place], [address] Carbon dioxide, total [Moles /volume] in Central venous bloodOrdered By: Mandy Asher on 11-18-2024 CO2 [Moles/Vol] 23.7 mmol/L 21.0-32.0 [facility] Chloride assayOrdered By: Houston Asher on 11-18-2024 Chloride [Moles/Vol] 104 mmol/L 98-108 [facility] Comprehensive Metabolic Prof ilon 11-18-2024 Albumin [Mass/Vol] 4.2 g/dL Normal 3.4-4.8 [facility] Comment on above: Performed By: #### L [id number] #### [facility] [address] [place], [address] Albumin/Globulin [Mass ratio] 1.7 {ratio} Normal 0.9-2.4 [facility] Comment on above: Performed By: #### [id number] #### [facility] [address] [place], [address] ALK PHOS 46 U/L Normal 35-104 [facility] Comment on above: Performed By: #### [id number] #### [facility] [address] [place], [address] ALT [Catalytic activity/Vol] 58 U/L High <=34 [facility] Comment on above: Performed By: #### [id number] #### [facility] [address] [place], [address] AST [Catalytic activity/Vol] 38 U/L High <=31 [facility] Comment on above: Performed By: #### [id number] #### [facility] [address] [place], [address] Bilirubin [Mass/Vol] 0.73 mg/dL Normal 0.00-1.30 [facility] Comment on above: Performed By: #### [id number] #### [facility] [address] [place], [address] BUN/CRE 18.9 RATIO Normal 10-20 [facility] Comment on above: Performed By: #### [id number] #### [facility] [address] [place], [address] Calcium [Mass/Vol] 9.2 mg/dL Normal 7.6-11.0 [facility] Comment on above: Performed By: #### [id number] #### [facility] [address] [place], [address] Chloride [Moles/Vol] 104 mmol/L Normal 98-108 [facility] Comment on above: Performed By: #### [id number] #### [facility] [address] [place], [address] CO2 [Moles/Vol] 23.7 mmol/L Normal 21.0-32.0 [facility] Comment on above: Performed By: #### [id number] #### [facility] [address] [place], [address] Creatinine [Mass/Vol] 0.81 mg/dL Normal 0.70-1.20 [facility] Comment on above: Performed By: #### [id number] #### [facility] [address] [place], [address] GAP 12 Normal 5-15 [facility] Comment on above: Performed By: #### [id number] #### [facility] [address] [place], [address] GFR/1.73 sq M.predicted among non-blacks MDRD (S/P/Bld) [Vol rate/Area] 78 mL/min/{1.73_m2} Normal >60 [facility] Comment on above: Result Comment: mL/m in/1.73m2 CKD-EPI Creatinine Equation (2020) Performed By: #### [id number] #### [facility] [address] [place], [address] Globulin (S) [Mass/Vol] 2.4 g/dL Normal 2.2-4.2 [facility] Comment on above: Performed By: #### [id number] #### [facility] [address] [place], [address] Glucose [Mass/Vol] 98 mg/dL Normal 70-99 [facility] Comment on above: Performed By: #### L [id number] #### [facility] [address] [place], [address] Potassium [Moles/Vol] 4.1 mmol/L Normal 3.3-5.1 [facility] Comment on above: Performed By: #### L [id number] #### [facility] [address] [place], [address] Sodium [Moles/Vol] 139 mmol/L Normal 133-145 [facility] Comment on above: Performed By: #### [id number] #### [facility] [address] [place], [address] T PROT 6.6 g/dL Normal 5.9-8.4 [facility] Comment on above: Performed By: #### [id number] #### [facility] [address] [place], [address] Urea nitrogen [Mass/Vol] 15 mg/dL Normal 4-19 [facility] Comment on above: Performed By: #### L [id number] #### [facility] [address] [place], [address] Eosinophil percentageOrdered By: Mandy Asher on 11-18-2024 Eosinophils/100 WBC (Bld) 0.2 % 0-5 [facility] Erythrocyte distribution wid th ratioOrdered By: Mandy Asher on 11-18-2024 Erythrocyte distribution width (RBC) [Ratio] 13.4 % 11.6-14.6 [facility] Erythrocyte distribution wid th standard deviationOrdered By: Mandy Asher on 11-18-2024 Erythrocyte distribution width (RBC) [Ratio] 50.4 fl High 35.1-43.9 [facility] Glomerular filtration rate ( GFR) estimation/1.73 sq m using serum, plasma, or whole bOrdered By: Mandy Asher on 11-18-2024 GFR/1.73 sq M.predicted among non-blacks MDRD (S/P/Bld) [Vol rate/Area] 78 mL/min/{1.73_m2} >60 [facility] Comment on above: mL/min/1.73m2 CKD-EP I Creatinine Equation (2020) Hematocrit Auto (Bld) [Volum e fraction]Ordered By: Mandy Asher on 11-18-2024 Hematocrit (Bld) [Volume fraction] 42.2 % 37-47 [facility] Hemoglobin measurementOrdere d By: Mandy Asher on 11-18-2024 Hemoglobin (Bld) [Mass/Vol] 14.0 g/dL 12.0-15.0 [facility] Immature granulocytes/100 WB C Auto (Bld)Ordered By: Mandy Asher on 11-18-2024 Immature granulocytes/100 WBC (Bld) 0.700 % 0.0-0.9 [facility] Comment on above: IG% - Immature Granu locytes (promyelocytes, myelocytes and metamyelocytes) > 1% indicates that a LEFT SHIFT is Present. Laboratory - Chemistry and C hemistry - challengeOrdered By: Mandy Asher on 11-18-2024 AST [Catalytic activity/Vol] 38 U/L High <32 [facility] MCV (mean corpuscular volume ) determinationOrdered By: Mandy Asher on 11-18-2024 MCV (RBC) [Entitic vol] 101.9 fL High 81-99 [facility] Mean corpuscular hemoglobin (MCH) determinationOrdered By: Mandy Asher on 11-18-2024 MCH (RBC) [Entitic mass] 33.8 pg High 27.0-32.0 [facility] Mean corpuscular hemoglobin concentration (MCHC) determinationOrdered By: Mandy Asher on 11-18-2024 MCHC (RBC) [Mass/Vol] 33.2 g/dL 32-36 [facility] Mean platelet volume determi nationOrdered By: Mandy Asher on 11-18-2024 Platelet mean volume (Bld) [Entitic vol] 9.8 fL 6.2-12.0 [facility] Monocyte percentageOrdered B y: Mandy Asher on 11-18-2024 Monocytes/100 WBC (Bld) 3.8 % 0-10 [facility] Neutrophil percentageOrdered By: Mandy Asher on 11-18-2024 Neutrophils/100 WBC (Bld) 82.2 % High 47-70 [facility] Nucleated red blood cell per centageOrdered By: Mandy Asher on 11-18-2024 Nucleated RBC/100 WBC (Bld) [Ratio] 0 % 0-5 [facility] Platelet countOrdered By: Houston Asher on 11-18-2024 Platelets (Bld) [#/Vol] 244 10*3/uL 150-450 [facility] Potassium measurement (mass/ volume)Ordered By: Mandy Asher on 11-18-2024 Potassium (Unsp spec) [Mass/Vol] 4.1 mmol/L 3.3-5.1 [facility] RBC Auto (Bld) [#/Vol]Ordere d By: Mandy Asher on 11-18-2024 RBC (Bld) [#/Vol] 4.14 10*6/uL Low 4.2-5.4 [facility] Serum creatinine measurement (mass/volume)Ordered By: Mandy Asher on 11-18-2024 Creatinine [Mass/Vol] 0.81 mg/dL 0.70-1.20 [facility] Serum globulin measurementOr dered By: Mandy Asher on 11-18-2024 Globulin (S) [Mass/Vol] 2.4 g/dL 2.2-4.2 [facility] Serum glucose measurement (m ass/volume)Ordered By: Mandy Asher on 11-18-2024 Glucose [Mass/Vol] 98 mg/dL 70-99 [facility] Serum or plasma alanine sotelo otransferase (ALT) measurementOrdered By: Mandy Asher on 11-18-2024 ALT [Catalytic activity/Vol] 58 U/L High <35 [facility] Serum or plasma albumin hayley urement (mass/volume)Ordered By: Mandy Asher on 11-18-2024 Albumin [Mass/Vol] 4.2 g/dL 3.4-4.8 [facility] Serum or plasma albumin/glob ulin mass ratioOrdered By: Mandy Asher on 11-18-2024 Albumin/Globulin [Mass ratio] 1.7 {ratio} 0.9-2.4 [facility] Serum or plasma alkaline victor manuel sphatase measurementOrdered By: Mandy Asher on 11-18-2024 ALP [Catalytic activity/Vol] 46 U/L 35-104 [facility] Serum or plasma calcium hayley urement (mass/volume)Ordered By: Mandy Asher on 11-18-2024 Calcium [Mass/Vol] 9.2 mg/dL 7.6-11.0 [facility] Serum or plasma urea nitroge n measurement (mass/volume)Ordered By: Mandy Asher on 11-18-2024 Urea nitrogen [Mass/Vol] 15 mg/dL 4-19 [facility] Sodium levelOrdered By: Mandy Asher on 11-18-2024 Sodium [Moles/Vol] 139 mmol/L 133-145 [facility] Total proteinOrdered By: Nohemi Asher on 11-18-2024 Protein [Mass/Vol] 6.6 g/dL 5.9-8.4 [facility] White blood cell (WBC) count Ordered By: Mandy Asher on 11-18-2024 WBC (Bld) [#/Vol] 8.2 10*3/uL 4.4-11.0 [facility] Absolute lymphocyte countOrd ered By: Mandy Asher on 11-08-2024 Lymphocytes Auto (Unsp spec) [#/Vol] 2.13 10*3/uL 0.83-4.51 [facility] Absolute neutrophil countOrd ered By: Mandy Asher on 11-08-2024 Neutrophils (Bld) [#/Vol] 6.8 10*3/uL 2.0-7.7 [facility] Anion gap in Serum or Plasma Ordered By: Mandy Asher on 11-08-2024 Anion gap [Moles/Vol] 12 mmol/L 5-15 [facility] Automated lymphocyte count a s percentage of total leukocytesOrdered By: Mandy Asher on 11-08-2024 Lymphocytes/100 WBC Auto (Unsp spec) 21.7 % 19-41 [facility] BUN/creatinine ratioOrdered By: Mandy Asher on 11-08-2024 Urea nitrogen/Creatinine [Mass ratio] 28.7 mg/mg High 10-20 [facility] Basophil percentageOrdered B y: Mandy Asher on 11-08-2024 Basophils/100 WBC (Bld) 0.4 % 0-1 [facility] Bilirubin, totalOrdered By: Mandy Asher on 11-08-2024 Bilirubin [Mass/Vol] 0.53 mg/dL 0.00-1.30 [facility] CBC W/Diff, Automatedon Absolute Lymph 2.13 X10 3/uL Normal 0.83-4.51 [facility] Comment on above: Order Comment: Order Date: 11/08/24 Order Info: 0184-1 - CBCD Performed By: #### L 501.2450, L500.4050, L100.0100, [id number] #### [facility] Laboratory [address] [place], [address] Absolute Neut 6.8 X10 3/uL Normal 2.0-7.7 [facility] Comment on above: Order Comment: Order Date: 11/08/24 Order Info: 0184-1 - CBCD Performed By: #### L 501.2450, [id number], L100.0100, [id number] #### [facility] Laboratory [address] [place], [address] Basophils/100 WBC (Bld) 0.4 % Normal 0-1 [facility] Comment on above: Order Comment: Order Date: 11/08/24 Order Info: 0184-1 - CBCD Performed By: #### L 501.2450, [id number], L100.0100, [id number] #### [facility] Laboratory [address] [place], [address] Eosinophils/100 WBC (Bld) 0.8 % Normal 0-5 [facility] Comment on above: Order Comment: Order Date: 11/08/24 Order Info: 0184-1 - CBCD Performed By: #### L 501.2450, [id number], L100.0100, [id number] #### [facility] [address] [place], [address] Erythrocyte distribution width (RBC) [Ratio] 12.6 % Normal 11.6-14.6 [facility] Comment on above: Order Comment: Order Date: 11/08/24 Order Info: 0184-1 - CBCD Performed By: #### L 501.2450, [id number], L100.0100, [id number] #### [facility] [address] [place], [address] Hematocrit (Bld) [Volume fraction] 41.4 % Normal 37-47 [facility] Comment on above: Order Comment: Order Date: 11/08/24 Order Info: 0184-1 - CBCD Performed By: #### L 501.2450, [id number], L100.0100, [id number] #### [facility] [address] [place], [address] Hemoglobin (Bld) [Mass/Vol] 13.6 g/dL Normal 12.0-15.0 [facility] Comment on above: Order Comment: Order Date: 11/08/24 Order Info: 0184-1 - CBCD Performed By: #### L 501.2450, [id number], L100.0100, [id number] #### [facility] Laboratory [address] [place], [address] IG% 0.400 Normal 0.0-0.9 [facility] Comment on above: Order Comment: Order Date: 11/08/24 Order Info: 0184-1 - CBCD Result Comment: IG% - Immature Granulocytes (promyelocytes, myelocytes and metamyelocytes) > 1% indicates that a LEFT SHIFT is Present. Performed By: #### L 501.2450, [id number], L100.0100, [id number] #### [facility] Laboratory [address] [place], [address] Lymphocytes/100 WBC (Bld) 21.7 % Normal 19-41 [facility] Comment on above: Order Comment: Order Date: 11/08/24 Order Info: 0184-1 - CBCD Performed By: #### L 501.2450, [id number], L100.0100, [id number] #### [facility] Laboratory [address] [place], [address] MCH (RBC) [Entitic mass] 33.7 pg High 27.0-32.0 [facility] Comment on above: Order Comment: Order Date: 11/08/24 Order Info: 0184-1 - CBCD Performed By: #### L 501.2450, [id number], L100.0100, [id number] #### [facility] [address] [place], [address] MCHC (RBC) [Mass/Vol] 32.9 g/dL Normal 32-36 [facility] Comment on above: Order Comment: Order Date: 11/08/24 Order Info: 0184-1 - CBCD Performed By: #### L 501.2450, [id number], L100.0100, [id number] #### [facility] Laboratory [address] [place], [address] MCV (RBC) [Entitic vol] 102.7 fL High 81-99 [facility] Comment on above: Order Comment: Order Date: 11/08/24 Order Info: 0184-1 - CBCD Performed By: #### L 501.2450, [id number], L100.0100, [id number] #### [facility] Laboratory [address] [place], [address] Monocytes/100 WBC (Bld) 7.3 % Normal 0-10 [facility] Comment on above: Order Comment: Order Date: 11/08/24 Order Info: 0184-1 - CBCD Performed By: #### L 501.2450, [id number], L100.0100, [id number] #### [facility] Laboratory [address] [place], [address] Neutrophils/100 WBC (Bld) 69.4 % Normal 47-70 [facility] Comment on above: Order Comment: Order Date: 11/08/24 Order Info: 0184-1 - CBCD Performed By: #### L 501.2450, [id number], L100.0100, [id number] #### [facility] Laboratory [address] [place], [address] Nucleated RBC (Bld) [#/Vol] 0 10*3/uL Normal 0-5 [facility] Comment on above: Order Comment: Order Date: 11/08/24 Order Info: 0184-1 - CBCD Performed By: #### L 501.2450, [id number], L100.0100, [id number] #### [facility] Laboratory [address] [place], [address] Platelet mean volume (Bld) [Entitic vol] 10.3 fL Normal 6.2-12.0 [facility] Comment on above: Order Comment: Order Date: 11/08/24 Order Info: 0184-1 - CBCD Performed By: #### L 501.2450, [id number], L100.0100, [id number] #### [facility] Laboratory [address] [place], [address] Platelets (Bld) [#/Vol] 263 10*3/uL Normal 150-450 [facility] Comment on above: Order Comment: Order Date: 11/08/24 Order Info: 0184-1 - CBCD Performed By: #### L 501.2450, [id number], L100.0100, [id number] #### [facility] Laboratory [address] [place], [address] RBC (Bld) [#/Vol] 4.03 10*6/uL Low 4.2-5.4 [facility] Comment on above: Order Comment: Order Date: 11/08/24 Order Info: 0184-1 - CBCD Performed By: #### L 501.2450, [id number], L100.0100, [id number] #### [facility] Laboratory [address] [place], [address] RDW SD 47.3 fl High 35.1-43.9 [facility] Comment on above: Order Comment: Order Date: 11/08/24 Order Info: 0184-1 - CBCD Performed By: #### L 501.2450, [id number], L100.0100, [id number] #### [facility] Laboratory [address] [place], [address] WBC (Bld) [#/Vol] 9.8 10*3/uL Normal 4.4-11.0 [facility] Comment on above: Order Comment: Order Date: 11/08/24 Order Info: 0184-1 - CBCD Performed By: #### L 501.2450, [id number], L100.0100, [id number] #### [facility] Laboratory [address] [place], [address] Carbon dioxide, total [Moles /volume] in Central venous bloodOrdered By: Mandy Asher on 11-08-2024 CO2 [Moles/Vol] 25.7 mmol/L 21.0-32.0 [facility] Chloride assayOrdered By: Houston Asher on 11-08-2024 Chloride [Moles/Vol] 104 mmol/L 98-108 [facility] Comprehensive Metabolic Prof ilon 11-08-2024 Albumin [Mass/Vol] 4.2 g/dL Normal 3.4-4.8 [facility] Comment on above: Order Comment: Order Date: 11/08/24Order Info: 0786-1 - CMPOrder Info: 3040-3 - LIPASEOrder Info: 3016-3 - TSH Performed By: #### L 100.0100, [id number] #### [facility] Laboratory [address] [place], [address] Albumin/Globulin [Mass ratio] 1.8 {ratio} Normal 0.9-2.4 [facility] Comment on above: Order Comment: Order Date: 11/08/24Order Info: 0786-1 - CMPOrder Info: 3040-3 - LIPASEOrder Info: 3016-3 - TSH Performed By: #### L 100.0100, [id number] #### [facility] Laboratory [address] [place], [address] ALK PHOS 49 U/L Normal 35-104 [facility] Comment on above: Order Comment: Order Date: 11/08/24Order Info: 86-1 - CMPOrder Info: 3040-3 - LIPASEOrder Info: 3016-3 - TSH Performed By: #### L 100.0100, [id number] #### [facility] Laboratory [address] [place], [address] ALT [Catalytic activity/Vol] 39 U/L High <=34 [facility] Comment on above: Order Comment: Order Date: 11/08/24Order Info: 86-1 - CMPOrder Info: 3040-3 - LIPASEOrder Info: 3016-3 - TSH Performed By: #### L 100.0100, [id number] #### [facility] Laboratory [address] [place], [address] AST [Catalytic activity/Vol] 29 U/L Normal <=31 [facility] Comment on above: Order Comment: Order Date: 11/08/24Order Info: 86-1 - CMPOrder Info: 3040-3 - LIPASEOrder Info: 3016-3 - TSH Performed By: #### L 100.0100, [id number] #### [facility] Laboratory [address] [place], [address] Bilirubin [Mass/Vol] 0.53 mg/dL Normal 0.00-1.30 [facility] Comment on above: Order Comment: Order Date: 11/08/24Order Info: 86-1 - CMPOrder Info: 3040-3 - LIPASEOrder Info: 3016-3 - TSH Performed By: #### L 100.0100, [id number] #### [facility] [address] [place], [address] BUN/CRE 28.7 RATIO High 10-20 [facility] Comment on above: Order Comment: Order Date: 11/08/24Order Info: 0786-1 - CMPOrder Info: 3040-3 - LIPASEOrder Info: 3016-3 - TSH Performed By: #### L 100.0100, L500.4050 #### [facility] [address] [place], [address] Calcium [Mass/Vol] 9.4 mg/dL Normal 7.6-11.0 [facility] Comment on above: Order Comment: Order Date: 11/08/24Order Info: 0786-1 - CMPOrder Info: 3040-3 - LIPASEOrder Info: 3016-3 - TSH Performed By: #### L 100.0100, L500.4050 #### [facility] [address] [place], [address] Chloride [Moles/Vol] 104 mmol/L Normal 98-108 [facility] Comment on above: Order Comment: Order Date: 11/08/24Order Info: 0786-1 - CMPOrder Info: 3040-3 - LIPASEOrder Info: 3016-3 - TSH Performed By: #### L 100.0100, [id number] #### [facility] [address] [place], [address] CO2 [Moles/Vol] 25.7 mmol/L Normal 21.0-32.0 [facility] Comment on above: Order Comment: Order Date: 11/08/24Order Info: 0786-1 - CMPOrder Info: 3040-3 - LIPASEOrder Info: 3016-3 - TSH Performed By: #### L 100.0100, L500.4050 #### [facility] [address] [place], [address] Creatinine [Mass/Vol] 0.82 mg/dL Normal 0.70-1.20 [facility] Comment on above: Order Comment: Order Date: 11/08/24Order Info: 86-1 - CMPOrder Info: 3040-3 - LIPASEOrder Info: 3016-3 - TSH Performed By: #### L 100.0100, L500.4050 #### [facility] [address] [place], [address] GAP 12 Normal 5-15 [facility] Comment on above: Order Comment: Order Date: 11/08/24Order Info: 86-1 - CMPOrder Info: 3040-3 - LIPASEOrder Info: 3015-3 - TSH Performed By: #### L 100.0100, L500.4050 #### [facility] [address] [place], [address] GFR/1.73 sq M.predicted among non-blacks MDRD (S/P/Bld) [Vol rate/Area] 77 mL/min/{1.73_m2} Normal >60 [facility] Comment on above: Order Comment: Order Date: 11/08/24Order Info: 86-1 - CMPOrder Info: 3040-3 - LIPASEOrder Info: 6-3 - TSH Result Comment: mL/m in/1.73m2 CKD-EPI Creatinine Equation (2020) Performed By: #### L 100.0100, L500.4050 #### [facility] Laboratory [address] [place], [address] Globulin (S) [Mass/Vol] 2.3 g/dL Normal 2.2-4.2 [facility] Comment on above: Order Comment: Order Date: 11/08/24Order Info: 86-1 - CMPOrder Info: 3040-3 - LIPASEOrder Info: 3016-3 - TSH Performed By: #### L 100.0100, L500.4050 #### [facility] [address] [place], [address] Glucose [Mass/Vol] 91 mg/dL Normal 70-99 [facility] Comment on above: Order Comment: Order Date: 11/08/24Order Info: 0786-1 - CMPOrder Info: 3040-3 - LIPASEOrder Info: 3016-3 - TSH Performed By: #### L 100.0100, L500.4050 #### [facility] [address] [place], [address] Potassium [Moles/Vol] 3.6 mmol/L Normal 3.3-5.1 [facility] Comment on above: Order Comment: Order Date: 11/08/24Order Info: 0786-1 - CMPOrder Info: 3040-3 - LIPASEOrder Info: 3016-3 - TSH Performed By: #### L 100.0100, L500.4050 #### [facility] [address] [place], [address] Sodium [Moles/Vol] 141 mmol/L Normal 133-145 [facility] Comment on above: Order Comment: Order Date: 11/08/24Order Info: 0786-1 - CMPOrder Info: 3040-3 - LIPASEOrder Info: 3016-3 - TSH Performed By: #### L 100.0100, L500.4050 #### [facility] [address] [place], [address] T PROT 6.5 g/dL Normal 5.9-8.4 [facility] Comment on above: Order Comment: Order Date: 11/08/24Order Info: 0786-1 - CMPOrder Info: 3040-3 - LIPASEOrder Info: 3016-3 - TSH Performed By: #### L 100.0100, L500.4050 #### [facility] [address] [place], [address] Urea nitrogen [Mass/Vol] 24 mg/dL High 4-19 [facility] Comment on above: Order Comment: Order Date: 11/08/24Order Info: 0786-1 - CMPOrder Info: 3040-3 - LIPASEOrder Info: 3016-3 - TSH Performed By: #### L 100.0100, L500.4050 #### [facility] [address] [place], [address] Eosinophil percentageOrdered By: Mandy Asher on 11-08-2024 Eosinophils/100 WBC (Bld) 0.8 % 0-5 [facility] Erythrocyte distribution wid th ratioOrdered By: Mandy Asher on 11-08-2024 Erythrocyte distribution width (RBC) [Ratio] 12.6 % 11.6-14.6 [facility] Erythrocyte distribution wid th standard deviationOrdered By: Mandy Asher on 11-08-2024 Erythrocyte distribution width (RBC) [Ratio] 47.3 fl High 35.1-43.9 [facility] Glomerular filtration rate ( GFR) estimation/1.73 sq m using serum, plasma, or whole bOrdered By: Mandy Asher on 11-08-2024 GFR/1.73 sq M.predicted among non-blacks MDRD (S/P/Bld) [Vol rate/Area] 77 mL/min/{1.73_m2} >60 [facility] Comment on above: mL/min/1.73m2 CKD-EP I Creatinine Equation (2020) Hematocrit Auto (Bld) [Volum e fraction]Ordered By: Mandy Asher on 11-08-2024 Hematocrit (Bld) [Volume fraction] 41.4 % 37-47 [facility] Hemoglobin measurementOrdere d By: Mandy Asher on 11-08-2024 Hemoglobin (Bld) [Mass/Vol] 13.6 g/dL 12.0-15.0 [facility] Immature granulocytes/100 WB C Auto (Bld)Ordered By: Mandy Asher on 11-08-2024 Immature granulocytes/100 WBC (Bld) 0.400 % 0.0-0.9 [facility] Comment on above: IG% - Immature Granu locytes (promyelocytes, myelocytes and metamyelocytes) > 1% indicates that a LEFT SHIFT is Present. Laboratory - Chemistry and C hemistry - challengeOrdered By: Mandy Asher on 11-08-2024 AST [Catalytic activity/Vol] 29 U/L <32 [facility] Lipaseon 11-08-2024 Lipase [Catalytic activity/Vol] 52 U/L Normal 13-75 [facility] Comment on above: Order Comment: Order Date: 11/08/24Order Info: 0786-1 - CMPOrder Info: 3040-3 - LIPASEOrder Info: 3016-3 - TSH Result Comment: Amanda valentin note: LIPASE revised reference range effective 22. New Lipase methodology. Expected to produce lower values than the previous assay method. NEW Reference Range: 13 - 75 U/L Performed By: #### L 100.0100, L500.4050 #### [facility] [address] [place], [address] Lipase measurementOrdered By : Mandy Asher on 11-08-2024 Lipase [Catalytic activity/Vol] 52 U/L 13-75 [facility] Comment on above: Please note:LIPASE r evised reference range effective 22. New Lipase methodology. Expected to produce lower values than the previous assay method. NEW Reference Range: 13 - 75 U/L MCV (mean corpuscular volume ) determinationOrdered By: Mandy Asher on 11-08-2024 MCV (RBC) [Entitic vol] 102.7 fL High 81-99 [facility] Mean corpuscular hemoglobin (MCH) determinationOrdered By: Mandy Asher on 11-08-2024 MCH (RBC) [Entitic mass] 33.7 pg High 27.0-32.0 [facility] Mean corpuscular hemoglobin concentration (MCHC) determinationOrdered By: Mandy Asher on 11-08-2024 MCHC (RBC) [Mass/Vol] 32.9 g/dL 32-36 [facility] Mean platelet volume determi nationOrdered By: Mandy Asher on 11-08-2024 Platelet mean volume (Bld) [Entitic vol] 10.3 fL 6.2-12.0 [facility] Monocyte percentageOrdered B y: Mandy Asher on 11-08-2024 Monocytes/100 WBC (Bld) 7.3 % 0-10 [facility] Neutrophil percentageOrdered By: Mandy Asher on 11-08-2024 Neutrophils/100 WBC (Bld) 69.4 % 47-70 [facility] Nucleated red blood cell per centageOrdered By: Mandy Asher on 11-08-2024 Nucleated RBC/100 WBC (Bld) [Ratio] 0 % 0-5 [facility] Platelet countOrdered By: Houston Asher on 11-08-2024 Platelets (Bld) [#/Vol] 263 10*3/uL 150-450 [facility] Potassium measurement (mass/ volume)Ordered By: Mandy Asher on 11-08-2024 Potassium (Unsp spec) [Mass/Vol] 3.6 mmol/L 3.3-5.1 [facility] RBC Auto (Bld) [#/Vol]Ordere d By: Mandy Asher on 11-08-2024 RBC (Bld) [#/Vol] 4.03 10*6/uL Low 4.2-5.4 [facility] Serum creatinine measurement (mass/volume)Ordered By: Mandy Asher on 11-08-2024 Creatinine [Mass/Vol] 0.82 mg/dL 0.70-1.20 [facility] Serum globulin measurementOr dered By: Mandy Asher on 11-08-2024 Globulin (S) [Mass/Vol] 2.3 g/dL 2.2-4.2 [facility] Serum glucose measurement (m ass/volume)Ordered By: Mandy Asher on 11-08-2024 Glucose [Mass/Vol] 91 mg/dL 70-99 [facility] Serum or plasma alanine sotelo otransferase (ALT) measurementOrdered By: Mandy Asher on 11-08-2024 ALT [Catalytic activity/Vol] 39 U/L High <35 [facility] Serum or plasma albumin hayley urement (mass/volume)Ordered By: Mandy Asher on 11-08-2024 Albumin [Mass/Vol] 4.2 g/dL 3.4-4.8 [facility] Serum or plasma albumin/glob ulin mass ratioOrdered By: Mandy Asher on 11-08-2024 Albumin/Globulin [Mass ratio] 1.8 {ratio} 0.9-2.4 [facility] Serum or plasma alkaline victor manuel sphatase measurementOrdered By: Mandy Asher on 11-08-2024 ALP [Catalytic activity/Vol] 49 U/L 35-104 [facility] Serum or plasma calcium hayley urement (mass/volume)Ordered By: Mandy Asher on 11-08-2024 Calcium [Mass/Vol] 9.4 mg/dL 7.6-11.0 [facility] Serum or plasma urea nitroge n measurement (mass/volume)Ordered By: Mandy Asher on 11-08-2024 Urea nitrogen [Mass/Vol] 24 mg/dL High 4-19 [facility] Sodium levelOrdered By: Mandy Asher on 11-08-2024 Sodium [Moles/Vol] 141 mmol/L 133-145 [facility] TSH DL <= 0.005 mIU/L QnOrde red By: Mandy Asher on 11-08-2024 TSH Qn 0.796 uIU/mL 0.300-4.200 [facility] Thyroid Stim Hormone (TSH)on 11-08-2024 TSH 0.796 uIU/mL Normal 0.300-4.200 [facility] Comment on above: Order Comment: Order Date: 11/08/24Order Info: 0786-1 - CMPOrder Info: 3040-3 - LIPASEOrder Info: 3016-3 - TSH Performed By: #### L 100.0100, L500.4050 #### [facility] Laboratory [address] [place] [address], [address] Total proteinOrdered By: Nohemi Asher on 11-08-2024 Protein [Mass/Vol] 6.5 g/dL 5.9-8.4 [facility] White blood cell (WBC) count Ordered By: Mandy Asher on 11-08-2024 WBC (Bld) [#/Vol] 9.8 10*3/uL 4.4-11.0 [facility] Absolute lymphocyte countOrd ered By: Rosa Dave on 10-22-2024 Lymphocytes Auto (Unsp spec) [#/Vol] 1.82 10*3/uL 0.83-4.51 [facility] Absolute neutrophil countOrd ered By: Rosa Dave on 10-22-2024 Neutrophils (Bld) [#/Vol] 4.2 10*3/uL 2.0-7.7 [facility] Anion gap in Serum or Plasma Ordered By: Rosa Dave on 10-22-2024 Anion gap [Moles/Vol] 10 mmol/L 5-15 [facility] Automated lymphocyte count a s percentage of total leukocytesOrdered By: Rosa Dave on 10-22-2024 Lymphocytes/100 WBC Auto (Unsp spec) 27.1 % - [facility] BUN/creatinine ratioOrdered By: Rosa Dave on 10-22-2024 Urea nitrogen/Creatinine [Mass ratio] 20.3 mg/mg High - [facility] Basophil percentageOrdered B y: Rosa Dave on 10-22-2024 Basophils/100 WBC (Bld) 0.7 % 0-1 [facility] Bilirubin, totalOrdered By: Rosa Dave on 10-22-2024 Bilirubin [Mass/Vol] 0.96 mg/dL 0.00-1.30 [facility] CBC W/Diff, Automatedon 10-04 Absolute Lymph 1.82 X10 3/uL Normal 0.83-4.51 [facility] Comment on above: Performed By: #### L 100.0100, L500.4050 #### [facility] Laboratory [address] [place], [address] Absolute Neut 4.2 X10 3/uL Normal 2.0-7.7 [facility] Comment on above: Performed By: #### L 100.0100, L500.4050 #### [facility] [address] [place], [address] Basophils/100 WBC (Bld) 0.7 % Normal 0-1 [facility] Comment on above: Performed By: #### L 100.0100, L500.4050 #### [facility] [address] [place], [address] Eosinophils/100 WBC (Bld) 1.5 % Normal 0-5 [facility] Comment on above: Performed By: #### L 100.0100, L500.4050 #### [facility] [address] [place], [address] Erythrocyte distribution width (RBC) [Ratio] 12.5 % Normal 11.6-14.6 [facility] Comment on above: Performed By: #### L 100.0100, L500.4050 #### [facility] [address] [place], [address] Hematocrit (Bld) [Volume fraction] 43.9 % Normal 37-47 [facility] Comment on above: Performed By: #### L 100.0100, L500.4050 #### [facility] [address] [place], [address] Hemoglobin (Bld) [Mass/Vol] 14.5 g/dL Normal 12.0-15.0 [facility] Comment on above: Performed By: #### L 100.0100, L500.4050 #### [facility] [address] [place], [address] IG% 0.300 Normal 0.0-0.9 [facility] Comment on above: Result Comment: IG% - Immature Granulocytes (promyelocytes, myelocytes and metamyelocytes) > 1% indicates that a LEFT SHIFT is Present. Performed By: #### L 100.0100, L500.4050 #### [facility] [address] [place], [address] Lymphocytes/100 WBC (Bld) 27.1 % Normal 19-41 [facility] Comment on above: Performed By: #### L 100.0100, L500.4050 #### [facility] [address] [place], [address] MCH (RBC) [Entitic mass] 34.1 pg High 27.0-32.0 [facility] Comment on above: Performed By: #### L 100.0100, L500.4050 #### [facility] [address] [place], [address] MCHC (RBC) [Mass/Vol] 33.0 g/dL Normal 32-36 [facility] Comment on above: Performed By: #### L 100.0100, L500.4050 #### [facility] [address] [place], [address] MCV (RBC) [Entitic vol] 103.3 fL High 81-99 [facility] Comment on above: Performed By: #### L 100.0100, L500.4050 #### [facility] [address] [place], [address] Monocytes/100 WBC (Bld) 8.5 % Normal 0-10 [facility] Comment on above: Performed By: #### L 100.0100, L500.4050 #### [facility] [address] [place], [address] Neutrophils/100 WBC (Bld) 61.9 % Normal 47-70 [facility] Comment on above: Performed By: #### L 100.0100, L500.4050 #### [facility] [address] [place], [address] Nucleated RBC (Bld) [#/Vol] 0 10*3/uL Normal 0-5 [facility] Comment on above: Performed By: #### L 100.0100, L500.4050 #### [facility] [address] [place], [address] Platelet mean volume (Bld) [Entitic vol] 10.2 fL Normal 6.2-12.0 [facility] Comment on above: Performed By: #### L 100.0100, L500.4050 #### [facility] [address] [place], [address] Platelets (Bld) [#/Vol] 280 10*3/uL Normal 150-450 [facility] Comment on above: Performed By: #### L 100.0100, L500.4050 #### [facility] [address] [place], [address] RBC (Bld) [#/Vol] 4.25 10*6/uL Normal 4.2-5.4 [facility] Comment on above: Performed By: #### L 100.0100, L500.4050 #### [facility] [address] [place], [address] RDW SD 47.3 fl High 35.1-43.9 [facility] Comment on above: Performed By: #### L 100.0100, L500.4050 #### [facility] [address] [place], [address] WBC (Bld) [#/Vol] 6.7 10*3/uL Normal 4.4-11.0 [facility] Comment on above: Performed By: #### L 100.0100, L500.4050 #### [facility] [address] [place], [address] Carbon dioxide, total [Moles /volume] in Central venous bloodOrdered By: Rosa Dave on 10-22-2024 CO2 [Moles/Vol] 26.5 mmol/L 21.0-32.0 [facility] Chloride assayOrdered By: Magalys Dave on 10-22-2024 Chloride [Moles/Vol] 105 mmol/L 98-108 [facility] Comprehensive Metabolic Prof ilon 10-22-2024 Albumin [Mass/Vol] 4.1 g/dL Normal 3.4-4.8 [facility] Comment on above: Performed By: #### L 100.0100, L500.4050 #### [facility] [address] [place], [address] Albumin/Globulin [Mass ratio] 1.6 {ratio} Normal 0.9-2.4 [facility] Comment on above: Performed By: #### L 100.0100, L500.4050 #### [facility] [address] [place], [address] ALK PHOS 55 U/L Normal 35-104 [facility] Comment on above: Performed By: #### L 100.0100, L500.4050 #### [facility] [address] [place], [address] ALT [Catalytic activity/Vol] 37 U/L High <=34 [facility] Comment on above: Performed By: #### L 100.0100, L500.4050 #### [facility] [address] [place], [address] AST [Catalytic activity/Vol] 33 U/L High <=31 [facility] Comment on above: Performed By: #### L 100.0100, L500.4050 #### [facility] [address] [place], [address] Bilirubin [Mass/Vol] 0.96 mg/dL Normal 0.00-1.30 [facility] Comment on above: Performed By: #### L 100.0100, L500.4050 #### [facility] [address] [place], [address] BUN/CRE 20.3 RATIO High 10-20 [facility] Comment on above: Performed By: #### L 100.0100, L500.4050 #### [facility] [address] [place], [address] Calcium [Mass/Vol] 9.2 mg/dL Normal 7.6-11.0 [facility] Comment on above: Performed By: #### L 100.0100, L500.4050 #### [facility] [address] [place], [address] Chloride [Moles/Vol] 105 mmol/L Normal 98-108 [facility] Comment on above: Performed By: #### L 100.0100, L500.4050 #### [facility] [address] [place], [address] CO2 [Moles/Vol] 26.5 mmol/L Normal 21.0-32.0 [facility] Comment on above: Performed By: #### L 100.0100, L500.4050 #### [facility] [address] [place], [address] Creatinine [Mass/Vol] 0.90 mg/dL Normal 0.70-1.20 [facility] Comment on above: Performed By: #### L 100.0100, L500.4050 #### [facility] [address] [place], [address] GAP 10 Normal 5-15 [facility] Comment on above: Performed By: #### L 100.0100, L500.4050 #### [facility] [address] [place], [address] GFR/1.73 sq M.predicted among non-blacks MDRD (S/P/Bld) [Vol rate/Area] 69 mL/min/{1.73_m2} Normal >60 [facility] Comment on above: Result Comment: mL/m in/1.73m2 CKD-EPI Creatinine Equation (2020) Performed By: #### L 100.0100, L500.4050 #### [facility] [address] [place], [address] Globulin (S) [Mass/Vol] 2.6 g/dL Normal 2.2-4.2 [facility] Comment on above: Performed By: #### L 100.0100, L500.4050 #### [facility] [address] [place], [address] Glucose [Mass/Vol] 71 mg/dL Normal 70-99 [facility] Comment on above: Performed By: #### L 100.0100, L500.4050 #### [facility] [address] [place], [address] Potassium [Moles/Vol] 4.1 mmol/L Normal 3.3-5.1 [facility] Comment on above: Performed By: #### L 100.0100, L500.4050 #### [facility] [address] [place], [address] Sodium [Moles/Vol] 142 mmol/L Normal 133-145 [facility] Comment on above: Performed By: #### L 100.0100, L500.4050 #### [facility] [address] [place], [address] T PROT 6.7 g/dL Normal 5.9-8.4 [facility] Comment on above: Performed By: #### L 100.0100, L500.4050 #### [facility] [address] [place], [address] Urea nitrogen [Mass/Vol] 18 mg/dL Normal 4-19 [facility] Comment on above: Performed By: #### L 100.0100, L500.4050 #### [facility] [address] [place], [address] Eosinophil percentageOrdered By: Rosa Dave on 10-22-2024 Eosinophils/100 WBC (Bld) 1.5 % 0-5 [facility] Erythrocyte distribution wid th ratioOrdered By: Rosa Dave on 10-22-2024 Erythrocyte distribution width (RBC) [Ratio] 12.5 % 11.6-14.6 [facility] Erythrocyte distribution wid th standard deviationOrdered By: Rosa Dave on 10-22-2024 Erythrocyte distribution width (RBC) [Ratio] 47.3 fl High 35.1-43.9 [facility] Glomerular filtration rate ( GFR) estimation/1.73 sq m using serum, plasma, or whole bOrdered By: Rosa Dave on 10-22-2024 GFR/1.73 sq M.predicted among non-blacks MDRD (S/P/Bld) [Vol rate/Area] 69 mL/min/{1.73_m2} >60 [facility] Comment on above: mL/min/1.73m2 CKD-EP I Creatinine Equation (2020) Hematocrit Auto (Bld) [Volum e fraction]Ordered By: Rosa Dave on 10-22-2024 Hematocrit (Bld) [Volume fraction] 43.9 % 37-47 [facility] Hemoglobin measurementOrdere d By: Rosa Dave on 10-22-2024 Hemoglobin (Bld) [Mass/Vol] 14.5 g/dL 12.0-15.0 [facility] Immature granulocytes/100 WB C Auto (Bld)Ordered By: Rosa Dave on 10-22-2024 Immature granulocytes/100 WBC (Bld) 0.300 % 0.0-0.9 [facility] Comment on above: IG% - Immature Granu locytes (promyelocytes, myelocytes and metamyelocytes) > 1% indicates that a LEFT SHIFT is Present. Laboratory - Chemistry and C hemistry - challengeOrdered By: Rosa Dave on 10-22-2024 AST [Catalytic activity/Vol] 33 U/L High <32 [facility] MCV (mean corpuscular volume ) determinationOrdered By: Rosa Dave on 10-22-2024 MCV (RBC) [Entitic vol] 103.3 fL High 81-99 [facility] Mean corpuscular hemoglobin (MCH) determinationOrdered By: Rosa Dave 10-22-2024 MCH (RBC) [Entitic mass] 34.1 pg High 27.0-32.0 [facility] Mean corpuscular hemoglobin concentration (MCHC) determinationOrdered By: Rosa Dave on 10-22-2024 MCHC (RBC) [Mass/Vol] 33.0 g/dL 32-36 [facility] Mean platelet volume determi nationOrdered By: Rosa Dave on 10-22-2024 Platelet mean volume (Bld) [Entitic vol] 10.2 fL 6.2-12.0 [facility] Monocyte percentageOrdered B y: Rosa Dave on 10-22-2024 Monocytes/100 WBC (Bld) 8.5 % 0-10 [facility] Neutrophil percentageOrdered By: Rosa Dave on 10-22-2024 Neutrophils/100 WBC (Bld) 61.9 % 47-70 [facility] Nucleated red blood cell per centageOrdered By: Rosa Dave on 10-22-2024 Nucleated RBC/100 WBC (Bld) [Ratio] 0 % 0-5 [facility] Platelet countOrdered By: Magalys Dave on 10-22-2024 Platelets (Bld) [#/Vol] 280 10*3/uL 150-450 [facility] Potassium measurement (mass/ volume)Ordered By: Rosa Dave on 10-22-2024 Potassium (Unsp spec) [Mass/Vol] 4.1 mmol/L 3.3-5.1 [facility] RBC Auto (Bld) [#/Vol]Ordere d By: Rosa Dave on 10-22-2024 RBC (Bld) [#/Vol] 4.25 10*6/uL 4.2-5.4 [facility] Serum creatinine measurement (mass/volume)Ordered By: Rosa Dave on 10-22-2024 Creatinine [Mass/Vol] 0.90 mg/dL 0.70-1.20 [facility] Serum globulin measurementOr dered By: Rosa Dave on 10-22-2024 Globulin (S) [Mass/Vol] 2.6 g/dL 2.2-4.2 [facility] Serum glucose measurement (m ass/volume)Ordered By: Rosa Dave on 10-22-2024 Glucose [Mass/Vol] 71 mg/dL 70-99 [facility] Serum or plasma alanine sotelo otransferase (ALT) measurementOrdered By: Rosa Dave on 10-22-2024 ALT [Catalytic activity/Vol] 37 U/L High <35 [facility] Serum or plasma albumin hayley urement (mass/volume)Ordered By: Rosa Dave on 10-22-2024 Albumin [Mass/Vol] 4.1 g/dL 3.4-4.8 [facility] Serum or plasma albumin/glob ulin mass ratioOrdered By: Rosa Dave on 10-22-2024 Albumin/Globulin [Mass ratio] 1.6 {ratio} 0.9-2.4 [facility] Serum or plasma alkaline victor manuel sphatase measurementOrdered By: Rosa Dave on 10-22-2024 ALP [Catalytic activity/Vol] 55 U/L 35-104 [facility] Serum or plasma calcium hayley urement (mass/volume)Ordered By: Rosa Dave on 10-22-2024 Calcium [Mass/Vol] 9.2 mg/dL 7.6-11.0 [facility] Serum or plasma urea nitroge n measurement (mass/volume)Ordered By: Rosa Dave on 10-22-2024 Urea nitrogen [Mass/Vol] 18 mg/dL 4-19 [facility] Sodium levelOrdered By: Samantha Dave on 10-22-2024 Sodium [Moles/Vol] 142 mmol/L 133-145 [facility] Total proteinOrdered By: Thom Dave on 10-22-2024 Protein [Mass/Vol] 6.7 g/dL 5.9-8.4 [facility] White blood cell (WBC) count Ordered By: Rosa Dave on 10-22-2024 WBC (Bld) [#/Vol] 6.7 10*3/uL 4.4-11.0 [facility] Breast imaging reportOrdered By: Pilar Yeboah on 09-24-2024 Study report [facility] Imaging Services [address] [place], [place] [address] SCRN MAMM (CAD)W/LEON BILAT MR#: [id number] Acct: [id number] Name: YENNY DING Rep #: [id number] : 1955 F 69 From: Kalpana Yeboah MD PCP: Dr. Mandy Asher MD Status: REG CLI Study:SCRN MAMM (CAD)W/LEON BILAT Date of Exa m: 09/24/24 Exam# [id number] Ordering Dr: Houston Asher MD EXAM: SCRN MAMM (CAD)W/LEON BILAT 09/24/2024 CLINICAL HISTORY: F, Age 69 y/o , BIANNUAL SCREEN TECHNIQUE: Bilateral screening digital breast tomosynthesis with 2D and 3D images. Computeraided detection. COMPARISON: Prior exam(s) dated 12/06/2021 and 12/12/2021. FINDINGS: TISSUE DENSITY: The breast tissue is heterogenously dense, which may obscure small masses. The mammogram demonstrates that the patient has dense breasts. Supplemental screening with whole breast ultrasound or MRI may be considered for further evaluation. Bilateral Breast Mammographic Findings: There are a few circumscribed masses scattered throughout the right breast, on the prior ultrasound of 12/12/2021 these represented benign cysts. Otherwise, there are no suspicious masses, grouped calcifications or architectural distortions in either breast. BI/SCRN MAMM (CAD)W/LEON BILAT IMPRESSION: Right Breast: BIRADS 2 BENIGN FINDING. Left Breast: BIRADS 1 NEGATIVE. OVERALL FINAL ASSESSMENT: BIRADS 2 BENIGN FINDING. RECOMMENDATION: Routine annual follow-up in 1 Year A letter with findings and recommendations will be mailed to the patient. Reading Location: [facility] CC: Dr. 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 Mandy Asher MD Status: REG CLI Study: SCRN MAMM (CAD)W/LEON BILAT Date of Exam: 09/03 07/27 Exam# [id number] Ordering Dr: Mandy Ahser MD EXAM: SCRN MAMM (CAD)W/LEON BILAT 09/24/2024 CLINICAL HISTORY: F, Age 69 y/o , BIANNUAL SCREEN TECHNIQUE: Bilateral screening digital breast tomosynthesis with 2D and 3D images. Computer aided detection. COMPARISON: Prior exam(s) dated 12/06/2021 and 12/12/2021. FINDINGS: TISSUE DENSITY: The breast tissue is heterogenously dense, which may obscure small masses. The mammogram demonstrates that the patient has dense breasts. Supplemental screening with whole breast ultrasound or MRI may be considered for further evaluation. Bilateral Breast Mammographic Findings: There are a few circumscribed masses scattered throughout the right breast, on the prior ultrasound of 12/12/2021 these represented benign cysts. Otherwise, there are no suspicious masses, grouped calcifications or architectural distortions in either breast. BI/SCRN MAMM (CAD)W/LEON BILAT IMPRESSION: Right Breast: BIRADS 2 BENIGN FINDING. Left Breast: BIRADS 1 NEGATIVE. OVERALL FINAL ASSESSMENT: BIRADS 2 BENIGN FINDING. RECOMMENDATION: Routine annual follow-up in 1 Year A letter with findings and recommendations will be mailed to the patient. Reading Location: [facility] CC: Dr. Mandy Asher MD Metal Furniture Repairer: Signed Normal [facility] CT CHEST WO IVCONon 09-17-19 CT CHEST WO IVCON * * *Final Report* * * DATE OF EXAM: Sep 16 2024 11:21AM [facility] 0541 - CT CHEST WO IVCON / PROCEDURE REASON: multiple diagnoses * * * * Physician Interpretation * * * * EXAMINATION: CHEST CT WITHOUT CONTRAST CLINICAL HISTORY: Lung nodules. Technique: Spiral CT acquisition of the chest from the thoracic inlet to the upper abdomen without contrast. MQ: [id number] CT Radiation dose: Integrated Dose-length product (DLP) for this visit = 182 mGy*cm CT Dose Reduction Employed: Automated exposure control(AEC) and iterative recon Comparison: CT chest on 02/27/2024 RESULT: Limitations: None. Lines, tubes, and devices: None. Lung parenchyma and airways: The central airways are patent. There is a stable 1.2 cm groundglass density in the right upper lobe, series 6 image 62. A few stable triangular densities noted in the right lower lobe, series 6 image 151. No new nodules identified. Mild emphysema is again demonstrated. There is stable biapical scarring and subpleural opacities. No mass lesion seen. Pleural space: No pleural effusion or pneumothorax. No pleural thickening. Lower neck, lymph nodes, and mediastinum: The imaged thyroid gland is normal. No lymphadenopathy in the supraclavicular, axillary, mediastinal, or hilar regions. Heart, pericardium, and thoracic vessels: The thoracic aorta and main pulmonary artery are normal in caliber. The cardiac chambers are normal in size. Punctate coronary artery atherosclerotic calcifications are noted, although the study is not optimized for coronary assessment. No pericardial effusion or thickening. Bones and soft tissues: No destructive bone lesion. Chest wall is unremarkable. Upper abdomen: No abnormality in the imaged upper abdomen. Localizer images: No additional findings. IMPRESSION: Stable 1.2 cm groundglass density in the right upper lobe. No new nodules seen. Mild emphysema. Metal Furniture Repairer: [facility]ITAL[facility] Transcribe Date/Time: Sep 23 2024 1:52P Dictated by : ALLIE PAN MD This examination was interpreted and the report reviewed and electronically signed by: ALLIE PAN MD on Sep 23 2024 2:34PM EST [id number] Normal [facility] Anion gap in Serum or Plasma Ordered By: Rosa Dave on 08-24-2024 Anion gap [Moles/Vol] 11 mmol/L 5-15 [facility] BUN/creatinine ratioOrdered By: Rosa Dave on 08-24-2024 Urea nitrogen/Creatinine [Mass ratio] 30.3 mg/mg High 10-20 [facility] Bilirubin, totalOrdered By: Rosa Dave on 08-24-2024 Bilirubin [Mass/Vol] 0.48 mg/dL 0.00-1.30 [facility] Carbon dioxide, total [Moles /volume] in Central venous bloodOrdered By: Rosa Dave on 08-24-2024 CO2 [Moles/Vol] 25.4 mmol/L 21.0-32.0 [facility] Chloride assayOrdered By: Magalys Dave on 08-24-2024 Chloride [Moles/Vol] 101 mmol/L 98-108 [facility] Comprehensive Metabolic Prof ilon 08-24-2024 Albumin [Mass/Vol] 4.3 g/dL Normal 3.4-4.8 [facility] Comment on above: Performed By: #### L 500.4050 #### [facility] Laboratory [address] [place], [address] Albumin/Globulin [Mass ratio] 1.7 {ratio} Normal 0.9-2.4 [facility] Comment on above: Performed By: #### L 500.4050 #### [facility] [address] [place], [address] ALK PHOS 35 U/L Normal 35-104 [facility] Comment on above: Performed By: #### L 500.4050 #### [facility] [address] [place], [address] ALT [Catalytic activity/Vol] 30 U/L Normal <=34 [facility] Comment on above: Performed By: #### L 500.4050 #### [facility] [address] [place], [address] AST [Catalytic activity/Vol] 30 U/L Normal <=31 [facility] Comment on above: Performed By: #### L 500.4050 #### [facility] [address] [place], [address] Bilirubin [Mass/Vol] 0.48 mg/dL Normal 0.00-1.30 [facility] Comment on above: Performed By: #### L 500.4050 #### [facility] [address] [place], [address] BUN/CRE 30.3 RATIO High 10-20 [facility] Comment on above: Performed By: #### L 500.4050 #### [facility] [address] [place], [address] Calcium [Mass/Vol] 9.8 mg/dL Normal 7.6-11.0 [facility] Comment on above: Performed By: #### L 500.4050 #### [facility] [address] [place], [address] Chloride [Moles/Vol] 101 mmol/L Normal 98-108 [facility] Comment on above: Performed By: #### L 500.4050 #### [facility] [address] [place], [address] CO2 [Moles/Vol] 25.4 mmol/L Normal 21.0-32.0 [facility] Comment on above: Performed By: #### L 500.4050 #### [facility] [address] [place], [address] Creatinine [Mass/Vol] 0.81 mg/dL Normal 0.70-1.20 [facility] Comment on above: Performed By: #### L 500.4050 #### [facility] [address] [place], [address] GAP 11 Normal 5-15 [facility] Comment on above: Performed By: #### L 500.4050 #### [facility] [address] [place], [address] GFR/1.73 sq M.predicted among non-blacks MDRD (S/P/Bld) [Vol rate/Area] 78 mL/min/{1.73_m2} Normal >60 [facility] Comment on above: Result Comment: mL/m in/1.73m2 CKD-EPI Creatinine Equation (2020) Performed By: #### L 500.4050 #### [facility] [address] [place], [address] Globulin (S) [Mass/Vol] 2.5 g/dL Normal 2.2-4.2 [facility] Comment on above: Performed By: #### L 500.4050 #### [facility] [facility] [address] [place], [address] Glucose [Mass/Vol] 91 mg/dL Normal 70-99 [facility] Comment on above: Performed By: #### L [id number] #### [facility] [address] [place], [address] Potassium [Moles/Vol] 4.0 mmol/L Normal 3.3-5.1 [facility] Comment on above: Performed By: #### L [id number] #### [facility] [address] [place], [address] Sodium [Moles/Vol] 138 mmol/L Normal 133-145 [facility] Comment on above: Performed By: #### L [id number] #### [facility] [address] [place], [address] T PROT 6.7 g/dL Normal 5.9-8.4 [facility] Comment on above: Performed By: #### L [id number] #### [facility] [address] [place], [address] Urea nitrogen [Mass/Vol] 25 mg/dL High 4-19 [facility] Comment on above: Performed By: #### L [id number] #### [facility] [address] [place], [address] GFR/1.73 sq M.predicted menhaz g non-blacks MDRD (S/P/Bld) [Vol rate/Area]Ordered By: Rosa Dave on 08-24-2024 Estimated GFR (MDRD) Non-Af Amer 78 >60 [facility] Comment on above: mL/min/1.73m2 CKD-EP I Creatinine Equation (2020) Glomerular filtration rate ( GFR) estimation/1.73 sq m using serum, plasma, or whole bOrdered By: Rosa Dave on 08-24-2024 GFR/1.73 sq M.predicted among non-blacks MDRD (S/P/Bld) [Vol rate/Area] 78 mL/min/{1.73_m2} >60 [facility] Comment on above: mL/min/1.73m2 CKD-EP I Creatinine Equation (2021) Laboratory - Chemistry and C hemistry - challengeOrdered By: Rosa Dave on 08-24-2024 AST [Catalytic activity/Vol] 30 U/L <32 [facility] Potassium (Unsp spec) [Mass/ Vol]Ordered By: Rosa Dave on 08-24-2024 Potassium [Moles/Vol] 4.0 mmol/L 3.3-5.1 [facility] Potassium measurement (mass/ volume)Ordered By: Rosa Dave on 08-24-2024 Potassium (Unsp spec) [Mass/Vol] 4.0 mmol/L 3.3-5.1 [facility] Serum creatinine measurement (mass/volume)Ordered By: Rosa Dave on 08-24-2024 Creatinine [Mass/Vol] 0.81 mg/dL 0.70-1.20 [facility] Serum globulin measurementOr dered By: Rosa Dave on 08-24-2024 Globulin (S) [Mass/Vol] 2.5 g/dL 2.2-4.2 [facility] Serum glucose measurement (m ass/volume)Ordered By: Rosa Dave 08-24-2024 Glucose [Mass/Vol] 91 mg/dL 70-99 [facility] Serum or plasma alanine sotelo otransferase (ALT) measurementOrdered By: Rosa Dave 08-24-2024 ALT [Catalytic activity/Vol] 30 U/L <35 [facility] Serum or plasma albumin hayley urement (mass/volume)Ordered By: Rosa Dave 08-24-2024 Albumin [Mass/Vol] 4.3 g/dL 3.4-4.8 [facility] Serum or plasma albumin/glob ulin mass ratioOrdered By: Rosa Dave 08-24-2024 Albumin/Globulin [Mass ratio] 1.7 {ratio} 0.9-2.4 [facility] Serum or plasma alkaline victor manuel sphatase measurementOrdered By: Rosa Dave 08-24-2024 ALP [Catalytic activity/Vol] 35 U/L 35-104 [facility] Serum or plasma calcium hayley urement (mass/volume)Ordered By: Rosa Dave 08-24-2024 Calcium [Mass/Vol] 9.8 mg/dL 7.6-11.0 [facility] Serum or plasma urea nitroge n measurement (mass/volume)Ordered By: Rosa Dave on 08-24-2024 Urea nitrogen [Mass/Vol] 25 mg/dL High 4-19 [facility] Sodium levelOrdered By: Samantha Dave on 08-24-2024 Sodium [Moles/Vol] 138 mmol/L 133-145 [facility] Total proteinOrdered By: Thom Dave on 08-24-2024 Protein [Mass/Vol] 6.7 g/dL 5.9-8.4 [facility] Liveron 08-11-2024 Liver [facility] [address] [place], [place] [address] Liver MR#: [id number] Acct: [id number] Name: YENNY DING Rep #: [id number] : 1955 F 69 From: Gautam Reeves MD PCP: Dr. Mandy Asher MD Status: REG CLI Study: Liver Date of Exam: 08/11/24 Exam# [id number] Ordering Dr: Rosa Dave MD PROCEDURE: LIVER (USLI), 08/11/2024 REASON FOR EXAM: ELEVATED LI ENZYMES COMPARISON: None FINDINGS: Examination considerably limited due to shadowing bowel gas. Liver: Grossly unremarkable. 12.3 cm in length. Gallbladder: No visualized stones, sludge, wall thickening or pericholecystic fluid. Reportedly, sonographic Pinto's was negative. Biliary tree: Unremarkable. CBD measures 5 mm. Pancreas: Partially obscured by shadowing bowel gas, grossly unremarkable as visualized. Right kidney: Not well seen due to shadowing bowel gas. Other: No visualized free fluid. US/Liver IMPRESSION: 1. Grossly unremarkable appearance of the hepatic parenchyma. No biliary dilatation. 2. Additional description as above. Reading Location: [facility] CC: Dr. Mandy Asher MD; Dr. Rosa Dave MD [employer] Furn[employer]r: Signed Normal [facility] Absolute lymphocyte countOrd ered By: Rosa Dave on 08-02-2024 Lymphocytes Auto (Unsp spec) [#/Vol] 1.45 10*3/uL 0.83-4.51 [facility] Absolute neutrophil countOrd ered By: Rosa Dave on 08-02-2024 Neutrophils (Bld) [#/Vol] 5.4 10*3/uL 2.0-7.7 [facility] Anion gap in Serum or Plasma Ordered By: Rosa Dave on 08-02-2024 Anion gap [Moles/Vol] 15 mmol/L 5- [facility] Automated lymphocyte count a s percentage of total leukocytesOrdered By: Rosanicole Dave on 08-02-2024 Lymphocytes/100 WBC Auto (Unsp spec) 19.2 % - [facility] BUN/creatinine ratioOrdered By: [facility] Jolie on 08-02-2024 Urea nitrogen/Creatinine [Mass ratio] 19.2 mg/mg - [facility] Basophil percentageOrdered B y: Rosa Dave on 08-02-2024 Basophils/100 WBC (Bld) 1.1 % High 0-1 [facility] Bilirubin, totalOrdered By: Rosanicole Dave on 08-02-2024 Bilirubin [Mass/Vol] 0.75 mg/dL 0.00-1.30 [facility] CBC W/Diff, Automatedon 07-05 Absolute Lymph 1.45 X10 3/uL Normal 0.83-4.51 [facility] Comment on above: Performed By: #### [id number], L100.0100 #### [facility] [address] [facility] [place], [address] Absolute Neut 5.4 X10 3/uL Normal 2.0-7.7 [facility] Comment on above: Performed By: #### L [id number], L100.0100 #### [facility] [address] [place], [address] Basophils/100 WBC (Bld) 1.1 % High 0-1 [facility] Comment on above: Performed By: #### L [id number], L100.0100 #### [facility] [address] [place], [address] Eosinophils/100 WBC (Bld) 0.5 % Normal 0-5 [facility] Comment on above: Performed By: #### L [id number], L100.0100 #### [facility] [address] [place], [address] Erythrocyte distribution width (RBC) [Ratio] 13.2 % Normal 11.6-14.6 [facility] Comment on above: Performed By: #### L [id number], L100.0100 #### [facility] [address] [place], [address] Hematocrit (Bld) [Volume fraction] 41.3 % Normal 37-47 [facility] Comment on above: Performed By: #### L [id number], L100.0100 #### [facility] [address] [place], [address] Hemoglobin (Bld) [Mass/Vol] 13.6 g/dL Normal 12.0-15.0 [facility] Comment on above: Performed By: #### L [id number], L100.0100 #### [facility] [address] [place], [address] IG% 0.400 Normal 0.0-0.9 [facility] Comment on above: Result Comment: IG% - Immature Granulocytes (promyelocytes, myelocytes and metamyelocytes) > 1% indicates that a LEFT SHIFT is Present. Performed By: #### L [id number], L100.0100 #### [facility] [address] [place], [address] Lymphocytes/100 WBC (Bld) 19.2 % Normal 19-41 [facility] Comment on above: Performed By: #### L [id number], L100.0100 #### [facility] [address] [place], [address] MCH (RBC) [Entitic mass] 36.4 pg High 27.0-32.0 [facility] Comment on above: Performed By: #### L [id number], L100.0100 #### [facility] [address] [place], [address] MCHC (RBC) [Mass/Vol] 32.9 g/dL Normal 32-36 [facility] Comment on above: Performed By: #### L [id number], L100.0100 #### [facility] [address] [place], [address] MCV (RBC) [Entitic vol] 110.4 fL High 81-99 [facility] Comment on above: Performed By: #### L [id number], L100.0100 #### [facility] [address] [place], [address] Monocytes/100 WBC (Bld) 7.4 % Normal 0-10 [facility] Comment on above: Performed By: #### L [id number], L100.0100 #### [facility] [address] [place], [address] Neutrophils/100 WBC (Bld) 71.4 % High 47-70 [facility] Comment on above: Performed By: #### L [id number], L100.0100 #### [facility] [address] [place], [address] Nucleated RBC (Bld) [#/Vol] 0 10*3/uL Normal 0-5 [facility] Comment on above: Performed By: #### L [id number], L100.0100 #### [facility] [address] [place], [address] Platelet mean volume (Bld) [Entitic vol] 9.2 fL Normal 6.2-12.0 [facility] Comment on above: Performed By: #### L [id number], L100.0100 #### [facility] [address] [place], [address] Platelets (Bld) [#/Vol] 344 10*3/uL Normal 150-450 [facility] Comment on above: Performed By: #### L [id number], L100.0100 #### [facility] [address] [place], [address] RBC (Bld) [#/Vol] 3.74 10*6/uL Low 4.2-5.4 [facility] Comment on above: Performed By: #### L [id number], L100.0100 #### [facility] [address] [place], [address] RDW SD 53.7 fl High 35.1-43.9 [facility] Comment on above: Performed By: #### L [id number], L100.0100 #### [facility] [address] [place], [address] WBC (Bld) [#/Vol] 7.6 10*3/uL Normal 4.4-11.0 [facility] Comment on above: Performed By: #### L [id number], L100.0100 #### [facility] [address] [place], [address] Carbon dioxide, total [Moles /volume] in Central venous bloodOrdered By: Rosa Dave on 08-02-2024 CO2 [Moles/Vol] 21.3 mmol/L 21.0-32.0 [facility] Chloride assayOrdered By: Magalys Dave on 08-02-2024 Chloride [Moles/Vol] 105 mmol/L 98-108 [facility] Comprehensive Metabolic Prof ilon 08-02-2024 Albumin [Mass/Vol] 4.6 g/dL Normal 3.4-4.8 [facility] Comment on above: Performed By: #### L 500.4050, L100.0100 #### [facility] [address] [place], [address] Albumin/Globulin [Mass ratio] 1.9 {ratio} Normal 0.9-2.4 [facility] Comment on above: Performed By: #### L [id number], L100.0100 #### [facility] [address] [place], [address] ALK PHOS 41 U/L Normal 35-104 [facility] Comment on above: Performed By: #### L [id number], L100.0100 #### [facility] [address] [place], [address] ALT [Catalytic activity/Vol] 50 U/L High <=34 [facility] Comment on above: Performed By: #### L [id number], L100.0100 #### [facility] [address] [place], [address] AST [Catalytic activity/Vol] 34 U/L High <=31 [facility] Comment on above: Performed By: #### L [id number], L100.0100 #### [facility] [address] [place], [address] Bilirubin [Mass/Vol] 0.75 mg/dL Normal 0.00-1.30 [facility] Comment on above: Performed By: #### L [id number], L100.0100 #### [facility] [address] [place], [address] BUN/CRE 19.2 RATIO Normal 10-20 [facility] Comment on above: Performed By: #### L [id number], L100.0100 #### [facility] [address] [place], [address] Calcium [Mass/Vol] 10.4 mg/dL Normal 7.6-11.0 [facility] Comment on above: Performed By: #### L [id number], L100.0100 #### [facility] [address] [place], [address] Chloride [Moles/Vol] 105 mmol/L Normal 98-108 [facility] Comment on above: Performed By: #### L [id number], L100.0100 #### [facility] [address] [place], [address] CO2 [Moles/Vol] 21.3 mmol/L Normal 21.0-32.0 [facility] Comment on above: Performed By: #### L [id number], L100.0100 #### [facility] [address] [place], [address] Creatinine [Mass/Vol] 0.97 mg/dL Normal 0.70-1.20 [facility] Comment on above: Performed By: #### L [id number], L100.0100 #### [facility] [address] [place], [address] GAP 15 Normal 5-15 [facility] Comment on above: Performed By: #### L [id number], L100.0100 #### [facility] [address] [place], [address] GFR/1.73 sq M.predicted among non-blacks MDRD (S/P/Bld) [Vol rate/Area] 63 mL/min/{1.73_m2} Normal >60 [facility] Comment on above: Result Comment: mL/m in/1.73m2 CKD-EPI Creatinine Equation (2020) Performed By: #### L [id number], L100.0100 #### [facility] [address] [place], [address] Globulin (S) [Mass/Vol] 2.4 g/dL Normal 2.2-4.2 [facility] Comment on above: Performed By: #### L [id number], L100.0100 #### [facility] [address] [place], [address] Glucose [Mass/Vol] 94 mg/dL Normal 70-99 [facility] Comment on above: Performed By: #### L [id number], L100.0100 #### [facility] [address] [place], [address] Potassium [Moles/Vol] 3.7 mmol/L Normal 3.3-5.1 [facility] Comment on above: Performed By: #### L [id number], L100.0100 #### [facility] [address] [place], [address] Sodium [Moles/Vol] 141 mmol/L Normal 133-145 [facility] Comment on above: Performed By: #### L [id number], L100.0100 #### [facility] [address] [place], [address] T PROT 7.0 g/dL Normal 5.9-8.4 [facility] Comment on above: Performed By: #### L [id number], L100.0100 #### [facility] [address] [place], [address] Urea nitrogen [Mass/Vol] 19 mg/dL Normal 4-19 [facility] Comment on above: Performed By: #### L [id number], L100.0100 #### [facility] [address] [place], [address] Eosinophil percentageOrdered By: Rosa Dave on 08-02-2024 Eosinophils/100 WBC (Bld) 0.5 % 0-5 [facility] Erythrocyte distribution wid th (RBC) [Ratio]Ordered By: Rosa Dave on 08-02-2024 Erythrocyte distribution width (RBC) [Entitic vol] 53.7 fL High 35.1-43.9 [facility] Erythrocyte distribution wid th ratioOrdered By: Rosa Dave on 08-02-2024 Erythrocyte distribution width (RBC) [Ratio] 13.2 % 11.6-14.6 [facility] Erythrocyte distribution wid th standard deviationOrdered By: Rosa Dave on 08-02-2024 Erythrocyte distribution width (RBC) [Ratio] 53.7 fl High 35.1-43.9 [facility] GFR/1.73 sq M.predicted mehnaz g non-blacks MDRD (S/P/Bld) [Vol rate/Area]Ordered By: Rosa Dave on 08-02-2024 Estimated GFR (MDRD) Non-Af Amer 63 >60 [facility] Comment on above: mL/min/1.73m2 CKD-EP I Creatinine Equation (2020) Glomerular filtration rate ( GFR) estimation/1.73 sq m using serum, plasma, or whole bOrdered By: Rosa Dave on 08-02-2024 GFR/1.73 sq M.predicted among non-blacks MDRD (S/P/Bld) [Vol rate/Area] 63 mL/min/{1.73_m2} >60 [facility] Comment on above: mL/min/1.73m2 CKD-EP I Creatinine Equation (2020) Hematocrit Auto (Bld) [Volum e fraction]Ordered By: Rosa Dave on 08-02-2024 Hematocrit (Bld) [Volume fraction] 41.3 % 37-47 [facility] Hemoglobin measurementOrdere d By: Rosa Dave on 08-02-2024 Hemoglobin (Bld) [Mass/Vol] 13.6 g/dL 12.0-15.0 [facility] Immature granulocytes/100 WB C Auto (Bld)Ordered By: Rosa Dave on 08-02-2024 Immature granulocytes/100 WBC (Bld) 0.400 % 0.0-0.9 [facility] Comment on above: IG% - Immature Granu locytes (promyelocytes, myelocytes and metamyelocytes) > 1% indicates that a LEFT SHIFT is Present. Laboratory - Chemistry and C hemistry - challengeOrdered By: Rosa Dave on 08-02-2024 AST [Catalytic activity/Vol] 34 U/L High <32 [facility] Lymphocytes Auto (Unsp spec) [#/Vol]Ordered By: Rosa Dave on 08-02-2024 Lymphocytes (Bld) [#/Vol] 1.45 10*3/uL 0.83-4.51 [facility] Lymphocytes/100 WBC Auto (Un sp spec)Ordered By: Rosa Dave on 08-02-2024 Lymphocytes/100 WBC (Bld) 19.2 % 19-41 [facility] MCV (mean corpuscular volume ) determinationOrdered By: Rosa Dave on 08-02-2024 MCV (RBC) [Entitic vol] 110.4 fL High 81-99 [facility] Mean corpuscular hemoglobin (MCH) determinationOrdered By: Rosa Dave on 08-02-2024 MCH (RBC) [Entitic mass] 36.4 pg High 27.0-32.0 [facility] Mean corpuscular hemoglobin concentration (MCHC) determinationOrdered By: Rosa Dave on 08-02-2024 MCHC (RBC) [Mass/Vol] 32.9 g/dL 32-36 [facility] Mean platelet volume determi nationOrdered By: Rosa Dave on 08-02-2024 Platelet mean volume (Bld) [Entitic vol] 9.2 fL 6.2-12.0 [facility] Monocyte percentageOrdered B y: Rosa Dave on 08-02-2024 Monocytes/100 WBC (Bld) 7.4 % 0-10 [facility] Neutrophil percentageOrdered By: Rosa Dave on 08-02-2024 Neutrophils/100 WBC (Bld) 71.4 % High 47-70 [facility] Nucleated red blood cell per centageOrdered By: Rosa Dave on 08-02-2024 Nucleated RBC/100 WBC (Bld) [Ratio] 0 % 0-5 [facility] Platelet countOrdered By: Magalys Dave on 08-02-2024 Platelets (Bld) [#/Vol] 344 10*3/uL 150-450 [facility] Potassium (Unsp spec) [Mass/ Vol]Ordered By: Rosa Dave on 08-02-2024 Potassium [Moles/Vol] 3.7 mmol/L 3.3-5.1 [facility] Potassium measurement (mass/ volume)Ordered By: Rosa Dave on 08-02-2024 Potassium (Unsp spec) [Mass/Vol] 3.7 mmol/L 3.3-5.1 [facility] RBC Auto (Bld) [#/Vol]Ordere d By: Rosa Dave on 08-02-2024 RBC (Bld) [#/Vol] 3.74 10*6/uL Low 4.2-5.4 [facility] Serum creatinine measurement (mass/volume)Ordered By: Rosa Dave on 08-02-2024 Creatinine [Mass/Vol] 0.97 mg/dL 0.70-1.20 [facility] Serum globulin measurementOr dered By: Rosa Dave on 08-02-2024 Globulin (S) [Mass/Vol] 2.4 g/dL 2.2-4.2 [facility] Serum glucose measurement (m ass/volume)Ordered By: Rosa Dave on 08-02-2024 Glucose [Mass/Vol] 94 mg/dL 70-99 [facility] Serum or plasma alanine sotelo otransferase (ALT) measurementOrdered By: Rosa Dave on 08-02-2024 ALT [Catalytic activity/Vol] 50 U/L High <35 [facility] Serum or plasma albumin hayley urement (mass/volume)Ordered By: Rosa Dave on 08-02-2024 Albumin [Mass/Vol] 4.6 g/dL 3.4-4.8 [facility] Serum or plasma albumin/glob ulin mass ratioOrdered By: Rosa Dave on 08-02-2024 Albumin/Globulin [Mass ratio] 1.9 {ratio} 0.9-2.4 [facility] Serum or plasma alkaline victor manuel sphatase measurementOrdered By: Rosa Dave on 08-02-2024 ALP [Catalytic activity/Vol] 41 U/L 35-104 [facility] Serum or plasma calcium hayley urement (mass/volume)Ordered By: Rosa Dave on 08-02-2024 Calcium [Mass/Vol] 10.4 mg/dL 7.6-11.0 [facility] Serum or plasma urea nitroge n measurement (mass/volume)Ordered By: Rosa Dave on 08-02-2024 Urea nitrogen [Mass/Vol] 19 mg/dL 4-19 [facility] Sodium levelOrdered By: Samantha Dave on 08-02-2024 Sodium [Moles/Vol] 141 mmol/L 133-145 [facility] Total proteinOrdered By: Thom Dave on 08-02-2024 Protein [Mass/Vol] 7.0 g/dL 5.9-8.4 [facility] White blood cell (WBC) count Ordered By: Rosa Dave on 08-02-2024 WBC (Bld) [#/Vol] 7.6 10*3/uL 4.4-11.0 [facility] Orthopedic Visit Reporton Orthopedic Visit Report [facility] [address] [place] [address] [address] [place] [address] OFFICE VISIT Date of Service: 07/22/24 MR#: [id number] Acct: [id number] Name: YENNY DING Rep #: [id number] : 1955 Provider: MAGALYS Jo Age/Sex: 69/F Location: [facility] [place] Status: Signed Intake Vital Signs 04/15/22 10:28 07/22/24 13:29 Height 5 ft 4 in 5 ft 4 in Weight: 133 lb 4 oz BMI 22.8 Intake Visit Reasons: CERVICAL SPINE Chief Complaint: Cervical Spine Pain Accompanied by: Self Is patient in pain?: Yes Pain scale (1-10): 1 Allergies bacitracin Adverse Reaction (Verified 07/22/24 13:30) Itching chlorpheniramine (From Dristan Cold) Adverse Reaction (Verified 07/22/24 13:30) Other loratadine (From Claritin-D) Adverse Reaction (Verified 07/22/24 13:30) Other morphine Adverse Reaction (Verified 07/22/24 13:30) Nausea phenylephrine (From Dristan Cold) Adverse Reaction (Verified 07/22/24 13:30) Other procaine (From novacain) Adverse Reaction (Verified 07/22/24 13:30) Other pseudoephedrine (From Claritin-D) Adverse Reaction (Verified 07/22/24 13:30) Other tramadol Adverse Reaction (Verified 07/22/24 13:30) Vomiting Medications ???Medication ???Instructions ???Recorded ???Confirmed ???Type valacyclovir 500 mg tablet 500 mg PO DAILY prophylaxis 07/22/24 History baclofen 20 mg tablet 10 - 20 mg PO QHS cramping 8 07/22/24 History oxycodone 5 mg tablet 5 mg PO Q8H PRN pain 05/25/1707/04 History potassium citrate 5 mEq (540 mg) 10 meq PO BID supplement 05/25/17 07/22/24 History tablet,extended release ipratropium 20 mcg-albuterol 100 2 puff inhalation Q6H PRN Sob /Or 05/01/18 07/22/24 History mcg/actuation mist for inhalation Wheezing (Combivent Respimat) magnesium 200 mg tablet 400 mg PO DAILY supplement 8 07/22/24 History esomeprazole magnesium 20 mg 20 mg PO DAILY GERD 04/06/1907/22 History capsule,delayed release duloxetine 60 mg capsule,delayed 60 mg PO DAILY depression 04/07/19 07/22/24 History release horse chestnut 300 mg capsule 300 mg PO DAILY 12/26/20 07/22/24 History cholecalciferol (vitamin D3) 50 50 mcg PO DAILY 03/19/21 07/22/24 History mcg (2,000 unit) capsule flaxseed oil 1,000 mg capsule 1,000 mg PO DAILY 03/19/21 5 History cyclosporine 0.05 % eye drops in a 1 drp EACH EYE BID dry eyes 11/0307/22/24 History dropperette denosumab 60 mg/mL subcutaneous 60 mg subcut .COMPLEX osteoporosis 11/22/21 07/22/24 History syringe aspirin 650 mg tablet,delayed 650 mg PO TID 01/08/22 07/22/24 Hi story release albuterol sulfate 90 mcg/actuation 2 puff inhalation Q6H PRN PRN So b 03/21/22 07/22/24 Rx aerosol inhaler /Or Wheezing #3 device azithromycin 250 mg tablet 250 mg PO QMWF #40 tabs 08/23/22 0 07/22/24 Rx ipratropium bromide 42 mcg (0.06 2 spray intranasal DAILY sob #3 07/22/24 Rx %) nasal spray BOTTLES B-complex with vitamin C (Super 1 cap PO BID 07/22/24 07/22/24 His tory B/C capsule) biotin 2,500 mcg capsule 2,500 mcg PO QDAY 07/22/24 5 History fluticasone furoate 100 1 inh inhalation DAILY PRN 5 History mcg-vilanterol 25 mcg/dose inhalation powder gabapentin 600 mg tablet,extended 600 mg PO TID back pain 07/22/24 07/22/24 History release 24 hr hydroxychloroquine 200 mg tablet 300 mg PO QDAY 07/22/24 07/22/24 H istory levocetirizine 5 mg tablet 5 mg PO QDAY 07/22/24 07/22/24 His tory lidocaine 5 % topical patch 1 patch topical DAILY PRN 07/22/24 07/22/24 History methotrexate sodium 25 mg/mL 12.5 mg subcut QWEEK 07/22/2407/04 History injection solution misoprostol 100 mcg tablet 100 mcg PO TID 07/22/24 07/22/24 H istory multivitamin 1 tab PO QDAY 07/22/24 07/22/24 Hi story prednisone 10 mg tablet 10 mg PO QDAY PRN 07/22/24 5 History pseudoephedrine HCl 120 mg 120 mg PO Q12H 07/22/24 07/22/24 H istory tablet,extended release (Sudafed 12 Hour) semaglutide 0.25 mg or 0.5 mg (2 0.5 mg subcut QWEEK 07/22/2407/22 History mg/3 mL) subcutaneous pen injector sulfasalazine 500 mg 1,000 mg PO BID 07/22/24 07/22/24 History tablet,delayed release Have you fallen in the past year?: Yes (4 times within the last 12 months) PFSH Medical History Hx of fracture of radius Asthma Arthritis Disease of tonsils and adenoids Scoliosis of thoracolumbar spine Lung nodule Neuropathic pain Nephrolithiasis Lumbar disc disease Surgical History History of surgery on arm H/O colonoscopy Bladder sling clipped History of hernia repair history bladder sling Histor (more content not included)... Normal [facility] Cerv Spine Obl/Flex/Ext Comp on 07-08-2024 Cerv Spine Obl/Flex/Ext Comp [facility] Imaging Services [address] [place], [place] [id number] Cerv Spine Obl/Flex/Ext Comp MR#: [id number] Acct: [id number] Name: YENNY DING Rep #: [id number] : 1955 F 69 From: Aidan chavez MD PCP: Dr. Mandy Asher MD Status: REG CLI Study: Cerv Spine Obl/Flex/Ext Comp Date of Exam: 10/27 Exam# [id number] Ordering Dr: Vinny Lanza MD PROCEDURE: CERV SPINE OBL/FLEX/EXT COMP REASON FOR EXAM: Jaw and neck pain. TECHNIQUE: 6 views of the cervical spine were obtained including flexion-extension and oblique views.. COMPARISON: Comparison is made with prior study dated December 26, 2022. FINDINGS: Normal vertebral body heights. No visible fracture. Mild degree of disc space narrowing at the C5-C6 and C6-C7 levels with anterior spondylosis at the C6-C7 level. No significant neural foraminal stenosis is seen. Facet joint osteoarthritis. Normal alignment. Prevertebral soft tissues are unremarkable. RAD/Cerv Spine Obl/Flex/Ext Comp IMPRESSION: MILD CERVICAL DEGENERATIVE CHANGES. Reading Location: [facility] CC: Dr. Mandy Asher MD; Dr. 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 Mandy Asher MD Status: REG CLI Study: Temporo-Mandibular Jt Dar Date of Exam: Exam# [id number] Ordering Dr: Vinny Lanza MD PROCEDURE: BILATERAL TEMPOROMANDIBULAR JOINTS REASON FOR EXAM: Left temporomandibular joint pain. TECHNIQUE: Four views of the temporomandibular joints. Open and closed mouth views. COMPARISON: None. FINDINGS: No fractures are identified. No dislocations. No osseous lesions involving the mandible. Soft tissues unremarkable. RAD/Temporo-Mandibular Jt Dar IMPRESSION: Unremarkable bilateral temporomandibular joints. Reading Location: [facility] CC: Dr. Mandy Asher MD; Dr. 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 Respiratory [place] Note Patient name: Yenny Ding PCP: Mandy Asher MD CC: Follow-up recent testing HPI: Yenny Ding 69 year old female former 30 pack year smoker, quit in 2004 with PMH significant for h/o alcohol abuse, GERD, scoliosis, RA, asthma COPD, DVT, osteoporosis, mild bronchiectasis, recently seen to establish care. PFTs showed mild obstruction with elevated Dylan. At initial visit, restarted Symbicort, continued bronchopulmonary hygiene, continued TIW azithromycin and updated chest CT to evaluate for possible NTM. Chest CT was pertinent for a 6 mm ground glass nodule, minimal upper lobe mainly paraseptal and minimal bronchiectasis. Recommended [address] she has been compliant with her Symbicort. She denies any chronic cough, mucus production. No wheezing, shortness of breath, nocturnal symptoms. No recent upper respiratory infection, ED visit or hospitalization. DME: [employer] 3 L nocturnal DATA: PFT 02/2024: Review of spirometry shows mild obstruction improvement postbronchodilator Imaging / Diagnostic Studies: DATE OF EXAM: Feb 27 2024 12:03PM [facility] 0541 - CT CHEST WO IVCON / IMPRESSION: 1. Emphysema, with mild diffuse bronchiectasis. Groundglass attenuation nodular opacity is seen within the right upper lobe, measuring approximately 9 mm. 2. No kamala lymphadenopathy is seen within the chest. CT of the chest reviewed as well as with the patient with interpretation per HPI PAST MEDICAL HISTORY Diagnosis Date [...] Other: See Comments Heart racing Tramadol Vomiting furosemide (LASIX) 20 mg tablet Take 20 mg by mouth once daily. (Patient taking differently: Take 20 mg by mouth once daily. As needed for edema) Horse [place] 300 mg cap 1 cap(s) orally TWIE DAILY leucovorin (LEUCOVORIN) 15 mg tablet Take 15 mg by mouth one time a week. methotrexate sodium 25 mg/mL soln 12.5 mg one time a week. semaglutide 0.5 mg/0.5 mL (1 mg/mL) subcutaneous compounded injection Inject 0.5 mg subcutaneously one time a week. azithromycin (ZITHROMAX) 250 mg tablet Take one on Mon, Wed, Fri ipratropium bromide (ATROVENT) 42 mcg (0.06 %) nasal spray Use 1 [employer] in the nose two times a day. vitamin B complex vit C no.3 (VITAMIN B COMP AND C NO.3 ORAL) Take 1 tablet by mouth two times a day. DULoxetine (CYMBALTA) 60 mg capsule Take 60 mg by mouth once daily. cycloSPORINE (RESTASIS MULTIDOSE) 0.05 % drop Use 1 Drop in both eyes once daily. vitamin D3-folic acid 2,500 unit- 1 mg tab Take 1 tablet by mouth once daily. chlorpheniramine (ALLER-CHLOR) 4 mg tablet Take 4 mg by mouth every 6 hours as needed. predniSONE 10 mg tablet pack Take by mouth once daily. (Patient taking differently: Take by mouth once daily. As needed for flare ups) budesonide-formoterol (SYMBICORT) 160-4.5 mcg/actuation inhaler Inhale 2 Puffs as instructed two times a day. sulfaSALAzine (AZULFIDINE) 500 mg tablet Take 500 mg by mouth two times a day. Two tablets (1,000mg) twice daily esomeprazole (NEXIUM) 20 mg capsule Take 20 mg by mouth daily at 6 am. hydrOXYchloroQUINE (PLAQUENIL) 200 mg tablet Take 200 mg by mouth once daily. using 200mg alternating with 400mg every other day cholecalciferol (VITAMIN D) 1,000 unit tab tablet Take 1,000 Units by mouth once daily. denosumab (PROLIA) 60 mg/mL syrg Inject 60 mg subcutaneously one time only. Twice yearly baclofen (LIORESAL) 10 mg tablet Take 10 mg by mouth daily at bedtime. valACYclovir (VALTREX) 500 mg tablet Take 500 mg by mouth once daily. POLYETHYLENE GLYCOL 3350 ORAL Take by mouth as needed. PSEUDOEPHEDRINE HCL (SUDAFED 12 HOUR ORAL) Take by mouth. DAILY MULTIVITAMIN ORAL Take by mouth once daily. albuterol HFA (PROVENTIL HFA, VENTOLIN HFA) 90 mcg/actuation inhaler Inhale 2 (more content not included)... Normal [facility] Absolute lymphocyte countOrd ered By: Rosa Dave on 06-07-2024 Lymphocytes Auto (Unsp spec) [#/Vol] 2.24 10*3/uL 0.83-4.51 [facility] Absolute neutrophil countOrd ered By: [facility] Jolie on 06-07-2024 Neutrophils (Bld) [#/Vol] 3.2 10*3/uL 2.0-7.7 [facility] Albumin to globulin ratioOrd ered By: Rosanicole Dave on 06-07-2024 Albumin/Globulin [Mass ratio] 1.2 {ratio} 0.9-2.4 [facility] Automated lymphocyte count a s percentage of total leukocytesOrdered By: Rosa Dave on 06-07-2024 Lymphocytes/100 WBC Auto (Unsp spec) 35.8 % 19-41 [facility] Basophil percentageOrdered B y: Rosa Dave on 06-07-2024 Basophils/100 WBC (Bld) 0.8 % 0-1 [facility] Bilirubin, totalOrdered By: [facility] Jolie on 06-07-2024 Bilirubin [Mass/Vol] 1.20 mg/dL High 0.20-1.00 [facility] Comment on above: For patients on eltr ombopag therapy, use of Dimension [place] TBIL is not recommended. Blood urea nitrogen (BUN)/cr eatinine ratioOrdered By: Rosa Dave on 06-07-2024 Urea nitrogen/Creatinine [Mass ratio] 26.2 mg/mg High 10-20 [facility] CBC W/Diff, Automatedon Absolute Lymph 2.24 X10 3/uL Normal 0.83-4.51 [facility] Comment on above: Performed By: #### [id number], [id number] #### [facility] Laboratory [address] [place], [place], [id number] Absolute Neut 3.2 X10 3/uL Normal 2.0-7.7 [facility] Comment on above: Performed By: #### L [id number], [id number] #### [facility] [address] [place], [address] Basophils/100 WBC (Bld) 0.8 % Normal 0-1 [facility] Comment on above: Performed By: #### L [id number], L100.0100 #### [facility] [address] [place], [address] Eosinophils/100 WBC (Bld) 1.6 % Normal 0-5 [facility] Comment on above: Performed By: #### L [id number], L100.0100 #### [facility] [address] [place], [address] Erythrocyte distribution width (RBC) [Ratio] 13.9 % Normal 11.6-14.6 [facility] Comment on above: Performed By: #### L [id number], L100.0100 #### [facility] [address] [place], [address] Hematocrit (Bld) [Volume fraction] 38.0 % Normal 37-47 [facility] Comment on above: Performed By: #### L [id number], L100.0100 #### [facility] [address] [place], [address] Hemoglobin (Bld) [Mass/Vol] 12.0 g/dL Normal 12.0-15.0 [facility] Comment on above: Performed By: #### L 500.4050, L100.0100 #### [facility] [address] [place], [address] IG% 0.500 Normal 0.0-0.9 [facility] Comment on above: Result Comment: IG% - Immature Granulocytes (promyelocytes, myelocytes and metamyelocytes) > 1% indicates that a LEFT SHIFT is Present. Performed By: #### L 500.4050, L100.0100 #### [facility] [address] [place], [address] Lymphocytes/100 WBC (Bld) 35.8 % Normal 19-41 [facility] Comment on above: Performed By: #### L 500.4050, L100.0100 #### [facility] [address] [place], [address] MCH (RBC) [Entitic mass] 34.5 pg High 27.0-32.0 [facility] Comment on above: Performed By: #### L [id number], L100.0100 #### [facility] [address] [place], [address] MCHC (RBC) [Mass/Vol] 31.6 g/dL Low 32-36 [facility] Comment on above: Performed By: #### L [id number], L100.0100 #### [facility] [address] [place], [address] MCV (RBC) [Entitic vol] 109.2 fL High 81-99 [facility] Comment on above: Performed By: #### L [id number], L100.0100 #### [facility] [address] [place], [address] Monocytes/100 WBC (Bld) 10.1 % High 0-10 [facility] Comment on above: Performed By: #### L [id number], L100.0100 #### [facility] [address] [place], [address] Neutrophils/100 WBC (Bld) 51.2 % Normal 47-70 [facility] Comment on above: Performed By: #### L 500.4050, L100.0100 #### [facility] [address] [place], [address] Nucleated RBC (Bld) [#/Vol] 0 10*3/uL Normal 0-5 [facility] Comment on above: Performed By: #### L 500.4050, L100.0100 #### [facility] [address] [place], [address] Platelet mean volume (Bld) [Entitic vol] 10.0 fL Normal 6.2-12.0 [facility] Comment on above: Performed By: #### L 500.4050, L100.0100 #### [facility] [address] [place], [address] Platelets (Bld) [#/Vol] 254 10*3/uL Normal 150-450 [facility] Comment on above: Performed By: #### L 500.4050, L100.0100 #### [facility] [address] [place], [address] RBC (Bld) [#/Vol] 3.48 10*6/uL Low 4.2-5.4 [facility] Comment on above: Performed By: #### L 500.4050, L100.0100 #### [facility] [address] [place], [address] RDW SD 56.7 fl High 35.1-43.9 [facility] Comment on above: Performed By: #### L 500.4050, L100.0100 #### [facility] [address] [place], [address] WBC (Bld) [#/Vol] 6.3 10*3/uL Normal 4.4-11.0 [facility] Comment on above: Performed By: #### L 500.4050, L100.0100 #### [facility] [address] [place], [address] Carbon dioxide measurementOr dered By: Rosa Dave on 06-07-2024 CO2 [Moles/Vol] 24.0 mmol/L 21.0-32.0 [facility] Chloride measurementOrdered By: Rosa Dave on 02-03-2025 Chloride [Moles/Vol] 110 mmol/L High 98-107 [facility] Comprehensive Metabolic Prof ilon 06-07-2024 Albumin [Mass/Vol] 3.7 g/dL Normal 3.2-5.0 [facility] Comment on above: Performed By: #### L 500.4050, L100.0100 #### [facility] [address] [place], [address] Albumin/Globulin [Mass ratio] 1.2 {ratio} Normal 0.9-2.4 [facility] Comment on above: Performed By: #### L 500.4050, L100.0100 #### [facility] [address] [place], [address] ALK P 40 U/L Low 45-117 [facility] Comment on above: Performed By: #### L 500.4050, L100.0100 #### [facility] [address] [place], [address] ALT [Catalytic activity/Vol] 42 U/L Normal 13-56 [facility] Comment on above: Performed By: #### L 500.4050, L100.0100 #### [facility] [address] [place], [address] AST [Catalytic activity/Vol] 33 U/L Normal 15-37 [facility] Comment on above: Result Comment: Slig ht Hemolysis, Result may be falsely increased. Performed By: #### L 500.4050, L100.0100 #### [facility] [address] [place], [address] Bilirubin [Mass/Vol] 1.20 mg/dL High 0.20-1.00 [facility] Comment on above: Result Comment: For patients on eltrombopag therapy, use of Dimension [place] TBIL is not recommended. Performed By: #### L 500.4050, L100.0100 #### [facility] [address] [place], [address] BUN/CRE 26.2 RATIO High 10-20 [facility] Comment on above: Performed By: #### L 500.4050, L100.0100 #### [facility] [address] [place], [address] CA,Total 8.6 mg/dL Normal 8.5-10.1 [facility] Comment on above: Performed By: #### L 500.4050, L100.0100 #### [facility] [address] [place], [address] Chloride [Moles/Vol] 110 mmol/L High 98-107 [facility] Comment on above: Performed By: #### L 500.4050, L100.0100 #### [facility] [address] [place], [address] CO2 [Moles/Vol] 24.0 mmol/L Normal 21.0-32.0 [facility] Comment on above: Performed By: #### L 500.4050, L100.0100 #### [facility] [address] [place], [address] Creatinine [Mass/Vol] 0.72 mg/dL Normal 0.55-1.02 [facility] Comment on above: Result Comment: The validity of the calculated GFR GFRAA in patients over 70 years has not been determined. Clinical correlation is essential. Performed By: #### L 500.4050, L100.0100 #### [facility] [address] [place], [address] EST GFR - AA 102 mL/min Normal >60 [facility] Comment on above: Result Comment: Afri can Latvian GFR Calc Performed By: #### L 500.4050, L100.0100 #### [facility] [address] [place], [address] GAP 6 Normal 5-15 [facility] Comment on above: Performed By: #### L 500.4050, L100.0100 #### [facility] [address] [place], [address] GFR/1.73 sq M.predicted among non-blacks MDRD (S/P/Bld) [Vol rate/Area] 85 mL/min/{1.73_m2} Normal >60 [facility] Comment on above: Result Comment: Non- GFR Calc Performed By: #### L 500.4050, L100.0100 #### [facility] [address] [place], [address] Globulin (S) [Mass/Vol] 3.1 g/dL Normal 2.2-4.2 [facility] Comment on above: Performed By: #### L 500.4050, L100.0100 #### [facility] [address] [place], [address] Glucose [Mass/Vol] 87 mg/dL Normal 74-106 [facility] Comment on above: Performed By: #### L 500.4050, L100.0100 #### [facility] [address] [place], [address] Potassium [Moles/Vol] 3.9 mmol/L Normal 3.5-5.1 [facility] Comment on above: Result Comment: Slig ht Hemolysis, Result may be falsely increased. Performed By: #### L 500.4050, L100.0100 #### [facility] [address] [place], [address] Sodium [Moles/Vol] 139 mmol/L Normal 136-145 [facility] Comment on above: Performed By: #### L 500.4050, L100.0100 #### [facility] [address] [place], [address] T PROT 6.8 g/dL Normal 6.4-8.2 [facility] Comment on above: Performed By: #### L 500.4050, L100.0100 #### [facility] [address] [place], [place], [id number] Urea nitrogen [Mass/Vol] 19 mg/dL High 7-18 [facility] Comment on above: Performed By: #### L 500.4050, L100.0100 #### [facility] [address] [place], [address] Eosinophil percentageOrdered By: Rosa Dave on 06-07-2024 Eosinophils/100 WBC (Bld) 1.6 % 0-5 [facility] Erythrocyte distribution wid th ratioOrdered By: Rosa Dave on 06-07-2024 Erythrocyte distribution width (RBC) [Ratio] 13.9 % 11.6-14.6 [facility] Erythrocyte distribution wid th standard deviationOrdered By: Rosa Dave on 06-07-2024 Erythrocyte distribution width (RBC) [Entitic vol] 56.7 fL High 35.1-43.9 [facility] Erythrocyte distribution width (RBC) [Ratio] 56.7 fl High 35.1-43.9 [facility] Estimated glomerular filtrat ion rate (GFR) AmericanOrdered By: Rosa Dave on 06-07-2024 Estimated GFR (MDRD) Amer 102 mL/min >60 [facility] Comment on above: GFR Calc Glomerular filtration rate ( GFR) estimationOrdered By: Rosa Dave on 06-07-2024 Estimated GFR (MDRD) Non-Af Amer 85 mL/min >60 [facility] Comment on above: Non- GFR Calc GFR/1.73 sq M.predicted among non-blacks MDRD (S/P/Bld) [Vol rate/Area] 85 mL/min/{1.73_m2} >60 [facility] Comment on above: Non- GFR Calc Glucose measurementOrdered B y: Rosa Dave on 06-07-2024 Glucose [Mass/Vol] 87 mg/dL 74-106 [facility] Hematocrit Auto (Bld) [Volum e fraction]Ordered By: Rosa Dave on 06-07-2024 Hematocrit (Bld) [Volume fraction] 38.0 % 37-47 [facility] Hemoglobin measurementOrdere d By: Rosa Dave on 06-07-2024 Hemoglobin (Bld) [Mass/Vol] 12.0 g/dL 12.0-15.0 [facility] Immature granulocytes/100 WB C Auto (Bld)Ordered By: Rosa Dave on 06-07-2024 Immature granulocytes/100 WBC (Bld) 0.500 % 0.0-0.9 [facility] Comment on above: IG% - Immature Granu locytes (promyelocytes, myelocytes and metamyelocytes) > 1% indicates that a LEFT SHIFT is Present. Laboratory - Chemistry and C hemistry - challengeOrdered By: Rosa Dave on 06-07-2024 AST [Catalytic activity/Vol] 33 U/L 15-37 [facility] Comment on above: Slight Hemolysis, Re sult may be falsely increased. Lymphocytes Auto (Unsp spec) [#/Vol]Ordered By: Rosa Dave on 06-07-2024 Lymphocytes (Bld) [#/Vol] 2.24 10*3/uL 0.83-4.51 [facility] Lymphocytes/100 WBC Auto (Un sp spec)Ordered By: Rosa Dave on 06-07-2024 Lymphocytes/100 WBC (Bld) 35.8 % 19-41 [facility] MCV (mean corpuscular volume ) determinationOrdered By: Rosa Dave on 06-07-2024 MCV (RBC) [Entitic vol] 109.2 fL High 81-99 [facility] Mean corpuscular hemoglobin (MCH) determinationOrdered By: Rosa Dave on 06-07-2024 MCH (RBC) [Entitic mass] 34.5 pg High 27.0-32.0 [facility] Mean corpuscular hemoglobin concentration (MCHC) determinationOrdered By: Rosa Dave on 06-07-2024 MCHC (RBC) [Mass/Vol] 31.6 g/dL Low 32-36 [facility] Center Mean platelet volume determi nationOrdered By: Rosa Dave on 06-07-2024 Platelet mean volume (Bld) [Entitic vol] 10.0 fL 6.2-12.0 [facility] Monocyte percentageOrdered B y: Rosa Dave on 06-07-2024 Monocytes/100 WBC (Bld) 10.1 % High 0-10 [facility] Neutrophil percentageOrdered By: Rosa Dave on 06-07-2024 Neutrophils/100 WBC (Bld) 51.2 % 47-70 [facility] Nucleated red blood cell per centageOrdered By: Rosa Dave on 06-07-2024 Nucleated RBC/100 WBC (Bld) [Ratio] 0 % 0-5 [facility] Platelet countOrdered By: Magalys Dave on 06-07-2024 Platelets (Bld) [#/Vol] 254 10*3/uL 150-450 [facility] Potassium measurementOrdered By: Rosa Dave on 06-07-2024 Potassium [Moles/Vol] 3.9 mmol/L 3.5-5.1 [facility] Comment on above: Slight Hemolysis, Re sult may be falsely increased. RBC Auto (Bld) [#/Vol]Ordere d By: Rosa Dave on 06-07-2024 RBC (Bld) [#/Vol] 3.48 10*6/uL Low 4.2-5.4 [facility] Serum anion gap measurementO rdered By: Rosa Dave on 06-07-2024 Anion gap [Moles/Vol] 6 mmol/L 5-15 [facility] Serum globulin measurementOr dered By: Rosa Dave on 06-07-2024 Globulin (S) [Mass/Vol] 3.1 g/dL 2.2-4.2 [facility] Serum or plasma alanine sotelo otransferase (ALT) measurementOrdered By: Rosa Dave on 06-07-2024 ALT [Catalytic activity/Vol] 42 U/L 13-56 [facility] Serum or plasma albumin hayley urement (mass/volume)Ordered By: Rosa Dave on 06-07-2024 Albumin [Mass/Vol] 3.7 g/dL 3.2-5.0 [facility] Serum or plasma alkaline victor manuel sphatase measurementOrdered By: Rosa Dave on 06-07-2024 ALP [Catalytic activity/Vol] 40 U/L Low 45-117 [facility] Serum or plasma calcium hayley urement (mass/volume)Ordered By: Rosa Dave on 06-07-2024 Calcium [Mass/Vol] 8.6 mg/dL 8.5-10.1 [facility] Serum or plasma creatinine m easurement (mass/volume)Ordered By: Rosa Dave on 06-07-2024 Creatinine [Mass/Vol] 0.72 mg/dL 0.55-1.02 [facility] Comment on above: The validity of the calculated GFR & GFRAA in patients over 70 years has not been determined. Clinical correlation is essential. Serum or plasma urea nitroge n measurement (mass/volume)Ordered By: Rosa Dave on 06-07-2024 Urea nitrogen [Mass/Vol] 19 mg/dL High 7-18 [facility] Sodium levelOrdered By: Samantha Dave on 06-07-2024 Sodium [Moles/Vol] 139 mmol/L 136-145 [facility] Total proteinOrdered By: Thom Dave on 06-07-2024 Protein [Mass/Vol] 6.8 g/dL 6.4-8.2 [facility] White blood cell (WBC) count Ordered By: Rosa Dave on 06-07-2024 WBC (Bld) [#/Vol] 6.3 10*3/uL 4.4-11.0 [facility] Dexa Bone Density Studyon Dexa Bone Density Study [facility] Imaging Services [address] [place] [address] [id number] Dexa Bone Density Study MR#: [id number] Acct: [id number] Name: YENNY DING Rep #: [id number] : 1955 F 69 From: Aidan chavez MD PCP: Dr. Mandy Asher MD Status: [facility] Study: Dexa Bone Density Study Date of Exam: 03/18/24 Exam# [id number] Ordering [place]: [place] [id number] STUDY: DUAL ENERGY X-RAY ABSORPTIOMETRY / DXA REASON FOR EXAM: Female, 69 years old. 733.00OsteoporosisBONE DENSITY REASON FOR EXAM TECHNIQUE: Bone Mineral Density (BMD) measurements of lumbar spine and bilateral hips were obtained. COMPARISON: Comparison is made with prior study December 06, 2021. FINDINGS: Lumbar Spine (L1-L4): g/cm2 (0.678) / T-score (-2.7) / Z-score (-0.8) Findings are suggestive of osteoporosis with a high fracture risk. Left Femur Total: g/cm2 (0.637) / T-score (-2.5) / Z-score (-1.0) Left Femoral Neck: g/cm2 (0.693) / T-score (-1.4) / Z-score (0.4) Right Femur Total: g/cm2 (0.651) / T-score (-2.4) / Z-score (-0.9) Right Femoral Neck: g/cm2 (0.600) / T-score (-2.2) / Z-score (-0.4) The T-Scores on the most recent prior examination were: Lumbar Spine (L1-L4): There has been worsening of bone density since the previous examination. Left Femur Total: which represents an improvement of 0.6%. Right Femur Total: which represents an improvement of 0.1%. BD/Dexa Bone Density Study IMPRESSION: The patient is considered osteoporotic as outlined below according to World Mandeep Organization (WHO) criteria with a high fracture risk. There has been improvement of bone density since the previous examination. Reference Information: The T-score is the number of standard deviations above or below the standard which is normal for young adults at their peak bone mineral density. The World Health Organization (WHO) interprets the T-scores as follows: Above -1 Normal bone density Between -1 and -2.5 Osteopenia Equal to / or below -2.5 Osteoporosis As a practical clinical guideline, osteopenia may be graded as follows: Mild -1 through -1.5 Moderate -1.6 through -2.0 Severe -2.1 through -2.4 The Z-score is the number of standard deviations above or below age-matched controls. A Z-score of less than -1.5 would be considered abnormal. References: 1. NIH Osteoporosis and Related Bone Diseases www osteo.org 2. International Society for Clinical Densitometry www iscd.org 3. National Osteoporosis Foundation www nof.org Electronically Signed: Aidan Viramontes MD at 13:47 EST Reading Location ID and State: [facility] / [place] , Service support , CC: Dr. Mandy Asher MD Metal Furniture Repairer: Signed Normal [facility] CBC W/Diff, Automatedon 03-05 Absolute Lymph 1.99 X10 3/uL Normal 0.83-4.51 [facility] Comment on above: Performed By: #### L 100.0100, L500.4050 #### [facility] Laboratory [address] [place], [address] Absolute Neut 3.4 X10 3/uL Normal 2.0-7.7 [facility] Comment on above: Performed By: #### L 100.0100, L500.4050 #### [facility] Laboratory [address] [place], [address] Basophils/100 WBC (Bld) 0.8 % Normal 0-1 [facility] Comment on above: Performed By: #### L 100.0100, L500.4050 #### [facility] Laboratory [address] [place], [address] Eosinophils/100 WBC (Bld) 1.2 % Normal 0-5 [facility] Comment on above: Performed By: #### L 100.0100, L500.4050 #### [facility] Laboratory [address] [place], [address] Erythrocyte distribution width (RBC) [Ratio] 13.3 % Normal 11.6-14.6 [facility] Comment on above: Performed By: #### L 100.0100, L500.4050 #### [facility] Laboratory [address] [place], [address] Hematocrit (Bld) [Volume fraction] 38.1 % Normal 37-47 [facility] Comment on above: Performed By: #### L 100.0100, L500.4050 #### [facility] Laboratory [address] [place], [address] Hemoglobin (Bld) [Mass/Vol] 12.4 g/dL Normal 12.0-15.0 [facility] Comment on above: Performed By: #### L 100.0100, L500.4050 #### [facility] Laboratory [address] [place], [address] IG% 0.300 Normal 0.0-0.9 [facility] Comment on above: Result Comment: IG% - Immature Granulocytes (promyelocytes, myelocytes and metamyelocytes) > 1% indicates that a LEFT SHIFT is Present. Performed By: #### L 100.0100, L500.4050 #### [facility] Laboratory [address] [place], [address] Lymphocytes/100 WBC (Bld) 32.8 % Normal 19-41 [facility] Comment on above: Performed By: #### L 100.0100, L500.4050 #### [facility] Laboratory [address] [place], [address] MCH (RBC) [Entitic mass] 35.9 pg High 27.0-32.0 [facility] Comment on above: Performed By: #### L 100.0100, L500.4050 #### [facility] Laboratory [address] [place], [address] MCHC (RBC) [Mass/Vol] 32.5 g/dL Normal 32-36 [facility] Comment on above: Performed By: #### L 100.0100, L500.4050 #### [facility] Laboratory [address] [place], [address] MCV (RBC) [Entitic vol] 110.4 fL High 81-99 [facility] Comment on above: Performed By: #### L 100.0100, L500.4050 #### [facility] Laboratory [address] [place], [address] Monocytes/100 WBC (Bld) 8.6 % Normal 0-10 [facility] Comment on above: Performed By: #### L 100.0100, L500.4050 #### [facility] Laboratory [address] [place], [address] Neutrophils/100 WBC (Bld) 56.3 % Normal 47-70 [facility] Comment on above: Performed By: #### L 100.0100, L500.4050 #### [facility] Laboratory [address] [place], [address] Nucleated RBC (Bld) [#/Vol] 0 10*3/uL Normal 0-5 [facility] Comment on above: Performed By: #### L 100.0100, L500.4050 #### [facility] Laboratory [address] [place], [address] Platelet mean volume (Bld) [Entitic vol] 9.5 fL Normal 6.2-12.0 [facility] Comment on above: Performed By: #### L 100.0100, L500.4050 #### [facility] Laboratory [address] [place], [address] Platelets (Bld) [#/Vol] 271 10*3/uL Normal 150-450 [facility] Comment on above: Performed By: #### L 100.0100, L500.4050 #### [facility] Laboratory [address] [place], [address] RBC (Bld) [#/Vol] 3.45 10*6/uL Low 4.2-5.4 [facility] Comment on above: Performed By: #### L 100.0100, L500.4050 #### [facility] Laboratory [address] [place], [address] RDW SD 54.9 fl High 35.1-43.9 [facility] Comment on above: Performed By: #### L 100.0100, L500.4050 #### [facility] Laboratory [address] [place], [address] WBC (Bld) [#/Vol] 6.1 10*3/uL Normal 4.4-11.0 [facility] Comment on above: Performed By: #### L 100.0100, L500.4050 #### [facility] Laboratory [address] [place], [address] Comprehensive Metabolic Prof [facility] 03-15-2024 Albumin [Mass/Vol] 3.9 g/dL Normal 3.2-5.0 [facility] Comment on above: Performed By: #### L 100.0100, L500.4050 #### [facility] Laboratory [address] [place], [address] Albumin/Globulin [Mass ratio] 1.3 {ratio} Normal 0.9-2.4 [facility] Comment on above: Performed By: #### L 100.0100, L500.4050 #### [facility] Laboratory [address] [place], [address] ALK P 45 U/L Normal 45-117 [facility] Comment on above: Performed By: #### L 100.0100, L500.4050 #### [facility] Laboratory [address] [place], [address] ALT [Catalytic activity/Vol] 31 U/L Normal 13-56 [facility] Comment on above: Performed By: #### L 100.0100, L500.4050 #### [facility] Laboratory [address] [place], [address] AST [Catalytic activity/Vol] 25 U/L Normal 15-37 [facility] Comment on above: Performed By: #### L 100.0100, L500.4050 #### [facility] Laboratory [address] [place], [address] Bilirubin [Mass/Vol] 1.20 mg/dL High 0.20-1.00 [facility] Comment on above: Result Comment: For patients on eltrombopag therapy, use of Dimension [place] TBIL is not recommended. Performed By: #### L 100.0100, L500.4050 #### [facility] Laboratory [address] [place], [address] BUN/CRE 18.3 RATIO Normal 10-20 [facility] Comment on above: Performed By: #### L 100.0100, L500.4050 #### [facility] Laboratory [address] [place], [address] CA,Total 8.7 mg/dL Normal 8.5-10.1 [facility] Comment on above: Performed By: #### L 100.0100, L500.4050 #### [facility] Laboratory [address] [place], [address] Chloride [Moles/Vol] 106 mmol/L Normal 98-107 [facility] Comment on above: Performed By: #### L 100.0100, L500.4050 #### [facility] Laboratory [address] [place], [address] CO2 [Moles/Vol] 26.0 mmol/L Normal 21.0-32.0 [facility] Comment on above: Performed By: #### L 100.0100, L500.4050 #### [facility] Laboratory [address] [place], [address] Creatinine [Mass/Vol] 0.82 mg/dL Normal 0.55-1.02 [facility] Comment on above: Result Comment: The validity of the calculated GFR GFRAA in patients over 70 years has not been determined. Clinical correlation is essential. Performed By: #### L 100.0100, L500.4050 #### [facility] Laboratory [address] [place], [address] EST GFR - AA 89 mL/min Normal >60 [facility] Comment on above: Result Comment: Afri can Latvian GFR Calc Performed By: #### L 100.0100, L500.4050 #### [facility] Laboratory [address] [place], [address] GAP 9 Normal 5-15 [facility] Comment on above: Performed By: #### L 100.0100, L500.4050 #### [facility] Laboratory [address] [place], [address] GFR/1.73 sq M.predicted among non-blacks MDRD (S/P/Bld) [Vol rate/Area] 73 mL/min/{1.73_m2} Normal >60 [facility] Comment on above: Result Comment: Non- GFR Calc Performed By: #### L 100.0100, L500.4050 #### [facility] Laboratory [address] [place], [address] Globulin (S) [Mass/Vol] 2.9 g/dL Normal 2.2-4.2 [facility] Comment on above: Performed By: #### L 100.0100, L500.4050 #### [facility] Laboratory [address] [place], [address] Glucose [Mass/Vol] 90 mg/dL Normal 74-106 [facility] Comment on above: Performed By: #### L 100.0100, L500.4050 #### [facility] Laboratory [address] [place], [address] Potassium [Moles/Vol] 3.6 mmol/L Normal 3.5-5.1 [facility] Comment on above: Performed By: #### L 100.0100, L500.4050 #### [facility] Laboratory [address] [place], [address] Sodium [Moles/Vol] 141 mmol/L Normal 136-145 [facility] Comment on above: Performed By: #### L 100.0100, L500.4050 #### [facility] Laboratory [address] [place], [address] T PROT 6.8 g/dL Normal 6.4-8.2 [facility] Comment on above: Performed By: #### L 100.0100, L500.4050 #### [facility] Laboratory [address] [place], [address] Urea nitrogen [Mass/Vol] 15 mg/dL Normal 7-18 [facility] Comment on above: Performed By: #### L 100.0100, L500.4050 #### [facility] Laboratory [address] [place], [address] [facility] CNPN Telephone (PULMWS) YENNY DING ([id number]) 1955 Date Time Provider Department 03/03/24 MELODY FERNANDEZ PULMWS During your visit today, we recorded the following information about you: Melody Fernandez MD 03/03/2024 8:47 AM Signed Left voicemail message and send Changbahart message. Old findings have resolved. Has a RUL gorund glass nodule that will need a surveillance chest CT in 6 months. Placed order. Amanda Kramer 03/03/2024 10:00 AM Signed 1st call attempt, left vm Audra Benitez LPN 03/05/2024 9:36 AM Signed Patient called. Verified name and date of . Informed- verbalizes understanding and states scheduling has called her. Audra Benitez LPN Allergies As of Date: 03/03/2024 Noted Allergy Reaction BACTRIM (SULFAMETHOXAZOLE-TRIME TH*07/12/2005 8 - GI Upset CLARITIN (LORATADINE) 07/12/2005 MORPHINE 02/06/2016 11 - Vomiting NOVACAIN (PROCAINE HCL) 03/14/2014 14 - Other: See Comments Comments: Heart racing TRAMADOL 02/06/2016 11 - Vomiting Date Reviewed: 02/24/2024 Reviewed by: Audra Camarena, RT(R) - Fully Assessed Reason for Visit: Results [95] Cmt: Chest CT Primary Visit Diagnosis:Lung nodules [R91.8] Other Visit Diagnosis:Ground glass opacity present on imaging of lung [R91.8] Order(s):CT CHEST WO IVCON [[id number]] Order #: [id number] FUTURE Prescriptions as of 03/05/2024 - vitamin B complex vit C no.3 (VITAMIN B COMP AND C NO.3 ORAL) Take 1 tablet by mouth once daily. - fluticasone propionate (FLONASE NASAL) Use 2 Sprays in the nose once daily. - DULoxetine (CYMBALTA) 60 mg capsule Take 60 mg by mouth once daily. - cycloSPORINE (RESTASIS MULTIDOSE) 0.05 % drop Use 1 Drop in both eyes once daily. - vitamin D3-folic acid 2,500 unit- 1 mg tab Take 1 tablet by mouth once daily. - miSOPROStol (CYTOTEC) 100 mcg tablet Take 100 mcg by mouth four times daily. - chlorpheniramine (ALLER-CHLOR) 4 mg tablet Take 4 mg by mouth every 6 hours as needed. - levocetirizine 5 mg tablet Take 5 mg by mouth once daily. - OXYGEN, HOME THERAPY, Inhale 3 L/min as instructed as directed. - naloxone 4 mg/actuation nasal spray (NARCAN) [address] [employer] [place] by nasal (alternating) route as needed for known or suspected opioid overdose. Use 1 spray in one nostril as needed for overdose. May repeat every 2 to 3 min in alternating nostrils until medical assistance is available - albuterol HFA 90 mcg/actuation HFA Inhale 2 Puffs as instructed as needed. - OTC NUTRITIONAL SUPPLEMENT Take 1 tablet by mouth once daily. Biotin - magnesium oxide 400 mg magnesium tab Take 1 tablet by mouth once daily. - OTC NUTRITIONAL SUPPLEMENT Take 1 tablet by mouth once daily. [facility] [place] - predniSONE 10 mg tablet pack Take by mouth once daily. - budesonide-formoterol (SYMBICORT) 160-4.5 mcg/actuation inhaler Inhale 2 Puffs as instructed two times a day. - azithromycin (ZITHROMAX) 250 mg tablet Take one on Mon, Wed, Fri - albuterol HFA (PROVENTIL HFA, VENTOLIN HFA) 90 mcg/actuation inhaler Inhale 2 Puffs as instructed every 4 hours as needed. - ipratropium bromide (ATROVENT) 42 mcg (0.06 %) nasal spray Use 1 [employer] [place] in the nose two times a day. - sulfaSALAzine (AZULFIDINE) 500 mg tablet Take 500 mg by mouth three times a day. - esomeprazole (NEXIUM) 20 mg capsule Take 20 mg by mouth daily at 6 am. - potassium citrate ER (UROCIT-K) 10 mEq (1,080 mg) Take 2,160 mg by mouth once daily. - hydrOXYchloroQUINE (PLAQUENIL) 200 mg tablet Take 200 mg by mouth once daily. - celecoxib (CELEBREX) 200 mg capsule - oxyCODONE-acetaminophen (PERCOCET) 5-325 mg tablet Take 1 tablet by mouth every 4 hours as needed. - gabapentin (NEURONTIN) 300 mg capsule 300am Am , 300 mg at 1500, 600 mg at bedtime - oxyCODONE immediate release (PERCOLONE) 5 mg immediate release tablet - potassium citrate ER (UROCIT-K) 5 mEq (540 mg) TbER - ranitidine (ZANTAC) 150 mg tablet - PHENYLEPHRINE/HYDROCODO NE/CP (HYDROCODONE CP ORAL) Take by mouth. 5mg-no acetaminophen every 3-6 hours prn pain - K+Ftfo-Glssmwib-Cmuy-Ma nPoly (ORAMAGICRX) mwsh Use as instructed three times daily. - ipratropium-albuterol (COMBIVENT RESPIMAT) 20-100 mcg/actuation mist Inhale as instructed as needed. - cholecalciferol (VITAMIN D) 1,000 unit tab tablet Take 1,000 Units by mouth once daily. - denosumab (PROLIA) 60 mg/mL syrg Inject 60 mg subcutaneously one time only. Twice yearly - baclofen (LIORESAL) 10 mg tablet Take 10 mg by mouth daily at bedtime. - valACYclovir (VALTREX) 500 mg tablet Take 500 mg by mouth once daily. - alendronate (FOSAMAX) 70 mg tablet Take 70 mg by mouth once each week. - POLYETHYLENE GLYCOL 3350 ORAL Take by mouth as needed. - hydrOXYzine HCl (ATARAX) 25 mg tablet Take 25 mg by mouth every 8 hours as needed. - estradiol (ESTRACE) 0.01 % (0.1 mg/gram) vaginal cream Use small amount in vag (more content not included)... Normal [facility] Urine Cultureon 03-03-2024 [facility] Order Date: 03/01/24 Order Info: 630-4 - CUUR Enterococcus faecalis [place] Count >100,000 Enterococcus faecalis: REACTION Ampicillin Islt MICHAEL <=2 Ciprofloxacin Islt MICHAEL <=0.5 S Gentamicin Synergy Susc Islt SYN-S S levoFLOXacin Islt MICHAEL 1 S Linezolid Islt MICHAEL 2 S Nitrofurantoin Islt MICHAEL <=16 S Streptomycin High Pot Susc Islt SYN-S S Tetracycline Islt MICHAEL >=16 R Vancomycin Islt MICHAEL 1 S Normal [facility] Comment on above: Performed By: #### L 500.4050 #### [facility] Laboratory [address] [place], [address] Urinalysis, Routine (Dipstic k)on 03-01-2024 BILIRUBIN URINE 6 mg/dL Abnormal Negative [facility] Comment on above: Order Comment: Order Date: 03/01/24 Order Info: 0610-1 - UA COLOR OF URINE MAY AFFECT DIPSTICK RESULTS. HOSE FINISHER TO SPECIFY Result Comment: COLO R OF URINE MAY AFFECT DIPSTICK RESULTS. Performed By: #### L 400.2010 #### [facility] Laboratory [address] [place], [address] Clarity (U) Cloudy Normal Clear [facility] Comment on above: Order Comment: Order Date: 03/01/24 Order Info: 0610-1 - UA COLOR OF URINE MAY AFFECT DIPSTICK RESULTS. HOSE FINISHER TO SPECIFY Performed By: #### L 400.2010 #### [facility] Laboratory [address] [place], [address] Color (U) Brown Normal Yellow [facility] Comment on above: Order Comment: Order Date: 03/01/24 Order Info: 0610-1 - UA COLOR OF URINE MAY AFFECT DIPSTICK RESULTS. HOSE FINISHER TO SPECIFY Performed By: #### L 400.2010 #### [facility] [address] [place], [address] GLUCOSE, UR Normal Normal Normal [facility] Comment on above: Order Comment: Order Date: 03/01/24 Order Info: 0610-1 - UA COLOR OF URINE MAY AFFECT DIPSTICK RESULTS. HOSE FINISHER TO SPECIFY Performed By: #### L 400.2010 #### [facility] [address] [place], [address] KETONE UR Negative Normal Negative [facility] Comment on above: Order Comment: Order Date: 03/01/24 Order Info: 0610-1 - UA COLOR OF URINE MAY AFFECT DIPSTICK RESULTS. HOSE FINISHER TO SPECIFY Performed By: #### L 400.2010 #### [facility] [address] [place], [address] LEUK ESTERASE 100 /ul Abnormal Negative [facility] Comment on above: Order Comment: Order Date: 03/01/24 Order Info: 0610-1 - UA COLOR OF URINE MAY AFFECT DIPSTICK RESULTS. HOSE FINISHER TO SPECIFY Performed By: #### L 400.2010 #### [facility] [address] [place], [address] Nitrite Ql (U) Positive Abnormal Negative [facility] Comment on above: Order Comment: Order Date: 03/01/24 Order Info: 0610-1 - UA COLOR OF URINE MAY AFFECT DIPSTICK RESULTS. HOSE FINISHER TO SPECIFY Performed By: #### L 400.2010 #### [facility] Laboratory [address] [place], [address] OCCULT BLOOD-UR 10 /ul Abnormal Negative [facility] Comment on above: Order Comment: Order Date: 03/01/24 Order Info: 0610-1 - UA COLOR OF URINE MAY AFFECT DIPSTICK RESULTS. HOSE FINISHER TO SPECIFY Performed By: #### L 400.2010 #### [facility] [address] [place], [address] pH UR 6.5 Normal 5.0 - 8.0 [facility] Comment on above: Order Comment: Order Date: 03/01/24 Order Info: 0610-1 - UA COLOR OF URINE MAY AFFECT DIPSTICK RESULTS. HOSE FINISHER TO SPECIFY Performed By: #### L 400.2010 #### [facility] [address] [place], [address] PROT DIPSTX 30 mg/dl Abnormal Negative [facility] Comment on above: Order Comment: Order Date: 03/01/24 Order Info: 0610-1 - UA COLOR OF URINE MAY AFFECT DIPSTICK RESULTS. HOSE FINISHER TO SPECIFY Performed By: #### L 400.2010 #### [facility] [address] [place], [address] SP.GR. DIPSTX 1.015 Normal 1.002-1.030 [facility] Comment on above: Order Comment: Order Date: 03/01/24 Order Info: 0610-1 - UA COLOR OF URINE MAY AFFECT DIPSTICK RESULTS. HOSE FINISHER TO SPECIFY Performed By: #### L 400.2010 #### [facility] [address] [place], [address] UROBILI 12 mg/dl Abnormal Normal [facility] Comment on above: Order Comment: Order Date: 03/01/24 Order Info: 0610-1 - UA COLOR OF URINE MAY AFFECT DIPSTICK RESULTS. HOSE FINISHER TO SPECIFY Performed By: #### L 400.2010 #### [facility] [address] [place], [address] CT CHEST WO IVCONon 02-27-20 CT CHEST WO IVCON * * *Final Report* * * DATE OF EXAM: Feb 27 2024 12:03PM [facility] 0541 - CT CHEST WO IVCON / PROCEDURE REASON: multiple diagnoses * * * * Physician Interpretation * * * * EXAMINATION: CHEST CT WITHOUT CONTRAST CLINICAL HISTORY: Bronchiectasis. Lung nodules. Technique: Spiral CT acquisition of the chest from the thoracic inlet to the upper abdomen without contrast. MQ: [id number] CT Radiation dose: Integrated Dose-length product (DLP) for this visit = 175 mGy*cm CT Dose Reduction Employed: Automated exposure control(AEC) and iterative recon RESULT: Limitations: None. Lines, tubes, and devices: None. Lung parenchyma and airways: Emphysema with mild diffuse bronchiectasis. There is biapical fibrosis. There is a groundglass attenuation nodular opacity is seen within the right upper lobe, measuring approximately 9 mm (series 5, image #58). There is no pneumothorax or endobronchial lesion. Pleural space: No pleural effusion. Lower neck, lymph nodes, and mediastinum: There are no pathologically enlarged axillary, mediastinal, or hilar lymph nodes. Heart, pericardium, and thoracic vessels: Atherosclerotic calcifications are present within the thoracic aorta and coronary arteries. The heart is normal in size. There is a trace pericardial effusion. There is a tiny hiatal hernia. Bones and soft tissues: There is scoliosis and multilevel degenerative change seen within the visualized spine. Shoulder DJD. Sclerotic foci are seen involving lateral ribs, right greater than left, which may relate to healing fractures. Upper abdomen: Prominent, less than 1 cm abdominal lymph nodes are likely reactive. IMPRESSION: 1. Emphysema, with mild diffuse bronchiectasis. Groundglass attenuation nodular opacity is seen within the right upper lobe, measuring approximately 9 mm. 2. No kamala lymphadenopathy is seen within the chest. Incidental Finding: Follow-up Acuity: Incidental Finding: Non solid: 6 mm or greater (solitary nodule) Routing Code: RI_1 Recommendation: CT Chest WO IVCON Time Frame: 6-12 months Comments: If stable on follow-up imaging, repeat chest CT exams in 24 and 48 months are recommended (at 30-36 and 54-60 months from the initial exam) --END OF FINDING-- Metal Furniture Repairer: KYM Transcribe Date/Time: Mar 02 2024 4:44P Dictated by : MATTHIAS WESTBROOK MD This examination was interpreted and the report reviewed and electronically signed by: MATTHIAS WESTBROOK MD on Mar 02 2024 4:49PM EST [id number] [id number] Invalid Interpretation Code [facility] ALGN WOOLWICH GRPon 02-23 A. alternata IgE Qn (S) <0.35 Normal <0.35 [facility] Comment on above: Order Comment: Azra murray Type: BLOOD SPECIMEN Ordering Facility: [facility] Address: [address] [place] [address] Performed By: #### 7 11-2 #### [id number] [address] [place] [address] [place] A. alternata IgE RAST class (S) Class 0 Normal Class 0 [facility] Comment on above: Order Comment: Azra murray Type: BLOOD SPECIMEN Ordering Facility: [facility] Address: [address] [place] [address] Performed By: #### 7 11-2 #### [facility] CLIA [id number] [address] [place] [address] [place] Latvian house dust mite IgE Qn (S) <0.35 Normal <0.35 [facility] Comment on above: Order Comment: Azra murray Type: BLOOD SPECIMEN Ordering Facility: [facility] Address: [address] [place] [address] Performed By: #### 7 11-2 #### [facility] CLIA [id number] [address] [place] [address] [place] Latvian house dust mite IgE RAST class (S) Class 0 Normal Class 0 [facility] Comment on above: Order Comment: Speci men Type: BLOOD SPECIMEN Ordering Facility: [facility] Address: [address] [place] [address] Performed By: #### 7 11-2 #### [facility] CLIA [id number] [address] [place] [address] [place] C. herbarum IgE Qn (S) <0.35 Normal <0.35 [facility] Comment on above: Order Comment: Speci men Type: BLOOD SPECIMEN Ordering Facility: [facility] Address: [address] [place] [address] Performed By: #### 7 11-2 #### [facility] CLIA [id number] [address] [place] [address] [place] C. herbarum IgE RAST class (S) Class 0 Normal Class 0 [facility] Comment on above: Order Comment: Speci men Type: BLOOD SPECIMEN Ordering Facility: [facility] Address: [address] [place] [address] Performed By: #### 7 11-2 #### [facility] CLIA [id number] [address] [place] [address] [place] Cat dander IgE Qn (S) <0.35 Normal <0.35 [facility] Comment on above: Order Comment: Speci men Type: BLOOD SPECIMEN Ordering Facility: [facility] Address: [address] [place] [address] Performed By: #### 7 11-2 #### [facility] CLIA [id number] [address] [place] [address] [place] Cat dander IgE RAST class (S) Class 0 Normal Class 0 [facility] Comment on above: Order Comment: Speci men Type: BLOOD SPECIMEN Ordering Facility: [facility] Address: [address] [id number] Performed By: #### 7 11-2 #### [facility] CLIA [id number] [address] [place] [address] [place] Common Ragweed IgE Qn (S) <0.35 Normal <0.35 [facility] Comment on above: Order Comment: Speci men Type: BLOOD SPECIMEN Ordering Facility: [facility] Address: [address] [place] [address] Performed By: #### 7 11-2 #### [facility] CLIA [id number] [address] [place] [address] [place] Common Ragweed IgE RAST class (S) Class 0 Normal Class 0 [facility] Comment on above: Order Comment: Speci men Type: BLOOD SPECIMEN Ordering Facility: [facility] Address: [address] [place] [address] Performed By: #### 7 11-2 #### [facility] CLIA [id number] [address] [place] [address] [place] Dog dander IgE Qn (S) <0.35 Normal <0.35 [facility] Comment on above: Order Comment: Speci men Type: BLOOD SPECIMEN Ordering Facility: [facility] Address: [address] [place] [address] Performed By: #### 7 11-2 #### [facility] CLIA [id number] [address] [place] [address] [place] Dog dander IgE RAST class (S) Class 0 Normal Class 0 [facility] Comment on above: Order Comment: Speci men Type: BLOOD SPECIMEN Ordering Facility: [facility] Address: [address] [place] [address] Performed By: #### 7 11-2 #### [facility] CLIA [id number] [address] [place] [address] [place] Goosefoot IgE Qn (S) <0.35 Normal <0.35 [facility] Comment on above: Order Comment: Speci men Type: BLOOD SPECIMEN Ordering Facility: [facility] Address: [address] [place] [address] Performed By: #### 7 11-2 #### [facility] CLIA [id number] [address] [place] [address] [place] Goosefoot IgE RAST class (S) Class 0 Normal Class 0 [facility] Comment on above: Order Comment: Speci men Type: BLOOD SPECIMEN Ordering Facility: [facility] Address: [address] [place] [address] Performed By: #### 7 11-2 #### [facility] CLIA [id number] [address] [place] [address] [place] Kentucky blue grass IgE Qn (S) <0.35 Normal <0.35 [facility] Comment on above: Order Comment: Speci men Type: BLOOD SPECIMEN Ordering Facility: [facility] Address: [address] [place] [address] Performed By: #### 7 11-2 #### [facility] CLIA [id number] [address] [place] [address] [place] blue grass IgE RAST class (S) Class 0 Normal Class 0 [facility] Comment on above: Order Comment: Speci men Type: BLOOD SPECIMEN Ordering Facility: [facility] Address: [address] [place] [address] Performed By: #### 7 11-2 #### [facility] CLIA [id number] [address] [place] [address] [place] George IgE Qn (S) <0.35 Normal <0.35 [facility] Comment on above: Order Comment: Speci men Type: BLOOD SPECIMEN Ordering Facility: [facility] Address: [address] [place] [address] Performed By: #### 7 11-2 #### [facility] CLIA [id number] [address] [place] [address] [place] George IgE RAST class (S) Class 0 Normal Class 0 [facility] Comment on above: Order Comment: Speci men Type: BLOOD SPECIMEN Ordering Facility: [facility] Address: [address] [place] [address] Performed By: #### 7 11-2 #### [facility] CLIA [id number] [address] [place] [address] [place] Moravia IgE Qn (S) <0.35 Normal <0.35 [facility] Comment on above: Order Comment: Speci men Type: BLOOD SPECIMEN Ordering Facility: [facility] Address: [address] [place] [address] Performed By: #### 7 11-2 #### [facility] CLIA [id number] [address] [place] [address] [place] IgE RAST class (S) Class 0 Normal Class 0 [facility] Comment on above: Order Comment: Speci men Type: BLOOD SPECIMEN Ordering Facility: [facility] Address: [address] [place] [address] Performed By: #### 7 11-2 #### [facility] CLIA [id number] [address] [place] [address] [place] Eosinophils Auto (Bld) [#/Vo l]on 02-24-2024 Eosinophils (Bld) [#/Vol] 0.09 10*3/uL Normal <0.46 [facility] Comment on above: Order Comment: Speci men Type: BLOOD SPECIMEN Ordering Facility: [facility] Address: [address] [place] [address] Performed By: #### 7 11-2 #### [facility] CLIA [id number] [address] [place] [address] [place] IgE SerPl-aCncon 02-24-2024 IgE Qn 7.8 kU/l Normal <114.0 [facility] Comment on above: Order Comment: Speci men Type: BLOOD SPECIMEN Ordering Facility: [facility] Address: [address] [place] [address] Performed By: #### 1 9113-0 #### [facility] CLIA [id number] [address] [place] [address] [place] [address] [place] CNOVon 02-17-2024 CNOV Office Visit (PULMWS ) YENNY DING ([id number]) 1955 F Date Time Provider Department 02/17/24 12:45 PM MELODY FERNANDEZ PULMWS During your visit today, we recorded the following information about you: Temperature Pulse Blood pressure Weight 97.7 degrees 89/minute 113/66 59 kg Melody Fernandez MD 02/17/2024 4:01 PM Signed . 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 She does not have [...] Imaging / Diagnostic Studies: 2020: CT chest [facility] 2019: I personally reviewed the images with [...] naloxone 4 mg/actuation nasal spray (NARCAN) [address] [employer] by nasal (alternating) route as needed for [...] 1 tablet by mouth once daily. [facility] [place] predniSONE 10 mg tablet pack Take by mouth once daily. azithromycin (ZITHROMAX) 250 mg tablet Take one on Mon, Wed, Fri albuterol HFA (PROVENTIL HFA, VENTOLIN HFA) 90 mcg/actuation inhaler Inhale 2 Puffs as instructed every 4 hours as needed. ipratropium bromide (ATROVENT) 42 mcg (0.06 %) nasal spray Use 1 [employer] in the nose two times a day. sulfaSALAzine (AZULFIDINE) 500 mg tablet Take 500 mg by mouth three times a day. esomeprazole (NEXIUM) 20 mg capsule Take 20 mg (more content not included)... Normal [facility] No Panel Informationon 02-16 DLCO (ml/min/mmHg) 15.02 ml/min/mmHg [facility] DLCO LLN (ml/min/mmHg) 14.35 ml/min/mmHg [facility] DLCO PREDICTED (ml/min/mmHg) 20.52 ml/min/mmHg [facility] DLCO ULN (ml/min/mmHg) 26.69 ml/min/mmHg [facility] DLCO/VA (ml/min/mmHg/L) 3.07 ml/min/mmHg/ L [facility] DLCO/VA PREDICTED (ml/min/mmHg/L) 4.29 ml/min/mmHg/ L [facility] DLCOcor PREDICTED (ml/min/mmHg) 20.52 ml/min/mmHg [facility] ERV PREDICTED (L) 0.92 L/S [facility] FEF25% POST (L/S) 4.43 L[facility] FEF25% PRE (L/S) 3.87 L/S [facility] UDQ33-88% LLN (L/S) 0.87 L/S [facility] MJJ53-56% POST (L/S) 0.95 L/S [facility] UUD57-84% PRE (L/S) 1.08 L/S [facility] DSU98-73% PREDICTED (L/S) 1.87 L/S [facility] FEF75% LLN (L/S) 0.17 L/S [facility] FEF75% POST (L/S) 0.30 L/S [facility] FEF75% PRE (L/S0 0.30 L/S [facility] FEF75% PREDICTED (L/S) 0.46 L/S [facility] FEF75% ULN (L/S) 1.21 L/S [facility] FET POST (S) 10.93 S [facility] FET PRE (S) 14.23 S [facility] FEV1 LLN (L) 1.50 L [facility] FEV1 PRE (L) 2.13 L [facility] FEV1 PREDICTED (L) 2.15 L [facility] FEV1 ULN (L) 2.75 L [facility] FEV1/FVC LLN (%) 66 % [facility] FEV1/FVC POST (%) 67 % [facility] FEV1/FVC PRE (%) 63 % [facility] FEV1/FVC PREDICTED (%) 79 % [facility] FEV1_POST (L) 2.13 L [facility] FVC LLN (L) 1.95 L [facility] FVC POST (L) 3.16 L [facility] F[facility] PRE (L) 3.37 L [facility] FVC PREDICTED (L) 2.75 L [facility] FVC ULN (L) 3.58 L [facility] IC PREDICTED (L) 1.84 L/S [facility] PEF LLN (L/S) 3.93 L/S [facility] PEF POST (L/S) 6.01 L/S [facility] PEF PRE (L/S) 5.97 L/S [facility] PEF ULN (L/S) 7.36 L/S [facility] SVC LLN (L) 1.95 L/S [facility] SVC PREDICTED (L) 2.75 L/S [facility] SVC ULN (L) 3.58 L/S [facility] VA (L) 4.90 L [facility] VA PREDICTED (L) 5.06 L [facility] [address] [place] [address] Test Date: 2024-02-17 Pat Name: YENNY DING Department: Room: Gender: Female Back Maker: : 1955 Requested By: Order Number: [id number] Reading MD: Melody Fernandez MD Interpretive Statements Medications and Allergies were [...] Signed On 02-17-2024 12:28:52 EDT by Melody Fernandez MD ID: [id number] Name: YENNY DING Race: White Ht: 64.02 in Wt: 130.00 lbs Age: 69 Gender: Female : 1955 Dx: COPD_ Smoking Hx: Non-smoker Doctor: MELODY FERNANDEZ Test Date: 02/17/2024 Site: [facility] Tech: Edgar Nolna PRE-BRONCH POST-BRONCH Pre LLN Pred ULN %Pred [...] 0.32 6 FIVC (L) 3.18 3.00 -5 ZSC28-06 (L/sec) 1.08 0.87 1.87 3.30 57 0.95 [...] HR post = 105/min. PULMONARY FUNCTION LAB [facility] Absolute lymphocyte countOrd ered By: Rosa Dave on 07-22-2023 Lymphocytes Auto (Unsp spec) [#/Vol] 2.04 10*3/uL 0.83-4.51 [facility] Automated lymphocyte count a s percentage of total leukocytesOrdered By: Rosa Dave on 07-22-2023 Lymphocytes/100 WBC Auto (Unsp spec) 32.9 % 19-41 [facility] Basophil percentageOrdered B y: Rosa Dave on 07-22-2023 Basophils/100 WBC (Bld) 0.8 % 0-1 [facility] Bilirubin [Mass/Vol] 0.70 mg/dL 0.20-1.00 [facility] Comment on above: For patients on eltr ombopag therapy, use of Dimension [place] TBIL is not recommended. Chloride [Moles/Vol] 105 mmol/L 98-107 [facility] Eosinophils/100 WBC (Bld) 1.6 % 0-5 [facility] Glucose [Mass/Vol] 96 mg/dL 74-106 [facility] Hemoglobin (Bld) [Mass/Vol] 14.6 g/dL 12.0-15.0 [facility] Monocytes/100 WBC (Bld) 11.0 % 0-10 [facility] Neutrophils (Bld) [#/Vol] 3.3 10*3/uL 2.0-7.7 [facility] Neutrophils/100 WBC (Bld) 53.2 % 47-70 [facility] Potassium [Moles/Vol] 4.0 mmol/L 3.5-5.1 [facility] Protein [Mass/Vol] 7.1 g/dL 6.4-8.2 [facility] Sodium [Moles/Vol] 141 mmol/L 136-145 [facility] WBC (Bld) [#/Vol] 6.2 10*3/uL 4.4-11.0 [facility] Determination of erythrocyte mean corpuscular volume (MCV)Ordered By: Rosa Dave on 07-22-2023 MCV (RBC) [Entitic vol] 106.0 fL 81-99 [facility] Erythrocyte distribution wid th ratioOrdered By: Rosa Dave on 07-22-2023 Erythrocyte distribution width (RBC) [Ratio] 13.2 % 11.6-14.6 [facility] Erythrocyte distribution wid th standard deviationOrdered By: Rosa Dave on 07-22-2023 Erythrocyte distribution width (RBC) [Entitic vol] 51.9 fL 35.1-43.9 [facility] Hematocrit Auto (Bld) [Volum e fraction]Ordered By: Rosa Dave on 07-22-2023 Hematocrit (Bld) [Volume fraction] 44.4 % 37-47 [facility] Immature granulocytes/100 WB C Auto (Bld)Ordered By: Rosa Dave on 07-22-2023 Immature granulocytes/100 WBC (Bld) 0.500 % 0.0-0.9 [facility] Comment on above: IG% - Immature Granu locytes (promyelocytes, myelocytes and metamyelocytes) > 1% indicates that a LEFT SHIFT is Present. Laboratory - Chemistry and C hemistry - challengeOrdered By: Rosa Dave on 07-22-2023 Albumin/Globulin [Mass ratio] 1.1 {ratio} 0.9-2.4 [facility] ALP [Catalytic activity/Vol] 47 U/L 45-117 [facility] ALT [Catalytic activity/Vol] 32 U/L 13-56 [facility] CO2 [Moles/Vol] 28.0 mmol/L 21.0-32.0 [facility] Globulin (S) [Mass/Vol] 3.4 g/dL 2.2-4.2 [facility] Urea nitrogen/Creatinine [Mass ratio] 24.0 mg/mg 10-20 [facility] Laboratory - Hematology and Cell countsOrdered By: Rosa Dave on 07-22-2023 MCH (RBC) [Entitic mass] 34.8 pg 27.0-32.0 [facility] MCHC (RBC) [Mass/Vol] 32.9 g/dL 32-36 [facility] Nucleated RBC/100 WBC (Bld) [Ratio] 0 % 0-5 [facility] Platelet mean volume (Bld) [Entitic vol] 10.5 fL 6.2-12.0 [facility] Platelets (Bld) [#/Vol] 295 10*3/uL 150-450 [facility] No Panel InformationOrdered By: Rosa Dave on 07-22-2023 Estimated GFR (MDRD) Amer 87 mL/min >60 [facility] Comment on above: GFR Calc Estimated GFR (MDRD) Non-Af Amer 72 mL/min >60 [facility] Comment on above: Non- GFR Calc RBC Auto (Bld) [#/Vol]Ordere d By: Rosa Dave on 07-22-2023 RBC (Bld) [#/Vol] 4.19 10*6/uL 4.2-5.4 [facility] Serum or plasma calcium hayley urement (mass/volume)Ordered By: Rosa Dave on 07-22-2023 Calcium [Mass/Vol] 9.1 mg/dL 8.5-10.1 [facility] Serum or plasma creatinine m easurement (mass/volume)Ordered By: Rosa Dave on 07-22-2023 Creatinine [Mass/Vol] 0.83 mg/dL 0.55-1.02 [facility] Comment on above: The validity of the calculated GFR & GFRAA in patients over 70 years has not been determined. Clinical correlation is essential. Serum or plasma urea nitroge n measurement (mass/volume)Ordered By: Rosa Dave on 07-22-2023 Urea nitrogen [Mass/Vol] 20 mg/dL 7-18 [facility] Thin prep Papanicolaou smear with manual screeningOrdered By: Rosa Dave on 07-22-2023 Thin prep Papanicolaou smear with manual screening 3.7 g/dL 3.2-5.0 [facility] Thin prep Papanicolaou smear with manual screening 21 U/L 15-37 [facility] Thin prep Papanicolaou smear with manual screening 8 5-15 [facility] Albumin Elph [Mass/Vol]Order ed By: Mandy Asher on 06-27-2023 Albumin [Mass/Vol] 4.1 g/dL 2.9-4.4 [facility] Hemoglobin in reticulocytes (mass per reticulocyte)Ordered By: Mandy Asher on 06-27-2023 Hemoglobin (Reticulocytes) [Entitic mass] 37.9 pg 30-35 [facility] Laboratory - Chemistry and C hemistry - challengeOrdered By: Mandy Asher on 06-27-2023 Ferritin [Mass/Vol] 32 ng/mL 8-252 [facility] No Panel InformationOrdered By: Mandy Asher on 06-27-2023 Addendum Document Comment . [facility] Comment on above: The SPE pattern appe ars unremarkable. Evidence ofmonoclonal protein is not apparent.Performed at: [facility] [id number] [place], [place] [id number] Director: Mehran Pineda PhD, Phone: [id number]-[id number] 0.2 g/dL 0.0-0.4 [facility] Gpbwd-5-Zymtglbgp 0.6 g/dL 0.4-1.0 [facility] Free Triiodothyronine (T3) pg/dL 2.7 pg/mL 2.18-3.98 [facility] Gamma Globulins 0.7 g/dL 0.4-1.8 [facility] Immature Reticulocyte Fraction 19.40 % 3.00-15.90 [facility] Total Iron Binding Capacity 285 ug/dL 250-450 [facility] Protein Fractions Elph [Inte rp]Ordered By: Mandy Asher on 06-27-2023 Protein Fractions [Interp] Comment . [facility] Comment on above: Protein electrophore sis scan will follow via computer,mail, or hospitality director delivery. Reticulocytes Auto (Bld) [#/ Vol]Ordered By: Mandy Asher on 06-27-2023 Reticulocytes/100 RBC (Bld) 3.51 % 0.5-1.5 [facility] Serum albumin to globulin ra darryn by protein electrophoresisOrdered By: Mandy Asher on 06-27-2023 Albumin/Globulin Elph [Mass ratio] 1.8 0.7-1.7 [facility] Serum globulin measurement ( mass/volume)Ordered By: Mandy Asher on 06-27-2023 Globulin (S) [Mass/Vol] 2.3 g/dL 2.2-3.9 [facility] Serum or plasma beta globuli n measurement by electrophoresis (mass/volume)Ordered By: Mandy Asher on 06-27-2023 Beta globulin Elph [Mass/Vol] 0.9 g/dL 0.7-1.3 [facility] Serum or plasma protein mono clonal measurement by electrophoresis (mass/volume)Ordered By: Mandy Asher on 06-27-2023 Protein.monoclonal Elph [Mass/Vol] Not Observed g/dL Not Observed [facility] Thin prep Papanicolaou smear with manual screeningOrdered By: Mandy Asher on 06-27-2023 Thin prep Papanicolaou smear with manual screening 0.83 ng/dL 0.76-1.46 [facility] Total protein bloodOrdered B y: Mandy Asher on 06-27-2023 Protein [Mass/Vol] 6.4 g/dL 6.0-8.5 [facility] Absolute lymphocyte countOrd ered By: Mandy Asher on 06-26-2023 Lymphocytes Auto (Unsp spec) [#/Vol] 2.20 10*3/uL 0.83-4.51 [facility] Automated lymphocyte count a s percentage of total leukocytesOrdered By: Mandy Asher on 06-26-2023 Lymphocytes/100 WBC Auto (Unsp spec) 34.1 % 19-41 [facility] Basophil percentageOrdered B y: Mandy Asher on 06-26-2023 Basophils/100 WBC (Bld) 1.2 % 0-1 [facility] Bilirubin [Mass/Vol] 0.50 mg/dL 0.20-1.00 [facility] Comment on above: For patients on eltr ombopag therapy, use of [place] TBIL is not recommended. Chloride [Moles/Vol] 110 mmol/L 98-107 [facility] Eosinophils/100 WBC (Bld) 2.9 % 0-5 [facility] Glucose [Mass/Vol] 113 mg/dL 74-106 [facility] Comment on above: Fasting Glucose resu lt from 100 to 125 mg/dL suggests IMPAIRED HOMEOSTASIS per A.D.A. criteria. Hemoglobin (Bld) [Mass/Vol] 13.1 g/dL 12.0-15.0 [facility] Monocytes/100 WBC (Bld) 9.9 % 0-10 [facility] Neutrophils (Bld) [#/Vol] 3.3 10*3/uL 2.0-7.7 [facility] Neutrophils/100 WBC (Bld) 51.7 % 47-70 [facility] Potassium [Moles/Vol] 3.8 mmol/L 3.5-5.1 [facility] Protein [Mass/Vol] 6.6 g/dL 6.4-8.2 [facility] Sodium [Moles/Vol] 141 mmol/L 136-145 [facility] WBC (Bld) [#/Vol] 6.5 10*3/uL 4.4-11.0 [facility] Determination of erythrocyte mean corpuscular volume (MCV)Ordered By: Mandy Asher on 06-26-2023 MCV (RBC) [Entitic vol] 107.4 fL 81-99 [facility] Erythrocyte distribution wid th ratioOrdered By: Mandy Asher on 06-26-2023 Erythrocyte distribution width (RBC) [Ratio] 13.2 % 11.6-14.6 [facility] Erythrocyte distribution wid th standard deviationOrdered By: Mandy Asher on 06-26-2023 Erythrocyte distribution width (RBC) [Entitic vol] 52.5 fL 35.1-43.9 [facility] Hematocrit Auto (Bld) [Volum e fraction]Ordered By: Mandy Asher on 06-26-2023 Hematocrit (Bld) [Volume fraction] 40.8 % 37-47 [facility] Immature granulocytes/100 WB C Auto (Bld)Ordered By: Mandy Asher on 06-26-2023 Immature granulocytes/100 WBC (Bld) 0.200 % 0.0-0.9 [facility] Comment on above: IG% - Immature Granu locytes (promyelocytes, myelocytes and metamyelocytes) > 1% indicates that a LEFT SHIFT is Present. Laboratory - Chemistry and C hemistry - challengeOrdered By: Mandy Asher on 06-26-2023 Albumin/Globulin [Mass ratio] 1.2 {ratio} 0.9-2.4 [facility] ALP [Catalytic activity/Vol] 44 U/L 45-117 [facility] ALT [Catalytic activity/Vol] 31 U/L 13-56 [facility] CO2 [Moles/Vol] 25.0 mmol/L 21.0-32.0 [facility] Cobalamin (Vitamin B12) [Mass/Vol] 535 pg/mL 211-911 [facility] Globulin (S) [Mass/Vol] 3.0 g/dL 2.2-4.2 [facility] Urea nitrogen/Creatinine [Mass ratio] 27.4 mg/mg 10-20 [facility] Laboratory - Hematology and Cell countsOrdered By: Mandy Asher on 06-26-2023 MCH (RBC) [Entitic mass] 34.5 pg 27.0-32.0 [facility] MCHC (RBC) [Mass/Vol] 32.1 g/dL 32-36 [facility] Nucleated RBC/100 WBC (Bld) [Ratio] 0 % 0-5 [facility] Platelet mean volume (Bld) [Entitic vol] 10.5 fL 6.2-12.0 [facility] Platelets (Bld) [#/Vol] 230 10*3/uL 150-450 [facility] No Panel InformationOrdered By: Mandy Asher on 06-26-2023 Estimated GFR (MDRD) Amer 87 mL/min >60 [facility] Comment on above: GFR Calc Estimated GFR (MDRD) Non-Af Amer 72 mL/min >60 [facility] Comment on above: Non- GFR Calc Folate 64.60 ng/mL 3.1-55.4 [facility] Comment on above: Slight Hemolysis, Re sult may be falsely increased. RBC Auto (Bld) [#/Vol]Ordere d By: Mandy Asher on 06-26-2023 RBC (Bld) [#/Vol] 3.80 10*6/uL 4.2-5.4 [facility] Serum or plasma calcium hayley urement (mass/volume)Ordered By: Mandy Asher on 06-26-2023 Calcium [Mass/Vol] 8.2 mg/dL 8.5-10.1 [facility] Serum or plasma creatinine m easurement (mass/volume)Ordered By: Mandy Asher on 06-26-2023 Creatinine [Mass/Vol] 0.84 mg/dL 0.55-1.02 [facility] Comment on above: The validity of the calculated GFR & GFRAA in patients over 70 years has not been determined. Clinical correlation is essential. Serum or plasma thyroid stim ulating hormone (TSH) measurement (units/volume)Ordered By: Mandy Asher on 06-26-2023 TSH Qn 2.35 uIU/mL 0.358-3.74 [facility] Serum or plasma urea nitroge n measurement (mass/volume)Ordered By: Mandy Asher on 06-26-2023 Urea nitrogen [Mass/Vol] 23 mg/dL 7-18 [facility] Thin prep Papanicolaou smear with manual screeningOrdered By: Mandy Asher on 06-26-2023 Thin prep Papanicolaou smear with manual screening 3.6 g/dL 3.2-5.0 [facility] Thin prep Papanicolaou smear with manual screening 20 U/L 15-37 [facility] Thin prep Papanicolaou smear with manual screening 6 5-15 [facility] Absolute lymphocyte countOrd ered By: Rosa Dave on 05-27-2023 Lymphocytes Auto (Unsp spec) [#/Vol] 1.52 10*3/uL 0.83-4.51 [facility] Automated lymphocyte count a s percentage of total leukocytesOrdered By: Rosa Dave on 05-27-2023 Lymphocytes/100 WBC Auto (Unsp spec) 29.2 % 19-41 [facility] Basophil percentageOrdered B y: Rosa Dave on 05-27-2023 Basophils/100 WBC (Bld) 1.3 % 0-1 [facility] Bilirubin [Mass/Vol] 0.80 mg/dL 0.20-1.00 [facility] Comment on above: For patients on eltr ombopag therapy, use of [place] TBIL is not recommended. Chloride [Moles/Vol] 108 mmol/L 98-107 [facility] Eosinophils/100 WBC (Bld) 2.3 % 0-5 [facility] Glucose [Mass/Vol] 105 mg/dL 74-106 [facility] Comment on above: Fasting Glucose resu lt from 100 to 125 mg/dL suggests IMPAIRED HOMEOSTASIS per A.D.A. criteria. Hemoglobin (Bld) [Mass/Vol] 13.2 g/dL 12.0-15.0 [facility] Monocytes/100 WBC (Bld) 9.6 % 0-10 [facility] Neutrophils (Bld) [#/Vol] 3.0 10*3/uL 2.0-7.7 [facility] Neutrophils/100 WBC (Bld) 57.4 % 47-70 [facility] Potassium [Moles/Vol] 4.0 mmol/L 3.5-5.1 [facility] Protein [Mass/Vol] 6.7 g/dL 6.4-8.2 [facility] Sodium [Moles/Vol] 140 mmol/L 136-145 [facility] WBC (Bld) [#/Vol] 5.2 10*3/uL 4.4-11.0 [facility] Determination of erythrocyte mean corpuscular volume (MCV)Ordered By: Rosa Dave on 05-27-2023 MCV (RBC) [Entitic vol] 102.2 fL 81-99 [facility] Erythrocyte distribution wid th ratioOrdered By: Rosa Dave on 05-27-2023 Erythrocyte distribution width (RBC) [Ratio] 13.6 % 11.6-14.6 [facility] Erythrocyte distribution wid th standard deviationOrdered By: Rosa Dave on 05-27-2023 Erythrocyte distribution width (RBC) [Entitic vol] 51.8 fL 35.1-43.9 [facility] Hematocrit Auto (Bld) [Volum e fraction]Ordered By: Rosa Dave on 05-27-2023 Hematocrit (Bld) [Volume fraction] 41.0 % 37-47 [facility] Immature granulocytes/100 WB C Auto (Bld)Ordered By: Rosa Dave on 05-27-2023 Immature granulocytes/100 WBC (Bld) 0.200 % 0.0-0.9 [facility] Comment on above: IG% - Immature Granu locytes (promyelocytes, myelocytes and metamyelocytes) > 1% indicates that a LEFT SHIFT is Present. Laboratory - Chemistry and C hemistry - challengeOrdered By: Rosa Dave on 05-27-2023 Albumin/Globulin [Mass ratio] 1.1 {ratio} 0.9-2.4 [facility] ALP [Catalytic activity/Vol] 49 U/L 45-117 [facility] ALT [Catalytic activity/Vol] 53 U/L 13-56 [facility] CO2 [Moles/Vol] 27.0 mmol/L 21.0-32.0 [facility] Globulin (S) [Mass/Vol] 3.2 g/dL 2.2-4.2 [facility] Urea nitrogen/Creatinine [Mass ratio] 28.0 mg/mg 10-20 [facility] Laboratory - Hematology and Cell countsOrdered By: Rosa Dave on 05-27-2023 MCH (RBC) [Entitic mass] 32.9 pg 27.0-32.0 [facility] MCHC (RBC) [Mass/Vol] 32.2 g/dL 32-36 [facility] Nucleated RBC/100 WBC (Bld) [Ratio] 0 % 0-5 [facility] Platelets (Bld) [#/Vol] 227 10*3/uL 150-450 [facility] No Panel InformationOrdered By: Rosa Dave on 05-27-2023 Estimated GFR (MDRD) Amer 93 mL/min >60 [facility] Comment on above: GFR Calc Estimated GFR (MDRD) Non-Af Amer 77 mL/min >60 [facility] Comment on above: Non- GFR Calc Platelet mean volume Mtathew-Ec ker (Bld) [Entitic vol]Ordered By: Rosa Dave on 05-27-2023 Platelet mean volume (Bld) [Entitic vol] 11.0 fL 6.2-12.0 [facility] RBC Auto (Bld) [#/Vol]Ordere d By: Rosa Dave on 05-27-2023 RBC (Bld) [#/Vol] 4.01 10*6/uL 4.2-5.4 [facility] Serum or plasma calcium hayley urement (mass/volume)Ordered By: Rosa Dave on 05-27-2023 Calcium [Mass/Vol] 9.0 mg/dL 8.5-10.1 [facility] Serum or plasma creatinine m easurement (mass/volume)Ordered By: Rosa Dave on 05-27-2023 Creatinine [Mass/Vol] 0.78 mg/dL 0.55-1.02 [facility] Comment on above: The validity of the calculated GFR & GFRAA in patients over 70 years has not been determined. Clinical correlation is essential. Serum or plasma urea nitroge n measurement (mass/volume)Ordered By: Rosa Dave on 05-27-2023 Urea nitrogen [Mass/Vol] 22 mg/dL 7-18 [facility] Thin prep Papanicolaou smear with manual screeningOrdered By: Rosa Dave on 05-27-2023 Thin prep Papanicolaou smear with manual screening 3.5 g/dL 3.2-5.0 [facility] Thin prep Papanicolaou smear with manual screening 42 U/L 15-37 [facility] Thin prep Papanicolaou smear with manual screening 5 5-15 [facility] Absolute lymphocyte countOrd ered By: Rosa Dave on 04-08-2023 Lymphocytes Auto (Unsp spec) [#/Vol] 2.11 10*3/uL 0.83-4.51 [facility] Basophil percentageOrdered B y: Rosa Dave on 04-08-2023 Basophils/100 WBC (Bld) 1.0 % 0-1 [facility] Bilirubin [Mass/Vol] 0.60 mg/dL 0.20-1.00 [facility] Comment on above: For patients on eltr ombopag therapy, use of [place] TBIL is not recommended. Chloride [Moles/Vol] 107 mmol/L 98-107 [facility] Eosinophils/100 WBC (Bld) 1.4 % 0-5 [facility] Glucose [Mass/Vol] 103 mg/dL 74-106 [facility] Comment on above: Fasting Glucose resu lt from 100 to 125 mg/dL suggests IMPAIRED HOMEOSTASIS per A.D.A. criteria. Neutrophils (Bld) [#/Vol] 4.6 10*3/uL 2.0-7.7 [facility] Neutrophils/100 WBC (Bld) 60.2 % 47-70 [facility] Potassium [Moles/Vol] 3.6 mmol/L 3.5-5.1 [facility] Protein [Mass/Vol] 7.5 g/dL 6.4-8.2 [facility] Sodium [Moles/Vol] 141 mmol/L 136-145 [facility] WBC (Bld) [#/Vol] 7.7 10*3/uL 4.4-11.0 [facility] Blood erythrocytes count (nu mber/volume)Ordered By: Rosa Dave on 04-08-2023 RBC (Bld) [#/Vol] 4.60 10*6/uL 4.2-5.4 [facility] Blood hemoglobin measurement (mass/volume)Ordered By: Rosa Dave on 04-08-2023 Hemoglobin (Bld) [Mass/Vol] 14.9 g/dL 12.0-15.0 [facility] Blood lymphocytes/100 leukoc ytesOrdered By: Rosa Dave on 04-08-2023 Lymphocytes/100 WBC (Bld) 27.6 % 19-41 [facility] Blood monocytes/100 leukocyt esOrdered By: Rosa Dave on 04-08-2023 Monocytes/100 WBC (Bld) 9.4 % 0-10 [facility] Blood platelet mean volumeOr dered By: Rosa Dave on 04-08-2023 Platelet mean volume (Bld) [Entitic vol] 10.7 fL 6.2-12.0 [facility] Determination of erythrocyte mean corpuscular volume (MCV)Ordered By: Rosa Dave on 04-08-2023 MCV (RBC) [Entitic vol] 102.2 fL 81-99 [facility] Hematocrit Auto (Bld) [Volum e fraction]Ordered By: [facility] Jolie on 04-08-2023 Hematocrit (Bld) [Volume fraction] 47.0 % 37-47 [facility] Laboratory - Chemistry and C hemistry - challengeOrdered By: [facility] Jolie on 04-08-2023 ALP [Catalytic activity/Vol] 56 U/L 45-117 [facility] ALT [Catalytic activity/Vol] 27 U/L 13-56 [facility] CO2 [Moles/Vol] 30.0 mmol/L 21.0-32.0 [facility] Globulin (S) [Mass/Vol] 3.8 g/dL 2.2-4.2 [facility] Urea nitrogen/Creatinine [Mass ratio] 21.3 mg/mg 10-20 [facility] Laboratory - Hematology and Cell countsOrdered By: Rosanicole Dave on 04-08-2023 Erythrocyte distribution width (RBC) [Entitic vol] 52.2 fL 35.1-43.9 [facility] Erythrocyte distribution width (RBC) [Ratio] 13.8 % 11.6-14.6 [facility] Immature granulocytes/100 WBC (Bld) 0.400 % 0.0-0.9 [facility] Comment on above: IG% - Immature Granu locytes (promyelocytes, myelocytes and metamyelocytes) > 1% indicates that a LEFT SHIFT is Present. MCH (RBC) [Entitic mass] 32.4 pg 27.0-32.0 [facility] Nucleated RBC/100 WBC (Bld) [Ratio] 0 % 0-5 [facility] MCHC Auto (RBC) [Mass/Vol]Or dered By: Rosa Dave on 04-08-2023 MCHC (RBC) [Mass/Vol] 31.7 g/dL 32-36 [facility] No Panel InformationOrdered By: Rosa Dave on 04-08-2023 Estimated GFR (MDRD) Amer 72 mL/min >60 [facility] Comment on above: GFR Calc Estimated GFR (MDRD) Non-Af Amer 59 mL/min >60 [facility] Comment on above: Non- GFR Calc Platelets bldOrdered By: Thom Dave on 04-08-2023 Platelets (Bld) [#/Vol] 315 10*3/uL 150-450 [facility] Serum or plasma albumin hayley urement (mass/volume)Ordered By: Rosa Dave on 04-08-2023 Albumin [Mass/Vol] 3.7 g/dL 3.2-5.0 [facility] Serum or plasma albumin/glob ulin mass ratioOrdered By: Rosa Dave on 04-08-2023 Albumin/Globulin [Mass ratio] 1.0 {ratio} 0.9-2.4 [facility] Serum or plasma calcium hayley urement (mass/volume)Ordered By: Rosa Dave on 04-08-2023 Calcium [Mass/Vol] 9.5 mg/dL 8.5-10.1 [facility] Serum or plasma creatinine m easurement (mass/volume)Ordered By: Rosa Dave on 04-08-2023 Creatinine [Mass/Vol] 0.99 mg/dL 0.55-1.02 [facility] Comment on above: The validity of the calculated GFR & GFRAA in patients over 70 years has not been determined. Clinical correlation is essential. Serum or plasma urea nitroge n measurement (mass/volume)Ordered By: Rosa Dave on 04-08-2023 Urea nitrogen [Mass/Vol] 21 mg/dL 7-18 [facility] Thin prep Papanicolaou smear with manual screeningOrdered By: Rosa Dave on 04-08-2023 Thin prep Papanicolaou smear with manual screening 16 U/L 15-37 [facility] Thin prep Papanicolaou smear with manual screening 4 5-15 [facility] Basophil percentageOrdered B y: Rosa Dave on 02-07-2023 Bilirubin [Mass/Vol] 0.80 mg/dL 0.20-1.00 [facility] Comment on above: For patients on eltr ombopag therapy, use of [place] TBIL is not recommended. Chloride [Moles/Vol] 107 mmol/L 98-107 [facility] Glucose [Mass/Vol] 103 mg/dL 74-106 [facility] Comment on above: Fasting Glucose resu lt from 100 to 125 mg/dL suggests IMPAIRED HOMEOSTASIS per A.D.A. criteria. Potassium [Moles/Vol] 3.7 mmol/L 3.5-5.1 [facility] Protein [Mass/Vol] 7.1 g/dL 6.4-8.2 [facility] Sodium [Moles/Vol] 141 mmol/L 136-145 [facility] Laboratory - Chemistry and C hemistry - challengeOrdered By: Rosa Dave on 02-07-2023 ALP [Catalytic activity/Vol] 78 U/L 45-117 [facility] ALT [Catalytic activity/Vol] 33 U/L 13-56 [facility] CO2 [Moles/Vol] 30.0 mmol/L 21.0-32.0 [facility] Globulin (S) [Mass/Vol] 3.8 g/dL 2.2-4.2 [facility] Urea nitrogen/Creatinine [Mass ratio] 20.8 mg/mg 10-20 [facility] No Panel InformationOrdered By: Rosa Dave on 02-07-2023 Estimated GFR (MDRD) Amer 89 mL/min >60 [facility] Comment on above: GFR Calc Estimated GFR (MDRD) Non-Af Amer 74 mL/min >60 [facility] Comment on above: Non- GFR Calc Serum or plasma albumin hayley urement (mass/volume)Ordered By: Rosa Dave on 02-07-2023 Albumin [Mass/Vol] 3.3 g/dL 3.2-5.0 [facility] Serum or plasma albumin/glob ulin mass ratioOrdered By: Rosa Dave on 02-07-2023 Albumin/Globulin [Mass ratio] 0.9 {ratio} 0.9-2.4 [facility] Serum or plasma calcium hayley urement (mass/volume)Ordered By: Rosa Dave on 02-07-2023 Calcium [Mass/Vol] 9.1 mg/dL 8.5-10.1 [facility] Serum or plasma creatinine m easurement (mass/volume)Ordered By: Rosa Dave on 02-07-2023 Creatinine [Mass/Vol] 0.82 mg/dL 0.55-1.02 [facility] Comment on above: The validity of the calculated GFR & GFRAA in patients over 70 years has not been determined. Clinical correlation is essential. Serum or plasma urea nitroge n measurement (mass/volume)Ordered By: Rosa Dave on 02-07-2023 Urea nitrogen [Mass/Vol] 17 mg/dL 7-18 [facility] Thin prep Papanicolaou smear with manual screeningOrdered By: [facility] Jolie on 02-07-2023 Thin prep Papanicolaou smear with manual screening 24 U/L 15-37 [facility] Thin prep Papanicolaou smear with manual screening 4 5-15 [facility] Absolute lymphocyte countOrd ered By: Rosa Dave on 02-05-2023 Lymphocytes Auto (Unsp spec) [#/Vol] 2.16 10*3/uL 0.83-4.51 [facility] Basophil percentageOrdered B y: Rosa Dave on 02-05-2023 Basophils/100 WBC (Bld) 1.0 % 0-1 [facility] Eosinophils/100 WBC (Bld) 2.2 % 0-5 [facility] Neutrophils (Bld) [#/Vol] 2.8 10*3/uL 2.0-7.7 [facility] Neutrophils/100 WBC (Bld) 47.5 % 47-70 [facility] WBC (Bld) [#/Vol] 5.9 10*3/uL 4.4-11.0 [facility] Blood erythrocytes count (nu mber/volume)Ordered By: Rosa Dave on 02-05-2023 RBC (Bld) [#/Vol] 4.07 10*6/uL 4.2-5.4 [facility] RBC (Bld) [#/Vol] 3.98 10*6/uL 3.77-5.28 [facility] Blood hemoglobin measurement (mass/volume)Ordered By: Rosa Dave on 02-05-2023 Hemoglobin (Bld) [Mass/Vol] 13.6 g/dL 12.0-15.0 [facility] Blood lymphocytes/100 leukoc ytesOrdered By: [facility] Jolie on 02-05-2023 Lymphocytes/100 WBC (Bld) 36.9 % 19-41 [facility] Blood monocytes/100 leukocyt esOrdered By: Rosanicole Dave on 02-05-2023 Monocytes/100 WBC (Bld) 12.1 % 0-10 [facility] Blood platelet mean volumeOr dered By: Rosa Dave on 02-05-2023 Platelet mean volume (Bld) [Entitic vol] 11.2 fL 6.2-12.0 [facility] Determination of erythrocyte mean corpuscular volume (MCV)Ordered By: Rosa Dave on 02-05-2023 MCV (RBC) [Entitic vol] 105.9 fL 81-99 [facility] Erythrocyte lyecuzp-0-gvxsfy ate dehydrogenase (enzymatic activity/mass)Ordered By: Rosa Dave on 02-05-2023 G6PD (RBC) [Catalytic activity/Mass] 344 127-427 [facility] Comment on above: Result Units: U/10E1 2 RBCWhen decreased, G-6-PD, Quant. values are associated withacute hemolytic anemia when deficient individuals areexposed to oxidative stress, such as with certainmedications (e.g., primaquine), infection, or ingestion offava beans. Caution: In patients with acute hemolysis(e.g., abnormally low RBC values), testing for G-6-PD maybe falsely normal because older erythrocytes with a higherenzyme deficiency have been hemolyzed. Young erythrocytesand reticulocytes have normal or near-normal enzymeactivity. Normal values of G-6-PD may be measured forseveral weeks following a hemolytic event.Performed at: - [facility] [id number] [address] [id number] Director: Mehran Pineda PhD, Phone: [phone] at: - [facility] [address] [id number] Director: Tam Krueger MD, Phone: [phone] Hematocrit Auto (Bld) [Volum e fraction]Ordered By: Rosa Dave on 02-05-2023 Hematocrit (Bld) [Volume fraction] 43.1 % 37-47 [facility] Laboratory - Hematology and Cell countsOrdered By: Rosa Dave on 02-05-2023 Erythrocyte distribution width (RBC) [Entitic vol] 51.7 fL 35.1-43.9 [facility] Erythrocyte distribution width (RBC) [Ratio] 13.2 % 11.6-14.6 [facility] Immature granulocytes/100 WBC (Bld) 0.300 % 0.0-0.9 [facility] Comment on above: IG% - Immature Granu locytes (promyelocytes, myelocytes and metamyelocytes) > 1% indicates that a LEFT SHIFT is Present. MCH (RBC) [Entitic mass] 33.4 pg 27.0-32.0 [facility] Nucleated RBC/100 WBC (Bld) [Ratio] 0 % 0-5 [facility] MCHC Auto (RBC) [Mass/Vol]Or dered By: Rosa Dave on 02-05-2023 MCHC (RBC) [Mass/Vol] 31.6 g/dL 32-36 [facility] Platelets bldOrdered By: Thom Dave on 02-05-2023 Platelets (Bld) [#/Vol] 260 10*3/uL 150-450 [facility] Absolute lymphocyte countOrd ered By: Mandy Asher on 01-24-2023 Lymphocytes Auto (Unsp spec) [#/Vol] 2.87 10*3/uL 0.83-4.51 [facility] Basophil percentageOrdered B y: Mandy Asher on 01-24-2023 Basophils/100 WBC (Bld) 1.0 % 0-1 [facility] Bilirubin [Mass/Vol] 0.70 mg/dL 0.20-1.00 [facility] Comment on above: For patients on eltr ombopag therapy, use of [place] TBIL is not recommended. Chloride [Moles/Vol] 107 mmol/L 98-107 [facility] Eosinophils/100 WBC (Bld) 2.7 % 0-5 [facility] Glucose [Mass/Vol] 103 mg/dL 74-106 [facility] Comment on above: Fasting Glucose resu lt from 100 to 125 mg/dL suggests IMPAIRED HOMEOSTASIS per A.D.A. criteria. Neutrophils (Bld) [#/Vol] 4.7 10*3/uL 2.0-7.7 [facility] Neutrophils/100 WBC (Bld) 53.0 % 47-70 [facility] Potassium [Moles/Vol] 3.8 mmol/L 3.5-5.1 [facility] Protein [Mass/Vol] 7.2 g/dL 6.4-8.2 [facility] Sodium [Moles/Vol] 139 mmol/L 136-145 [facility] WBC (Bld) [#/Vol] 8.8 10*3/uL 4.4-11.0 [facility] Blood erythrocytes count (nu mber/volume)Ordered By: Mandy Asher on 01-24-2023 RBC (Bld) [#/Vol] 4.31 10*6/uL 4.2-5.4 [facility] Blood hemoglobin measurement (mass/volume)Ordered By: Mandy Asher on 01-24-2023 Hemoglobin (Bld) [Mass/Vol] 14.5 g/dL 12.0-15.0 [facility] Blood lymphocytes/100 leukoc ytesOrdered By: Mandy Asher on 01-24-2023 Lymphocytes/100 WBC (Bld) 32.5 % 19-41 [facility] Blood monocytes/100 leukocyt esOrdered By: Mandy Asher on 01-24-2023 Monocytes/100 WBC (Bld) 9.9 % 0-10 [facility] Blood platelet mean volumeOr dered By: Mandy Asher on 01-24-2023 Platelet mean volume (Bld) [Entitic vol] 11.0 fL 6.2-12.0 [facility] Determination of erythrocyte mean corpuscular volume (MCV)Ordered By: Mandy Asher on 01-24-2023 MCV (RBC) [Entitic vol] 105.8 fL 81-99 [facility] Hematocrit Auto (Bld) [Volum e fraction]Ordered By: Mandy Asher on 01-24-2023 Hematocrit (Bld) [Volume fraction] 45.6 % 37-47 [facility] Laboratory - Chemistry and C hemistry - challengeOrdered By: Mandy Asher on 01-24-2023 ALP [Catalytic activity/Vol] 56 U/L 45-117 [facility] ALT [Catalytic activity/Vol] 32 U/L 13-56 [facility] CO2 [Moles/Vol] 29.0 mmol/L 21.0-32.0 [facility] Globulin (S) [Mass/Vol] 3.8 g/dL 2.2-4.2 [facility] Urea nitrogen/Creatinine [Mass ratio] 25.4 mg/mg 10-20 [facility] Laboratory - Hematology and Cell countsOrdered By: Mandy Asher on 01-24-2023 Erythrocyte distribution width (RBC) [Entitic vol] 53.3 fL 35.1-43.9 [facility] Erythrocyte distribution width (RBC) [Ratio] 13.6 % 11.6-14.6 [facility] Immature granulocytes/100 WBC (Bld) 0.900 % 0.0-0.9 [facility] Comment on above: IG% - Immature Granu locytes (promyelocytes, myelocytes and metamyelocytes) > 1% indicates that a LEFT SHIFT is Present. MCH (RBC) [Entitic mass] 33.6 pg 27.0-32.0 [facility] Nucleated RBC/100 WBC (Bld) [Ratio] 0 % 0-5 [facility] MCHC Auto (RBC) [Mass/Vol]Or dered By: Mandy Asher on 01-24-2023 MCHC (RBC) [Mass/Vol] 31.8 g/dL 32-36 [facility] No Panel InformationOrdered By: Mandy Asher on 01-24-2023 Coxsackie Virus Type A Interpret Not Reportable [facility] Coxsackie Virus Type A(10) Antibody Not Reportable [facility] Coxsackie Virus Type A(16) Antibody Not Reportable [facility] Coxsackie Virus Type A(2) Antibody See comment [facility] Comment on above: TEST RESULTS LIMITSC oxsackie A IgG/IgM AntibodyCoxsackie A7 IgG 1:400 High titer Neg:<1:100[place] A9 IgG 1:400 High titer Neg:<1:100[place] A16 IgG 1:400 High titer Neg:<1:100[place] A24 IgG 1:200 High titer Neg:<1:100[place] A7 IgM 1:10 High titer Neg:<1:10[place] A9 IgM 1:10 High titer Neg:<1:10[place] A16 IgM 1:10 High titer Neg:<1:10[place]ox[place] A24 IgM 1:10 High titer Neg:<1:10 TESTING PERFORMED AT [facility]. ORIGINAL REPORT ON FILE IN LAB CONTAINS ADDITIONAL TEST SITE INFORMATION. Coxsackie Virus Type A(4) Antibody Not Reportable [facility] Coxsackie Virus Type A(7) Antibody Not Reportable [facility] Coxsackie Virus Type A(9) Antibody Not Reportable [facility] Estimated GFR (MDRD) Amer 88 mL/min >60 [facility] Comment on above: GFR Calc Estimated GFR (MDRD) Non-Af Amer 73 mL/min >60 [facility] Comment on above: Non- GFR Calc Thyroid Stimulating Hormone (TSH) 3.14 uIU/mL 0.358-3.74 [facility] Platelets bldOrdered By: Nohemi Asher on 01-24-2023 Platelets (Bld) [#/Vol] 244 10*3/uL 150-450 [facility] Serum coxsackievirus B1 anti body detectionOrdered By: Mandy Asher on 01-24-2023 Coxsackievirus B1 Ab Ql (S) See comment [facility] Comment on above: TEST RESULTS LIMITSC oxsackie B-1 Ab Negative Neg:<1:8[place]ox[place] B-2 Ab 1:16 High Neg:<1:8[place]ox[place]ie B-3 Ab Neg:<1:8Test not performed. Unable to perform test due to currentunavailability of reagents or discontinuation of test.Coxsackie B-4 Ab Negative Neg:<1:8[place] B-5 Ab Negative Neg:<1:8[place]ox[place] B-6 Ab Negative Neg:<1:8 TESTING PERFORMED AT [facility]. ORIGINAL REPORT ON FILE IN LAB CONTAINS ADDITIONAL TEST SITE INFORMATION. Serum coxsackievirus B2 anti body detectionOrdered By: Mandy Asher on 01-24-2023 Coxsackievirus B2 Ab Ql (S) Not Reportable [facility] Serum coxsackievirus B3 anti body detectionOrdered By: Mandy Asher on 01-24-2023 Coxsackievirus B3 Ab Ql (S) Not Reportable [facility] Serum coxsackievirus B4 anti body detectionOrdered By: Mandy Asher on 01-24-2023 Coxsackievirus B4 Ab Ql (S) Not Reportable [facility] Serum coxsackievirus B5 anti body detectionOrdered By: Mandy Asher on 01-24-2023 Coxsackievirus B5 Ab Ql (S) Not Reportable [facility] Serum coxsackievirus B6 anti body detectionOrdered By: Mandy Asher on 01-24-2023 Coxsackievirus B6 Ab Ql (S) Not Reportable [facility] Serum or plasma albumin hayley urement (mass/volume)Ordered By: Mandy Asher on 01-24-2023 Albumin [Mass/Vol] 3.4 g/dL 3.2-5.0 [facility] Serum or plasma albumin/glob ulin mass ratioOrdered By: Mandy Asher on 01-24-2023 Albumin/Globulin [Mass ratio] 0.9 {ratio} 0.9-2.4 [facility] Serum or plasma calcium hayley urement (mass/volume)Ordered By: Mandy Asher on 01-24-2023 Calcium [Mass/Vol] 8.7 mg/dL 8.5-10.1 [facility] Serum or plasma creatinine m easurement (mass/volume)Ordered By: Mandy Asher on 01-24-2023 Creatinine [Mass/Vol] 0.83 mg/dL 0.55-1.02 [facility] Comment on above: The validity of the calculated GFR & GFRAA in patients over 70 years has not been determined. Clinical correlation is essential. Serum or plasma urea nitroge n measurement (mass/volume)Ordered By: Mandy Asher on 01-24-2023 Urea nitrogen [Mass/Vol] 21 mg/dL 7-18 [facility] Thin prep Papanicolaou smear with manual screeningOrdered By: Mandy Asher on 01-24-2023 Thin prep Papanicolaou smear with manual screening 18 U/L 15-37 [facility] Thin prep Papanicolaou smear with manual screening 3 5-15 [facility] Thin prep Papanicolaou smear with manual screening See comment [facility] Comment on above: TEST RESULTS LIMITSL yme Total Antibody BRIGHT Negative NegativeLyme antibodies not detected. Reflex testing is not indicated.No laboratory evidence of infection with B. burgdorferi (Lyme disease).Negative results may occur in patients recently infected (less than or equal to 14 days) with B. burgdorferi. If recent infection is suspected, repeat testing on a new sample collected in 7 to 14 days is recommended. TESTING PERFORMED AT [facility]. ORIGINAL REPORT ON FILE IN LAB CONTAINS ADDITIONAL TEST SITE INFORMATION. Absolute lymphocyte countOrd ered By: Mandy Asher on 11-22-2022 Lymphocytes Auto (Unsp spec) [#/Vol] 1.64 10*3/uL 0.83-4.51 [facility] Basophil percentageOrdered B y: Mandy Asher on 11-22-2022 Basophils/100 WBC (Bld) 0.8 % 0-1 [facility] Bilirubin [Mass/Vol] 0.70 mg/dL 0.20-1.00 [facility] Comment on above: For patients on eltr ombopag therapy, use of [place] TBIL is not recommended. Chloride [Moles/Vol] 110 mmol/L 98-107 [facility] Eosinophils/100 WBC (Bld) 2.7 % 0-5 [facility] Glucose [Mass/Vol] 131 mg/dL 74-106 [facility] Comment on above: Fasting Glucose resu lt greater than or equal to 126 mg/dL suggests DIABETES MELLITUS per A.D.A. criteria. Neutrophils (Bld) [#/Vol] 2.5 10*3/uL 2.0-7.7 [facility] Neutrophils/100 WBC (Bld) 52.4 % 47-70 [facility] Potassium [Moles/Vol] 3.9 mmol/L 3.5-5.1 [facility] Protein [Mass/Vol] 6.8 g/dL 6.4-8.2 [facility] Sodium [Moles/Vol] 143 mmol/L 136-145 [facility] WBC (Bld) [#/Vol] 4.8 10*3/uL 4.4-11.0 [facility] Blood erythrocytes count (nu mber/volume)Ordered By: Mandy Asher on 11-22-2022 RBC (Bld) [#/Vol] 3.86 10*6/uL 4.2-5.4 [facility] Blood hemoglobin measurement (mass/volume)Ordered By: Mandy Asher on 11-22-2022 Hemoglobin (Bld) [Mass/Vol] 13.4 g/dL 12.0-15.0 [facility] Blood lymphocytes/100 leukoc ytesOrdered By: Mandy Asher on 11-22-2022 Lymphocytes/100 WBC (Bld) 34.3 % 19-41 [facility] Blood monocytes/100 leukocyt esOrdered By: Mandy Asher on 11-22-2022 Monocytes/100 WBC (Bld) 9.6 % 0-10 [facility] Blood platelet mean volumeOr dered By: Mandy Asher on 11-22-2022 Platelet mean volume (Bld) [Entitic vol] 10.7 fL 6.2-12.0 [facility] Determination of erythrocyte mean corpuscular volume (MCV)Ordered By: Mandy Asher on 11-22-2022 MCV (RBC) [Entitic vol] 106.7 fL 81-99 [facility] Erythrocyte sedimentation ra teOrdered By: Mandy Asher on 11-22-2022 ESR (Bld) [Velocity] 9 mm/h 0-30 [facility] Hematocrit Auto (Bld) [Volum e fraction]Ordered By: Mandy Asher on 11-22-2022 Hematocrit (Bld) [Volume fraction] 41.2 % 37-47 [facility] Laboratory - Chemistry and C hemistry - challengeOrdered By: Mandy Asher on 11-22-2022 ALP [Catalytic activity/Vol] 63 U/L 45-117 [facility] ALT [Catalytic activity/Vol] 52 U/L 13-56 [facility] CO2 [Moles/Vol] 28.0 mmol/L 21.0-32.0 [facility] Globulin (S) [Mass/Vol] 3.5 g/dL 2.2-4.2 [facility] Urea nitrogen/Creatinine [Mass ratio] 25.9 mg/mg 10-20 [facility] Laboratory - Hematology and Cell countsOrdered By: Mandy Asher on 11-22-2022 Erythrocyte distribution width (RBC) [Entitic vol] 53.7 fL 35.1-43.9 [facility] Erythrocyte distribution width (RBC) [Ratio] 14.0 % 11.6-14.6 [facility] Immature granulocytes/100 WBC (Bld) 0.200 % 0.0-0.9 [facility] Comment on above: IG% - Immature Granu locytes (promyelocytes, myelocytes and metamyelocytes) > 1% indicates that a LEFT SHIFT is Present. MCH (RBC) [Entitic mass] 34.7 pg 27.0-32.0 [facility] Nucleated RBC/100 WBC (Bld) [Ratio] 0 % 0-5 [facility] MCHC Auto (RBC) [Mass/Vol]Or dered By: Mandy Asher on 11-22-2022 MCHC (RBC) [Mass/Vol] 32.5 g/dL 32-36 [facility] No Panel InformationOrdered By: Mandy Asher on 11-22-2022 Estimated GFR (MDRD) Amer 85 mL/min >60 [facility] Comment on above: GFR Calc Estimated GFR (MDRD) Non-Af Amer 71 mL/min >60 [facility] Comment on above: Non- GFR Calc Thyroid Stimulating Hormone (TSH) 2.00 uIU/mL 0.358-3.74 [facility] Platelets bldOrdered By: Nohemi Asher on 11-22-2022 Platelets (Bld) [#/Vol] 236 10*3/uL 150-450 [facility] Serum or plasma albumin hayley urement (mass/volume)Ordered By: Mandy Asher on 11-22-2022 Albumin [Mass/Vol] 3.3 g/dL 3.2-5.0 [facility] Serum or plasma albumin/glob ulin mass ratioOrdered By: Mandy Asher on 11-22-2022 Albumin/Globulin [Mass ratio] 0.9 {ratio} 0.9-2.4 [facility] Serum or plasma calcium hayley urement (mass/volume)Ordered By: Mandy Asher on 11-22-2022 Calcium [Mass/Vol] 8.9 mg/dL 8.5-10.1 [facility] Serum or plasma creatinine m easurement (mass/volume)Ordered By: Mandy Asher on 11-22-2022 Creatinine [Mass/Vol] 0.85 mg/dL 0.55-1.02 [facility] Comment on above: The validity of the calculated GFR & GFRAA in patients over 70 years has not been determined. Clinical correlation is essential. Serum or plasma ferritin slade surement (mass/volume)Ordered By: Mandy Asher on 11-22-2022 Ferritin [Mass/Vol] 58 ng/mL 8-252 [facility] Serum or plasma urea nitroge n measurement (mass/volume)Ordered By: Mandy Asher on 11-22-2022 Urea nitrogen [Mass/Vol] 22 mg/dL 7-18 [facility] Thin prep Papanicolaou smear with manual screeningOrdered By: Mandy Asher on 11-22-2022 Thin prep Papanicolaou smear with manual screening 33 U/L 15-37 [facility] Thin prep Papanicolaou smear with manual screening 5 5-15 [facility] Absolute lymphocyte countOrd ered By: Rosa Dave on 10-28-2022 Lymphocytes Auto (Unsp spec) [#/Vol] 1.43 10*3/uL 0.83-4.51 [facility] Basophil percentageOrdered B y: Rosa Dave on 10-28-2022 Basophils/100 WBC (Bld) 0.6 % 0-1 [facility] Bilirubin [Mass/Vol] 0.80 mg/dL 0.20-1.00 [facility] Comment on above: For patients on eltr ombopag therapy, use of [place] TBIL is not recommended. Chloride [Moles/Vol] 106 mmol/L 98-107 [facility] Eosinophils/100 WBC (Bld) 0.6 % 0-5 [facility] Glucose [Mass/Vol] 102 mg/dL 74-106 [facility] Comment on above: Fasting Glucose resu lt from 100 to 125 mg/dL suggests IMPAIRED HOMEOSTASIS per A.D.A. criteria. Neutrophils (Bld) [#/Vol] 9.5 10*3/uL 2.0-7.7 [facility] Neutrophils/100 WBC (Bld) 81.4 % 47-70 [facility] Potassium [Moles/Vol] 3.9 mmol/L 3.5-5.1 [facility] Protein [Mass/Vol] 6.7 g/dL 6.4-8.2 [facility] Sodium [Moles/Vol] 140 mmol/L 136-145 [facility] WBC (Bld) [#/Vol] 11.6 10*3/uL 4.4-11.0 [facility] Blood erythrocytes count (nu mber/volume)Ordered By: Rosa Dave on 10-28-2022 RBC (Bld) [#/Vol] 3.95 10*6/uL 4.2-5.4 [facility] Blood hemoglobin measurement (mass/volume)Ordered By: Rosa Dave on 10-28-2022 Hemoglobin (Bld) [Mass/Vol] 13.7 g/dL 12.0-15.0 [facility] Blood lymphocytes/100 leukoc ytesOrdered By: Rosanicole Dave on 10-28-2022 Lymphocytes/100 WBC (Bld) 12.3 % 19-41 [facility] Blood monocytes/100 leukocyt esOrdered By: Rosa Dave on 10-28-2022 Monocytes/100 WBC (Bld) 4.4 % 0-10 [facility] Blood platelet mean volumeOr dered By: Rosa Dave on 10-28-2022 Platelet mean volume (Bld) [Entitic vol] 10.8 fL 6.2-12.0 [facility] Determination of erythrocyte mean corpuscular volume (MCV)Ordered By: Rosa Dave on 10-28-2022 MCV (RBC) [Entitic vol] 105.6 fL 81-99 [facility] Hematocrit Auto (Bld) [Volum e fraction]Ordered By: Rosa Dave on 10-28-2022 Hematocrit (Bld) [Volume fraction] 41.7 % 37-47 [facility] Laboratory - Chemistry and C hemistry - challengeOrdered By: Rosa Dave on 10-28-2022 ALP [Catalytic activity/Vol] 44 U/L 45-117 [facility] ALT [Catalytic activity/Vol] 42 U/L 13-56 [facility] CO2 [Moles/Vol] 28.0 mmol/L 21.0-32.0 [facility] Globulin (S) [Mass/Vol] 3.2 g/dL 2.2-4.2 [facility] Urea nitrogen/Creatinine [Mass ratio] 21.4 mg/mg 10-20 [facility] Laboratory - Hematology and Cell countsOrdered By: Rosa Dave on 10-28-2022 Erythrocyte distribution width (RBC) [Entitic vol] 55.1 fL 35.1-43.9 [facility] Erythrocyte distribution width (RBC) [Ratio] 14.1 % 11.6-14.6 [facility] Immature granulocytes/100 WBC (Bld) 0.700 % 0.0-0.9 [facility] Comment on above: IG% - Immature Granu locytes (promyelocytes, myelocytes and metamyelocytes) > 1% indicates that a LEFT SHIFT is Present. MCH (RBC) [Entitic mass] 34.7 pg 27.0-32.0 [facility] Nucleated RBC/100 WBC (Bld) [Ratio] 0 % 0-5 [facility] MCHC Auto (RBC) [Mass/Vol]Or dered By: Rosa Dave on 10-28-2022 MCHC (RBC) [Mass/Vol] 32.9 g/dL 32-36 [facility] No Panel InformationOrdered By: Rosa Dave on 10-28-2022 Estimated GFR (MDRD) Amer 81 mL/min >60 [facility] Comment on above: GFR Calc Estimated GFR (MDRD) Non-Af Amer 67 mL/min >60 [facility] Comment on above: Non- GFR Calc Platelets bldOrdered By: Thom Dave on 10-28-2022 Platelets (Bld) [#/Vol] 276 10*3/uL 150-450 [facility] Serum or plasma albumin hayley urement (mass/volume)Ordered By: Rosa Dave on 10-28-2022 Albumin [Mass/Vol] 3.5 g/dL 3.2-5.0 [facility] Serum or plasma albumin/glob ulin mass ratioOrdered By: Rosa Dave on 10-28-2022 Albumin/Globulin [Mass ratio] 1.1 {ratio} 0.9-2.4 [facility] Serum or plasma calcium hayley urement (mass/volume)Ordered By: Rosa Dave on 10-28-2022 Calcium [Mass/Vol] 8.7 mg/dL 8.5-10.1 [facility] Serum or plasma creatinine m easurement (mass/volume)Ordered By: Rosa Dave on 10-28-2022 Creatinine [Mass/Vol] 0.89 mg/dL 0.55-1.02 [facility] Comment on above: The validity of the calculated GFR & GFRAA in patients over 70 years has not been determined. Clinical correlation is essential. Serum or plasma urea nitroge n measurement (mass/volume)Ordered By: Rosa Dave on 10-28-2022 Urea nitrogen [Mass/Vol] 19 mg/dL 7-18 [facility] Thin prep Papanicolaou smear with manual screeningOrdered By: Rosa Dave on 10-28-2022 Thin prep Papanicolaou smear with manual screening 22 U/L 15-37 [facility] Thin prep Papanicolaou smear with manual screening 6 5-15 [facility] Absolute lymphocyte countOrd ered By: Dr. Dave on 08-20-2022 Lymphocytes Auto (Unsp spec) [#/Vol] 2.24 10*3/uL 0.83-4.51 [facility] Basophil percentageOrdered B y: Dr. Dave on 08-20-2022 Basophils/100 WBC (Bld) 0.7 % 0-1 [facility] Bilirubin [Mass/Vol] 0.50 mg/dL 0.20-1.00 [facility] Comment on above: For patients on eltr ombopag therapy, use of [place] TBIL is not recommended. Chloride [Moles/Vol] 109 mmol/L 98-107 [facility] Eosinophils/100 WBC (Bld) 2.5 % 0-5 [facility] Glucose [Mass/Vol] 86 mg/dL 74-106 [facility] Neutrophils (Bld) [#/Vol] 3.6 10*3/uL 2.0-7.7 [facility] Neutrophils/100 WBC (Bld) 53.7 % 47-70 [facility] Potassium [Moles/Vol] 3.8 mmol/L 3.5-5.1 [facility] Protein [Mass/Vol] 7.2 g/dL 6.4-8.2 [facility] Sodium [Moles/Vol] 140 mmol/L 136-145 [facility] WBC (Bld) [#/Vol] 6.7 10*3/uL 4.4-11.0 [facility] Blood erythrocytes count (nu mber/volume)Ordered By: Dr. Dave on 08-20-2022 RBC (Bld) [#/Vol] 3.96 10*6/uL 4.2-5.4 [facility] Blood hemoglobin measurement (mass/volume)Ordered By: Dr. Dave on 08-20-2022 Hemoglobin (Bld) [Mass/Vol] 13.7 g/dL 12.0-15.0 [facility] Blood lymphocytes/100 leukoc ytesOrdered By: Dr. Dave on 08-20-2022 Lymphocytes/100 WBC (Bld) 33.3 % 19-41 [facility] Blood monocytes/100 leukocyt esOrdered By: Dr. Dave on 08-20-2022 Monocytes/100 WBC (Bld) 9.4 % 0-10 [facility] Blood platelet mean volumeOr dered By: Dr. Dave on 08-20-2022 Platelet mean volume (Bld) [Entitic vol] 10.7 fL 6.2-12.0 [facility] Determination of erythrocyte mean corpuscular volume (MCV)Ordered By: Dr. Dave on 08-20-2022 MCV (RBC) [Entitic vol] 109.6 fL 81-99 [facility] Hematocrit Auto (Bld) [Volum e fraction]Ordered By: Dr. Dave on 08-20-2022 Hematocrit (Bld) [Volume fraction] 43.4 % 37-47 [facility] Laboratory - Chemistry and C hemistry - challengeOrdered By: Dr. Dave on 08-20-2022 ALP [Catalytic activity/Vol] 50 U/L 45-117 [facility] ALT [Catalytic activity/Vol] 31 U/L 13-56 [facility] CO2 [Moles/Vol] 27.0 mmol/L 21.0-32.0 [facility] Globulin (S) [Mass/Vol] 3.5 g/dL 2.2-4.2 [facility] Urea nitrogen/Creatinine [Mass ratio] 19.3 mg/mg 10-20 [facility] Laboratory - Hematology and Cell countsOrdered By: Dr. Dave on 08-20-2022 Erythrocyte distribution width (RBC) [Entitic vol] 58.8 fL 35.1-43.9 [facility] Erythrocyte distribution width (RBC) [Ratio] 14.6 % 11.6-14.6 [facility] Immature granulocytes/100 WBC (Bld) 0.400 % 0.0-0.9 [facility] Comment on above: IG% - Immature Granu locytes (promyelocytes, myelocytes and metamyelocytes) > 1% indicates that a LEFT SHIFT is Present. MCH (RBC) [Entitic mass] 34.6 pg 27.0-32.0 [facility] Nucleated RBC/100 WBC (Bld) [Ratio] 0 % 0-5 [facility] MCHC Auto (RBC) [Mass/Vol]Or dered By: Dr. Dave on 08-20-2022 MCHC (RBC) [Mass/Vol] 31.6 g/dL 32-36 [facility] No Panel InformationOrdered By: Dr. Dave on 08-20-2022 Estimated GFR (MDRD) Amer 88 mL/min >60 [facility] Comment on above: GFR Calc Estimated GFR (MDRD) Non-Af Amer 73 mL/min >60 [facility] Comment on above: Non- GFR Calc Platelets bldOrdered By: Dr. Dave on 08-20-2022 Platelets (Bld) [#/Vol] 256 10*3/uL 150-450 [facility] Serum or plasma albumin hayley urement (mass/volume)Ordered By: Dr. Dave on 08-20-2022 Albumin [Mass/Vol] 3.7 g/dL 3.2-5.0 [facility] Serum or plasma albumin/glob ulin mass ratioOrdered By: Dr. Dave on 08-20-2022 Albumin/Globulin [Mass ratio] 1.1 {ratio} 0.9-2.4 [facility] Serum or plasma calcium hayley urement (mass/volume)Ordered By: Dr. Dave on 08-20-2022 Calcium [Mass/Vol] 9.7 mg/dL 8.5-10.1 [facility] Serum or plasma creatinine m easurement (mass/volume)Ordered By: Dr. Dave on 08-20-2022 Creatinine [Mass/Vol] 0.83 mg/dL 0.55-1.02 [facility] Comment on above: The validity of the calculated GFR & GFRAA in patients over 70 years has not been determined. Clinical correlation is essential. Serum or plasma urea nitroge n measurement (mass/volume)Ordered By: Dr. Dave on 08-20-2022 Urea nitrogen [Mass/Vol] 16 mg/dL 7-18 [facility] Thin prep Papanicolaou smear with manual screeningOrdered By: Dr. Dave on 08-20-2022 Thin prep Papanicolaou smear with manual screening 18 U/L 15-37 [facility] Thin prep Papanicolaou smear with manual screening 4 5-15 [facility] Absolute lymphocyte countOrd ered By: Dr. Dave on 06-21-2022 Lymphocytes Auto (Unsp spec) [#/Vol] 2.06 10*3/uL 0.83-4.51 [facility] Basophil percentageOrdered B y: Dr. Dave on 06-21-2022 Basophils/100 WBC (Bld) 1.3 % 0-1 [facility] Bilirubin [Mass/Vol] 0.80 mg/dL 0.20-1.00 [facility] Comment on above: For patients on eltr ombopag therapy, use of [place] TBIL is not recommended. Chloride [Moles/Vol] 110 mmol/L 98-107 [facility] Eosinophils/100 WBC (Bld) 2.0 % 0-5 [facility] Glucose [Mass/Vol] 70 mg/dL 74-106 [facility] Neutrophils (Bld) [#/Vol] 2.6 10*3/uL 2.0-7.7 [facility] Neutrophils/100 WBC (Bld) 47.2 % 47-70 [facility] Potassium [Moles/Vol] 3.7 mmol/L 3.5-5.1 [facility] Protein [Mass/Vol] 7.0 g/dL 6.4-8.2 [facility] Sodium [Moles/Vol] 144 mmol/L 136-145 [facility] WBC (Bld) [#/Vol] 5.5 10*3/uL 4.4-11.0 [facility] Blood erythrocytes count (nu mber/volume)Ordered By: Dr. Dave on 06-21-2022 RBC (Bld) [#/Vol] 3.98 10*6/uL 4.2-5.4 [facility] Blood hemoglobin measurement (mass/volume)Ordered By: Dr. Dave on 06-21-2022 Hemoglobin (Bld) [Mass/Vol] 13.8 g/dL 12.0-15.0 [facility] Blood lymphocytes/100 leukoc ytesOrdered By: Dr. Dave on 06-21-2022 Lymphocytes/100 WBC (Bld) 37.7 % 19-41 [facility] Blood monocytes/100 leukocyt esOrdered By: Dr. Dave on 06-21-2022 Monocytes/100 WBC (Bld) 11.4 % 0-10 [facility] Blood platelet mean volumeOr dered By: Dr. Dave on 06-21-2022 Platelet mean volume (Bld) [Entitic vol] 11.2 fL 6.2-12.0 [facility] Determination of erythrocyte mean corpuscular volume (MCV)Ordered By: Dr. Dave on 06-21-2022 MCV (RBC) [Entitic vol] 109.3 fL 81-99 [facility] Hematocrit Auto (Bld) [Volum e fraction]Ordered By: Dr. Dave on 06-21-2022 Hematocrit (Bld) [Volume fraction] 43.5 % 37-47 [facility] Laboratory - Chemistry and C hemistry - challengeOrdered By: Dr. Dave on 06-21-2022 ALP [Catalytic activity/Vol] 43 U/L 45-117 [facility] ALT [Catalytic activity/Vol] 31 U/L 13-56 [facility] CO2 [Moles/Vol] 28.0 mmol/L 21.0-32.0 [facility] Globulin (S) [Mass/Vol] 3.3 g/dL 2.2-4.2 [facility] Urea nitrogen/Creatinine [Mass ratio] 20.7 mg/mg 10-20 [facility] Laboratory - Hematology and Cell countsOrdered By: Dr. Dave on 06-21-2022 Erythrocyte distribution width (RBC) [Entitic vol] 58.3 fL 35.1-43.9 [facility] Erythrocyte distribution width (RBC) [Ratio] 14.5 % 11.6-14.6 [facility] Immature granulocytes/100 WBC (Bld) 0.400 % 0.0-0.9 [facility] Comment on above: IG% - Immature Granu locytes (promyelocytes, myelocytes and metamyelocytes) > 1% indicates that a LEFT SHIFT is Present. MCH (RBC) [Entitic mass] 34.7 pg 27.0-32.0 [facility] Nucleated RBC/100 WBC (Bld) [Ratio] 0.4 % 0-5 [facility] MCHC Auto (RBC) [Mass/Vol]Or dered By: Dr. Dave on 06-21-2022 MCHC (RBC) [Mass/Vol] 31.7 g/dL 32-36 [facility] No Panel InformationOrdered By: Dr. Dave on 06-21-2022 Estimated GFR (MDRD) Amer 74 mL/min >60 [facility] Comment on above: GFR Calc Estimated GFR (MDRD) Non-Af Amer 61 mL/min >60 [facility] Comment on above: Non- GFR Calc Platelets bldOrdered By: Dr. Dave on 06-21-2022 Platelets (Bld) [#/Vol] 256 10*3/uL 150-450 [facility] Serum or plasma albumin hayley urement (mass/volume)Ordered By: Dr. Dave on 06-21-2022 Albumin [Mass/Vol] 3.7 g/dL 3.2-5.0 [facility] Serum or plasma albumin/glob ulin mass ratioOrdered By: Dr. Dave on 06-21-2022 Albumin/Globulin [Mass ratio] 1.1 {ratio} 0.9-2.4 [facility] Serum or plasma calcium hayley urement (mass/volume)Ordered By: Dr. Dave on 06-21-2022 Calcium [Mass/Vol] 8.8 mg/dL 8.5-10.1 [facility] Serum or plasma creatinine m easurement (mass/volume)Ordered By: Dr. Dave on 06-21-2022 Creatinine [Mass/Vol] 0.97 mg/dL 0.55-1.02 [facility] Comment on above: The validity of the calculated GFR & GFRAA in patients over 70 years has not been determined. Clinical correlation is essential. Serum or plasma urea nitroge n measurement (mass/volume)Ordered By: Dr. Dave on 06-21-2022 Urea nitrogen [Mass/Vol] 20 mg/dL 7-18 [facility] Thin prep Papanicolaou smear with manual screeningOrdered By: Dr. Dave on 06-21-2022 Thin prep Papanicolaou smear with manual screening 24 U/L 15-37 [facility] Thin prep Papanicolaou smear with manual screening 6 5-15 [facility] Absolute lymphocyte countOrd ered By: Dr. Dave on 04-22-2022 Lymphocytes Auto (Unsp spec) [#/Vol] 2.14 10*3/uL 0.83-4.51 [facility] Basophil percentageOrdered B y: Dr. Dave on 04-22-2022 Basophils/100 WBC (Bld) 1.1 % 0-1 [facility] Bilirubin [Mass/Vol] 0.60 mg/dL 0.20-1.00 [facility] Comment on above: For patients on eltr ombopag therapy, use of [place] TBIL is not recommended. Chloride [Moles/Vol] 108 mmol/L 98-107 [facility] Eosinophils/100 WBC (Bld) 2.4 % 0-5 [facility] Glucose [Mass/Vol] 97 mg/dL 74-106 [facility] Neutrophils (Bld) [#/Vol] 3.4 10*3/uL 2.0-7.7 [facility] Neutrophils/100 WBC (Bld) 53.3 % 47-70 [facility] Potassium [Moles/Vol] 4.1 mmol/L 3.5-5.1 [facility] Protein [Mass/Vol] 6.6 g/dL 6.4-8.2 [facility] Sodium [Moles/Vol] 141 mmol/L 136-145 [facility] WBC (Bld) [#/Vol] 6.3 10*3/uL 4.4-11.0 [facility] Blood erythrocytes count (nu mber/volume)Ordered By: Dr. Dave on 04-22-2022 RBC (Bld) [#/Vol] 4.06 10*6/uL 4.2-5.4 [facility] Blood hemoglobin measurement (mass/volume)Ordered By: Dr. Dave on 04-22-2022 Hemoglobin (Bld) [Mass/Vol] 13.6 g/dL 12.0-15.0 [facility] Blood lymphocytes/100 leukoc ytesOrdered By: Dr. Dave on 04-22-2022 Lymphocytes/100 WBC (Bld) 34.0 % 19-41 [facility] Blood monocytes/100 leukocyt esOrdered By: Dr. Dave on 04-22-2022 Monocytes/100 WBC (Bld) 8.9 % 0-10 [facility] Blood platelet mean volumeOr dered By: Dr. Dave on 04-22-2022 Platelet mean volume (Bld) [Entitic vol] 10.1 fL 6.2-12.0 [facility] Determination of erythrocyte mean corpuscular volume (MCV)Ordered By: Dr. Dave on 04-22-2022 MCV (RBC) [Entitic vol] 104.9 fL 81-99 [facility] Hematocrit Auto (Bld) [Volum e fraction]Ordered By: Dr. Dave on 04-22-2022 Hematocrit (Bld) [Volume fraction] 42.6 % 37-47 [facility] Laboratory - Chemistry and C hemistry - challengeOrdered By: Dr. Dave on 04-22-2022 ALP [Catalytic activity/Vol] 43 U/L 45-117 [facility] ALT [Catalytic activity/Vol] 36 U/L 13-56 [facility] CO2 [Moles/Vol] 28.0 mmol/L 21.0-32.0 [facility] Globulin (S) [Mass/Vol] 3.0 g/dL 2.2-4.2 [facility] Urea nitrogen/Creatinine [Mass ratio] 18.8 mg/mg 10-20 [facility] Laboratory - Hematology and Cell countsOrdered By: Dr. Dave on 04-22-2022 Erythrocyte distribution width (RBC) [Entitic vol] 57.4 fL 35.1-43.9 [facility] Erythrocyte distribution width (RBC) [Ratio] 14.8 % 11.6-14.6 [facility] Immature granulocytes/100 WBC (Bld) 0.300 % 0.0-0.9 [facility] Comment on above: IG% - Immature Granu locytes (promyelocytes, myelocytes and metamyelocytes) > 1% indicates that a LEFT SHIFT is Present. MCH (RBC) [Entitic mass] 33.5 pg 27.0-32.0 [facility] Nucleated RBC/100 WBC (Bld) [Ratio] 0 % 0-5 [facility] MCHC Auto (RBC) [Mass/Vol]Or dered By: Dr. Dave on 04-22-2022 MCHC (RBC) [Mass/Vol] 31.9 g/dL 32-36 [facility] No Panel InformationOrdered By: Dr. Dave on 04-22-2022 Estimated GFR (MDRD) Amer 74 mL/min >60 [facility] Comment on above: GFR Calc Estimated GFR (MDRD) Non-Af Amer 61 mL/min >60 [facility] Comment on above: Non- GFR Calc Platelets bldOrdered By: Dr. Dave on 04-22-2022 Platelets (Bld) [#/Vol] 258 10*3/uL 150-450 [facility] Serum or plasma albumin ahyley urement (mass/volume)Ordered By: Dr. Dave on 04-22-2022 Albumin [Mass/Vol] 3.6 g/dL 3.2-5.0 [facility] Serum or plasma albumin/glob ulin mass ratioOrdered By: Dr. Dave on 04-22-2022 Albumin/Globulin [Mass ratio] 1.2 {ratio} 0.9-2.4 [facility] Serum or plasma calcium hayley urement (mass/volume)Ordered By: Dr. Dave on 04-22-2022 Calcium [Mass/Vol] 8.9 mg/dL 8.5-10.1 [facility] Serum or plasma creatinine m easurement (mass/volume)Ordered By: Dr. Dave on 04-22-2022 Creatinine [Mass/Vol] 0.96 mg/dL 0.55-1.02 [facility] Comment on above: The validity of the calculated GFR & GFRAA in patients over 70 years has not been determined. Clinical correlation is essential. Serum or plasma urea nitroge n measurement (mass/volume)Ordered By: Dr. Dave on 04-22-2022 Urea nitrogen [Mass/Vol] 18 mg/dL 7-18 [facility] Thin prep Papanicolaou smear with manual screeningOrdered By: Dr. Dave on 04-22-2022 Thin prep Papanicolaou smear with manual screening 20 U/L 15-37 [facility] Thin prep Papanicolaou smear with manual screening 5 5-15 [facility] Absolute lymphocyte counton 02-12-2022 Lymphocytes Auto (Unsp spec) [#/Vol] 1.75 10*3/uL 0.83-4.51 [facility] Work Phone: [phone] Basophil percentageon 2021 Basophils/100 WBC (Bld) 1.6 % 0-1 [facility] Work Phone: [phone] Bilirubin [Mass/Vol] 0.30 mg/dL 0.20-1.00 [facility] Work Phone: [phone] Comment on above: For patients on eltr ombopag therapy, use of [place] TBIL is not recommended. Chloride [Moles/Vol] 111 mmol/L 98-107 [facility] Work Phone: [phone] Eosinophils/100 WBC (Bld) 4.1 % 0-5 [facility] Work Phone: Glucose [Mass/Vol] 97 mg/dL 74-106 [facility] Work Phone: Neutrophils (Bld) [#/Vol] 2.4 10*3/uL 2.0-7.7 [facility] Work Phone: Neutrophils/100 WBC (Bld) 49.5 % 47-70 [facility] Work Phone: [phone] Potassium [Moles/Vol] 4.1 mmol/L 3.5-5.1 [facility] Work Phone: Protein [Mass/Vol] 6.9 g/dL 6.4-8.2 [facility] Work Phone: Sodium [Moles/Vol] 143 mmol/L 136-145 [facility] Work Phone: WBC (Bld) [#/Vol] 4.9 10*3/uL 4.4-11.0 [facility] Work Phone: Blood erythrocytes count (nu mber/volume)on 02-12-2022 RBC (Bld) [#/Vol] 4.15 10*6/uL 4.2-5.4 [facility] Work Phone: Blood hemoglobin measurement (mass/volume)on 02-12-2022 Hemoglobin (Bld) [Mass/Vol] 13.6 g/dL 12.0-15.0 [facility] Work Phone: Blood lymphocytes/100 leukoc yteson 02-12-2022 Lymphocytes/100 WBC (Bld) 35.8 % 19-41 [facility] Work Phone: Blood monocytes/100 leukocyt eson 02-12-2022 Monocytes/100 WBC (Bld) 8.8 % 0-10 [facility] Work Phone: Blood platelet mean volumeon 02-12-2022 Platelet mean volume (Bld) [Entitic vol] 10.9 fL 6.2-12.0 [facility] Work Phone: Determination of erythrocyte mean corpuscular volume (MCV)on 02-12-2022 MCV (RBC) [Entitic vol] 102.4 fL 81-99 [facility] Work Phone: Erythrocyte sedimentation ra kim 02-12-2022 ESR (Bld) [Velocity] 3 mm/h 0-30 [facility]: Hematocrit Auto (Bld) [Volum e fraction]on 02-12-2022 Hematocrit (Bld) [Volume fraction] 42.5 % 37-47 [facility] Work Phone: Laboratory - Chemistry and C hemistry - challengeon 02-12-2022 ALP [Catalytic activity/Vol] 53 U/L 45-117 [facility] Work Phone: [phone] ALT [Catalytic activity/Vol] 32 U/L 13-56 [facility] Work Phone: CO2 [Moles/Vol] 26.0 mmol/L 21.0-32.0 [facility] Work Phone: Globulin (S) [Mass/Vol] 3.4 g/dL 2.2-4.2 [facility] Work Phone: Urea nitrogen/Creatinine [Mass ratio] 30.3 mg/mg 10-20 [facility] Work Phone: Laboratory - Hematology and Cell countson 02-12-2022 Erythrocyte distribution width (RBC) [Entitic vol] 49.8 fL 35.1-43.9 [facility] Work Phone: Erythrocyte distribution width (RBC) [Ratio] 13.1 % 11.6-14.6 [facility] Work Phone: Immature granulocytes/100 WBC (Bld) 0.200 % 0.0-0.9 [facility] Work Phone: [phone] Comment on above: IG% - Immature Granu locytes (promyelocytes, myelocytes and metamyelocytes) > 1% indicates that a LEFT SHIFT is Present. MCH (RBC) [Entitic mass] 32.8 pg 27.0-32.0 [facility] Work Phone: Nucleated RBC/100 WBC (Bld) [Ratio] 0 % 0-5 [facility] Work Phone: MCHC Auto (RBC) [Mass/Vol]on 02-12-2022 MCHC (RBC) [Mass/Vol] 32.0 g/dL 32-36 [facility] Work Phone: No Panel Informationon 02-12 Anti-Nuclear Antibody Screen Negative Negative [facility] Work Phone: Comment on above: Performed at: [facility] [address] [id number] Director: Mehran Pineda PhD, Phone: [phone] Estimated GFR (MDRD) Amer 97 mL/min >60 [facility] Work Phone: Comment on above: GFR Calc Estimated GFR (MDRD) Non-Af Amer 80 mL/min >60 [facility] Work Phone: Comment on above: Non- GFR Calc Hepatitis B Surface Antigen Non-Reactive Nonreactive [facility] Work Phone: Hepatitis C Antibody Non-Reactive Nonreactive [facility] Work Phone: Comment on above: Non Reactive: < 0.8 Equivocal: >/= 0.8 to < 1.0 Reactive: >/= 1.0The CDC recommends that a reactive/equivocal HCV antibody result be followed up by the HCV Nucleic Acid Amplificationtest (693063) Platelets bldon 02-12-2022 Platelets (Bld) [#/Vol] 233 10*3/uL 150-450 [facility] Work Phone: Qualitative QuantiFERON-TB g old in tube teston 02-12-2022 M. tuberculosis tuberculin stim IFN-g Ql (Bld) 0.12 IU/mL . [facility] Work Phone: Serum cyclic citrullinated p eptide IgG antibody assay (units/volume)on 02-12-2022 Cyclic citrullinated peptide IgG Qn 11 units 0-19 [facility] Work Phone: Comment on above: Negative <20 Weak po sitive 20 - 39 Moderate positive 40 - 59 Strong positive >59Performed at: - [facility] [id number] [place], [place] [id number] Director: Mehran Pineda PhD, Phone: [phone] at: [facility] [id number] Director: Tam Krueger MD, Phone: [phone] Serum hepatitis B virus surf tosha antibody IgG detectionon 02-12-2022 HBV surface IgG Ql (S) Non-Reactive [facility] Work Phone: Comment on above: Non Reactive: Incons istent with immunity less than <10 mIU/mL Reactive: Consistent with immunity greater than or equal to 10 mIU/mL Serum or plasma C reactive p rotein measurement (mass/volume)on 02-12-2022 CRP [Mass/Vol] mg/L 0.0-3.0 [facility] Work Phone: Comment on above: C-Reactive Protein ( CRP) provides useful information for thediagnosis, therapy and monitoring of inflammatory processesand associated diseases. For the evaluation of Relative Riskfor Cardiovascular Disease, a High Sensitivity CRP (HSCRP)should be ordered. Serum or plasma albumin hayley urement (mass/volume)on 02-12-2022 Albumin [Mass/Vol] 3.5 g/dL 3.2-5.0 [facility] Work Phone: Serum or plasma albumin/glob ulin mass ratioon 02-12-2022 Albumin/Globulin [Mass ratio] 1.0 {ratio} 0.9-2.4 [facility] Work Phone: Serum or plasma calcium hayley urement (mass/volume)on 02-12-2022 Calcium [Mass/Vol] 8.7 mg/dL 8.5-10.1 [facility] Work Phone: Serum or plasma creatinine m easurement (mass/volume)on 02-12-2022 Creatinine [Mass/Vol] 0.76 mg/dL 0.55-1.02 [facility] Work Phone: Comment on above: The validity of the calculated GFR & GFRAA in patients over 70 years has not been determined. Clinical correlation is essential. Serum or plasma urea nitroge n measurement (mass/volume)on 02-12-2022 Urea nitrogen [Mass/Vol] 23 mg/dL 7-18 [facility] Work Phone: Serum rheumatoid factor dete ctionon 02-12-2022 Rheumatoid factor Ql (S) < 10.0 IU/mL <15 [facility] Work Phone: Thin prep Papanicolaou smear with manual screeningon 02-12-2022 Thin prep Papanicolaou smear with manual screening 21 U/L 15-37 [facility] Work Phone: Thin prep Papanicolaou smear with manual screening 6 5-15 [facility] Work Phone: Thin prep Papanicolaou smear with manual screening Comment . [facility] Work Phone: Comment on above: QuantiFERON-TB Gold Plus is a qualitative indirect test forM tuberculosis infection (including disease) and isintended for use in conjunction with risk assessment,radiography, and other medical and diagnostic evaluations.The QuantiFERON-TB Gold Plus result is determined bysubtracting the Nil value from either TB antigen (Ag)value. The Mitogen tube serves as a control for the test. Thin prep Papanicolaou smear with manual screening 0.13 IU/mL . [facility] Work Phone: Thin prep Papanicolaou smear with manual screening 0.07 IU/mL . [facility] Work Phone: Thin prep Papanicolaou smear with manual screening > 10.00 IU/mL . [facility] Work Phone: Thin prep Papanicolaou smear with manual screening Negative Negative [facility] Work Phone: Comment on above: No response to M tub erculosis antigens detected.Infection with M tuberculosis is unlikely, but high riskindividuals should be considered for additional testing(ATS/IDSA/CDC Clinical Practice Guidelines, 2017). Thereference range is an Antigen minus Nil result of <0.35IU/mL.The specimen received for QuantiFERON testing was incubatedby the ordering institution. Specific procedures outlinedin our Directory of Services and in the package insert forthe QuantiFERON Gold (In Tube) test must be followed toenable for proper stimulation of cells for the productionof interferon gamma. Chemiluminescence immunoassaymethodology Basophil percentageon 2021 Bilirubin [Mass/Vol] 0.60 mg/dL 0.20-1.00 [facility] Work Phone: Comment on above: For patients on eltr ombopag therapy, use of [place] TBIL is not recommended. Chloride [Moles/Vol] 111 mmol/L 98-107 [facility] Work Phone: Glucose [Mass/Vol] 92 mg/dL 74-106 [facility] Work Phone: Potassium [Moles/Vol] 3.6 mmol/L 3.5-5.1 [facility] Work Phone: Protein [Mass/Vol] 6.6 g/dL 6.4-8.2 [facility] Work Phone: Sodium [Moles/Vol] 141 mmol/L 136-145 [facility] Work Phone: WBC (Bld) [#/Vol] 4.6 10*3/uL 4.4-11.0 [facility] Work Phone: Blood erythrocytes count (nu mber/volume)on 11-12-2021 RBC (Bld) [#/Vol] 3.92 10*6/uL 4.2-5.4 [facility] Work Phone: Blood hemoglobin measurement (mass/volume)on 11-12-2021 Hemoglobin (Bld) [Mass/Vol] 13.1 g/dL 12.0-15.0 [facility] [facility] Work Phone: Blood platelet mean volumeon 11-12-2021 Platelet mean volume (Bld) [Entitic vol] 10.5 fL 6.2-12.0 [facility] Work Phone: Determination of erythrocyte mean corpuscular volume (MCV)on 11-12-2021 MCV (RBC) [Entitic vol] 103.3 fL 81-99 [facility] Work Phone: Hematocrit Auto (Bld) [Volum e fraction]on 11-12-2021 Hematocrit (Bld) [Volume fraction] 40.5 % 37-47 [facility] Work Phone: Laboratory - Chemistry and C hemistry - challengeon 11-12-2021 Albumin [Mass/Vol] 3.6 g/dL 2.9-4.4 [facility] Work Phone: ALP [Catalytic activity/Vol] 42 U/L 45-117 [facility] Work Phone: ALT [Catalytic activity/Vol] 26 U/L 13-56 [facility] Work Phone: CO2 [Moles/Vol] 22.0 mmol/L 21.0-32.0 [facility] Work Phone: Globulin (S) [Mass/Vol] 3.2 g/dL 2.2-4.2 [facility] Work Phone: Urea nitrogen/Creatinine [Mass ratio] 18.2 mg/mg 10-20 [facility] Work Phone: Laboratory - Hematology and Cell countson 11-12-2021 Erythrocyte distribution width (RBC) [Entitic vol] 49.4 fL 35.1-43.9 [facility] Work Phone: Erythrocyte distribution width (RBC) [Ratio] 13.0 % 11.6-14.6 [facility] Work Phone: MCH (RBC) [Entitic mass] 33.4 pg 27.0-32.0 [facility] Work Phone: MCHC Auto (RBC) [Mass/Vol]on 11-12-2021 MCHC (RBC) [Mass/Vol] 32.3 g/dL 32-36 [facility] Work Phone: No Panel Informationon 11-12 Addendum Document Comment . [facility] Work Phone: Comment on above: The SPE pattern appe ars unremarkable. Evidence ofmonoclonal protein is not apparent. Ixipm-9-Osohskvey 0.2 g/dL 0.0-0.4 [facility] Work Phone: Vwxcl-4-Gjnfzewgg 0.6 g/dL 0.4-1.0 [facility] Work Phone: Anti-Nuclear Antibody Screen Negative Negative [facility] Work Phone: Comment on above: Performed at: [facility] [employer] [address] [id number] Director: Mehran Pindea PhD, Phone: [phone] Estimated GFR (MDRD) Amer 114 mL/min >60 [facility] Work Phone: Comment on above: GFR Calc Estimated GFR (MDRD) Non-Af Amer 95 mL/min >60 [facility] Work Phone: Comment on above: Non- GFR Calc Gamma Globulins 0.7 g/dL 0.4-1.8 [facility] Work Phone: Immunoglobulin E 14 IU/mL 6-495 [facility] Work Phone: Parathyroid Hormone (Intact) 77.7 pg/mL 18.4-80.1 [facility] Work Phone: Platelets bldon 11-12-2021 Platelets (Bld) [#/Vol] 246 10*3/uL 150-450 [facility] Work Phone: Protein Fractions Elph [Inte rp]on 11-12-2021 Protein Fractions [Interp] Comment . [facility] Work Phone: Comment on above: Protein electrophore sis scan will follow via computer,mail, or hospitality director delivery. Serum albumin to globulin ra darryn by protein electrophoresison 11-12-2021 Albumin/Globulin Elph [Mass ratio] 1.5 0.7-1.7 [facility] Work Phone: Serum globulin measurement ( mass/volume)on 11-12-2021 Globulin (S) [Mass/Vol] 2.4 g/dL 2.2-3.9 [facility] Work Phone: Serum or plasma C reactive p rotein measurement (mass/volume)on 11-12-2021 CRP [Mass/Vol] mg/L 0.0-3.0 [facility] Work Phone: Comment on above: C-Reactive Protein ( CRP) provides useful information for thediagnosis, therapy and monitoring of inflammatory processesand associated diseases. For the evaluation of Relative Riskfor Cardiovascular Disease, a High Sensitivity CRP (HSCRP)should be ordered. Serum or plasma IgA measurem ent (mass/volume)on 11-12-2021 IgA [Mass/Vol] 286 mg/dL 87-352 [facility] Work Phone: Comment on above: Performed at: [facility] [employer] [address] [id number] Director: Mehran Pineda PhD, Phone: [phone] at: [facility] [id number] Director: Tam Krueger MD, Phone: [phone] Serum or plasma IgG measurem ent (mass/volume)on 11-12-2021 IgG [Mass/Vol] 713 mg/dL [phone] [facility] Work Phone: Serum or plasma albumin hayley urement (mass/volume)on 11-12-2021 Albumin [Mass/Vol] 3.4 g/dL 3.2-5.0 [facility] Work Phone: Serum or plasma albumin/glob ulin mass ratioon 11-12-2021 Albumin/Globulin [Mass ratio] 1.1 {ratio} 0.9-2.4 [facility] Work Phone: Serum or plasma beta globuli n measurement by electrophoresis (mass/volume)on 11-12-2021 Beta globulin Elph [Mass/Vol] 0.9 g/dL 0.7-1.3 [facility] Work Phone: Serum or plasma calcium hayley urement (mass/volume)on 11-12-2021 Calcium [Mass/Vol] 8.6 mg/dL 8.5-10.1 [facility] Work Phone: Serum or plasma creatinine m easurement (mass/volume)on 11-12-2021 Creatinine [Mass/Vol] 0.66 mg/dL 0.55-1.02 [facility] Work Phone: Comment on above: The validity of the calculated GFR & GFRAA in patients over 70 years has not been determined. Clinical correlation is essential. Serum or plasma urea nitroge n measurement (mass/volume)on 11-12-2021 Urea nitrogen [Mass/Vol] 12 mg/dL 7-18 [facility] Work Phone: Serum rheumatoid factor dete ctionon 11-12-2021 Rheumatoid factor Ql (S) < 10.0 IU/mL <15 [facility] Work Phone: Thin prep Papanicolaou smear with manual screeningon 11-12-2021 Thin prep Papanicolaou smear with manual screening 21 U/L 15-37 [facility] Work Phone: Thin prep Papanicolaou smear with manual screening 8 5-15 [facility] Work Phone: Thin prep Papanicolaou smear with manual screening See comment [facility] Work Phone: Comment on above: Result: Not Observed Total protein bloodon 2021 Protein [Mass/Vol] 6.0 g/dL 6.0-8.5 [facility] Work Phone: Absolute lymphocyte counton 09-28-2021 Lymphocytes Auto (Unsp spec) [#/Vol] 1.59 10*3/uL 0.83-4.51 [facility] Work Phone: Basophil percentageon 2021 Basophils/100 WBC (Bld) 1.5 % 0-1 [facility] Work Phone: Bilirubin [Mass/Vol] 0.80 mg/dL 0.20-1.00 [facility] Work Phone: Comment on above: For patients on eltr ombopag therapy, use of Dimension [place] TBIL is not recommended. Chloride [Moles/Vol] 110 mmol/L 98-107 [facility] Work [facility]: Eosinophils/100 WBC (Bld) 2.1 % 0-5 [facility] Work Phone: [phone] Glucose [Mass/Vol] 125 mg/dL 74-106 [facility] Work Phone: Comment on above: Fasting Glucose resu lt from 100 to 125 mg/dL suggests IMPAIRED HOMEOSTASIS per A.D.A. criteria. Neutrophils (Bld) [#/Vol] 2.5 10*3/uL 2.0-7.7 [facility] Work Phone: [phone] Neutrophils/100 WBC (Bld) 51.5 % 47-70 [facility] Work Phone: [phone] Potassium [Moles/Vol] 3.6 mmol/L 3.5-5.1 [facility] Work Phone: [phone] Protein [Mass/Vol] 6.6 g/dL 6.4-8.2 [facility] Work Phone: [phone] Sodium [Moles/Vol] 140 mmol/L 136-145 [facility] Work Phone: [phone] WBC (Bld) [#/Vol] 4.8 10*3/uL 4.4-11.0 [facility] Work Phone: [phone] Blood erythrocytes count (nu mber/volume)on 09-28-2021 RBC (Bld) [#/Vol] 4.12 10*6/uL 4.2-5.4 [facility] Work Phone: Blood hemoglobin measurement (mass/volume)on 09-28-2021 Hemoglobin (Bld) [Mass/Vol] 13.7 g/dL 12.0-15.0 [facility] Work Phone: Blood lymphocytes/100 leukoc yteson 09-28-2021 Lymphocytes/100 WBC (Bld) 33.2 % 19-41 [facility] Work Phone: [phone] Blood monocytes/100 leukocyt eson 09-28-2021 Monocytes/100 WBC (Bld) 11.5 % 0-10 [facility] Work Phone: Blood platelet mean volumeon 09-28-2021 Platelet mean volume (Bld) [Entitic vol] 11.4 fL 6.2-12.0 [facility] Work Phone: Determination of erythrocyte mean corpuscular volume (MCV)on 09-28-2021 MCV (RBC) [Entitic vol] 101.9 fL 81-99 [facility] Work Phone: Hematocrit Auto (Bld) [Volum e fraction]on 09-28-2021 Hematocrit (Bld) [Volume fraction] 42.0 % 37-47 [facility] Work Phone: Laboratory - Chemistry and C hemistry - challengeon 09-28-2021 ALP [Catalytic activity/Vol] 40 U/L 45-117 [facility] Work Phone: ALT [Catalytic activity/Vol] 29 U/L 13-56 [facility] Work Phone: CO2 [Moles/Vol] 25.0 mmol/L 21.0-32.0 [facility] Work Phone: Globulin (S) [Mass/Vol] 3.2 g/dL 2.2-4.2 [facility] Work Phone: Magnesium [Mass/Vol] 2.2 mg/dL 1.6-2.6 [facility] Work Phone: Urea nitrogen/Creatinine [Mass ratio] 24.3 mg/mg 10-20 [facility] Work Phone: Laboratory - Hematology and Cell countson 09-28-2021 Erythrocyte distribution width (RBC) [Entitic vol] 50.8 fL 35.1-43.9 [facility] Work Phone: [phone] Erythrocyte distribution width (RBC) [Ratio] 13.2 % 11.6-14.6 [facility] Work Phone: [phone] Immature granulocytes/100 WBC (Bld) 0.200 % 0.0-0.9 [facility] Work Phone: Comment on above: IG% - Immature Granu locytes (promyelocytes, myelocytes and metamyelocytes) > 1% indicates that a LEFT SHIFT is Present. MCH (RBC) [Entitic mass] 33.3 pg 27.0-32.0 [facility] Work Phone: Nucleated RBC/100 WBC (Bld) [Ratio] 0 % 0-5 [facility] Work Phone: MCHC Auto (RBC) [Mass/Vol]on 09-28-2021 MCHC (RBC) [Mass/Vol] 32.6 g/dL 32-36 [facility] Work Phone: No Panel Informationon 09-28 Estimated GFR (MDRD) Amer 89 mL/min >60 [facility] Work Phone: Comment on above: GFR Calc Estimated GFR (MDRD) Non-Af Amer 74 mL/min >60 [facility] Work Phone: Comment on above: Non- GFR Calc Platelets bldon 09-28-2021 Platelets (Bld) [#/Vol] 225 10*3/uL 150-450 [facility] Work Phone: Serum or plasma albumin hayley urement (mass/volume)on 09-28-2021 Albumin [Mass/Vol] 3.4 g/dL 3.2-5.0 [facility] Work Phone: Serum or plasma albumin/glob ulin mass ratioon 09-28-2021 Albumin/Globulin [Mass ratio] 1.1 {ratio} 0.9-2.4 [facility] Work Phone: Serum or plasma calcium hayley urement (mass/volume)on 09-28-2021 Calcium [Mass/Vol] 8.6 mg/dL 8.5-10.1 [facility] Work Phone: Serum or plasma creatinine m easurement (mass/volume)on 09-28-2021 Creatinine [Mass/Vol] 0.82 mg/dL 0.55-1.02 [facility] Work Phone: Comment on above: The validity of the calculated GFR & GFRAA in patients over 70 years has not been determined. Clinical correlation is essential. Serum or plasma urea nitroge n measurement (mass/volume)on 09-28-2021 Urea nitrogen [Mass/Vol] 20 mg/dL 7-18 [facility] Work Phone: Thin prep Papanicolaou smear with manual screeningon 09-28-2021 Thin prep Papanicolaou smear with manual screening 20 U/L 15-37 [facility] Work Phone: Thin prep Papanicolaou smear with manual screening 5 5-15 [facility] Work Phone: Basophil percentageon 2021 Creatinine [Mass/Vol] 0.7 mg/dL 0.55-1.02 [facility] Work Phone: No Panel Informationon 08-21 Bedside Estimated GFR (eGFR) > 60.0000 mL/min >60 [facility] Work Phone: XR WRIST LEFT 3 VIEWSon XR WRIST LEFT 3 VIEWS EXAM: XR WRIST LEF T 4 VIEWS,, 07/09/2021 13:09 PM COMPARISON: Radiographs [...] healing of the ulnar styloid fracture. Normal [facility] Absolute lymphocyte counton 06-18-2021 Lymphocytes Auto (Unsp spec) [#/Vol] 0.36 10*3/uL 0.83-4.51 [facility] Work Phone: Basophil percentageon 2021 Basophil percentage 0 SEEN /hpf [facility] Work Phone: Basophils/100 WBC (Bld) 0.3 % 0-1 [facility] Work Phone: Bilirubin [Mass/Vol] 1.60 mg/dL 0.20-1.00 [facility] Work Phone: [phone] Comment on above: For patients on eltr ombopag therapy, use of [place] TBIL is not recommended. Chloride [Moles/Vol] 112 mmol/L 98-107 [facility] Work Phone: Eosinophils/100 WBC (Bld) 0.1 % 0-5 [facility] Work Phone: Glucose [Mass/Vol] 166 mg/dL 74-106 [facility] Work Phone: Comment on above: Fasting Glucose resu lt greater than or equal to 126 mg/dL suggests DIABETES MELLITUS per A.D.A. criteria. Neutrophils (Bld) [#/Vol] 10.7 10*3/uL 2.0-7.7 [facility] Work Phone: [phone] Neutrophils/100 WBC (Bld) 92.5 % 47-70 [facility] Work Phone: [phone] Potassium [Moles/Vol] 3.3 mmol/L 3.5-5.1 [facility] Work Phone: [phone] Protein [Mass/Vol] 8.0 g/dL 6.4-8.2 [facility] Work Phone: Sodium [Moles/Vol] 141 mmol/L 136-145 [facility] Work Phone: WBC (Bld) [#/Vol] 11.5 10*3/uL 4.4-11.0 [facility] Work Phone: Bilirubin Test strip Ql (U)o n 06-18-2021 Bilirubin Ql (U) Negative Negative [facility] Work Phone: Blood erythrocytes count (nu mber/volume)on 06-18-2021 RBC (Bld) [#/Vol] 4.99 10*6/uL 4.2-5.4 [facility] Work Phone: Blood hemoglobin measurement (mass/volume)on 06-18-2021 Hemoglobin (Bld) [Mass/Vol] 16.7 g/dL 12.0-15.0 [facility] Work Phone: Blood lymphocytes/100 leukoc yteson 06-18-2021 Lymphocytes/100 WBC (Bld) 3.1 % 19-41 [facility] Work Phone: Blood monocytes/100 leukocyt eson 06-18-2021 Monocytes/100 WBC (Bld) 3.6 % 0-10 [facility] Work Phone: Blood platelet mean volumeon 06-18-2021 Platelet mean volume (Bld) [Entitic vol] 10.4 fL 6.2-12.0 [facility] Work Phone: Determination of erythrocyte mean corpuscular volume (MCV)on 06-18-2021 MCV (RBC) [Entitic vol] 99.4 fL 81-99 [facility] Work Phone: Hematocrit Auto (Bld) [Volum e fraction]on 06-18-2021 Hematocrit (Bld) [Volume fraction] 49.6 % 37-47 [facility] Work Phone: Ketones Test strip Ql (U)on 06-18-2021 Ketones Ql (U) Negative Negative [facility] Work Phone: Laboratory - Chemistry and C hemistry - challengeon 06-18-2021 ALP [Catalytic activity/Vol] 66 U/L 45-117 [facility] Work Phone: ALT [Catalytic activity/Vol] 28 U/L 13-56 [facility] Work Phone: CO2 [Moles/Vol] 22.0 mmol/L 21.0-32.0 [facility] Work Phone: [phone] Globulin (S) [Mass/Vol] 4.2 g/dL 2.2-4.2 [facility] Work Phone: [phone] Lipase [Catalytic activity/Vol] 52 U/L 73-393 [facility] Work Phone: [phone] Urea nitrogen/Creatinine [Mass ratio] 28.5 mg/mg 10-20 [facility] Work Phone: Laboratory - Hematology and Cell countson 06-18-2021 Erythrocyte distribution width (RBC) [Entitic vol] 48.2 fL 35.1-43.9 [facility] Work Phone: Erythrocyte distribution width (RBC) [Ratio] 13.1 % 11.6-14.6 [facility] Work Phone: Immature granulocytes/100 WBC (Bld) 0.400 % 0.0-0.9 [facility] Work Phone: Comment on above: IG% - Immature Granu locytes (promyelocytes, myelocytes and metamyelocytes) > 1% indicates that a LEFT SHIFT is Present. MCH (RBC) [Entitic mass] 33.5 pg 27.0-32.0 [facility] Work Phone: Nucleated RBC/100 WBC (Bld) [Ratio] 0 % 0-5 [facility] Work Phone: MCHC Auto (RBC) [Mass/Vol]on 06-18-2021 MCHC (RBC) [Mass/Vol] 33.7 g/dL 32-36 [facility] Work Phone: Mucus LM Ql (Urine sed)on Mucus Ql (Urine sed) 0 SEEN /hpf [facility] Work Phone: Nitrite Test strip Ql (U)on 06-18-2021 Nitrite Ql (U) Negative Negative [facility] Work Phone: No Panel Informationon 06-18 Estimated Creatinine Clearance Calc 48.10 ml/min [facility] Work Phone: Estimated GFR (MDRD) Amer 73 mL/min >60 [facility] Work Phone: Comment on above: GFR Calc Estimated GFR (MDRD) Non-Af Amer 60 mL/min >60 [facility] Work Phone: Comment on above: Non- GFR Calc Platelets bldon 06-18-2021 Platelets (Bld) [#/Vol] 280 10*3/uL 150-450 [facility] Work Phone: Protein Test strip Ql (U)on 06-18-2021 Protein Ql (U) 15 mg/dl Negative [facility] Work Phone: Serum or plasma albumin hayley urement (mass/volume)on 06-18-2021 Albumin [Mass/Vol] 3.8 g/dL 3.2-5.0 [facility] Work Phone: Serum or plasma albumin/glob ulin mass ratioon 06-18-2021 Albumin/Globulin [Mass ratio] 0.9 {ratio} 0.9-2.4 [facility] Work Phone: Serum or plasma calcium hayley urement (mass/volume)on 06-18-2021 Calcium [Mass/Vol] 9.2 mg/dL 8.5-10.1 [facility] Work Phone: Serum or plasma creatinine m easurement (mass/volume)on 06-18-2021 Creatinine [Mass/Vol] 0.98 mg/dL 0.55-1.02 [facility] Work Phone: Comment on above: The validity of the calculated GFR & GFRAA in patients over 70 years has not been determined. Clinical correlation is essential. Serum or plasma urea nitroge n measurement (mass/volume)on 06-18-2021 Urea nitrogen [Mass/Vol] 28 mg/dL 7-18 [facility] Work Phone: Squamous epithelial cells de tection in urine sediment by light microscopyon 06-18-2021 Epithelial cells.squamous LM Ql (Urine sed) 0 SEEN /hpf [facility] Work Phone: Thin prep Papanicolaou smear with manual screeningon 06-18-2021 Thin prep Papanicolaou smear with manual screening 16 U/L 15-37 [facility] Work Phone: Thin prep Papanicolaou smear with manual screening 7 5-15 [facility] Work Phone: Urine blood detectionon 06-05 RBC Ql (U) Negative Negative [facility] Work Phone: RBC Ql (U) 0 SEEN /hpf [facility] Work Phone: Urine clarityon 06-18-2021 Clarity (U) Clear Clear [facility] Work Phone: Urine color determinationon 06-18-2021 Color (U) Yellow Yellow [facility] Work Phone: Urine glucose detectionon Glucose Ql (U) Normal mg/dl Normal [facility] Work Phone: Urine leukocyte esterase det ection by dipstickon 06-18-2021 Leukocyte esterase Test strip Ql (U) Negative Negative [facility] Work Phone: Urine pHon 06-18-2021 pH (U) 7.0 [pH] [facility] Work Phone: Urine sediment bacteria coun t by microscopy (number/high power field)on 06-18-2021 Bacteria LM.HPF (Urine sed) [#/Area] 0 /[HPF] None Seen [facility] Work Phone: Urine specific gravity measu rementon 06-18-2021 Specific gravity (U) [Rel density] 1.005 [facility] Work Phone: Urobilinogen Auto test strip Ql (U)on 06-18-2021 Urobilinogen Ql (U) Normal mg/dl Normal [facility] Work Phone: XR WRIST LEFT 3 VIEWSon 05-06 XR WRIST LEFT 3 VIEWS EXAM: XR WRIST LEF T 4 VIEWS,, 05/24/2021 10:24 AM COMPARISON: Compared [...] fixation hardware in the distal radius. Normal [facility] XR WRIST LEFT 3 VIEWSon 04-05 [...] surface alignment. Prior ulnar styloid fracture. Normal [facility] IG PAP [id number] 08-19-2017 Diagnosis: See Ref Lab Report [facility] Comment on above: Order Comment: austinjosé miguel huff pap scant cellularity Performed By: #### [id number] ####FAIZA [employer] [id number] [place] [id number] Pathology (EM)on 08-12-2017 Pathology ([facility]) FINAL GYNECOLOGIC CYTOLOGY [id number] N ADEQUACYSatisfactory for EvaluationEndocervical component absent but acceptable due to patient age/historyGENERAL CATEGORIZATIONNegative for Intraepithelial Lesion or MalignancyCOMMENTAtroph ic cellular pattern.CLINICAL HISTORYComment: No LMP provided.SPECIMEN(A) SCREENING CERVICAL/ENDOCERVICAL LIQUID-BASED PAPPerformed at [facility], [address] [place], [place] [address]Screened by: Signed Out by: TAWANDA INGRAM Brass Burnisher Reported: 08/18/2017 Normal [facility] Healthcare Comment on above: Performed By: #### G YN ####[facility] [address] [place] [address] HPV High Riskon 04-25-2017 HPV High Risk [facility] Comment on above: Performed By: #### [id number] ####FAIZA [employer] [address] [place] [address] IG PAP [id number] 04-25-2017 Diagnosis: See Ref Lab Report [facility] Comment on above: Performed By: #### [id number] ####FAIZA [employer] [id number] [id number] Pathology (EM)on 04-22-2017 Pathology ([facility]) FINAL GYNECOLOGIC CYTOLOGY [id number] N ADEQUACYUnsatisfactory for Evaluation. Specimen is processed and examined, butunsatisfactory for evaluation of epithelial abnormality due to:Scant cellularity.GENERAL CATEGORIZATIONUnsatisfa ctory for evaluation.COMMENTHigh Risk HPV was ordered and performed at [facility] Laboratory. Results arereported below in this report. A negative result is a normal result. Apositive result is an abnormal result.HPV HIGH RISK NEGATIVE: The results of this test indicate the patient'sspecimen is NEGATIVE for the following high-risk HPV types:16/18/31/33/35/39 /45/51/52/56/58/59/66/6 8. RELATED LABORATORY RESULTSOrdered by: Roby Date: 04/22/2017 Ord Time: 20:18Test Collected Result Abnormal Range Units SpecimenName D&T TypeHPV Negative NA MSCRNA, 7HighRiskThe HPV test detects E6/E7 viral messenger RNA (mRNA) high-risk HPV mtrzxufcc76,18,31,33,35 ,39,45,51,55,58,59,66, and 68 which are associated with cervicalcancer and its precursor lesions. However, cross-reactions with othergenotypes may occur. Results should be correlated with cytologic andhistologic findings. Sensitivity may be affected by cellularity of specimen.CLINICAL HISTORYComment: No LMP provided.SPECIMEN(A) SCREENING CERVICAL/ENDOCERVICAL LIQUID-BASED PAPPerformed at [facility], [address] [place], [place] [address]Screened by: Signed Out by: TAWANDA INGRAM Brass Burnisher Reported: 04/24/2017 Normal [facility] Healthcare Comment on above: Performed By: #### G YN ####[facility] [address] [place] [address] Microbiology: Culture, Urine on 12-15-2016 [facility] . [facility] Work Phone: Lab Report: (P) Urinalysis, Completeon 12-13-2016 Albumin Ql (U) Negative Negative [facility] [facility] Work Phone: Bilirubin Ql (U) Negative Negative Pulmonar y [facility] Work Phone: Ketones mass conc (U) Negative Negative Pul monary [facility] Work Phone: Nitrite Urine Negative Invalid Interpretation Code Negative [facility] Work Phone: Occult Blood, urine Negative Invalid Interpretation Code Negative [facility] Work Phone: OCCULT BLOOD-UR Negative Negative [facility] Work Phone: pH (U) 6.5 [pH] 5.0 - 8.0 [facility] Work Phone: specific gravity, urine 1.010 1.002-1.030 [facility] Work Phone: Urine, bilirubin presence Negative Invalid Interpretation Code Negative [facility] Work Phone: Urine, clarity Clear Clear [facility] Work Phone: Urine, color Yellow Yellow [facility] Work Phone: Urine, glucose presence Normal mg/dl Normal [facility] Work Phone: Urine, ketones presence Negative Invalid Interpretation Code Negative [facility] Work Phone: Urine, leukocyte esterase presence 25 High Negative [facility] Work Phone: Urine, pH 6.5 [pH] Invalid Interpretation Code 5.0 - 8.0 [facility] Work Phone: Urine, protein Negative Invalid Interpretation Code Negative [facility] Work Phone: urobilinogen, urine, by dipstick 1 mg/dL High Normal [facility] Work Phone: Lab Report: Basic Metabolic Profile (BMP)on 12-13-2016 Anion gap 4 mmol/L Low 5-15 [facility] Work Phone: Anion gap molar conc 4 mmol/L Low 5-15 Pulm on[facility] [employer] [facility] Work Phone: BUN/Creatinine Ratio 29.9 RATIO High 10-20 [facility]m on[facility] Work Phone: Calcium 9.1 mg/dL 8.5-10.1 [facility] Work Phone: Chloride 104 mmol/L 98-107 [facility] Work Phone: CO2 32.0 mmol/L Invalid Interpretation Code 21.0-32.0 [facility] Work Phone: CO2 ppres (BldV) 32.0 mmol/L 21.0-32.0 Pulmona ry [facility] Work Phone: Creatinine 0.77 mg/dL 0.55-1.02 [facility] Work Phone: eGFR (non-black) 98 mL/min/{1.73_m2} Invalid Interpretation Code >60 [facility] Work Phone: eGFR (non-black) 81 mL/min/{1.73_m2} >60 [facility] [place] [facility] Work Phone: EST GFR - AA 98 mL/min >60 [facility] Work Phone: Glucose 98 mg/dL Invalid Interpretation Code 70-110 [facility] Work Phone: Glucose mass conc 98 mg/dL 70-110 [facility] Work Phone: Potassium 3.9 mmol/L 3.5-5.1 [facility] Work Phone: Sodium 140 mmol/L 136-145 [facility] Work Phone: Urea nitrogen 23 mg/dL High 7-18 [facility] Work Phone: Lab Report: CBC-Complete Blo od Cnt No Diffon 12-13-2016 Erythrocyte distribution width Ratio (RBC) 47.3 fL High 35.1-43.9 [facility] Work Phone: Erythrocyte distribution width Ratio (RBC) 12.8 % 11.6-14.6 [facility] Work Phone: Erythrocytes (RBC) 4.17 10*6/uL Low 4.2-5.4 Pulm on[facility] Work Phone: Hematocrit (HCT) 42.2 % Invalid Interpretation Code 37-47 [facility] Work Phone: Hematocrit Volume Fraction (Bld) 42.2 % 37-47 [facility] Work Phone: Hemoglobin (HGB) 13.5 g/dL 12.0-15.0 [facility]mon[facility] Work Phone: MCH 32.4 pg High 27.0-32.0 [facility] Work Phone: MCH Entitic mass (RBC) 32.4 pg High 27.0-32.0 Pu lmonary [facility] Work Phone: MCHC 32.0 G/GL Invalid Interpretation Code 32-36 [facility] Work Phone: MCHC mass conc (RBC) 32.0 G/GL 32-36 [facility]m on[facility] Work Phone: MCV 101.2 fL High 81-99 [facility] Work Phone: MCV Entitic volume (RBC) 101.2 fL High 81-99 [facility] Work Phone: Platelet mean volume Entitic volume (Bld) 10.3 fL 6.2-12.0 [facility] Work Phone: Platelets 257 10*3/mm3 Invalid Interpretation Code 150-450 [facility] Work Phone: Platelets #/vol (Bld) 257 10*3/mm3 150-450 P ulmonary [facility] Work Phone: PMV by Rick 10.3 fL Invalid Interpretation Code 6.2-12.0 [facility] Work Phone: RBC #/vol (Bld) 4.17 10*6/uL Low 4.2-5.4 Pulmona [facility] Work Phone: RDW-CA 12.8 % Invalid Interpretation Code 11.6-14.6 [facility] Work Phone: red blood cell distribution width, size density 47.3 fL High 35.1-43.9 [facility] Work Phone: WBC #/vol (Bld) 5.8 10*3/uL 4.4-11.0 [facility]mon[facility] Work Phone: WBC (Leukocytes) 5.8 10*3/uL Invalid Interpretation Code 4.4-11.0 [facility] Work Phone: Lab Report: Urinalysis, Comp leteon 12-13-2016 Mucus Ql (Urine sed) 1+ [facility]m on[facility] Work Phone: Urine, bacteria in sediment RARE /hpf None Seen [facility] Work Phone: Urine, epithelial cells in sediment 0-5 SEEN 5-10 [facility] Phone: Urine, erythrocytes in sediment by volume 0-5 SEEN 0-5 [facility] [place] Phone: Urine, mucus presence in sediment 1+ Invalid Interpretation Code [facility] Phone: WBC #/vol (Bld) 0 SEEN 0-5 [facility] Work Phone: WBC (Leukocytes) 0 SEEN Invalid Interpretation Code 0-5 [facility] [place] Phone: Office Visit: Spine Visiton 08-05-2016 Documentation of current medications (procedure) Done Invalid Interpretation Code [facility] Work Phone: Protein mass conc Done Pulmona [facility] Work Phone: Tobacco smoking status WYIS Never [facility] Work Phone: Tobacco smoking status [facility] Former smoker [facility] [employer] [facility] Work Phone: Tobacco use [facility] Former smoker Invalid Interpretation Code [facility] Work Phone: Office Visit: COPD and asthm aon 07-19-2016 Fall risk assessment Yes [facility] Work Phone: Vital Signs Date Time Vital Sign Value Performing Clinician Facility 11-30-2024 14:24-0400 Body mass index (BMI) [Ratio] 21.96 kg/m2 Melody Fernandez MD Work Phone: [facility] 11-30-2024 14:24-0400 Body weight 58.06 kg Melody Fernandez MD Work Phone: [facility] 11-30-2024 14:24-0400 Diastolic blood pressure 82 mm[Hg] Melody Fernandez MD Work Phone: [facility] 11-30-2024 14:24-0400 Heart rate 81 /min Melody Fernandez MD Work Phone: [facility] 11-30-2024 14:24-0400 Respiratory rate 16 /min Melody Fernandez MD Work Phone: [facility] 11-30-2024 14:24-0400 SaO2% (BldA) [Mass fraction] 94 % Melody Fernandez MD Work Phone: [facility] 11-30-2024 14:24-0400 Systolic blood pressure 140 mm[Hg] Melody Fernandez MD Work Phone: [facility] 07-22-2024 13:29-0400 Body height 162.[address] Mandy Asher MD Work Phone: [facility] 07-22-2024 13:29-0400 Body mass index (BMI) [Ratio] 22.8 kg/m2 Dr. Mandy Asher MD Work Phone: [facility] 07-22-2024 13:29-0400 Body weight 60.[address] Mandy Asher MD Work Phone: [facility] 06-17-2024 10:32-0500 Body mass index (BMI) [Ratio] 21.96 kg/m2 Melody Fernandez MD Work Phone: [facility] 06-17-2024 10:32-0500 Body weight 58.06 kg Melody Fernandez MD Work Phone: [facility] 06-17-2024 10:32-0500 Diastolic blood pressure 70 mm[Hg] Melody Fernandez MD Work Phone: [facility] 06-17-2024 10:32-0500 Heart rate 78 /min Melody Fernandez MD Work Phone: [facility] 06-17-2024 10:32-0500 Respiratory rate 17 /min Melody Fernandez MD Work Phone: [facility] 06-17-2024 10:32-0500 SaO2% (BldA) [Mass fraction] 95 % Melody Fernandez MD Work Phone: [facility] 06-17-2024 10:32-0500 Systolic blood pressure 100 mm[Hg] Melody Fernandez MD Work Phone: [facility] 02-17-2024 12:54-0400 Body mass index (BMI) [Ratio] 22.3 kg/m2 Melody Fernandez MD Work Phone: [facility] 02-17-2024 12:54-0400 Body temperature 97.7 [degF] Melody Fernandez MD Work Phone: [facility] 02-17-2024 12:54-0400 Body weight 58.97 kg Melody Fernandez MD Work Phone: [facility] 02-17-2024 12:54-0400 Diastolic blood pressure 66 mm[Hg] Melody Fernandez MD Work Phone: [facility] 02-17-2024 12:54-0400 Heart rate 89 /min Melody Fernandez MD Work Phone: [facility] 02-17-2024 12:54-0400 SaO2% (BldA) [Mass fraction] 89 % Melody Fernandez MD Work Phone: [facility] 02-17-2024 12:54-0400 Systolic blood pressure 113 mm[Hg] Melody Fernandez MD Work Phone: [facility] 02-17-2024 11:51-0400 Body height 162.6 cm Pul Wstr Work Phone: [facility] 02-17-2024 11:51-0400 Body mass index (BMI) [Ratio] 22.3 kg/m2 Pulm [facility]str Work Phone: [facility] 02-17-2024 11:51-0400 Body weight 58.97 kg Pulm [facility]str Work Phone: [facility] 02-17-2024 11:51-0400 Heart rate 102 /min Pulm Wstr Work Phone: [facility] 02-17-2024 11:51-0400 Respiratory rate 14 /min Pulm [facility]str Work Phone: [facility] 02-17-2024 11:51-0400 SaO2% (BldA) [Mass fraction] 93 % Pulm Wstr Work Phone: [facility] 04-15-2022 10:28-0500 Body height 162.[address] Mandy Asher Work Phone: [facility] 04-15-2022 10:17-0500 Body mass index (BMI) [Ratio] 22.8 kg/m2 Dr. Mandy Asher Work Phone: [facility] 04-15-2022 10:17-0500 Body temperature 96.8 [degF] Dr. Mandy Asher Work Phone: [facility] 04-15-2022 10:17-0500 Body weight 60.[address] Mandy Asher Work Phone: [facility] 04-15-2022 10:17-0500 Diastolic blood pressure 73 mm[Hg] Dr. Mandy Asher Work Phone: [facility] 04-15-2022 10:17-0500 Heart rate 68 /min Dr. Mandy Asher Work Phone: [facility] 04-15-2022 10:17-0500 Respiratory rate 97 /min Dr. Mandy Asher Work Phone: [facility] 04-15-2022 10:17-0500 SaO2% (BldA) [Mass fraction] 96 % Dr. Mandy Asher Work Phone: [facility] 04-15-2022 10:17-0500 Systolic blood pressure 127 mm[Hg] Dr. Mandy Asher Work Phone: [facility] 01-08-2022 10:18-0400 Body height 162.[address] Mandy Asher Work Phone: [facility] Work Phone: 01-08-2022 10:18-0400 Body mass index (BMI) [Ratio] 22.6 kg/m2 Dr. Mandy Asher Work Phone: [facility] Work Phone: 01-08-2022 10:18-0400 Body temperature 97.3 [degF] Dr. Mandy Asher Work Phone: [facility] Work Phone: 01-08-2022 10:18-0400 Body weight 59.[address] Mandy Asher Work Phone: [facility] Work Phone: 01-08-2022 10:18-0400 Diastolic blood pressure 77 mm[Hg] Dr. Mandy Asher Work Phone: [facility] Work Phone: 01-08-2022 10:18-0400 Heart rate 72 /min Dr. Mandy Asher Work Phone: [facility] Work Phone: 01-08-2022 10:18-0400 Respiratory rate 16 /min Dr. Mandy Asher Work Phone: [facility] Work Phone: 01-08-2022 10:18-0400 SaO2% (BldA) [Mass fraction] 98 % Dr. Mandy Asher Work Phone: [facility] Work Phone: 01-08-2022 10:18-0400 Systolic blood pressure 118 mm[Hg] Dr. Mandy Asher Work Phone: [facility] Work Phone: 11-22-2021 09:04-0400 Body height 162.[address] Mandy Asher Work Phone: [facility] Work Phone: 11-22-2021 09:04-0400 Body mass index (BMI) [Ratio] 22.8 kg/m2 Dr. Mandy Asher Work Phone: [facility] Work Phone: 11-22-2021 09:04-0400 Body weight 60.[address] Mandy Asher Work Phone: [facility] Work Phone: 11-22-2021 09:04-0400 Diastolic blood pressure 78 mm[Hg] Dr. Mandy Asher Work Phone: [facility] Work Phone: 11-22-2021 09:04-0400 Systolic blood pressure 126 mm[Hg] Dr. Mandy Asher Work Phone: [facility] Work Phone: 11-01-2021 00:28-0400 Respiratory rate 17 /min [facility] Work Phone: 10-31-2021 23:53-0400 Body height 162.56 cm [facility] Work Phone: 10-31-2021 23:53-0400 Body mass index (BMI) [Ratio] 23.5 kg/m2 [facility] Work Phone: 10-31-2021 23:53-0400 Body temperature 97.7 [degF] [facility] Work Phone: 10-31-2021 23:53-0400 Body weight 62.2 kg [facility] Work Phone: 10-31-2021 23:53-0400 Diastolic blood pressure 81 mm[Hg] [facility] Work Phone: 10-31-2021 23:53-0400 Heart rate 86 /min [facility] Work Phone: 10-31-2021 23:53-0400 SaO2% (BldA) [Mass fraction] 100 % [facility] Work Phone: 10-31-2021 23:53-0400 Systolic blood pressure 138 mm[Hg] [facility] Work Phone: 06-18-2021 13:00-0500 Diastolic blood pressure 62 mm[Hg] Dr. Mandy Asher Work Phone: [facility] Work Phone: 06-18-2021 13:00-0500 SaO2% (BldA) [Mass fraction] 97 % Dr. Mandy Asher Work Phone: [facility] Work Phone: 06-18-2021 13:00-0500 Systolic blood pressure 107 mm[Hg] Dr. Mandy Asher Work Phone: [facility] Work Phone: 06-18-2021 10:01-0500 Heart rate 72 /min Dr. Mandy Asher Work Phone: [facility] Work Phone: 06-18-2021 10:01-0500 Respiratory rate 16 /min Dr. Mandy Asher Work Phone: [facility] Work Phone: 06-18-2021 09:22-0500 Body temperature 97.2 [degF] Dr. Mandy Asher Work Phone: [facility] Work Phone: 06-18-2021 08:59-0500 Body height 162.[address] Mandy Asher Work Phone: [facility] Work Phone: 06-18-2021 08:59-0500 Body mass index (BMI) [Ratio] 24.5 kg/m2 Dr. Mandy Asher Work Phone: [facility] Work Phone: 06-18-2021 08:59-0500 Body weight 64.[address] Mandy Asher Work Phone: [facility] Work Phone: 06-15-2021 10:02-0500 Body mass index (BMI) [Ratio] 24.9 kg/m2 Dr. Mandy Asher Work Phone: [facility] Work Phone: 06-15-2021 10:02-0500 Diastolic blood pressure 71 mm[Hg] Dr. Mandy Asher Work Phone: [facility] Work Phone: 06-15-2021 10:02-0500 Systolic blood pressure 107 mm[Hg] Dr. Mandy Asher Work Phone: [facility] Work Phone: 06-15-2021 09:56-0500 Body temperature 96 [degF] Dr. Mandy Asher Work Phone: [facility] Work Phone: 06-15-2021 09:56-0500 Body weight 65.[address] Mandy Asher Work Phone: [facility] Work Phone: 06-15-2021 09:56-0500 Heart rate 84 /min Dr. Mandy Asher Work Phone: [facility] Work Phone: 06-15-2021 09:56-0500 Respiratory rate 18 /min Dr. Mandy Asher Work Phone: [facility] Work Phone: 06-15-2021 09:56-0500 SaO2% (BldA) [Mass fraction] 93 % Dr. Mandy Asher Work Phone: [facility] Work Phone: 08-05-2016 08:18-0400 BMI (Body Mass Index) 21.63 kg/m2 Safdar Alejandro [facility] Work Phone: 08-05-2016 08:18-0400 Weight 57.15 kg [facility] Work Phone: 07-19-2016 12:55-0400 Body Temperature 98 [degF] [facility] Work Phone: 07-19-2016 12:55-0400 BP Diastolic 78 mm[Hg] [facility] Work Phone: 07-19-2016 12:55-0400 BP Systolic 114 mm[Hg] [facility] Work Phone: 07-19-2016 12:55-0400 Height 162.56 cm [facility] Work Phone: 07-19-2016 12:55-0400 Pulse (Heart Rate) 70 /min [facility] Work Phone: 07-19-2016 12:55-0400 Pulse Oximetry 98 % [facility] Work Phone: 07-19-2016 12:55-0400 Respiratory Rate 18 /min [facility] Work Phone: 01-30-2016 06:58-0400 Body Temperature 98.06 [degF] [facility] Work Phone: 01-30-2016 06:58-0400 BSA (Body Surface Area) 1.65 m2 [facility] Work Phone: 01-30-2016 06:58-0400 Height 162.56 cm [facility] Work Phone: 01-30-2016 06:58-0400 Weight 60.45 kg [facility] Work Phone: Encounters Encounter Date Encounter Type Care Provider Facility Start: 01-14-2025 End: 01-14-[address] Mandy Asher MD Work Phone: -[facility] Start: 01-14-2025 End: 01-14-[address] Rosa Dave MD -[facility] Start: 01-13-2025 End: 01-14-2025 ambulatory [facility] Facility:[facility] Start: 01-13-2025 End: 01-13-[address] Rosa Dave MD -[facility] Work Phone: Start: 01-13-2025 End: 01-13-2025 ambulatory [facility] Facility:[facility] Start: 12-23-2024 End: 12-23-[address] Mandy Asher MD Work Phone: -[facility] Start: 12-23-2024 End: 12-23-[address] Rosa Dave MD -[facility] Start: 12-23-2024 End: 12-23-2024 ambulatory [facility] Facility:[facility] Start: 12-15-2024 End: 12-17-2024 Refill Melody Fernandez MD Work Phone: Pulmonary Medicine Comment on above: Refill Request Start: 11-30-2024 End: 11-30-2024 Patient encounter procedure Melody Fernandez MD Work Phone: Pulmonary Medicine Comment on above: Ground glass opacity present on imaging of lung (Primary Dx); Asthma-COPD overlap syndrome (HCC); Former smoker Start: 11-30-2024 End: 11-30-2024 ambulatory MELODY FERNANDEZ Facility:[facility] Start: 11-18-2024 End: 11-18-[address] Mandy Asher MD Work Phone: -[facility] Start: 11-18-2024 End: 11-18-[address] Rosa Dave MD -[facility] Work Phone: Start: 11-18-2024 End: 11-18-2024 ambulatory Mandy Asher Facility:[facility] Start: 11-08-2024 End: 11-08-[address] Mandy Asher MD Work Phone: -[facility] Start: 11-08-2024 End: 11-08-[address] Mandy Asher MD -[facility] Start: 11-08-2024 End: 11-08-2024 ambulatory Mandy Asher Facility:[facility] Start: 10-22-2024 End: 10-22-[address] Mandy Asher MD Work Phone: [facility] Work Phone: Start: 10-22-2024 End: 10-22-[address] Rosa Dave MD -[facility] Work Phone: Start: 10-22-2024 End: 10-22-2024 ambulatory Rosa Dave Facility:[facility] Start: 09-24-2024 End: 09-24-[address] Mandy Asher MD Work Phone: [facility] Work Phone: Start: 09-24-2024 End: 09-24-[address] Mandy Asher MD -[facility] Work Phone: Start: 09-24-2024 End: 09-24-2024 ambulatory Mandy Asher Facility:[facility] Start: 09-16-2024 ambulatory MANDY ASHER Facility:[facility] Start: 09-16-2024 End: 09-16-2024 Subsequent hospital visit by physician Devorah [facility] ([facility] Work Phone: Cat Scan Comment on above: Lung nodules [R91.8] Start: 08-24-2024 End: 08-24-[address] aMndy Asher MD Work Phone: [facility] Work Phone: Start: 08-24-2024 End: 08-24-[address] Rosa Dave MD -Laboratory, [place] Work Phone: Start: 08-24-2024 End: 08-24-2024 ambulatory [facility] Facility:[facility] Start: 08-11-2024 End: 08-11-[address] Mandy Asher MD Work Phone: [facility] Work Phone: Start: 08-11-2024 End: 08-11-[address] Rosa Dave MD -Ultrasound, [facility] Work Phone: Start: 08-11-2024 End: 08-11-2024 ambulatory [facility] Facility:[facility] Start: 08-09-2024 End: 08-10-2024 Refill Melody Fernandez MD Work Phone: Pulmonary Medicine Comment on above: Med Change Request Start: 08-02-2024 End: 08-02-[address] Mandy Asher MD Work Phone: [facility] Work Phone: Start: 08-02-2024 End: 08-02-[address] Rosa Dave MD -Laboratory, [place] Work Phone: Start: 08-02-2024 End: 08-02-2024 ambulatory [facility] Facility:[facility] Start: 07-22-2024 End: 07-22-2024 Patient encounter procedure Savanah DOWELL -[facility] Work Phone: Start: 07-22-2024 End: 07-22-2024 ambulatory Mandy Asher [facility] Start: 07-08-2024 End: 07-08-[address] Mandy Asehr MD Work Phone: [facility] Work Phone: Start: 07-08-2024 End: 07-08-[address] Vinny Lanza MD -Radiology, [place] Work Phone: Start: 07-08-2024 End: 07-08-2024 ambulatory [facility] Facility:[facility] Start: 07-03-2024 End: 07-05-2024 Refill Melody Fernandez MD Work Phone: Pulmonary Medicine Comment on above: Refill Request Start: 06-24-2024 End: 06-24-[address] Vinny Lanza MD -Radiology, [place] Work Phone: Start: 06-24-2024 End: 06-24-2024 ambulatory Mandy Asher Facility:[facility] Start: 06-17-2024 End: 06-17-2024 ambulatory MELODY FERNANDEZ Facility:[facility] Start: 06-17-2024 End: 06-17-2024 Patient encounter procedure Melody Fernandez MD Work Phone: Pulmonary Medicine Comment on above: Ground glass opacity present on imaging of lung (Primary Dx); Asthma-COPD overlap syndrome (HCC); Bronchiectasis without complication (HCC); Pulmonary emphysema, unspecified emphysema type (HCC) Start: 06-07-2024 End: 06-07-[address] Rosa Dvae MD -Laboratory, [place] Work Phone: Start: 06-07-2024 End: 06-07-2024 ambulatory Rosa Dave Facility:[facility] Start: 04-08-2024 End: 04-09-2024 ambulatory Melody Fernandez MD Work Phone: Pulmonary Medicine Comment on above: My perscriptioms Start: 03-18-2024 End: 03-18-2024 [facility] Facility[facility] Start: 03-15-2024 End: 03-15-2024 ambulatory Rosa Dave Facility:[facility] Start: 03-03-2024 End: 03-03-2024 Telephone encounter Melody Fernandez MD Work Phone: Pulmonary Medicine Comment on above: Results (Chest CT) Start: 03-01-2024 End: 03-01-2024 ambulatory Reji Muhammad Facility:[facility] Start: 02-27-2024 End: 02-27-2024 ambulatory MANDY José Miguel KILDARE Facility:[facility] Start: 02-27-2024 End: 02-27-2024 Subsequent hospital visit by physician [facility] ([facility]) Work Phone: Cat Scan Comment on above: Bronchiectasis witho ut complication (HCC) [J47.9] Start: 02-24-2024 End: 02-24-2024 ambulatory MANDY José Miguel KILDARE Facility:[facility] Start: 02-17-2024 End: 02-17-2024 [facility] Facility:[facility] Start: 02-17-2024 End: 02-17-2024 Patient encounter procedure Melody Fernandez MD Work Phone: Pulmonary Medicine Comment on above: Asthma-COPD overlap syndrome (HCC) (Primary Dx); Bronchiectasis without complication (HCC); Lung nodules; Former cigarette smoker Start: 02-17-2024 End: 02-17-2024 ambulatory Pulm Lab [facility] Work Phone: PULM LAB [facility] Comment on above: Spirometry Start: 02-17-2024 End: 02-17-2024 Patient encounter procedure Pulm Lab [facility] Work Phone: PULM LAB [facility] Start: 08-26-2023 End: 08-26-2023 ambulatory [facility] Work Phone: Start: 08-26-2023 End: 08-26-2023 Patient encounter procedure [facility]-Radiology, [place] Work Phone: Start: 08-04-2023 End: 08-04-2023 ambulatory [facility] Work Phone: Start: 08-04-2023 End: 08-04-2023 Patient encounter procedure [facility]-Radiology, [place] Work Phone: Start: 07-22-2023 End: 07-22-2023 ambulatory [facility] Work Phone: Start: 07-22-2023 End: 07-22-2023 Patient encounter procedure [facility]-Laboratory, [place] Work Phone: Start: 06-27-2023 End: 06-27-2023 ambulatory [facility] Work Phone: Start: 06-27-2023 End: 06-27-2023 Patient encounter procedure [facility]Laboratory, [place] Work Phone: Start: 06-26-2023 End: 06-26-2023 ambulatory [facility] Work Phone: Start: 06-26-2023 End: 06-26-2023 Patient encounter procedure [facility]Laboratory, [place] Work Phone: Start: 05-27-2023 End: 05-27-2023 ambulatory [facility] Work Phone: Start: 05-27-2023 End: 05-27-2023 Patient encounter procedure [facility]-Laboratory, [place] Work Phone: Start: 04-08-2023 End: 04-08-2023 ambulatory [facility] Work Phone: Start: 04-08-2023 End: 04-08-2023 Patient encounter procedure [facility]Laboratory, [place] Work Phone: Start: 02-07-2023 End: 02-07-2023 ambulatory [facility] Work Phone: Start: 02-07-2023 End: 02-07-2023 [facility] [place] Work Phone: Start: 02-05-2023 End: 02-05-2023 Patient encounter procedure [facility], [place] Work Phone: Start: 01-24-2023 End: 01-24-2023 [facility] Work Phone: Start: 12-26-2022 End: 12-26-2022 ambulatory [facility] Work Phone: Start: 12-26-2022 End: 12-26-2022 Patient encounter procedure [facility]-Radiology, [place] Work Phone: Start: 11-28-2022 End: 11-28-2022 ambulatory [facility] Work Phone: Start: 11-28-2022 End: 11-28-2022 Patient encounter procedure [facility]Radiology, [place] Work Phone: Start: 11-22-2022 End: 11-22-2022 ambulatory [facility] Work Phone: Start: 11-22-2022 End: 11-22-2022 [facility] encounter [facility] Work Phone: Start: 10-28-2022 End: 10-28-2022 ambulatory [facility] Work Phone: Start: 10-28-2022 End: 10-28-2022 [facility] Work Phone: Start: 08-20-2022 End: 08-20-2022 ambulatory [facility] Work Phone: Start: 08-20-2022 End: 08-20-2022 [facility] Start: 08-15-2022 End: 08-15-2022 ambulatory [facility] Work Phone: Start: 08-15-2022 End: 08-15-2022 Discharged Recurring [facility]-Physical Therapy Start: 06-27-[address] Mandy Asher Work Phone: [facility]-Physical Therapy Start: 06-21-2022 End: 06-21-[address] Mandy Asher Work Phone: [facility] Work Phone: Start: 06-21-2022 End: 06-21-[address] Mandy Asher Work Phone: [facility] Start: 04-22-2022 End: 04-22-[address] Mandy Asher Work Phone: [facility] Work Phone: Start: 04-22-2022 End: 04-22-[address] Mandy Asher Work Phone: [facility] Start: 04-15-2022 End: 04-15-[address] Mandy Asher Work Phone: [facility] Start: 02-12-2022 End: 02-12-[address] Mandy Asher Work Phone: [facility] Work Phone: Start: 02-12-2022 End: 02-12-[address] Mandy Asher Work Phone: [facility] Start: 01-08-2022 End: 01-08-[address] Mandy Asher Work Phone: [facility] Start: 12-12-2021 End: 12-12-[address] Mandy Asher Work Phone: [facility]-Outpatient Pavilion Ultrasound Start: 12-06-2021 End: 12-06-[address] Mandy Asher Work Phone: [facility]-Outpatient Bone Densitometry Start: 11-22-2021 End: 11-22-[address] Mandy Asher Work Phone: [facility] Start: 11-12-2021 End: 11-12-2021 Patient encounter procedure [facility] Start: 10-31-2021 End: 11-01-2021 Emergency department patient visit [facility]-Emergency Department Start: 09-28-2021 End: 09-28-[address] Mandy Asher Work Phone: [facility] Start: 08-21-2021 End: 08-21-[address] Mandy Asher Work Phone: [facility] Start: 07-09-2021 ambulatory HAM M ELIAS Facility: [facility] Start: 06-22-2021 ambulatory MANDY ASHER Facility:[facility] Start: 06-18-2021 End: 06-18-2021 Emergency department patient visit Dr. Mandy Asher Work Phone: [facility]-Emergency Department Start: 06-15-2021 End: 06-15-[address] Mandy Asher Work Phone: [facility] Start: 05-24-2021 ambulatory HAM M ELIAS Facility: [facility] Start: 05-24-2021 ambulatory TASHIA Galindo ELIAS Facility: [facility] Start: 05-11-2021 ambulatory MANDY ASHER Facility:[facility] Start: 04-25-2021 ambulatory MANDY ASHER Facility:[facility] Start: 04-13-2021 ambulatory MANDY ASHER Facility:[facility] Start: 04-11-2021 End: 04-11-2021 ambulatory TASHIA M ELIAS Facility:[facility] Start: 04-09-2021 ambulatory TASHIA M ELIAS Facility: [facility] Start: 04-09-2021 ambulatory CROW cMcraryi lity:[facility] Start: 03-27-2021 ambulatory MANDY ASHER Facility:[facility] Start: 03-25-2018 Patient encounter procedure Dav Paz Facility:[facility] Start: 08-12-2017 End: 08-13-2017 Patient encounter procedure Dav Paz Facility:[facility] Start: 08-12-2017 End: 08-13-2017 Patient encounter procedure Dav Paz Facility:[facility] Start: 08-12-2017 End: 08-12-2017 Patient encounter procedure Dav Paz Facility:[facility] Start: 04-22-2017 End: 04-23-2017 Patient encounter procedure Dav Paz Facility:[facility] Start: 04-22-2017 End: 04-23-2017 Patient encounter procedure Dav Paz Facility:[facility] Start: 04-17-2017 End: 04-17-2017 Patient encounter procedure Dav Paz Facility:[facility] Procedures Date Procedure Procedure Detail Performing Clinician Start: 01-14-2025 Radiologic exam chest [address] Mandy salomon MD Work Phone: Start: 01-14-2025 In-vitro immunologic test Dr. Mandy Asher MD Work Phone: Comment on above: QuantiFERON-TB Gold Plus is a qualitativ e indirect test forM tuberculosis infection (including disease) and isintended for use in conjunction with risk assessment,radiography, and other medical and diagnostic evaluations.The QuantiFERON-TB Gold Plus result is determined bysubtracting the Nil value from either TB antigen (Ag)value. The Mitogen tube serves as a control for the test. No response to M tub erculosis antigens detected.Infection with M tuberculosis is unlikely, but high riskindividuals should be considered for additional testing(ATS/IDSA/CDC Clinical Practice Guidelines, 2017). Thereference range is an Antigen minus Nil result of <0.35IU/mL.The specimen received for QuantiFERON testing was incubatedby the ordering institution. Specific procedures outlinedin our Directory of Services and in the package insert forthe QuantiFERON Gold (In Tube) test must be followed toenable for proper stimulation of cells for the productionof interferon gamma. Chemiluminescence immunoassaymethodologyPerformed at: [facility] [id number] Director: Mehran Pindea PhD, Phone: [phone] Start: 09-24-[address] Mandy Asher MD Work Phone: Start: 08-11-[address] Mandy baez MD Work Phone: Start: 07-08-2024 X-ray of cervical spine Dr. Mandy Asher MD Work Phone: Start: 06-24-2024 X-ray of both temporomandibular joints Dr. Mandy Asher MD Work Phone: Start: 06-07-2024 Measurement of renal function Dr. Mandy salomon MD Work Phone: Comment on above: GFR Calc Start: 02-17-2024 Co diffusing capacity Melody Fernandez MD Work Phone: Start: 08-26-2023 Radiography of ankle Start: 08-26-2023 X-ray of both feet Start: 08-04-2023 X-ray of unilateral ribs, two views without x-ray of chest Start: 01-24-2023 Radiologic examination of knee Start: 12-26-2022 Plain X-ray of shoulder Start: 12-26-2022 X-ray of cervical spine Start: 11-28-2022 Plain x-ray of pelvis and lower extremity Start: 11-28-2022 X-ray of lumbosacral spine Start: 12-12-[address] Mandy Asher Work Phone: Start: 12-06-2021 Dual energy X-ray absorptiometry Dr. Nohemi Asher Work Phone: Start: 12-06-[address] Mandy Asher Work Phone: Start: 08-21-2021 MRI of brain with contrast Dr. Mandy baez Work Phone: Start: 06-18-2021 Computed tomography of abdomen and pelvis with contrast Dr. Mandy Asher Work Phone: Start: 12-13-2016 End: 12-13-2016 Urinalysis Rubens Mk Start: 08-05-2016 End: 08-16-2016 DEXA scan Woody Alejandro Work Phone: Start: 08-05-2016 End: 08-16-2016 X-ray exam l-s spine bending Woody Alejandro Work Phone: Start: 08-05-2016 End: 08-16-2016 X-ray exam of trunk spine Woody Alejandro Work Phone: Start: 01-04-2016 End: 07-16-2016 Pulmonary Function Test - complete Rubens Terrazas Work Phone: Start: 10-26-2015 End: 07-16-2016 [facility] Rubens Terrazas Work Phone: Start: 10-26-2015 End: 07-16-2016 Follow Up Appt 3 months Rubens Terrazas Work Phone: Start: 10-04-2015 End: 07-16-2016 Pulmonary Function Test - complete Rubens Terrazas Work Phone: Start: 09-03-2015 End: 07-16-2016 Ct thorax w/o dye Rubens Yesi Terrazas Work Phone: Start: 07-26-2015 End: 07-16-2016 Follow Up Appt 3 months Rubens Yesi Terrazas Work Phone: Start: 02-14-2015 End: 02-14-2015 Documentation of current medications Stepan queen Yesi Terrazas Work Phone: Start: 02-14-2015 End: 02-15-2015 Evaluate pt use of inhaler Rubens Yesi Omalleycarlos swanson Work Phone: Start: 02-14-2015 End: 07-16-2016 Follow Up Appt 3 months Rubens Yesi Terrazas Work Phone: Start: 08-23-2014 End: 07-16-2016 Follow Up Appt 6 months Rubens Yesi Terrazas Work Phone: Start: 03-13-2012 Lipid 1996 panel - Serum or Plasma Pulm Wstr Work Phone: Start: 02-11-2011 Colonoscopy Pulm [facility] Work Phone: H/O: hysterectomy History of hysterectomy Dr. Mandy Asher Work Phone: History of tonsillectomy History of tonsillectomy Dr. Mandy Asher Work Phone: Plan of Treatment Date Care Activity Detail Author Start: 05-21-2027 Screening for malign ant neoplasm of colon Cologuard (FIT-DNA) [facility] Start: 09-12-2025 End: 09-12-2025 Patient encounter procedure 09/12/2025 2:20 PM EDT Appointment Cat Scan [address] [place] [place] [id number] Ground glass opacity present on imaging of lung [R91.8] Cat Scan Comment on above: Ground glass opacity present on imaging of lung [R91.8] Start: 09-05-2025 End: 12-30-2025 CT Chest WO contrast CT CHEST WO IVCON Radiology Routine Ground glass opacity present on imaging of lung Expected: 09/05/2025, Expires: 12/30/2025 [facility] Work Phone: Comment on above: Expected: 09/05/2025 , Expires: 12/30/2025 Start: 06-02-2025 End: 06-02-2025 Patient encounter procedure 06/02/2025 2:15 PM EST Office Visit Pulmonary Medicine [address] [place] [address] Melody Fernandez MD [address] [place] [address] 6 MO OV Pulmonary Medicine Comment on above: 6 MO OV Start: 01-03-2025 Influenza vaccination Influenza Vacc ine (#1) [facility] Start: 11-30-2024 End: 11-30-2024 Patient encounter procedure 11/30/2024 2:15 PM EDT Office Visit Pulmonary Medicine [address] [place] [address] Melody Fernandez MD [address] [place] [address] CT f/up Pulmonary Medicine Comment on above: CT f/up Start: 09-16-2024 End: 09-16-2024 Patient encounter procedure 09/16/2024 11:20 AM EDT Appointment Cat Scan [address] [place] [address] Lung nodules [R91.8]; Ground glass opacity present on imaging of lung [R91.8] Cat Scan Comment on above: Lung nodules [R91.8] ; Ground glass opacity present on imaging of lung [R91.8] Start: 09-01-2024 End: 04-02-2025 CT Chest WO contrast CT CHEST WO IVCON Radiology Routine Lung nodules Ground glass opacity present on imaging of lung Expected: 09/01/2024, Expires: 04/02/2025 [facility] Work Phone: Comment on above: Expected: 09/01/2024 , Expires: 04/02/2025 Start: 07-29-2024 Covid-19 Vaccine (8 - Pfizer risk ) Covid-19 Vaccine (8 - Pfizer risk ) [facility] Start: 07-22-2024 Patient referral [facility] Work Phone: Start: 06-04-2024 End: 06-04-2024 Patient encounter procedure 06/04/2024 9:30 AM EST Office Visit Pulmonary Medicine [address] [place] [address] Melody Fernandez MD [address] [place] [address] 3 MTH F/U ASTHMA Pulmonary Medicine Comment on above: 3 MTH F/U ASTHMA Start: 05-22-2024 Screening for malign ant neoplasm of colon Colorectal Cancer Screening [facility] Start: 05-05-2024 Advance Directive Discussion Advance Directive Discussion [facility] Start: 05-05-2024 Medicare Advantage Annual Wellness Visit Medicare Advantage Annual Wellness Visit [facility] Start: 03-26-2024 Covid-19 Vaccine () Covid-19 Vaccine () [facility] Start: 02-27-2024 End: 02-27-2024 Patient encounter procedure 02/27/2024 11:40 AM EDT Appointment Cat Scan [address] [place] [address] CT CHEST Cat Scan Comment on above: CT CHEST Start: 02-17-2024 End: 05-18-2024 [facility] Lab Routine Asthma-COPD overlap syndrome (HCC) Expected: 02/17/2024, Expires: 05/18/2024 [facility] Comment on above: Expected: 02/17/2024 , Expires: 05/18/2024 Start: 02-17-2024 End: 05-18-2024 Eosinophils [#/volume] in Blood EOSINOPHIL ABS COUNT Lab Routine Asthma-COPD overlap syndrome (HCC) Expected: 02/17/2024, Expires: 05/18/2024 [facility] Comment on above: Expected: 02/17/2024 , Expires: 05/18/2024 Start: 02-17-2024 End: 05-18-2024 IgE [Units/volume] in Serum or Plasma IMMUNOGLOBULIN E Lab Routine Asthma-COPD overlap syndrome (HCC) Expected: 02/17/2024, Expires: 05/18/2024 [facility] Comment on above: Expected: 02/17/2024 , Expires: 05/18/2024 Start: 05-05-2023 Advance Directive Discussion Advance Directive Discussion [facility] Start: 05-03-2023 Urine microalbumin profile DTaP,Tdap,Td Vaccine (2 - Td or Tdap) [facility] Start: 01-27-2023 Pneumococcal Vaccine : 50+ (4 of 4 - PCV20 or PCV21) Pneumococcal Vaccine: 50+ (4 of 4 - PCV20 or PCV21) [facility] Start: 01-24-2023 Measurement of Borre rian burgdorferi antibody [facility] Start: 01-24-2023 Measurement of Human coxsackievirus B antibody [facility] Start: 12-06-2021 Dual energy X-ray absorptiometry Dexa Bone Density Study [facility] Work Phone: Start: 12-06-2021 DXA Bone [Mass/Area] Bone density [facility] Work Phone: Start: 02-11-2021 Screening for malign ant neoplasm of colon [facility] Start: 12-19-2020 Pneumococcal Vaccine : 65+ (4 of 4 - PPSV23 or PCV20) Pneumococcal Vaccine: 65+ (4 of 4 - PPSV23 or PCV20) [facility] Start: 2019 Screening for osteoporosis Bone Density Screening [facility] Start: 06-28-2017 Shingrix Vaccine (1 of 2) Shingrix Vaccine (1 of 2) [facility] Start: 03-19-2017 Screening for malign ant neoplasm of breast Mammogram Screening [facility] Start: 03-13-2017 Lipid panel Lipid Screening [facility] Start: 01-15-2017 End: 01-15-2017 Appointment Appointment [facility] Work Phone: Start: 01-15-2017 End: 01-15-2017 Appointment Appointment Pulmonary Medicine [place] Work Phone: Start: 08-05-2016 End: 08-16-2016 DEXA scan DEXA scan [facility] Work Phone: Start: 08-05-2016 End: 08-16-2016 X-ray exam l-s spine bending X-Ray, Spine, Lumbar, complete with bending views [facility] Work Phone: Start: 08-05-2016 End: 08-16-2016 X-ray exam of trunk spine X-Ray, Scoliosis Study [facility] Work Phone: Start: 07-19-2016 End: 07-19-2016 Follow Up Appt 6 months Follow Up Appt 6 months [facility] Work Phone: Start: 07-19-2016 End: 07-19-2016 Pulmonary Function Test - complete Pulmonary Function Test - complete [facility] Work Phone: Start: 01-30-2016 End: 01-30-2016 Follow Up Appt 6 months Follow Up Appt 6 months [facility] Work Phone: Start: 01-04-2016 End: 07-16-2016 Pulmonary Function Test - complete Pulmonary Function Test - complete [facility] Work Phone: Start: 10-26-2015 End: 07-16-2016 [facility] Work Phone: Start: 10-26-2015 End: 07-16-2016 Follow Up Appt 3 months Follow Up Appt 3 months [facility] Work Phone: Start: 10-04-2015 End: 07-16-2016 Pulmonary Function Test - complete Pulmonary Function Test - complete [facility] Work Phone: Start: 09-03-2015 End: 07-16-2016 Ct thorax w/o dye CT Chest without contrast [facility] Work Phone: Start: 07-26-2015 End: 07-16-2016 Follow Up Appt 3 months Follow Up Appt 3 months [facility] Work Phone: Start: 03-13-2015 Diabetes Screening Diabetes Screenin g [facility] Start: 02-14-2015 End: 07-16-2016 Follow Up Appt 3 months Follow Up Appt 3 months [facility] Work Phone: Start: 08-23-2014 End: 07-16-2016 Follow Up Appt 6 months Follow Up Appt 6 months [facility] Work Phone: Start: 03-05-2013 Screening for malign ant neoplasm of cervix Cervical Cancer Screening [facility] Start: 1999 Screening for malign ant neoplasm of colon [facility] Start: 02-03-1984 Zoledronic acid therapy Alpha- 1 Antitrypsin Deficiency Screening [facility] Start: 02-03-1972 Annual PCP Team [employer] solange Disease Visit Annual PCP Team Chronic Disease Visit [facility] Start: 02-03-1972 Depression Screening Depression Scre [facility] Start: 02-03-1972 Hepatitis C screening Hepatitis C [facility] Albumin/Globulin [Ma ss Ratio] in Serum or Plasma by Electrophoresis [facility] Work Phone: Continuous pulse oximetry [facility] Work Phone: Continuous pulse oximetry [facility] Coxsackievirus A10 A b [Presence] in Serum [facility] Coxsackievirus A16 A b [Presence] in Serum [facility] Coxsackievirus A2 Ab [Presence] in Serum [facility] Coxsackievirus A4 Ab [Presence] in Serum [facility] Coxsackievirus A7 Ab [Presence] in Serum [facility] Coxsackievirus A9 Ab [Presence] in Serum [facility] Coxsackievirus B1 Ab [Presence] in Serum [facility] Coxsackievirus B2 Ab [Presence] in Serum [facility] Coxsackievirus B3 Ab [Presence] in Serum [facility] Coxsackievirus B4 Ab [Presence] in Serum [facility] Coxsackievirus B5 Ab [Presence] in Serum [facility] Coxsackievirus B6 Ab [Presence] in Serum [facility] End: 03-18-2025 CT Chest WO contrast CT CHEST WO IVCON Radiology Routine Bronchiectasis without complication (HCC) Lung nodules 1 Occurrences starting 02/17/2024 until 03/18/2025 [facility] Work Phone: Comment on above: 1 Occurrences starti ng 02/17/2024 until 03/18/2025 CT Chest WO contrast CT CHEST WO IVCON Radiology Routine Bronchiectasis without complication (HCC) Lung nodules 02/27/2024 12:03 PM EDT [facility] Work Phone: CT Chest WO contrast CT CHEST WO IVCON Radiology Routine Lung nodules Ground glass opacity present on imaging of lung 09/16/2024 11:21 AM EDT [facility] Work Phone: Electrophoresis: albumin [facility] Work Phone: Electrophoresis: [id number] [facility] Work Phone: Electrophoresis: [id number] [facility] Work Phone: Electrophoresis: jose c ma globulin [facility] Work Phone: Globulin measurement [facility] Work Phone: IgA [Mass/volume] in Serum or Plasma [facility] Work Phone: IgE [Units/volume] i n Serum or Plasma [facility] Work Phone: IgG [Mass/volume] in Serum or Plasma [facility] Work Phone: Measurement of respiratory function [facility] Work Phone: Measurement of respiratory function [facility] MR Cervical spine [facility] Patient Education [facility] Work Phone: Patient referral [facility] Work Phone: Protein electrophore sis panel - Serum or Plasma [facility] Work Phone: Serum protein electrophoresis [facility] Work Phone: Total globulins measurement [facility] Work Phone: [facility] Immunizations Immunization Date Immunization Notes Care Provider [facility] 01-30-2024 influenza, high dose seasonal, preservative-free Melody Fernandez MD Work Phone: [facility] 01-30-2024 influenza virus vacc ine, unspecified formulation Melody Fernandez MD Work Phone: [facility] 03-14-2023 influenza (aIIV4) vaccine, age 65+ yr, quadrivalent, PF (FLUAD QUAD) Melody Fernandez MD Work Phone: [facility] 03-14-2023 respiratory syncytia l virus (RSV) vaccine, bivalent (ABRYSVO) Melody Fernandez MD Work Phone: [facility] 02-19-2022 influenza (aIIV4) vaccine, age 65+ yr, quadrivalent, PF (FLUAD QUAD) Melody Fernandez MD Work Phone: [facility] 01-28-2020 influenza, injectabl e, quadrivalent, preservative free Melody Fernandez MD Work Phone: [facility] 03-19-[address] Mandy Asher Work Phone: [facility] 03-03-2019 influenza, seasonal, injectable Melody Fernandez MD Work Phone: [facility] 01-27-2018 influenza, injectabl e, quadrivalent, contains preservative Melody Fernandez MD Work Phone: [facility] 01-27-2018 pneumococcal conjuga te vaccine, 13 valent Melody Fernandez MD Work Phone: [facility] 01-28-2017 influenza, injectabl e, quadrivalent, preservative free Melody Fernandez MD Work Phone: [facility] 01-22-2016 influenza, seasonal, injectable Melody Fernandez MD Work Phone: [facility] 12-20-2015 pneumococcal polysaccharide vaccine, 23 valsurya Fernandez MD Work Phone: [facility] 12-20-[address] Nohemi Asher Work Phone: [facility] Work Phone: 12-20-2015 pneumococcal vaccine , unspecified formulation Dr. Mandy Asher Work Phone: [facility] 03-22-2015 influenza, seasonal, injectable Melody Fernandez MD Work Phone: [facility] 02-12-2014 influenza, seasonal, injectable Melody Fernandez MD Work Phone: [facility] 05-03-2013 pneumococcal polysaccharide vaccine, 23 valsurya Fernandez MD Work Phone: [facility] 05-03-2013 tetanus toxoid, redu tarun diphtheria toxoid, and acellular pertussis vaccine, adsorbed Melody Fernandez MD Work Phone: [facility] 01-27-2012 influenza virus vacc ine, unspecified formulation Pulm Wstr Work Phone: [facility] 05-15-2009 novel influenza-H1N1 -09, preservative-free, injectable Melody Fernandez MD Work Phone: [facility] Payers Date Payer Category Payer Self-pay [id number] 2023 Medicare AETNA MEDICARE A ETNA MEDICARE PPO [id number] 2023-Present [phone] [address] [place] [address] PPO [id number] 2023 Medicare (Managed Care) [employer] ME DICARE [id number] 2023 Private Health Insurance 101 [id number] 2020 Unknown [id number] 2019 Medicare [id number] 2017 Unknown 2016 Unknown [id number] 1955 Unknown [id number] 2.16.840.1.301386.3.579.2. 717 1954 Unknown [id number] 2.16.840.1.294419.3.579.2. 717 1954 Unknown [id number] 2.16.840.1.360914.3.579.2. 717 1954 Unknown [id number] 2.16.840.1.709281.3.579.2. 717 1954 Unknown [id number] 2.16.840.1.150998.3.579.2. 717 1954 Unknown [id number] 2.16.840.1.188584.3.579.2. 717 1954 Unknown [id number] 2.16.840.1.629216.3.579.2. 594 1954 Unknown [id number] 2.16.840.1.216811.3.579.2. 594 1954 Unknown [id number] 2.16.840.1.084774.3.579.2. 594 1954 Unknown [id number] 2.16.840.1.136067.3.579.2. 594 1954 Unknown [id number] 2.16.840.1.156732.3.579.2. 594 1954 Unknown [id number] 2.16.840.1.596729.3.579.2. 594 1954 Unknown [id number] 2.16.840.1.849572.3.579.2. 594 1954 Unknown [id number] 2.16.840.1.747693.3.579.2. 594 1954 Unknown [id number] 2.16.840.1.538934.3.579.2. 594 1954 Unknown [id number] 2.16.840.1.325251.3.579.2. 594 1954 Unknown [id number] 2.16.840.1.367335.3.579.2. 594 1954 Unknown [id number] 2.16.840.1.232114.3.579.2. 594 1954 Unknown [id number] 2.16.840.1.843425.3.579.2. 594 1954 Unknown [id number] 2.16.840.1.430153.3.579.2. 594 Unknown [id number] 2.16.840.1.668667.3.579.2. 462 Unknown [id number] 2.16.840.1.123794.3.579.2. 462 Unknown [id number] 2.16.840.1.423368.3.579.2. 462 Unknown [id number] 2.16840.1.989728.3.579.2. 462 Unknown [id number] 2.16840.1.297684.3.579.2. 462 Unknown [id number] 2.840.1.480789.3.579.2. 462 Unknown [id number] 2.840.1.327553.3.579.2. 462 Unknown [id number] 2.840.1.004345.3.579.2. 462 Unknown [id number] 2.840.1.952132.3.579.2. 462 Unknown [id number] 2.840.1.330882.3.579.2. 462 Unknown [id number] 2.840.1.054540.3.579.2. 462 Unknown [id number] 2.840.1.360158.3.579.2. 462 Unknown [id number] 2.840.1.432610.3.579.2. 462 Unknown [id number] 2.840.1.873655.3.579.2. 462 Unknown [id number] 2.840.1.318226.3.579.2. 462 Unknown [id number] 2.840.1.777056.3.579.2. 462 Unknown [id number] 2.840.1.930175.3.579.2. 462 Unknown [id number] 2.840.1.002242.3.579.2. 462 Social History Date Type Detail Facility Start: 06-18-2021 End: 04-15-2022 Tobacco smoking status NHIS Unknown if ever smoked [facility] Start: 06-27-2019 Occasional [facility] Start: 05-02-2019 None [facility] Start: 01-17-2020 Spouse/ Signif icant Other [facility] Start: 1955 Sex Assigned At Female [facility] Start: 12-18-2015 Non-smoker [facility] Start: 02-17-2024 Tobacco smoking stat us WYIS Ex-smoker [facility] History of tobacco use Current smoker [facility] History of tobacco use Cigarette Smoker [facility] Start: 02-17-2024 End: 11-30-2024 Cigarettes smoked current (pack per day) - Reported 1 [facility] Start: 02-17-2024 Tobacco use and exposure Smokeless tobacco non-user [facility] Start: 02-17-2024 End: 11-30-2024 Alcoholic beverage intake Current drinker of alcohol (finding) [facility] Start: 02-17-2024 End: 11-30-2024 Tobacco use panel [facility] Start: 04-05-2012 National Score (1-10 0), lower number is lower risk 69 [facility] Start: 02-17-2024 Tobacco Comment Quit 08/2004 [facility] Start: 02-17-2024 Alcohol Comment only on vacation [facility] Start: 1955 Sex assigned at Not on file [facility] Start: 02-18-2024 Gender identity Identifies as female gender (finding) [facility] Start: 04-15-2022 Tobacco smoking stat us WYIS Never smoked tobacco (finding) [facility] Start: 07-19-2024 End: 08-27-2024 Sex Female (finding) [facility] Medical Equipment Procedure Code Equipment Code Equipment Origin al Text Equipment Identifier Dates Patch Ventralex St Sepra Sorbaflex 2.5in Medium [employer] - [id number] Start: 04-10-2016 Comment on above: Description: Ventral ex ST Hernia Patch Functional Status Date Assessment Result Facility 03-14-2014 Are you deaf, or do you have serious difficulty hearing No 03/14/2014 8:55 AM EST Mony, Cyndi, [facility] 03-14-2014 Are you blind, or do you have serious difficulty seeing, even when wearing glasses No 03/14/2014 8:55 AM Cyndi Conde MA [facility] 03-14-2014 Do you have serious difficulty walking or climbing stairs No 03/14/2014 8:55 AM Cyndi Conde MA [facility] 03-14-2014 Do you have difficul ty dressing or bathing No 03/14/2014 8:55 AM [facility] Cyndi Sykes MA [facility] 03-14-2014 Because of a physica l, mental, or emotional condition, do you have difficulty doing errands alone such as visiting a physician's office or shopping No 03/14/2014 8:55 AM Cyndi Conde MA [facility] Mental Status Date Assessment Result Facility 03-14-2014 Because of a physica l, mental, or emotional condition, do you have serious difficulty concentrating, remembering, or making decisions No 03/14/2014 8:55 AM [facility] Cyndi Sykes [facility] Clinical Notes 08-15-2022 to 01-14-2025 Telephone Encounter - Mary Brumfield LPN - 12/17/2024 10:35 AM EDTTelephone Encounter - Mayr Brumfield LPN - 12/17/2024 10:35 AM Melody Anthony MD - 11/30/2024 2:15 PM EDT Note Date & Type Note Facility 01-14-2025 Radiology Diagnostic study note [facility] Imaging Services [address] [place] [address] [id number] Chest PA and Lateral MR#: [id number] Acct: [id number] Name: YENNY DING Rep #: [id number] : 1955 F 69 From: Ranjan Olvio MD PCP: Dr. Mandy Asher MD Status: REG CLI Study:Chest PA and Lateral Date of Exam: 01/14/25 Exam# [id number] Ordering Dr: Rosa Dave MD PROCEDURE: CHEST PA AND LATERAL 01/14/2025 REASON FOR EXAM: PAIN TECHNIQUE: Procedure Code: RADCXR Modality: DX Procedure: CHEST PA AND LATERAL COMPARISON: Right rib series 08/04/2023. RAD/Chest PA and Lateral IMPRESSION: Degenerative changes, scoliosis, and partially visualized lumbar surgery noted. Generalized osteopenia is present. Lungs appear clear of acute disease. No pleural effusion or pneumothorax is seen. The cardiomediastinal silhouette is stable, without evidence of cardiomegaly. Reading Location: [place] [address] CC: Dr. Mandy Asher MD; Dr. 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 Mary Brumfield LPN [facility] 12-17-2024 Miscellaneous Notes [facility] 11/30/24 Patient phones requesting refills as follows: Requested Prescriptions Pending Prescriptions Disp Refills azithromycin (ZITHROMAX) 250 mg tablet [Pharmacy Med Name: AZITHROMYCIN TAB 250MG] 39 tablet 2 Sig: TAKE 1 TABLET FRIDAY, FRIDAY, FRIDAY ipratropium bromide (ATROVENT) 42 mcg (0.06 %) nasal spray [Pharmacy Med Name: IPRATROPIUM SPR 0.06%] 45 mL 2 Sig: USE 1 SPRAY NASALLY TWICE DAILY Please review and advise. Mary Brumfield LPN documented in this encounter [facility] 07-29-2025 History of Presen t illness Narrative Images from the original note were not included. . [facility] [place] Note Patient name: Yenny Ding PCP: Mandy Asher MD CC: Follow-up chest CT HPI: Yenny Ding 69 year old female former [id number] smoker, quitting in 2004 with PMH significant for history of alcohol abuse, GERD, scoliosis, rheumatoid arthritis, asthma with COPD, DVT, mild bronchiectasis, osteoporosis. Pulmonary function test showed mild obstruction and elevated exhaled nitric oxide level. Therapy consists of Wixela, bronchopulmonary hygiene and 3 times a week azithromycin. Insurance deemed change in her inhaler therapy. She preferred Symbicort. She has a known CT right upper lobe groundglass nodule. She presents today for follow-up of her 6-month surveillance CT. no change in her groundglass opacity and no new suspicious findings. From a pulmonary standpoint she states that she feels great. She has not felt this good in a long time. She denies significant limiting dyspnea, chronic cough, mucus production, wheezing, chest pain. She has not been ill with any upper respiratory infections nor required hospitalization or ED visit. DME: [employer] 3 L at night DATA: COPD Assessment Test I never cough 0 1 2 3 4 5 I cough all the time; Score 0 I have no phlegm 0 1 2 3 4 5 My chest is completely full of phlegm; Score 0 My chest does not feel tight at all 0 1 2 3 4 5 My chest chest feels very tight; Score 0 When I walk up a hill or one flight of stairs I am not breathless 0 1 2 3 4 5 When I walk up a hill or one flight or stairs I am very breathless; Score 3 I am not limited doing any activities at home 0 1 2 3 4 5 I am very limited doing activities at home; Score 0 I am confident leaving my home despite my lung condition 0 1 2 3 4 5 I am not at all confident leaving my home because of my lung condition; Score 0 I sleep soundly 0 1 2 3 4 5 don't sleep soundly because of my lungs; Score 0 I have lots of energy 0 1 2 3 4 5 I have no energy at all; Score 2 Total Score: 5 Imaging / Diagnostic Studies: DATE OF EXAM: Sep 16 2024 11:21AM [facility] [id number] - CT CHEST WO IVCON / PROCEDURE REASON: multiple diagnoses CLINICAL HISTORY: Lung nodules. Comparison: CT chest on 02/27/2024 RESULT: Limitations: None. Lines, tubes, and devices: None. Lung parenchyma and airways: The central airways are patent. There is a stable 1.2 cm groundglass density in the right upper lobe, series 6 image 62. A few stable triangular densities noted in the right lower lobe, series 6 image 151. No new nodules identified. Mild emphysema is again demonstrated. There is stable biapical scarring and subpleural opacities. No mass lesion seen. Pleural space: No pleural effusion or pneumothorax. No pleural thickening. Lower neck, lymph nodes, and mediastinum: The imaged thyroid gland is normal. No lymphadenopathy in the supraclavicular, axillary, mediastinal, or hilar regions. Heart, pericardium, and thoracic vessels: The thoracic aorta and main pulmonary artery are normal in caliber. The cardiac chambers are normal in size. Punctate coronary artery atherosclerotic calcifications are noted, although the study is not optimized for coronary assessment. No pericardial effusion or thickening. Bones and soft tissues: No destructive bone lesion. Chest wall is Unremarkable. Upper abdomen: No abnormality in the imaged upper abdomen. Localizer images: No additional findings. CT 02/2024: I personally reviewed the images as well as with the patient which show stability of her groundglass opacity and no new findings PAST MEDICAL HISTORY Diagnosis Date Asthma-COPD overlap syndrome (HCC) Diverticulosis of colon (without mention of hemorrhage) DVT (deep venous thrombosis) (HCC) Dysplasia of cervix, unspecified Esophageal reflux Ground glass opacity present on imaging of lung Irritable bowel syndrome Lumbago Other and unspecified alcohol dependence, in remission Other emphysema (HCC) minimal Other genital herpes Paroxysmal ventricular tachycardia (HCC) 07/10/1999 Occurred in monitored unit while worked up for chest pain: heart cath wnl, isoproterenol provocation test unable to stimulate abnormal rhythm Pneumonia 02/03/2012 Rheumatoid arthritis (HCC) Scoliosis 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 fluticasone-salmeterol (WIXELA INHUB) 250-50 mcg/dose inhaler Inhale 1 puff as instructed two times a day. (Patient taking differently: Inhale 1 puff as instructed two times a day.) albuterol HFA (PROVENTIL HFA, VENTOLIN HFA) 90 mcg/actuation inhaler USE 2 INHALATIONS ORALLY ASINSTRUCTED EVERY 4 HOURS, NEEDED [place] 300 mg cap 1 cap(s) orally TWIE DAILY leucovorin (LEUCOVORIN) 15 mg tablet Take 15 mg by mouth one time a week. semaglutide 0.5 mg/0.5 mL (1 mg/mL) subcutaneous compounded injection Inject 0.5 mg subcutaneously one time a week. azithromycin (ZITHROMAX) 250 mg tablet Take one on Mon, Fri, Fri ipratropium bromide (ATROVENT) 42 mcg (0.06 %) nasal spray Use 1 [employer] [place] in the nose two times a day. vitamin B complex vit C no.3 (VITAMIN B COMP AND C NO.3 ORAL) Take 1 tablet by mouth two times a day. DULoxetine (CYMBALTA) 60 mg capsule Take 60 mg by mouth once daily. cycloSPORINE (RESTASIS MULTIDOSE) 0.05 % drop Use 1 Drop in both eyes once daily. vitamin D3-folic acid 2,500 unit- 1 mg tab Take 1 tablet by mouth once daily. miSOPROStol (CYTOTEC) 100 mcg tablet Take 100 mcg by mouth four times daily. with ASA chlorpheniramine (ALLER-CHLOR) 4 mg tablet Take 4 mg by mouth every 6 hours as needed. levocetirizine 5 mg tablet Take 5 mg by mouth once daily. OXYGEN, HOME THERAPY, Inhale 3 L/min as instructed as directed. OTC NUTRITIONAL SUPPLEMENT Take 1 tablet by mouth once daily. Biotin magnesium oxide 400 mg magnesium tab Take 1 tablet by mouth once daily. OTC NUTRITIONAL SUPPLEMENT Take 1 tablet by mouth once daily. [place] predniSONE 10 mg tablet pack Take by mouth once daily. (Patient taking differently: Take by mouth once daily. As needed for flare ups) esomeprazole (NEXIUM) 20 mg capsule Take 20 mg by mouth daily at 6 am. hydrOXYchloroQUINE (PLAQUENIL) 200 mg tablet Take 200 mg by mouth once daily. using 200mg alternating with 400mg every other day gabapentin (NEURONTIN) 300 mg capsule Take 300 mg by mouth three times a day. Will use 600mg at bedtime as needed oxyCODONE immediate release (PERCOLONE) 5 mg immediate release tablet cholecalciferol (VITAMIN D) 1,000 unit tab tablet Take 1,000 Units by mouth once daily. denosumab (PROLIA) 60 mg/mL syrg Inject 60 mg subcutaneously one time only. Twice yearly baclofen (LIORESAL) 10 mg tablet Take 10 mg by mouth daily at bedtime. valACYclovir (VALTREX) 500 mg tablet Take 500 mg by mouth once daily. POLYETHYLENE GLYCOL 3350 ORAL Take by mouth as needed. DAILY MULTIVITAMIN ORAL Take by mouth once daily. methotrexate sodium 25 mg/mL soln 12.5 mg one time a week. (Patient not taking: Reported on 11/30/2024) sulfaSALAzine (AZULFIDINE) 500 mg tablet Take 500 mg by mouth two times a day. Two tablets (1,000mg) twice daily (Patient not taking: Reported on 11/30/2024) celecoxib (CELEBREX) 200 mg capsule (Patient not taking: Reported on 06/17/2024) PHENYLEPHRINE/HYDROCODONE/CP (HYDROCODONE CP ORAL) Take by mouth. 5mg-no acetaminophen every 3-6 hours prn pain (Patient not taking: Reported on 06/17/2024) PSEUDOEPHEDRINE HCL (SUDAFED 12 HOUR ORAL) Take by mouth. (Patient not taking: Reported on 11/30/2024) Social History Tobacco Use Smoking status: Former Current packs/day: 1.00 Average packs/day: 1 pack/day for 30.0 years (30.0 ttl pk-yrs) Types: Cigarettes Smokeless tobacco: Never Tobacco comments: Quit 08/2004 Vaping Use Vaping status: Never Used Substance Use Topics Alcohol use: Yes Comment: only on vacation Drug use: No FAMILY HISTORY Problem Relation Age of Onset [...] WALL HERNIA 04/10/2016 S PACK PHACO 30K [id number] Right S SLING BLADDER STRESS EXERCISE REG 07/06/1999 stress test negative with excellent performance at 15 METS TX ECTOPIC W/O SALPING&/OOPHORECTOMY Ectopic WRIST Surgery 11 screws and plate PMH, Social history, family history and surgical history reviewed and updated ine EMR REVIEW OF SYSTEMS: CONSTITUTIONAL: No fevers, chills, nightsweats, unintended weight loss HEENT: Denies nasal congestion/sinus symptoms, allergy problems. CARDIOVASCULAR: No chest pain, dyspnea, palpitations, orthopnea, edema. PULM: See HPI MUSC-SKEL: No new joint pain, swelling, or erythema. INTEGUMENTARY: Easy bruising PHYSICAL EXAMINATION: BP 140/82 Pulse 81 Resp 16 Wt 128 lb (58.1kg) SpO2 94% General Appearance: Age-appropriate female, NAD. Skin: Skin color, texture, turgor normal, no suspicious rashes or lesions. Oropharynx: No oral lesions, thrush. Neck: No masses or adenopathy. Lungs: Not labored, normal to percussion, no wheezes or crackles. Heart: Regular rate and rhythm, no murmurs or gallops. Extremities: No edema or clubbing. Assessment/Plan: 1. Groundglass opacity on chest imaging -May be along the spectrum of adenocarcinoma in situ -Continued surveillance. Follow-up CT 1 year -Continue abstinence from tobacco 2. Asthma COPD overlap -Continue ICS/LABA with as needed albuterol 3. Former cigarette smoker - Former smoker with sequelae of COPD - Continue abstinence - Qualifies for lung cancer screening but is being actively surveilled for her groundglass opacity Melody Fernandez MD [facility] documented in this encounter [facility] 11-30-2024 Note HNO ID: [id number] Author: MELODY FERNANDEZ MD Service: ? Author Type: Physician Type: Progress Notes Filed: 11/30/2024 17:17 Note Text: . [facility] [place] Note Patient name: Yenny Ding PCP: Mandy Asher MD CC: Follow-up chest CT HPI: Yenny Ding 69 year old female former [id number] smoker, quitting in 2004 with PMH significant for history of alcohol abuse, GERD, scoliosis, rheumatoid arthritis, asthma with COPD, DVT, mild bronchiectasis, osteoporosis. Pulmonary function test showed mild obstruction and elevated exhaled nitric oxide level. Therapy consists of Wixela, bronchopulmonary hygiene and 3 times a week azithromycin. Insurance deemed change in her inhaler therapy. She preferred Symbicort. She has a known CT right upper lobe groundglass nodule. She presents today for follow-up of her 6-month surveillance CT. no change in her groundglass opacity and no new suspicious findings. From a pulmonary standpoint she states that she feels great. She has not felt this good in a long time. She denies significant limiting dyspnea, chronic cough, mucus production, wheezing, chest pain. She has not been ill with any upper respiratory infections nor required hospitalization or ED visit. DME: [employer] 3 L at night DATA: COPD Assessment Test I never cough 0 1 2 3 4 5 I cough all the time; Score 0 I have no phlegm 0 1 2 3 4 5 My chest is completely full of phlegm; Score 0 My chest does not feel tight at all 0 1 2 3 4 5 My chest chest feels very tight; Score 0 When I walk up a hill or one flight of stairs I am not breathless 0 1 2 3 4 5 When I walk up a hill or one flight or stairs I am very breathless; Score 3 I am not limited doing any activities at home 0 1 2 3 4 5 I am very limited doing activities at home; Score 0 I am confident leaving my home despite my lung condition 0 1 2 3 4 5 I am not at all confident leaving my home because of my lung condition; Score 0 I sleep soundly 0 1 2 3 4 5 don't sleep soundly because of my lungs; Score 0 I have lots of energy 0 1 2 3 4 5 I have no energy at all; Score 2 Total Score: 5 Imaging / Diagnostic Studies: DATE OF EXAM: Sep 16 2024 11:21AM [facility] 0541 - CT CHEST WO IVCON / PROCEDURE REASON: multiple diagnoses CLINICAL HISTORY: Lung nodules. Comparison: CT chest on 02/27/2024 RESULT: Limitations: None. Lines, tubes, and devices: None. Lung parenchyma and airways: The central airways are patent. There is a stable 1.2 cm groundglass density in the right upper lobe, series 6 image 62. A few stable triangular densities noted in the right lower lobe, series 6 image 151. No new nodules identified. Mild emphysema is again demonstrated. There is stable biapical scarring and subpleural opacities. No mass lesion seen. Pleural space: No pleural effusion or pneumothorax. No pleural thickening. Lower neck, lymph nodes, and mediastinum: The imaged thyroid gland is normal. No lymphadenopathy in the supraclavicular, axillary, mediastinal, or hilar regions. Heart, pericardium, and thoracic vessels: The thoracic aorta and main pulmonary artery are normal in caliber. The cardiac chambers are normal in size. Punctate coronary artery atherosclerotic calcifications are noted, although the study is not optimized for coronary assessment. No pericardial effusion or thickening. Bones and soft tissues: No destructive bone lesion. Chest wall is Unremarkable. Upper abdomen: No abnormality in the imaged upper abdomen. Localizer images: No additional findings. CT 02/2024: I personally reviewed the images as well as with the patient which show stability of her groundglass opacity and no new findings PAST MEDICAL HISTORY Diagnosis Date Asthma-COPD overlap syndrome (HCC) Diverticulosis of colon (without mention of hemorrhage) DVT (deep venous thrombosis) (HCC) Dysplasia of cervix, unspecified Esophageal reflux Ground glass opacity present on imaging of lung Irritable bowel syndrome Lumbago Other and unspecified alcohol dependence, in remission Other emphysema (HCC) minimal Other genital herpes Paroxysmal ventricular tachycardia (HCC) 07/10/1999 Occurred in monitored unit while worked up for chest pain: heart cath wnl, isoproterenol provocation test unable to stimulate abnormal rhythm Pneumonia 02/03/2012 Rheumatoid arthritis (HCC) Scoliosis 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 fluticasone-salmeterol (WIXELA INHUB) 250-50 mcg/dose inhaler Inhale 1 puff as instructed two times a day. (Patient taking differently: Inhale 1 puff as instructed two times a day.) albuterol HFA (PROVENTIL HFA, VENTOLIN HFA) 90 mcg/actuation inhaler USE 2 INHALATION (more content not included)... [facility] 09-16-2024 History of Presen t illness Narrative Radiology Service Progress Note PATIENT NAME: Yenny Ding DATE OF SERVICE: September 16, 2024 TIME: 2:13 PM PATIENT IDENTITY VERIFICATION COMPLETED USING TWO (2) IDENTIFIERS: Name and Date of confirmed by patient verbally. FALL SCREENING: Has the patient had 2 falls in the last year or 1 fall with injury or currently using an Ambulatory Assistive Device (Walker, Cane, Wheelchair, Crutches, etc.)? No PATIENT GENDER DATA: Assigned female at . status: : No status: NO. PATIENT RELEVANT IMPLANT DATA REVIEWED: Yes PATIENT PRESENTS WITH AN IMPLANTABLE OR ATTACHED BILL OF MATERIALS CLERK: No RADIOLOGY DEPARTMENT: CT; Exam(s) Completed: Chest PERIPHERAL IV DATA: Not applicable SIGNED BY: RT Camille(Kayla) September 16, 2024 2:13 PM documented in this encounter [facility] 09-16-2024 Note HNO ID: [id number] Author: AUDRA CAMARENA RT(Kayla) Service: ? Author Type: Back Maker Type: Progress Notes Filed: 09/16/2024 14:13 Note Text: Radiology Service Progress Note PATIENT NAME: Yenny Ding DATE OF SERVICE: September 16, 2024 TIME: 2:13 PM PATIENT IDENTITY VERIFICATION COMPLETED USING TWO (2) IDENTIFIERS: Name and Date of confirmed by patient verbally. FALL SCREENING: Has the patient had 2 falls in the last year or 1 fall with injury or currently using an Ambulatory Assistive Device (Walker, Cane, Wheelchair, Crutches, etc.)? No PATIENT GENDER DATA: Assigned female at . status: : No status: NO. PATIENT RELEVANT IMPLANT DATA REVIEWED: Yes PATIENT PRESENTS WITH AN IMPLANTABLE OR ATTACHED BILL OF MATERIALS CLERK: No RADIOLOGY DEPARTMENT: CT; Exam(s) Completed: Chest PERIPHERAL IV DATA: Not applicable SIGNED BY: RT Camille(R) September 16, 2024 2:13 PM [facility] 08-11-2024 Radiology Diagnostic study note [facility] Imaging Services [address] [place] [address] Liver MR#: [id number] Acct: [id number] Name: YENNY DING Rep #: [id number] : 1955 F 69 From: Dacia Reeves MD PCP: Dr. Mandy Asher MD Status: REG CLI Study:Liver Date of Exam: 08/11/24 Exam# [id number] Ordering Dr: Rosa Dave MD PROCEDURE: LIVER (USLI), 08/11/2024 REASON FOR EXAM: ELEVATED LI ENZYMES COMPARISON: None FINDINGS: Examination considerably limited due to shadowing bowel gas. Liver: Grossly unremarkable. 12.3 cm in length. Gallbladder: No visualized stones, sludge, wall thickening or pericholecystic fluid. Reportedly, sonographic Pinto's was negative. Biliary tree: Unremarkable. CBD measures 5 mm. Pancreas: Partially obscured by shadowing bowel gas, grossly unremarkable as visualized. Right kidney: Not well seen due to shadowing bowel gas. Other: No visualized free fluid. US/Liver IMPRESSION: 1. Grossly unremarkable appearance of the hepatic parenchyma. No biliary dilatation. 2. Additional description as above. Reading Location: [id number] CC: Dr. Mandy Asher MD; Dr. Rosa Dave MD ~ Metal Furniture Repairer: Signed [facility] 08-10-2024 Telephone encounter Note [facility] 06/17/24. Patient currently using Symbicort which is now non-formulary. [facility] is requesting Jorge or Reji Brumfield LPN [facility] 08-10-2024 Miscellaneous Notes LELIA 06/17/24. Patient currently using Symbicort which is now non-formulary. [facility] is requesting Wixela or Breo Mary Brumfield LPN documented in this encounter [facility] 07-22-2024 Evaluation note Diagnosis Onset Date Resolution Cervical radiculopathy acute [facility] 2024 1:23pm [facility] Work Phone: [phone] 100-951503-06-2025 Radiology Diagnostic study note [facility] Imaging Services [address] [place] [address] Cerv Spine Obl/Flex/Ext Comp MR#: [id number] Acct: [id number] Name: YENNY DING Rep #: [id number] : 1955 F 69 From: Manjeet Viramontes MD PCP: Dr. Mandy Asher MD Status: REG CLI Study:Cerv Spine Obl/Flex/Ext Comp Date of Ex am: 07/08/24 Exam# [id number] Ordering Dr: Vinny Lanza MD PROCEDURE: CERV SPINE OBL/FLEX/EXT COMP REASON FOR EXAM: Jaw and neck pain. TECHNIQUE: 6 views of the cervical spine were obtained including flexion-extension and oblique views.. COMPARISON: Comparison is made with prior study dated December 26, 2022. FINDINGS: Normal vertebral body heights. No visible fracture. Mild degree of disc space narrowing at the C5-C6 and C6-C7 levels with anterior spondylosis at the C6-C7 level. No significant neural foraminal stenosis is seen. Facet joint osteoarthritis. Normal alignment. Prevertebral soft tissues are unremarkable. RAD/Cerv Spine Obl/Flex/Ext Comp IMPRESSION: MILD CERVICAL DEGENERATIVE CHANGES. Reading Location: [facility] CC: Dr. Mandy Asher MD; Dr. Vinny Lanza MD ~ Metal Furniture Repairer: Signed [facility]03-03-2025 Telephone encounter Note* Telephone Encounter - Mary Brumfield LPN - 07/05/2024 12:53 PM EST [facility] 06/17/24 Patient phones requesting refills as follows: Requested Prescriptions Pending Prescriptions Disp Refills albuterol HFA (PROVENTIL HFA, VENTOLIN HFA) 90 mcg/actuation inhaler [Pharmacy Med Name: ALBUTEROL AER HFA (PV)] 20.1 g 2 Sig: USE 2 INHALATIONS ORALLY ASINSTRUCTED EVERY 4 HOURS, NEEDED Please review and advise. Mary Brumfield LPN [facility]03-03-2025 Miscellaneous Notes* Telephone Encounter - Mary Brumfield LPN - 07/05/2024 12:53 PM EST [facility] 06/17/24 Patient phones requesting refills as follows: Requested Prescriptions Pending Prescriptions Disp Refills albuterol HFA (PROVENTIL HFA, VENTOLIN HFA) 90 mcg/actuation inhaler [Pharmacy Med Name: ALBUTEROL AER HFA (PV)] 20.1 g 2 Sig: USE 2 INHALATIONS ORALLY ASINSTRUCTED EVERY 4 HOURS, NEEDED Please review and advise. Mary Brumfield LPN [facility] History of Present illness Narrative* Melody Fernandez MD - 06/17/2024 10:30 AM EST Images from the original note were not included. . Respiratory [place] Note Patient name: Yenny Ding PCP: Mandy Asher MD CC: Follow-up recent testing HPI: Yenny Ding 69 year old female former 30 pack year smoker, quit in 2004 with PMH significant for h/o alcohol abuse, GERD, scoliosis, RA, asthma COPD, DVT, osteoporosis, mild bronchiectasis, recently seen to establish care. PFTs showed mild obstruction with elevated Dylan. At initial visit, restarted Symbicort, continued bronchopulmonary hygiene, continued TIW azithromycin and updated chestCT to evaluate for possible NTM. Chest CT was pertinent for a 6 mm ground glass nodule, minimal upper lobe mainly paraseptal and minimal bronchiectasis. Recommended [address] she has beencompliant with her Symbicort. She denies any chronic cough, mucus production. No wheezing, shortness of breath, nocturnal symptoms. No recent upper respiratory infection, ED visit or hospitalization. DME: [employer] 3 L nocturnal DATA: PFT 02/2024: Review of spirometry shows mild obstruction improvement postbronchodilator Imaging / Diagnostic Studies: DATE OF EXAM: Feb 27 2024 12:03PM [facility] 0541 - CT CHEST WO IVCON / IMPRESSION: 1. Emphysema, with mild diffuse bronchiectasis. Groundglass attenuation nodular opacity is seen within the right upper lobe, measuring approximately 9 mm. 2. No kamala lymphadenopathy is seen within the chest. CT of the chest reviewed as well as with the patient with interpretation per HPI PAST MEDICAL HISTORY Diagnosis Date [...] Other: See Comments Heart racing Tramadol Vomiting furosemide (LASIX) 20 mg tablet Take 20 mg by mouth once daily. (Patient taking differently: Take 20 mg by mouth once daily. As needed for edema) [place] 300 mg cap 1 cap(s) orally TWIE DAILY leucovorin (LEUCOVORIN) 15 mg tablet Take 15 mg by mouth one time a week. methotrexate sodium 25 mg/mL soln 12.5 mg one time a week. semaglutide 0.5 mg/0.5 mL (1 mg/mL) subcutaneous compounded injection Inject 0.5 mg subcutaneously one time a week. azithromycin (ZITHROMAX) 250 mg tablet Take one on Mon, Wed, Fri ipratropium bromide (ATROVENT) 42 mcg (0.06 %) nasal spray Use 1 [employer] [place] in the nose two times a day. vitamin B complex vit C no.3 (VITAMIN B COMP AND C NO.3 ORAL) Take 1 tablet by mouth two times a day. DULoxetine (CYMBALTA) 60 mg capsule Take 60 mg by mouth once daily. cycloSPORINE (RESTASIS MULTIDOSE) 0.05 % drop Use 1 Drop in both eyes once daily. vitamin D3-folic acid 2,500 unit- 1 mg tab Take 1 tablet by mouth once daily. chlorpheniramine (ALLER-CHLOR) 4 mg tablet Take 4 mg by mouth every 6 hours as needed. predniSONE 10 mg tablet pack Take by mouth once daily. (Patient taking differently: Take by mouth once daily. As needed for flare ups) budesonide-formoterol (SYMBICORT) 160-4.5 mcg/actuation inhaler Inhale 2 Puffs as instructed two times a day. sulfaSALAzine (AZULFIDINE) 500 mg tablet Take 500 mg by mouth two times a day. Two tablets (1,000mg) twice daily esomeprazole (NEXIUM) 20 mg capsule Take 20 mg by mouth daily at 6 am. hydrOXYchloroQUINE (PLAQUENIL) 200 mg tablet Take 200 mg by mouth once daily. using 200mg alternating with 400mg every other day cholecalciferol (VITAMIN D) 1,000 unit tab tablet Take 1,000 Units by mouth once daily. denosumab (PROLIA) 60 mg/mL syrg Inject 60 mg subcutaneously one time only. Twice yearly baclofen (LIORESAL) 10 mg tablet Take 10 mg by mouth daily at bedtime. valACYclovir (VALTREX) 500 mg tablet Take 500 mg by mouth once daily. POLYETHYLENE GLYCOL 3350 ORAL Take by mouth as needed. PSEUDOEPHEDRINE HCL (SUDAFED 12 HOUR ORAL) Take by mouth. DAILY MULTIVITAMIN ORAL Take by mouth once daily. albuterol HFA (PROVENTIL HFA, VENTOLIN HFA) 90 mcg/actuation inhaler Inhale 2 Puffs as instructed every 4 hours as needed. fluticasone propionate (FLONASE NASAL) Use 2 Sprays in the nose once daily. miSOPROStol (CYTOTEC) 100 mcg tablet Take 100 mcg by mouth four times daily. with ASA levocetirizine 5 mg tablet Take 5 mg by mouth once daily. OXYGEN, HOME THERAPY, Inhale 3 L/min as instructed as directed. OTC NUTRITIONAL SUPPLEMENT Take 1 tablet by mouth once daily. Biotin magnesium oxide 400 mg magnesium tab Take 1 tablet by mouth once daily. OTC NUTRITIONAL SUPPLEMENT Take 1 tablet by mouth once daily. [place] (Patient not taking: Reported on 06/17/2024) celecoxib (CELEBREX) 200 mg capsule (Patient not taking: Reported on 06/17/2024) gabapentin (NEURONTIN) 300 mg capsule Take 300 mg by mouth three times a day. Will use 600mg at bedtime as needed oxyCODONE immediate release (PERCOLONE) 5 mg immediate release tablet PHENYLEPHRINE/HYDROCODONE/CP (HYDROCODONE CP ORAL) Take by mouth. 5mg-no acetaminophen every 3-6 hours prn pain (Patient not taking: Reported on 06/17/2024) K+Lksx-Lwizputa-Qtbq-ManPoly (ORAMAGICRX) mwsh Use as instructed three times daily. (Patient not taking: Reported on 06/17/2024) ipratropium-albuterol (COMBIVENT RESPIMAT) 20-100 mcg/actuation mist Inhale as instructed as needed. (Patient not taking: Reported on 06/17/2024) Social History Tobacco Use Smoking status: Former Current packs/day: 1.00 Average packs/day: 1 pack/day for 30.0 years (30.0 ttl pk-yrs) Types: Cigarettes Smokeless tobacco: Never Tobacco comments: Quit 08/2004 Vaping Use Vaping status: Never Used Substance Use Topics Alcohol use: Yes Comment: only on vacation Drug use: No PMH, Social history, family history and surgical history reviewed and updated in EMR REVIEW OF SYSTEMS: CONSTITUTIONAL: No fevers, chills, nightsweats, unintended weight loss HEENT: Denies nasal congestion/sinus symptoms, allergy problems. CARDIOVASCULAR: No chest pain, dyspnea, palpitations, edema. PULM: GI: No reflux INTEGUMENTARY: No new skin changes PHYSICAL EXAMINATION: BP 100/70 Pulse 78 Resp 17 Wt 128 lb (58.1kg) SpO2 95% General Appearance: Age-appropriate female, NAD. Skin: Skin color, texture, turgor normal, no suspicious rashes or lesions. Head: Normocephalic, no masses, lesions, tenderness or abnormalities. Oropharynx: No oral lesions or thrush. Lungs: Not labored, normal to percussion, no wheezes or crackles. Heart: Regular rate and rhythm, no murmurs or gallops. Extremities: No edema clubbing. Assessment/Plan: 1. Groundglass nodule on chest imaging -Require surveillance CT at 6 months 2. Asthma COPD overlap -Symptoms currently controlled with Symbicort -No need for rescue inhaler 3. Bronchiectasis, uncomplicated -Bronchopulmonary hygiene -Continue 3 times weekly azithromycin 4. Pulmonary emphysema -Former smoker with minimal emphysema -Continue abstinence from tobacco -Does not qualify for lung cancer screening based on duration of smoking cessation but qualifies for surveillance CT based on groundglass opacity Melody Fernandez MD Respiratory [place] [facility] NoteHNO ID: [id number] Author: MELODY FERNANDEZ MD Service: ? Author Type: Physician Type: Progress Notes Filed: 06/17/2024 12:19 Note Text: . Respiratory [place] Note Patient name: Yenny Ding PCP: Mandy Asher MD CC: Follow-up recent testing HPI: Yenny Ding 69 year old female former 30 pack year smoker, quit in 2004 with PMH significant for h/o alcohol abuse, GERD, scoliosis, RA, asthma COPD, DVT, osteoporosis, mild bronchiectasis, recently seen to establish care. PFTs showed mild obstruction with elevated Dylan. At initial visit, restarted Symbicort, continued bronchopulmonary hygiene, continued TIW azithromycin and updated chest CT to evaluate for possible NTM. Chest CT was pertinent for a 6 mm ground glass nodule, minimal upper lobe mainly paraseptal and minimal bronchiectasis. Recommended [address] she has been compliant with her Symbicort. She denies any chronic cough, mucus production. No wheezing, shortness of breath, nocturnal symptoms. No recent upper respiratory infection, ED visit or hospitalization. DME: [employer] 3 L nocturnal DATA: PFT 02/2024: Review of spirometry shows mild obstruction improvement postbronchodilator Imaging / Diagnostic Studies: DATE OF EXAM: Feb 27 2024 12:03PM [facility] 0541 - CT CHEST WO IVCON / IMPRESSION: 1. Emphysema, with mild diffuse bronchiectasis. Groundglass attenuation nodular opacity is seen within the right upper lobe, measuring approximately 9 mm. 2. No kamala lymphadenopathy is seen within the chest. CT of the chest reviewed as well as with the patient with interpretation per HPI PAST MEDICAL HISTORY Diagnosis Date [...] Other: See Comments Heart racing Tramadol Vomiting furosemide (LASIX) 20 mg tablet Take 20 mg by mouth once daily. (Patient taking differently: Take 20 mg by mouth once daily. As needed for edema) [place] 300 mg cap 1 cap(s) orally TWIE DAILY leucovorin (LEUCOVORIN) 15 mg tablet Take 15 mg by mouth one time a week. methotrexate sodium 25 mg/mL soln 12.5 mg one time a week. semaglutide 0.5 mg/0.5 mL (1 mg/mL) subcutaneous compounded injection Inject 0.5 mg subcutaneously one time a week. azithromycin (ZITHROMAX) 250 mg tablet Take one on Mon, Wed, Fri ipratropium bromide (ATROVENT) 42 mcg (0.06 %) nasal spray Use 1 [employer] [place] in the nose two times a day. vitamin B complex vit C no.3 (VITAMIN B COMP AND C NO.3 ORAL) Take 1 tablet by mouth two times a day. DULoxetine (CYMBALTA) 60 mg capsule Take 60 mg by mouth once daily. cycloSPORINE (RESTASIS MULTIDOSE) 0.05 % drop Use 1 Drop in both eyes once daily. vitamin D3-folic acid 2,500 unit- 1 mg tab Take 1 tablet by mouth once daily. chlorpheniramine (ALLER-CHLOR) 4 mg tablet Take 4 mg by mouth every 6 hours as needed. predniSONE 10 mg tablet pack Take by mouth once daily. (Patient taking differently: Take by mouth once daily. As needed for flare ups) budesonide-formoterol (SYMBICORT) 160-4.5 mcg/actuation inhaler Inhale 2 Puffs as instructed two times a day. sulfaSALAzine (AZULFIDINE) 500 mg tablet Take 500 mg by mouth two times a day. Two tablets (1,000mg) twice daily esomeprazole (NEXIUM) 20 mg capsule Take 20 mg by mouth daily at 6 am. hydrOXYchloroQUINE (PLAQUENIL) 200 mg tablet Take 200 mg by mouth once daily. using 200mg alternating with 400mg every other day cholecalciferol (VITAMIN D) 1,000 unit tab tablet Take 1,000 Units by mouth once daily. denosumab (PROLIA) 60 mg/mL syrg Inject 60 mg subcutaneously one time only. Twice yearly baclofen (LIORESAL) 10 mg tablet Take 10 mg by mouth daily at bedtime. valACYclovir (VALTREX) 500 mg tablet Take 500 mg by mouth once daily. POLYETHYLENE GLYCOL 3350 ORAL Take by mouth as needed. PSEUDOEPHEDRINE HCL (SUDAFED 12 HOUR ORAL) Take by mouth. DAILY MULTIVITAMIN ORAL Take by mouth once daily. albuterol HFA (PROVENTIL HFA, VENTOLIN HFA) 90 mcg/actuation inhaler Inhale 2 Puffs as instructed every 4 hours as needed. fluticasone propionate (FLONASE NASAL) Use 2 Sprays in the nose once daily. miSOPROStol (CYTOTEC) 100 mcg tablet Take 100 mcg by mouth four times daily. with ASA levocetirizine 5 mg tablet Take 5 mg by mouth once daily. OXYGEN, (more content not included)...[facility]12-06-2024 Telephone encounter Note* Telephone Encounter - Mary Brumfield LPN - 04/09/2024 1:33 PM EST [facility] 02/17/24 Patient phones requesting refills as follows: Requested Prescriptions Pending Prescriptions Disp Refills albuterol HFA (PROVENTIL HFA, VENTOLIN HFA) 90 mcg/actuation inhaler 3 Each 2 Sig: Inhale 2 Puffs as instructed every 4 hours as needed. azithromycin (ZITHROMAX) 250 mg tablet 39 tablet 2 Sig: Take one on Mon, Wed, Fri ipratropium bromide (ATROVENT) 42 mcg (0.06 %) nasal spray 45 mL 2 Sig: Use 1 [employer] [place] in the nose two times a day. Please review and advise. Mary Brumfield LPN [facility]12-06-2024 Miscellaneous Notes* Telephone Encounter - Mary Brumfield LPN - 04/09/2024 1:33 PM EST [facility] 02/17/24 Patient phones requesting refills as follows: Requested Prescriptions Pending Prescriptions Disp Refills albuterol HFA (PROVENTIL HFA, VENTOLIN HFA) 90 mcg/actuation inhaler 3 Each 2 Sig: Inhale 2 Puffs as instructed every 4 hours as needed. azithromycin (ZITHROMAX) 250 mg tablet 39 tablet 2 Sig: Take one on Mon, Wed, Fri ipratropium bromide (ATROVENT) 42 mcg (0.06 %) nasal spray 45 mL 2 Sig: Use 1 [employer] [place] in the nose two times a day. Please review and advise. Mary Brumfield LPN documented [facility] Telephone encounter Note * Telephone Encounter - Amanda Kramer - 03/03/2024 10:00 AM EDT 1st call attempt, left vm [facility]10-30-2024 Miscellaneous Notes* Telephone Encounter - Amanda Kramer - 03/03/2024 10:00 AM EDT 1st call attempt, left vm * Telephone Encounter - Melody Fernandez MD - 03/03/2024 8:44 AM EDT Left voicemail message and send MyChart message. Old findings have resolved. Has a RUL gorund glassnodule that will need a surveillance chest CT in 6 months. Placed order. documented in this encounter[facility]24 Telephone encounter Note * Telephone Encounter - Melody Fernandez MD - 03/03/2024 8:44 AM EDT Left voicemail message and send MyChart message. Old findings have resolved. Has a RUL gorund glassnodule that will need a surveillance chest CT in 6 months. Placed order. [facility] History of Present illness Narrative* Audra Camarena RT(R) - 02/27/2024 11:40 AM EDT Radiology Service Progress Note PATIENT NAME: Yneny Ding DATE OF SERVICE: February 27, 2024 TIME: 4:06 PM PATIENT IDENTITY VERIFICATION COMPLETED USING TWO (2) IDENTIFIERS: Name and Date of confirmedby patient verbally. FALL SCREENING: Has the patient had 2 falls in the last year or 1 fall with injury or currently using an Ambulatory Assistive Device (Walker, Cane, Wheelchair, Crutches, etc.)? No PATIENT GENDER DATA: Female. status: : No status: NO. PATIENT RELEVANT IMPLANT DATA REVIEWED: Yes PATIENT PRESENTS WITH AN IMPLANTABLE OR ATTACHED BILL OF MATERIALS CLERK: No RADIOLOGY DEPARTMENT: CT; Exam(s) Completed: Chest PERIPHERAL IV DATA: Not applicable SIGNED BY: RT Camille(R) February 27, 2024 4:06 PM documented in this encounterMet[facility]10-25-2024 NoteHNO ID: [id number] Author: AUDRA CAMARENA RT(Kayla) Service: ? Author Type: Back Maker Type: Progress Notes Filed: 02/27/2024 16:06 Note Text: Radiology Service Progress Note PATIENT NAME: Yenny Ding DATE OF SERVICE: February 27, 2024 TIME: [...] PATIENT PRESENTS WITH AN IMPLANTABLE OR ATTACHED BILL OF MATERIALS CLERK: No RADIOLOGY DEPARTMENT: CT; Exam(s) Completed: Chest PERIPHERAL IV DATA: Not applicable SIGNED BY: RT Camille(R) February 27, 2024 4:06 [facility]10-15-2024 History of Present illness Narrative* Melody Fernandez MD - 02/17/2024 12:45 PM EDT Images from the original note were not included. . Respiratory [place] Note Patient name: Yenny Ding PCP: Mandy Asher MD Referring Physician: Self CC: asthma/COPD/bronchiectasis HPI: Yenny Ding 69 year old female former 30 pack year smoker, quit in 2004 with PMH significant for h/o alcohol abuse, GERD, scoliosis, rheumatoid arthritis, chronic sinus disease, asthma with COPD, DVT was on Eliquis (she stopped on her own due to cost of medication), osteoporosis presents to establish care as her commercial loan specialist left the practice. She does not have [...] this time. She decided to seek care asshe has noted some increased shortness of breath, [...] Imaging / Diagnostic Studies: 2020: CT chest [facility] 2019: I personally reviewed the images with description per HPI PAST MEDICAL HISTORY Diagnosis Date Asthma-COPD overlap syndrome (HCC) Diverticulosis of colon (without mention of hemorrhage) DVT (deep venous thrombosis) ([facility]) Dysplasia of cervix, unspecified Esophageal reflux Irritable [...] naloxone 4 mg/actuation nasal spray (NARCAN) 1 [place] by nasal (alternating) route as needed for known or suspected opioid overdose. Use 1 spray in one nostril as needed for overdose. May repeat every2 to 3 min in alternating nostrils until medical assistance is available albuterol HFA 90 mcg/actuation HFA Inhale 2 Puffs as instructed as needed. OTC NUTRITIONAL SUPPLEMENT Take 1 tablet by mouth once daily. Biotin magnesium oxide 400 mg magnesium tab Take 1 tablet by mouth once daily. OTC NUTRITIONAL SUPPLEMENT Take 1 tablet by mouth once daily. [place] predniSONE 10 mg tablet pack Take by mouth once daily. azithromycin (ZITHROMAX) 250 mg tablet Take one on Mon, Wed, Fri albuterol HFA (PROVENTIL HFA, VENTOLIN HFA) 90 mcg/actuation inhaler Inhale 2 Puffs as instructed every 4 hours as needed. ipratropium bromide (ATROVENT) 42 mcg (0.06 %) nasal spray Use 1 [employer] [place] in the nose two times a day. [...] 5mg-no acetaminophen every 3-6 hours prn pain K+Qdku-Qfagypvs-Dnva-ManPoly (ORAMAGICRX) mwsh Use as instructed three times [...] WALL HERNIA 04/10/2016 S PACK PHACO 30K [id number] Right S SLING BLADDER STRESS EXERCISE REG [...] which included preparing to see the patient, [id number] patient care, obtaining and/or reviewing separately obtained history, performing a medically appropriate examination, ordering medications, tests, or procedures, and independently inter preting results (not separately reported). Melody Fernandez MD Respiratory [place] [facility] NoteHNO ID: [id number] Author: MELODY FERNANDEZ MD Service: ? Author Type: Physician Type: Progress Notes Filed: 02/17/2024 16:01 Note Text: . Respiratory [place] Note Patient name: Yenny Ding PCP: Mandy Asher MD Referring Physician: Self CC: asthma/COPD/bronchiectasis HPI: Yenny Ding 69 year old female former 30 pack year smoker, quit in 2004 with PMH significant for h/o alcohol abuse, GERD, scoliosis, rheumatoid arthritis, chronic sinus disease, asthma with COPD, DVT was on Eliquis (she stopped on her own due to cost of medication), osteoporosis presents to establish care as her commercial loan specialist left the practice. She does not have [...] Imaging / Diagnostic Studies: 2020: CT chest [facility] 2019: I personally reviewed the images with description per HPI PAST MEDICAL HISTORY Diagnosis Date Asthma-COPD overlap syndrome (HCC) Diverticulosis of colon (without mention of hemorrhage) DVT (deep venous thrombosis) ([facility]) Dysplasia of cervix, unspecified Esophageal reflux Irritable [...] naloxone 4 mg/actuation nasal spray (NARCAN) 1 [employer] [place] by nasal (alternating) route as needed for [...] 1 tablet by mouth once daily. [place] predniSONE 10 mg tablet pack Take by mouth once daily. azithromycin (ZITHROMAX) 250 mg tablet Take one on Mon, Fri, Fri albuterol HFA (PROVENTIL HFA, VENTOLIN HFA) 90 mcg/actuation inhaler Inhale 2 Puffs as instructed every 4 hours as needed. ipratropium bromide (ATROVENT) 42 mcg (0.06 %) nasal spray Use 1 [employer] [place] in the nose two times a day. [...] mouth every 4 hours (more content not included)...[facility]10-15-2024 Note HNO ID: [id number] Author: EDGAR NOLAN RPFT Service: ? Author Type: Respiratory Therapist Type: Progress Notes Filed: 02/17/2024 11:53 Note Text: PULM FUNCTION: Provider: Melody Fernandez MD Assisting Tech: Edgar Nolan RPFT [facility]pirometry w/BD: 1 [facility] of Present illness Narrative * Edgar Nolan RPFT - 02/17/2024 11:51 AM EDT PULM FUNCTION: Provider: Melody Fernandez MD Assisting Tech: Edgar Nolan RPFT Spirometry w/BD: 1 DLCO: 1 documented in this encounter[facility]23 Discharge summary Author Nita Cho [facility] August 15, 2022 11:39am Note Date/Time August 15, 2022 11: 39am [facility] Physical Therapy [facility] [address] [place] [address] / REHABILITATION SERVICES DISCHARGE SUMMARY MR#: [id number] Acct: [id number] Name: YENNY DING Rep #: [id number] : 1955 67 From: Nita Cho PT, Cert. MDT Referring Dr.: Dr. Mandy Asher MD Status: REG RCR Insurance: MEDICARE PART A B [facility] It has been my pleasure to treat YENNY DING referred by Dr. Mandy Asher MD, with the diagnosis of SPINAL STENOSIS AND R BUTTOCK PAIN for a total of 9 visit(s). Discharge Date: 08/15/22 Please see the following information for a summary of their discharge status. Subjective: PATIENT REPORTS SHE HAS BEEN VERY SICK WITH INTESTINAL FLU BUT GETTING BETTER NOW. PATIENT REPORTS SHE HAS NOT FOLLOWED UP WITH DR. ASHER ABOUT HER BACK PAIN SINCE STARTING PT AND SHE HAS NOT HAD BACK X-RAYS SINCE THIS FLARE UP STARTED. SHE REPORTS HER PAIN WAS GETTING BETTER WITH AQUATIC THERAPY PRIOR TO GETTING SICK. STATES SHE HASN'T BEEN DOING ANYTHING SINCE GETTING SICK. GOING TO [place] AUGUST 29 FOR 2 WKS. STATES SHE WILL HAVE ACCESS TO A POOL AND THE [facility] AND CAN CONTINUE HER EX'S THERE. STATES SHE FEELS GOOD ENOUGH NOW THAT SHE DOES NOT NEED TO CONTACT HER SURGEON. Bilateral Back Pain Intensity (Out of 10): 3 Lumbar spine Pain Intensity (Out of 10): 5 % Improvement: 65 Objective/Function: PATIENT WAS SEEN TODAY FOR RE-ASSESSMENT OF PROGRESS TOWARD THE SET PT GOALS AND THE NEED FOR FURTHER PHYSICAL THERAPY VS READINESS FOR DISCHARGE. UPON EXAM TODAY: STRENGTH: R HIP 4/5, L HIP 4-/5, DAR KNEES 5/5, DAR ANKLES 5/5. Reflexes: R QUAD 2/3, L QUAD 1/3, DAR ACHILLES - ABSENT. Dural Signs: NEGATIVE DAR LE'S. Lumbar mvmt loss: flex - MIN. ext - JOLENE. R SG - MOD. L SG - MOD. PATIENT DENIES INCREASED PAIN WITH LUMBAR ROM TESTING ALL PLANES. Core strength: POOR Goal 1:: DECREASE C/O LOW BACK PAIN, DAR BUTTOCK PAIN AND L GROIN PAIN. Goal Progress: Goal Met Goal 2:: IMPROVE PERSONAL CARE, LIFTING, WALKING, SITTING, STANDING, SOCIAL LIFE, TRAVEL AND HOMEMAKING FUNCTION Goal Progress: Goal Met Goal 3:: INSTRUCT IN PROPHYLAXIS Goal Progress: Goal Met Plan: D/C. PATIENT WILL DISCUSS FURTHER THERAPY WITH HER PCP NEEDED UPON RETURN FROM [place]. If there are questions or concerns regarding this patient's physical therapy, please feel free to call me at [phone]. Thank you for the referral of thispatient. Sincerely, Nita Cho, PT, Cert MDT Balance/Gait/Functional tests - Balance/Special Test Scores Oswestry Low Back Score: 14 <Electronically signed by Deep Miramontes PT. MDT> 08/15/22 1139 CC: Dr. Mandy Asher MD ~ MICHELL Signed [facility] Work Phone: Evaluation note* Diagnosis Onset Date Resolution Status Asthma chronic Bronchiectasis chronic [facility] Work Phone: Evaluation noteNo assessment information available [facility] Work Phone: Evaluation note* Diagnosis Onset Date Resolution Status Encounter for routine gynecological examination noneactive [facility] Work Phone: Evaluation note* Diagnosis Onset Date Resolution Status Encounter for routine gynecological examination noneactive Asthma chronic Bronchiectasis chronic Scoliosis of thoracolumbar spine chronic [facility] Work Phone: Evaluation note* Diagnosis Onset Date Resolution Status Asthma chronic Bronchiectasis chronic Scoliosis of thoracolumbar spine chronic Arthritis chronic Asthma chronic Bronchiectasis chronic [facility] Work Phone: Evaluation note* Diagnosis Onset Date Resolution Status Arthritis chronic Asthma chronic Bronchiectasis chronic [facility] Work Phone: Evaluation note* Diagnosis Bronchiectasis without complication (HCC) Bronchiectasis without acute exacerbation [facility] Diagnosis Bronchiectasis without complication (HCC) Bronchiectasis without acute exacerbation Bronchiectasis without complication (HCC) Bronchiectasis without acute exacerbation Asthma-COPD overlap syndrome (HCC)- Primary Bronchiectasis without complication (HCC) Bronchiectasis without acute exacerbation Lung nodules Other nonspecific abnormal finding of lung field Former cigarette smoker Personal history of tobacco use, presenting hazards to health [facility] Diagnosis Bronchiectasis without complication (HCC) Bronchiectasis without acute exacerbation Lung nodules Other nonspecific abnormal finding of lung field [facility] encounter [facility]* Diagnosis Lung nodules- Primary Other nonspecific abnormal finding of lung field Ground glass opacity present on imaging of lung documented [facility] this encounter [facility]* Diagnosis Ground glass opacity present on imaging of lung- Primary Asthma-COPD overlap syndrome (HCC) Bronchiectasis without complication (HCC) Bronchiectasis without acute exacerbation Pulmonary emphysema, unspecified emphysema type (HCC) documented in this encounter [facility] note* Diagnosis Lung nodules Other nonspecific abnormal finding of lung field Ground glass opacity present on imaging of lung [facility]* Diagnosis Ground glass opacity present on imaging of lung- Primary Asthma-COPD overlap syndrome (HCC) Former smoker Personal history of tobacco use, presenting hazards to health documented in this encounter [facility] for referral (narrative)No reason for referral information availableWMadison Health Work Phone: Summary Purpose Family History Relationship Condition Age at Onset Recorded Date/T vita mother Malignant neoplasm Unknown sister Malignant neoplasm Unknown Asthma Unknown grandfather Coronary artery disease Unknown grandmother Arthritis Unknown father Hypertension Unknown Advance Directives Advance Directive Response Recorded Date/ Time Advance Directives Yes January 12:40pm Living Will No June 18 11:22am Power of Tanning Salon Attendant No June 18, 2021 11:22am Advance Directive Response Recorded Date/ Time Advance Directives Yes January 12:40pm Living Will No October 31, 2021 11:56pm Power of Tanning Salon Attendant No October 31 11:56pm Advance Directive Response Recorded Date/ Time Advance Directives Yes January 11:40am Living Will No October 31, 2021 10:56pm Power of Tanning Salon Attendant No October 31 10:56pm Advance Directive Response Recorded Date/ Time Advance Directives Yes January 12:40pm Chief Complaint and Reason for Visit Chief Complaint r/s appt N/V/D ATTN IAC'S - DIZZINESS Reason for Visit Asthma Bronchiectasis Chief Complaint ATTN IAC'S - DIZZINE SS wound Chief Complaint ATTN IAC'S - DIZZINE SS wound 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 Reason for Visit Encounter for routin e gynecological examination Chief Complaint ATTN IAC'S - DIZZINE SS wound 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 RT BUTTOCK PAIN. RX HERE Reason for Visit Arthritis Asthma Bronchiectasis Chief Complaint PAIN- COPY PCP SPINAL STENOSIS. RT BUTTOCK PAIN. RX HERE Chief Complaint PAIN- COPY PCP SPINAL STENOSIS. RT BUTTOCK PAIN. RX HERE PAIN- COPY PCP Chief Complaint SPINAL STENOSIS. RT BUTTOCK PAIN. RX HERE PAIN- COPY PCP Chief Complaint SPINAL STENOSIS. RT BUTTOCK PAIN. RX HERE PAIN- COPY PCP Pain Chief Complaint Pain Chief Complaint Pain [facility] CALLED IN TO [facility] Chief Complaint [facility] CALLED IN TO [facility] PAIN- COPY PCP Chief Complaint LAB CALLED IN TO [facility] PAIN- COPY PCP PAIN- COPY PCP Chief Complaint PAIN- COPY PCP PAIN- COPY PCP Chief Complaint PAIN- COPY PCP PAIN- COPY PCP PAIN- COPY PCP Chief Complaint PAIN- COPY PCP PAIN- COPY PCP fall/pain- LEFT FOOT AND ANKLE Chief Complaint Admit Date PAIN- COPY PCP June 07, 2024 3 :35pm TMJ PAIN June 24, 2024 3:40pm XRAY CERVICAL SPINE July 08, 2024 9:54 am Chief Complaint Admit Date PAIN- COPY PCP June 07, 2024 3 :35pm TMJ PAIN June 24, 2024 3:40pm XRAY CERVICAL SPINE July 08, 2024 9:54 am CERVICAL SPINE July 22, 2024 1:2 3pm Reason for Visit Admit Date Cervical radiculopathy July 22, 2024 1:23pm Chief Complaint Admit Date PAIN- COPY PCP June 07, 2024 3 :35pm TMJ PAIN June 24, 2024 3:40pm XRAY CERVICAL SPINE July 08, 2024 9:54 am CERVICAL SPINE July 22, 2024 1:2 3pm ELEVATED LIVER ENZYMES August 11, 2024 1 0:55am Chief Complaint Admit Date PAIN- COPY PCP June 07, 2024 3 :35pm TMJ PAIN June 24, 2024 3:40pm XRAY CERVICAL SPINE July 08, 2024 9:54 am CERVICAL SPINE July 22, 2024 1:2 3pm ELEVATED LIVER ENZYMES August 11, 2024 1 0:55am PAIN- COPY PCP August 24, 2024 2:2 0pm Chief Complaint Admit Date PAIN- COPY PCP June 07, 2024 3 :35pm TMJ PAIN June 24, 2024 3:40pm XRAY CERVICAL SPINE July 08, 2024 9:54 am CERVICAL SPINE July 22, 2024 1:2 3pm ELEVATED LIVER ENZYMES August 11, 2024 1 0:55am PAIN- COPY PCP August 24, 2024 2:2 0pm SCREENING September 24, 2024 11:58 am Chief Complaint Admit Date XRAY CERVICAL SPINE July 08, 2024 9:54 am CERVICAL SPINE July 22, 2024 1:2 3pm ELEVATED LIVER ENZYMES August 11, 2024 1 0:55am PAIN- COPY PCP August 24, 2024 2:2 0pm SCREENING September 24, 2024 11:58 am Chief Complaint Admit Date CERVICAL SPINE July 22, 2024 1:2 3pm ELEVATED LIVER ENZYMES August 11, 2024 1 0:55am PAIN- COPY PCP August 24, 2024 2:2 0pm SCREENING September 24, 2024 11:58 am Chief Complaint Admit Date ELEVATED LIVER ENZYMES August 11, 2024 1 0:55am PAIN- COPY PCP August 24, 2024 2:2 0pm SCREENING September 24, 2024 11:58 am Chief Complaint Admit Date SCREENING September 24, 2024 11:58 am Chief Complaint Admit Date PAIN- COPY PCP January 13, 2025 11:05am ADD CXR January 14, 2025 12:14pm Reason for Referral Specialty Diagnoses / Procedures Referred By Contac t Referred To Contact CT IMAGING Diagnoses Bronchiectasis without complication (HCC) Lung nodules Procedures CT CHEST WO IVCON DIAGNOSTIC COMPUTED TOMOGRAPHY THORAX W/O Melody Craft MD [address] [place] [address] Ct Imaging [facility] Referral ID Status Reason Start Date Expiration Date Visits Requested Visits Authorized [id number] Authorized Auto-Generat ed Referral 03/18/2025 1 1 Specialty Diagnoses / Procedures Referred By Contac t Referred To Contact [facility] [place] Diagnoses Bronchiectasis without complication (HCC) Procedures LUNG DIFFUSION CAPACITY (DLCO) DIFFUSING CAPACITY Melody Fernandez MD [address] [place] [address] [place] [address] Referral ID Status Reason Start Date Expiration Date V isits Requested Visits Authorized [id number] Closed Auto-Generate d Referral 02/16/2024 03/17/2025 1 1 Specialty Diagnoses / Procedures Referred By Contac t Referred To [facility] [place] Diagnoses Bronchiectasis without complication (HCC) Procedures SPIROMETRY - BASELINE AND POST DILATOR BRNCDILAT RSPSE SPMTRY PRE&POST-BRNCDILAT ADMMelody Price MD [address] [place] [address] [place] [address] Referral ID Status Reason Start Date Expiration Date V isits Requested Visits Authorized [id number] Closed Auto-Generate d Referral 02/16/2024 03/17/2025 1 1 Specialty Diagnoses / Procedures Referred By Contac t Referred To Contact CT IMAGING Diagnoses Lung nodules Ground glass opacity present on imaging of lung Procedures CT CHEST WO IVCON DIAGNOSTIC COMPUTED TOMOGRAPHY THORAX W/O Melody Craft MD [address] [place] [address] Ct Imaging [facility] Referral ID Status Reason Start Date Expiration Date Visits Requested Visits Authorized [id number] New Request Auto-Generat ed Referral 09/01/2024 04/02/2025 1 1 Additional Source Comments INFORMATION SOURCE (unrecogn ized section and content) DATE CREATED AUTHOR 10/23/[address] [facility] DATE CREATED AUTHOR AUTHOR'S ORGANIZ ATION 04/13/2018 [facility] DATE CREATED AUTHOR AUTHOR'S ORGANIZ ATION 07/24/2021 [facility] DATE CREATED AUTHOR AUTHOR'S ORGANIZ ATION 12/02/2024 [facility] DATE CREATED AUTHOR AUTHOR'S ORGANIZ ATION 01/22/2025 [facility] Goals (unrecognized section and content) Goals may be documented in a n alternate sectionGoals may be documented in an alternate sectionGoals may be documented in an alternate sectionGoals may be documented in an alternate sectionGoals may be documented in an alternate sectionGoals may be documented in an alternate sectionGoals may be documented in an alternate sectionGoals may be documented in an alternate sectionGoals may be documented in an alternate sectionGoals may be documented in an alternate sectionGoals may be documented in an alternate sectionGoals may be documented in an alternate sectionGoals may be documented in an alternate sectionGoals may be documented in an alternate sectionGoals may be documented in an alternate sectionGoals may be documented in an alternate sectionGoals may be documented in an alternate sectionGoals may be documented in an alternate sectionGoals may be documented in an alternate sectionGoals may be documented in an alternate sectionGoals may be documented in an alternate sectionGoals may be documented in an alternate sectionGoals may be documented in an alternate sectionGoals may be documented in an alternate sectionGoals may be documented in an alternate sectionGoals may be documented in an alternate sectionGoals may be documented in an alternate sectionGoals may be documented in an alternate sectionGoals may be documented in an alternate sectionGoals may be documented in an alternate sectionGoals may be documented in an alternate sectionGoals may be documented in an alternate sectionGoals may be documented in an alternate section Care Teams (unrecognized sec tion and content) Team Status: Active Member Role Status Dates Dr. Mandy Asher MD Family Provider Active Dr. Mandy Asher MD Primary Care Provider Active Team Status: Inactive Member Role Status Dates Dr. Mandy Asher MD Primary Care Provider, Referring Patricia alaniz Active Dr. Rubens Terrazas MD Attending Provider Active Team Status: Inactive Member Role Status Dates Dr. Mandy Asher MD Primary Care Provider Active Dr. Rosa Dave MD Attending Provider, Referring Provider Active Team Status: Active Member Role Status Dates Dr. Mandy Asher MD Primary Care Provide r, Attending Provider, Referring Provider Active Team Status: Inactive Member Role Status Dates Dr. Mandy Asher MD Primary Care Provide r, Attending Provider, Referring Provider Active Team Status: Inactive Member Role Status Dates Dr. Mandy Asher MD Primary Care Provider Active MILLA Gomez Attending Provider Active Manager Union Relationship Specialty Start Date End Date Mandy Asher MD [address] [place] [address] PCP - General Family Medicine 05/16/23 Manager Union Relationship Specialty Start Date End Date Mandy Asher MD [address] [facility] [address] PCP - General Family Medicine 05/16/23 Manager Union Relationship Specialty Start Date End Date Mandy Asher MD [address] [place] [address] PCP - General Family Medicine 05/16/23 Manager Union Relationship Specialty Start Date End Date Mandy Asher MD [address] [place] [address] PCP - General Family Medicine 05/16/23 Manager Union Relationship Specialty Start Date End Date Mandy Asher MD [address] [place] [address] PCP - General Family Medicine 05/16/23 Manager Union Relationship Specialty Start Date End Date Mandy Asher MD [address] [place] [address] PCP - General Family Medicine 05/16/23 Manager Union Relationship Specialty Start Date End Date Mandy Asher MD [address] [place] [address] PCP - General Family Medicine 05/16/23 Team Status: Inactive Member Role Status Dates Dr. Mandy Asher MD Primary Care Provider Active Start: June 07, 2024 End: June 07, 2024 Dr. Rosa Dave MD Attending Provider Active Start: June 07, 2024 End: June 07, 2024 Dr. oRsa Dave MD Referring Provider Active Start: June 07, 2024 End: June 07, 2024 Team Status: Inactive Member Role Status Dates Dr. Mandy Asher MD Primary Care Provider Active Start: June 24, 2024 End: June 24, 2024 Dr. Vinny Lanza MD Attending Provider Active Start: June 24, 2024 End: June 24, 2024 Dr. Vinny Lanza MD Referring Provider Active Start: June 24, 2024 End: June 24, 2024 Team Status: Inactive Member Role Status Dates Dr. Mandy Asher MD Primary Care Provider Active Start: July 08, 2024 End: July 08, 2024 Dr. Vinny Lanza MD Attending Provider Active Start: July 08, 2024 End: July 08, 2024 Dr. Vinny Lanza MD Referring Provider Active Start: July 08, 2024 End: July 08, 2024 Team Status: Active Member Role Status Dates Dr. Mandy Asher MD Primary Care Provider Active Team Status: Inactive Member Role Status Dates Dr. Mandy Asher MD Primary Care Provider Active Start: July 22, 2024 End: July 22, 2024 Dr. Mandy Asher MD Referring Provider Active St art: July 22, 2024 End: July 22, 2024 MAGALYS Jo Attending Provider Active Star t: July 22, 2024 End: July 22, 2024 Team Status: Inactive Member Role Status Dates Dr. Mandy Asher MD Primary Care Provider Active Start: August 02, 2024 End: August 02, 2024 Dr. Rosa Dave MD Attending Provider Active Start: August 02, 2024 End: August 02, 2024 Dr. Rosa Dave MD Referring Provider Active Start: August 02, 2024 End: August 02, 2024 Team Status: Inactive Member Role Status Dates Dr. Mandy Asher MD Primary Care Provider Active Start: August 11, 2024 End: August 11, 2024 Dr. Rosa Dave MD Attending Provider Active Start: August 11, 2024 End: August 11, 2024 Dr. Rosa Dave MD Referring Provider Active Start: August 11, 2024 End: August 11, 2024 Team Status: Inactive Member Role Status Dates Dr. Mandy Asher MD Primary Care Provider Active Start: August 24, 2024 End: August 24, 2024 Dr. Rosa Dave MD Attending Provider Active Start: August 24, 2024 End: August 24, 2024 Dr. Rosa Dave MD Referring Provider Active Start: August 24, 2024 End: August 24, 2024 Manager Union Relationship Specialty Start Date End Date Mandy Asher MD [address] [place] [id number] PCP - General Family Medicine 05/16/23 Team Status: Inactive Member Role Status Dates Dr. Mandy Asher MD Primary Care Provider Active Start: September 24, 2024 End: September 24, 2024 Dr. Mandy Asher MD Attending Provider Active St art: September 24, 2024 End: September 24, 2024 Dr. Mandy Asher MD Referring Provider Active St art: September 24, 2024 End: September 24, 2024 Team Status: Inactive Member Role Status Dates Dr. Mandy Asher MD Primary Care Provider Active Start: October 22, 2024 End: October 22, 2024 Dr. Rosa Dave MD Attending Provider Active Start: October 22, 2024 End: October 22, 2024 Dr. Rosa Dave MD Referring Provider Active Start: October 22, 2024 End: October 22, 2024 Team Status: Active Member Role/Relationship Status Dates Dr. Mandy Asher MD Primary Care Provider Active Team Status: Inactive Member Role/Relationship Status Dates Dr. Mandy Asher MD Primary Care Provider Active Start: July 22, 2024 End: July 22, 2024 Dr. Mandy Asher MD Referring Provider Active St art: July 22, 2024 End: July 22, 2024 MAGALYS Jo Attending Provider Active Star t: July 22, 2024 End: July 22, 2024 Team Status: Inactive Member Role/Relationship Status Dates Dr. Mandy Asher MD Primary Care Provider Active Start: August 02, 2024 End: August 02, 2024 Dr. Rosa Dave MD Attending Provider Active Start: August 02, 2024 End: August 02, 2024 Dr. Rosa Dave MD Referring Provider Active Start: August 02, 2024 End: August 02, 2024 Team Status: Inactive Member Role/Relationship Status Dates Dr. Mandy Asher MD Primary Care Provider Active Start: August 11, 2024 End: August 11, 2024 Dr. Rosa Dave MD Attending Provider Active Start: August 11, 2024 End: August 11, 2024 Dr. Rosa Dave MD Referring Provider Active Start: August 11, 2024 End: August 11, 2024 Team Status: Inactive Member Role/Relationship Status Dates Dr. Mandy Asher MD Primary Care Provider Active Start: August 24, 2024 End: August 24, 2024 Dr. Rosa Dave MD Attending Provider Active Start: August 24, 2024 End: August 24, 2024 Dr. Rosa Dave MD Referring Provider Active Start: August 24, 2024 End: August 24, 2024 Team Status: Inactive Member Role/Relationship Status Dates Dr. Mandy Asher MD Primary Care Provider Active Start: September 24, 2024 End: September 24, 2024 Dr. Mandy Asher MD Attending Provider Active St art: September 24, 2024 End: September 24, 2024 Dr. Mandy Asher MD Referring Provider Active St art: September 24, 2024 End: September 24, 2024 Team Status: Inactive Member Role/Relationship Status Dates Dr. Mandy Asher MD Primary Care Provider Active Start: October 22, 2024 End: October 22, 2024 Dr. Rosa Dave MD Attending Provider Active Start: October 22, 2024 End: October 22, 2024 Dr. Rosa Dave MD Referring Provider Active Start: October 22, 2024 End: October 22, 2024 Team Status: Inactive Member Role/Relationship Status Dates Dr. Mandy Asher MD Primary Care Provider Active Start: November 08, 2024 End: November 08, 2024 Dr. Mandy Asher MD Attending Provider Active St art: November 08, 2024 End: November 08, 2024 Dr. Mandy Asher MD Referring Provider Active St art: November 08, 2024 End: November 08, 2024 Team Status: Inactive Member Role/Relationship Status Dates Dr. Mandy Asher MD Primary Care Provider Active Start: August 02, 2024 End: August 02, 2024 Dr. Rosa Dave MD Attending Provider Active Start: August 02, 2024 End: August 02, 2024 Dr. Rosa Dave MD Referring Provider Active Start: August 02, 2024 End: August 02, 2024 Team Status: Inactive Member Role/Relationship Status Dates Dr. Mandy Asher MD Primary Care Provider Active Start: August 11, 2024 End: August 11, 2024 Dr. Rosa Dave MD Attending Provider Active Start: August 11, 2024 End: August 11, 2024 Dr. Rosa Dave MD Referring Provider Active Start: August 11, 2024 End: August 11, 2024 Team Status: Inactive Member Role/Relationship Status Dates Dr. Mandy Asher MD Primary Care Provider Active Start: August 24, 2024 End: August 24, 2024 Dr. Rosa Dave MD Attending Provider Active Start: August 24, 2024 End: August 24, 2024 Dr. Rosa Dave MD Referring Provider Active Start: August 24, 2024 End: August 24, 2024 Team Status: Inactive Member Role/Relationship Status Dates Dr. Mandy Asher MD Primary Care Provider Active Start: September 24, 2024 End: September 24, 2024 Dr. Mandy Asher MD Attending Provider Active St art: September 24, 2024 End: September 24, 2024 Dr. Mandy Asher MD Referring Provider Active St art: September 24, 2024 End: September 24, 2024 Team Status: Inactive Member Role/Relationship Status Dates Dr. Mandy Asher MD Primary Care Provider Active Start: October 22, 2024 End: October 22, 2024 Dr. Rosa Dave MD Attending Provider Active Start: October 22, 2024 End: October 22, 2024 Dr. Rosa Dave MD Referring Provider Active Start: October 22, 2024 End: October 22, 2024 Team Status: Inactive Member Role/Relationship Status Dates Dr. Mandy Asher MD Primary Care Provider Active Start: November 08, 2024 End: November 08, 2024 Dr. Mandy Asher MD Attending Provider Active St art: November 08, 2024 End: November 08, 2024 Dr. Mandy Asher MD Referring Provider Active St art: November 08, 2024 End: November 08, 2024 Team Status: Inactive Member Role/Relationship Status Dates Dr. Mandy Asher MD Primary Care Provider Active Start: November 18, 2024 End: November 18, 2024 Dr. Mandy Asher MD Referring Provider Active St art: November 18, 2024 End: November 18, 2024 Dr. Mandy Asher MD Other Provider Active Start: November 18, 2024 End: November 18, 2024 Dr. Rosa Dave MD Attending Provider Active Start: November 18, 2024 End: November 18, 2024 Manager [employer] Relationship Specialty Start Date End Date Mandy Asher MD [address] [place] [id number] PCP - General Family Medicine 05/16/23 Team Status: Inactive Member Role/Relationship Status Dates Dr. Mandy Asher MD Primary Care Provider Active Start: September 24, 2024 End: September 24, 2024 Dr. Mandy Asher MD Attending Provider Active St art: September 24, 2024 End: September 24, 2024 Dr. Mandy Asher MD Referring Provider Active St art: September 24, 2024 End: September 24, 2024 Team Status: Inactive Member Role/Relationship Status Dates Dr. Mandy Asher MD Primary Care Provider Active Start: October 22, 2024 End: October 22, 2024 Dr. Rosa Dave MD Attending Provider Active Start: October 22, 2024 End: October 22, 2024 Dr. Rosa Dave MD Referring Provider Active Start: October 22, 2024 End: October 22, 2024 Team Status: Inactive Member Role/Relationship Status Dates Dr. Mandy Asher MD Primary Care Provider Active Start: November 08, 2024 End: November 08, 2024 Dr. Mandy Asher MD Attending Provider Active St art: November 08, 2024 End: November 08, 2024 Dr. Mandy Asher MD Referring Provider Active St art: November 08, 2024 End: November 08, 2024 Team Status: Inactive Member Role/Relationship Status Dates Dr. Mandy Asher MD Primary Care Provider Active Start: November 18, 2024 End: November 18, 2024 Dr. Mandy Asher MD Referring Provider Active St art: November 18, 2024 End: November 18, 2024 Dr. Mandy Asher MD Other Provider Active Start: November 18, 2024 End: November 18, 2024 Dr. Rosa Dave MD Attending Provider Active Start: November 18, 2024 End: November 18, 2024 Team Status: Inactive Member Role/Relationship Status Dates Dr. Mandy Asher MD Primary Care Provider Active Start: December 23, 2024 End: December 23, 2024 Dr. Rosa Dave MD Attending Provider Active Start: December 23, 2024 End: December 23, 2024 Team Status: Active Member Role/Relationship Status Dates Dr. Mandy Asher MD Primary care physician Active Team Status: Inactive Member Role/Relationship Status Dates Dr. Mandy Asher MD Primary care physician Active Start: October 22, 2024 End: October 22, 2024 Dr. Rosa Dave MD Attending physician Active Start: October 22, 2024 End: October 22, 2024 Dr. Rosa Dave MD Referring Provider Active Start: October 22, 2024 End: October 22, 2024 Team Status: Inactive Member Role/Relationship Status Dates Dr. Mandy Asher MD Primary care physician Active Start: November 08, 2024 End: November 08, 2024 Dr. Mandy Asher MD Attending physician Active S tart: November 08, 2024 End: November 08, 2024 Dr. Mandy Asher MD Referring Provider Active St art: November 08, 2024 End: November 08, 2024 Team Status: Inactive Member Role/Relationship Status Dates Dr. Mandy Asher MD Primary care physician Active Start: November 18, 2024 End: November 18, 2024 Dr. Mandy Asher MD Referring Provider Active St art: November 18, 2024 End: November 18, 2024 Dr. Mandy Asher MD Nurse Practitioner Active St art: November 18, 2024 End: November 18, 2024 Dr. Rosa Dave MD Attending physician Active Start: November 18, 2024 End: November 18, 2024 Team Status: Inactive Member Role/Relationship Status Dates Dr. Mandy Asher MD Primary care physician Active Start: December 23, 2024 End: December 23, 2024 Dr. Rosa Dave MD Attending physician Active Start: December 23, 2024 End: December 23, 2024 Team Status: Inactive Member Role/Relationship Status Dates Dr. Mandy Asher MD Primary care physician Active Start: January 13, 2025 End: January 13, 2025 Dr. Rosa Dave MD Attending physician Active Start: January 13, 2025 End: January 13, 2025 Dr. Rosa Dave MD Referring Provider Active Start: January 13, 2025 End: January 13, 2025 Team Status: Inactive Member Role/Relationship Status Dates Dr. Mandy Asher MD Primary care physician Active Start: January 14, 2025 End: January 14, 2025 Dr. Rosa Dave MD Attending physician Active Start: January 14, 2025 End: January 14, 2025 Dr. Rosa Dave MD Referring Provider Active Start: January 14, 2025 End: January 14, 2025 Source Comments (unrecognize d section and content) In the event this informatio n is protected by the Federal Confidentiality of Alcohol and Drug Abuse Patient Records regulations: The Federal rules restrict any use of the information to criminally investigate or prosecute any alcohol or drug abuse patient.[facility] the event this information is protected by the Federal Confidentiality of Alcohol and Drug Abuse Patient Records regulations: The Federal rules restrict any use of the information to criminally investigate or prosecute any alcohol or drug abuse patient.[facility] the event this information is protected by the Federal Confidentiality of Alcohol and Drug Abuse Patient Records regulations: The Federal rules restrict any use of the information to criminally investigate or prosecute any alcohol or drug abuse patient.[facility] the event this information is protected by the Federal Confidentiality of Alcohol and Drug Abuse Patient Records regulations: The Federal rules restrict any use of the information to criminally investigate or prosecute any alcohol or drug abuse patient.[facility] the event this information is protected by the Federal Confidentiality of Alcohol and Drug Abuse Patient Records regulations: The Federal rules restrict any use of the information to criminally investigate or prosecute any alcohol or drug abuse patient.[facility] the event this information is protected by the Federal Confidentiality of Alcohol and Drug Abuse Patient Records regulations: The Federal rules restrict any use of the information to criminally investigate or prosecute any alcohol or drug abuse patient.[facility] the event this information is protected by the Federal Confidentiality of Alcohol and Drug Abuse Patient Records regulations: The Federal rules restrict any use of the information to criminally investigate or prosecute any alcohol or drug abuse patient.[facility] the event this information is protected by the Federal Confidentiality of Alcohol and Drug Abuse Patient Records regulations: The Federal rules restrict any use of the information to criminally investigate or prosecute any alcohol or drug abuse patient.[facility] CenterIn the event this information is protected by the Federal Confidentiality of Alcohol and Drug Abuse Patient Records regulations: The Federal rules restrict any use of the information to criminally investigate or prosecute any alcohol or drug abuse patient.[facility] CenterIn the event this information is protected by the Federal Confidentiality of Alcohol and Drug Abuse Patient Records regulations: The Federal rules restrict any use of the information to criminally investigate or prosecute any alcohol or drug abuse patient.[facility] CenterIn the event this information is protected by the Federal Confidentiality of Alcohol and Drug Abuse Patient Records regulations: The Federal rules restrict any use of the information to criminally investigate or prosecute any alcohol or drug abuse patient.[facility] CenterIn the event this information is protected by the Federal Confidentiality of Alcohol and Drug Abuse Patient Records regulations: The Federal rules restrict any use of the information to criminally investigate or prosecute any alcohol or drug abuse patient.[facility] Reason for Visit (unrecogniz ed section and content) Reason Comments Spirometry Specialty Diagnoses / Procedures Referred By Contac t Referred To Contact [facility] Diagnoses Bronchiectasis without complication (HCC) Procedures LUNG DIFFUSION CAPACITY (DLCO) DIFFUSING CAPACITY Melody Fernandez MD [address] [place] [address] [facility] [place] [address] [place] [address] Referral ID Status Reason Start Date Expiration Date V isits Requested Visits Authorized [id number] Closed Auto-Generate d Referral 02/16/2024 03/17/2025 1 1 Specialty Diagnoses / Procedures Referred By Contac t Referred To [facility] Diagnoses Bronchiectasis without complication (HCC) Procedures SPIROMETRY - BASELINE AND POST DILATOR BRNCDILAT RSPSE SPMTRY PRE&POST-BRNCDILAT Melody Gilbert MD [address] [place] [address] [facility] [place] [address] [id number] Referral ID Status Reason Start Date Expiration Date V isits Requested Visits Authorized [id number] Closed Auto-Generate d Referral 02/16/2024 03/17/2025 1 1 Reason Comments Consult COPD Reason Comments Radiology CT Specialty Diagnoses / Procedures Referred By Contac t Referred To Contact CT IMAGING Diagnoses Bronchiectasis without complication (HCC) Lung nodules Procedures CT CHEST WO IVCON DIAGNOSTIC COMPUTED TOMOGRAPHY THORAX W/O Melody Craft MD [address] [place] [address] Ct Imaging [id number] Referral ID Status Reason Start Date Expiration Date V isits Requested Visits Authorized [id number] Closed Auto-Generate d Referral 02/17/2024 03/18/2025 1 1 Reason Comments Results Chest CT Reason Comments Established Patient COPD Asthma COPD Abnormal Chest X-ray Reason Comments Refill Request Reason Comments Med Change Request Specialty Diagnoses / Procedures Referred By Contac t Referred To Contact CT IMAGING Diagnoses Lung nodules Ground glass opacity present on imaging of lung Procedures CT CHEST WO IVCON DIAGNOSTIC COMPUTED TOMOGRAPHY THORAX W/O Melody Craft MD [address] [place] [address] Phone: tel: fax: [facility]AG[id number] Referral ID Status Reason Start Date Expiration Date V isits Requested Visits Authorized [id number] Closed Auto-Generate d Referral 09/01/2024 04/02/2025 1 1 Reason Comments Recheck FOR RECORDS PERTAINING TO PATIENTS WHO ARE [...] BE BASED ON THE PRIMARY CLINICAL RECORDS. [facility] [employer] [facility]. provides no warranty or guarantee of the accuracy or completeness of information in this document.
== END | disposition home or self-care (01) ==
LOC: MTLAB 13:09
PROVIDERS: PCP Family Medicine; Referring Provider Internal Medicine Rheumatology; Visit Provider Internal Medicine Rheumatology
DX: M06.09 Rheumatoid arthritis without rheumatoid factor, multiple sites (principal); M25.512 Pain in left shoulder; M35.00 Sjogren syndrome, unspecified
CPT/HCPCS: 36415; 80053; 85025